=== PATIENT | male | born 1950 | race Caucasian/White ===

== ENCOUNTER → 2016-10-17 | Outpatient (CLI) | payer MEDICARE | END | disposition home or self-care (01) | LOC: LABWHC1 09:13 | PROVIDERS: ATTEND Internal Medicine Endocrinology, Diabetes & Metabolism | DX: E05.90 Thyrotoxicosis, unspecified without thyrotoxic crisis or storm (principal) | CPT/HCPCS: 36415; 84439; 84443 ==

== ENCOUNTER 2016-11-27 13:35 | Emergency (ER) | payer MEDICARE ==
[2016-11-27 13:55] VITALS: RESP 18
[2016-11-27] MEDS ORDERED: NITROGLYCERIN OINT 1 INCH/GM PACKET TOPICAL STA (13:59)
[2016-11-27] MEDS ORDERED: ASPIRIN 81 MG CHEW PO STA (13:59)
--- NOTE | 2016-11-27 14:03 | ED ---
General Adult HPI - General Chief complaint: Chest Pain Stated complaint: Chest Pain Time Seen by Provider: 11/27/16 13:50 Source: patient, RN notes reviewed Mode of arrival: wheelchair - History of Present Illness Initial comments: This is a 66-year-old male who presents to the emergency department with a past medical history significant for angina. Patient states he's been here many times for chest pain. Patient states today the chest pain radiates across his chest and down his left arm. Patient denies any diaphoresis. Patient denies nausea patient denies any shortness of breath. Patient states she call cardiology's office and they sent him in the emergency department. Patient denies any abdominal pain patient denies nausea vomiting diarrhea. Patient denies any recent fever chills or cough. Patient denies headache patient denies numbness weakness. Patient denies any lightheadedness dizziness or near syncopal episode. - Related Data Home Medications Medication Instructions Recorded Confirmed Temazepam [Restoril] 30 mg PO HS 03/05/15 11/27/16 Citalopram Hydrobromide [CeleXA] 40 mg PO DAILY 02/05/16 11/27/16 Morphine Sulfate Ir [MSIR] 15 mg PO BID PRN 02/05/16 11/27/16 Fluticasone Nasal [place] [Flonase 2 spray EA NOSTRIL BID 05/30/16 11/27/16 Nasal [place]] Levocetirizine Dihydrochloride 5 mg PO HS 07/13/16 11/27/16 [Xyzal] Tamsulosin [Flomax] 0.4 mg PO HS 07/13/16 11/27/16 ALPRAZolam [Xanax] 0.25 mg PO DAILY PRN 07/15/16 11/27/16 Hyoscyamine Sulfate [Levsin-Sl] 0.125 mg SL AC-TID PRN 08/04/16 11/27/16 Capsaicin Cream [Trixaicin Cream] 1 applic TOPICAL Q12H PRN 11/27/16 11/27/16 Lidocaine 5% Oint [Xylocaine 5% 1 applic TOPICAL TID PRN 11/27/16 11/27/16 Oint] Lisinopril [Zestril] 10 mg PO DAILY 11/27/16 11/27/16 metFORMIN HCL [Glucophage Xr] 500 mg PO AC-BRKFST 11/27/16 11/27/16 Allergies Allergy/AdvReac Type Severity Reaction Status Date / Time cephalexin monohydrate Allergy Rash/Hives Verified 11/27/16 15:01 [From Keflex] clarithromycin [From Biaxin] Allergy Unknown Verified 11/27/16 15:01 gentamicin [Gentamicin] Allergy Unknown Verified 11/27/16 15:01 naproxen Allergy Unknown Verified 11/27/16 15:01 Penicillins Allergy Anaphylaxis Verified 11/27/16 15:01 Sulfa (Sulfonamide Allergy Rash/Hives Verified 11/27/16 15:01 Antibiotics) promethazine AdvReac Nausea & Verified 11/27/16 15:01 Vomiting Review of Systems ROS Statement: Those systems with pertinent positive or pertinent negative responses have been documented in the HPI. ROS Other: All systems not noted in ROS Statement are negative. Past Medical History Past Medical History: Chest Pain / Angina, Diabetes Mellitus, GERD/Reflux, Hypertension, Prostate Disorder Additional Past Medical History / Comment(s): migraines, diverticulosis, kidney stones, neurpathy hands & feet, low BACK PAIN-sees Dr. Jackson, History of Any Multi-Drug Resistant Organisms: None Reported Past Surgical History: Cholecystectomy, Heart Catheterization, Hernia Repair, Orthopedic Surgery Additional Past Surgical History / Comment(s): EGD , Laparoscopic Mireya Fundoplasty, lap uma, CYSTOSCOPY AND LITHITRIPSY LT URETERAL STENT-SINCE REMOVED. RIGHT BREAST BIOPSY, TOTAL LT KNEE ; LT FOOT , LARA INGUINAL HERNIA, PERCUTANEOUS NEPHROLITHOTOMY. BILATERAL hand surgery. , back procedure for nerve endings and [facility], colonoscopy.ESOPHGEAL DILATION Past Anesthesia/Blood Transfusion Reactions: No Reported Reaction, Motion Sickness Past Psychological History: Anxiety, Panic Disorder Additional Psychological History / Comment(s): . Smoking Status: Former smoker Past Alcohol Use History: None Reported Additional Past Alcohol Use History / Comment(s): STARTED SMOKING AT AGE 12, SMOKED 1 PPD, QUIT 2012 Past Drug Use History: None Reported - Past Family History Father Family Medical History: Cancer Mother Family Medical History: Liver Disease Additional Family Medical History / Comment(s): Mother had hepatitis. General Exam - General Exam Comments Initial Comments: GENERAL: Patient is well-developed and well-nourished. Patient is nontoxic and well- hydrated and is in mild distress. ENT: Neck is soft and supple. No significant lymphadenopathy is noted. Oropharynx is clear. Moist mucous membranes. Neck has full range of motion without eliciting any pain. EYES: The sclera were anicteric and conjunctiva were pink and moist. Extraocular movements were intact and pupils were equal round and reactive to light. Eyelids were unremarkable. PULMONARY: Unlabored respirations. Good breath sounds bilaterally. No audible rales rhonchi or wheezing was noted. CARDIOVASCULAR: Patient states that the chest pain is reproducible when I palpate his chest however it does radiate down his left arm ABDOMEN: Soft and nontender with normal bowel sounds. No palpable organomegaly was noted. There is no palpable pulsatile mass. SKIN: Skin is clear with no lesions or rashes and otherwise unremarkable. NEUROLOGIC: Patient is alert and oriented x3. Cranial nerves II through XII are grossly intact. Motor and sensory are also intact. Normal speech, volume and content. Symmetrical smile. MUSCULOSKELETAL: Normal extremities with adequate strength and full range of motion. No lower extremity swelling or edema. No calf tenderness. LYMPHATICS: No significant lymphadenopathy is noted PSYCHIATRIC: Normal psychiatric evaluation. Normal interpersonal interactions appears functionally intact in deals appropriately with others. No signs of depression. No signs of anxiety. Course Vital Signs 11/27/16 11/27/16 11/27/16 13:50 14:11 14:47 Temperature 98.7 F Pulse Rate 73 71 72 Respiratory 18 18 18 Rate Blood Pressure 138/70 127/67 109/60 O2 Sat by Pulse 95 95 Oximetry Medical Decision Making - Medical Decision Making EKG shows sinus rhythm with occasional PVC at 70 bpm. It was 172 QRS is 96 Q-T intervals 442 QTC is 477 per patient's EKG shows no ST segment elevation or T wave abnormalities. Chest x-ray shows no acute abnormality. I spoke with Dr. Pascal about the patient's results Dr. Pascal wanted the patient to follow-up with him later this week. Patient stated he already had a follow- up appointment. - Lab Data Result diagrams: 11/27/16 14:00 11/27/16 14:00 Lab Results 11/27/16 11/27/16 11/27/16 Range/Units 14:00 14:00 14:00 WBC 10.8 H (3.8-10.6) k/uL RBC 4.30 (4.30-5.90) m/uL Hgb 13.2 (13.0-17.5) gm/dL Hct 41.2 (39.0-53.0) % MCV 95.8 (80.0-100.0) fL MCH 30.7 (25.0-35.0) pg MCHC 32.1 (31.0-37.0) g/dL RDW 21.0 H (11.5-15.5) % Plt Count 296 (150-450) k/uL Neutrophils % 60 % Lymphocytes % 26 % Monocytes % 8 % Eosinophils % 2 % Basophils % 2 % Neutrophils # 6.4 (1.3-7.7) k/uL Lymphocytes # 2.8 (1.0-4.8) k/uL Monocytes # 0.9 (0-1.0) k/uL Eosinophils # 0.2 (0-0.7) k/uL Basophils # 0.2 (0-0.2) k/uL Hypochromasia Slight Anisocytosis Moderate Macrocytosis Slight PT (9.0-12.0) sec INR (<1.1) APTT (22.0-30.0) sec Sodium 143 (137-145) mmol/L Potassium 4.1 (3.5-5.1) mmol/L Chloride 107 (98-107) mmol/L Carbon Dioxide 26 (22-30) mmol/L Anion Gap 10 mmol/L BUN 13 (9-20) mg/dL Creatinine 0.82 (0.66-1.25) mg/dL Est GFR (MDRD) Af Amer >60 (>60 ml/min/1.73 sqM) Est GFR (MDRD) Non-Af >60 (>60 ml/min/1.73 sqM) Glucose 140 H (74-99) mg/dL Calcium 9.3 (8.4-10.2) mg/dL Magnesium 1.7 (1.6-2.3) mg/dL Total Bilirubin 1.0 (0.2-1.3) mg/dL AST 23 (17-59) U/L ALT 26 (21-72) U/L Alkaline Phosphatase 357 H (38-126) U/L Total Creatine Kinase 124 (55-170) U/L CK-MB (CK-2) 2.4 (0.0-2.4) ng/mL CK-MB (CK-2) Rel Index 1.9 Troponin I <0.012 (0.000-0.034) ng/mL Total Protein 6.9 (6.3-8.2) g/dL Albumin 4.2 (3.5-5.0) g/dL 11/27/16 Range/Units 14:00 WBC (3.8-10.6) k/uL RBC (4.30-5.90) m/uL Hgb (13.0-17.5) gm/dL Hct (39.0-53.0) % MCV (80.0-100.0) fL MCH (25.0-35.0) pg MCHC (31.0-37.0) g/dL RDW (11.5-15.5) % Plt Count (150-450) k/uL Neutrophils % % Lymphocytes % % Monocytes % % Eosinophils % % Basophils % % Neutrophils # (1.3-7.7) k/uL Lymphocytes # (1.0-4.8) k/uL Monocytes # (0-1.0) k/uL Eosinophils # (0-0.7) k/uL Basophils # (0-0.2) k/uL Hypochromasia Anisocytosis Macrocytosis PT 11.5 (9.0-12.0) sec INR 1.1 (<1.1) APTT 23.8 (22.0-30.0) sec Sodium (137-145) mmol/L Potassium (3.5-5.1) mmol/L Chloride (98-107) mmol/L Carbon Dioxide (22-30) mmol/L Anion Gap mmol/L BUN (9-20) mg/dL Creatinine (0.66-1.25) mg/dL Est GFR (MDRD) Af Amer (>60 ml/min/1.73 sqM) Est GFR (MDRD) Non-Af (>60 ml/min/1.73 sqM) Glucose (74-99) mg/dL Calcium (8.4-10.2) mg/dL Magnesium (1.6-2.3) mg/dL Total Bilirubin (0.2-1.3) mg/dL AST (17-59) U/L ALT (21-72) U/L Alkaline Phosphatase (38-126) U/L Total Creatine Kinase (55-170) U/L CK-MB (CK-2) (0.0-2.4) ng/mL CK-MB (CK-2) Rel Index Troponin I (0.000-0.034) ng/mL Total Protein (6.3-8.2) g/dL Albumin (3.5-5.0) g/dL Disposition Clinical Impression: Atypical chest pain Disposition: HOME SELF-CARE Condition: Good Instructions: Chest Pain (ED) Referrals: Vinny Pascal DO [Primary Care Provider] - 1-2 days Time of Disposition: 15:10
[2016-11-27 14:16] LABS: Anisocytosis Moderate; Basophils # (A) 0.2 k/uL (0-0.2); Basophils % (A) 2 %; CH 31.6; Eosinophils # (A) 0.2 k/uL (0-0.7); Eosinophils % (A) 2 %; HCT 41.2 % (39.0-53.0); HDW 3.39; HGB 13.2 gm/dL (13.0-17.5); Hypochromasia Slight; Luc # (Auto) 0.34; Luc % (Auto) 3; Lymphocytes # (A) 2.8 k/uL (1.0-4.8); Lymphocytes % (A) 26 %; MCH 30.7 pg (25.0-35.0); MCHC 32.1 g/dL (31.0-37.0); MCV 95.8 fL (80.0-100.0); Macrocytosis Slight; Mean Platelet Volume 9.3; Monocytes # (A) 0.9 k/uL (0-1.0); Monocytes % (A) 8 %; Neutrophils # (A) 6.4 k/uL (1.3-7.7); Neutrophils % (A) 60 %; WBC 10.8 k/uL (3.8-10.6); WBC (Perox) 10.64
[2016-11-27 14:23] LABS: ALT 26 U/L (21-72); AST 23 U/L (17-59); Alkaline Phosphatase 357 U/L (38-126); Anion Gap 10 mmol/L; Blood Urea Nitrogen 13 mg/dL (9-20); Calcium 9.3 mg/dL (8.4-10.2); Carbon Dioxide 26 mmol/L (22-30); Chloride 107 mmol/L (98-107); Glucose 140 mg/dL (74-99); Magnesium 1.7 mg/dL (1.6-2.3); Non-African American GFR(MDRD) >60 (>60 ml/min/1.73 sqM); Potassium 4.1 mmol/L (3.5-5.1); Sodium 143 mmol/L (137-145); Total Protein 6.9 g/dL (6.3-8.2)
[2016-11-27 14:40] LABS: INR 1.1 (<1.1); Partial Thromboplastin Time 23.8 sec (22.0-30.0); Prothrombin Time 11.5 sec (9.0-12.0)
[2016-11-27 14:44] LABS: Creatine Kinase 124 U/L (55-170)
[2016-11-27 14:57] LABS: Creatine Kinase MB 2.4 ng/mL (0.0-2.4); Troponin I <0.012 ng/mL (0.000-0.034)
--- NOTE | 2016-11-27 15:00 | XR ---
EXAMINATION TYPE: XR chest 2V DATE OF EXAM: 11/27/2016 2:55 PM COMPARISON: Chest x-ray August 11, 2016. Older chest x-rays July 13, 2016 HISTORY: Chest pain going into left shoulder. TECHNIQUE: Frontal and lateral views of the chest are obtained. FINDINGS: There is redemonstration of left basilar opacity similar to prior exam. New from June tudy. Right lung remains clear. No pleural effusion or pneumothorax is seen bilaterally. The cardiac silhouette size is within normal limits. The osseous structures are intact. IMPRESSION: Left basilar infiltrate and/or atelectasis redemonstrated
[2016-11-27 15:34] VITALS: BP 112/76; PULSE 79; TEMP 98.8
== END 2016-11-27 15:32 | disposition home or self-care (01) ==
LOC: EC 13:35
DX: R07.89 Other chest pain (principal); M79.602 Pain in left arm; I10 Essential (primary) hypertension; E11.9 Type 2 diabetes mellitus without complications; F41.0 Panic disorder [episodic paroxysmal anxiety]; N42.9 Disorder of prostate, unspecified; Z79.84 Long term (current) use of oral hypoglycemic drugs; Z79.899 Other long term (current) drug therapy; Z87.891 Personal history of nicotine dependence; Z88.0 Allergy status to penicillin; Z88.1 Allergy status to other antibiotic agents; Z88.2 Allergy status to sulfonamides; Z88.6 Allergy status to analgesic agent; Z88.8 Allergy status to other drugs, medicaments and biological substances; Z95.818 Presence of other cardiac implants and grafts
CPT/HCPCS: 36415; 71020; 80053; 82550; 82553; 83735; 84484; 85025; 85610; 85730; 93005; 99285

== ENCOUNTER → 2016-12-04 | Outpatient (CLI) | payer MEDICARE | END | disposition home or self-care (01) | LOC: LABWHC1 11:57 | PROVIDERS: ATTEND Internal Medicine Endocrinology, Diabetes & Metabolism | DX: E05.90 Thyrotoxicosis, unspecified without thyrotoxic crisis or storm (principal) | CPT/HCPCS: 36415; 84439; 84443 ==

== ENCOUNTER → 2016-12-08 | Outpatient (CLI) | payer MEDICARE ==
--- NOTE | 2016-12-08 09:14 | CT ---
EXAMINATION TYPE: CT abdomen wo con DATE OF EXAM: 12/08/2016 8:07 AM COMPARISON: Prior CT 17 July 2016 HISTORY: abdominal pain CT DLP: 326.9 mGycm Automated exposure control for dose reduction was used. TECHNIQUE: Helical acquisition of images was performed from the lung bases through the top of iliac crest to include entire abdomen. CONTRAST: Performed with Oral Contrast and without IV contrast. FINDINGS: LUNG BASES: Some probable basilar scarring again noted, no pleural or pericardial effusion. There is a hiatal hernia or possible dilated distal esophagus as on prior exam. Aortic root is borderline dila jeffrey at 4 cm. LIVER/GB: Cystic foci within the left and right lobe are stable. Gallbladder is absent. PANCREAS: No significant abnormality is seen. SPLEEN: No significant abnormality is seen. ADRENALS: No significant abnormality is seen. KIDNEYS: Cystic focus in the right kidney is not as well seen but is thought to be unchanged. Calcifi cations associated with the left kidney with areas of parenchymal scarring, cortical thinning, cortic al cysts in lower pole, nonobstructing calcification are stable. BOWEL: No significant abnormality is seen. LYMPH NODES: No adenopathy evident OSSEOUS STRUCTURES: Degenerative disc disease with disc loss at L5-S1 is noted, there is a slight sp inal curvature. Diverticular changes associated with the colon. FREE AIR: No Free Air visible ASCITES: None visible. RETROPERITONEAL ADENOPATHY: No Retroperitoneal Adenopathy visible. The appendix is normal IMPRESSION: ESSENTIALLY STABLE EXAM. NO ACUTE ABNORMALITIES EVIDENT NONOBSTRUCTIVE LEFT NEPHROLITHIASIS WITH AREA S OF SCARRING AND CALCIFICATION. POSSIBLE RECURRENT HIATAL HERNIA OR DILATED DISTAL ESOPHAGEAL POUCH
== END ==
LOC: RADCTMAIN 07:15
PROVIDERS: ATTEND Family Medicine
DX: R10.9 Unspecified abdominal pain (principal)
CPT/HCPCS: 74150

== ENCOUNTER → 2016-12-12 | Outpatient (CLI) | payer MEDICARE | END | disposition home or self-care (01) | LOC: LABWHC1 10:21 | PROVIDERS: ATTEND Internal Medicine Endocrinology, Diabetes & Metabolism | DX: E05.90 Thyrotoxicosis, unspecified without thyrotoxic crisis or storm (principal) | CPT/HCPCS: 36415; 84439; 84443; 84480 ==

== ENCOUNTER → 2016-12-18 | Outpatient (CLI) | payer MEDICARE ==
--- NOTE | 2016-12-18 09:28 | FL ---
EXAMINATION TYPE: FL UGI air w esophagus DATE OF EXAM: 12/18/2016 9:10 AM COMPARISON: NONE HISTORY: Repeated esophageal dilatations TECHNIQUE: A double contrast UGI study is performed. FINDINGS: Pick Up Attendant image of the abdomen shows no gross abnormality. There is a small indentation upon the posterior esophagus at C4-5 and C5-6 due to osteophytes. There is no evidence of esophageal stricture. There is a small, self reducing sliding hiatal hernia. Limited views of the stomach are unremarkable. IMPRESSION: 1. NO EVIDENCE OF ESOPHAGEAL STRICTURE AT THIS TIME. 2. SMALL, SELF REDUCING SLIDING HIATAL HERNIA.
== END | disposition home or self-care (01) ==
LOC: RADFLWHC 08:04
PROVIDERS: ATTEND Surgery
DX: K44.9 Diaphragmatic hernia without obstruction or gangrene (principal); K22.4 Dyskinesia of esophagus; Z79.890 Hormone replacement therapy
CPT/HCPCS: 74246

== ENCOUNTER → 2016-12-21 | Outpatient (CLI) | payer MEDICARE ==
--- NOTE | 2016-12-21 13:56 | CT ---
EXAMINATION TYPE: CT abdomen pelvis wo con DATE OF EXAM: 12/21/2016 1:36 PM COMPARISON: 12/08/2016 HISTORY: flank pain, hx of renal stones CT DLP: 419 mGycm FINDINGS: LUNG BASES: No evidence for nodule. No evidence for infiltrate. LIVER/GB: The gallbladder is been surgically excised. No space-occupying hepatic lesion. PANCREAS: No pancreatic mass identified. No inflammatory process seen. SPLEEN: No evidence for splenomegaly. No intrasplenic lesions seen. ADRENALS: No adrenal nodules identified. No evidence for thickening. KIDNEYS: Nonobstructing calculus lower pole left kidney measures 6 mm. Additional areas of the left r enal parenchymal scarring with several calcifications noted unchanged from prior study. There is no e vidence for obstructing calculus. No right-sided renal calculi are evident. Urinary bladder is grossl y unremarkable. Cystic lesion right kidney. BOWEL: Appendix has a normal appearance. No evidence of bowel obstruction. No inflammatory process. T here is small fixed hiatal hernia. Apparent previous of Leo fundoplication. Lymph nodes: No evidence for adenopathy greater than 1 cm. Abdominal aorta: Atheromatous changes seen. No evidence for aneurysm. Genital organs: No significant abnormality. Other: No significant abnormality. IMPRESSION: 1 STABLE EXAMINATION WITHOUT OBSTRUCTION UROPATHY. 2. FIXED HIATAL HERNIA.
== END | disposition home or self-care (01) ==
LOC: RADCTMAIN 13:09
PROVIDERS: ATTEND Urology
DX: K44.9 Diaphragmatic hernia without obstruction or gangrene (principal)
CPT/HCPCS: 74176

== ENCOUNTER 2016-12-22 16:47 | Emergency (ER) | payer MEDICARE ==
[2016-12-22 17:21] VITALS: RESP 18; TEMP 97.5
[2016-12-22] MEDS ORDERED: diphenhydrAMINE 50 MG/ML 1 ML VIAL IVP STA (19:58)
[2016-12-22] MEDS ORDERED: ONDANSETRON 4 MG/2 ML VIAL IVP STA (19:58)
[2016-12-22] MEDS ORDERED: SODIUM CHLORIDE 0.9% 500 ML IV STA (19:58)
[2016-12-22] MEDS ORDERED: PANTOPRAZOLE 40 MG/10 ML VIAL IVP STA (19:58)
[2016-12-22] MEDS ORDERED: SODIUM CHLORIDE 0.9% 1,000 ML IV STA (19:58)
[2016-12-22] MEDS ORDERED: HYDROmorphone 2 MG/ML 1 ML SYRINGE IVP STA ×2 (19:59→21:35)
--- NOTE | 2016-12-22 20:38 | ED ---
General Adult HPI - General Chief complaint: Abdominal Pain Stated complaint: POSS KIDNEY STONES Time Seen by Provider: 12/22/16 19:52 Source: patient, RN notes reviewed, old records reviewed Mode of arrival: ambulatory - History of Present Illness Initial comments: This is a 66-year-old male the ER for evaluation today. Patient is here for evaluation. Pain. About pain that is severe in nature similar to prior history of kidney stone. Patient has multiple issues medically, but also has history of kidney stones, saws urologist yesterday and it follow-up outpatient CT which did show kidney stone this [place], the ER for further evaluation. Patient does complain of left-sided flank pain this time nausea vomiting or diarrhea mild blood in his stool and urine - Related Data Home Medications Medication Instructions Recorded Confirmed Temazepam [Restoril] 30 mg PO HS 03/05/15 12/22/16 Citalopram Hydrobromide [CeleXA] 40 mg PO DAILY 02/05/16 12/22/16 Morphine Sulfate Ir [MSIR] 15 mg PO BID PRN 02/05/16 12/22/16 Fluticasone Nasal [place] [Flonase 2 spray EA NOSTRIL BID 05/30/16 12/22/16 Nasal [place]] Levocetirizine Dihydrochloride 5 mg PO HS 07/13/16 12/22/16 [Xyzal] Tamsulosin [Flomax] 0.4 mg PO HS 07/13/16 12/22/16 ALPRAZolam [Xanax] 0.25 mg PO DAILY PRN 07/15/16 12/22/16 Hyoscyamine Sulfate [Levsin-Sl] 0.125 mg SL AC-TID PRN 08/04/16 12/22/16 Capsaicin Cream [Trixaicin Cream] 1 applic TOPICAL Q12H PRN 11/27/16 12/22/16 Lidocaine 5% Oint [Xylocaine 5% 1 applic TOPICAL TID PRN 11/27/16 12/22/16 Oint] metFORMIN HCL [Glucophage Xr] 500 mg PO AC-BRKFST 11/27/16 12/22/16 Aspirin EC [Ecotrin Low Dose] 81 mg PO DAILY 12/22/16 12/22/16 Isosorbide Mononitrate ER [Imdur] 15 mg PO DAILY 12/22/16 12/22/16 Lisinopril [Prinivil] 5 mg PO DAILY 12/22/16 12/22/16 Omeprazole 40 mg PO BID 12/22/16 12/22/16 Allergies Allergy/AdvReac Type Severity Reaction Status Date / Time cephalexin monohydrate Allergy Rash/Hives Verified 12/22/16 20:24 [From Keflex] clarithromycin [From Biaxin] Allergy Unknown Verified 12/22/16 20:24 gentamicin [Gentamicin] Allergy Unknown Verified 12/22/16 20:24 naproxen Allergy Unknown Verified 12/22/16 20:24 Penicillins Allergy Anaphylaxis Verified 12/22/16 20:24 Sulfa (Sulfonamide Allergy Rash/Hives Verified 12/22/16 20:24 Antibiotics) promethazine AdvReac Nausea & Verified 12/22/16 20:24 Vomiting Review of Systems ROS Statement: Those systems with pertinent positive or pertinent negative responses have been documented in the HPI. ROS Other: All systems not noted in ROS Statement are negative. Past Medical History Past Medical History: Chest Pain / Angina, Diabetes Mellitus, GERD/Reflux, Hypertension, Prostate Disorder Additional Past Medical History / Comment(s): migraines, diverticulosis, kidney stones, neurpathy hands & feet, low BACK PAIN-sees Dr. Jackson, History of Any Multi-Drug Resistant Organisms: None Reported Past Surgical History: Cholecystectomy, Heart Catheterization, Hernia Repair, Orthopedic Surgery Additional Past Surgical History / Comment(s): EGD , Laparoscopic Mireya Fundoplasty, lap uma, CYSTOSCOPY AND LITHITRIPSY LT URETERAL STENT-SINCE REMOVED. RIGHT BREAST BIOPSY, TOTAL LT KNEE ; LT FOOT , LARA INGUINAL HERNIA, PERCUTANEOUS NEPHROLITHOTOMY. BILATERAL hand surgery. , back procedure for nerve endings and [facility], colonoscopy.ESOPHGEAL DILATION Past Anesthesia/Blood Transfusion Reactions: No Reported Reaction, Motion Sickness Past Psychological History: Anxiety, Panic Disorder Additional Psychological History / Comment(s): . Smoking Status: Former smoker Past Alcohol Use History: None Reported Additional Past Alcohol Use History / Comment(s): STARTED SMOKING AT AGE 12, SMOKED 1 PPD, QUIT 2012 Past Drug Use History: None Reported - Past Family History Father Family Medical History: Cancer Mother Family Medical History: Liver Disease Additional Family Medical History / Comment(s): Mother had hepatitis. General Exam General appearance: alert, in no apparent distress Head exam: Present: atraumatic, normocephalic, normal inspection Eye exam: Present: normal appearance, PERRL, EOMI. Absent: scleral icterus, conjunctival injection, periorbital swelling ENT exam: Present: normal exam, mucous membranes moist Neck exam: Present: normal inspection. Absent: tenderness, meningismus, lymphadenopathy Respiratory exam: Present: normal lung sounds bilaterally. Absent: respiratory distress, wheezes, rales, rhonchi, stridor Cardiovascular Exam: Present: regular rate, normal rhythm, normal heart sounds. Absent: systolic murmur, diastolic murmur, rubs, gallop, clicks GI/Abdominal exam: Present: soft, normal bowel sounds. Absent: distended, tenderness, guarding, rebound, rigid Extremities exam: Present: normal inspection, full ROM, normal capillary refill. Absent: tenderness, pedal edema, joint swelling, calf tenderness Back exam: Present: normal inspection Neurological exam: Present: alert, oriented X3, CN II-XII intact Psychiatric exam: Present: normal affect, normal mood Skin exam: Present: warm, dry, intact, normal color. Absent: rash Course Vital Signs 12/22/16 17:18 Temperature 97.5 F L Pulse Rate 64 Respiratory 18 Rate Blood Pressure 122/58 O2 Sat by Pulse 97 Oximetry - Reevaluation(s) Reevaluation #1: 12/22/16 20:45 Patient's pain is resolved Medical Decision Making - Medical Decision Making 66 LEF reevaluation pain. Patient has right-sided flank pain daily with certify pain history of kidney stones. The symptoms resolved with pain control, reviewed CT from yesterday is reviewed and is negative. Lab work is normal at this time patient can be discharged home - Radiology Data Radiology results: report reviewed (CT pelvis is negative for acute disease from yesterday), image reviewed Disposition Clinical Impression: Left flank pain, Nephrolithiasis Disposition: HOME SELF-CARE Condition: Good Instructions: Kidney Stones (ED) Referrals: Vinny Pascal DO [Primary Care Provider] - 1-2 days
[2016-12-22 20:45] LABS: Appearance,Urine Clear (Clear); Bilirubin,Urine Negative (Negative); Glucose,Urine (UA) Negative (Negative); Ketones,Urine Negative (Negative); Leukocyte Esterase,Urine Negative (Negative); Mucus,Urine Moderate /hpf; Nitrite,Urine Negative (Negative); PH, Urine 5.5 (5.0-8.0); Particle Count 3745; Protein,Urine 1+ (Negative); RBC,Urine 1 /hpf (0-5); Specific Gravity,Urine 1.032 (1.001-1.035); UA Billing (MACRO vs. MICRO) MICRO; Urobilinogen,Urine <2.0 mg/dL (<2.0); WBC,Urine 3 /hpf (0-5)
[2016-12-22 20:46] LABS: Anisocytosis Moderate; Aty Lym Flag Slight; CH 30.8; CHCM 32.4; HCT 38.2 % (39.0-53.0); HGB 12.7 gm/dL (13.0-17.5); Hypochromasia Slight; MCH 31.4 pg (25.0-35.0); MCHC 33.2 g/dL (31.0-37.0); MCV 94.8 fL (80.0-100.0); Macrocytosis Slight; Mean Platelet Volume 8.5; Poikilocytosis Slight; RBC 4.03 m/uL (4.30-5.90); RDW 20.8 % (11.5-15.5); WBC (Perox) 8.69
[2016-12-22 20:50] LABS: ALT 29 U/L (21-72); AST 24 U/L (17-59); Alkaline Phosphatase 329 U/L (38-126); Amylase 48 U/L (30-110); Anion Gap 10 mmol/L; Blood Urea Nitrogen 17 mg/dL (9-20); Calcium 9.2 mg/dL (8.4-10.2); Carbon Dioxide 28 mmol/L (22-30); Chloride 106 mmol/L (98-107); Glucose 91 mg/dL (74-99); Non-African American GFR(MDRD) >60 (>60 ml/min/1.73 sqM); Potassium 3.8 mmol/L (3.5-5.1); Sodium 144 mmol/L (137-145); Total Bilirubin 0.7 mg/dL (0.2-1.3); Total Protein 6.6 g/dL (6.3-8.2)
[2016-12-22 20:55] LABS: Add Differential Manual Differential
[2016-12-22 21:02] LABS: Band Neutrophils % 1.5 %; Nucleated Red Blood Cells 2 /100 WBC (0-0); Total Cells Counted 200
[2016-12-22 21:03] LABS: Ovalocytes Present; Target Cells Present; WBC 8.7 k/uL (3.8-10.6)
[2016-12-22 21:04] LABS: Tear Drop Cells Present
[2016-12-22 21:50] VITALS: BP 153/68; PULSE 62
== END 2016-12-22 22:23 | disposition home or self-care (01) ==
LOC: EC 16:47
DX: N20.0 Calculus of kidney (principal); R11.2 Nausea with vomiting, unspecified; E11.9 Type 2 diabetes mellitus without complications; K21.9 Gastro-esophageal reflux disease without esophagitis; I10 Essential (primary) hypertension; E11.40 Type 2 diabetes mellitus with diabetic neuropathy, unspecified; F41.9 Anxiety disorder, unspecified; F41.0 Panic disorder [episodic paroxysmal anxiety]; Z87.891 Personal history of nicotine dependence; Z79.82 Long term (current) use of aspirin; Z79.899 Other long term (current) drug therapy; Z79.51 Long term (current) use of inhaled steroids; Z79.891 Long term (current) use of opiate analgesic; Z88.1 Allergy status to other antibiotic agents; Z88.0 Allergy status to penicillin; Z88.2 Allergy status to sulfonamides; Z88.6 Allergy status to analgesic agent; Z88.8 Allergy status to other drugs, medicaments and biological substances
CPT/HCPCS: 36415; 80053; 82150; 83690; 85025; 81001; 87086; 99284; 96374; 96375 ×3; 96376; 96361; J1170; J1200; J2405; C9113

== ENCOUNTER 2016-12-25 12:48 | Emergency (ER) | payer MEDICARE ==
[2016-12-25] MEDS ORDERED: SODIUM CHLORIDE 0.9% 1,000 ML IV STA (13:46)
--- NOTE | 2016-12-25 14:21 | ED ---
Abdominal Pain HPI - General Chief Complaint: Abdominal Pain Stated Complaint: kidney stones Time Seen by Provider: 12/25/16 13:46 Source: patient, RN notes reviewed Mode of arrival: ambulatory Limitations: no limitations - History of Present Illness Initial Comments: This a 66-year-old male presents emergency Department complaining of left flank pain. Patient has ongoing left flank pain states from kidney stones. Patient had several visits ER for similar problems. Patient states she currently sees urologist Dr. Gonzalez. Patient states that he is scheduled for lithotripsy on Sunday. Patient states that his morphine that he takes at home is not helping currently. Patient states takes morphine for chronic back pain. Patient has a nausea, vomiting diarrhea constipation. Denies any melena or hematochezia. Denies any dysuria or hematuria. - Related Data Home Medications Medication Instructions Recorded Confirmed Temazepam [Restoril] 30 mg PO HS 03/05/15 12/25/16 Citalopram Hydrobromide [CeleXA] 40 mg PO DAILY 02/05/16 12/25/16 Morphine Sulfate Ir [MSIR] 15 mg PO BID PRN 02/05/16 12/25/16 Fluticasone Nasal [place] [Flonase 2 spray EA NOSTRIL BID 05/30/16 12/25/16 Nasal [place]] Levocetirizine Dihydrochloride 5 mg PO HS 07/13/16 12/25/16 [Xyzal] Tamsulosin [Flomax] 0.4 mg PO HS 07/13/16 12/25/16 ALPRAZolam [Xanax] 0.25 mg PO DAILY PRN 07/15/16 12/25/16 Hyoscyamine Sulfate [Levsin-Sl] 0.125 mg SL AC-TID PRN 08/04/16 12/25/16 Capsaicin Cream [Trixaicin Cream] 1 applic TOPICAL Q12H PRN 11/27/16 12/25/16 Lidocaine 5% Oint [Xylocaine 5% 1 applic TOPICAL TID PRN 11/27/16 12/25/16 Oint] metFORMIN HCL [Glucophage Xr] 500 mg PO AC-BRKFST 11/27/16 12/25/16 Aspirin EC [Ecotrin Low Dose] 81 mg PO DAILY 12/22/16 12/25/16 Isosorbide Mononitrate ER [Imdur] 15 mg PO DAILY 12/22/16 12/25/16 Lisinopril [Prinivil] 5 mg PO DAILY 12/22/16 12/25/16 Omeprazole 40 mg PO BID 12/22/16 12/25/16 Allergies Allergy/AdvReac Type Severity Reaction Status Date / Time cephalexin monohydrate Allergy Rash/Hives Verified 12/25/16 13:32 [From Keflex] clarithromycin [From Biaxin] Allergy Unknown Verified 12/25/16 13:32 gentamicin [Gentamicin] Allergy Unknown Verified 12/25/16 13:32 naproxen Allergy Unknown Verified 12/25/16 13:32 Penicillins Allergy Anaphylaxis Verified 12/25/16 13:32 Sulfa (Sulfonamide Allergy Rash/Hives Verified 12/25/16 13:32 Antibiotics) promethazine AdvReac Nausea & Verified 12/25/16 13:32 Vomiting Review of Systems ROS Statement: Those systems with pertinent positive or pertinent negative responses have been documented in the HPI. ROS Other: All systems not noted in ROS Statement are negative. Past Medical History Past Medical History: Chest Pain / Angina, Diabetes Mellitus, GERD/Reflux, Hypertension, Prostate Disorder Additional Past Medical History / Comment(s): migraines, diverticulosis, kidney stones, neurpathy hands & feet, low BACK PAIN-sees Dr. Jackson, History of Any Multi-Drug Resistant Organisms: None Reported Past Surgical History: Cholecystectomy, Heart Catheterization, Hernia Repair, Orthopedic Surgery Additional Past Surgical History / Comment(s): EGD , Laparoscopic Mireya Fundoplasty, lap uma, CYSTOSCOPY AND LITHITRIPSY LT URETERAL STENT-SINCE REMOVED. RIGHT BREAST BIOPSY, TOTAL LT KNEE ; LT FOOT , LARA INGUINAL HERNIA, PERCUTANEOUS NEPHROLITHOTOMY. BILATERAL hand surgery. , back procedure for nerve endings and [facility], colonoscopy.ESOPHGEAL DILATION Past Anesthesia/Blood Transfusion Reactions: No Reported Reaction, Motion Sickness Past Psychological History: Anxiety, Panic Disorder Additional Psychological History / Comment(s): . Smoking Status: Former smoker Past Alcohol Use History: None Reported Additional Past Alcohol Use History / Comment(s): STARTED SMOKING AT AGE 12, SMOKED 1 PPD, QUIT 2012 Past Drug Use History: None Reported - Past Family History Father Family Medical History: Cancer Mother Family Medical History: Liver Disease Additional Family Medical History / Comment(s): Mother had hepatitis. General Exam Limitations: no limitations General appearance: alert, in no apparent distress Head exam: Present: atraumatic, normocephalic, normal inspection Eye exam: Present: normal appearance, PERRL, EOMI. Absent: scleral icterus, conjunctival injection, periorbital swelling Neck exam: Present: normal inspection. Absent: tenderness, meningismus, lymphadenopathy Respiratory exam: Present: normal lung sounds bilaterally. Absent: respiratory distress, wheezes, rales, rhonchi, stridor Cardiovascular Exam: Present: regular rate, normal rhythm, normal heart sounds. Absent: systolic murmur, diastolic murmur, rubs, gallop, clicks GI/Abdominal exam: Present: soft, tenderness (Mild left flank tenderness), normal bowel sounds. Absent: distended, guarding, rebound, rigid Back exam: Absent: CVA tenderness (R), CVA tenderness (L) Skin exam: Present: warm, dry, intact, normal color. Absent: rash Course Vital Signs 12/25/16 12:51 Temperature 97.9 F Pulse Rate 62 Respiratory 20 Rate Blood Pressure 135/65 O2 Sat by Pulse 97 Oximetry Medical Decision Making - Medical Decision Making 66-year-old male present emergency department with chief complaint flank pain. Patient is scheduled for lithotripsy on Sunday. There is no evidence of hematuria or stones in the ureter on x-ray. Patient will be discharged at this time follow-up with urologist. Return parameters were discussed. - Lab Data Result diagrams: 12/25/16 14:20 12/25/16 14:20 Lab Results 12/25/16 12/25/16 12/25/16 Range/Units 14:20 14:20 14:20 WBC 7.7 (3.8-10.6) k/uL RBC 3.63 L (4.30-5.90) m/uL Hgb 11.2 L (13.0-17.5) gm/dL Hct 34.6 L (39.0-53.0) % MCV 95.4 (80.0-100.0) fL MCH 31.0 (25.0-35.0) pg MCHC 32.5 (31.0-37.0) g/dL RDW 21.0 H (11.5-15.5) % Plt Count 265 (150-450) k/uL Sodium 143 (137-145) mmol/L Potassium 4.0 (3.5-5.1) mmol/L Chloride 110 H (98-107) mmol/L Carbon Dioxide 25 (22-30) mmol/L Anion Gap 8 mmol/L BUN 18 (9-20) mg/dL Creatinine 0.80 (0.66-1.25) mg/dL Est GFR (MDRD) Af Amer >60 (>60 ml/min/1.73 sqM) Est GFR (MDRD) Non-Af >60 (>60 ml/min/1.73 sqM) Glucose 102 H (74-99) mg/dL Calcium 9.4 (8.4-10.2) mg/dL Total Bilirubin 0.8 (0.2-1.3) mg/dL AST 21 (17-59) U/L ALT 30 (21-72) U/L Alkaline Phosphatase 332 H (38-126) U/L Total Protein 6.0 L (6.3-8.2) g/dL Albumin 3.7 (3.5-5.0) g/dL Amylase 48 (30-110) U/L Lipase 40 (23-300) U/L Urine Color Light Brown Urine Appearance Clear (Clear) Urine pH 5.5 (5.0-8.0) Ur Specific [place] 1.025 (1.001-1.035) Urine Protein Trace H (Negative) Urine Glucose (UA) Negative (Negative) Urine Ketones 1+ H (Negative) Urine Blood Negative (Negative) Urine Nitrite Negative (Negative) Urine Bilirubin Negative (Negative) Urine Urobilinogen <2.0 (<2.0) mg/dL Ur Leukocyte Esterase Negative (Negative) Disposition Clinical Impression: Chronic pain, Left flank pain Disposition: HOME SELF-CARE Condition: Stable Instructions: Flank Pain (ED) Additional Instructions: Please return to the Emergency Department if symptoms worsen or any other concerns. Time of Disposition: 15:24
[2016-12-25] MEDS ORDERED: HYDROmorphone 1 MG/ML 1 ML SYRINGE IVP STA (14:24)
[2016-12-25 14:44] LABS: ALT 30 U/L (21-72); AST 21 U/L (17-59); Alkaline Phosphatase 332 U/L (38-126); Amylase 48 U/L (30-110); Anion Gap 8 mmol/L; Appearance,Urine Clear (Clear); Bilirubin,Urine Negative (Negative); Blood Urea Nitrogen 18 mg/dL (9-20); Calcium 9.4 mg/dL (8.4-10.2); Carbon Dioxide 25 mmol/L (22-30); Chloride 110 mmol/L (98-107); Glucose 102 mg/dL (74-99); Glucose,Urine (UA) Negative (Negative); Ketones,Urine 1+ (Negative); Leukocyte Esterase,Urine Negative (Negative); Nitrite,Urine Negative (Negative); Non-African American GFR(MDRD) >60 (>60 ml/min/1.73 sqM); PH, Urine 5.5 (5.0-8.0); Protein,Urine Trace (Negative); Sodium 143 mmol/L (137-145); Specific Gravity,Urine 1.025 (1.001-1.035); Total Bilirubin 0.8 mg/dL (0.2-1.3); UA Billing (MACRO vs. MICRO) CHEM; Urobilinogen,Urine <2.0 mg/dL (<2.0)
[2016-12-25 15:04] LABS: Anisocytosis Moderate; Aty Lym Flag Slight; CH 31.3; CHCM 32.8; HCT 34.6 % (39.0-53.0); HDW 3.71; HGB 11.2 gm/dL (13.0-17.5); Hypochromasia Slight; MCHC 32.5 g/dL (31.0-37.0); MCV 95.4 fL (80.0-100.0); Macrocytosis Slight; Mean Platelet Volume 8.5; Poikilocytosis Slight; RBC 3.63 m/uL (4.30-5.90); WBC 7.7 k/uL (3.8-10.6); WBC (Perox) 8.11
--- NOTE | 2016-12-25 15:15 | XR ---
EXAMINATION TYPE: XR KUB DATE OF EXAM ORDERED: 12/25/2016 3:08 PM HISTORY: abdominal pain. COMPARISON: Previous study dated 07/17/2016. FINDINGS: The abdominal gas pattern is normal. There is no evidence of obstruction or free air. Ther e are multiple barium-filled diverticula throughout the colon. No unusual calcifications are seen. IMPRESSION: 1. NO ACUTE INTRA-ABDOMINAL ABNORMALITY. 2. DIVERTICULOSIS.
[2016-12-25 15:39] VITALS: BP 144/66; PULSE 54; RESP 18; TEMP 97.8
[2016-12-25 15:51] LABS: Add Differential Manual Differential
[2016-12-25 15:59] LABS: Nucleated Red Blood Cells 0 /100 WBC (0-0); Ovalocytes Present; Total Cells Counted 200
== END 2016-12-25 15:39 | disposition home or self-care (01) ==
LOC: EC 12:48
DX: R10.9 Unspecified abdominal pain (principal); G89.29 Other chronic pain; R11.2 Nausea with vomiting, unspecified; R19.7 Diarrhea, unspecified; E11.9 Type 2 diabetes mellitus without complications; K21.9 Gastro-esophageal reflux disease without esophagitis; Z87.891 Personal history of nicotine dependence; Z79.82 Long term (current) use of aspirin; Z79.84 Long term (current) use of oral hypoglycemic drugs; Z79.899 Other long term (current) drug therapy; Z88.1 Allergy status to other antibiotic agents; Z88.6 Allergy status to analgesic agent; Z88.0 Allergy status to penicillin; Z88.2 Allergy status to sulfonamides; Z87.442 Personal history of urinary calculi; Z87.438 Personal history of other diseases of male genital organs; Z87.19 Personal history of other diseases of the digestive system; Z90.49 Acquired absence of other specified parts of digestive tract; Z98.890 Other specified postprocedural states; Z95.818 Presence of other cardiac implants and grafts
CPT/HCPCS: 99284; 96374; 96361; 36415; 80053; 82150; 83690; 85025; 81003; 74000; J1170

== ENCOUNTER 2016-12-28 13:58 | Observation (INO) | payer MEDICARE ==
[2016-12-27 10:06] VITALS: BMI 25.8
[2016-12-28 17:07] LABS: Glucose,Whole Blood 105 mg/dL (75-99)
[2016-12-28] MEDS ORDERED: MIDAZOLAM 2 MG/2 ML VIAL IV PRN (17:19)
[2016-12-28] MEDS ORDERED: SCOPOLAMINE 1.5MG/72HR PATCH TRANSDERM ONE (17:19)
[2016-12-28] MEDS ORDERED: LACTATED RINGERS 1,000 ML IV SCH (17:19)
[2016-12-28] MEDS ORDERED: HYDROmorphone 1 MG/ML 1 ML SYRINGE IVP PRN (17:19)
[2016-12-28] MEDS: HYDROmorphone 1 MG/ML 1 ML SYRINGE IVP PRN ×3 (19:57→23:51)
[2016-12-28] MEDS: DEXAMETHASONE SOD PHOSPHATE 10 MG/ML 1 ML VIAL IV ONE (20:30)
[2016-12-28] MEDS: ONDANSETRON 4 MG/2 ML VIAL IVP ONE (20:31)
[2016-12-28] MEDS: LACTATED RINGERS 1,000 ML IV SCH (20:32)
[2016-12-28 21:04] LABS: Glucose,Whole Blood 126 mg/dL (75-99)
[2016-12-29] MEDS: HYDROmorphone 1 MG/ML 1 ML SYRINGE IVP PRN ×6 (01:50→18:21)
[2016-12-29] MEDS ORDERED: DEXTROSE 5% IVPB ONE ×2 (05:00)
[2016-12-29] MEDS ORDERED: CIPROFLOXACIN IVPB ONE ×2 (05:00)
[2016-12-29] MEDS ORDERED: WATER IVPB ONE ×2 (05:00)
[2016-12-29 07:16] LABS: Glucose,Whole Blood 129 mg/dL (75-99)
--- NOTE | 2016-12-29 09:51 | XR ---
EXAMINATION TYPE: XR KUB DATE OF EXAM: 12/29/2016 9:27 AM CLINICAL DATA: 66-year-old male calculus of kidney, preop for left sided surgery, [facility] COMPARISON: 12/25/2016 FINDINGS: Lung bases are clear. A few 4 mm and smaller calcifications are present in the left mid abdomen. Some retained oral contrast seen within colonic diverticula along the transverse colon and especially in the sigmoid colon. Nonobstructive bowel gas pattern. There is moderate stool in the cecum and as cending colon. At least mild degenerative changes at both hips. Additional degenerative changes lower lumbar spine. IMPRESSION: 1. A few 4 mm small calcification seen on the left suggestive of nephrolithiasis. 2. Nonobstructive bowel gas pattern. 3. Colonic diverticulosis.
[2016-12-29] MEDS: LACTATED RINGERS 1,000 ML IV SCH (10:24)
[2016-12-29 12:16] LABS: Glucose,Whole Blood 92 mg/dL (75-99)
[2016-12-29] MEDS ORDERED: IV FLUID CONTINUATION 1,000 ML IV ONE (13:50)
[2016-12-29] MEDS: DEXAMETHASONE SOD PHOSPHATE 10 MG/ML 1 ML VIAL IV ONE (13:54)
[2016-12-29] MEDS: ONDANSETRON 4 MG/2 ML VIAL IVP ONE (13:55)
[2016-12-29 13:59] LABS: Glucose,Whole Blood 82 mg/dL (75-99)
[2016-12-29] MEDS ORDERED: LIDOCAINE 1% INJ 10MG/ML (20 ML MDV) ONE (14:37)
[2016-12-29] MEDS ORDERED: SUCCINYLCHOLINE CHLORIDE 100 MG/5 ML SYR IV ONE (14:37)
[2016-12-29] MEDS ORDERED: NEOSTIGMINE 1 MG/ML 10 ML VIAL ONE (14:37)
[2016-12-29] MEDS ORDERED: ROCURONIUM BROMIDE 10 MG/ML 10 ML VIAL IV ONE (14:37)
[2016-12-29] MEDS ORDERED: PROPOFOL 10 MG/ML 20 ML VIAL IV ONE (14:37)
[2016-12-29] MEDS ORDERED: MIDAZOLAM 2 MG/2 ML VIAL ONE (14:37)
[2016-12-29] MEDS ORDERED: fentaNYL (PF) 50 MCG/ML 2 ML AMP ONE (14:37)
[2016-12-29] MEDS ORDERED: HYDROmorphone (PF) 1 MG/ML ONE (14:37)
[2016-12-29] MEDS ORDERED: GLYCOPYRROLATE 0.2 MG/ML 2 ML VIAL ONE (14:37)
[2016-12-29] MEDS ORDERED: LACTATED RINGERS 1,000 ML IV ONE (15:00)
[2016-12-29] MEDS ORDERED: CIPROFLOXACIN/DEXTROSE PMX 400 MG in DEXTROSE/WATER 1 200ML.BAG IVPB STA (15:06)
--- NOTE | 2016-12-29 16:18 | P.OP ---
Date of Procedure: 12/29/16 Preoperative Diagnosis: Left renal calculi Postoperative Diagnosis: Same Procedure(s) Performed: Cystoscopy, left ureteroscopy with holmium laser lithotripsy and stone basketing , left ureteral stent insertion Anesthesia: CELINE Surgeon: Julio Gonzalez Estimated Blood Loss (ml): 5 IV fluids (ml): 800 Pathology: none sent Condition: stable Disposition: PACU Indications for Procedure: He is 68 years old. He has a history of kidney stones, for which he has previously undergone a PCNL and ESWL. He continues to experience significant left lower back and flank pain. A computed tomography scan shows several calcifications which are likely intraparenchymal, related to previous PCNL. However, a 6 mm lower pole calculus is also seen. He now comes for ureteroscopic removal of left renal calculi. Operative Findings: 6 mm left lower pole renal calculus within a calyceal diverticulum. The infundibulum was incised, and the calculus was fragmented. Description of Procedure: The patient was taken to the operating room and placed in the dorsolithotomy position, with legs supported in Rudi stirrups. The external genitalia was prepped and draped sterilely. The 30 lens was used to introduce the 19-[place] Islander Stortz cystoscopic sheath through the urethra and into the bladder under direct vision. The prostatic urethra showed evidence of mild lateral lobe enlargement. The bladder was examined in its entirety. Both ureteral orifices were normal anatomic location and configuration, and clear urine effluxed from both. No tumors or foreign bodies were seen. A 0.038 inch Glidewire was passed through the cystoscope. The left ureteral orifice was cannulated, and the Glidewire was advanced up to the left renal pelvis. An 11/13-[place] Islander ureteral access catheter was placed over the wire, up to the proximal ureter. The Olympus flexible mini ureteroscope was then passed through the ureteral access catheter sheath. The ureteroscope was advanced under direct vision into the left renal pelvis. Each calyx was examined. No calculi were seen within the mid pole and upper pole calyces. Likewise, the lower pole calyces did not contain any calculi. However, a narrowed infundibulum was identified, and in the distance a calculus was identified within a calyceal diverticulum. The 200 micron Holmium laser probe was passed through the ureteroscope, and the infundibulum was incised. This allowed the ureteroscope could be advanced into the calyx, and lithotripsy was performed. The calculus was fragmented, leaving most calculus fragments only 1-2 mm in size. A portion of the calculus, likely measuring 2-3 mm in size, could not be readily fragmented as it remained outside the field of vision despite multiple maneuvers. A 1.9-[place] Islander nitinol basket was used to remove many of these fragments, but these measured only approximately 1 mm in size and therefore this was discontinued. By now, a small clot had formed within the calyceal diverticulum and it was not possible to identify any remaining calculus fragments. Therefore, the ureteroscope was removed. The Glidewire was passed through the ureteral access catheter sheath, which was then removed. The Glidewire was backloaded into the cystoscope, which was passed into the bladder. A 26 cm, 4.8-[place] Islander double-J ureteral stent was placed over the wire. Proper stent positioning was verified fluoroscopically and endoscopically. The bladder was emptied and the cystoscope removed. The string of the stent was taped to the penis. The patient tolerated the procedure well and was taken to the recovery room in stable condition.
[2016-12-29 16:20] VITALS: TEMP 99.3
--- NOTE | 2016-12-29 16:25 | FL ---
FLUOROSCOPY 25 seconds of fluoroscopy time were utilized during left-sided lithotripsy. 1 images document the pro cedure.
[2016-12-29 16:27] LABS: Glucose,Whole Blood 133 mg/dL (75-99)
[2016-12-29 16:50] VITALS: RESP 16
[2016-12-29 17:12] LABS: Glucose,Whole Blood 109 mg/dL (75-99)
[2016-12-29 19:14] VITALS: BP 143/83; PULSE 61
--- NOTE | 2017-01-11 18:19 | P.DS ---
Providers Date of admission: 12/28/16 13:58 Expected date of discharge: 12/29/16 Attending physician: Julio Gonzalez Primary care physician: [facility] Course: He is 68 years old. He has a history of kidney stones, for which he has previously undergone a PCNL and ESWL. He continues to experience significant left lower back and flank pain. A computed tomography scan shows several calcifications which are likely intraparenchymal, related to previous PCNL. However, a 6 mm lower pole calculus is also seen. He is admitted for parenteral analgesics, and to undergo ureteroscopic removal of left renal calculi. Procedures: Cystoscopy, left ureteroscopy with holmium laser lithotripsy and stone basketing , left ureteral stent insertion on 12/29/2016 Patient Condition at Discharge: Good Plan - Discharge Summary New Discharge Prescriptions: Hydrocodone/Acetaminophen [[place] 5-325] 1 - 2 each PO Q4HR PRN #20 tab PRN Reason: Pain Discharge Medication List Temazepam [Restoril] 30 mg PO HS 03/05/15 [History] Citalopram Hydrobromide [CeleXA] 40 mg PO DAILY 02/05/16 [History] Morphine Sulfate Ir [MSIR] 15 mg PO BID PRN 02/05/16 [History] Fluticasone Nasal [place] [Flonase Nasal [place]] 2 spray EA NOSTRIL BID 05/30/16 [ History] Levocetirizine Dihydrochloride [Xyzal] 5 mg PO HS 07/13/16 [History] Tamsulosin [Flomax] 0.4 mg PO HS 07/13/16 [History] ALPRAZolam [Xanax] 0.25 mg PO DAILY PRN 07/15/16 [History] Hyoscyamine Sulfate [Levsin-Sl] 0.125 mg SL AC-TID PRN 08/04/16 [History] Capsaicin Cream [Trixaicin Cream] 1 applic TOPICAL Q12H PRN 11/27/16 [History] metFORMIN HCL [Glucophage Xr] 500 mg PO AC-BRKFST 11/27/16 [History] Aspirin EC [Ecotrin Low Dose] 81 mg PO DAILY 12/22/16 [History] Isosorbide Mononitrate ER [Imdur] 30 mg PO DAILY 12/22/16 [History] Lisinopril [Prinivil] 5 mg PO DAILY 12/22/16 [History] Omeprazole 40 mg PO BID 12/22/16 [History] Nitrofurantoin Monohyd/M-Cryst [Macrobid] 100 mg PO Q12HR 12/27/16 [History] Hydrocodone/Acetaminophen [[place] 5-325] 1 - 2 each PO Q4HR PRN #20 tab 12/29/16 [Rx] Follow up Appointment(s)/Referral(s): Ngozi Sen PAC [PHYSICIAN ORDNANCE OFFICER] - 01/03/17 Patient Instructions/Handouts: Kidney Stones (GEN) Activity/Diet/Wound Care/Special Instructions: Drink plenty of fluids. Diet as tolerated. Activities as tolerated. Patient to lie in the right lateral decubitus position to enhance stone passage from the left kidney. Discharge Disposition: HOME SELF-CARE
== END 2016-12-29 19:55 | disposition home or self-care (01) ==
LOC: 3OBS 13:58 → EDSTATUS 12-29 14:15
PROVIDERS: ADMIT Urology; ATTEND Urology
DX: N20.0 Calculus of kidney (principal); Z87.442 Personal history of urinary calculi; E11.9 Type 2 diabetes mellitus without complications; F32.9 Major depressive disorder, single episode, unspecified; Z79.899 Other long term (current) drug therapy; K21.9 Gastro-esophageal reflux disease without esophagitis; Z79.84 Long term (current) use of oral hypoglycemic drugs; Z88.0 Allergy status to penicillin; Z88.1 Allergy status to other antibiotic agents; Z88.2 Allergy status to sulfonamides; Z88.8 Allergy status to other drugs, medicaments and biological substances; M51.36 Other intervertebral disc degeneration, lumbar region; I10 Essential (primary) hypertension; F17.200 Nicotine dependence, unspecified, uncomplicated; N40.1 Benign prostatic hyperplasia with lower urinary tract symptoms; M19.90 Unspecified osteoarthritis, unspecified site; Z80.42 Family history of malignant neoplasm of prostate; Z80.9 Family history of malignant neoplasm, unspecified; Z83.3 Family history of diabetes mellitus; Z82.49 Family history of ischemic heart disease and other diseases of the circulatory system
CPT/HCPCS: 52356; 96374; 96376 ×2; 80048; 85025; 74000; G0378 ×2; G0379; C2625; C1769; J2250; J1100 ×2; J2710; J2405 ×2; J2001; J3010; J0744; J1170 ×2; J0330; J2704

== ENCOUNTER → 2016-12-28 | Outpatient (CLI) | payer MEDICARE ==
[2016-12-28 14:22] LABS: Anisocytosis Moderate; Basophils # (A) 0.1 k/uL (0-0.2); Basophils % (A) 1 %; CH 31.3; CHCM 31.9; Eosinophils # (A) 0.2 k/uL (0-0.7); Eosinophils % (A) 2 %; HCT 37.6 % (39.0-53.0); HDW 3.55; HGB 11.8 gm/dL (13.0-17.5); Hypochromasia Moderate; Luc # (Auto) 0.32; Luc % (Auto) 3; Lymphocytes # (A) 2.7 k/uL (1.0-4.8); Lymphocytes % (A) 29 %; MCH 30.8 pg (25.0-35.0); MCHC 31.4 g/dL (31.0-37.0); MCV 98.2 fL (80.0-100.0); Macrocytosis Slight; Mean Platelet Volume 8.3; Monocytes # (A) 0.8 k/uL (0-1.0); Monocytes % (A) 8 %; Neutrophils # (A) 5.3 k/uL (1.3-7.7); Neutrophils % (A) 57 %; Poikilocytosis Slight; RBC 3.83 m/uL (4.30-5.90); RDW 21.4 % (11.5-15.5); WBC 9.3 k/uL (3.8-10.6); WBC (Perox) 9.62
[2016-12-28 14:31] LABS: Anion Gap 11 mmol/L; Blood Urea Nitrogen 16 mg/dL (9-20); Calcium 9.5 mg/dL (8.4-10.2); Carbon Dioxide 26 mmol/L (22-30); Chloride 108 mmol/L (98-107); Glucose 90 mg/dL (74-99); Non-African American GFR(MDRD) >60 (>60 ml/min/1.73 sqM); Potassium 3.6 mmol/L (3.5-5.1); Sodium 145 mmol/L (137-145)
== END | disposition home or self-care (01) ==
LOC: LABPAT 13:24
PROVIDERS: ATTEND Urology
DX: Z01.810 Encounter for preprocedural cardiovascular examination (principal); I10 Essential (primary) hypertension; N20.0 Calculus of kidney; E11.9 Type 2 diabetes mellitus without complications; K57.90 Diverticulosis of intestine, part unspecified, without perforation or abscess without bleeding
CPT/HCPCS: 80048; 85025

== ENCOUNTER → 2017-01-17 | Outpatient (CLI) | payer MEDICARE ==
--- NOTE | 2017-01-17 14:34 | XR ---
EXAMINATION TYPE: XR KUB DATE OF EXAM: 01/17/2017 2:26 PM COMPARISON: 12/29/2016 HISTORY: 2 weeks post placental chip seen on the left TECHNIQUE: One view abdominal series FINDINGS: The osseous structures are intact. The bowel gas pattern is nonspecific. Retained contrast within th e colon noted. Arthropathy of the hips seen. Left kidney: At least 4 calcifications are seen in the left kidney the largest measuring 3.8 mm and s table. No definite new calcifications along the paraspinal line or in pelvis to suggest ureteral calc ifications. Right kidney: No definite calcifications overlying the right kidney. IMPRESSION: 1. Stable left-sided nephrolithiasis.
== END | disposition home or self-care (01) ==
LOC: RADXRMAIN 14:13
PROVIDERS: ATTEND Physician Assistant
DX: N20.0 Calculus of kidney (principal)
CPT/HCPCS: 74000

== ENCOUNTER 2017-01-25 12:05 | Emergency (ER) | payer MEDICARE ==
[2017-01-25 12:26] VITALS: BP 135/62; PULSE 74; RESP 16; TEMP 98
--- NOTE | 2017-01-25 13:26 | ED ---
ENT HPI - General Chief complaint: ENT Stated complaint: Jaw Pain Time Seen by Provider: 01/25/17 13:09 Source: patient, RN notes reviewed Mode of arrival: ambulatory Limitations: no limitations - History of Present Illness Initial comments: Patient is a 67-year-old male presents emergency room for evaluation of jaw pain. Patient states he has a history of TMJ. Patient states his TMJ pain has worsened over the past 2 days. Patient states his dentist told him to come here to make sure he does not have locked jaw. Patient states he is able to open and close his mouth fully. Patient denies any facial trauma. Patient states he takes morphine at home for chronic back pain with no relief of symptoms. Patient denies any fevers or chills. Patient denies dental pain or dental trauma. Patient denies headache or dizziness. Patient denies neck pain. - Related Data Home Medications Medication Instructions Recorded Confirmed Temazepam [Restoril] 30 mg PO HS 03/05/15 12/28/16 Citalopram Hydrobromide [CeleXA] 40 mg PO DAILY 02/05/16 12/28/16 Morphine Sulfate Ir [MSIR] 15 mg PO BID PRN 02/05/16 12/28/16 Fluticasone Nasal [place] [Flonase 2 spray EA NOSTRIL BID 05/30/16 12/28/16 Nasal [place]] Levocetirizine Dihydrochloride 5 mg PO HS 07/13/16 12/28/16 [Xyzal] Tamsulosin [Flomax] 0.4 mg PO HS 07/13/16 12/28/16 ALPRAZolam [Xanax] 0.25 mg PO DAILY PRN 07/15/16 12/28/16 Hyoscyamine Sulfate [Levsin-Sl] 0.125 mg SL AC-TID PRN 08/04/16 12/28/16 Capsaicin Cream [Trixaicin Cream] 1 applic TOPICAL Q12H PRN 11/27/16 12/28/16 metFORMIN HCL [Glucophage Xr] 500 mg PO AC-BRKFST 11/27/16 12/28/16 Aspirin EC [Ecotrin Low Dose] 81 mg PO DAILY 12/22/16 12/28/16 Isosorbide Mononitrate ER [Imdur] 30 mg PO DAILY 12/22/16 12/28/16 Lisinopril [Prinivil] 5 mg PO DAILY 12/22/16 12/28/16 Omeprazole 40 mg PO BID 12/22/16 12/28/16 Nitrofurantoin Monohyd/M-Cryst 100 mg PO Q12HR 12/27/16 12/28/16 [Macrobid] Previous Rx's Medication Instructions Recorded Hydrocodone/Acetaminophen [[place] 1 - 2 each PO Q4HR PRN #20 tab 12/29/16 5-325] Allergies Allergy/AdvReac Type Severity Reaction Status Date / Time cephalexin monohydrate Allergy Rash/Hives Verified 01/25/17 12:23 [From Keflex] clarithromycin [From Biaxin] Allergy Unknown Verified 01/25/17 12:23 gentamicin [Gentamicin] Allergy Unknown Verified 01/25/17 12:23 naproxen Allergy Unknown Verified 01/25/17 12:23 Penicillins Allergy Anaphylaxis Verified 01/25/17 12:23 Sulfa (Sulfonamide Allergy Rash/Hives Verified 01/25/17 12:23 Antibiotics) promethazine AdvReac Nausea & Verified 01/25/17 12:23 Vomiting Review of Systems ROS Statement: Those systems with pertinent positive or pertinent negative responses have been documented in the HPI. ROS Other: All systems not noted in ROS Statement are negative. Past Medical History Past Medical History: Chest Pain / Angina, Diabetes Mellitus, GERD/Reflux, Hypertension, Prostate Disorder Additional Past Medical History / Comment(s): migraines, diverticulosis, kidney stones, neurpathy hands & feet, low BACK PAIN-sees Dr. Jackson, History of Any Multi-Drug Resistant Organisms: None Reported Past Surgical History: Cholecystectomy, Heart Catheterization, Hernia Repair, Orthopedic Surgery Additional Past Surgical History / Comment(s): EGD , Laparoscopic Mireya Fundoplasty, lap uma, CYSTOSCOPY AND LITHITRIPSY LT URETERAL STENT-SINCE REMOVED. RIGHT BREAST BIOPSY, TOTAL LT KNEE ; LT FOOT , LARA INGUINAL HERNIA, PERCUTANEOUS NEPHROLITHOTOMY. BILATERAL hand surgery. , back procedure for nerve endings and [facility], colonoscopy.ESOPHGEAL DILATION Past Anesthesia/Blood Transfusion Reactions: Motion Sickness Additional Past Anesthesia/Blood Transfusion Reaction / Comment(s): NEVER HAD ANY BLOOD TRANSFUSIONS Past Psychological History: Anxiety, Panic Disorder Additional Psychological History / Comment(s): . Smoking Status: Former smoker Past Alcohol Use History: None Reported Additional Past Alcohol Use History / Comment(s): STARTED SMOKING AT AGE 12, SMOKED 1 PPD, QUIT 2012 Past Drug Use History: None Reported - Past Family History Father Family Medical History: Cancer Mother Family Medical History: Liver Disease Additional Family Medical History / Comment(s): Mother had hepatitis. General Exam - General Exam Comments Initial Comments: Sitting in exam room, no acute distress. Limitations: no limitations General appearance: alert, in no apparent distress Head exam: Present: atraumatic, normocephalic, normal inspection Eye exam: Present: normal appearance ENT exam: Present: normal exam, other (pain on palpating over b/l temporal mandibular joints. No swelling or deformity noted. Patient is able to fully open and close mouth.) Expanded Mouth exam: Present: normal external inspection Teeth exam: Present: normal inspection. Absent: fractured tooth #, dental tenderness # Neck exam: Present: normal inspection, full ROM. Absent: tenderness, lymphadenopathy Respiratory exam: Absent: respiratory distress Extremities exam: Present: normal inspection Back exam: Present: normal inspection Neurological exam: Present: alert, oriented X3, CN II-XII intact, normal gait Psychiatric exam: Present: normal affect, normal mood Skin exam: Present: warm, dry, intact, normal color. Absent: rash Course Vital Signs 01/25/17 12:23 Temperature 98 F Pulse Rate 74 Respiratory 16 Rate Blood Pressure 135/62 O2 Sat by Pulse 96 Oximetry Medical Decision Making - Medical Decision Making Patient is a 67-year-old male presents to the emergency room for evaluation of jaw pain. Patient states his TMJ pain is worsening today. I did research patient on [employer] prescription system. Patient was recently prescribed morphine on 01/12/17 to last for 30 days. Advised patient to continue with that medication as needed. Patient will not be prescribed any pain medication here. Advised patient to follow-up with his dentist. Return parameters discussed. Case discussed with Dr. Méndez. Disposition Clinical Impression: TMJ (temporomandibular joint disorder) Disposition: HOME SELF-CARE Condition: Good Instructions: Temporomandibular Disorder (ED) Additional Instructions: Continue taking at home pain medications as needed. Please follow up with primary care provider or dentist in 1-2 days. If any new symptom arises or symptoms worsen, return to ER as soon as possible. Referrals: Vinny Pascal DO [Primary Care Provider] - 1-2 days Time of Disposition: 13:24
== END 2017-01-25 13:46 | disposition home or self-care (01) ==
LOC: EC 12:05
DX: M26.603 Bilateral temporomandibular joint disorder, unspecified (principal); E11.9 Type 2 diabetes mellitus without complications; I10 Essential (primary) hypertension; K21.9 Gastro-esophageal reflux disease without esophagitis; N42.9 Disorder of prostate, unspecified; G89.29 Other chronic pain; Z87.891 Personal history of nicotine dependence; Z79.82 Long term (current) use of aspirin; Z79.51 Long term (current) use of inhaled steroids; Z79.84 Long term (current) use of oral hypoglycemic drugs; Z79.899 Other long term (current) drug therapy; Z88.0 Allergy status to penicillin; Z88.1 Allergy status to other antibiotic agents; Z88.2 Allergy status to sulfonamides; Z88.6 Allergy status to analgesic agent; Z88.8 Allergy status to other drugs, medicaments and biological substances; Z86.79 Personal history of other diseases of the circulatory system
CPT/HCPCS: 99283

== ENCOUNTER 2017-02-24 21:00 | Emergency (ER) | payer MEDICARE ==
[2017-02-24] MEDS ORDERED: PROPARACAINE 0.5% OPHTH DROPS 15 ML BTL BOTH EYES STA (21:49)
--- NOTE | 2017-02-24 21:59 | ED ---
General Adult HPI - General Chief complaint: Skin/Abscess/Foreign Body Stated complaint: rash Time Seen by Provider: 02/24/17 21:24 Source: patient, RN notes reviewed, old records reviewed Mode of arrival: ambulatory Limitations: no limitations - History of Present Illness Initial comments: Is a 59-year-old male presenting to emergency Department chief complaint of a rash over his leg. Patient was concerned that he noticed ago the arms. He is mainly concerned that he's got some pain and irritation and his eye. Patient states that he has no changes in vision. . Also reports that his tongue feels like it somewhat swelling. Patient denies any fever or chills. 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 - Related Data Home Medications Medication Instructions Recorded Confirmed Temazepam [Restoril] 30 mg PO HS 03/05/15 02/27/17 Citalopram Hydrobromide [CeleXA] 40 mg PO DAILY 02/05/16 02/27/17 Morphine Sulfate Ir [MSIR] 15 mg PO BID PRN 02/05/16 02/27/17 Fluticasone Nasal [place] [Flonase 2 spray EA NOSTRIL BID 05/30/16 02/27/17 Nasal [place]] Levocetirizine Dihydrochloride 5 mg PO HS 07/13/16 02/27/17 [Xyzal] Tamsulosin [Flomax] 0.4 mg PO HS 07/13/16 02/27/17 ALPRAZolam [Xanax] 0.25 mg PO DAILY PRN 07/15/16 02/27/17 Hyoscyamine Sulfate [Levsin-Sl] 0.125 mg SL AC-TID PRN 08/04/16 02/27/17 Capsaicin Cream [Trixaicin Cream] 1 applic TOPICAL Q12H PRN 11/27/16 02/27/17 metFORMIN HCL [Glucophage Xr] 500 mg PO AC-BRKFST 11/27/16 02/27/17 Aspirin EC [Ecotrin Low Dose] 81 mg PO DAILY 12/22/16 02/27/17 Lisinopril [Prinivil] 5 mg PO DAILY 12/22/16 02/27/17 Omeprazole 40 mg PO BID 12/22/16 02/27/17 Artificial Tears-Hypromellose 1 drops BOTH EYES TID PRN 02/27/17 02/27/17 [Artificial Tear Drops] Lidocaine 5% Oint [Xylocaine 5% 1 applic TOPICAL TID PRN 02/27/17 02/27/17 Oint] Potassium Citrate [Urocit-K] 10 meq PO PC-TID 02/27/17 02/27/17 predniSONE See Taper PO DAILY 02/27/17 02/27/17 Previous Rx's Medication Instructions Recorded hydrOXYzine HCL [Atarax] 10 mg PO TID #15 tab 02/24/17 Allergies Allergy/AdvReac Type Severity Reaction Status Date / Time cephalexin monohydrate Allergy Rash/Hives Verified 02/27/17 17:54 [From Keflex] clarithromycin [From Biaxin] Allergy Unknown Verified 02/27/17 17:54 gentamicin [Gentamicin] Allergy Unknown Verified 02/27/17 17:54 naproxen Allergy Unknown Verified 02/27/17 17:54 Penicillins Allergy Anaphylaxis Verified 02/27/17 17:54 Sulfa (Sulfonamide Allergy Rash/Hives Verified 02/27/17 17:54 Antibiotics) promethazine AdvReac Nausea & Verified 02/27/17 17:54 Vomiting Review of Systems ROS Statement: Those systems with pertinent positive or pertinent negative responses have been documented in the HPI. ROS Other: All systems not noted in ROS Statement are negative. Past Medical History Past Medical History: Chest Pain / Angina, Diabetes Mellitus, GERD/Reflux, Hypertension, Prostate Disorder Additional Past Medical History / Comment(s): migraines, diverticulosis, kidney stones, neurpathy hands & feet, low BACK PAIN-sees Dr. Jackson, History of Any Multi-Drug Resistant Organisms: None Reported Past Surgical History: Cholecystectomy, Heart Catheterization, Hernia Repair, Orthopedic Surgery Additional Past Surgical History / Comment(s): EGD , Laparoscopic Mireya Fundoplasty, lap uma, CYSTOSCOPY AND LITHITRIPSY LT URETERAL STENT-SINCE REMOVED. RIGHT BREAST BIOPSY, TOTAL LT KNEE ; LT FOOT , LARA INGUINAL HERNIA, PERCUTANEOUS NEPHROLITHOTOMY. BILATERAL hand surgery. , back procedure for nerve endings and [facility], colonoscopy.ESOPHGEAL DILATION Past Anesthesia/Blood Transfusion Reactions: Motion Sickness Additional Past Anesthesia/Blood Transfusion Reaction / Comment(s): NEVER HAD ANY BLOOD TRANSFUSIONS Past Psychological History: Anxiety, Panic Disorder Additional Psychological History / Comment(s): . Smoking Status: Former smoker Past Alcohol Use History: None Reported Additional Past Alcohol Use History / Comment(s): STARTED SMOKING AT AGE 12, SMOKED 1 PPD, QUIT 2012 Past Drug Use History: None Reported - Past Family History Father Family Medical History: Cancer Mother Family Medical History: Liver Disease Additional Family Medical History / Comment(s): Mother had hepatitis. General Exam Limitations: no limitations General appearance: alert, in no apparent distress Head exam: Present: atraumatic, normocephalic, normal inspection Eye exam: Present: normal appearance, PERRL, EOMI. Absent: scleral icterus, conjunctival injection, periorbital swelling ENT exam: Present: normal exam, mucous membranes moist Neck exam: Present: normal inspection. Absent: tenderness, meningismus, lymphadenopathy Respiratory exam: Present: normal lung sounds bilaterally. Absent: respiratory distress, wheezes, rales, rhonchi, stridor Cardiovascular Exam: Present: regular rate, normal rhythm, normal heart sounds. Absent: systolic murmur, diastolic murmur, rubs, gallop, clicks GI/Abdominal exam: Present: soft, normal bowel sounds. Absent: distended, tenderness, guarding, rebound, rigid Extremities exam: Present: normal inspection, full ROM, normal capillary refill. Absent: tenderness, pedal edema, joint swelling, calf tenderness Back exam: Present: normal inspection Neurological exam: Present: alert Psychiatric exam: Present: normal affect, normal mood Skin exam: Present: warm, dry, intact, normal color, rash (erythematous pinprick rash over leg, and forearm. ) Course Vital Signs 02/24/17 02/24/17 21:15 22:35 Temperature 99.4 F 99.1 F Pulse Rate 79 69 Respiratory 18 20 Rate Blood Pressure 152/68 148/56 O2 Sat by Pulse 95 99 Oximetry Medical Decision Making - Medical Decision Making Is a 59-year-old male presenting to emergency Department chief complaint of a rash over his leg. Patient was concerned that he noticed ago the arms. He is mainly concerned that he's got some pain and irritation and his eye. Patient states that he has no changes in vision. . Also reports that his tongue feels like it somewhat swelling. Patient denies any fever or chills. 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 PAtient has pin prick erythematous rash over bilateral calf and forearm , likely a localized reaction to something in his garden. Flourescein eye exam preformed, no evidence of increased uptake. Discussed case with Dr. Naylor. He sugesst using atarax and steriod course for the rash, Discussed follow up with PCP and dermatology. Patient continues to request pain medication for his rash, discussed using motrin and tylenol is suggested. Disposition Clinical Impression: Rash Disposition: HOME SELF-CARE Condition: Good Instructions: Acute Rash (ED) Additional Instructions: Follow-up with primary care provider stripe matcher next 2-3 days. Return to emergency department if any alarming signs or symptoms occur. Prescriptions: hydrOXYzine HCL [Atarax] 10 mg PO TID #15 tab Referrals: Vinny Pascal DO [Primary Care Provider] - 1-2 days Helena London MD [STAFF PHYSICIAN] - 1-2 days Time of Disposition: 22:09
[2017-02-24] MEDS ORDERED: hydrOXYzine HCL 25 MG TAB PO STA (22:16)
[2017-02-24 22:36] VITALS: BP 148/56; PULSE 69; RESP 20; TEMP 99.1
== END 2017-02-24 22:35 | disposition home or self-care (01) ==
LOC: EC 21:00
DX: R21 Rash and other nonspecific skin eruption (principal); H57.10 Ocular pain, unspecified eye; K14.9 Disease of tongue, unspecified; K21.9 Gastro-esophageal reflux disease without esophagitis; I10 Essential (primary) hypertension; F41.9 Anxiety disorder, unspecified; F41.0 Panic disorder [episodic paroxysmal anxiety]; N42.9 Disorder of prostate, unspecified; E11.40 Type 2 diabetes mellitus with diabetic neuropathy, unspecified; Z87.891 Personal history of nicotine dependence; Z79.82 Long term (current) use of aspirin; Z79.84 Long term (current) use of oral hypoglycemic drugs; Z79.899 Other long term (current) drug therapy; Z79.51 Long term (current) use of inhaled steroids; Z88.1 Allergy status to other antibiotic agents; Z88.0 Allergy status to penicillin; Z88.2 Allergy status to sulfonamides; Z88.6 Allergy status to analgesic agent; Z88.8 Allergy status to other drugs, medicaments and biological substances
CPT/HCPCS: 99283

== ENCOUNTER → 2017-02-26 | Outpatient (CLI) | payer MEDICARE ==
[2017-02-26 14:21] LABS: ALT 31 U/L (21-72); AST 22 U/L (17-59); Alkaline Phosphatase 338 U/L (38-126); Anion Gap 10 mmol/L; Blood Urea Nitrogen 21 mg/dL (9-20); C Reactive Protein 5.4 mg/L (<10.0); Calcium 9.9 mg/dL (8.4-10.2); Carbon Dioxide 26 mmol/L (22-30); Chloride 104 mmol/L (98-107); Glucose 144 mg/dL (74-99); Non-African American GFR(MDRD) >60 (>60 ml/min/1.73 sqM); Potassium 4.6 mmol/L (3.5-5.1); Sodium 140 mmol/L (137-145); Total Bilirubin 0.8 mg/dL (0.2-1.3); Total Protein 6.8 g/dL (6.3-8.2)
[2017-02-26 15:01] LABS: Anisocytosis Moderate; Basophils # (A) 0.1 k/uL (0-0.2); Basophils % (A) 1 %; CH 31.4; CHCM 32.2; Eosinophils % (A) 0 %; HCT 38.1 % (39.0-53.0); HDW 3.64; HGB 12.4 gm/dL (13.0-17.5); Hypochromasia Slight; Luc # (Auto) 0.13; Luc % (Auto) 1; Lymphocytes # (A) 1.2 k/uL (1.0-4.8); Lymphocytes % (A) 13 %; MCH 31.6 pg (25.0-35.0); MCHC 32.6 g/dL (31.0-37.0); MCV 97.1 fL (80.0-100.0); Macrocytosis Slight; Mean Platelet Volume 8.5; Monocytes # (A) 0.3 k/uL (0-1.0); Monocytes % (A) 4 %; Neutrophils # (A) 7.7 k/uL (1.3-7.7); Neutrophils % (A) 81 %; Poikilocytosis Slight; RBC 3.92 m/uL (4.30-5.90); RDW 21.3 % (11.5-15.5); WBC 9.4 k/uL (3.8-10.6); WBC (Perox) 9.66
== END ==
LOC: LABWHC1 13:37
PROVIDERS: ATTEND Dermatology MOHS-Micrographic Surgery
DX: L95.8 Other vasculitis limited to the skin (principal); D69.0 Allergic purpura
CPT/HCPCS: 36415; 80053; 85025; 86140

== ENCOUNTER 2017-02-27 17:21 | Emergency (ER) | payer MEDICARE ==
[2017-02-27 17:39] VITALS: BP 147/83; PULSE 78; RESP 18; TEMP 98.3
--- NOTE | 2017-02-27 18:14 | ED ---
Skin/Abscess/FB HPI - General Chief complaint: Skin/Abscess/Foreign Body Stated complaint: rash Time Seen by Provider: 02/27/17 18:02 Source: patient, RN notes reviewed Mode of arrival: ambulatory Limitations: no limitations - History of Present Illness Initial comments: 67-year-old male presents emergency Department with chief complaint rash pain. Patient's had this ongoing rash and has been seen multiple times by multiple providers. Patient has seen dermatologists for this rash and had a biopsy performed and they believe he may HSP. Patient states that she saw him today and told him that his morphine was not helping him and that he needed stronger pain meds. They advise him go to the emergency room for stronger pain meds. Patient takes morphine daily. Patient denies any trauma. Patient states that Dr. Pascal office would not write him anything stronger negative come here for stronger pain meds. - Related Data Home Medications Medication Instructions Recorded Confirmed Temazepam [Restoril] 30 mg PO HS 03/05/15 02/27/17 Citalopram Hydrobromide [CeleXA] 40 mg PO DAILY 02/05/16 02/27/17 Morphine Sulfate Ir [MSIR] 15 mg PO BID PRN 02/05/16 02/27/17 Fluticasone Nasal [place] [Flonase 2 spray EA NOSTRIL BID 05/30/16 02/27/17 Nasal [place]] Levocetirizine Dihydrochloride 5 mg PO HS 07/13/16 02/27/17 [Xyzal] Tamsulosin [Flomax] 0.4 mg PO HS 07/13/16 02/27/17 ALPRAZolam [Xanax] 0.25 mg PO DAILY PRN 07/15/16 02/27/17 Hyoscyamine Sulfate [Levsin-Sl] 0.125 mg SL AC-TID PRN 08/04/16 02/27/17 Capsaicin Cream [Trixaicin Cream] 1 applic TOPICAL Q12H PRN 11/27/16 02/27/17 metFORMIN HCL [Glucophage Xr] 500 mg PO AC-BRKFST 11/27/16 02/27/17 Aspirin EC [Ecotrin Low Dose] 81 mg PO DAILY 12/22/16 02/27/17 Lisinopril [Prinivil] 5 mg PO DAILY 12/22/16 02/27/17 Omeprazole 40 mg PO BID 12/22/16 02/27/17 Artificial Tears-Hypromellose 1 drops BOTH EYES TID PRN 02/27/17 02/27/17 [Artificial Tear Drops] Lidocaine 5% Oint [Xylocaine 5% 1 applic TOPICAL TID PRN 02/27/17 02/27/17 Oint] Potassium Citrate [Urocit-K] 10 meq PO PC-TID 02/27/17 02/27/17 predniSONE See Taper PO DAILY 02/27/17 02/27/17 Previous Rx's Medication Instructions Recorded hydrOXYzine HCL [Atarax] 10 mg PO TID #15 tab 02/24/17 Allergies Allergy/AdvReac Type Severity Reaction Status Date / Time cephalexin monohydrate Allergy Rash/Hives Verified 02/27/17 17:54 [From Keflex] clarithromycin [From Biaxin] Allergy Unknown Verified 02/27/17 17:54 gentamicin [Gentamicin] Allergy Unknown Verified 02/27/17 17:54 naproxen Allergy Unknown Verified 02/27/17 17:54 Penicillins Allergy Anaphylaxis Verified 02/27/17 17:54 Sulfa (Sulfonamide Allergy Rash/Hives Verified 02/27/17 17:54 Antibiotics) promethazine AdvReac Nausea & Verified 02/27/17 17:54 Vomiting Review of Systems ROS Statement: Those systems with pertinent positive or pertinent negative responses have been documented in the HPI. ROS Other: All systems not noted in ROS Statement are negative. Past Medical History Past Medical History: Chest Pain / Angina, Diabetes Mellitus, GERD/Reflux, Hypertension, Prostate Disorder Additional Past Medical History / Comment(s): migraines, diverticulosis, kidney stones, neurpathy hands & feet, low BACK PAIN-sees Dr. Jackson, History of Any Multi-Drug Resistant Organisms: None Reported Past Surgical History: Cholecystectomy, Heart Catheterization, Hernia Repair, Orthopedic Surgery Additional Past Surgical History / Comment(s): EGD , Laparoscopic Mireya Fundoplasty, lap uma, CYSTOSCOPY AND LITHITRIPSY LT URETERAL STENT-SINCE REMOVED. RIGHT BREAST BIOPSY, TOTAL LT KNEE ; LT FOOT , LARA INGUINAL HERNIA, PERCUTANEOUS NEPHROLITHOTOMY. BILATERAL hand surgery. , back procedure for nerve endings and [facility], colonoscopy.ESOPHGEAL DILATION Past Anesthesia/Blood Transfusion Reactions: Motion Sickness Additional Past Anesthesia/Blood Transfusion Reaction / Comment(s): NEVER HAD ANY BLOOD TRANSFUSIONS Past Psychological History: Anxiety, Panic Disorder Additional Psychological History / Comment(s): . Smoking Status: Former smoker Past Alcohol Use History: None Reported Additional Past Alcohol Use History / Comment(s): STARTED SMOKING AT AGE 12, SMOKED 1 PPD, QUIT 2012 Past Drug Use History: None Reported - Past Family History Father Family Medical History: Cancer Mother Family Medical History: Liver Disease Additional Family Medical History / Comment(s): Mother had hepatitis. General Exam Limitations: no limitations General appearance: alert, in no apparent distress Head exam: Present: atraumatic, normocephalic, normal inspection Respiratory exam: Present: normal lung sounds bilaterally. Absent: respiratory distress, wheezes, rales, rhonchi, stridor Cardiovascular Exam: Present: regular rate, normal rhythm, normal heart sounds. Absent: systolic murmur, diastolic murmur, rubs, gallop, clicks Skin exam: Present: warm, dry, intact, normal color, rash (Macular rash varying in size noted on primarily lower extremities no open lesions or sores there are sutures noted in place on lower extremity) Course Vital Signs 02/27/17 17:33 Temperature 98.3 F Pulse Rate 78 Respiratory 18 Rate Blood Pressure 147/83 O2 Sat by Pulse 98 Oximetry Medical Decision Making - Medical Decision Making 67-year-old male presented for rash, pain related to the rash. Patient has seen dermatologists and they believe this is more vasculitis in nature. Patient is taking chronic narcotic pain medication. I did offer the patient anti-inflammatories but he states that he needs stronger pain meds. I did advise him that is not necessary for his rash at this time. Patient became angry and states that he will go buy drugs off the street. Disposition Clinical Impression: Rash, Chronic pain Disposition: HOME SELF-CARE Condition: Stable Instructions: Acute Rash (ED) Additional Instructions: Please return to the Emergency Department if symptoms worsen or any other concerns. Referrals: Vinny Pascal DO [Primary Care Provider] - 1-2 days Time of Disposition: 18:13
== END 2017-02-27 18:14 | disposition home or self-care (01) ==
LOC: EC 17:21
DX: R21 Rash and other nonspecific skin eruption (principal); G89.29 Other chronic pain; E11.9 Type 2 diabetes mellitus without complications; F41.9 Anxiety disorder, unspecified; Z85.46 Personal history of malignant neoplasm of prostate; Z87.891 Personal history of nicotine dependence; Z79.51 Long term (current) use of inhaled steroids; Z79.82 Long term (current) use of aspirin; Z79.84 Long term (current) use of oral hypoglycemic drugs; Z79.899 Other long term (current) drug therapy; Z88.0 Allergy status to penicillin; Z88.1 Allergy status to other antibiotic agents; Z88.2 Allergy status to sulfonamides; Z88.6 Allergy status to analgesic agent; Z88.8 Allergy status to other drugs, medicaments and biological substances
CPT/HCPCS: 99282 ×2; 82565; 70553; A9577

== ENCOUNTER → 2017-02-27 | Outpatient (CLI) | payer MEDICARE ==
[2017-02-27 15:39] LABS: Non-African American GFR(MDRD) >60 (>60 ml/min/1.73 sqM)
--- NOTE | 2017-02-27 23:11 | MR ---
EXAMINATION TYPE: MR brain wo/w con DATE OF EXAM: 02/27/2017 COMPARISON: NONE HISTORY: NEW DAILY PERSISTENT [place] CONTRAST: Standard multiplanar, multisequence MRI departmental protocol utilizing 15 mL intravenous MultiHance gadolinium contrast. FINDINGS: There is cerebral cortical atrophy. There is no mass effect nor midline shift. There is no sign of intracranial hemorrhage. There is a linear 15 x 5 mm area of increased signal on the FLAIR im ages in the anterior left internal capsule. There are scattered foci at the osuna-white matter junctio n of both cerebral hemispheres that measure up to 7 mm on the FLAIR images. This is more noticeable i n the parietal lobes. There is thinning of the corpus callosum. The brainstem is intact. The sella tu rcica is normal. There is no evidence of pathologic enhancement. IMPRESSION: Diffuse white matter signal changes are nonspecific. Consider small vessel ischemia and demyelinating disease. No evidence of acute cortical infarct.
== END | disposition home or self-care (01) ==
LOC: RADMRIMAIN 14:56
PROVIDERS: ATTEND Dentist Oral and Maxillofacial Surgery
DX: G44.52 New daily persistent headache (NDPH) (principal)
CPT/HCPCS: 82565; 70553; A9577

== ENCOUNTER → 2017-03-16 | Outpatient (CLI) | payer MEDICARE | END | disposition home or self-care (01) | LOC: LABWHC1 12:16 | PROVIDERS: ATTEND Internal Medicine Endocrinology, Diabetes & Metabolism | DX: E05.90 Thyrotoxicosis, unspecified without thyrotoxic crisis or storm (principal) | CPT/HCPCS: 36415; 84439; 84443; 84480 ==

== ENCOUNTER → 2017-03-19 | Outpatient (CLI) | payer MEDICARE ==
[2017-03-19 11:37] LABS: Anion Gap 9 mmol/L; Blood Urea Nitrogen 27 mg/dL (9-20); Calcium 9.6 mg/dL (8.4-10.2); Carbon Dioxide 29 mmol/L (22-30); Chloride 100 mmol/L (98-107); Glucose 142 mg/dL (74-99); Non-African American GFR(MDRD) >60 (>60 ml/min/1.73 sqM); Sodium 138 mmol/L (137-145)
[2017-03-19 12:14] LABS: Anisocytosis Moderate; CH 31.6; CHCM 31.7; HCT 39.5 % (39.0-53.0); HDW 3.18; HGB 12.9 gm/dL (13.0-17.5); Hypochromasia Slight; MCH 32.6 pg (25.0-35.0); MCHC 32.7 g/dL (31.0-37.0); MCV 99.8 fL (80.0-100.0); Macrocytosis Moderate; Mean Platelet Volume 8.6; RBC 3.96 m/uL (4.30-5.90); RDW 22.1 % (11.5-15.5); WBC 19.5 k/uL (3.8-10.6); WBC (Perox) 19.91
[2017-03-19 14:58] LABS: Add Differential Manual Differential
[2017-03-19 15:01] LABS: Myelocytes % 0.5 %; Nucleated Red Blood Cells 0 /100 WBC (0-0); Total Cells Counted 200
[2017-03-19 15:02] LABS: Ovalocytes Present; Polychromasia Present
== END | disposition home or self-care (01) ==
LOC: LABWHC1 10:17
PROVIDERS: ATTEND Urology
DX: N20.0 Calculus of kidney (principal)
CPT/HCPCS: 36415; 80048; 85025; 87086

== ENCOUNTER 2017-03-20 16:46 | Emergency (ER) | payer MEDICARE ==
[2017-03-20 16:54] VITALS: TEMP 97.8
[2017-03-20] MEDS ORDERED: DIAZEPAM 5 MG/ML 2 ML SYRINGE IVP STA (17:30)
[2017-03-20] MEDS ORDERED: SODIUM CHLORIDE 0.9% 1,000 ML IV ONE (17:30)
--- NOTE | 2017-03-20 17:59 | ED ---
Extremity Problem HPI - General Chief complaint: Extremity Problem,Nontraumatic Stated complaint: tingling in fingers, hand cramping Time Seen by Provider: 03/20/17 17:11 Source: patient, RN notes reviewed Mode of arrival: ambulatory Limitations: no limitations - History of Present Illness Initial comments: 67-year-old male presents emergency Department chief complaint hand cramping bilateral times one hour. Patient states that he was driving home from the drain states it started vehicle. Patient states she has some shooting pain down both of his arms and states that his hand started to contract. Patient states his partner opened up his hands and he states his symptoms seemed to dissipate the lab come and gone a few times. Patient denies any new medications. Patient states never had any like this in the past. Patient states it feels like electricity shooting to his hands. Patient denies any chest pain, shortness breath, fever, chills, headache, dizziness or focal weakness. Patient denies any new medications. The patient states that he has been drinking fluids - Related Data Home Medications Medication Instructions Recorded Confirmed Temazepam [Restoril] 30 mg PO HS 03/05/15 03/20/17 Citalopram Hydrobromide [CeleXA] 40 mg PO DAILY 02/05/16 03/20/17 Morphine Sulfate Ir [MSIR] 15 mg PO BID PRN 02/05/16 03/20/17 Fluticasone Nasal [place] [Flonase 2 spray EA NOSTRIL BID 05/30/16 03/20/17 Nasal [place]] Levocetirizine Dihydrochloride 5 mg PO HS 07/13/16 03/20/17 [Xyzal] Tamsulosin [Flomax] 0.4 mg PO HS 07/13/16 03/20/17 ALPRAZolam [Xanax] 0.25 mg PO DAILY PRN 07/15/16 03/20/17 Hyoscyamine Sulfate [Levsin-Sl] 0.125 mg SL AC-TID PRN 08/04/16 03/20/17 Capsaicin Cream [Trixaicin Cream] 1 applic TOPICAL Q12H PRN 11/27/16 03/20/17 metFORMIN HCL [Glucophage Xr] 500 mg PO AC-BRKFST 11/27/16 03/20/17 Aspirin EC [Ecotrin Low Dose] 81 mg PO DAILY 12/22/16 03/20/17 Lisinopril [Prinivil] 5 mg PO DAILY 12/22/16 03/20/17 Omeprazole 40 mg PO BID 12/22/16 03/20/17 Artificial Tears-Hypromellose 1 drops BOTH EYES TID PRN 02/27/17 03/20/17 [Artificial Tear Drops] Lidocaine 5% Oint [Xylocaine 5% 1 applic TOPICAL TID PRN 02/27/17 03/20/17 Oint] Potassium Citrate [Urocit-K] 10 meq PO PC-TID 02/27/17 03/20/17 predniSONE See Taper PO DAILY 02/27/17 03/20/17 Previous Rx's Medication Instructions Recorded hydrOXYzine HCL [Atarax] 10 mg PO TID #15 tab 02/24/17 Allergies Allergy/AdvReac Type Severity Reaction Status Date / Time cephalexin monohydrate Allergy Rash/Hives Verified 03/20/17 17:47 [From Keflex] clarithromycin [From Biaxin] Allergy Unknown Verified 03/20/17 17:47 gentamicin [Gentamicin] Allergy Unknown Verified 03/20/17 17:47 naproxen Allergy Unknown Verified 03/20/17 17:47 Penicillins Allergy Anaphylaxis Verified 03/20/17 17:47 Sulfa (Sulfonamide Allergy Rash/Hives Verified 03/20/17 17:47 Antibiotics) promethazine AdvReac Nausea & Verified 03/20/17 17:47 Vomiting Review of Systems ROS Statement: Those systems with pertinent positive or pertinent negative responses have been documented in the HPI. ROS Other: All systems not noted in ROS Statement are negative. Past Medical History Past Medical History: Chest Pain / Angina, Diabetes Mellitus, GERD/Reflux, Hypertension, Prostate Disorder Additional Past Medical History / Comment(s): migraines, diverticulosis, kidney stones, neurpathy hands & feet, low BACK PAIN-sees Dr. Jackson, History of Any Multi-Drug Resistant Organisms: None Reported Past Surgical History: Cholecystectomy, Heart Catheterization, Hernia Repair, Orthopedic Surgery Additional Past Surgical History / Comment(s): EGD , Laparoscopic Mireya Fundoplasty, lap uma, CYSTOSCOPY AND LITHITRIPSY LT URETERAL STENT-SINCE REMOVED. RIGHT BREAST BIOPSY, TOTAL LT KNEE ; LT FOOT , LARA INGUINAL HERNIA, PERCUTANEOUS NEPHROLITHOTOMY. BILATERAL hand surgery. , back procedure for nerve endings and [facility], colonoscopy.ESOPHGEAL DILATION Past Anesthesia/Blood Transfusion Reactions: Motion Sickness Additional Past Anesthesia/Blood Transfusion Reaction / Comment(s): NEVER HAD ANY BLOOD TRANSFUSIONS Past Psychological History: Anxiety, Panic Disorder Smoking Status: Former smoker Past Alcohol Use History: None Reported Past Drug Use History: None Reported - Past Family History Father Family Medical History: Cancer Mother Family Medical History: Liver Disease Additional Family Medical History / Comment(s): Mother had hepatitis. General Exam Limitations: no limitations General appearance: alert, in no apparent distress ENT exam: Present: normal exam, normal oropharynx, mucous membranes moist Neck exam: Present: normal inspection, full ROM. Absent: tenderness, meningismus, lymphadenopathy Respiratory exam: Present: normal lung sounds bilaterally. Absent: respiratory distress, wheezes, rales, rhonchi, stridor Cardiovascular Exam: Present: regular rate, normal rhythm, normal heart sounds. Absent: systolic murmur, diastolic murmur, rubs, gallop, clicks Extremities exam: Present: other (bilateral upper extremities full range of motion full-strength equal bilaterally with renal pulses equal +2, there is no rashes no apparent deformities) Neurological exam: Present: alert, oriented X3, CN II-XII intact, reflexes normal. Absent: motor sensory deficit Skin exam: Present: warm, dry, intact, normal color. Absent: rash Course Vital Signs 03/20/17 16:52 Temperature 97.8 F Pulse Rate 84 Respiratory 20 Rate Blood Pressure 127/59 O2 Sat by Pulse 98 Oximetry Medical Decision Making - Medical Decision Making 67-year-old male present emergency for an spasms. Patient's lab work does show hyperglycemia. Patient was given lunch here. Patient continues to request pain medication that he takes chronic pain meds at home. I did inform that he will not receive IV narcotic pain medication for his chronic issues. Patient is upset at this time. Patient will be discharged. Patient's symptoms are related to a carpalpedal spasms. Patient does have a history anxiety. Patient symptoms have not return here in emergency department. Patient will be discharged with follow-up. - Lab Data Result diagrams: 03/20/17 17:45 03/20/17 17:45 Lab Results 03/20/17 03/20/17 Range/Units 17:45 17:45 WBC 14.9 H (3.8-10.6) k/uL RBC 4.01 L (4.30-5.90) m/uL Hgb 13.3 (13.0-17.5) gm/dL Hct 39.5 (39.0-53.0) % MCV 98.6 (80.0-100.0) fL MCH 33.2 (25.0-35.0) pg MCHC 33.6 (31.0-37.0) g/dL RDW 21.7 H (11.5-15.5) % Plt Count 262 (150-450) k/uL Sodium 142 (137-145) mmol/L Potassium 4.9 (3.5-5.1) mmol/L Chloride 108 H (98-107) mmol/L Carbon Dioxide 21 L (22-30) mmol/L Anion Gap 13 mmol/L BUN 27 H (9-20) mg/dL Creatinine 0.96 (0.66-1.25) mg/dL Est GFR (MDRD) Af Amer >60 (>60 ml/min/1.73 sqM) Est GFR (MDRD) Non-Af >60 (>60 ml/min/1.73 sqM) Glucose 355 H (74-99) mg/dL Calcium 9.2 (8.4-10.2) mg/dL Magnesium 2.2 (1.6-2.3) mg/dL Total Bilirubin 0.6 (0.2-1.3) mg/dL AST 20 (17-59) U/L ALT 31 (21-72) U/L Alkaline Phosphatase 631 H (38-126) U/L Total Protein 6.5 (6.3-8.2) g/dL Albumin 4.2 (3.5-5.0) g/dL Disposition Clinical Impression: [place] spasm Disposition: HOME SELF-CARE Condition: Stable Instructions: Muscle Spasm (ED) Additional Instructions: Please return to the Emergency Department if symptoms worsen or any other concerns. Referrals: Vinny Pascal DO [Primary Care Provider] - 1-2 days Time of Disposition: 19:00
[2017-03-20 18:24] LABS: ALT 31 U/L (21-72); AST 20 U/L (17-59); Alkaline Phosphatase 631 U/L (38-126); Anion Gap 13 mmol/L; Blood Urea Nitrogen 27 mg/dL (9-20); Calcium 9.2 mg/dL (8.4-10.2); Carbon Dioxide 21 mmol/L (22-30); Chloride 108 mmol/L (98-107); Glucose 355 mg/dL (74-99); Magnesium 2.2 mg/dL (1.6-2.3); Non-African American GFR(MDRD) >60 (>60 ml/min/1.73 sqM); Potassium 4.9 mmol/L (3.5-5.1); Sodium 142 mmol/L (137-145); Total Bilirubin 0.6 mg/dL (0.2-1.3); Total Protein 6.5 g/dL (6.3-8.2)
[2017-03-20] MEDS ORDERED: INSULIN LISPRO (humaLOG) 300 UNIT/3 ML VIAL SQ ONE (18:41)
[2017-03-20 18:46] LABS: Anisocytosis Moderate; Basophils # (A) 0.1 k/uL (0-0.2); Basophils % (A) 1 %; CH 30.9; CHCM 31.4; Eosinophils % (A) 0 %; HCT 39.5 % (39.0-53.0); HDW 3.24; HGB 13.3 gm/dL (13.0-17.5); Hypochromasia Moderate; Luc # (Auto) 0.15; Luc % (Auto) 1; Lymphocytes # (A) 1.1 k/uL (1.0-4.8); Lymphocytes % (A) 7 %; MCH 33.2 pg (25.0-35.0); MCHC 33.6 g/dL (31.0-37.0); MCV 98.6 fL (80.0-100.0); Macrocytosis Moderate; Mean Platelet Volume 8.7; Monocytes # (A) 0.7 k/uL (0-1.0); Monocytes % (A) 5 %; Neutrophils # (A) 12.9 k/uL (1.3-7.7); Neutrophils % (A) 86 %; RBC 4.01 m/uL (4.30-5.90); RDW 21.7 % (11.5-15.5); WBC 14.9 k/uL (3.8-10.6); WBC (Perox) 15.01
[2017-03-20] MEDS ORDERED: HYDROcodone/APAP 5-325MG 1 EACH TAB PO STA (18:55)
[2017-03-20 19:06] LABS: Ovalocytes Present; Polychromasia Present
[2017-03-20 19:19] VITALS: BP 136/71; PULSE 72; RESP 18
== END 2017-03-20 19:19 | disposition home or self-care (01) ==
LOC: EC 16:46
DX: E11.65 Type 2 diabetes mellitus with hyperglycemia (principal); R29.0 Tetany; M79.601 Pain in right arm; M79.602 Pain in left arm; I10 Essential (primary) hypertension; K21.9 Gastro-esophageal reflux disease without esophagitis; N42.9 Disorder of prostate, unspecified; Z87.891 Personal history of nicotine dependence; Z79.51 Long term (current) use of inhaled steroids; Z79.52 Long term (current) use of systemic steroids; Z79.82 Long term (current) use of aspirin; Z79.84 Long term (current) use of oral hypoglycemic drugs; Z79.899 Other long term (current) drug therapy; Z88.0 Allergy status to penicillin; Z88.1 Allergy status to other antibiotic agents; Z88.2 Allergy status to sulfonamides; Z88.6 Allergy status to analgesic agent; Z88.8 Allergy status to other drugs, medicaments and biological substances; Z87.39 Personal history of other diseases of the musculoskeletal system and connective tissue; Z98.890 Other specified postprocedural states
CPT/HCPCS: 99284; 96374; 96361; 36415; 80053; 83735; 85025; J3360

== ENCOUNTER → 2017-04-02 | Outpatient (CLI) | payer MEDICARE ==
--- NOTE | 2017-04-02 11:14 | CT ---
EXAMINATION TYPE: CT abdomen pelvis wo con DATE OF EXAM: 04/02/2017 HISTORY: Lt flank pain CT DLP: 988 mGycm. Automated Exposure Control for Dose Reduction was Utilized. TECHNIQUE: CT scan of the abdomen and pelvis is performed without oral or IV contrast. COMPARISON: CT abdomen pelvis December 21, 2016 FINDINGS: Within the limitations of a non-contrast study, the following observations are made. LUNG BASES: Persistent linear scarring in both lung bases is present. LIVER/GB: Heterogeneous right hepatic lobe is redemonstrated. There is subcentimeter hypodense lesion hepatic dome anteriorly on axial image 8 too small to further characterize but stable and presumed b enign. Additional 1 cm hypodense lesion left hepatic lobe on axial image 17 is stable and presumed be nign. Gallbladder is not visualized and presumed surgically absent. Common bile duct measures up to 1 0 mm at don hepatis on coronal image 36 not significantly changed from prior study upper limits of normal after cholecystectomy. PANCREAS: No significant abnormality is seen. SPLEEN: No significant abnormality is seen. ADRENALS: No significant abnormality is seen. KIDNEYS: No right-sided renal calculi are identified. At level of prior dominant 6 millimeter calculu s lower pole level left kidney there is residual 3 mm calculus on axial image 70. Superior to this th ere are 2 additional calculi mid pole level measuring up to 3 mm in size on coronal image 51. There i s additional 2 mm calculus mid pole level posteriorly on coronal image 60. Number of calculi diminish ed from prior. There is however new areas of curvilinear hyperdensity towards the periphery mid to lo wer pole level likely reflecting areas of subcapsular hemorrhage related to treatment. Areas of corti daniela scarring are redemonstrated. There is persistent exophytic low dense 2.7 x 2.5 cm lesion from low er pole level left kidney with Hounsfield units averaging 30. This is unchanged in size from 2013 CT likely reflecting proteinaceous cyst. BOWEL: Small sliding-type hiatal hernia is redemonstrated. No suspicious small or large bowel dilata tion is seen. There are scattered colonic diverticula most pronounced in left and sigmoid colon. Ther e is no CT evidence for acute diverticulitis. GENITAL ORGANS: Heterogeneous enlarged prostate gland bulging on bladder base suggestive of BPH is re demonstrated. LYMPH NODES: No greater than 1cm abdominal or pelvic lymph nodes are appreciated. OSSEOUS STRUCTURES: Disc space narrowing and spurring and vacuum disc phenomenon lumbosacral junction is present. OTHER: Artifact from clips bilateral superior scrotal region likely reflect product of vasectomy proc edure. Moderate atherosclerotic calcification of aorta extending into pelvic branch vessels is presen t. IMPRESSION: Interval improvement in size of largest calculus lower pole level left kidney. Interval i mprovement in number of small left-sided renal calculi. No hydronephrosis or obstructing renal calcul i currently. Some perinephric hematoma is noted likely related to interval lithotripsy.
== END | disposition home or self-care (01) ==
LOC: RADCTMAIN 09:14
PROVIDERS: ATTEND Urology
DX: N20.0 Calculus of kidney (principal); N20.1 Calculus of ureter
CPT/HCPCS: 74176

== ENCOUNTER → 2017-04-11 | Outpatient (CLI) | payer MEDICARE ==
[2017-04-11 11:03] LABS: Anisocytosis Moderate; CH 31.4; CHCM 32.1; HCT 41.6 % (39.0-53.0); HDW 3.23; HGB 13.4 gm/dL (13.0-17.5); Hypochromasia Slight; MCH 31.4 pg (25.0-35.0); MCHC 32.2 g/dL (31.0-37.0); MCV 97.7 fL (80.0-100.0); Macrocytosis Slight; RBC 4.26 m/uL (4.30-5.90); RDW 21.3 % (11.5-15.5); WBC 9.9 k/uL (3.8-10.6)
[2017-04-11 11:29] LABS: Anion Gap 8 mmol/L; Blood Urea Nitrogen 19 mg/dL (9-20); Carbon Dioxide 27 mmol/L (22-30); Chloride 103 mmol/L (98-107); Non-African American GFR(MDRD) >60 (>60 ml/min/1.73 sqM); Potassium 5.1 mmol/L (3.5-5.1); Sodium 138 mmol/L (137-145)
== END | disposition home or self-care (01) ==
LOC: LABWHC1 10:28
PROVIDERS: ATTEND Internal Medicine Cardiovascular Disease
DX: R42 Dizziness and giddiness (principal)
CPT/HCPCS: 36415; 80051; 82565; 83880; 84520; 85027; 85379

== ENCOUNTER → 2017-05-01 | Outpatient (CLI) | payer MEDICARE ==
[2017-05-01 11:52] LABS: ALT 34 U/L (21-72); AST 21 U/L (17-59); Alkaline Phosphatase 343 U/L (38-126); Anion Gap 8 mmol/L; Blood Urea Nitrogen 19 mg/dL (9-20); Calcium 9.1 mg/dL (8.4-10.2); Carbon Dioxide 24 mmol/L (22-30); Chloride 109 mmol/L (98-107); Glucose 103 mg/dL (74-99); Non-African American GFR(MDRD) >60 (>60 ml/min/1.73 sqM); Potassium 4.4 mmol/L (3.5-5.1); Sodium 141 mmol/L (137-145); Total Bilirubin 0.9 mg/dL (0.2-1.3); Total Protein 6.4 g/dL (6.3-8.2)
== END ==
LOC: LABWHC1 10:45
PROVIDERS: ATTEND Internal Medicine Endocrinology, Diabetes & Metabolism
DX: E11.65 Type 2 diabetes mellitus with hyperglycemia (principal); E05.90 Thyrotoxicosis, unspecified without thyrotoxic crisis or storm; N20.0 Calculus of kidney
CPT/HCPCS: 36415; 80053; 83970; 84075; 84439; 84443

== ENCOUNTER 2017-05-02 10:34 | Emergency (ER) | payer MEDICARE ==
--- NOTE | 2017-05-02 11:35 | ED ---
General Adult HPI - General Source: patient, RN notes reviewed, old records reviewed Mode of arrival: ambulatory Limitations: no limitations <Diomedes Ruiz - Last Filed: 05/02/17 12:16> <Darshan Louise - Last Filed: 05/02/17 12:21> - General Chief complaint: Abdominal Pain Stated complaint: KIDNEY PROBLEM Time Seen by Provider: 05/02/17 10:50 - History of Present Illness Initial comments: Patient 67-year-old male who presents emergency room today with a chief complaint of left flank pain. Patient does admit that he has a history kidney stones. He states this pain feels the same. Patient does admit that he uses morphine at home but it is for his spinal stenosis and not his kidney stones. He states having increased pain today and called his urologist on a [facility] was advised coming here to the emergency room. Patient also states that he did see Dr. Hernandez in the office this morning who advised him come here. Patient states all symptoms are consistent with his kidney stones that is had in the past. He denies any other complaints associated symptoms. Patient denies any recent fever, chills, shortness of breath, chest pain, abdominal pain, nausea or vomiting, numbness or tingling, dysuria or hematuria, constipation or diarrhea, headaches or visual changes, or any other complaints. (Diomedes Ruiz) - Related Data Home Medications Medication Instructions Recorded Confirmed Temazepam [Restoril] 30 mg PO HS 03/05/15 05/02/17 Citalopram Hydrobromide [CeleXA] 40 mg PO DAILY 02/05/16 05/02/17 Morphine Sulfate Ir [MSIR] 15 mg PO BID PRN 02/05/16 05/02/17 Levocetirizine Dihydrochloride 5 mg PO HS 07/13/16 05/02/17 [Xyzal] Tamsulosin [Flomax] 0.4 mg PO HS 07/13/16 05/02/17 ALPRAZolam [Xanax] 0.25 mg PO DAILY PRN 07/15/16 05/02/17 Hyoscyamine Sulfate [Levsin-Sl] 0.125 mg SL AC-TID PRN 08/04/16 05/02/17 metFORMIN HCL [Glucophage Xr] 500 mg PO BID 11/27/16 05/02/17 Aspirin EC [Ecotrin Low Dose] 81 mg PO DAILY 12/22/16 05/02/17 Omeprazole 40 mg PO BID 12/22/16 05/02/17 Artificial Tears-Hypromellose 1 drops BOTH EYES TID PRN 02/27/17 05/02/17 [Artificial Tear Drops] Lisinopril [Zestril] 2.5 mg PO DAILY 05/02/17 05/02/17 Allergies Allergy/AdvReac Type Severity Reaction Status Date / Time cephalexin monohydrate Allergy Rash/Hives Verified 05/02/17 10:54 [From Keflex] clarithromycin [From Biaxin] Allergy Unknown Verified 05/02/17 10:54 gentamicin [Gentamicin] Allergy Unknown Verified 05/02/17 10:54 naproxen Allergy Unknown Verified 05/02/17 10:54 Penicillins Allergy Anaphylaxis Verified 05/02/17 10:54 Sulfa (Sulfonamide Allergy Rash/Hives Verified 05/02/17 10:54 Antibiotics) promethazine AdvReac Nausea & Verified 05/02/17 10:54 Vomiting Review of Systems ROS Other: All systems not noted in ROS Statement are negative. <Diomedes Ruiz - Last Filed: 05/02/17 12:16> ROS Other: All systems not noted in ROS Statement are negative. <Darshan Louise - Last Filed: 05/02/17 12:21> ROS Statement: Those systems with pertinent positive or pertinent negative responses have been documented in the HPI. Past Medical History Past Medical History: Chest Pain / Angina, Diabetes Mellitus, GERD/Reflux, Hypertension, Prostate Disorder Additional Past Medical History / Comment(s): migraines, diverticulosis, kidney stones, neurpathy hands & feet, low BACK PAIN-sees Dr. Jackson, History of Any Multi-Drug Resistant Organisms: None Reported Past Surgical History: Cholecystectomy, Heart Catheterization, Hernia Repair, Orthopedic Surgery Additional Past Surgical History / Comment(s): EGD , Laparoscopic Mireya Fundoplasty, lap uma, CYSTOSCOPY AND LITHITRIPSY LT URETERAL STENT-SINCE REMOVED. RIGHT BREAST BIOPSY, TOTAL LT KNEE ; LT FOOT , LARA INGUINAL HERNIA, PERCUTANEOUS NEPHROLITHOTOMY. BILATERAL hand surgery. , back procedure for nerve endings and [facility], colonoscopy.ESOPHGEAL DILATION Past Anesthesia/Blood Transfusion Reactions: Motion Sickness Additional Past Anesthesia/Blood Transfusion Reaction / Comment(s): NEVER HAD ANY BLOOD TRANSFUSIONS Past Psychological History: Anxiety, Panic Disorder Smoking Status: Former smoker Past Alcohol Use History: None Reported Past Drug Use History: None Reported - Past Family History Father Family Medical History: Cancer Mother Family Medical History: Liver Disease Additional Family Medical History / Comment(s): Mother had hepatitis. <Diomedes Ruiz - Last Filed: 05/02/17 12:16> General Exam Limitations: no limitations <Diomedes Ruiz - Last Filed: 05/02/17 12:16> <Darshan Louise - Last Filed: 05/02/17 12:21> - General Exam Comments Initial Comments: General: The patient is awake and alert, in no distress, and does not appear acutely ill. Eye: Pupils are equal, round and reactive to light, extra-ocular movements are intact. No nystagmus. There is normal conjunctiva bilaterally. No signs of icterus. Ears, nose, mouth and throat: There are moist mucous membranes and no oral lesions. Neck: The neck is supple, there is no tenderness or JVD. Cardiovascular: There is a regular rate and rhythm. No murmur, rub or gallop is appreciated. Respiratory: Lungs are clear to auscultation, respirations are non-labored, breath sounds are equal. No wheezes, stridor, rales, or rhonchi. Gastrointestinal: Soft, non-distended, non-tender abdomen without masses or organomegaly noted. There is no rebound or guarding present. No CVA tenderness. Bowel sounds are unremarkable. Musculoskeletal: Normal ROM, no tenderness. Strength 5/5. Sensation intact. Pulses equal bilaterally 2+. Neurological: A&O x 3. CN II-XII intact, There are no obvious motor or sensory deficits. Coordination appears grossly intact. Speech is normal. Skin: Skin is warm and dry and no rashes or lesions are noted. Psychiatric: Cooperative, appropriate mood & affect, normal judgment. (Diomedes Ruiz) Course <oJsephDiomedes - Last Filed: 05/02/17 12:16> <Darshan Louise - Last Filed: 05/02/17 12:21> Vital Signs 05/02/17 10:39 Temperature 98.0 F Pulse Rate 69 Respiratory 20 Rate Blood Pressure 175/82 O2 Sat by Pulse 100 Oximetry - Reevaluation(s) Reevaluation #1: 05/02/17 12:20 I did review the findings and the case. Patient noted ably without difficulty did request to be discharged we go to [facility] for evaluation. He did appear to be awake alert oriented 3. He had previously been referred to [facility] by Dr. Gonzalez (Darshan Louise) Medical Decision Making <Diomedes Ruiz - Last Filed: 05/02/17 12:16> <Darshan Louise - Last Filed: 05/02/17 12:21> - Medical Decision Making Case discussed in detail with attending physician Dr. Louise. Nursing staff did call urology office and patient did not have an appointment was not seen by urologist this morning. Dr. Hernandez recommended at the time that he was supposed follow-up with [facility] neurologist and that there was nothing further that he could do for his kidney stones that her up in the kidney. States there is nothing in the ureter. Patient does admit that he has been following [place] through [facility].. Was discussed with patient about pain medication here. He has declined. He states he will have someone take him down to [facility]. Advised to return for any other concerns. ( Diomedes Ruiz) - Lab Data Lab Results 05/02/17 Range/Units 11:06 Urine Color Light Yellow Urine Appearance Clear (Clear) Urine pH 5.5 (5.0-8.0) Ur Specific [place] 1.013 (1.001-1.035) Urine Protein Negative (Negative) Urine Glucose (UA) Negative (Negative) Urine Ketones Negative (Negative) Urine Blood Negative (Negative) Urine Nitrite Negative (Negative) Urine Bilirubin Negative (Negative) Urine Urobilinogen <2.0 (<2.0) mg/dL Ur Leukocyte Esterase Negative (Negative) Disposition Time of Disposition: 12:05 <Diomedes Ruiz - Last Filed: 05/02/17 12:16> <Darshan Louise - Last Filed: 05/02/17 12:21> Clinical Impression: Renal colic on left side Disposition: HOME SELF-CARE Condition: Good Instructions: Renal Colic (ED) Additional Instructions: Please follow-up with urologist through [facility] as discussed. Please return to emergency room if the symptoms increase or worsen or for any other concerns. Referrals: Vinny Pascal DO [Primary Care Provider] - 1-2 days
[2017-05-02 11:43] LABS: Appearance,Urine Clear (Clear); Bilirubin,Urine Negative (Negative); Glucose,Urine (UA) Negative (Negative); Ketones,Urine Negative (Negative); PH, Urine 5.5 (5.0-8.0); Protein,Urine Negative (Negative); Specific Gravity,Urine 1.013 (1.001-1.035)
[2017-05-02 11:44] LABS: Leukocyte Esterase,Urine Negative (Negative); Nitrite,Urine Negative (Negative); UA Billing (MACRO vs. MICRO) CHEM; Urobilinogen,Urine <2.0 mg/dL (<2.0)
[2017-05-02 12:27] VITALS: BP 151/77; PULSE 64; RESP 16; TEMP 98.2
== END 2017-05-02 12:25 | disposition home or self-care (01) ==
LOC: EC 10:34
DX: N23 Unspecified renal colic (principal); E11.9 Type 2 diabetes mellitus without complications; K21.9 Gastro-esophageal reflux disease without esophagitis; I10 Essential (primary) hypertension; N42.9 Disorder of prostate, unspecified; F41.9 Anxiety disorder, unspecified; F41.0 Panic disorder [episodic paroxysmal anxiety]; Z87.891 Personal history of nicotine dependence; Z79.891 Long term (current) use of opiate analgesic; Z79.84 Long term (current) use of oral hypoglycemic drugs; Z79.82 Long term (current) use of aspirin; Z79.899 Other long term (current) drug therapy; Z88.0 Allergy status to penicillin; Z88.1 Allergy status to other antibiotic agents; Z88.2 Allergy status to sulfonamides; Z88.6 Allergy status to analgesic agent; Z88.8 Allergy status to other drugs, medicaments and biological substances
CPT/HCPCS: 81003; 87086; 99284

== ENCOUNTER → 2017-05-15 | Outpatient (CLI) | payer MEDICARE ==
--- NOTE | 2017-05-16 12:41 | CONS ---
REASON FOR CONSULTATION: Sleep apnea. PRIMARY CARE PHYSICIAN: Dr. Vinny Pascal HISTORY OF PRESENT ILLNESS: 67-year male patient who was initially referred to a dentist for jaw pain that was emanating from chronic bruxism and grinding. After a full evaluation his dentist, the patient was suspected to have obstructive sleep apnea and he was referred to me for further evaluation. Note that during his dental evaluation the patient underwent jaw injection which help him with his chronic jaw pain. Currently the patient is snoring. He quits breathing at night and that has been confirmed by family and friends. He is excessively tired and sleepy during the day. He initially was taking half an hour nap and currently he is taking a couple of hours of nap on a daily basis. He goes to bed around 10:30 p.m. and wakes up at 7:00 a.m. and he sleeps around 7-8 hours per night. He grinds and he wakes up with jaw pain. He is wearing a bite guard. He feels restless at night. He wakes up with a dry mouth. He has occasional nighttime palpitations. His Divide score is 12. No recent weight gain or weight loss. No alcoholism. No smoking. No substance abuse. PAST MEDICAL HISTORY: 1. Bruxism. 2. Depression. 3. Hypertension. 4. Kidney stones. 5. Osteoarthritis. 6. Chronic back pain. 7. Chronic neck pain. 8. Heartburn. 9. BPH. 10. Diabetes mellitus. 11. Severe degenerative disc disease. 12. Spinal stenosis. 13. Diverticulosis. 14. Chronic esophagitis. 15. Peripheral neuropathy. SURGICAL HISTORY: Ureteroscopy and lithotripsy, vasectomy, surgery on the toes , hip injections for pain, arthroscopic Mireya plication, colonoscopy with biopsy, cholecystectomy. ALLERGIES: NAPROSYN, PROMETHAZINE, PENICILLIN, SULFA, BIAXIN, KEFLEX AND GENTAMICIN. PATIENT MEDICATION LIST: Includes. 1. Aspirin 81 mg p.o. q. day. 2. Afrin nasal spray. 3. Citalopram 40 mg p.o. q.day. 4. Flomax 0.4 mg p.o. q.day. 5. Glucophage XR 500 mg p.o. q.day. 6. Levsin 0.125 mg p.o. q.day. 7. Morphine sulfate 50 mg p.o. q.day. 8. Omeprazole 20 mg p.o. q.day. 9. Lisinopril 2.5 mg p.o. q.day. 10. Temazepam 30 mg p.o. q.day. SOCIAL HISTORY: Nonsmoker, no history of alcohol or IV drugs. He is retired. He is the 21st employee of [employer]. FAMILY HISTORY: Negative for sleep apnea. REVIEW OF SYSTEMS: 12 point review of systems was done. Positive findings as mentioned above in History of Present Illness. BP is 136/76, pulse 88, respirations 16, temperature 98.2. Saturation 93% on room air MTDD
== END ==
LOC: SLEEP 14:31
PROVIDERS: ATTEND Internal Medicine Critical Care Medicine
DX: G47.30 Sleep apnea, unspecified (principal); Z79.82 Long term (current) use of aspirin; Z79.899 Other long term (current) drug therapy; Z88.0 Allergy status to penicillin; Z88.1 Allergy status to other antibiotic agents; Z88.2 Allergy status to sulfonamides; Z88.8 Allergy status to other drugs, medicaments and biological substances
CPT/HCPCS: 99211

== ENCOUNTER 2017-06-03 20:26 | Emergency (ER) | payer MEDICARE ==
--- NOTE | 2017-06-03 20:44 | ED ---
Chest Pain HPI - General Chief Complaint: Chest Pain Stated Complaint: Chest Pain Time Seen by Provider: 06/03/17 20:43 Source: patient Mode of arrival: wheelchair Limitations: no limitations - History of Present Illness Initial Comments: This patient is 67-year-old man who presents to be evaluated for a number symptoms that include cough, some mild shortness of breath, and some substernal chest pain. The patient relates that he had surgery last week to have removal of kidney stones. This was at a [facility] facility. He states that on the following day he was having a little bit of cough. States that the cough worsened overnight and he was feeling a little bit short of breath. Today he has had some pain to the center of the chest area that gets worse when he coughs. He describes as feeling tight. There were no other associated symptoms. He has not found any relieving symptoms. The pain is mild. MD Complaint: chest pain, other (Cough and shortness of breath) -: hour(s) Onset: during rest Pain Location: substernal Quality: tightness Consistency: constant Improves With: nothing Worsens With: other (Cough) Context: recent surgery Anginal Symptoms: vomiting Other Symptoms: cough Treatments Prior to Arrival: none - Related Data Home Medications Medication Instructions Recorded Confirmed Temazepam [Restoril] 30 mg PO HS 03/05/15 06/03/17 Citalopram Hydrobromide [CeleXA] 40 mg PO DAILY 02/05/16 06/03/17 Morphine Sulfate Ir [MSIR] 15 mg PO BID PRN 02/05/16 06/03/17 Levocetirizine Dihydrochloride 5 mg PO HS 07/13/16 06/03/17 [Xyzal] Tamsulosin [Flomax] 0.4 mg PO HS 07/13/16 06/03/17 ALPRAZolam [Xanax] 0.25 mg PO DAILY PRN 07/15/16 06/03/17 Hyoscyamine Sulfate [Levsin-Sl] 0.125 mg SL AC-TID PRN 08/04/16 06/03/17 metFORMIN HCL [Glucophage Xr] 500 mg PO BID 11/27/16 06/03/17 Aspirin EC [Ecotrin Low Dose] 81 mg PO DAILY 12/22/16 06/03/17 Omeprazole 40 mg PO BID 12/22/16 06/03/17 Artificial Tears-Hypromellose 1 drops BOTH EYES TID PRN 02/27/17 06/03/17 [Artificial Tear Drops] Lisinopril [Zestril] 2.5 mg PO DAILY 05/02/17 06/03/17 Previous Rx's Medication Instructions Recorded Albuterol Inhaler [Ventolin Hfa 1 - 2 puff INHALATION Q6HR PRN #1 06/03/17 Inhaler] inhaler predniSONE 20 mg PO BID #8 tab 06/03/17 Allergies Allergy/AdvReac Type Severity Reaction Status Date / Time cephalexin monohydrate Allergy Rash/Hives Verified 06/03/17 21:00 [From Keflex] clarithromycin [From Biaxin] Allergy Unknown Verified 06/03/17 21:00 gentamicin [Gentamicin] Allergy Unknown Verified 06/03/17 21:00 naproxen Allergy Unknown Verified 06/03/17 21:00 Penicillins Allergy Anaphylaxis Verified 06/03/17 21:00 Sulfa (Sulfonamide Allergy Rash/Hives Verified 06/03/17 21:00 Antibiotics) promethazine AdvReac Nausea & Verified 06/03/17 21:00 Vomiting Review of Systems ROS Statement: Those systems with pertinent positive or pertinent negative responses have been documented in the HPI. ROS Other: All systems not noted in ROS Statement are negative. EKG Findings - EKG Results: EKG: interpreted by THEA WARE, sinus rhythm (Rate 69 bpm), normal axis, normal QRS, normal ST/T, no acute changes Past Medical History Past Medical History: Chest Pain / Angina, Diabetes Mellitus, GERD/Reflux, Hypertension, Prostate Disorder Additional Past Medical History / Comment(s): migraines, diverticulosis, kidney stones, neurpathy hands & feet, low BACK PAIN-sees Dr. Jackson, History of Any Multi-Drug Resistant Organisms: None Reported Past Surgical History: Cholecystectomy, Heart Catheterization, Hernia Repair, Orthopedic Surgery Additional Past Surgical History / Comment(s): EGD , Laparoscopic Mireya Fundoplasty, lap uma, CYSTOSCOPY AND LITHITRIPSY LT URETERAL STENT-SINCE REMOVED. RIGHT BREAST BIOPSY, TOTAL LT KNEE ; LT FOOT , LARA INGUINAL HERNIA, PERCUTANEOUS NEPHROLITHOTOMY. BILATERAL hand surgery. , back procedure for nerve endings and [facility], colonoscopy.ESOPHGEAL DILATION Past Anesthesia/Blood Transfusion Reactions: Motion Sickness Additional Past Anesthesia/Blood Transfusion Reaction / Comment(s): NEVER HAD ANY BLOOD TRANSFUSIONS Past Psychological History: No Psychological Hx Reported Smoking Status: Former smoker Past Alcohol Use History: None Reported Past Drug Use History: None Reported - Past Family History Father Family Medical History: Cancer Mother Family Medical History: Liver Disease Additional Family Medical History / Comment(s): Mother had hepatitis. General Exam Limitations: no limitations General appearance: alert, in no apparent distress Head exam: Present: atraumatic, normocephalic Respiratory exam: Present: wheezes. Absent: respiratory distress, rales, rhonchi, stridor, chest wall tenderness, accessory muscle use, decreased breath sounds, prolonged expiratory Cardiovascular Exam: Present: regular rate, normal rhythm, normal heart sounds. Absent: systolic murmur, diastolic murmur, rubs, gallop GI/Abdominal exam: Present: soft. Absent: distended, tenderness, guarding, rebound Extremities exam: Present: normal inspection, normal capillary refill. Absent: pedal edema, calf tenderness Back exam: Absent: CVA tenderness (R), CVA tenderness (L) Neurological exam: Present: alert Psychiatric exam: Present: normal affect Skin exam: Present: warm, dry, intact, normal color. Absent: rash Course Vital Signs 06/03/17 06/03/17 06/03/17 20:28 21:39 21:45 Temperature 99 F Pulse Rate 86 67 65 Respiratory 20 16 Rate Blood Pressure 175/79 146/67 O2 Sat by Pulse 98 97 Oximetry 06/03/17 21:56 Temperature Pulse Rate 76 Respiratory Rate Blood Pressure O2 Sat by Pulse Oximetry Disposition Clinical Impression: COPD (chronic obstructive pulmonary disease) Disposition: HOME SELF-CARE Condition: Fair Instructions: COPD (Chronic Obstructive Pulmonary Disease) (ED) Prescriptions: Albuterol Inhaler [Ventolin Hfa Inhaler] 1 - 2 puff INHALATION Q6HR PRN #1 inhaler PRN Reason: Wheezing predniSONE 20 mg PO BID #8 tab Referrals: Vinny Pascal DO [Primary Care Provider] - 1-2 days
[2017-06-03] MEDS ORDERED: IPRATROPIUM-ALBUTEROL 3 ML NEB INHALATION STA (20:50)
[2017-06-03 21:14] LABS: Anion Gap 8 mmol/L; Calcium 8.9 mg/dL (8.4-10.2); Carbon Dioxide 24 mmol/L (22-30); Chloride 109 mmol/L (98-107); Glucose 132 mg/dL (74-99); Non-African American GFR(MDRD) >60 (>60 ml/min/1.73 sqM); Sodium 141 mmol/L (137-145); Total Bilirubin 0.6 mg/dL (0.2-1.3); Total Protein 6.4 g/dL (6.3-8.2)
[2017-06-03 21:17] LABS: ALT 35 U/L (21-72); AST 31 U/L (17-59); Alkaline Phosphatase 369 U/L (38-126); Blood Urea Nitrogen 13 mg/dL (9-20); Potassium 4.5 mmol/L (3.5-5.1)
[2017-06-03 21:20] LABS: Anisocytosis Moderate; CH 31.4; CHCM 32.4; HCT 41.4 % (39.0-53.0); HDW 3.52; HGB 13.2 gm/dL (13.0-17.5); Hypochromasia Slight; MCV 96.8 fL (80.0-100.0); Macrocytosis Slight; Mean Platelet Volume 8.5; Poikilocytosis Slight; RBC 4.27 m/uL (4.30-5.90); RDW 21.3 % (11.5-15.5); WBC 9.2 k/uL (3.8-10.6); WBC (Perox) 9.11
--- NOTE | 2017-06-03 21:28 | XR ---
EXAMINATION TYPE: XR chest 1V portable DATE OF EXAM: 06/03/2017 Comparison: 11/27/2016 Clinical History: 67-year-old male with chest pain Findings: Heart is upper limits of normal in size. Mild elongation of the thoracic aorta. Strandy strandy atele ctasis of the lung bases and mild chronic interstitial prominence. No donte consolidation or pleural effusion. Impression: Chronic changes without acute process seen.
[2017-06-03 21:31] LABS: Add Differential Manual Differential; INR 1.1 (<1.2); Partial Thromboplastin Time 23.4 sec (22.0-30.0); Prothrombin Time 11.3 sec (9.0-12.0)
[2017-06-03 21:34] LABS: Band Neutrophils % 2 %; Manual Review Performed; Nucleated Red Blood Cells 0 /100 WBC (0-0); Ovalocytes Present; Total Cells Counted 100
[2017-06-03 21:41] VITALS: RESP 16
[2017-06-03] MEDS ORDERED: RX INFO: IV CONTRAST WAS GIVEN 1 EACH MISC MISCELLANE PRN (22:12)
--- NOTE | 2017-06-03 22:49 | CT ---
EXAM: CT Angiography Chest With Intravenous Contrast CLINICAL HISTORY: Reason: Pain TECHNIQUE: Axial computed tomographic angiography images of the chest with intravenous contrast using pulmonary embolism protocol. DLP is 380.90 mGy-cm. This CT exam was performed using one or more of the following dose reduction techniques: automated exposure control, adjustment of the mA and/or kV according to patient size, and/or use of iterative reconstruction technique. MIP reconstructed images were created and reviewed. CONTRAST: 90 mL of omni 350 administered intravenously. COMPARISON: 03/24/16 FINDINGS: Pulmonary arteries: Unremarkable. No pulmonary embolism. Aorta: No acute findings. No thoracic aortic aneurysm. Lungs: Mixed paraseptal and centrilobular emphysema. Subsegmental atelectasis noted in the lung bases bilaterally. No mass. Pleural space: Unremarkable. No significant effusion. No pneumothorax. Heart: Unremarkable. No cardiomegaly. No significant pericardial effusion. No evidence of RV dysfunction. Mediastinum: Small hiatus hernia noted. Bones/joints: No acute fracture. No dislocation. Soft tissues: Unremarkable. Lymph nodes: Unremarkable. No enlarged lymph nodes. IMPRESSION: No acute findings.
[2017-06-04 00:03] VITALS: BP 147/70; PULSE 67; TEMP 98.4
== END 2017-06-04 00:03 | disposition home or self-care (01) ==
LOC: EC 20:26
DX: J44.9 Chronic obstructive pulmonary disease, unspecified (principal); E11.9 Type 2 diabetes mellitus without complications; K21.9 Gastro-esophageal reflux disease without esophagitis; I10 Essential (primary) hypertension; N42.9 Disorder of prostate, unspecified; Z95.5 Presence of coronary angioplasty implant and graft; Z87.891 Personal history of nicotine dependence; Z79.4 Long term (current) use of insulin; Z79.82 Long term (current) use of aspirin; Z79.899 Other long term (current) drug therapy; Z88.0 Allergy status to penicillin; Z88.1 Allergy status to other antibiotic agents; Z88.2 Allergy status to sulfonamides; Z88.6 Allergy status to analgesic agent; Z88.8 Allergy status to other drugs, medicaments and biological substances
CPT/HCPCS: 36415; 94640; 93005; 85379; 83880; 80053; 84484; 85025; 85610; 85730; 71010; 71275; 99285; Q9967

== ENCOUNTER 2017-07-11 12:28 | Emergency (ER) | payer MEDICARE ==
[2017-07-11] MEDS ORDERED: ACETAMINOPHEN TAB 500 MG TAB PO STA (14:24)
--- NOTE | 2017-07-11 14:25 | CT ---
EXAMINATION TYPE: CT brain wo con DATE OF EXAM: 07/11/2017 COMPARISON: NONE INDICATION: Lt eye pain with blurred vision DLP: 1121 mGycm, Automated exposure control for dose reduction was used. CONTRAST: None CT of the brain is performed utilizing 3 mm thick sections through the posterior fossa and 3 mm thick sections through the remaining calvarium. Study is performed within 24 hours of arrival to the hosp [facility]. There is a small focal area of increased density in the subcutaneous tissues at indication swelling o hanna the left orbit is approximately 0.5 cm transverse dimension. No radiopaque foreign bodies are denisha ntified. The orbits appear unremarkable as visualized. No abnormal hyperdensity is present to suggest an acute intracranial hemorrhage. No mass lesion is evident. No acute infarcts are evident. Minimal periventricular white matter hypodensity is present, likely on the basis of chronic white matter ischemic changes. Ventricles and sulci are slightly prominent for the patient age. Paranasal sinuses and mastoid air cells within the [id number] are clear. IMPRESSIONS: 1. Mild atrophy with periventricular white matter ischemic type changes. 2. Tiny subcutaneous swelling in the left frontal region corresponding to the patient's physical fi ndings of swelling that location
[2017-07-11 14:40] VITALS: BP 118/68; PULSE 80; RESP 18; TEMP 97.3
--- NOTE | 2017-07-11 14:45 | ED ---
General Adult HPI - General Chief complaint: Headache Stated complaint: Sent by Urgent Care/head pain Time Seen by Provider: 07/11/17 13:28 Source: patient, RN notes reviewed Mode of arrival: ambulatory Limitations: no limitations - History of Present Illness Initial comments: This is a 59-year-old male who presents to emergency department with chief complaint of headache. Patient states 3 days ago he developed a localized swelling over left eyebrow. 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 Patient states that over the past 3 days he has been having intermittent episodes of sharp, shooting pain in the frontal region of the left head. Patient states these episodes happen hourly usually lasting 10 minutes at a time. Patient reports that during these episodes he experiences blurred vision in left eye. Patient states that he started taking Tylenol at home without relief. He does state that he takes 10 mg of morphine every morning for spinal stenosis. Morphine does not seem to be helping either. 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 He then presented to the urgent care who advised him to come to the emergency department. Denies fever, chills, chest pain, shortness of breath, abdominal pain, nausea or vomiting, constipation or diarrhea, dysuria or hematuria, numbness or tingling. - Related Data Home Medications Medication Instructions Recorded Confirmed Temazepam [Restoril] 30 mg PO HS 03/05/15 07/11/17 Citalopram Hydrobromide [CeleXA] 40 mg PO DAILY 02/05/16 07/11/17 Morphine Sulfate Ir [MSIR] 15 mg PO BID PRN 02/05/16 07/11/17 Levocetirizine Dihydrochloride 5 mg PO HS 07/13/16 07/11/17 [Xyzal] Tamsulosin [Flomax] 0.4 mg PO HS 07/13/16 07/11/17 ALPRAZolam [Xanax] 0.25 mg PO DAILY PRN 07/15/16 07/11/17 Hyoscyamine Sulfate [Levsin-Sl] 0.125 mg SL AC-TID PRN 08/04/16 07/11/17 metFORMIN HCL [Glucophage Xr] 500 mg PO BID 11/27/16 07/11/17 Aspirin EC [Ecotrin Low Dose] 81 mg PO DAILY 12/22/16 07/11/17 Omeprazole 40 mg PO BID 12/22/16 07/11/17 Artificial Tears-Hypromellose 1 drops BOTH EYES TID PRN 02/27/17 07/11/17 [Artificial Tear Drops] Lisinopril [Zestril] 2.5 mg PO DAILY 05/02/17 07/11/17 Albuterol Inhaler [Ventolin Hfa 1 - 2 puff INHALATION RT-Q6H PRN 07/11/17 Inhaler] Allergies Allergy/AdvReac Type Severity Reaction Status Date / Time cephalexin monohydrate Allergy Rash/Hives Verified 07/11/17 14:26 [From Keflex] clarithromycin [From Biaxin] Allergy Unknown Verified 07/11/17 14:26 gentamicin [Gentamicin] Allergy Unknown Verified 07/11/17 14:26 naproxen Allergy Unknown Verified 07/11/17 14:26 Penicillins Allergy Anaphylaxis Verified 07/11/17 14:26 Sulfa (Sulfonamide Allergy Rash/Hives Verified 07/11/17 14:26 Antibiotics) promethazine AdvReac Nausea & Verified 07/11/17 14:26 Vomiting Review of Systems ROS Statement: Those systems with pertinent positive or pertinent negative responses have been documented in the HPI. ROS Other: All systems not noted in ROS Statement are negative. Past Medical History Past Medical History: Chest Pain / Angina, Diabetes Mellitus, GERD/Reflux, Hypertension, Prostate Disorder Additional Past Medical History / Comment(s): migraines, diverticulosis, kidney stones, neurpathy hands & feet, low BACK PAIN-sees Dr. Jackson, History of Any Multi-Drug Resistant Organisms: None Reported Past Surgical History: Cholecystectomy, Heart Catheterization, Hernia Repair, Orthopedic Surgery Additional Past Surgical History / Comment(s): EGD , Laparoscopic Mireya Fundoplasty, lap uma, CYSTOSCOPY AND LITHITRIPSY LT URETERAL STENT-SINCE REMOVED. RIGHT BREAST BIOPSY, TOTAL LT KNEE ; LT FOOT , LARA INGUINAL HERNIA, PERCUTANEOUS NEPHROLITHOTOMY. BILATERAL hand surgery. , back procedure for nerve endings and [facility], colonoscopy.ESOPHGEAL DILATION Past Anesthesia/Blood Transfusion Reactions: Motion Sickness Additional Past Anesthesia/Blood Transfusion Reaction / Comment(s): NEVER HAD ANY BLOOD TRANSFUSIONS Past Psychological History: No Psychological Hx Reported Smoking Status: Former smoker Past Alcohol Use History: None Reported Past Drug Use History: None Reported - Past Family History Father Family Medical History: Cancer Mother Family Medical History: Liver Disease Additional Family Medical History / Comment(s): Mother had hepatitis. General Exam - General Exam Comments Initial Comments: General: Awake and alert, well-developed; in no apparent distress. HEENT: Head atraumatic, normocephalic. Pupils are equal, round and reactive to light. Extraocular movements intact. Oropharynx moist without erythema or exudate. Small localized swelling superior to left eyebrow. Tender on palpation. No tenderness on palpation over temporal artery. Neck: Supple. Normal ROM. Cardiovascular: Regular rate and rhythm. No murmurs, rubs or gallops. Chest symmetrical. Respiratory: Lungs clear to auscultation bilaterally. No wheezes, rales or rhonchi. Normal respiratory effort with no use of accessory muscles. Skin: [place], warm and dry without rashes or lesions. Neurological: Alert and oriented x3. CN II-XII grossly intact. Speech is fluent and answers are appropriate. No focal neuro deficits. Psychiatric: Normal mood and affect. No overt signs of depression or anxiety noted. Limitations: no limitations Course Vital Signs 07/11/17 12:46 Temperature 98.5 F Pulse Rate 77 Respiratory 16 Rate Blood Pressure 117/73 O2 Sat by Pulse 97 Oximetry Medical Decision Making - Medical Decision Making This is a 59-year-old male who presents to the emergency room with chief complaint of headache. Computed tomography scan of brain is unremarkable showing only the tiny localized swelling above the left eyebrow as evidence on physical exam. Patient will be discharged home with recommendation to place warm compresses over the lesion multiple times daily. He will follow up with ENT in 1-2 days. He already has morphine at home that he takes for spinal stenosis, so will not be prescribed any pain medication. He is advised that he may take Tylenol as needed. He is in agreement to the plan and voices understanding. All questions answered. - Radiology Data Radiology results: report reviewed Brain CT impression: 1. Mild atrophy with periventricular white matter ischemic type changes. 2. Tiny subcutaneous swelling in the left frontal region corresponding to the patient's physical findings of swelling in that location. Disposition Clinical Impression: Cluster headaches Disposition: HOME SELF-CARE Condition: Good Instructions: Cluster Headache (ED) Additional Instructions: Please follow up with Dr. Sierra, ENT within 1-2 days. Please follow up with primary care provider within 1-2 days. Return to emergency department if symptoms should worsen or any concerns arise. Referrals: Vinny Pascal DO [Primary Care Provider] - 1-2 days Mitch Sierra DO [Doctor of Osteopathic Medicine] - 1-2 days Time of Disposition: 14:46
== END 2017-07-11 14:52 | disposition home or self-care (01) ==
LOC: EC 12:28
DX: G44.009 Cluster headache syndrome, unspecified, not intractable (principal); H53.8 Other visual disturbances; R22.0 Localized swelling, mass and lump, head; G31.9 Degenerative disease of nervous system, unspecified; R90.82 White matter disease, unspecified; I10 Essential (primary) hypertension; K21.9 Gastro-esophageal reflux disease without esophagitis; E11.40 Type 2 diabetes mellitus with diabetic neuropathy, unspecified; N42.9 Disorder of prostate, unspecified; Z87.891 Personal history of nicotine dependence; Z79.82 Long term (current) use of aspirin; Z79.84 Long term (current) use of oral hypoglycemic drugs; Z79.899 Other long term (current) drug therapy; Z88.0 Allergy status to penicillin; Z88.1 Allergy status to other antibiotic agents; Z88.2 Allergy status to sulfonamides; Z88.6 Allergy status to analgesic agent; Z88.8 Allergy status to other drugs, medicaments and biological substances; Z87.39 Personal history of other diseases of the musculoskeletal system and connective tissue
CPT/HCPCS: 70450; 99283

== ENCOUNTER 2017-07-12 13:42 | Emergency (ER) | payer MEDICARE ==
--- NOTE | 2017-07-12 14:35 | ED ---
General Adult HPI - General Chief complaint: Headache Stated complaint: Headache Time Seen by Provider: 07/12/17 14:22 Source: patient, RN notes reviewed, old records reviewed Mode of arrival: wheelchair Limitations: physical limitation - History of Present Illness Initial comments: Patient is a pleasant 67-year-old male presenting to the emergency Department with headache. Gradual onset. Onset was 5 days ago. First day was not too bad. Symptoms have been waxing and waning since that time. Discomfort is severe at times and patient has blurry vision when discomfort is severe. Discomfort is mostly above the left eye. Patient states he has approximately a dozen episodes a day of severe pain. Patient was in the emergency department yesterday and had reported normal head CT. Patient did follow-up with Dr. Espinoza today for a nodule near his left eyebrow. Dr. Clifford recommended patient come back to the emergency department. No weakness. No confusion. Discomfort is mild at this time however patient does request pain medication. - Related Data Home Medications Medication Instructions Recorded Confirmed Temazepam [Restoril] 30 mg PO HS 03/05/15 07/12/17 Citalopram Hydrobromide [CeleXA] 40 mg PO DAILY 02/05/16 07/12/17 Morphine Sulfate Ir [MSIR] 15 mg PO BID PRN 02/05/16 07/12/17 Levocetirizine Dihydrochloride 5 mg PO HS 07/13/16 07/12/17 [Xyzal] Tamsulosin [Flomax] 0.4 mg PO HS 07/13/16 07/12/17 ALPRAZolam [Xanax] 0.25 mg PO DAILY PRN 07/15/16 07/12/17 Hyoscyamine Sulfate [Levsin-Sl] 0.125 mg SL AC-TID PRN 08/04/16 07/12/17 metFORMIN HCL [Glucophage Xr] 500 mg PO BID 11/27/16 07/12/17 Aspirin EC [Ecotrin Low Dose] 81 mg PO DAILY 12/22/16 07/12/17 Omeprazole 40 mg PO BID 12/22/16 07/12/17 Artificial Tears-Hypromellose 1 drops BOTH EYES TID PRN 02/27/17 07/12/17 [Artificial Tear Drops] Lisinopril [Zestril] 2.5 mg PO DAILY 05/02/17 07/12/17 Albuterol Inhaler [Ventolin Hfa 1 - 2 puff INHALATION RT-Q6H PRN 07/11/17 Inhaler] Allergies Allergy/AdvReac Type Severity Reaction Status Date / Time cephalexin monohydrate Allergy Rash/Hives Verified 07/12/17 14:00 [From Keflex] clarithromycin [From Biaxin] Allergy Unknown Verified 07/12/17 14:00 gentamicin [Gentamicin] Allergy Unknown Verified 07/12/17 14:00 naproxen Allergy Unknown Verified 07/12/17 14:00 Penicillins Allergy Anaphylaxis Verified 07/12/17 14:00 Sulfa (Sulfonamide Allergy Rash/Hives Verified 07/12/17 14:00 Antibiotics) promethazine AdvReac Nausea & Verified 07/12/17 14:00 Vomiting Review of Systems ROS Statement: Those systems with pertinent positive or pertinent negative responses have been documented in the HPI. ROS Other: All systems not noted in ROS Statement are negative. Constitutional: Denies: fever Eyes: Denies: eye pain ENT: Denies: ear pain Respiratory: Denies: cough Cardiovascular: Denies: chest pain Endocrine: Denies: fatigue Gastrointestinal: Denies: abdominal pain Genitourinary: Denies: dysuria Musculoskeletal: Denies: back pain Skin: Denies: rash Neurological: Reports: headache. Denies: weakness, confusion Past Medical History Past Medical History: Chest Pain / Angina, Diabetes Mellitus, GERD/Reflux, Hypertension, Prostate Disorder Additional Past Medical History / Comment(s): migraines, diverticulosis, kidney stones, neurpathy hands & feet, low BACK PAIN-sees Dr. Jackson, History of Any Multi-Drug Resistant Organisms: None Reported Past Surgical History: Cholecystectomy, Heart Catheterization, Hernia Repair, Orthopedic Surgery Additional Past Surgical History / Comment(s): EGD , Laparoscopic Mireya Fundoplasty, lap uma, CYSTOSCOPY AND LITHITRIPSY LT URETERAL STENT-SINCE REMOVED. RIGHT BREAST BIOPSY, TOTAL LT KNEE ; LT FOOT , LARA INGUINAL HERNIA, PERCUTANEOUS NEPHROLITHOTOMY. BILATERAL hand surgery. , back procedure for nerve endings and [facility], colonoscopy.ESOPHGEAL DILATION Past Anesthesia/Blood Transfusion Reactions: Motion Sickness Additional Past Anesthesia/Blood Transfusion Reaction / Comment(s): NEVER HAD ANY BLOOD TRANSFUSIONS Past Psychological History: No Psychological Hx Reported Smoking Status: Former smoker Past Alcohol Use History: None Reported Past Drug Use History: None Reported - Past Family History Father Family Medical History: Cancer Mother Family Medical History: Liver Disease Additional Family Medical History / Comment(s): Mother had hepatitis. General Exam Limitations: no limitations General appearance: alert, in no apparent distress Head exam: Present: atraumatic, normocephalic, other (Left forehead with small nodule above the medial left eyebrow less than 1 cm. There is tenderness to the left forehead medially. No tenderness over the temporal region or temporal artery.) Eye exam: Present: normal appearance, PERRL, EOMI. Absent: nystagmus ENT exam: Present: normal oropharynx Neck exam: Present: normal inspection Respiratory exam: Present: normal lung sounds bilaterally Cardiovascular Exam: Present: regular rate, normal rhythm GI/Abdominal exam: Present: soft. Absent: tenderness Extremities exam: Present: normal inspection Neurological exam: Present: alert, oriented X3, CN II-XII intact. Absent: motor sensory deficit Expanded Patient oriented to: Present: person, place, time Speech: Present: fluid speech Cranial nerves: EOM's Intact: Normal, Facial Sensation: Normal Sensory exam: Upper Extremity Light Touch: Normal, Lower Extremity Light Touch: Normal Motor strength exam: RUE: 5, LUE: 5, RLE: 5, LLE: 5 Eye Response: (4) open spontaneously Motor Response: (6) obeys commands Verbal Response: (5) oriented Psychiatric exam: Present: normal affect, normal mood Skin exam: Present: normal color Course Vital Signs 07/12/17 07/12/17 13:51 16:01 Temperature 98.3 F 97.2 F L Pulse Rate 80 63 Respiratory 18 16 Rate Blood Pressure 130/63 130/77 O2 Sat by Pulse 98 99 Oximetry - Reevaluation(s) Reevaluation #1: 07/12/17 14:51 Case discussed in detail with Dr. Pascal who is very familiar with this patient. He does not feel patient needs further evaluation and recommends discharge and will follow-up with the patient in the beginning of the week. He has concerns regarding patient's desire for narcotic medication and recommends avoiding this. 07/12/17 16:18 Patient reexamined and resting comfortably in bed. Patient states symptoms have somewhat improved however not completely resolved and again requests medication. CT reviewed from yesterday. Patient updated on need for follow-up. Disposition Clinical Impression: Cephalgia Disposition: HOME SELF-CARE Condition: Stable Instructions: Acute Headache (ED) Additional Instructions: Please follow-up with primary care physician tomorrow or beginning of the week. Return for weakness, fevers, confusion, loss of vision, worsening or changing symptoms or other concerns. Referrals: Vinny Pascal DO [Primary Care Provider] - 1-2 days Time of Disposition: 16:20
[2017-07-12 16:01] VITALS: TEMP 97.2
[2017-07-12] MEDS ORDERED: KETOROLAC 30 MG/ML 1 ML VIAL IVP STA (16:20)
[2017-07-12 16:52] VITALS: BP 130/80; PULSE 80; RESP 20
== END 2017-07-12 16:51 | disposition home or self-care (01) ==
LOC: EC 13:42
DX: R51 Headache (principal); H53.8 Other visual disturbances; R22.0 Localized swelling, mass and lump, head; I10 Essential (primary) hypertension; E11.9 Type 2 diabetes mellitus without complications; K21.9 Gastro-esophageal reflux disease without esophagitis; N42.9 Disorder of prostate, unspecified; Z87.891 Personal history of nicotine dependence; Z79.82 Long term (current) use of aspirin; Z79.84 Long term (current) use of oral hypoglycemic drugs; Z79.899 Other long term (current) drug therapy; Z88.0 Allergy status to penicillin; Z88.1 Allergy status to other antibiotic agents; Z88.2 Allergy status to sulfonamides; Z88.6 Allergy status to analgesic agent; Z88.8 Allergy status to other drugs, medicaments and biological substances; Z87.39 Personal history of other diseases of the musculoskeletal system and connective tissue
CPT/HCPCS: 99283 ×2; 96374 ×2; J1885

== ENCOUNTER → 2017-08-10 | Outpatient (CLI) | payer MEDICARE ==
[2017-08-10 10:10] LABS: ALT 43 U/L (21-72); AST 27 U/L (17-59); Alkaline Phosphatase 327 U/L (38-126); Anion Gap 9 mmol/L; Blood Urea Nitrogen 23 mg/dL (9-20); Calcium 9.2 mg/dL (8.4-10.2); Carbon Dioxide 25 mmol/L (22-30); Chloride 109 mmol/L (98-107); Cholesterol 128 mg/dL (<200); Glucose 104 mg/dL (74-99); HDL Cholesterol 59 mg/dL (40-60); Non-African American GFR(MDRD) >60 (>60 ml/min/1.73 sqM); Potassium 4.3 mmol/L (3.5-5.1); Sodium 143 mmol/L (137-145); Total Bilirubin 0.8 mg/dL (0.2-1.3); Total Protein 6.3 g/dL (6.3-8.2)
== END | disposition home or self-care (01) ==
LOC: LABWHC1 09:23
PROVIDERS: ATTEND Internal Medicine Endocrinology, Diabetes & Metabolism
DX: E11.65 Type 2 diabetes mellitus with hyperglycemia (principal)
CPT/HCPCS: 36415; 80053; 80061

== ENCOUNTER 2017-12-07 21:06 | Emergency (ER) | payer MEDICARE ==
--- NOTE | 2017-12-07 22:04 | XR ---
EXAMINATION: XR chest 2V DATE AND TIME: 12/07/2017 9:57 PM ORDERING PROVIDER: Chava Coronel MD CLINICAL INDICATION: cough TECHNIQUE: PA and lateral COMPARISON: 06/03/2017 DESCRIPTION: The lungs are clear. The pleural spaces are negative. The cardiac silhouette is not enlarged; the mediastinal and pleural silhouettes are unremarkable. The skeletal structures are intact without focal findings. The soft tissues are unremarkable. IMPRESSION: NO ACUTE PROCESS.
[2017-12-07] MEDS ORDERED: ALBUTEROL NEBULIZED 2.5 MG/3 ML INHALATION STA ×2 (22:08→22:53)
--- NOTE | 2017-12-07 22:14 | ED ---
URI HPI - General Chief Complaint: Upper Respiratory Infection Stated Complaint: Pneumonia Time Seen by Provider: 12/07/17 21:38 Source: patient Mode of arrival: ambulatory Limitations: no limitations - History of Present Illness Initial Comments: This patient is a 67-year-old man who presents to be evaluated for symptoms that include coughing, chest congestion, nasal congestion, and some pains when he coughs. The patient indicates the pains are burning and are present when he coughs, otherwise not there. He states that the symptoms came on between 2-3 days ago, and he was seen 2 days ago at the urgent care. He states that when he was there she was told that he has pneumonia and given a prescription for Levaquin and an inhaler. He states he has been using the medications for 2 days and has not detected any improvement so he presents here for reevaluation. MD Complaint: cough, nasal congestion, other (Chest congestion) Onset/Timin -: days(s) Severity: moderate Quality: burning Consistency: intermittent Worsens With: other (Coughing) Context: sick contacts Associated Symptoms: denies other symptoms, nasal congestion, cough, other ( Chest congestion) Treatments Prior to Arrival: antibiotics, other (Inhaler) - Related Data Home Medications Medication Instructions Recorded Confirmed Temazepam [Restoril] 30 mg PO HS 03/05/15 12/07/17 Citalopram Hydrobromide [CeleXA] 40 mg PO DAILY 02/05/16 12/07/17 Morphine Sulfate Ir [MSIR] 15 mg PO BID PRN 02/05/16 12/07/17 Levocetirizine Dihydrochloride 5 mg PO HS 07/13/16 12/07/17 [Xyzal] Tamsulosin [Flomax] 0.4 mg PO HS 07/13/16 12/07/17 Hyoscyamine Sulfate [Levsin-Sl] 0.125 mg SL AC-TID PRN 08/04/16 12/07/17 metFORMIN HCL [Glucophage Xr] 500 mg PO BID 11/27/16 12/07/17 Aspirin EC [Ecotrin Low Dose] 81 mg PO DAILY 12/22/16 12/07/17 Omeprazole 40 mg PO BID 12/22/16 12/07/17 Lisinopril [Zestril] 2.5 mg PO DAILY 05/02/17 12/07/17 Albuterol Inhaler [Ventolin Hfa 1 - 2 puff INHALATION RT-Q6H PRN 07/11/17 Inhaler] Azelastine HCl [Astepro] 2 spray NASAL BID 12/07/17 12/07/17 Levofloxacin [Levaquin] 750 mg PO DAILY 12/07/17 12/07/17 Previous Rx's Medication Instructions Recorded predniSONE 20 mg PO BID #8 tab 12/07/17 Allergies Allergy/AdvReac Type Severity Reaction Status Date / Time cephalexin monohydrate Allergy Rash/Hives Verified 12/07/17 22:08 [From Keflex] clarithromycin [From Biaxin] Allergy Unknown Verified 12/07/17 22:08 gentamicin [Gentamicin] Allergy Unknown Verified 12/07/17 22:08 naproxen Allergy Unknown Verified 12/07/17 22:08 Penicillins Allergy Anaphylaxis Verified 12/07/17 22:08 Sulfa (Sulfonamide Allergy Rash/Hives Verified 12/07/17 22:08 Antibiotics) promethazine AdvReac Nausea & Verified 12/07/17 22:08 Vomiting Review of Systems ROS Statement: Those systems with pertinent positive or pertinent negative responses have been documented in the HPI. ROS Other: All systems not noted in ROS Statement are negative. Constitutional: Denies: fever, chills, weakness ENT: Reports: congestion. Denies: ear pain Respiratory: Reports: as per HPI, cough, dyspnea, wheezes. Denies: hemoptysis Cardiovascular: Reports: as per HPI, chest pain. Denies: palpitations, dyspnea on exertion, orthopnea, edema, syncope Gastrointestinal: Denies: abdominal pain, vomiting, diarrhea Genitourinary: Denies: dysuria Musculoskeletal: Denies: back pain Skin: Denies: rash Neurological: Denies: headache, weakness, numbness Past Medical History Past Medical History: Chest Pain / Angina, Diabetes Mellitus, GERD/Reflux, Hypertension, Prostate Disorder Additional Past Medical History / Comment(s): migraines, diverticulosis, kidney stones, neurpathy hands & feet, low BACK PAIN-sees Dr. Jackson, History of Any Multi-Drug Resistant Organisms: None Reported Past Surgical History: Cholecystectomy, Heart Catheterization, Hernia Repair, Orthopedic Surgery Additional Past Surgical History / Comment(s): EGD , Laparoscopic Mireya Fundoplasty, lap uma, CYSTOSCOPY AND LITHOTRIPSY LT URETERAL STENT-SINCE REMOVED. RIGHT BREAST BIOPSY, TOTAL LT KNEE ; LT FOOT , LARA INGUINAL HERNIA, PERCUTANEOUS NEPHROLITHOTOMY. BILATERAL hand surgery. , back procedure for nerve endings and [facility], colonoscopy.ESOPHGEAL DILATION Past Anesthesia/Blood Transfusion Reactions: Motion Sickness Additional Past Anesthesia/Blood Transfusion Reaction / Comment(s): NEVER HAD ANY BLOOD TRANSFUSIONS Past Psychological History: No Psychological Hx Reported Smoking Status: Former smoker Past Alcohol Use History: None Reported Past Drug Use History: None Reported - Past Family History Father Family Medical History: Cancer Mother Family Medical History: Liver Disease Additional Family Medical History / Comment(s): Mother had hepatitis. General Exam Limitations: no limitations General appearance: alert, in no apparent distress Head exam: Present: atraumatic, normocephalic Eye exam: Present: normal appearance. Absent: scleral icterus, conjunctival injection ENT exam: Present: normal oropharynx Neck exam: Present: normal inspection, full ROM. Absent: meningismus, lymphadenopathy Respiratory exam: Present: wheezes, chest wall tenderness. Absent: respiratory distress, rales, rhonchi, stridor, accessory muscle use, decreased breath sounds Cardiovascular Exam: Present: regular rate, normal rhythm, normal heart sounds. Absent: systolic murmur, diastolic murmur, rubs, gallop GI/Abdominal exam: Present: soft. Absent: distended, tenderness, guarding, rebound Extremities exam: Present: normal inspection, normal capillary refill. Absent: pedal edema, calf tenderness Back exam: Present: normal inspection. Absent: CVA tenderness (R), CVA tenderness (L) Neurological exam: Present: alert Skin exam: Present: warm, dry, intact, normal color. Absent: rash Course Vital Signs 12/07/17 12/07/17 12/07/17 21:11 22:20 22:27 Temperature 98.0 F Pulse Rate 89 85 84 Respiratory 18 16 16 Rate Blood Pressure 153/69 O2 Sat by Pulse 96 Oximetry Medical Decision Making - Medical Decision Making Further history from the patient reveals that he did have a chest x-ray performed at the urgent care clinic and that it reportedly showed a right sided infiltrate. The patient is sent for repeat chest x-ray which does appear to show probable clearing of the infiltrate as the lungs are interpreted as being clear, both by myself and by the radiologist. The exam is consistent with reactive airway, as the patient has some diffuse wheezing. There was improvement following the first treatment. The patient was not feeling back to baseline however and a second treatment is given. The patient will have course of prednisone, will finish his course of Levaquin, and follow-up. Discussed appropriate further care and follow-up as well as return parameters. Disposition Clinical Impression: Reactive airway disease Disposition: HOME SELF-CARE Condition: Good Instructions: Reactive Airways Disease (ED) Prescriptions: predniSONE 20 mg PO BID #8 tab Referrals: Vinny Pascal DO [Primary Care Provider] - 1-2 days
[2017-12-07] MEDS ORDERED: predniSONE 20 MG TAB PO STA (22:53)
[2017-12-07 23:20] VITALS: BP 133/75; PULSE 78; RESP 18; TEMP 98
== END 2017-12-07 23:19 | disposition home or self-care (01) ==
LOC: EC 21:06
DX: J45.909 Unspecified asthma, uncomplicated (principal); E11.9 Type 2 diabetes mellitus without complications; K21.9 Gastro-esophageal reflux disease without esophagitis; I10 Essential (primary) hypertension; N42.9 Disorder of prostate, unspecified; Z95.5 Presence of coronary angioplasty implant and graft; Z87.891 Personal history of nicotine dependence; Z79.82 Long term (current) use of aspirin; Z79.84 Long term (current) use of oral hypoglycemic drugs; Z79.899 Other long term (current) drug therapy; Z88.1 Allergy status to other antibiotic agents; Z88.6 Allergy status to analgesic agent; Z88.0 Allergy status to penicillin; Z88.2 Allergy status to sulfonamides; Z88.8 Allergy status to other drugs, medicaments and biological substances
CPT/HCPCS: 94640 ×2; 71046; 99284; J7512

== ENCOUNTER 2018-02-26 16:43 | Observation (INO) | payer MEDICARE ==
--- NOTE | 2018-02-26 17:05 | ED ---
General Adult HPI - General Chief complaint: Neuro Symptoms/Deficit Stated complaint: Poss mini stroke Time Seen by Provider: 02/26/18 16:57 Source: patient, RN notes reviewed, old records reviewed Mode of arrival: ambulatory Limitations: no limitations - History of Present Illness Initial comments: This is a 59-year-old male the ER for evaluation. This patient presents for evaluation regarding vision loss right eye vision loss. He has seen gluing machine feeder with no improvement. Patient states he called her and draped) over his right eye. Patient states he is concern for stroke, other doctors that he is seen at concern for stroke and patient comes in for evaluation regarding that today. Patient does have pain painful vision loss of the right eye. No recent travel history no sick contacts no headaches. Patient does have pain surrounding his right eye. - Related Data Home Medications Medication Instructions Recorded Confirmed Temazepam [Restoril] 30 mg PO HS 03/05/15 02/26/18 Citalopram Hydrobromide [CeleXA] 40 mg PO DAILY 02/05/16 02/26/18 Morphine Sulfate Ir [MSIR] 15 mg PO BID PRN 02/05/16 02/26/18 Levocetirizine Dihydrochloride 5 mg PO HS 07/13/16 02/26/18 [Xyzal] Tamsulosin [Flomax] 0.4 mg PO HS 07/13/16 02/26/18 Hyoscyamine Sulfate [Levsin-Sl] 0.125 mg SL AC-TID PRN 08/04/16 02/26/18 metFORMIN HCL [Glucophage Xr] 500 mg PO BID 11/27/16 02/26/18 Aspirin EC [Ecotrin Low Dose] 81 mg PO QAM 12/22/16 02/26/18 Omeprazole 40 mg PO BID 12/22/16 02/26/18 Lisinopril [Zestril] 2.5 mg PO QAM 05/02/17 02/26/18 Azelastine HCl [Astepro] 2 spray NASAL BID 12/07/17 02/26/18 ALPRAZolam [Xanax] 0.25 mg PO DAILY PRN 02/26/18 02/26/18 Focus Maculapro 1 tab PO QAM 02/26/18 02/26/18 Ibuprofen [Motrin] 800 mg PO Q8H PRN 02/26/18 02/26/18 Allergies Allergy/AdvReac Type Severity Reaction Status Date / Time cephalexin monohydrate Allergy Rash/Hives Verified 02/26/18 17:19 [From Keflex] clarithromycin [From Biaxin] Allergy Unknown Verified 02/26/18 17:19 gentamicin [Gentamicin] Allergy Unknown Verified 02/26/18 17:19 naproxen Allergy Unknown Verified 02/26/18 17:19 Penicillins Allergy Anaphylaxis Verified 02/26/18 17:19 Sulfa (Sulfonamide Allergy Rash/Hives Verified 02/26/18 17:19 Antibiotics) promethazine AdvReac Nausea & Verified 02/26/18 17:19 Vomiting Review of Systems ROS Statement: Those systems with pertinent positive or pertinent negative responses have been documented in the HPI. ROS Other: All systems not noted in ROS Statement are negative. Past Medical History Past Medical History: Chest Pain / Angina, Diabetes Mellitus, GERD/Reflux, Hypertension, Prostate Disorder Additional Past Medical History / Comment(s): migraines, diverticulosis, kidney stones, neurpathy hands & feet, low BACK PAIN-sees Dr. Jackson, History of Any Multi-Drug Resistant Organisms: None Reported Past Surgical History: Cholecystectomy, Heart Catheterization, Hernia Repair, Orthopedic Surgery Additional Past Surgical History / Comment(s): EGD , Laparoscopic Mireya Fundoplasty, lap uma, CYSTOSCOPY AND LITHOTRIPSY LT URETERAL STENT-SINCE REMOVED. RIGHT BREAST BIOPSY, TOTAL LT KNEE ; LT FOOT , LARA INGUINAL HERNIA, PERCUTANEOUS NEPHROLITHOTOMY. BILATERAL hand surgery. , back procedure for nerve endings and [facility], colonoscopy.ESOPHGEAL DILATION, eye sx Past Anesthesia/Blood Transfusion Reactions: Motion Sickness Additional Past Anesthesia/Blood Transfusion Reaction / Comment(s): NEVER HAD ANY BLOOD TRANSFUSIONS Past Psychological History: No Psychological Hx Reported Smoking Status: Former smoker Past Alcohol Use History: None Reported Past Drug Use History: None Reported - Past Family History Father Family Medical History: Cancer Mother Family Medical History: Liver Disease Additional Family Medical History / Comment(s): Mother had hepatitis. General Exam Limitations: no limitations General appearance: alert, in no apparent distress Head exam: Present: atraumatic, normocephalic, normal inspection Eye exam: Present: normal appearance, PERRL, EOMI. Absent: scleral icterus, conjunctival injection, periorbital swelling ENT exam: Present: normal exam, mucous membranes moist Neck exam: Present: normal inspection. Absent: tenderness, meningismus, lymphadenopathy Respiratory exam: Present: normal lung sounds bilaterally. Absent: respiratory distress, wheezes, rales, rhonchi, stridor Cardiovascular Exam: Present: regular rate, normal rhythm, normal heart sounds. Absent: systolic murmur, diastolic murmur, rubs, gallop, clicks GI/Abdominal exam: Present: soft, normal bowel sounds. Absent: distended, tenderness, guarding, rebound, rigid Extremities exam: Present: normal inspection, full ROM, normal capillary refill. Absent: tenderness, pedal edema, joint swelling, calf tenderness Back exam: Present: normal inspection Neurological exam: Present: alert, oriented X3, CN II-XII intact Psychiatric exam: Present: normal affect, normal mood Skin exam: Present: warm, dry, intact, normal color. Absent: rash Course Vital Signs 02/26/18 16:50 Temperature 100 F H Pulse Rate 85 Respiratory 18 Rate Blood Pressure 113/63 O2 Sat by Pulse 95 Oximetry - Reevaluation(s) Reevaluation #1: 02/26/18 17:45 Medical record is reviewed Medical Decision Making - Medical Decision Making 68 male the ER for evaluation of TIA, will admit for neurological evaluation Disposition Referrals: Vinny Pascal DO [Primary Care Provider] - 1-2 days
[2018-02-26] MEDS ORDERED: SODIUM CHLORIDE 0.9% 1,000 ML IV STA (17:42)
[2018-02-26] MEDS ORDERED: ASPIRIN 325 MG TAB PO STA (17:42)
[2018-02-26] MEDS ORDERED: DEXAMETHASONE SOD PHOSPHATE 10 MG/ML 1 ML VIAL IV STA (17:44)
[2018-02-26] MEDS ORDERED: MORPHINE SULFATE 2 MG/ML SYRINGE IVP PRN (17:44)
[2018-02-26] MEDS ORDERED: MORPHINE SULFATE 2 MG/ML SYRINGE IVP STA (17:44)
[2018-02-26] MEDS ORDERED: DEXAMETHASONE SOD PHOSPHATE 4 MG/ML 1 ML VIAL IV PRN (17:44)
[2018-02-26 18:36] LABS: INR 1.1 (<1.2); Prothrombin Time 10.8 sec (9.0-12.0)
[2018-02-26 18:37] LABS: Creatine Kinase 363 U/L (55-170)
[2018-02-26 18:38] LABS: ALT 44 U/L (21-72); AST 33 U/L (17-59); Albumin 4.3 g/dL (3.5-5.0); Alkaline Phosphatase 354 U/L (38-126); Anion Gap 14 mmol/L; Blood Urea Nitrogen 21 mg/dL (9-20); C Reactive Protein 8.6 mg/L (<10.0); Carbon Dioxide 24 mmol/L (22-30); Chloride 106 mmol/L (98-107); Glucose 99 mg/dL (74-99); Potassium 4.2 mmol/L (3.5-5.1); Sodium 144 mmol/L (137-145); Total Bilirubin 0.5 mg/dL (0.2-1.3); Total Protein 6.4 g/dL (6.3-8.2)
[2018-02-26 18:39] LABS: Anisocytosis Moderate; Basophils # (A) 0.2 k/uL (0-0.2); Basophils % (A) 1 %; Eosinophils # (A) 0.3 k/uL (0-0.7); Eosinophils % (A) 3 %; HCT 37.9 % (39.0-53.0); HGB 12.3 gm/dL (13.0-17.5); Hypochromasia Slight; Lymphocytes # (A) 2.8 k/uL (1.0-4.8); Lymphocytes % (A) 21 %; MCH 30.9 pg (25.0-35.0); MCHC 32.4 g/dL (31.0-37.0); MCV 95.5 fL (80.0-100.0); Macrocytosis Slight; Mean Platelet Volume 8.4; Microcytosis Slight; Monocytes # (A) 1.1 k/uL (0-1.0); Monocytes % (A) 8 %; Neutrophils # (A) 8.7 k/uL (1.3-7.7); Neutrophils % (A) 64 %; Platelet Count 304 k/uL (150-450); RBC 3.97 m/uL (4.30-5.90); RDW 22.2 % (11.5-15.5); WBC 13.6 k/uL (3.8-10.6)
[2018-02-26 18:49] LABS: Troponin I <0.012 ng/mL (0.000-0.034)
[2018-02-26 18:52] LABS: Creatine Kinase MB 6.8 ng/mL (0.0-2.4)
[2018-02-26 18:57] LABS: Glucose,Whole Blood 100 mg/dL (75-99)
--- NOTE | 2018-02-26 19:15 | CT ---
EXAMINATION TYPE: CT brain wo con for TPA DATE OF EXAM: 02/26/2018 COMPARISON: NONE INDICATION: RIGHT EYE PAIN AND VISION CHANGES DLP: 1012.1 mGycm, Automated exposure control for dose reduction was used. CONTRAST: None CT of the brain is performed utilizing 3 mm thick sections through the posterior fossa and 3 mm thick sections through the remaining calvarium. Study is performed within 24 hours of arrival to the hosp ital. No abnormal hyperdensity is present to suggest an acute intracranial hemorrhage. No mass lesion is evident. No acute infarcts are evident. There is mild periventricular white matter hypodensity, likely on the basis of white matter ischemic changes. Ventricles and sulci are mildly prominent for the patient age. Paranasal sinuses and mastoid air cells within the [id number] are clear. IMPRESSIONS: 1. No acute intracranial process.
[2018-02-26 19:43] LABS: Erythrocyte Sedimentation Rate 8 mm/hr (0-15)
--- NOTE | 2018-02-26 19:48 | CT ---
EXAMINATION TYPE: CT angio head neck DATE OF EXAM: 02/26/2018 HISTORY: Right eye pain and vision changes COMPARISON: NONE CT DLP: 343.4 mGycm. Automated Exposure Control for Dose Reduction was Utilized. TECHNIQUE: CTA scan of the neck is performed with IV Contrast, patient injected with 65 mL of Isovue 370, axial images are obtained, coronal and sagittal reformatted images are reviewed. Three-D recons tructed images are created on an independent workstation and reviewed. FINDINGS: Carotid/Vascular Structures: There is a three-vessel arch. The internal carotid arteries bifurcate A1 and M1 segments. The right A1 segment is slightly hypoplastic. The A2 segments are normal. The anter ior communicating artery is widely patent. Right posterior communicating artery is patent. Posterior cerebral vasculature is normal. Vertebral basilar arteries appear within normal limits. Carotid bifurcations appear widely patent. No significant stenosis is evident. Other: Thyroid is heterogenous and slightly prominent. IMPRESSION: 1. Carotid bifurcations without significant flow-limiting stenosis. 2. [place] is within normal variation.
[2018-02-26] MEDS: SODIUM CHLORIDE 0.9% 1,000 ML IV STA ×2 (20:58→21:14)
[2018-02-26] MEDS ORDERED: KETOROLAC 30 MG/ML 1 ML VIAL IVP SCH (21:00)
[2018-02-26] MEDS: ATORVASTATIN 80 MG TAB PO SCH (21:08)
[2018-02-26] MEDS: SODIUM CHLORIDE 0.9% 1,000 ML IV SCH (21:14)
[2018-02-26 21:26] LABS: Glucose,Whole Blood 133 mg/dL (75-99)
[2018-02-26 21:46] VITALS: BMI 27.3
[2018-02-26] MEDS ORDERED: HYOSCYAMINE ORAL DROPS 1.875 MG/15 ML BOTTLE SUBLINGUAL PRN (23:52)
[2018-02-27] MEDS: TEMAZEPAM 30 MG CAP PO SCH ×2 (00:49→22:03)
[2018-02-27] MEDS: AZELASTINE 137MCG/SPRAY NASAL SCH ×3 (00:49→19:57)
[2018-02-27] MEDS: PANTOPRAZOLE 40 MG TABLET PO SCH ×3 (00:50→19:58)
[2018-02-27] MEDS: metFORMIN 500 MG TAB PO SCH ×3 (00:50→19:56)
[2018-02-27] MEDS: TAMSULOSIN 0.4 MG CAP.ER.24H PO SCH ×2 (00:50→19:57)
[2018-02-27] MEDS: LORATADINE 10 MG TAB PO SCH ×2 (00:50→19:56)
[2018-02-27] MEDS: KETOROLAC 30 MG/ML 1 ML VIAL IVP PRN ×2 (02:14→17:00)
[2018-02-27] MEDS: SODIUM CHLORIDE 0.9% 1,000 ML IV SCH ×2 (05:14→17:50)
[2018-02-27 05:47] LABS: Glucose,Whole Blood 197 mg/dL (75-99)
[2018-02-27] MEDS: CITALOPRAM HYDROBROMIDE 20 MG TAB PO SCH (08:25)
[2018-02-27] MEDS: LISINOPRIL 2.5 MG TAB PO SCH (08:25)
[2018-02-27] MEDS: VIT A,C & E-LUTEIN-MINERALS 1 EACH TAB PO SCH (08:26)
[2018-02-27] MEDS ORDERED: ASPIRIN 81 MG PO SCH (09:00)
[2018-02-27] MEDS ORDERED: ASPIRIN 325 MG TAB PO SCH (09:00)
[2018-02-27] MEDS ORDERED: IBUPROFEN 800 MG TAB PO PRN (09:28)
[2018-02-27] MEDS: MORPHINE SULFATE IR 15 MG TABLET PO PRN (10:15)
[2018-02-27 10:40] LABS: ALT 37 U/L (21-72); AST 26 U/L (17-59); Alkaline Phosphatase 342 U/L (38-126); Anion Gap 14 mmol/L; Blood Urea Nitrogen 30 mg/dL (9-20); Calcium 9.8 mg/dL (8.4-10.2); Carbon Dioxide 24 mmol/L (22-30); Chloride 105 mmol/L (98-107); Glucose 156 mg/dL (74-99); Potassium 4.9 mmol/L (3.5-5.1); Sodium 143 mmol/L (137-145); Total Bilirubin 0.5 mg/dL (0.2-1.3)
[2018-02-27 11:19] LABS: Anisocytosis Moderate; Basophils # (A) 0.1 k/uL (0-0.2); Basophils % (A) 0 %; Eosinophils % (A) 0 %; HGB 11.8 gm/dL (13.0-17.5); Hypochromasia Slight; Lymphocytes # (A) 1.5 k/uL (1.0-4.8); Lymphocytes % (A) 10 %; MCH 30.7 pg (25.0-35.0); MCV 96.1 fL (80.0-100.0); Macrocytosis Slight; Mean Platelet Volume 8.8; Microcytosis Slight; Monocytes # (A) 1.2 k/uL (0-1.0); Monocytes % (A) 8 %; Neutrophils % (A) 80 %; Platelet Count 299 k/uL (150-450); RBC 3.85 m/uL (4.30-5.90); RDW 22.3 % (11.5-15.5)
--- NOTE | 2018-02-27 11:42 | P.HPIM ---
History of Present Illness H&P Date: 02/27/18 Chief Complaint: Decreased vision and pain of right eye 68-year-old male who presented to the emergency room with a chief complaint of pain to his right eye along with decreased vision. The patient reports intermittent periods of pain to his right eye that he describes as a shooting pain. He states he is also having intermittent vision changes. He states there is nothing that brings on these events. He states he can just be sitting at home reading or watching TV when all of a sudden his right eye feels like a window shade is being puled down over his eye and his loses vision in that eye. 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 He reports he has undergone procedures for removal of CA. He has been seeing Dr. Vazquez, energy administrator, on an outpatient basis. The patient reports that Dr. Vazquez is aware of his symptoms of eye pain and decreased vision and apparently told the patient he does not have any further recommendations. The patient denies any new numbness or tingling of upper or lower extremities or increase in severity. He does report neuropathy to his bilateral hands and feet. He denies motor weakness of upper or lower extremities. He denies changes in speech. He denies difficulty swallowing. He denies chest pain or pressure. Denies shortness of breath. The patient also has a history of diabetes mellitus, GERD, hypertension, and kidney stones. The patient has chronic back pain and sees Dr. Jackson for pain management. He is prescribed morphine outpatient per Dr. Jackson CT brain: Negative for an acute intracranial process Angiography CT: Carotid bifurcations without significant flow limiting stenosis. [place] is within normal variation. Laboratory data: WBC 13.6. Hemoglobin 12.3. Platelet count 304. Sodium 144. Potassium 4.2. BUN 21. Creatinine 0.80 glucose 99. Troponin: Negative 1. C-reactive protein 8.6. ESR 8.0 The patient was admitted to the hospital under the care of Dr. Pascal. Review of Systems Those systems with pertinent positive or pertinent negative responses have been documented in the HPI Past Medical History Past Medical History: Chest Pain / Angina, Diabetes Mellitus, GERD/Reflux, Hypertension, Prostate Disorder Additional Past Medical History / Comment(s): migraines, diverticulosis, kidney stones, neurpathy hands & feet, low BACK PAIN-sees Dr. Jackson, History of Any Multi-Drug Resistant Organisms: None Reported Past Surgical History: Cholecystectomy, Heart Catheterization, Hernia Repair, Orthopedic Surgery Additional Past Surgical History / Comment(s): EGD , Laparoscopic Mireya Fundoplasty, lap uma, CYSTOSCOPY AND LITHOTRIPSY LT URETERAL STENT-SINCE REMOVED. RIGHT BREAST BIOPSY, TOTAL LT KNEE ; LT FOOT , LARA INGUINAL HERNIA, PERCUTANEOUS NEPHROLITHOTOMY. BILATERAL hand surgery. , back procedure for nerve endings and [facility], colonoscopy.ESOPHGEAL DILATION, eye sx Past Anesthesia/Blood Transfusion Reactions: No Reported Reaction Additional Past Anesthesia/Blood Transfusion Reaction / Comment(s): NEVER HAD ANY BLOOD TRANSFUSIONS Past Psychological History: No Psychological Hx Reported Additional Psychological History / Comment(s): . Smoking Status: Former smoker Past Alcohol Use History: None Reported Additional Past Alcohol Use History / Comment(s): STARTED SMOKING AT AGE 12, SMOKED 1 PPD, QUIT 2012 Past Drug Use History: None Reported - Past Family History Father Family Medical History: Cancer Mother Family Medical History: Liver Disease Additional Family Medical History / Comment(s): Mother had hepatitis. Medications and Allergies Home Medications Medication Instructions Recorded Confirmed Type Temazepam [Restoril] 30 mg PO HS 03/05/15 02/26/18 History Citalopram Hydrobromide [CeleXA] 40 mg PO DAILY 02/05/16 02/26/18 History Morphine Sulfate Ir [MSIR] 15 mg PO BID PRN 02/05/16 02/26/18 History Levocetirizine Dihydrochloride 5 mg PO HS 07/13/16 02/26/18 History [Xyzal] Tamsulosin [Flomax] 0.4 mg PO HS 07/13/16 02/26/18 History Hyoscyamine Sulfate [Levsin-Sl] 0.125 mg SL AC-TID PRN 08/04/16 02/26/18 History metFORMIN HCL [Glucophage Xr] 500 mg PO BID 11/27/16 02/26/18 History Aspirin EC [Ecotrin Low Dose] 81 mg PO QAM 12/22/16 02/26/18 History Omeprazole 40 mg PO BID 12/22/16 02/26/18 History Lisinopril [Zestril] 2.5 mg PO QAM 05/02/17 02/26/18 History Azelastine HCl [Astepro] 2 spray NASAL BID 12/07/17 02/26/18 History ALPRAZolam [Xanax] 0.25 mg PO DAILY PRN 02/26/18 02/26/18 History Focus Maculapro 1 tab PO QAM 02/26/18 02/26/18 History Ibuprofen [Motrin] 800 mg PO Q8H PRN 02/26/18 02/26/18 History Allergies Allergy/AdvReac Type Severity Reaction Status Date / Time cephalexin monohydrate Allergy Rash/Hives Verified 02/26/18 17:19 [From Keflex] clarithromycin [From Biaxin] Allergy Unknown Verified 02/26/18 17:19 gentamicin [Gentamicin] Allergy Unknown Verified 02/26/18 17:19 naproxen Allergy Unknown Verified 02/26/18 17:19 Penicillins Allergy Anaphylaxis Verified 02/26/18 17:19 Sulfa (Sulfonamide Allergy Rash/Hives Verified 02/26/18 17:19 Antibiotics) promethazine AdvReac Nausea & Verified 02/26/18 17:19 Vomiting Physical Exam Vitals: Vital Signs Temp Pulse Pulse Resp BP BP Pulse Ox 02/27/18 08:10 97.1 F L 90 12 127/76 97 02/27/18 04:00 97.5 F L 76 18 135/70 95 02/27/18 00:00 96.9 F L 78 18 126/66 93 L 02/26/18 22:27 97.3 F L 77 18 141/93 95 02/26/18 21:00 97.3 F L 77 18 141/93 95 02/26/18 20:06 74 20 120/67 94 L 02/26/18 18:49 69 18 123/62 94 L 02/26/18 18:06 74 18 95 02/26/18 16:50 100 F H 85 18 113/63 95 Intake and Output 02/26/18 02/27/18 02/27/18 22:59 06:59 14:59 Intake Total 400 350 Output Total 350 Balance -350 400 350 Intake: Intake, IV Titration 400 Amount Sodium Chloride 0.9% 1, 400 000 ml @ 100 mls/hr IV . Q10H NILS Rx#:[id number] Oral 350 Output: Urine 350 Other: Voiding Method Urinal Urinal Urinal # Voids 2 Weight 79.3 kg 79.3 kg GENERAL: This is a 68-year-old male in no apparent distress at the time of examination. Pleasant and cooperative. HEENT: Head is atraumatic, normocephalic. Pupils are equal, round, and reactive to light. Sclerae anicteric. Conjunctivae are clear. Mucus membranes of the mouth are moist. Neck is supple. RESPIRATORY: Clear to ausculation. No wheezes, rales, or rhonchi. No use of accessory muscles. Patient maintaining oxygen saturation greater than 92%. No chest wall tenderness is noted on palpation or with deep breathing. CARDIOVASCULAR: Regular rate and rhythm. S1 and S2 noted. No systolic or diastolic murmur auscultated. No JVD noted. No S3 or S4 noted. GASTROINTESTINAL: No distention noted. Abdomen soft and round. Normal active bowel sounds auscultated x 4 quadrants. No pain or tenderness noted upon palpation. INTEGUMENTARY: No cyanosis. No jaundice. No rashes noted. No cellulitis noted. EXTREMITIES: 2+ peripheral pulses. No evidence of peripheral edema. No calf tenderness noted. NEUROLOGIC: Cranial nerves II-XII intact. PSYCHIATRIC: Awake, alert, and oriented X 3. Appropriate affect. Intact judgement and insight. Results CBC & Chem 7: 02/27/18 09:28 02/27/18 09:28 Labs: Abnormal Lab Results - Last 24 Hours (Table) 02/26/18 02/26/18 02/26/18 Range/Units 18:05 18:05 18:05 WBC 13.6 H (3.8-10.6) k/uL RBC 3.97 L (4.30-5.90) m/uL Hgb 12.3 L (13.0-17.5) gm/dL Hct 37.9 L (39.0-53.0) % RDW 22.2 H (11.5-15.5) % Neutrophils # 8.7 H (1.3-7.7) k/uL Monocytes # 1.1 H (0-1.0) k/uL BUN 21 H (9-20) mg/dL Glucose (74-99) mg/dL POC Glucose (mg/dL) (75-99) mg/dL Alkaline Phosphatase 354 H (38-126) U/L Total Creatine Kinase 363 H (55-170) U/L CK-MB (CK-2) 6.8 H* (0.0-2.4) ng/mL Total Protein (6.3-8.2) g/dL 02/26/18 02/26/18 02/27/18 Range/Units 18:53 21:24 05:46 WBC (3.8-10.6) k/uL RBC (4.30-5.90) m/uL Hgb (13.0-17.5) gm/dL Hct (39.0-53.0) % RDW (11.5-15.5) % Neutrophils # (1.3-7.7) k/uL Monocytes # (0-1.0) k/uL BUN (9-20) mg/dL Glucose (74-99) mg/dL POC Glucose (mg/dL) 100 H 133 H 197 H (75-99) mg/dL Alkaline Phosphatase (38-126) U/L Total Creatine Kinase (55-170) U/L CK-MB (CK-2) (0.0-2.4) ng/mL Total Protein (6.3-8.2) g/dL 02/27/18 Range/Units 09:28 WBC (3.8-10.6) k/uL RBC (4.30-5.90) m/uL Hgb (13.0-17.5) gm/dL Hct (39.0-53.0) % RDW (11.5-15.5) % Neutrophils # (1.3-7.7) k/uL Monocytes # (0-1.0) k/uL BUN 30 H (9-20) mg/dL Glucose 156 H (74-99) mg/dL POC Glucose (mg/dL) (75-99) mg/dL Alkaline Phosphatase 342 H (38-126) U/L Total Creatine Kinase (55-170) U/L CK-MB (CK-2) (0.0-2.4) ng/mL Total Protein 6.0 L (6.3-8.2) g/dL Thrombosis Risk Factor Assmnt - Choose All That Apply Any of the Below Risk Factors Present?: Yes Each Factor Represents 1 point: Obesity (BMI >25) Other Risk Factors: Yes Each Risk Factor Represents 2 Points: Age 61-74 years Thrombosis Risk Factor Assessment Total Risk Factor Score: 3 Thrombosis Risk Factor Assessment Level: Moderate Risk Assessment and Plan Plan: ASSESSMENT: Right eye pain with intermittent loss of vision, etiology unclear at this time, cannot exclude TIA, however may be secondary to basal cell carcinoma of face and eyelid, s/p surgical removal of CA Diabetes mellitus, type II History of peripheral neuropathy secondary to diabetes mellitus Hypertension Chronic back pain Gastroesophageal reflux disease History of nicotine dependence, in remission, patient quit smoking in 2012 after smoking 1 pack per day since age of 12 PLAN: Neurology on consult. Await further recommendations and input. Continue neuro checks Home meds as appropriate Monitor labs GI prophylaxis: Protonix 40 mg PO BID DVT prophylaxis: VARSHA hose to bilateral lower extremities Monitor vital signs and address as appropriate Discharge planning: Patient to return home when stable Further recommendations pending patient's course Nurse practitioner note has been reviewed by physician. Signing provider agrees with the documented findings, assessment, and plan of care.
[2018-02-27] MEDS: INSULIN ASPART 100 UNIT/ML 1 ML 10 ML VIAL SQ SCH ×3 (11:50→22:03)
[2018-02-27 12:00] LABS: Hemoglobin A1C 6.6 % (4.0-6.0)
[2018-02-27 12:01] LABS: Glucose,Whole Blood 132 mg/dL (75-99)
[2018-02-27 12:12] LABS: Erythrocyte Sedimentation Rate 9 mm/hr (0-15)
[2018-02-27] MEDS ORDERED: MORPHINE SULFATE 2 MG/ML SYRINGE IVP STA ×2 (12:44→18:57)
[2018-02-27 16:31] LABS: Glucose,Whole Blood 139 mg/dL (75-99)
[2018-02-27] MEDS: ATORVASTATIN 80 MG TAB PO SCH (19:56)
[2018-02-27 21:08] LABS: Glucose,Whole Blood 196 mg/dL (75-99)
--- NOTE | 2018-02-27 22:04 | CONS ---
CONSULTATION DATE OF SERVICE: 02/27/2018. CHIEF COMPLAINT: Visual changes. HISTORY OF PRESENT ILLNESS: The patient is a pleasant 68-year-old male who is being evaluated by the neurology service per the request of Dr. Vinny Pacsal for right eye visual changes. The patient was brought into [facility] Emergency Room with complaints of decreased vision in his right eye and right eye pain. His symptoms started a few weeks ago, but have been significantly worse lately. The patient was recently diagnosed with skin cancer around his right eyelid. It appears that he is describing melanoma, but the exact diagnosis is unknown at this time. He was seen by Dr. London, who did perform a biopsy, which confirmed the malignant type. He was then seen by Dr. Vazquez, who did cancer resection. The patient states that he is scheduled for more resection. Since then, he has been having severe pain around his right eye. Over the past few days, he has also described episodes of transient visual loss involving the right eye. He denies any double vision. A CT scan of the brain was done which showed small-vessel ischemic disease. A CT angiogram of the brain and neck were also done which showed no evidence of any significant stenosis or aneurysms. His cardiac enzymes showed normal troponin, but his CK-MB was slightly elevated at 6.8 and CPK was elevated at 363. His CBC showed leukocytosis at 15.0 and anemia with hemoglobin of 11.8 and hematocrit of 37%. The patient rates his pain at this time at 9/10 in intensity. He had received a dose of morphine IV in the emergency room which did give him moderate relief, according to him. PAST MEDICAL HISTORY: Skin cancer, diabetes, gastroesophageal reflux disease, hypertension, migraine headaches, diverticulosis, nephrolithiasis, chronic low back pain, skin resection of cancer, knee replacement surgeries, hernia repair, history of cholecystectomy. SOCIAL HISTORY: The patient is a former smoker. He denies any alcohol or drug use. FAMILY HISTORY: Positive for cancer. HOME MEDICATIONS: Reviewed in the chart. ALLERGIES: KEFLEX, BACTRIM, SULFA DRUGS, PENICILLIN, NAPROXEN, GENTAMICIN, BIAXIN, PROMETHAZINE. REVIEW OF SYSTEMS: CONSTITUTIONAL: Negative. EYES: As mentioned above. ENT: Negative. CARDIOVASCULAR: Positive for occasional chest pain. RESPIRATORY: Negative. NEUROLOGICAL: As mentioned above. GASTROINTESTINAL: Positive for occasional heartburn. GENITOURINARY: Negative. DERMATOLOGICAL: As mentioned above. PSYCHIATRIC: Negative. ENDOCRINE: Positive for diabetes. PHYSICAL EXAM: Vital signs show a temperature 97.4, pulse 88, respiration 14, blood pressure 124/68. GENERAL APPEARANCE: The patient is a well-developed male who appears to be in mild distress due to pain. HEENT: Normocephalic, atraumatic except for bruising seen along the right eyelid from postsurgical changes. Tenderness to palpation is felt along the right eye and the area surrounding the right eye. No facial asymmetry is seen. NECK: Supple with no masses felt. CARDIOVASCULAR: Regular rate and rhythm. ABDOMEN: Nontender, nondistended. Extremities showed no edema or clubbing. NEUROLOGICAL: The patient is awake and oriented x3. Speech and language are normal. Strength is full in all 4 extremities. Sensory was normal to light touch in all 4 extremities. No facial asymmetry is seen on cranial nerve testing. No tremors or seizure-like activity is seen. IMPRESSION: 1. Right eye visual changes. 2. Head pain. 3. Right eye pain. 4. Small vessel ischemic disease. RECOMMENDATION: The patient's recurrent episodes of visual loss involving the right eye could be due to temporal arteritis, as he does also have head pain on that side. I will order a sed rate and a C-reactive protein level. If these levels are significantly elevated, the patient will need to be started on IV steroids. In the differential is also recurrent transient ischemic attack involving the right ophthalmic artery, although this is less likely. The patient states he does take aspirin 81 mg daily at home, but this has not been started on this admission. I will restart his aspirin at 81 mg daily. I reviewed with him the result of his CT scan of the brain and CT angiogram of the brain and neck and he was reassured from that standpoint. His transient visual loss could also be due to ophthalmological etiology. I will consult Dr. Vazquez to evaluate the patient, as he is known to him. Until then, I will give him a single dose of morphine IV to help with his pain. Further analgesics should be addressed by Ophthalmology. Continue neuro checks. I will continue to follow with you. Further recommendations to follow. Thank you, Dr. Pascal, for allowing me to participate in the care of your patient. If you have any questions, please feel free to contact me. MMODL / IJN: [id number] /
--- NOTE | 2018-02-27 22:04 | CONS ---
CONSULTATION CHIEF COMPLAINT: Pain, right temporal area for the loss 10 days. HISTORY OF PRESENT ILLNESS: The patient is complaining of pain in the right temporal area which started like at 10- 15 days ago with soreness of the right mandaeism. The patient denies any visual disturbance. The patient is diabetic. REVIEW OF SYSTEMS: Reviewed. EYE EXAMINATION: Vision is 20/25 both eyes, reading chart with reading glasses. Tension applanation 22 mmHg right eye and 18 mmHg left eye. Pupils are equal and reactive. Lids show ecchymosis in between bracket bruises from a previous cancer removal of the upper and lower lids. The anterior chamber is very shallow in both eyes. I did not dilate the pupil today to do gonioscopy in the office to be sure that patient has no narrow angles. There is no need to dilate today because the vision also is 20/25 both eyes. Confrontation was normal. Extraocular motility normal. ASSESSMENT: 1. Right temporal arteritis. 2. Narrow angles. 3. History of skin cancer excision of upper and lower lids in our office. PLAN: I believe this is most probably temporal arteritis. I advised Dr. Betancourt to perform a biopsy of the right temporal artery. I started the patient on prednisone 60 mg once a day for 1 week, then to decrease the dose to 40 mg once a day for 1 week. The patient is diabetic, so a close monitoring of the blood sugar should be performed. I will examine the patient on Sunday in the office if he is discharged. If not, to arrange an appointment on Sunday or Sunday. NKECHI / VINCENTN: [id number] /
[2018-02-28 05:57] LABS: Glucose,Whole Blood 125 mg/dL (75-99)
[2018-02-28] MEDS: INSULIN ASPART 100 UNIT/ML 1 ML 10 ML VIAL SQ SCH (06:22)
[2018-02-28 08:44] VITALS: BP 147/84; PULSE 71; RESP 20; TEMP 97
[2018-02-28] MEDS: AZELASTINE 137MCG/SPRAY NASAL SCH (08:47)
[2018-02-28] MEDS: CITALOPRAM HYDROBROMIDE 20 MG TAB PO SCH (08:48)
[2018-02-28] MEDS: LISINOPRIL 2.5 MG TAB PO SCH (08:49)
[2018-02-28] MEDS: VIT A,C & E-LUTEIN-MINERALS 1 EACH TAB PO SCH (08:49)
[2018-02-28] MEDS: metFORMIN 500 MG TAB PO SCH (08:50)
[2018-02-28] MEDS: PANTOPRAZOLE 40 MG TABLET PO SCH (08:51)
[2018-02-28] MEDS ORDERED: predniSONE 20 MG TAB PO SCH (09:00)
[2018-02-28] MEDS ORDERED: ASPIRIN 81 MG PO SCH (09:00)
[2018-02-28] MEDS: KETOROLAC 30 MG/ML 1 ML VIAL IVP PRN (09:06)
[2018-02-28] MEDS: SODIUM CHLORIDE 0.9% 1,000 ML IV SCH (09:06)
[2018-02-28] MEDS: MORPHINE SULFATE IR 15 MG TABLET PO PRN (09:07)
--- NOTE | 2018-02-28 10:32 | P.DS ---
Providers Date of admission: 02/26/18 17:43 Expected date of discharge: 02/28/18 Attending physician: Vinny Pascal Consults: 02/26/18 17:43 Consult Physician Routine Consulting Provider: Louise Perdomo Consult Reason/Comments: tia Do you want consulting provider notified?: Yes 02/27/18 19:59 Consult Physician Urgent Consulting Provider: Clemente Vazquez Consult Reason/Comments: Visual changes, patient know to you Do you want consulting provider notified?: Yes, Notify in am Primary care physician: Vinny Pascal [place] [facility] Course: 68-year-old male who presented to the emergency room with a chief complaint of pain to his right eye along with decreased vision. The patient reports intermittent periods of pain to his right eye that he describes as a shooting pain. He states he is also having intermittent vision changes. He states there is nothing that brings on these events. He states he can just be sitting at home reading or watching TV when all of a sudden his right eye feels like a window shade is being puled down over his eye and his loses vision in that eye. 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 He reports he has undergone procedures for removal of CA. He has been seeing Dr. Vazquez, rehab liaison, on an outpatient basis. The patient reports that Dr. Vazquez is aware of his symptoms of eye pain and decreased vision and apparently told the patient he does not have any further recommendations. The patient denies any new numbness or tingling of upper or lower extremities or increase in severity. He does report neuropathy to his bilateral hands and feet. He denies motor weakness of upper or lower extremities. He denies changes in speech. He denies difficulty swallowing. He denies chest pain or pressure. Denies shortness of breath. The patient also has a history of diabetes mellitus, GERD, hypertension, and kidney stones. The patient has chronic back pain and sees Dr. Jackson for pain management. He is prescribed morphine outpatient per Dr. Jackson CT brain: Negative for an acute intracranial process Angiography CT: Carotid bifurcations without significant flow limiting stenosis. [place] is within normal variation. Laboratory data: WBC 13.6. Hemoglobin 12.3. Platelet count 304. Sodium 144. Potassium 4.2. BUN 21. Creatinine 0.80 glucose 99. Troponin: Negative 1. C-reactive protein 8.6. ESR 8.0 The patient was admitted to the hospital under the care of Dr. Pascal. 02/28/2018 Patient seen and examined on rounds with Dr. Pascal. Patient continues to complain of pain of right eye. Patient is receiving morphine sulfate instant release 15 mg by mouth twice a day which is his home medication as prescribed from his pain management doctor, Dr. Jackson. The patient also has Toradol IV push ordered every 6 hours. The patient is requesting multiple doses of IV push morphine and asking for additional pain medications to be prescribed at the time of discharge. Dr. Pascal discussed pain management with patient and the patient was instructed that he will not receive further narcotics at the time of discharge. Dr. Perdomo, neurology, was consulted and evaluated patient yesterday. Dr. Vazquez was also consulted to evaluate patient who thinks patient may have temporal arteritis. The patient was started on oral prednisone. Dr. Betancourt has been consulted to evaluate patient for possible temporal artery biopsy. This consult was discontinued per Dr. Pascal as patients C-reactive protein and sed rate have been within normal limits and the diagnosis of temporal arteritis is unlikely given normal lab results. The patient was deemed stable for discharge per Dr. Pascal. He is to follow up with Dr. Pascal in 1 week. He is to see Dr. Vazquez tomorrow outpatient. He was stable at the time of discharge. DISCHARGE DIAGNOSIS: Right eye pain with intermittent loss of vision, etiology unclear at this time, cannot exclude TIA, however may be secondary to basal cell carcinoma of face and eyelid, s/p surgical removal of CA, temporal arteritis unlikely as CRP and sed rate are within normal limits Diabetes mellitus, type II History of peripheral neuropathy secondary to diabetes mellitus Hypertension Chronic back pain Gastroesophageal reflux disease History of nicotine dependence, in remission, patient quit smoking in 2012 after smoking 1 pack per day since age of 12 Nurse practitioner note has been reviewed by physician. Signing provider agrees with the documented findings, assessment, and plan of care. Plan - Discharge Summary Discharge Rx Participant: No New Discharge Prescriptions: New predniSONE 60 mg PO DAILY #35 tab Continue Temazepam [Restoril] 30 mg PO HS Morphine Sulfate Ir [MSIR] 15 mg PO BID PRN PRN Reason: Pain Citalopram Hydrobromide [CeleXA] 40 mg PO DAILY Levocetirizine Dihydrochloride [Xyzal] 5 mg PO HS Tamsulosin [Flomax] 0.4 mg PO HS Hyoscyamine Sulfate [Levsin-Sl] 0.125 mg SL AC-TID PRN PRN Reason: ABD PAIN metFORMIN HCL [Glucophage Xr] 500 mg PO BID Omeprazole 40 mg PO BID Aspirin EC [Ecotrin Low Dose] 81 mg PO QAM Lisinopril [Zestril] 2.5 mg PO QAM Azelastine HCl [Astepro] 2 spray NASAL BID ALPRAZolam [Xanax] 0.25 mg PO DAILY PRN PRN Reason: FLYING Ibuprofen [Motrin] 800 mg PO Q8H PRN PRN Reason: Pain Focus Maculapro 1 tab PO QAM Discharge Medication List Temazepam [Restoril] 30 mg PO HS 03/05/15 [History] Citalopram Hydrobromide [CeleXA] 40 mg PO DAILY 02/05/16 [History] Morphine Sulfate Ir [MSIR] 15 mg PO BID PRN 02/05/16 [History] Levocetirizine Dihydrochloride [Xyzal] 5 mg PO HS 07/13/16 [History] Tamsulosin [Flomax] 0.4 mg PO HS 07/13/16 [History] Hyoscyamine Sulfate [Levsin-Sl] 0.125 mg SL AC-TID PRN 08/04/16 [History] metFORMIN HCL [Glucophage Xr] 500 mg PO BID 11/27/16 [History] Aspirin EC [Ecotrin Low Dose] 81 mg PO QAM 12/22/16 [History] Omeprazole 40 mg PO BID 12/22/16 [History] Lisinopril [Zestril] 2.5 mg PO QAM 05/02/17 [History] Azelastine HCl [Astepro] 2 spray NASAL BID 12/07/17 [History] ALPRAZolam [Xanax] 0.25 mg PO DAILY PRN 02/26/18 [History] Focus Maculapro 1 tab PO QAM 02/26/18 [History] Ibuprofen [Motrin] 800 mg PO Q8H PRN 02/26/18 [History] predniSONE 60 mg PO DAILY #35 tab 02/28/18 [Rx] Follow up Appointment(s)/Referral(s): Vinny Pascal DO [Primary Care Provider] - 1 Week Clemente Vazquez MD [STAFF PHYSICIAN] - 03/01/18 Discharge Disposition: HOME SELF-CARE
[2018-02-28 12:20] LABS: Glucose,Whole Blood 128 mg/dL (75-99)
== END 2018-02-28 12:55 | disposition home or self-care (01) ==
LOC: EC 16:43 → 6SEL 17:43
PROVIDERS: ADMIT Family Medicine; ATTEND Family Medicine
DX: H53.121 Transient visual loss, right eye (principal); H57.11 Ocular pain, right eye; E11.42 Type 2 diabetes mellitus with diabetic polyneuropathy; I10 Essential (primary) hypertension; G89.29 Other chronic pain; M54.5 Low back pain; K21.9 Gastro-esophageal reflux disease without esophagitis; N42.9 Disorder of prostate, unspecified; K57.90 Diverticulosis of intestine, part unspecified, without perforation or abscess without bleeding; G43.909 Migraine, unspecified, not intractable, without status migrainosus; E66.9 Obesity, unspecified; Z68.27 Body mass index [BMI] 27.0-27.9, adult; D72.829 Elevated white blood cell count, unspecified; D64.9 Anemia, unspecified; R74.8 Abnormal levels of other serum enzymes; I67.82 Cerebral ischemia; Z79.899 Other long term (current) drug therapy; Z79.84 Long term (current) use of oral hypoglycemic drugs; Z79.82 Long term (current) use of aspirin; Z88.0 Allergy status to penicillin; Z88.1 Allergy status to other antibiotic agents; Z88.2 Allergy status to sulfonamides; Z88.6 Allergy status to analgesic agent; Z88.8 Allergy status to other drugs, medicaments and biological substances; Z87.891 Personal history of nicotine dependence; Z87.442 Personal history of urinary calculi; Z85.828 Personal history of other malignant neoplasm of skin; Z96.652 Presence of left artificial knee joint; Z90.49 Acquired absence of other specified parts of digestive tract; Z83.79 Family history of other diseases of the digestive system; Z80.9 Family history of malignant neoplasm, unspecified
CPT/HCPCS: 99285 ×2; 96374 ×2; 96375 ×3; 96361 ×3; 96376 ×2; 96365; 36415; 93005; 80053 ×2; 85652 ×2; 82550; 82553; 84484; 85025 ×2; 85610; 85730; 86140 ×2; 83036; 70496; 70450; 70498; G0378 ×3; J1100; J1885 ×3; J2270 ×2; J7512; Q9967

== ENCOUNTER → 2018-03-25 | Outpatient (CLI) | payer MEDICARE ==
--- NOTE | 2018-03-25 15:43 | XR ---
EXAMINATION TYPE: XR KUB DATE OF EXAM: 03/25/2018 COMPARISON: 01/17/2017 HISTORY: Bilateral flank pain TECHNIQUE: One view abdominal series FINDINGS: The osseous structures are intact. The bowel gas pattern is nonspecific. Lung bases are clear. Exte nsive retained fecal debris. Arthropathy of the hips. Hypertrophic and degenerative change spine. Yousuf cifications along the sacrum on the left likely are vascular. Arthropathy of the hips noted. IMPRESSION: 1. Nonspecific abdomen. Extensive retained fecal debris does obscure the renal outlines. No definite calculi are seen. Calcification is noted previous CT scan likely are obscured by the bowel content.
== END | disposition home or self-care (01) ==
LOC: RADXRMAIN 15:24
PROVIDERS: ATTEND Urology
DX: K59.00 Constipation, unspecified (principal)
CPT/HCPCS: 74018

== ENCOUNTER 2018-03-26 11:01 | Emergency (ER) | payer MEDICARE ==
[2018-03-26 11:10] VITALS: BP 175/67; PULSE 61; RESP 18; TEMP 98
[2018-03-26] MEDS ORDERED: KETOROLAC 30 MG/ML 1 ML VIAL IVP STA (12:08)
[2018-03-26] MEDS ORDERED: SODIUM CHLORIDE 0.9% 500 ML IV STA (12:08)
--- NOTE | 2018-03-26 12:14 | ED ---
General Adult HPI - General Chief complaint: Abdominal Pain Stated complaint: Kidney stone Time Seen by Provider: 03/26/18 11:05 Source: patient, RN notes reviewed Mode of arrival: ambulatory Limitations: no limitations - History of Present Illness Initial comments: This is a 68-year-old male who presents emergency department with past medical history significant for fundoplication surgery as well as a history of kidney stones. Patient comes in because he thinks his kidney stone again. Patient complains of pain in the left CVA area and some left flank pain. Patient states he believes he turned his been discolored as well. Patient states she went and saw urology today and they told him come to the emergency department because of his pain. Patient denies any fever chills. Patient denies dysuria hematuria urinary frequency. Patient denies any anterior abdominal pain. Patient denies nausea vomiting diarrhea. - Related Data Home Medications Medication Instructions Recorded Confirmed Temazepam [Restoril] 30 mg PO HS 03/05/15 03/26/18 Citalopram Hydrobromide [CeleXA] 40 mg PO DAILY 02/05/16 03/26/18 Morphine Sulfate Ir [MSIR] 15 mg PO BID PRN 02/05/16 03/26/18 Levocetirizine Dihydrochloride 5 mg PO HS 07/13/16 03/26/18 [Xyzal] Tamsulosin [Flomax] 0.4 mg PO HS 07/13/16 03/26/18 Hyoscyamine Sulfate [Levsin-Sl] 0.125 mg SL AC-TID PRN 08/04/16 03/26/18 metFORMIN HCL [Glucophage Xr] 500 mg PO BID 11/27/16 03/26/18 Aspirin EC [Ecotrin Low Dose] 81 mg PO QAM 12/22/16 03/26/18 Omeprazole 40 mg PO BID 12/22/16 03/26/18 Lisinopril [Zestril] 2.5 mg PO QAM 05/02/17 03/26/18 ALPRAZolam [Xanax] 0.25 mg PO DAILY PRN 02/26/18 03/26/18 Focus Maculapro 1 tab PO QAM 02/26/18 03/26/18 Ibuprofen [Motrin] 800 mg PO Q8H PRN 02/26/18 03/26/18 Fluticasone Nasal [place] [Flonase 2 spr EA NOSTRIL BID 03/26/18 03/26/18 Nasal [place]] Insulin Glargine,Hum.rec.anlog See Protocol SQ DAILY PRN 03/26/18 03/26/18 [Tomarilynnreid Umanzormaria alejandraar] Allergies Allergy/AdvReac Type Severity Reaction Status Date / Time cephalexin monohydrate Allergy Rash/Hives Verified 03/26/18 11:34 [From Keflex] clarithromycin [From Biaxin] Allergy Unknown Verified 03/26/18 11:34 gentamicin [Gentamicin] Allergy Unknown Verified 03/26/18 11:34 naproxen Allergy Unknown Verified 03/26/18 11:34 Penicillins Allergy Anaphylaxis Verified 03/26/18 11:34 Sulfa (Sulfonamide Allergy Rash/Hives Verified 03/26/18 11:34 Antibiotics) promethazine AdvReac Nausea & Verified 03/26/18 11:34 Vomiting Review of Systems ROS Statement: Those systems with pertinent positive or pertinent negative responses have been documented in the HPI. ROS Other: All systems not noted in ROS Statement are negative. Past Medical History Past Medical History: Cancer, Chest Pain / Angina, Diabetes Mellitus, GERD/ Reflux, Hypertension, Prostate Disorder Additional Past Medical History / Comment(s): migraines, diverticulosis, kidney stones, neurpathy hands & feet, low BACK PAIN-sees Dr. 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 RIGHT BREAST BIOPSY, TOTAL LT KNEE ; LT FOOT , LARA INGUINAL HERNIA, PERCUTANEOUS NEPHROLITHOTOMY. BILATERAL hand surgery. , back procedure for nerve endings and [facility], colonoscopy.ESOPHGEAL DILATION, eye sx Past Anesthesia/Blood Transfusion Reactions: Motion Sickness Additional Past Anesthesia/Blood Transfusion Reaction / Comment(s): NEVER HAD ANY BLOOD TRANSFUSIONS Past Psychological History: No Psychological Hx Reported Smoking Status: Former smoker Past Alcohol Use History: None Reported Past Drug Use History: None Reported - Past Family History Father Family Medical History: Cancer Mother Family Medical History: Liver Disease Additional Family Medical History / Comment(s): Mother had hepatitis. General Exam - General Exam Comments Initial Comments: GENERAL: Patient is well-developed and well-nourished. Patient is nontoxic and well- hydrated and is in mild distress. ENT: Neck is soft and supple. No significant lymphadenopathy is noted. Oropharynx is clear. Moist mucous membranes. Neck has full range of motion without eliciting any pain. EYES: The sclera were anicteric and conjunctiva were pink and moist. Extraocular movements were intact and pupils were equal round and reactive to light. Eyelids were unremarkable. PULMONARY: Unlabored respirations. Good breath sounds bilaterally. No audible rales rhonchi or wheezing was noted. CARDIOVASCULAR: There is a regular rate and rhythm without any murmurs gallops or rubs. ABDOMEN: Soft and nontender with normal bowel sounds. No palpable organomegaly was noted. There is no palpable pulsatile mass. Patient has some slight left flank pain to palpation and slight CVA pain. However with distraction it does not appear the patient has any pain. SKIN: Skin is clear with no lesions or rashes and otherwise unremarkable. NEUROLOGIC: Patient is alert and oriented x3. Cranial nerves II through XII are grossly intact. Motor and sensory are also intact. Normal speech, volume and content. Symmetrical smile. MUSCULOSKELETAL: Normal extremities with adequate strength and full range of motion. No lower extremity swelling or edema. No calf tenderness. LYMPHATICS: No significant lymphadenopathy is noted PSYCHIATRIC: Normal psychiatric evaluation. Normal interpersonal interactions appears functionally intact in deals appropriately with others. No signs of depression. No signs of anxiety. Limitations: no limitations Course Vital Signs 03/26/18 11:06 Temperature 98 F Pulse Rate 61 Respiratory 18 Rate Blood Pressure 175/67 O2 Sat by Pulse 98 Oximetry Medical Decision Making - Medical Decision Making I will back into reexamine the patient he was feeling considerably better. CAT scan showed no acute abnormality to explain the patient's pain. - Lab Data Result diagrams: 03/26/18 12:59 03/26/18 12:59 Lab Results 03/26/18 03/26/18 03/26/18 Range/Units 12:59 12:59 12:59 WBC 7.2 (3.8-10.6) k/uL RBC 3.76 L (4.30-5.90) m/uL Hgb 11.6 L (13.0-17.5) gm/dL Hct 36.0 L (39.0-53.0) % MCV 95.7 (80.0-100.0) fL MCH 30.7 (25.0-35.0) pg MCHC 32.1 (31.0-37.0) g/dL RDW 21.4 H (11.5-15.5) % Plt Count 287 (150-450) k/uL Neutrophils % (Manual) 52 % Lymphocytes % (Manual) 35 % Monocytes % (Manual) 8 % Eosinophils % (Manual) 4 % Metamyelocytes % 1 % Myelocytes % 1 % Neutrophils # (Manual) 3.74 (1.3-7.7) k/uL Lymphocytes # (Manual) 2.52 (1.0-4.8) k/uL Monocytes # (Manual) 0.58 (0-1.0) k/uL Eosinophils # (Manual) 0.29 (0-0.7) k/uL Metamyelocytes # (Man) 0.07 H (0) k/uL Myelocytes # (Manual) 0.07 H (0) k/uL Nucleated RBCs 2 H (0-0) /100 WBC Hypochromasia Slight Anisocytosis Moderate Macrocytosis Slight Spherocytes Present Sodium 140 (137-145) mmol/L Potassium 4.6 (3.5-5.1) mmol/L Chloride 105 (98-107) mmol/L Carbon Dioxide 26 (22-30) mmol/L Anion Gap 9 mmol/L BUN 18 (9-20) mg/dL Creatinine 0.70 (0.66-1.25) mg/dL Est GFR (CKD-EPI)AfAm >90 (>60 ml/min/1.73 sqM) Est GFR (CKD-EPI)NonAf >90 (>60 ml/min/1.73 sqM) Glucose 93 (74-99) mg/dL POC Glucose (mg/dL) (75-99) mg/dL POC Glu Insurance Sales Specialist ID Calcium 9.6 (8.4-10.2) mg/dL Total Bilirubin 0.8 (0.2-1.3) mg/dL AST 26 (17-59) U/L ALT 35 (21-72) U/L Alkaline Phosphatase 395 H (38-126) U/L Total Protein 6.0 L (6.3-8.2) g/dL Albumin 3.9 (3.5-5.0) g/dL Amylase 51 (30-110) U/L Lipase 42 (23-300) U/L Urine Color Light Yellow Urine Appearance Clear (Clear) Urine pH 5.5 (5.0-8.0) Ur Specific [place] 1.008 (1.001-1.035) Urine Protein Negative (Negative) Urine Glucose (UA) Negative (Negative) Urine Ketones Negative (Negative) Urine Blood Negative (Negative) Urine Nitrite Negative (Negative) Urine Bilirubin Negative (Negative) Urine Urobilinogen <2.0 (<2.0) mg/dL Ur Leukocyte Esterase Trace H (Negative) Urine WBC 2 (0-5) /hpf Urine Mucus Rare H (None) /hpf 03/26/18 Range/Units 13:54 WBC (3.8-10.6) k/uL RBC (4.30-5.90) m/uL Hgb (13.0-17.5) gm/dL Hct (39.0-53.0) % MCV (80.0-100.0) fL MCH (25.0-35.0) pg MCHC (31.0-37.0) g/dL RDW (11.5-15.5) % Plt Count (150-450) k/uL Neutrophils % (Manual) % Lymphocytes % (Manual) % Monocytes % (Manual) % Eosinophils % (Manual) % Metamyelocytes % % Myelocytes % % Neutrophils # (Manual) (1.3-7.7) k/uL Lymphocytes # (Manual) (1.0-4.8) k/uL Monocytes # (Manual) (0-1.0) k/uL Eosinophils # (Manual) (0-0.7) k/uL Metamyelocytes # (Man) (0) k/uL Myelocytes # (Manual) (0) k/uL Nucleated RBCs (0-0) /100 WBC Hypochromasia Anisocytosis Macrocytosis Spherocytes Sodium (137-145) mmol/L Potassium (3.5-5.1) mmol/L Chloride (98-107) mmol/L Carbon Dioxide (22-30) mmol/L Anion Gap mmol/L BUN (9-20) mg/dL Creatinine (0.66-1.25) mg/dL Est GFR (CKD-EPI)AfAm (>60 ml/min/1.73 sqM) Est GFR (CKD-EPI)NonAf (>60 ml/min/1.73 sqM) Glucose (74-99) mg/dL POC Glucose (mg/dL) 94 (75-99) mg/dL POC Glu Insurance Sales Specialist ID Cecilia Gregg Calcium (8.4-10.2) mg/dL Total Bilirubin (0.2-1.3) mg/dL AST (17-59) U/L ALT (21-72) U/L Alkaline Phosphatase (38-126) U/L Total Protein (6.3-8.2) g/dL Albumin (3.5-5.0) g/dL Amylase (30-110) U/L Lipase (23-300) U/L Urine Color Urine Appearance (Clear) Urine pH (5.0-8.0) Ur Specific [place] (1.001-1.035) Urine Protein (Negative) Urine Glucose (UA) (Negative) Urine Ketones (Negative) Urine Blood (Negative) Urine Nitrite (Negative) Urine Bilirubin (Negative) Urine Urobilinogen (<2.0) mg/dL Ur Leukocyte Esterase (Negative) Urine WBC (0-5) /hpf Urine Mucus (None) /hpf Disposition Clinical Impression: Abdominal pain, Muscle strain Disposition: HOME SELF-CARE Condition: Good Instructions: Abdominal Pain (ED), Muscle Strain (ED) Is patient prescribed a controlled substance at d/c from ED?: No Referrals: Vinny Pascal DO [Primary Care Provider] - 1-2 days Time of Disposition: 14:35
[2018-03-26 13:27] LABS: Anisocytosis Moderate; HGB 11.6 gm/dL (13.0-17.5); Hypochromasia Slight; MCH 30.7 pg (25.0-35.0); MCHC 32.1 g/dL (31.0-37.0); MCV 95.7 fL (80.0-100.0); Macrocytosis Slight; Mean Platelet Volume 8.3; Platelet Count 287 k/uL (150-450); RBC 3.76 m/uL (4.30-5.90); RDW 21.4 % (11.5-15.5)
[2018-03-26 13:50] LABS: Appearance,Urine Clear (Clear); Bilirubin,Urine Negative (Negative); Blood,Urine Negative (Negative); Color,Urine Light Yellow; Glucose,Urine (UA) Negative (Negative); Ketones,Urine Negative (Negative); Leukocyte Esterase,Urine Trace (Negative); Mucus,Urine Rare /hpf; Nitrite,Urine Negative (Negative); PH, Urine 5.5 (5.0-8.0); Protein,Urine Negative (Negative); Specific Gravity,Urine 1.008 (1.001-1.035); Urobilinogen,Urine <2.0 mg/dL (<2.0); WBC,Urine 2 /hpf (0-5)
[2018-03-26 13:53] LABS: ALT 35 U/L (21-72); AST 26 U/L (17-59); Albumin 3.9 g/dL (3.5-5.0); Alkaline Phosphatase 395 U/L (38-126); Amylase 51 U/L (30-110); Anion Gap 9 mmol/L; Blood Urea Nitrogen 18 mg/dL (9-20); Calcium 9.6 mg/dL (8.4-10.2); Carbon Dioxide 26 mmol/L (22-30); Chloride 105 mmol/L (98-107); Glucose 93 mg/dL (74-99); Lipase 42 U/L (23-300); Potassium 4.6 mmol/L (3.5-5.1); Sodium 140 mmol/L (137-145); Total Bilirubin 0.8 mg/dL (0.2-1.3)
[2018-03-26 13:56] LABS: Glucose,Whole Blood 94 mg/dL (75-99)
[2018-03-26 14:07] LABS: Eosinophils # (M) 0.29 k/uL (0-0.7); Metamyelocytes # (M) 0.07 k/uL (0); Metamyelocytes % 1 %; Monocytes # (M) 0.58 k/uL (0-1.0); Myelocytes # (M) 0.07 k/uL (0); Myelocytes % 1 %; Neutrophils % (M) 52 %; Nucleated Red Blood Cells 2 /100 WBC (0-0); Total Cells Counted 200
[2018-03-26 14:08] LABS: Lymphocytes # (M) 2.52 k/uL (1.0-4.8); Neutrophils # (M) 3.74 k/uL (1.3-7.7); Spherocytes Present; WBC 7.2 k/uL (3.8-10.6)
--- NOTE | 2018-03-26 14:10 | CT ---
EXAMINATION TYPE: CT abdomen pelvis wo con DATE OF EXAM: 03/26/2018 COMPARISON: CT chest 03/24/2016, CT abdomen pelvis dated 04/02/2017 HISTORY: Left sided flank pain with frequent urination CT DLP: 1002 mGycm Automated exposure control for dose reduction was used. TECHNIQUE: Helical acquisition of images was performed from the lung bases through the pelvis. FINDINGS: LUNG BASES: Subsegmental atelectasis or infiltrate at both lung bases. Coronary artery calcification cardiomegaly noted. LIVER/GB: Tiny hypodensity involving the dome of the liver too small to characterize. PANCREAS: No significant abnormality is seen. SPLEEN: No significant abnormality is seen. ADRENALS: No significant abnormality is seen. KIDNEYS: There is a hypodense lesion involving the mid right kidney which does not meet the criteria of a simple cyst by noncontrast technique. There are 3 punctate calcifications involving the left kidney measuring 2 mm or less. There is a four th lower pole calcification measuring 4 mm. No hydronephrosis. There is cortical loss suggestive of p revious medical renal disease. Tiny exophytic subcentimeter lesion involving the anterior margin of t he left kidney is too small to characterize URINARY BLADDER: No significant abnormality is seen. ADENOPATHY: None visualized. OSSEOUS STRUCTURES: Hypertrophic and degenerative change of the spine noted. BOWEL: Bowel gas pattern is nonspecific with no obstruction. Appendix is normal. Diverticulosis of t he sigmoid colon but no CT evidence of diverticulitis OTHER: Atherosclerotic change of the aorta. Small hiatal hernia. Previous surgery suggested in the re gion of the perineum. IMPRESSION: LEFT-SIDED NONOBSTRUCTIVE RENAL CALCULI. SIGMOID DIVERTICULOSIS WITH NO CT EVIDENCE OF DIVERTICULITIS INDETERMINATE RENAL LESIONS BY NONCONTRAST TECHNIQUE. SHORT-TERM FOLLOW-UP ULTRASOUND COULD BE OBTAIN ED. THERE IS A 5 MM NODULE WITHIN THE RIGHT UPPER LOBE AXIAL IMAGE 6 RETROSPECTIVELY STABLE DATING BACK T O THE CT OF THE CHEST DATED 03/24/2016 AND THEREFORE BENIGN.
== END 2018-03-26 14:45 | disposition home or self-care (01) ==
LOC: EC 11:01
DX: S39.011A Strain of muscle, fascia and tendon of abdomen, initial encounter (principal); E11.40 Type 2 diabetes mellitus with diabetic neuropathy, unspecified; K21.9 Gastro-esophageal reflux disease without esophagitis; I10 Essential (primary) hypertension; N42.9 Disorder of prostate, unspecified; Z87.442 Personal history of urinary calculi; Z90.49 Acquired absence of other specified parts of digestive tract; Z95.5 Presence of coronary angioplasty implant and graft; Z88.0 Allergy status to penicillin; Z88.1 Allergy status to other antibiotic agents; Z88.2 Allergy status to sulfonamides; Z88.6 Allergy status to analgesic agent; Z88.8 Allergy status to other drugs, medicaments and biological substances; Z79.82 Long term (current) use of aspirin; Z79.84 Long term (current) use of oral hypoglycemic drugs; Z79.899 Other long term (current) drug therapy; Z87.891 Personal history of nicotine dependence; X58.XXXA Exposure to other specified factors, initial encounter
CPT/HCPCS: 99284; 96374; 36415; 80053; 82150; 83690; 85025; 81001; 74176; J1885

== ENCOUNTER → 2018-04-05 | Outpatient (CLI) | payer MEDICARE ==
[2018-04-05 10:23] LABS: ALT 32 U/L (21-72); AST 23 U/L (17-59); Albumin 3.9 g/dL (3.5-5.0); Alkaline Phosphatase 410 U/L (38-126); Anion Gap 8 mmol/L; Blood Urea Nitrogen 24 mg/dL (9-20); Calcium 8.8 mg/dL (8.4-10.2); Carbon Dioxide 25 mmol/L (22-30); Chloride 108 mmol/L (98-107); Cholesterol 143 mg/dL (<200); Glucose 117 mg/dL (74-99); HDL Cholesterol 57 mg/dL (40-60); LDL Cholesterol,Calculated 72 mg/dL (0-99); Potassium 4.5 mmol/L (3.5-5.1); Sodium 141 mmol/L (137-145); Total Bilirubin 0.6 mg/dL (0.2-1.3); Total Protein 5.9 g/dL (6.3-8.2); Triglycerides 70 mg/dL (<150)
[2018-04-05 18:53] LABS: Hemoglobin A1C 6.6 % (4.0-6.0)
== END | disposition home or self-care (01) ==
LOC: LABWHC1 08:59
PROVIDERS: ATTEND Internal Medicine Endocrinology, Diabetes & Metabolism
DX: E11.65 Type 2 diabetes mellitus with hyperglycemia (principal)
CPT/HCPCS: 36415; 80053; 80061; 82043; 82570; 83036

== ENCOUNTER 2018-04-20 11:32 | Inpatient (IN) | payer MEDICARE ==
[2018-04-20] MEDS ORDERED: SODIUM CHLORIDE 0.9% 1,000 ML IV STA ×2 (11:54)
[2018-04-20] MEDS ORDERED: KETOROLAC 30 MG/ML 1 ML VIAL IVP STA (11:54)
[2018-04-20] MEDS ORDERED: MORPHINE SULFATE 4 MG/ML SYRINGE IV STA (11:54)
[2018-04-20] MEDS ORDERED: ONDANSETRON 4 MG/2 ML VIAL IVP STA (11:54)
--- NOTE | 2018-04-20 12:25 | ED ---
Abdominal Pain HPI <Darshan Louise - Last Filed: 04/20/18 13:30> - General Source: patient, RN notes reviewed, old records reviewed Mode of arrival: ambulatory Limitations: no limitations <Bettye Pereira - Last Filed: 04/20/18 13:50> - General Chief Complaint: Abdominal Pain Stated Complaint: post op problem Time Seen by Provider: 04/20/18 11:44 - History of Present Illness Initial Comments: This Patient is a 68-year-old male with a recent history of ureteral stent placement on 04/16 of the left ureter. Patient reports that she's not feeling well. Patient states that over the past few days he's had severe chills. He has had no recorded fever. He has been taking Motrin Tylenol for pain. Patient states that he has noticed that his urine has changed from bright red at the time of initial surgery to now is been more clear. He denies any nausea or vomiting. (Bettye Pereira) - Related Data Home Medications Medication Instructions Recorded Confirmed Temazepam [Restoril] 30 mg PO HS 03/05/15 03/26/18 Citalopram Hydrobromide [CeleXA] 40 mg PO DAILY 02/05/16 03/26/18 Morphine Sulfate Ir [MSIR] 15 mg PO BID PRN 02/05/16 03/26/18 Levocetirizine Dihydrochloride 5 mg PO HS 07/13/16 03/26/18 [Xyzal] Tamsulosin [Flomax] 0.4 mg PO HS 07/13/16 03/26/18 Hyoscyamine Sulfate [Levsin-Sl] 0.125 mg SL AC-TID PRN 08/04/16 03/26/18 metFORMIN HCL [Glucophage Xr] 500 mg PO BID 11/27/16 03/26/18 Aspirin EC [Ecotrin Low Dose] 81 mg PO QAM 12/22/16 03/26/18 Omeprazole 40 mg PO BID 12/22/16 03/26/18 Lisinopril [Zestril] 2.5 mg PO QAM 05/02/17 03/26/18 ALPRAZolam [Xanax] 0.25 mg PO DAILY PRN 02/26/18 03/26/18 Focus Maculapro 1 tab PO QAM 02/26/18 03/26/18 Ibuprofen [Motrin] 800 mg PO Q8H PRN 02/26/18 03/26/18 Fluticasone Nasal [place] [Flonase 2 spr EA NOSTRIL BID 03/26/18 03/26/18 Nasal [place]] Insulin Glargine,Hum.rec.anlog See Protocol SQ DAILY PRN 03/26/18 03/26/18 [Toujeo Solostar] Allergies Allergy/AdvReac Type Severity Reaction Status Date / Time cephalexin monohydrate Allergy Rash/Hives Verified 04/20/18 11:38 [From Keflex] clarithromycin [From Biaxin] Allergy Unknown Verified 04/20/18 11:38 gentamicin [Gentamicin] Allergy Unknown Verified 04/20/18 11:38 naproxen Allergy Unknown Verified 04/20/18 11:38 Penicillins Allergy Anaphylaxis Verified 04/20/18 11:38 Sulfa (Sulfonamide Allergy Rash/Hives Verified 04/20/18 11:38 Antibiotics) promethazine AdvReac Nausea & Verified 04/20/18 11:38 Vomiting Review of Systems ROS Other: All systems not noted in ROS Statement are negative. <Darshan Louise - Last Filed: 04/20/18 13:30> ROS Other: All systems not noted in ROS Statement are negative. <Bettye Pereira - Last Filed: 04/20/18 13:50> ROS Statement: Those systems with pertinent positive or pertinent negative responses have been documented in the HPI. Past Medical History Past Medical History: Cancer, Chest Pain / Angina, Diabetes Mellitus, GERD/ Reflux, Hypertension, Prostate Disorder Additional Past Medical History / Comment(s): migraines, diverticulosis, kidney stones, neurpathy hands & feet, low BACK PAIN-sees Dr. 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 RIGHT BREAST BIOPSY, TOTAL LT KNEE ; LT FOOT , LARA INGUINAL HERNIA, PERCUTANEOUS NEPHROLITHOTOMY. BILATERAL hand surgery. , back procedure for nerve endings and [facility], colonoscopy.ESOPHGEAL DILATION, eye sx Past Anesthesia/Blood Transfusion Reactions: Motion Sickness Additional Past Anesthesia/Blood Transfusion Reaction / Comment(s): NEVER HAD ANY BLOOD TRANSFUSIONS Past Psychological History: No Psychological Hx Reported Smoking Status: Former smoker Past Alcohol Use History: None Reported Past Drug Use History: None Reported - Past Family History Father Family Medical History: Cancer Mother Family Medical History: Liver Disease Additional Family Medical History / Comment(s): Mother had hepatitis. <Bettye Pereira - Last Filed: 04/20/18 13:50> General Exam <Darshan Louise - Last Filed: 04/20/18 13:30> Limitations: no limitations General appearance: alert, in no apparent distress Head exam: Present: atraumatic, normocephalic, normal inspection Eye exam: Present: normal appearance, PERRL, EOMI. Absent: scleral icterus, conjunctival injection, periorbital swelling ENT exam: Present: normal exam, mucous membranes moist Neck exam: Present: normal inspection. Absent: tenderness, meningismus, lymphadenopathy Respiratory exam: Present: normal lung sounds bilaterally. Absent: respiratory distress, wheezes, rales, rhonchi, stridor Cardiovascular Exam: Present: regular rate, normal rhythm, normal heart sounds. Absent: systolic murmur, diastolic murmur, rubs, gallop, clicks GI/Abdominal exam: Present: soft, tenderness (Left lower quadrant suprapubic tenderness.), normal bowel sounds. Absent: distended, guarding, rebound, rigid Extremities exam: Present: normal inspection, full ROM, normal capillary refill. Absent: tenderness, pedal edema, joint swelling, calf tenderness Back exam: Present: normal inspection, CVA tenderness (L) (Patient is with a left CVA tenderness. Patient is intermittently palpation of the CVAs paraspinal muscle area.) Neurological exam: Present: alert, oriented X3, CN II-XII intact Psychiatric exam: Present: normal affect, normal mood Skin exam: Present: warm, dry, intact, normal color. Absent: rash <Bettye Pereira - Last Filed: 04/20/18 13:50> - General Exam Comments Initial Comments: 68-year-old male. Alert and oriented. No significant distress. (Bettye Pereira) Course <Darshan Louise - Last Filed: 04/20/18 13:30> <Bettye Pereira - Last Filed: 04/20/18 13:50> Vital Signs 04/20/18 04/20/18 11:34 13:18 Temperature 98.9 F 98.5 F Pulse Rate 96 77 Respiratory 20 18 Rate Blood Pressure 136/84 120/64 O2 Sat by Pulse 96 95 Oximetry - Reevaluation(s) Reevaluation #1: 04/20/18 13:31 Page supervision: I personally do a states evaluation the patient did discuss the findings with him and his . I do agree with the assessment and plan I did discuss case with Dr. Mcgrath. Patient will be admitted for IV and oxygen fluids and pain control tonight. (Darshan Louise) Medical Decision Making - Lab Data Result diagrams: 04/20/18 12:15 04/20/18 12:15 <Darshan Louise - Last Filed: 04/20/18 13:30> - Lab Data Result diagrams: 04/20/18 12:15 04/20/18 12:15 - Radiology Data Radiology results: report reviewed <Bettye Pereira - Last Filed: 04/20/18 13:50> - Medical Decision Making 68-year-old male presents emergency Department chief complaint of chills, 4 days post left ureter stent by Dr. Hernandez. While in the emergency department we discussed the case with Dr. Peraza. Patient's lab work does show evidence of leukocytosis. Blood culture and urine culture obtained. Urinalysis is positive for infection with white blood cells noted. Patient was started on Levaquin as he does have multiple ALLERGIES. We'll give the Patient to liters of fluids started on maintenance fluids keep pain management under control. He does continue to have severe left-sided flank pain. (Bettye Pereira) - Lab Data Lab Results 04/20/18 04/20/18 04/20/18 Range/Units 12:15 12:15 12:15 WBC 18.7 H (3.8-10.6) k/uL RBC 3.90 L (4.30-5.90) m/uL Hgb 12.2 L (13.0-17.5) gm/dL Hct 38.1 L (39.0-53.0) % MCV 97.6 (80.0-100.0) fL MCH 31.3 (25.0-35.0) pg MCHC 32.1 (31.0-37.0) g/dL RDW 21.5 H (11.5-15.5) % Plt Count 247 (150-450) k/uL Neutrophils % 74 % Lymphocytes % 13 % Monocytes % 10 % Eosinophils % 1 % Basophils % 1 % Neutrophils # 13.7 H (1.3-7.7) k/uL Lymphocytes # 2.3 (1.0-4.8) k/uL Monocytes # 1.8 H (0-1.0) k/uL Eosinophils # 0.2 (0-0.7) k/uL Basophils # 0.1 (0-0.2) k/uL Hypochromasia Slight Anisocytosis Moderate Macrocytosis Slight PT 11.4 (9.0-12.0) sec INR 1.2 H (<1.2) APTT 23.0 (22.0-30.0) sec Sodium 139 (137-145) mmol/L Potassium 4.4 (3.5-5.1) mmol/L Chloride 104 (98-107) mmol/L Carbon Dioxide 23 (22-30) mmol/L Anion Gap 12 mmol/L BUN 22 H (9-20) mg/dL Creatinine 0.80 (0.66-1.25) mg/dL Est GFR (CKD-EPI)AfAm >90 (>60 ml/min/1.73 sqM) Est GFR (CKD-EPI)NonAf >90 (>60 ml/min/1.73 sqM) Glucose 133 H (74-99) mg/dL Plasma Lactic Acid Elvin (0.7-2.0) mmol/L Calcium 9.4 (8.4-10.2) mg/dL Total Bilirubin 1.6 H (0.2-1.3) mg/dL AST 25 (17-59) U/L ALT 33 (21-72) U/L Alkaline Phosphatase 189 H (38-126) U/L Total Protein 6.5 (6.3-8.2) g/dL Albumin 4.2 (3.5-5.0) g/dL Amylase 42 (30-110) U/L Lipase 32 (23-300) U/L Urine Color Urine Appearance (Clear) Urine pH (5.0-8.0) Ur Specific [place] (1.001-1.035) Urine Protein (Negative) Urine Glucose (UA) (Negative) Urine Ketones (Negative) Urine Blood (Negative) Urine Nitrite (Negative) Urine Bilirubin (Negative) Urine Urobilinogen (<2.0) mg/dL Ur Leukocyte Esterase (Negative) Urine RBC (0-5) /hpf Urine WBC (0-5) /hpf Ur Squamous Epith Cells (0-4) /hpf Urine Bacteria (None) /hpf Urine Mucus (None) /hpf 04/20/18 04/20/18 Range/Units 12:15 12:15 WBC (3.8-10.6) k/uL RBC (4.30-5.90) m/uL Hgb (13.0-17.5) gm/dL Hct (39.0-53.0) % MCV (80.0-100.0) fL MCH (25.0-35.0) pg MCHC (31.0-37.0) g/dL RDW (11.5-15.5) % Plt Count (150-450) k/uL Neutrophils % % Lymphocytes % % Monocytes % % Eosinophils % % Basophils % % Neutrophils # (1.3-7.7) k/uL Lymphocytes # (1.0-4.8) k/uL Monocytes # (0-1.0) k/uL Eosinophils # (0-0.7) k/uL Basophils # (0-0.2) k/uL Hypochromasia Anisocytosis Macrocytosis PT (9.0-12.0) sec INR (<1.2) APTT (22.0-30.0) sec Sodium (137-145) mmol/L Potassium (3.5-5.1) mmol/L Chloride (98-107) mmol/L Carbon Dioxide (22-30) mmol/L Anion Gap mmol/L BUN (9-20) mg/dL Creatinine (0.66-1.25) mg/dL Est GFR (CKD-EPI)AfAm (>60 ml/min/1.73 sqM) Est GFR (CKD-EPI)NonAf (>60 ml/min/1.73 sqM) Glucose (74-99) mg/dL Plasma Lactic Acid Elvin 1.4 (0.7-2.0) mmol/L Calcium (8.4-10.2) mg/dL Total Bilirubin (0.2-1.3) mg/dL AST (17-59) U/L ALT (21-72) U/L Alkaline Phosphatase (38-126) U/L Total Protein (6.3-8.2) g/dL Albumin (3.5-5.0) g/dL Amylase (30-110) U/L Lipase (23-300) U/L Urine Color Yellow Urine Appearance Clear (Clear) Urine pH 5.5 (5.0-8.0) Ur Specific [place] 1.017 (1.001-1.035) Urine Protein 1+ H (Negative) Urine Glucose (UA) Negative (Negative) Urine Ketones 2+ H (Negative) Urine Blood Moderate H (Negative) Urine Nitrite Negative (Negative) Urine Bilirubin Negative (Negative) Urine Urobilinogen <2.0 (<2.0) mg/dL Ur Leukocyte Esterase Moderate H (Negative) Urine RBC 145 H (0-5) /hpf Urine WBC 60 H (0-5) /hpf Ur Squamous Epith Cells <1 (0-4) /hpf Urine Bacteria Occasional H (None) /hpf Urine Mucus Moderate H (None) /hpf - Radiology Data Findings consistent with mild ileus the abdomen. Within the abdomen there is a double J stent to the left. (Bettye Pereira) Disposition <Darshan Louise - Last Filed: 04/20/18 13:30> Is patient prescribed a controlled substance at d/c from ED?: No Time of Disposition: 13:49 <Bettye Pereira - Last Filed: 04/20/18 13:50> Clinical Impression: Retained ureteral stent, Leukocytosis, Diabetes, UTI (urinary tract infection) Disposition: ADMITTED IP TO THIS HOSP Condition: Stable Referrals: Vinny Pascal DO [Primary Care Provider] - 1-2 days
[2018-04-20 12:33] LABS: Appearance,Urine Clear (Clear); Bacteria,Urine Occasional /hpf; Bilirubin,Urine Negative (Negative); Blood,Urine Moderate (Negative); Color,Urine Yellow; Glucose,Urine (UA) Negative (Negative); Ketones,Urine 2+ (Negative); Leukocyte Esterase,Urine Moderate (Negative); Mucus,Urine Moderate /hpf; Nitrite,Urine Negative (Negative); PH, Urine 5.5 (5.0-8.0); Protein,Urine 1+ (Negative); RBC,Urine 145 /hpf (0-5); Specific Gravity,Urine 1.017 (1.001-1.035); Squamous Epithelial Cell,Urine <1 /hpf (0-4); Urobilinogen,Urine <2.0 mg/dL (<2.0); WBC,Urine 60 /hpf (0-5)
[2018-04-20 12:34] LABS: Anisocytosis Moderate; Basophils # (A) 0.1 k/uL (0-0.2); Basophils % (A) 1 %; Eosinophils # (A) 0.2 k/uL (0-0.7); Eosinophils % (A) 1 %; HCT 38.1 % (39.0-53.0); HGB 12.2 gm/dL (13.0-17.5); Hypochromasia Slight; Lymphocytes # (A) 2.3 k/uL (1.0-4.8); Lymphocytes % (A) 13 %; MCH 31.3 pg (25.0-35.0); MCHC 32.1 g/dL (31.0-37.0); MCV 97.6 fL (80.0-100.0); Macrocytosis Slight; Mean Platelet Volume 7.6; Monocytes # (A) 1.8 k/uL (0-1.0); Monocytes % (A) 10 %; Neutrophils # (A) 13.7 k/uL (1.3-7.7); Neutrophils % (A) 74 %; Platelet Count 247 k/uL (150-450); RDW 21.5 % (11.5-15.5); WBC 18.7 k/uL (3.8-10.6)
[2018-04-20 12:38] LABS: INR 1.2 (<1.2); Prothrombin Time 11.4 sec (9.0-12.0)
[2018-04-20 12:42] LABS: ALT 33 U/L (21-72); AST 25 U/L (17-59); Albumin 4.2 g/dL (3.5-5.0); Alkaline Phosphatase 189 U/L (38-126); Amylase 42 U/L (30-110); Anion Gap 12 mmol/L; Blood Urea Nitrogen 22 mg/dL (9-20); Calcium 9.4 mg/dL (8.4-10.2); Carbon Dioxide 23 mmol/L (22-30); Chloride 104 mmol/L (98-107); Glucose 133 mg/dL (74-99); Lipase 32 U/L (23-300); Potassium 4.4 mmol/L (3.5-5.1); Sodium 139 mmol/L (137-145); Total Bilirubin 1.6 mg/dL (0.2-1.3); Total Protein 6.5 g/dL (6.3-8.2)
--- NOTE | 2018-04-20 12:44 | XR ---
EXAMINATION TYPE: XR KUB , 2 VIEWS DATE OF EXAM ORDERED: 04/20/2018 HISTORY: abdominal pain. COMPARISON: Previous study dated 03/25/2018. FINDINGS: The lung bases are clear. Within the abdomen there is a double-J stent on the left. There are scattered air-fluid levels. There is no evidence of obstruction or free air. No unusual calcifications are seen. IMPRESSION: FINDINGS CONSISTENT WITH MILD ILEUS.
[2018-04-20] MEDS ORDERED: LEVOFLOXACIN 750MG-D5W PMX 750 MG in DEXTROSE/WATER 1 150ML.BAG IVPB STA (12:47)
[2018-04-20] MEDS ORDERED: SODIUM CHLORIDE 0.9% 1,000 ML IV ONE (13:33)
[2018-04-20] MEDS ORDERED: ONDANSETRON 4 MG/2 ML VIAL IVP PRN (13:43)
[2018-04-20] MEDS ORDERED: NALOXONE 0.4 MG/ML 1 ML VIAL IV PRN (13:43)
[2018-04-20] MEDS ORDERED: IBUPROFEN 400 MG TAB PO PRN (13:43)
[2018-04-20] MEDS ORDERED: SODIUM CHLORIDE 0.9% 1,000 ML IV SCH (13:45)
[2018-04-20 14:50] VITALS: BMI 27.3
[2018-04-20] MEDS ORDERED: ALPRAZolam 0.25 MG TAB PO PRN (15:16)
[2018-04-20] MEDS ORDERED: HYOSCYAMINE SULFATE 0.125 MG SL PRN (15:16)
[2018-04-20] MEDS ORDERED: MORPHINE SULFATE IR 15 MG TABLET PO PRN (15:16)
[2018-04-20] MEDS: MORPHINE SULFATE 4 MG/ML SYRINGE IV PRN ×2 (16:20→21:41)
[2018-04-20] MEDS: SODIUM CHLORIDE 0.45% 1,000 ML IV SCH (16:21)
[2018-04-20 16:59] LABS: Glucose,Whole Blood 93 mg/dL (75-99)
[2018-04-20] MEDS: KETOROLAC 30 MG/ML 1 ML VIAL IVP PRN (18:51)
[2018-04-20 20:06] LABS: Glucose,Whole Blood 125 mg/dL (75-99)
[2018-04-20] MEDS: FLUTICASONE 50MCG/SPRAY NASAL 16GM EA NOSTRIL SCH (20:08)
[2018-04-20] MEDS: TAMSULOSIN 0.4 MG CAP.ER.24H PO SCH (20:08)
[2018-04-20] MEDS: metFORMIN 500 MG TAB PO SCH (20:08)
[2018-04-20] MEDS: LORATADINE 10 MG TAB PO SCH (20:08)
[2018-04-20] MEDS ORDERED: NON-FORMULARY DRUG (Omeprazole [Omeprazole] 40 MG) PO SCH (21:00)
[2018-04-20] MEDS ORDERED: IBUPROFEN 800 MG TAB PO PRN (21:00)
[2018-04-20] MEDS: TEMAZEPAM 30 MG CAP PO SCH (22:19)
[2018-04-21] MEDS: SODIUM CHLORIDE 0.45% 1,000 ML IV SCH ×3 (00:09→15:56)
[2018-04-21] MEDS: KETOROLAC 30 MG/ML 1 ML VIAL IVP PRN ×2 (04:36→22:22)
[2018-04-21] MEDS: MORPHINE SULFATE 4 MG/ML SYRINGE IV PRN ×5 (05:28→23:40)
[2018-04-21 06:59] LABS: Glucose,Whole Blood 141 mg/dL (75-99)
[2018-04-21] MEDS: PANTOPRAZOLE 40 MG/10 ML VIAL IV SCH (08:13)
[2018-04-21] MEDS: FLUTICASONE 50MCG/SPRAY NASAL 16GM EA NOSTRIL SCH ×2 (08:13→20:20)
[2018-04-21] MEDS: LISINOPRIL 2.5 MG TAB PO SCH (08:13)
[2018-04-21] MEDS: ASPIRIN 81 MG PO SCH (08:14)
[2018-04-21] MEDS: metFORMIN 500 MG TAB PO SCH ×2 (08:14→20:20)
[2018-04-21] MEDS: CITALOPRAM HYDROBROMIDE 20 MG TAB PO SCH (08:14)
[2018-04-21] MEDS ORDERED: [UNRECOGNIZED DRUG - OTHER] PO SCH (09:00)
--- NOTE | 2018-04-21 10:17 | P.GSHP ---
History of Present Illness H&P Date: 04/21/18 The patient is a 68-year-old gentleman, patient of Dr. Gonzalez with a history of kidney stones. He presented to the emergency room with fever and chills and feeling poorly. He is found to have a low-grade fever up. He had a white count of 18,000 and infected looking urine. He was brought in the hospital for IV antibiotics IV hydration and urine cultures. He is feeling slightly better this morning. He is on Levaquin. - Constitutional Constitutional: Reports anorexia, Reports chills, Reports fatigue, Reports fever Past Medical History Past Medical History: Cancer, Chest Pain / Angina, Diabetes Mellitus, GERD/ Reflux, Hypertension, Prostate Disorder Additional Past Medical History / Comment(s): migraines, diverticulosis, kidney stones, neurpathy hands & feet, low BACK PAIN-sees Dr. 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 RIGHT BREAST BIOPSY, TOTAL LT KNEE ; LT FOOT , LARA INGUINAL HERNIA, PERCUTANEOUS NEPHROLITHOTOMY. BILATERAL hand surgery. , back procedure for nerve endings and [facility], colonoscopy.ESOPHGEAL DILATION, eye sx Past Anesthesia/Blood Transfusion Reactions: Motion Sickness Additional Past Anesthesia/Blood Transfusion Reaction / Comment(s): NEVER HAD ANY BLOOD TRANSFUSIONS Smoking Status: Former smoker - Past Family History Father Family Medical History: Cancer Mother Family Medical History: Liver Disease Additional Family Medical History / Comment(s): Mother had hepatitis. Medications and Allergies Home Medications Medication Instructions Recorded Confirmed Type Temazepam [Restoril] 30 mg PO HS 03/05/15 04/20/18 History Citalopram Hydrobromide [CeleXA] 40 mg PO DAILY 02/05/16 04/20/18 History Morphine Sulfate Ir [MSIR] 15 mg PO BID PRN 02/05/16 04/20/18 History Levocetirizine Dihydrochloride 5 mg PO HS 07/13/16 04/20/18 History [Xyzal] Tamsulosin [Flomax] 0.4 mg PO HS 07/13/16 04/20/18 History Hyoscyamine Sulfate [Levsin-Sl] 0.125 mg SL AC-TID PRN 08/04/16 04/20/18 History metFORMIN HCL [Glucophage Xr] 500 mg PO BID 11/27/16 04/20/18 History Aspirin EC [Ecotrin Low Dose] 81 mg PO QAM 12/22/16 04/20/18 History Omeprazole 40 mg PO BID 12/22/16 04/20/18 History Lisinopril [Zestril] 2.5 mg PO QAM 05/02/17 04/20/18 History ALPRAZolam [Xanax] 0.25 mg PO DAILY PRN 02/26/18 04/20/18 History Focus Maculapro 1 tab PO QAM 02/26/18 04/20/18 History Ibuprofen [Motrin] 800 mg PO HS PRN 02/26/18 04/20/18 History Fluticasone Nasal [place] [Flonase 2 spr EA NOSTRIL BID 03/26/18 04/20/18 History Nasal [place]] Insulin Glargine,Hum.rec.anlog See Protocol SQ DAILY PRN 03/26/18 04/20/18 History [Tonikky Morales] Allergies Allergy/AdvReac Type Severity Reaction Status Date / Time cephalexin monohydrate Allergy Rash/Hives Verified 04/20/18 14:13 [From Keflex] clarithromycin [From Biaxin] Allergy Unknown Verified 04/20/18 14:13 gentamicin [Gentamicin] Allergy Unknown Verified 04/20/18 14:13 naproxen Allergy Unknown Verified 04/20/18 14:13 Penicillins Allergy Anaphylaxis Verified 04/20/18 14:13 Sulfa (Sulfonamide Allergy Rash/Hives Verified 04/20/18 14:13 Antibiotics) promethazine AdvReac Nausea & Verified 04/20/18 14:13 Vomiting Surgical - Exam Vital Signs Temp Pulse Resp BP Pulse Ox 98.9 F 96 20 136/84 96 04/20/18 11:34 04/20/18 11:34 04/20/18 11:34 04/20/18 11:34 04/20/18 11:34 - General well developed, well nourished, no distress - Eyes PERRL - ENT no hearing loss - Neck trachea midline - Respiratory normal expansion, normal respiratory effort - Cardiovascular Rhythm: regular - Abdomen Abdomen: soft, non tender - Integumentary no rash, no growths - Neurologic normal coordination, normal sensation - Musculoskeletal normal posture - Psychiatric oriented to time, oriented to person, oriented to place, speech is normal, memory intact Results - Labs 04/20/18 12:15 04/20/18 12:15 Abnormal Lab Results - Last 24 Hours (Table) 04/20/18 04/20/18 04/20/18 Range/Units 12:15 12:15 12:15 WBC 18.7 H (3.8-10.6) k/uL RBC 3.90 L (4.30-5.90) m/uL Hgb 12.2 L (13.0-17.5) gm/dL Hct 38.1 L (39.0-53.0) % RDW 21.5 H (11.5-15.5) % Neutrophils # 13.7 H (1.3-7.7) k/uL Monocytes # 1.8 H (0-1.0) k/uL INR 1.2 H (<1.2) BUN 22 H (9-20) mg/dL Glucose 133 H (74-99) mg/dL POC Glucose (mg/dL) (75-99) mg/dL Total Bilirubin 1.6 H (0.2-1.3) mg/dL Alkaline Phosphatase 189 H (38-126) U/L Urine Protein (Negative) Urine Ketones (Negative) Urine Blood (Negative) Ur Leukocyte Esterase (Negative) Urine RBC (0-5) /hpf Urine WBC (0-5) /hpf Urine Bacteria (None) /hpf Urine Mucus (None) /hpf 04/20/18 04/20/18 04/21/18 Range/Units 12:15 20:04 06:57 WBC (3.8-10.6) k/uL RBC (4.30-5.90) m/uL Hgb (13.0-17.5) gm/dL Hct (39.0-53.0) % RDW (11.5-15.5) % Neutrophils # (1.3-7.7) k/uL Monocytes # (0-1.0) k/uL INR (<1.2) BUN (9-20) mg/dL Glucose (74-99) mg/dL POC Glucose (mg/dL) 125 H 141 H (75-99) mg/dL Total Bilirubin (0.2-1.3) mg/dL Alkaline Phosphatase (38-126) U/L Urine Protein 1+ H (Negative) Urine Ketones 2+ H (Negative) Urine Blood Moderate H (Negative) Ur Leukocyte Esterase Moderate H (Negative) Urine RBC 145 H (0-5) /hpf Urine WBC 60 H (0-5) /hpf Urine Bacteria Occasional H (None) /hpf Urine Mucus Moderate H (None) /hpf Microbiology - Last 24 Hours (Table) 04/20/18 12:15 Urine Culture - Preliminary Urine,Voided Diabetes panel 04/20/18 Range/Units 12:15 Sodium 139 (137-145) mmol/L Potassium 4.4 (3.5-5.1) mmol/L Chloride 104 (98-107) mmol/L Carbon Dioxide 23 (22-30) mmol/L BUN 22 H (9-20) mg/dL Creatinine 0.80 (0.66-1.25) mg/dL Glucose 133 H (74-99) mg/dL Calcium 9.4 (8.4-10.2) mg/dL AST 25 (17-59) U/L ALT 33 (21-72) U/L Alkaline Phosphatase 189 H (38-126) U/L Total Protein 6.5 (6.3-8.2) g/dL Albumin 4.2 (3.5-5.0) g/dL Calcium panel 04/20/18 Range/Units 12:15 Calcium 9.4 (8.4-10.2) mg/dL Albumin 4.2 (3.5-5.0) g/dL Pituitary panel 04/20/18 Range/Units 12:15 Sodium 139 (137-145) mmol/L Potassium 4.4 (3.5-5.1) mmol/L Chloride 104 (98-107) mmol/L Carbon Dioxide 23 (22-30) mmol/L BUN 22 H (9-20) mg/dL Creatinine 0.80 (0.66-1.25) mg/dL Glucose 133 H (74-99) mg/dL Calcium 9.4 (8.4-10.2) mg/dL Adrenal panel 07/28/18 Range/Units 12:15 Sodium 139 (137-145) mmol/L Potassium 4.4 (3.5-5.1) mmol/L Chloride 104 (98-107) mmol/L Carbon Dioxide 23 (22-30) mmol/L BUN 22 H (9-20) mg/dL Creatinine 0.80 (0.66-1.25) mg/dL Glucose 133 H (74-99) mg/dL Calcium 9.4 (8.4-10.2) mg/dL Total Bilirubin 1.6 H (0.2-1.3) mg/dL AST 25 (17-59) U/L ALT 33 (21-72) U/L Alkaline Phosphatase 189 H (38-126) U/L Total Protein 6.5 (6.3-8.2) g/dL Albumin 4.2 (3.5-5.0) g/dL Assessment and Plan Assessment: Impression: Urinary tract infection with sepsis post-stent placement., Medical problems as outlined in past medical history Recommendations: The patient will continue with IV antibiotics and IV hydration pending urine cultures.
[2018-04-21 11:04] LABS: Glucose,Whole Blood 113 mg/dL (75-99)
[2018-04-21] MEDS: ACETAMINOPHEN TAB 325 MG TAB PO PRN (12:20)
[2018-04-21] MEDS ORDERED: LEVOFLOXACIN 500MG-D5W PMX 500 MG in DEXTROSE/WATER 1 100ML.BAG IVPB SCH (16:00)
[2018-04-21 16:44] LABS: Glucose,Whole Blood 132 mg/dL (75-99)
[2018-04-21 20:08] LABS: Glucose,Whole Blood 106 mg/dL (75-99)
[2018-04-21] MEDS: TAMSULOSIN 0.4 MG CAP.ER.24H PO SCH (20:19)
[2018-04-21] MEDS: LORATADINE 10 MG TAB PO SCH (20:20)
[2018-04-21] MEDS: TEMAZEPAM 30 MG CAP PO SCH (22:16)
[2018-04-22] MEDS: MORPHINE SULFATE 4 MG/ML SYRINGE IV PRN ×5 (03:17→21:15)
[2018-04-22] MEDS: KETOROLAC 30 MG/ML 1 ML VIAL IVP PRN ×2 (05:22→20:28)
[2018-04-22] MEDS: SODIUM CHLORIDE 0.45% 1,000 ML IV SCH ×3 (05:28→21:15)
[2018-04-22 07:11] LABS: Glucose,Whole Blood 93 mg/dL (75-99)
[2018-04-22] MEDS: metFORMIN 500 MG TAB PO SCH ×2 (09:00→20:19)
[2018-04-22] MEDS: FLUTICASONE 50MCG/SPRAY NASAL 16GM EA NOSTRIL SCH ×2 (09:17→20:20)
[2018-04-22] MEDS: CITALOPRAM HYDROBROMIDE 20 MG TAB PO SCH (09:17)
[2018-04-22] MEDS: ASPIRIN 81 MG PO SCH (09:17)
[2018-04-22] MEDS: LISINOPRIL 2.5 MG TAB PO SCH (09:18)
[2018-04-22] MEDS: PANTOPRAZOLE 40 MG/10 ML VIAL IV SCH (09:18)
[2018-04-22 11:21] LABS: Glucose,Whole Blood 123 mg/dL (75-99)
[2018-04-22] MEDS: ACETAMINOPHEN TAB 325 MG TAB PO PRN (15:31)
[2018-04-22 17:01] LABS: Glucose,Whole Blood 142 mg/dL (75-99)
--- NOTE | 2018-04-22 18:14 | P.PN ---
Progress Note - Text Progress Note Date: 04/22/18 Mr. Lorenz reports suprapubic and left flank pain. He also reports sweating. He was afebrile earlier today, but recently spiked a fever of 102F. The urine culture is showing gram-negative bacilli, but identification of the organism is pending. In the meantime, he will continue to receive Levaquin.
[2018-04-22] MEDS: LEVOFLOXACIN 500 MG TAB PO SCH (18:16)
[2018-04-22 19:22] LABS: Hemoglobin A1C 6.5 % (4.0-6.0)
[2018-04-22 20:11] LABS: Glucose,Whole Blood 165 mg/dL (75-99)
[2018-04-22] MEDS: TAMSULOSIN 0.4 MG CAP.ER.24H PO SCH (20:19)
[2018-04-22] MEDS: LORATADINE 10 MG TAB PO SCH (20:19)
[2018-04-22] MEDS: TEMAZEPAM 30 MG CAP PO SCH (22:52)
[2018-04-23] MEDS: MORPHINE SULFATE 4 MG/ML SYRINGE IV PRN ×6 (01:39→21:52)
[2018-04-23] MEDS: SODIUM CHLORIDE 0.45% 1,000 ML IV SCH ×3 (04:57→15:49)
[2018-04-23 07:07] LABS: Glucose,Whole Blood 130 mg/dL (75-99)
[2018-04-23] MEDS: FLUTICASONE 50MCG/SPRAY NASAL 16GM EA NOSTRIL SCH ×2 (07:33→20:08)
[2018-04-23] MEDS: CITALOPRAM HYDROBROMIDE 20 MG TAB PO SCH (07:33)
[2018-04-23] MEDS: ASPIRIN 81 MG PO SCH (07:34)
[2018-04-23] MEDS: metFORMIN 500 MG TAB PO SCH ×2 (07:34→20:08)
[2018-04-23] MEDS: LISINOPRIL 2.5 MG TAB PO SCH (07:34)
[2018-04-23] MEDS: PANTOPRAZOLE 40 MG/10 ML VIAL IV SCH (07:34)
[2018-04-23] MEDS: KETOROLAC 30 MG/ML 1 ML VIAL IVP PRN ×3 (07:42→22:26)
--- NOTE | 2018-04-23 09:30 | P.PN ---
Progress Note - Text Progress Note Date: 04/23/18 The patient has been afebrile since yesterday afternoon. He continues to report suprapubic pain. This is almost certainly due to the ureteral stent. The urine culture has shown Klebsiella pneumoniae, sensitive to Levaquin. I suggested that he be discharged home on oral Levaquin, and undergo removal of his left ureteral stent in the office tomorrow. However, he refuses this and wishes to remain hospitalized an additional day.
[2018-04-23 11:09] LABS: Glucose,Whole Blood 148 mg/dL (75-99)
[2018-04-23] MEDS: LEVOFLOXACIN 500 MG TAB PO SCH (15:51)
[2018-04-23 16:34] LABS: Glucose,Whole Blood 126 mg/dL (75-99)
[2018-04-23 20:08] LABS: Glucose,Whole Blood 130 mg/dL (75-99)
[2018-04-23] MEDS: TAMSULOSIN 0.4 MG CAP.ER.24H PO SCH (20:08)
[2018-04-23] MEDS: LORATADINE 10 MG TAB PO SCH (20:08)
[2018-04-23] MEDS: TEMAZEPAM 30 MG CAP PO SCH (22:23)
[2018-04-24] MEDS: MORPHINE SULFATE 4 MG/ML SYRINGE IV PRN ×5 (04:20→22:28)
[2018-04-24] MEDS: KETOROLAC 30 MG/ML 1 ML VIAL IVP PRN ×3 (07:04→21:28)
[2018-04-24 07:23] LABS: Glucose,Whole Blood 102 mg/dL (75-99)
[2018-04-24] MEDS: SODIUM CHLORIDE 0.45% 1,000 ML IV SCH ×4 (07:37→15:22)
[2018-04-24] MEDS: metFORMIN 500 MG TAB PO SCH ×2 (09:31→21:29)
[2018-04-24] MEDS: CITALOPRAM HYDROBROMIDE 20 MG TAB PO SCH (09:31)
[2018-04-24] MEDS: LISINOPRIL 2.5 MG TAB PO SCH (09:31)
[2018-04-24] MEDS: ASPIRIN 81 MG PO SCH (09:31)
[2018-04-24] MEDS: PANTOPRAZOLE 40 MG TABLET PO SCH (09:31)
[2018-04-24] MEDS: FLUTICASONE 50MCG/SPRAY NASAL 16GM EA NOSTRIL SCH ×2 (09:32→21:29)
[2018-04-24 11:37] LABS: Glucose,Whole Blood 136 mg/dL (75-99)
[2018-04-24] MEDS: LEVOFLOXACIN 500 MG TAB PO SCH (15:23)
--- NOTE | 2018-04-24 16:19 | P.PN ---
Progress Note - Text Progress Note Date: 04/24/18 The patient continues to report suprapubic and left flank discomfort, particularly with micturition. He is afebrile. Blood cultures are negative. I explained to him that his pain is due to the ureteral stent, and I suggested that he be discharged home and undergo stent removal in the office later this week. He refuses this, and I thus intend to remove his stent in the operating room tomorrow.
[2018-04-24 16:54] LABS: Glucose,Whole Blood 95 mg/dL (75-99)
[2018-04-24 20:22] LABS: Glucose,Whole Blood 151 mg/dL (75-99)
[2018-04-24] MEDS: TEMAZEPAM 30 MG CAP PO SCH (21:29)
[2018-04-24] MEDS: TAMSULOSIN 0.4 MG CAP.ER.24H PO SCH (21:29)
[2018-04-24] MEDS: LORATADINE 10 MG TAB PO SCH (21:29)
[2018-04-25] MEDS: MORPHINE SULFATE 4 MG/ML SYRINGE IV PRN ×5 (03:07→21:15)
[2018-04-25] MEDS: KETOROLAC 30 MG/ML 1 ML VIAL IVP PRN (05:07)
[2018-04-25 07:10] LABS: Glucose,Whole Blood 105 mg/dL (75-99)
[2018-04-25] MEDS: CITALOPRAM HYDROBROMIDE 20 MG TAB PO SCH (08:05)
[2018-04-25] MEDS: PANTOPRAZOLE 40 MG TABLET PO SCH (08:05)
[2018-04-25] MEDS: LISINOPRIL 2.5 MG TAB PO SCH (08:05)
[2018-04-25] MEDS: SODIUM CHLORIDE 0.45% 1,000 ML IV SCH ×2 (08:07→19:40)
[2018-04-25] MEDS: FLUTICASONE 50MCG/SPRAY NASAL 16GM EA NOSTRIL SCH ×2 (08:09→21:12)
[2018-04-25] MEDS: metFORMIN 500 MG TAB PO SCH ×2 (08:09→21:12)
[2018-04-25 12:00] LABS: Glucose,Whole Blood 85 mg/dL (75-99)
[2018-04-25] MEDS ORDERED: LACTATED RINGERS 1,000 ML IV SCH (15:11)
[2018-04-25] MEDS ORDERED: MIDAZOLAM 2 MG/2 ML VIAL IVP ONE (15:20)
[2018-04-25] MEDS ORDERED: IV FLUID CONTINUATION 1,000 ML IV ONE (15:23)
[2018-04-25] MEDS ORDERED: fentaNYL (PF) 50 MCG/ML 2 ML AMP ONE (17:25)
[2018-04-25] MEDS ORDERED: MIDAZOLAM 2 MG/2 ML VIAL ONE (17:25)
[2018-04-25] MEDS ORDERED: PROPOFOL 10 MG/ML 20 ML VIAL IV ONE (17:25)
[2018-04-25] MEDS ORDERED: LACTATED RINGERS 1,000 ML IV ONE (17:42)
[2018-04-25] MEDS ORDERED: LIDOCAINE URO-JET JELLY 2% 5 ML KIT URETHRAL ONE (17:42)
--- NOTE | 2018-04-25 17:55 | P.OP ---
Date of Procedure: 04/25/18 Preoperative Diagnosis: Left renal calculi Postoperative Diagnosis: Same Procedure(s) Performed: Cystoscopy, left ureteral stent removal Anesthesia: MAC Surgeon: Julio Gonzalez Estimated Blood Loss (ml): 0 IV fluids (ml): 50 Pathology: none sent Condition: stable Disposition: PACU Indications for Procedure: The patient is a 68-year-old white male who underwent left ureteroscopy for treatment of left renal calculi on 04/16/2018. He was subsequently admitted for acute pyelonephritis and now comes for stent removal. Operative Findings: Left ureteral stent, removed intact. Description of Procedure: The patient was taken to the operating room and placed in the supine position, with his legs frog legged. 2% lidocaine gel was administered intraurethrally. The 30 lens was used to introduce the 22-Italian Stortz cystoscopic sheath through the urethra and into the bladder under direct vision. The anterior urethra appeared normal. The prostatic urethra showed evidence of a high median bar. The bladder was entered, and the distal end of the left ureteral stent was readily visualized. This was grasped with grasping forceps and removed along with the cystoscope. The patient tolerated the procedure well was taken to the recovery room stable condition.
[2018-04-25 18:07] LABS: Glucose,Whole Blood 79 mg/dL (75-99)
[2018-04-25] MEDS: HYDROmorphone 1 MG/ML 1 ML SYRINGE IVP PRN ×2 (18:20→18:37)
[2018-04-25] MEDS: ASPIRIN 81 MG PO SCH (18:32)
[2018-04-25] MEDS: LEVOFLOXACIN 500 MG TAB PO SCH (19:39)
[2018-04-25 19:55] LABS: Glucose,Whole Blood 80 mg/dL (75-99)
[2018-04-25] MEDS: LORATADINE 10 MG TAB PO SCH (21:12)
[2018-04-25] MEDS: TAMSULOSIN 0.4 MG CAP.ER.24H PO SCH (21:12)
[2018-04-25 22:31] VITALS: RESP 16
[2018-04-25] MEDS: TEMAZEPAM 30 MG CAP PO SCH (22:56)
[2018-04-26] MEDS: MORPHINE SULFATE 4 MG/ML SYRINGE IV PRN ×3 (00:33→07:38)
[2018-04-26] MEDS: SODIUM CHLORIDE 0.45% 1,000 ML IV SCH ×3 (00:36→08:23)
[2018-04-26 07:07] LABS: Glucose,Whole Blood 109 mg/dL (75-99)
[2018-04-26] MEDS: ASPIRIN 81 MG PO SCH (07:38)
[2018-04-26] MEDS: LISINOPRIL 2.5 MG TAB PO SCH (07:38)
[2018-04-26] MEDS: PANTOPRAZOLE 40 MG TABLET PO SCH (07:38)
[2018-04-26] MEDS: CITALOPRAM HYDROBROMIDE 20 MG TAB PO SCH (07:38)
[2018-04-26] MEDS: metFORMIN 500 MG TAB PO SCH (07:38)
[2018-04-26 07:45] VITALS: BP 173/87; PULSE 59; TEMP 97.7
--- NOTE | 2018-04-26 07:59 | P.DS ---
Providers Date of admission: 04/23/18 12:30 Expected date of discharge: 04/26/18 Attending physician: Julio Gonzalez Primary care physician: Vinny [facility] Course: Upon admission, the patient was treated with IV Levaquin. He continued to be febrile for 2-3 days. A urine culture showed a Klebsiella UTI. Blood cultures were negative. He continued to experience suprapubic and left flank pain, and it was felt that the stent was at least partially responsible for this. He thus underwent cystoscopy with left ureteral stent removal on 04/25/2018. The following day, he was considerably more comfortable. He was afebrile with stable vital signs. Procedures: Cystoscopy, left ureteral stent removal on 04/25/2018. Patient Condition at Discharge: Good Plan - Discharge Summary New Discharge Prescriptions: New Levofloxacin [Levaquin] 500 mg PO DAILY #5 tab No Action Temazepam [Restoril] 30 mg PO HS Morphine Sulfate Ir [MSIR] 15 mg PO BID PRN PRN Reason: Pain Citalopram Hydrobromide [CeleXA] 40 mg PO DAILY Levocetirizine Dihydrochloride [Xyzal] 5 mg PO HS Tamsulosin [Flomax] 0.4 mg PO HS Hyoscyamine Sulfate [Levsin-Sl] 0.125 mg SL AC-TID PRN PRN Reason: Chest Pain metFORMIN HCL [Glucophage Xr] 500 mg PO BID Omeprazole 40 mg PO BID Aspirin EC [Ecotrin Low Dose] 81 mg PO QAM Lisinopril [Zestril] 2.5 mg PO QAM ALPRAZolam [Xanax] 0.25 mg PO DAILY PRN PRN Reason: FLYING Ibuprofen [Motrin] 800 mg PO HS PRN PRN Reason: Pain Focus Maculapro 1 tab PO QAM Fluticasone Nasal [place] [Flonase Nasal [place]] 2 spr EA NOSTRIL BID Insulin Glargine,Hum.rec.anlog [Ysabel Morales] See Protocol SQ DAILY PRN PRN Reason: Blood Sugar - High Potassium Citrate [Urocit-K] 10 meq PO DAILY Discharge Medication List Temazepam [Restoril] 30 mg PO HS 03/05/15 [History] Citalopram Hydrobromide [CeleXA] 40 mg PO DAILY 02/05/16 [History] Morphine Sulfate Ir [MSIR] 15 mg PO BID PRN 02/05/16 [History] Levocetirizine Dihydrochloride [Xyzal] 5 mg PO HS 07/13/16 [History] Tamsulosin [Flomax] 0.4 mg PO HS 07/13/16 [History] Hyoscyamine Sulfate [Levsin-Sl] 0.125 mg SL AC-TID PRN 08/04/16 [History] metFORMIN HCL [Glucophage Xr] 500 mg PO BID 11/27/16 [History] Aspirin EC [Ecotrin Low Dose] 81 mg PO QAM 12/22/16 [History] Omeprazole 40 mg PO BID 12/22/16 [History] Lisinopril [Zestril] 2.5 mg PO QAM 05/02/17 [History] ALPRAZolam [Xanax] 0.25 mg PO DAILY PRN 02/26/18 [History] Focus Maculapro 1 tab PO QAM 02/26/18 [History] Ibuprofen [Motrin] 800 mg PO HS PRN 02/26/18 [History] Fluticasone Nasal [place] [Flonase Nasal [place]] 2 spr EA NOSTRIL BID 03/26/18 [ History] Insulin Glargine,Hum.rec.anlog [Ysabel Morales] See Protocol SQ DAILY PRN 03/26 [History] Potassium Citrate [Urocit-K] 10 meq PO DAILY 04/23/18 [History] Levofloxacin [Levaquin] 500 mg PO DAILY #5 tab 04/26/18 [Rx] Follow up Appointment(s)/Referral(s): Vinny Pascal DO [Primary Care Provider] - 1-2 days Julio Gonzalez MD [STAFF PHYSICIAN] - 2 Weeks Activity/Diet/Wound Care/Special Instructions: Diet as tolerated. Activity as tolerated. Drink plenty of fluids. Discharge Disposition: HOME SELF-CARE
[2018-04-26] MEDS: FLUTICASONE 50MCG/SPRAY NASAL 16GM EA NOSTRIL SCH (08:20)
[2018-04-26] MEDS: LEVOFLOXACIN 500 MG TAB PO SCH (10:29)
--- NOTE | 2018-04-29 11:12 | CDI ---
Last Revision, August 2017 Documentation Clarification Form Date: 04/29/18 From: Ximena Holguin Phone: If you have a question regarding this query, please contact Radha Solares at [phone] between 8am and 5pm. Admit Date: 04/23/2018 12:30:00 PM Patient Name: Gaetano Lorenz Visit Number: [id number] Discharge Date: 04/26/18 ATTENTION: The Clinical Documentation Specialists (CDI) and [facility] Coding Staff appreciate your assistance in clarifying documentation. Please respond to the clarification below the line at the bottom and electronically sign. The CDI & [facility] Coding staff will review the response and follow-up if needed. Please note: Queries are made part of the Legal Health Record. If you have any questions, please contact the author of this message via ITS. Julio Lainez MD Sepsis is documented in the H&P by Dr. Mcgrath. History/Risk Factors: Patient was admitted for UTI and suprapubic pain due to ureteral stent. Patient has a history of renal calculi, hypertension and DM. Clinical Indicators: Leukocytosis & fever WBC/Left Shift 18.7/13.7 Lactic acid: 1.4 Blood cultures: No growth after 144 hours, P. 96, R. 20, BP 136/84 Vitals signs on admission: T. 98.9 on admission then up to 101.8 24 hours later , P. Antibiotics: IV Levofloxacin IV Bolus: Sodium Chloride 1,000 mls @ 999 mls/hr In your professional opinion, please clarify if these findings signify one of the following conditions, whether the condition is POA, and cause, if known: Sepsis, Present on Admission - Yes MTDD
== END 2018-04-26 10:35 | disposition home or self-care (01) | DRG 698 ==
LOC: EC 11:32 → 5MS5E 13:32 → OBSVTOIN 04-23 12:30
PROVIDERS: ADMIT Urology; ATTEND Urology
PROC: 0TP98DZ Removal of Intraluminal Device from Ureter, Via Natural or Artificial Opening Endoscopic (ICD-10-PCS; principal; 2018-04-26)
DX: T83.593A Infection and inflammatory reaction due to other urinary stents, initial encounter (principal); A41.50 Gram-negative sepsis, unspecified; N39.0 Urinary tract infection, site not specified; I10 Essential (primary) hypertension; K21.9 Gastro-esophageal reflux disease without esophagitis; G43.909 Migraine, unspecified, not intractable, without status migrainosus; K57.90 Diverticulosis of intestine, part unspecified, without perforation or abscess without bleeding; N42.9 Disorder of prostate, unspecified; E11.42 Type 2 diabetes mellitus with diabetic polyneuropathy; Z79.899 Other long term (current) drug therapy; Z79.82 Long term (current) use of aspirin; Z79.4 Long term (current) use of insulin; Z85.3 Personal history of malignant neoplasm of breast; Z85.828 Personal history of other malignant neoplasm of skin; Z88.6 Allergy status to analgesic agent; Z88.1 Allergy status to other antibiotic agents; Z88.0 Allergy status to penicillin; Z88.2 Allergy status to sulfonamides; Z88.8 Allergy status to other drugs, medicaments and biological substances; Z87.442 Personal history of urinary calculi; Z87.891 Personal history of nicotine dependence; Z90.49 Acquired absence of other specified parts of digestive tract; Z96.652 Presence of left artificial knee joint
CPT/HCPCS: 36415; 74018; 80053; 81001; 82150; 83036; 83605; 83690; 85025; 85610; 85730; 87040; 87077; 87086; 87186; 96361; 96365; 96375; 99285

== ENCOUNTER 2018-05-20 10:55 | Emergency (ER) | payer MEDICARE ==
[2018-05-20] MEDS ORDERED: SODIUM CHLORIDE 0.9% 1,000 ML IV ONE (11:13)
[2018-05-20] MEDS ORDERED: ONDANSETRON 4 MG/2 ML VIAL IVP STA (11:13)
[2018-05-20] MEDS ORDERED: KETOROLAC 30 MG/ML 1 ML VIAL IVP STA ×2 (11:13→12:33)
--- NOTE | 2018-05-20 11:18 | ED ---
General Adult HPI - General Chief complaint: Recheck/Abnormal Lab/Rx Stated complaint: Abd Pain Time Seen by Provider: 05/20/18 11:02 Source: patient Mode of arrival: ambulatory Limitations: no limitations - History of Present Illness Initial comments: 68-year-old male presenting with left flank pain has been present for the past 3 days. He states it is constant, nonradiating, not alleviated by anything exacerbated by touch. Patient states he had a left ureteral stent removed on 04/[address] Gonzalez. He states he had been asymptomatic up until 4 days prior. He states he was seen today at physician's office for his ALLERGY shots and asked that they do a UA. He states he was told that he was dehydrated and should report to the emergency department for IV hydration. He admits to chills and nausea but denies any fevers, abdominal pain, vomiting, diarrhea. He denies any hematuria or dysuria as well. When asked about the patient's approximate ALLERGY he does not recall his reaction but states he takes Motrin at home without any issue. He denies any chest pain shortness of breath or other anginal equivalents. - Related Data Home Medications Medication Instructions Recorded Confirmed Temazepam [Restoril] 30 mg PO HS 03/05/15 05/20/18 Citalopram Hydrobromide [CeleXA] 40 mg PO DAILY 02/05/16 05/20/18 Morphine Sulfate Ir [MSIR] 15 mg PO BID PRN 02/05/16 05/20/18 Levocetirizine Dihydrochloride 5 mg PO HS 07/13/16 05/20/18 [Xyzal] Tamsulosin [Flomax] 0.4 mg PO HS 07/13/16 05/20/18 Hyoscyamine Sulfate [Levsin-Sl] 0.125 mg SL AC-TID PRN 08/04/16 05/20/18 metFORMIN HCL [Glucophage Xr] 500 mg PO BID 11/27/16 05/20/18 Aspirin EC [Ecotrin Low Dose] 81 mg PO QAM 12/22/16 05/20/18 Omeprazole 40 mg PO BID 12/22/16 05/20/18 Lisinopril [Zestril] 2.5 mg PO QAM 05/02/17 05/20/18 ALPRAZolam [Xanax] 0.25 mg PO DAILY PRN 02/26/18 05/20/18 Focus Maculapro 1 tab PO QAM 02/26/18 05/20/18 Ibuprofen [Motrin] 800 mg PO HS PRN 02/26/18 05/20/18 Fluticasone Nasal [place] [Flonase 2 spr EA NOSTRIL BID 03/26/18 05/20/18 Nasal [place]] Insulin Glargine,Hum.rec.anlog See Protocol SQ DAILY PRN 03/26/18 05/20/18 [Toujeo Solostar] Potassium Citrate [Urocit-K] 10 meq PO DAILY 04/23/18 05/20/18 Allergies Allergy/AdvReac Type Severity Reaction Status Date / Time cephalexin monohydrate Allergy Rash/Hives Verified 05/20/18 11:15 [From Keflex] clarithromycin [From Biaxin] Allergy Unknown Verified 05/20/18 11:15 gentamicin [Gentamicin] Allergy Unknown Verified 05/20/18 11:15 naproxen Allergy Unknown Verified 05/20/18 11:15 Penicillins Allergy Anaphylaxis Verified 05/20/18 11:15 Sulfa (Sulfonamide Allergy Rash/Hives Verified 05/20/18 11:15 Antibiotics) promethazine AdvReac Nausea & Verified 05/20/18 11:15 Vomiting Review of Systems ROS Statement: Those systems with pertinent positive or pertinent negative responses have been documented in the HPI. Review of Systems Constitutional: Denies fever. Positive chills Eyes: Denies change in vision, Denies pain Ears, nose, mouth, throat: Denies headaches, Denies sore throat Cardiovascular: Denies chest pain. Denies palpitations Respiratory: Denies shortness of breath, Denies cough Gastrointestinal: Denies abdominal pain. Positive nausea. Negative vomiting, diarrhea. Genitourinary: Denies hematuria, Denies infections Musculoskeletal: Positive flank pain, Denies swelling Integumentary: Denies rash Neurological: Denies headache, focal weakness, focal numbness Psychiatric: Denies anxiety, Denies depression Hematologic/Lymphatic: Denies easy bleeding or bruising ROS Other: All systems not noted in ROS Statement are negative. Past Medical History Past Medical History: Cancer, Chest Pain / Angina, Diabetes Mellitus, GERD/ Reflux, Hypertension, Prostate Disorder Additional Past Medical History / Comment(s): migraines, diverticulosis, kidney stones, neurpathy hands & feet, low BACK PAIN-sees Dr. 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 RIGHT BREAST BIOPSY, TOTAL LT KNEE ; LT FOOT , LARA INGUINAL HERNIA, PERCUTANEOUS NEPHROLITHOTOMY. BILATERAL hand surgery. , back procedure for nerve endings and cortisone injections at [facility], colonoscopy.ESOPHGEAL DILATION, eye sx Past Anesthesia/Blood Transfusion Reactions: Motion Sickness Additional Past Anesthesia/Blood Transfusion Reaction / Comment(s): NEVER HAD ANY BLOOD TRANSFUSIONS Past Psychological History: No Psychological Hx Reported Smoking Status: Former smoker Past Alcohol Use History: None Reported Past Drug Use History: None Reported - Past Family History Father Family Medical History: Cancer Mother Family Medical History: Liver Disease Additional Family Medical History / Comment(s): Mother had hepatitis. General Exam - General Exam Comments Initial Comments: General: Awake, alert, No acute Distress HENT: Normocephalic. Atraumatic Eyes: PERRL. EOMI. No scleral icterus. No injected conjunctiva Neck: Full ROM Chest/Lungs: Clear to auscultation bilaterally. No wheezing, rhonchi, or rales Cardiac: Regular rate, rhythm. No murmurs or rubs. No abdominal bruit Abdomen/GI: Soft, nontender, nondistended. No rebound, guarding, or rigidity. Left CVA tenderness and positive left Fred's sign. Musculoskeletal: Full ROM Skin: Warm, dry, intact Neurologic: A/Ox3, no weakness, no sensory deficit, no abnormal gait, no coordination deficit Limitations: no limitations Course Vital Signs 05/20/18 05/20/18 11:00 13:14 Temperature 98.7 F 98.5 F Pulse Rate 66 80 Respiratory 20 18 Rate Blood Pressure 146/78 126/80 O2 Sat by Pulse 98 98 Oximetry Medical Decision Making - Medical Decision Making 68-year-old male presenting with left flank pain. Initial exam the patient is awake, alert, no acute distress. VSS. Patient had a recent urine culture that grew Klebsiella. His UA here was negative. Patient CT showed 44 mm stones within the kidney but no ureterolithiasis. The patient continued to have pain requested that I call his urologist Dr. Gonzalez. I spoke with Dr. Gonzalez who is agreeable to the plan of discharge and outpatient follow-up with urology. I had an extensive conversation with the patient about his pain and that it could be secondary to these kidney stones as Dr. Gonzalez stated that patients who have nephrolithiasis can experience intractable pain secondary to stones. The patient is oral morphine at home and I informed I would be unable to give him any more narcotics. I instructed the patient to call his pain medicine doctor and tell them that he would be taking his oral morphine more frequently for this knee pain. Patient verbalized understanding and he was agreeable to plan with outpatient follow-up.No further emergent workup indicated. The patient was given return to ED instructions. They were instructed to follow up with their primary care provider. Stable for discharge at this time. - Lab Data Result diagrams: 05/20/18 11:45 05/20/18 11:45 Lab Results 05/20/18 05/20/18 05/20/18 Range/Units 11:45 11:45 11:45 WBC 7.5 (3.8-10.6) k/uL RBC 3.84 L (4.30-5.90) m/uL Hgb 11.6 L (13.0-17.5) gm/dL Hct 37.5 L (39.0-53.0) % MCV 97.5 (80.0-100.0) fL MCH 30.2 (25.0-35.0) pg MCHC 30.9 L (31.0-37.0) g/dL RDW 21.6 H (11.5-15.5) % Plt Count 200 (150-450) k/uL Neutrophils % 49 % Lymphocytes % 32 % Monocytes % 10 % Eosinophils % 5 % Basophils % 1 % Neutrophils # 3.7 (1.3-7.7) k/uL Lymphocytes # 2.4 (1.0-4.8) k/uL Monocytes # 0.7 (0-1.0) k/uL Eosinophils # 0.4 (0-0.7) k/uL Basophils # 0.1 (0-0.2) k/uL Hypochromasia Slight Anisocytosis Moderate Macrocytosis Slight Sodium 139 (137-145) mmol/L Potassium 4.6 (3.5-5.1) mmol/L Chloride 106 (98-107) mmol/L Carbon Dioxide 27 (22-30) mmol/L Anion Gap 6 mmol/L BUN 15 (9-20) mg/dL Creatinine 0.70 (0.66-1.25) mg/dL Est GFR (CKD-EPI)AfAm >90 (>60 ml/min/1.73 sqM) Est GFR (CKD-EPI)NonAf >90 (>60 ml/min/1.73 sqM) Glucose 97 (74-99) mg/dL Calcium 9.1 (8.4-10.2) mg/dL Urine Color Light Yellow Urine Appearance Clear (Clear) Urine pH 6.0 (5.0-8.0) Ur Specific [place] 1.006 (1.001-1.035) Urine Protein Negative (Negative) Urine Glucose (UA) Negative (Negative) Urine Ketones Negative (Negative) Urine Blood Negative (Negative) Urine Nitrite Negative (Negative) Urine Bilirubin Negative (Negative) Urine Urobilinogen <2.0 (<2.0) mg/dL Ur Leukocyte Esterase Trace H (Negative) Urine WBC 3 (0-5) /hpf Urine Mucus Rare H (None) /hpf Disposition Clinical Impression: Left flank pain, Nephrolithiasis Disposition: HOME SELF-CARE Condition: Good Instructions: Dehydration (ED), Flank Pain (ED) Additional Instructions: Call Dr. Gonzalez today to make a follow up appointment. Call you pain doctor about increasing the frequency of your oral Morphine use. Increase water intake to 4-5 glasses of water per day. Is patient prescribed a controlled substance at d/c from ED?: No Referrals: Julio Gonzalez MD [STAFF PHYSICIAN] - 1-2 days Time of Disposition: 13:00
[2018-05-20 12:04] LABS: Appearance,Urine Clear (Clear); Bilirubin,Urine Negative (Negative); Blood,Urine Negative (Negative); Color,Urine Light Yellow; Glucose,Urine (UA) Negative (Negative); Ketones,Urine Negative (Negative); Leukocyte Esterase,Urine Trace (Negative); Mucus,Urine Rare /hpf; Nitrite,Urine Negative (Negative); Protein,Urine Negative (Negative); Specific Gravity,Urine 1.006 (1.001-1.035); Urobilinogen,Urine <2.0 mg/dL (<2.0); WBC,Urine 3 /hpf (0-5)
[2018-05-20 12:07] LABS: Anion Gap 6 mmol/L; Blood Urea Nitrogen 15 mg/dL (9-20); Calcium 9.1 mg/dL (8.4-10.2); Carbon Dioxide 27 mmol/L (22-30); Chloride 106 mmol/L (98-107); Glucose 97 mg/dL (74-99); Potassium 4.6 mmol/L (3.5-5.1); Sodium 139 mmol/L (137-145)
[2018-05-20 12:20] LABS: Anisocytosis Moderate; Basophils # (A) 0.1 k/uL (0-0.2); Basophils % (A) 1 %; Eosinophils # (A) 0.4 k/uL (0-0.7); Eosinophils % (A) 5 %; HCT 37.5 % (39.0-53.0); HGB 11.6 gm/dL (13.0-17.5); Hypochromasia Slight; Lymphocytes # (A) 2.4 k/uL (1.0-4.8); Lymphocytes % (A) 32 %; MCH 30.2 pg (25.0-35.0); MCHC 30.9 g/dL (31.0-37.0); MCV 97.5 fL (80.0-100.0); Macrocytosis Slight; Mean Platelet Volume 8.4; Monocytes # (A) 0.7 k/uL (0-1.0); Monocytes % (A) 10 %; Neutrophils # (A) 3.7 k/uL (1.3-7.7); Neutrophils % (A) 49 %; Platelet Count 200 k/uL (150-450); RBC 3.84 m/uL (4.30-5.90); RDW 21.6 % (11.5-15.5); WBC 7.5 k/uL (3.8-10.6)
--- NOTE | 2018-05-20 12:31 | CT ---
EXAMINATION TYPE: CT renal stones wo con DATE OF EXAM: 05/20/2018 COMPARISON: 03/26/2018 HISTORY: 68-year-old male with left-sided flank pain, status post left ureteral stent removal on 2017 TECHNIQUE: Contiguous axial scanning of the abdomen and pelvis without IV contrast. Coronal and sagit devyn reconstructions performed. CT DLP: 733 mGycm Automated exposure control for dose reduction was used. FINDINGS: Heart is borderline enlarged without pericardial effusion. Chronic pleural-parenchymal scarring at th e right base. Subcentimeter hypodensity right hepatic dome is unchanged, probable tiny cyst, too small for accurate CT characterization. Surgical material noted at the GE junction. There may be a slipped fundoplication wrap with recurrent hiatal hernia. Mild circumference wall thickening of the distal esophagus is noted. Gallbladder surgically absent. Stable 2.0 cm lesion anterior mid right kidney likely a cyst. Subcentimeter cortical hypodensity anterior lower pole left kidney too small for accurate CT characte rization, likely cyst. Intermediate density 2.5 cm lesion exophytic from the lower pole of the left k idney stable back to 05/30/2016 compatible with a complicated cyst. Nonobstructing calculi are present in the left kidney, approximately 4 calculi, largest measuring 4 mm. The previous dominant lower pole calculus is no longer present. No hydronephrosis and no suspicious calcifications seen along the cou rse of the ureters. Adrenal glands, spleen, and pancreas show no gross abnormality by noncontrast CT. Mild to moderate prostatic calcifications within the abdominal aorta and iliac arteries. No dilated small bowel, free fluid, or free air. No mesenteric or retroperitoneal lymphadenopathy. Scattered moderate stool burden and sigmoid diverticulosis. No pericolonic inflammatory change. Bladder urine distended. Prostate gland enlarged at 5.1 cm wide. No abnormal fluid collection in the pelvis or pelvic lymphadenopathy. Vagotomy clips are noted. Bones: Mild degenerative changes at the hips. Additional degenerative changes L5-S1. IMPRESSION: 1. THE PREVIOUS DOMINANT LEFT LOWER POLE RENAL CALCULUS HAS PASSED. APPROXIMATELY 4 NONOBSTRUCTIVE CA LCULI REMAIN IN THE LEFT KIDNEY MEASURING UP TO 4 MM. NO HYDRONEPHROSIS. 2. STABLE HYPODENSE RENAL LESIONS LIKELY CYSTS. 3. SURGICAL MATERIAL AT THE GE JUNCTION. THERE IS A SMALL HIATAL HERNIA PRESENT. CORRELATE FOR POSSIB LE SLIPPED FUNDOPLICATION. 4. MILD CIRCUMFERENTIAL WALL THICKENING OF THE LOWER ESOPHAGUS COULD REPRESENT ESOPHAGITIS. CORRELATE WITH PATIENT'S SYMPTOMS. 5. SIGMOID DIVERTICULOSIS.
[2018-05-20 13:15] VITALS: BP 126/80; PULSE 80; RESP 18; TEMP 98.5
== END 2018-05-20 13:15 | disposition home or self-care (01) ==
LOC: EC 10:55
DX: N20.0 Calculus of kidney (principal); I20.9 Angina pectoris, unspecified; E11.9 Type 2 diabetes mellitus without complications; K21.9 Gastro-esophageal reflux disease without esophagitis; I10 Essential (primary) hypertension; N42.9 Disorder of prostate, unspecified; G62.9 Polyneuropathy, unspecified; Z87.891 Personal history of nicotine dependence; Z87.19 Personal history of other diseases of the digestive system; Z85.828 Personal history of other malignant neoplasm of skin; Z85.3 Personal history of malignant neoplasm of breast; Z90.49 Acquired absence of other specified parts of digestive tract; Z98.890 Other specified postprocedural states; Z79.51 Long term (current) use of inhaled steroids; Z79.82 Long term (current) use of aspirin; Z79.84 Long term (current) use of oral hypoglycemic drugs; Z79.899 Other long term (current) drug therapy; Z88.0 Allergy status to penicillin; Z88.1 Allergy status to other antibiotic agents; Z88.2 Allergy status to sulfonamides; Z88.6 Allergy status to analgesic agent; Z88.8 Allergy status to other drugs, medicaments and biological substances
CPT/HCPCS: 36415; 80048; 85025; 81001; 74150; 99284; 96374; 96375; 96376; 96361; J2405; J1885

== ENCOUNTER 2018-07-21 14:40 | Inpatient (IN) | payer MEDICARE ==
--- NOTE | 2018-07-21 15:37 | ED ---
General Adult HPI - General Chief complaint: Dizziness Stated complaint: Dizzy Time Seen by Provider: 07/21/18 15:18 Source: patient, EMS, RN notes reviewed, old records reviewed Mode of arrival: EMS Limitations: no limitations - History of Present Illness Initial comments: 68-year-old male presents for evaluation of lightheadedness and dizziness. Patient has had several episodes over the past several weeks where he feels very lightheaded, checks his blood pressure and has noticed blood pressure be in the 50s systolic. He was evaluated by his figure refinisher and repairer told him to increase salt intake. Patient had an episode today where his blood pressure did drop into the 50s, he felt very lightheaded. He also felt some associated palpitations. Denies chest pain. Denied dyspnea. Denied abdominal pain. Denies headache. Denied fever or chills. Denies any preceding symptoms. Patient's called cardiology office and was instructed to present to the emergency department for evaluation. - Related Data Home Medications Medication Instructions Recorded Confirmed Temazepam [Restoril] 30 mg PO HS 03/05/15 07/21/18 Citalopram Hydrobromide [CeleXA] 40 mg PO DAILY 02/05/16 07/21/18 Morphine Sulfate Ir [MSIR] 15 mg PO BID PRN 02/05/16 07/21/18 Levocetirizine Dihydrochloride 5 mg PO HS 07/13/16 07/21/18 [Xyzal] Tamsulosin [Flomax] 0.4 mg PO HS 07/13/16 07/21/18 Hyoscyamine Sulfate [Levsin-Sl] 0.125 mg SL AC-TID PRN 08/04/16 07/21/18 metFORMIN HCL [Glucophage Xr] 500 mg PO BID 11/27/16 07/21/18 Aspirin EC [Ecotrin Low Dose] 81 mg PO QAM 12/22/16 07/21/18 Omeprazole 40 mg PO BID 12/22/16 07/21/18 Lisinopril [Zestril] 2.5 mg PO QAM 05/02/17 07/21/18 ALPRAZolam [Xanax] 0.25 mg PO DAILY PRN 02/26/18 07/21/18 Ibuprofen [Motrin] 800 mg PO HS PRN 02/26/18 07/21/18 Fluticasone Nasal [place] [Flonase 2 spr EA NOSTRIL BID 03/26/18 07/21/18 Nasal [place]] Insulin Glargine,Hum.rec.anlog See Protocol SQ DAILY PRN 03/26/18 07/21/18 [Tonikky Morales] Potassium Citrate [Urocit-K] 10 meq PO BID 04/23/18 07/21/18 Diclofenac Sodium [Voltaren Gel] 1 applic TOPICAL TID 07/21/18 07/21/18 predniSONE See Taper PO DIRECTED 07/21/18 07/21/18 Allergies Allergy/AdvReac Type Severity Reaction Status Date / Time cephalexin monohydrate Allergy Rash/Hives Verified 05/20/18 11:15 [From Keflex] clarithromycin [From Biaxin] Allergy Unknown Verified 05/20/18 11:15 gentamicin [Gentamicin] Allergy Unknown Verified 05/20/18 11:15 naproxen Allergy Unknown Verified 05/20/18 11:15 Penicillins Allergy Anaphylaxis Verified 05/20/18 11:15 Sulfa (Sulfonamide Allergy Rash/Hives Verified 05/20/18 11:15 Antibiotics) promethazine AdvReac Nausea & Verified 05/20/18 11:15 Vomiting Review of Systems ROS Statement: Those systems with pertinent positive or pertinent negative responses have been documented in the HPI. ROS Other: All systems not noted in ROS Statement are negative. Past Medical History Past Medical History: Cancer, Chest Pain / Angina, Diabetes Mellitus, GERD/ Reflux, Hypertension, Prostate Disorder Additional Past Medical History / Comment(s): migraines, diverticulosis, kidney stones, neurpathy hands & feet, low BACK PAIN-sees Dr. 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 RIGHT BREAST BIOPSY, TOTAL LT KNEE ; LT FOOT , LARA INGUINAL HERNIA, PERCUTANEOUS NEPHROLITHOTOMY. BILATERAL hand surgery. , back procedure for nerve endings and [facility]one [facility], colonoscopy.ESOPHGEAL DILATION, eye sx Past Anesthesia/Blood Transfusion Reactions: Motion Sickness Additional Past Anesthesia/Blood Transfusion Reaction / Comment(s): NEVER HAD ANY BLOOD TRANSFUSIONS Past Psychological History: Anxiety Smoking Status: Former smoker Past Alcohol Use History: None Reported Past Drug Use History: None Reported - Past Family History Father Family Medical History: Cancer Mother Family Medical History: Liver Disease Additional Family Medical History / Comment(s): Mother had hepatitis. General Exam Limitations: no limitations General appearance: alert, in no apparent distress Head exam: Present: atraumatic, normocephalic Eye exam: Present: normal appearance, PERRL ENT exam: Present: normal exam Neck exam: Present: normal inspection. Absent: tenderness, meningismus Respiratory exam: Present: normal lung sounds bilaterally. Absent: respiratory distress, wheezes Cardiovascular Exam: Present: regular rate, normal rhythm GI/Abdominal exam: Present: soft. Absent: distended, tenderness, guarding Extremities exam: Present: normal inspection, normal capillary refill. Absent: pedal edema Back exam: Present: normal inspection Neurological exam: Present: alert, oriented X3, CN II-XII intact. Absent: motor sensory deficit Psychiatric exam: Present: normal affect, normal mood Skin exam: Present: warm, dry, intact. Absent: cyanosis, diaphoretic Course Vital Signs 07/21/18 07/21/18 07/21/18 14:45 15:00 15:30 Temperature 98.2 F Pulse Rate 76 Respiratory 17 Rate Blood Pressure 136/81 136/81 136/67 O2 Sat by Pulse 96 94 L 95 Oximetry 07/21/18 07/21/18 07/21/18 16:00 16:30 17:00 Temperature Pulse Rate Respiratory Rate Blood Pressure 123/80 136/71 116/63 O2 Sat by Pulse 95 92 L 94 L Oximetry 07/21/18 17:30 Temperature Pulse Rate Respiratory Rate Blood Pressure 129/63 O2 Sat by Pulse Oximetry EKG Findings - EKG Comments: EKG Findings:: EKG: Normal sinus rhythm, rate of 62, OH interval 168, QRS duration 88, QTC 432, no ST segment elevation Medical Decision Making - Medical Decision Making 68-year-old male presenting for evaluation of lightheadedness and low blood pressure. Patient's blood pressure in the emergency Department is normal. He is well-appearing. No complaints time my evaluation. EKG is normal sinus with no ischemic changes, chest x-ray negative for acute cardiopulmonary disease. No focal pneumonia. Laboratory studies reveal leukocytosis at 19.8. Patient has had leukocytosis on evaluation of previous CBC in the past. He also has a lactic acid of 3.5 suggestive of hypoperfusion. Alk phos is elevated at 698 which is elevated in this patient although he has had chronic elevation in alkaline phosphatase. Urinalysis shows 4+ glucose, no hematuria, no signs of infection. Given the elevated lactate and white blood cell, did reevaluate the patient as I have no source of infection in this patient. Denies fever or chills. Denies cough. States he has had some abdominal pain which is chronic and unchanged. No nausea or vomiting. No dysuria. No hematuria. He has chronic back pain which again is unchanged from baseline. Cultures are obtained. I will hold antibiotics awaiting cultures and the development of fever or other signs of infection. Patient will be admitted for telemetry, and cardiology consultation. - Lab Data Result diagrams: 07/21/18 15:08 07/21/18 15:08 Lab Results 07/21/18 07/21/18 07/21/18 Range/Units 14:42 15:08 15:08 WBC 18.8 H (3.8-10.6) k/uL RBC 4.43 (4.30-5.90) m/uL Hgb 13.6 (13.0-17.5) gm/dL Hct 43.3 (39.0-53.0) % MCV 97.7 (80.0-100.0) fL MCH 30.6 (25.0-35.0) pg MCHC 31.3 (31.0-37.0) g/dL RDW 21.5 H (11.5-15.5) % Plt Count 289 (150-450) k/uL Neutrophils % (Manual) 79 % Band Neutrophils % 5 % Lymphocytes % (Manual) 13 % Monocytes % (Manual) 2 % Metamyelocytes % 2 % Myelocytes % 1 % Neutrophils # (Manual) 15.70 H (1.3-7.7) k/uL Lymphocytes # (Manual) 2.44 (1.0-4.8) k/uL Monocytes # (Manual) 0.38 (0-1.0) k/uL Metamyelocytes # (Man) 0.38 H (0) k/uL Myelocytes # (Manual) 0.19 H (0) k/uL Nucleated RBCs 1 H (0-0) /100 WBC Manual Slide Review Performed Polychromasia Present Hypochromasia Slight Hypochromasia (manual) Present Poikilocytosis (manual Present Anisocytosis Moderate Anisocytosis (manual) Present Macrocytosis Slight Ovalocytes Present Fragmented RBCs Present PT (9.0-12.0) sec INR (<1.2) APTT (22.0-30.0) sec Sodium (137-145) mmol/L Potassium (3.5-5.1) mmol/L Chloride (98-107) mmol/L Carbon Dioxide (22-30) mmol/L Anion Gap mmol/L BUN (9-20) mg/dL Creatinine (0.66-1.25) mg/dL Est GFR (CKD-EPI)AfAm (>60 ml/min/1.73 sqM) Est GFR (CKD-EPI)NonAf (>60 ml/min/1.73 sqM) Glucose (74-99) mg/dL Plasma Lactic Acid Elvin (0.7-2.0) mmol/L Calcium (8.4-10.2) mg/dL Magnesium (1.6-2.3) mg/dL Total Bilirubin (0.2-1.3) mg/dL AST (17-59) U/L ALT (21-72) U/L Alkaline Phosphatase (38-126) U/L Total Creatine Kinase 58 (55-170) U/L CK-MB (CK-2) 3.3 H (0.0-2.4) ng/mL CK-MB (CK-2) Rel Index 5.7 Troponin I <0.012 (0.000-0.034) ng/mL Total Protein (6.3-8.2) g/dL Albumin (3.5-5.0) g/dL Urine Color Yellow Urine Appearance Clear (Clear) Urine pH 5.0 (5.0-8.0) Ur Specific [place] 1.018 (1.001-1.035) Urine Protein Trace H (Negative) Urine Glucose (UA) 4+ H (Negative) Urine Ketones Trace H (Negative) Urine Blood Negative (Negative) Urine Nitrite Negative (Negative) Urine Bilirubin Negative (Negative) Urine Urobilinogen <2.0 (<2.0) mg/dL Ur Leukocyte Esterase Negative (Negative) 07/21/18 07/21/18 07/21/18 Range/Units 15:08 15:08 15:27 WBC (3.8-10.6) k/uL RBC (4.30-5.90) m/uL Hgb (13.0-17.5) gm/dL Hct (39.0-53.0) % MCV (80.0-100.0) fL MCH (25.0-35.0) pg MCHC (31.0-37.0) g/dL RDW (11.5-15.5) % Plt Count (150-450) k/uL Neutrophils % (Manual) % Band Neutrophils % % Lymphocytes % (Manual) % Monocytes % (Manual) % Metamyelocytes % % Myelocytes % % Neutrophils # (Manual) (1.3-7.7) k/uL Lymphocytes # (Manual) (1.0-4.8) k/uL Monocytes # (Manual) (0-1.0) k/uL Metamyelocytes # (Man) (0) k/uL Myelocytes # (Manual) (0) k/uL Nucleated RBCs (0-0) /100 WBC Manual Slide Review Polychromasia Hypochromasia Hypochromasia (manual) Poikilocytosis (manual Anisocytosis Anisocytosis (manual) Macrocytosis Ovalocytes Fragmented RBCs PT 10.8 (9.0-12.0) sec INR 1.1 (<1.2) APTT 22.3 (22.0-30.0) sec Sodium 137 (137-145) mmol/L Potassium 5.1 (3.5-5.1) mmol/L Chloride 101 (98-107) mmol/L Carbon Dioxide 22 (22-30) mmol/L Anion Gap 14 mmol/L BUN 28 H (9-20) mg/dL Creatinine 0.77 (0.66-1.25) mg/dL Est GFR (CKD-EPI)AfAm >90 (>60 ml/min/1.73 sqM) Est GFR (CKD-EPI)NonAf >90 (>60 ml/min/1.73 sqM) Glucose 220 H (74-99) mg/dL Plasma Lactic Acid Elvin 3.5 H* (0.7-2.0) mmol/L Calcium 10.3 H (8.4-10.2) mg/dL Magnesium 1.8 (1.6-2.3) mg/dL Total Bilirubin 0.6 (0.2-1.3) mg/dL AST 26 (17-59) U/L ALT 33 (21-72) U/L Alkaline Phosphatase 698 H (38-126) U/L Total Creatine Kinase (55-170) U/L CK-MB (CK-2) (0.0-2.4) ng/mL CK-MB (CK-2) Rel Index Troponin I (0.000-0.034) ng/mL Total Protein 7.0 (6.3-8.2) g/dL Albumin 4.5 (3.5-5.0) g/dL Urine Color Urine Appearance (Clear) Urine pH (5.0-8.0) Ur Specific [place] (1.001-1.035) Urine Protein (Negative) Urine Glucose (UA) (Negative) Urine Ketones (Negative) Urine Blood (Negative) Urine Nitrite (Negative) Urine Bilirubin (Negative) Urine Urobilinogen (<2.0) mg/dL Ur Leukocyte Esterase (Negative) Disposition Clinical Impression: Pre-syncope, Lactic acidosis, Leukocytosis Disposition: ADMITTED IP TO THIS [facility] Condition: Stable Is patient prescribed a controlled substance at d/c from ED?: No Referrals: Vinny Pascal DO [Primary Care Provider] - 1-2 days Decision to Admit Reason: Admit from EC Decision Date: 07/21/18 Decision Time: 18:02
[2018-07-21 15:44] LABS: Appearance,Urine Clear (Clear); Bilirubin,Urine Negative (Negative); Blood,Urine Negative (Negative); Color,Urine Yellow; Glucose,Urine (UA) 4+ (Negative); Ketones,Urine Trace (Negative); Leukocyte Esterase,Urine Negative (Negative); Nitrite,Urine Negative (Negative); Protein,Urine Trace (Negative); Specific Gravity,Urine 1.018 (1.001-1.035); Urobilinogen,Urine <2.0 mg/dL (<2.0)
--- NOTE | 2018-07-21 15:49 | XR ---
EXAMINATION TYPE: XR chest 2V DATE OF EXAM: 07/21/2018 COMPARISON: 12/07/2017 HISTORY: Vertigo. Syncope TECHNIQUE: Frontal and lateral views of the chest are obtained. FINDINGS: Heart and mediastinum are normal. Lungs are clear. Diaphragm is normal. Bony thorax is int act. IMPRESSION: Normal chest. No change.
[2018-07-21 15:54] LABS: ALT 33 U/L (21-72); AST 26 U/L (17-59); Albumin 4.5 g/dL (3.5-5.0); Alkaline Phosphatase 698 U/L (38-126); Anion Gap 14 mmol/L; Blood Urea Nitrogen 28 mg/dL (9-20); Calcium 10.3 mg/dL (8.4-10.2); Carbon Dioxide 22 mmol/L (22-30); Chloride 101 mmol/L (98-107); Glucose 220 mg/dL (74-99); Magnesium 1.8 mg/dL (1.6-2.3); Potassium 5.1 mmol/L (3.5-5.1); Sodium 137 mmol/L (137-145); Total Bilirubin 0.6 mg/dL (0.2-1.3)
[2018-07-21 15:55] LABS: INR 1.1 (<1.2); Partial Thromboplastin Time 22.3 sec (22.0-30.0); Prothrombin Time 10.8 sec (9.0-12.0)
[2018-07-21 16:00] LABS: Creatine Kinase 58 U/L (55-170)
[2018-07-21 16:04] LABS: Anisocytosis Moderate; HCT 43.3 % (39.0-53.0); HGB 13.6 gm/dL (13.0-17.5); Hypochromasia Slight; MCH 30.6 pg (25.0-35.0); MCHC 31.3 g/dL (31.0-37.0); MCV 97.7 fL (80.0-100.0); Macrocytosis Slight; Mean Platelet Volume 8.4; Platelet Count 289 k/uL (150-450); RBC 4.43 m/uL (4.30-5.90); RDW 21.5 % (11.5-15.5)
[2018-07-21 16:13] LABS: Creatine Kinase MB 3.3 ng/mL (0.0-2.4); Troponin I <0.012 ng/mL (0.000-0.034)
[2018-07-21] MEDS ORDERED: SODIUM CHLORIDE 0.9% 500 ML 500 ML IV ONE (16:51)
[2018-07-21] MEDS ORDERED: MORPHINE SULFATE 4 MG/ML SYRINGE IVP STA (16:59)
[2018-07-21 17:34] LABS: Metamyelocytes % 2 %
[2018-07-21 17:36] LABS: Band Neutrophils % 5 %; Metamyelocytes # (M) 0.38 k/uL (0); Monocytes # (M) 0.38 k/uL (0-1.0); Myelocytes # (M) 0.19 k/uL (0); Myelocytes % 1 %; Neutrophils % (M) 79 %; Nucleated Red Blood Cells 1 /100 WBC (0-0); Total Cells Counted 200
[2018-07-21 17:37] LABS: Lymphocytes # (M) 2.44 k/uL (1.0-4.8); WBC 18.8 k/uL (3.8-10.6)
[2018-07-21 17:38] LABS: Anisocytosis (M) Present; Hypochromasia (M) Present; Ovalocytes Present; Poikilocytosis (M) Present; Polychromasia Present; RBC Fragments Present
[2018-07-21] MEDS ORDERED: ONDANSETRON 4 MG/2 ML VIAL IVP PRN (18:02)
[2018-07-21] MEDS ORDERED: NALOXONE 0.4 MG/ML 1 ML VIAL IV PRN (18:02)
[2018-07-21] MEDS ORDERED: ACETAMINOPHEN TAB 325 MG TAB PO PRN (18:02)
[2018-07-21] MEDS: MORPHINE SULFATE 4 MG/ML SYRINGE IV PRN (20:20)
[2018-07-21 21:00] LABS: Glucose,Whole Blood 146 mg/dL (75-99)
[2018-07-21 21:49] VITALS: BMI 26.6
[2018-07-21] MEDS: SODIUM CHLORIDE 0.9% 1,000 ML IV SCH (22:09)
[2018-07-21] MEDS ORDERED: ALPRAZolam 0.25 MG TAB PO PRN (22:24)
[2018-07-21] MEDS ORDERED: PANTOPRAZOLE 40 MG TABLET PO STA (22:53)
[2018-07-21] MEDS: TAMSULOSIN 0.4 MG CAP.ER.24H PO SCH (23:31)
[2018-07-21] MEDS: TEMAZEPAM 30 MG CAP PO SCH (23:31)
[2018-07-21] MEDS: HEPARIN SODIUM,PORCINE 5,000 UNIT/ML 1 ML VIAL SQ SCH (23:33)
[2018-07-22] MEDS: MORPHINE SULFATE 4 MG/ML SYRINGE IV PRN ×2 (01:03→06:39)
[2018-07-22 05:59] LABS: Glucose,Whole Blood 170 mg/dL (75-99)
[2018-07-22 06:22] LABS: Anisocytosis Moderate; Basophils # (A) 0.1 k/uL (0-0.2); Basophils % (A) 1 %; Eosinophils # (A) 0.2 k/uL (0-0.7); Eosinophils % (A) 1 %; HCT 37.2 % (39.0-53.0); HGB 12.1 gm/dL (13.0-17.5); Hypochromasia Slight; Lymphocytes # (A) 2.8 k/uL (1.0-4.8); Lymphocytes % (A) 18 %; MCHC 32.6 g/dL (31.0-37.0); MCV 98.2 fL (80.0-100.0); Macrocytosis Slight; Mean Platelet Volume 7.7; Monocytes # (A) 1.3 k/uL (0-1.0); Monocytes % (A) 8 %; Neutrophils # (A) 11.1 k/uL (1.3-7.7); Neutrophils % (A) 70 %; Platelet Count 276 k/uL (150-450); RBC 3.79 m/uL (4.30-5.90); RDW 21.2 % (11.5-15.5); WBC 15.8 k/uL (3.8-10.6)
[2018-07-22 06:30] LABS: ALT 28 U/L (21-72); AST 15 U/L (17-59); Albumin 3.2 g/dL (3.5-5.0); Alkaline Phosphatase 517 U/L (38-126); Anion Gap 7 mmol/L; Blood Urea Nitrogen 25 mg/dL (9-20); Calcium 8.9 mg/dL (8.4-10.2); Carbon Dioxide 26 mmol/L (22-30); Chloride 102 mmol/L (98-107); Glucose 183 mg/dL (74-99); Potassium 4.2 mmol/L (3.5-5.1); Sodium 135 mmol/L (137-145); Total Bilirubin 0.4 mg/dL (0.2-1.3); Total Protein 5.5 g/dL (6.3-8.2)
[2018-07-22] MEDS: PANTOPRAZOLE 40 MG TABLET PO SCH ×2 (06:40→17:10)
[2018-07-22] MEDS: INSULIN ASPART 100 UNIT/ML 1 ML 10 ML VIAL SQ SCH ×4 (06:40→21:35)
[2018-07-22] MEDS: HEPARIN SODIUM,PORCINE 5,000 UNIT/ML 1 ML VIAL SQ SCH ×2 (08:22→21:34)
[2018-07-22] MEDS: FLUTICASONE 50MCG/SPRAY NASAL 16GM EA NOSTRIL SCH ×2 (08:22→21:34)
[2018-07-22] MEDS: LISINOPRIL 2.5 MG TAB PO SCH (08:22)
[2018-07-22] MEDS: ASPIRIN 81 MG PO SCH (08:22)
[2018-07-22] MEDS: CITALOPRAM HYDROBROMIDE 20 MG TAB PO SCH (08:22)
[2018-07-22] MEDS: SODIUM CHLORIDE 0.9% 1,000 ML IV SCH ×3 (08:23→21:42)
[2018-07-22] MEDS: POTASSIUM CITRATE 10 MEQ TABLET.ER PO SCH (08:23)
[2018-07-22] MEDS ORDERED: MORPHINE SULFATE IR 15 MG TABLET PO PRN (10:12)
[2018-07-22] MEDS: ATORVASTATIN 40 MG TAB PO SCH (10:30)
[2018-07-22 10:57] LABS: Cholesterol 138 mg/dL (<200); HDL Cholesterol 67 mg/dL (40-60); LDL Cholesterol,Calculated 44 mg/dL (0-99); Triglycerides 135 mg/dL (<150)
--- NOTE | 2018-07-22 10:58 | ECHOF ---
Referral Reason:htn MEASUREMENTS -------- HEIGHT: 170.2 cm WEIGHT: 78.9 kg BP: 120/60 RVIDd: 3.2 cm (< 3.3) IVSd: 1.2 cm (0.6 - 1.1) LVIDd: 5.3 cm (3.9 - 5.3) LVPWd: 1.1 cm (0.6 - 1.1) IVSs: 1.9 cm LVIDs: 3.6 cm LVPWs: 1.8 cm LA Diam: 3.8 cm (2.7 - 3.8) LAESV Index (A-L): 39.34 ml/m Ao Diam: 4.1 cm (2.0 - 3.7) AV Cusp: 2.1 cm (1.5 - 2.6) MV EXCURSION: 18.742 mm (> 18.000) MV EF SLOPE: 66 mm/s (70 - 150) EPSS: 0.5 cm MV E Brent: 0.89 m/s MV DecT: 185 ms MV A Brent: 1.03 m/s MV E/A Ratio: 0.86 FINDINGS -------- Sinus rhythm. This was a technically adequate study. The left ventricular size is normal. There is borderline concentric left ventricular hypertrophy. Overall left ventricular systolic function is normal with, an EF between 55 - 60 %. The right ventricle is normal in size. LA is midly dilated 29-33ml/m2. The right atrium is normal in size. There is mild aortic valve sclerosis. The mitral valve leaflets are mildly thickened. Mild mitral annular calcification present. Mild m itral regurgitation is present. The tricuspid valve appears structurally normal. Trace/mild (physiologic) pulmonic regurgitation. The aortic root is dilated measuring 4.1cm. Normal inferior vena cava with normal inspiratory collapse consistent with estimated right atrial pre ssure of 5 mmHg. There is no pericardial effusion. CONCLUSIONS -------- 1. Sinus rhythm. 2. This was a technically adequate study. 3. The left ventricular size is normal. 4. There is borderline concentric left ventricular hypertrophy. 5. Overall left ventricular systolic function is normal with, an EF between 55 - 60 %. 6. The right ventricle is normal in size. 7. LA is midly dilated 29-33ml/m2. 8. The right atrium is normal in size. 9. There is mild aortic valve sclerosis. 10. The mitral valve leaflets are mildly thickened. 11. Mild mitral annular calcification present. 12. Mild mitral regurgitation is present. 13. The tricuspid valve appears structurally normal. 14. Trace/mild (physiologic) pulmonic regurgitation. 15. The aortic root is dilated measuring 4.1cm. 16. Normal inferior vena cava with normal inspiratory collapse consistent with estimated right atrial pressure of 5 mmHg. 17. There is no pericardial effusion. CUSTOMER QUALITY ENGINEER: Nola Rodriguez RDCS
[2018-07-22] MEDS: IOPAMIDOL-300 CONTRAST 30 ML VIAL (ORAL USE) PO PRN ×2 (11:05→12:08)
[2018-07-22 11:29] LABS: Glucose,Whole Blood 124 mg/dL (75-99)
[2018-07-22] MEDS: AZTREONAM 2 GM in SODIUM CHLORIDE 0.9% 100 ML IVPB SCH ×2 (12:05→21:33)
--- NOTE | 2018-07-22 13:43 | CT ---
EXAMINATION TYPE: CT abdomen pelvis w con DATE OF EXAM: 07/22/2018 COMPARISON: 05/20/2018 and 04/02/2017 HISTORY: 68-year-old male with left lower quadrant abdominal pain and tenderness. Recent renal stone removal, left flank pain. Possible infection. TECHNIQUE: Contiguous axial scanning of the abdomen and pelvis following administration of 100 ml Iso devendra 300 IV contrast. Delayed images through the kidneys and coronal/sagittal reconstructions perform ed. CT DLP: 908.2 mGycm Automated exposure control for dose reduction was used. FINDINGS: Heart is upper limits of normal in size without pericardial effusion. Scattered areas of atelectasis or scarring in the lower lungs without pleural effusion. Postsurgical changes at the GE junction with suggestion of a small hiatal hernia and mild circumferen tial wall thickening redemonstrated along the distal esophagus. Scattered subcentimeter hypodensities within the liver too small for accurate CT characterization, li kristin cysts. Mild intrahepatic biliary ductal dilatation. The bile duct is dilated to 1.6 cm, possibly secondary t o postcholecystectomy status. Previously, the bile duct measured 1.4 cm. Portal venous system is dietrich nt. Small focal area of hypodensity measuring 8 mm in the pancreatic head region, axial image 33 and sagi ttal image 61 could represent ectasia versus side branch radicle. Additionally, a 1.1 cm cystic area in the uncinate process of the pancreas. Both of these appear to have been present back to 04/02/2017, refer to axial 46 and 54, respectively of the patient's 04/02/2017 exam. Bilateral renal cysts are redemonstrated, measuring up to 2.1 cm on the right and 2.5 cm on the left. This largest renal cyst on the left is exophytic from the lower pole and shows intermediate attenuat ion but no enhancement suggesting a complicated cyst. There is mild pelviectasis on the left and minimal indistinctness of the upper left ureter that could represent some mild inflammation, refractory to images 44 and 45 in contradistinction to the contral ateral side. Otherwise, symmetric uptake and excretion of contrast from both kidneys. A couple puncta te 2 to 3 mm calculi are present on the left, refer to axial image 41 and 42. No dilated small bowel, free fluid, or free air. No mesenteric or retroperitoneal lymphadenopathy. Scattered moderate stool particularly in the right hemicolon. Left-sided colonic diverticulosis with redundant sigmoid colon. No pericolonic inflammatory change seen. Some focal short segment areas of p eristaltic contractions are noted along the sigmoid. Normal appendix. Moderate atherosclerotic calcifications within the abdominal aorta and iliac arteries. Bladder underdistended. Prostate gland measures 4.9 cm wide. No abnormal fluid collection in the pelv is or pelvic lymphadenopathy. Bones: Mild degenerative changes at the hips. Degenerative changes lower lumbar spine. No osseous krista tructive process. IMPRESSION: 1. MILD LEFT-SIDED PELVIECTASIS AND SOME ASYMMETRIC MILD HAZINESS AROUND THE UPPER LEFT URETER COULD REPRESENT MILD INFLAMMATION SUCH SECONDARY TO AN ASCENDING UTI. OVERALL RENAL ENHANCEMENT APPEARS NORMAL BY CT ARGUING AGAINST PYELONEPHRITIS. 2. A COUPLE PUNCTATE 2 TO 3 MM NONOBSTRUCTIVE CALCULI REMAIN ON THE LEFT. 3. BILATERAL RENAL CYSTS. 4. LEFT-SIDED COLONIC DIVERTICULOSIS WITHOUT EVIDENCE FOR ACUTE DIVERTICULITIS. 5. MILD INTRAHEPATIC AND EXTRAHEPATIC BILIARY DUCTAL DILATATION LIKELY DUE TO POSTCHOLECYSTECTOMY STA TUS. CORRELATE FOR NORMAL ALKALINE PHOSPHATASE AND BILIRUBIN LEVELS. 6. SIMILAR CHANGES OF POSSIBLE SLIPPED ROXANA WRAP. PERSISTENT MILD CIRCUMFERENTIAL WALL THICKENING D ISTAL ESOPHAGUS COULD REPRESENT ESOPHAGITIS.
--- NOTE | 2018-07-22 14:57 | CONS ---
CONSULTATION Mr. Lorenz is a 68-year-old male who was admitted through the emergency room for an episode of sudden drop in his blood pressure, associated with dizziness. The patient is followed by Dr. Young on a regular basis, has a history of mild hypertension and arrhythmia. For the last couple weeks, he has been having episode of feeling dizzy. His blood pressure drops. He has abdominal discomfort and he felt short of breath. He had a history of visual disturbances that he was told he had mini strokes, but no history of seizure. His blood pressure apparently dropping to the 50 mmHg systolic. Because of that, he came into the emergency room, subsequently admitted. On a regular basis, he is quite active physically without associated symptoms. He denies any exertional chest discomfort. He has no documented history of obstructive coronary artery disease or heart failure according to him, although no workup is available to me at this time. He was recently asked to take extra salt to stabilize his blood pressure, but in spite of that, his symptoms have persisted. Patient has recent episode of nephrolithiasis requiring stent placement by Dr. Gonzalez and apparently he still has some stones. He continued to have the abdominal discomfort and he feels nauseated. He denies any PND, orthopnea. No peripheral edema. No syncope. He has a history of obstructive sleep apnea and he continues to be on the CPAP. On presentation, he was noted to have leukocytosis as evidence of elevation of his lactic acid. MEDICATION: At home include metformin 500 mg twice a day, Restoril, Flomax 0.4 mg daily, omeprazole, lisinopril 2.5 mg daily, Xyzal, Motrin on a p.r.n. basis, Voltaren,. Celexa and aspirin. His coronary risk factors are remarkable for the history of borderline hypertension, diabetes. His lipid profile is not available. He is a nonsmoker. PHYSICAL EXAMINATION: He is a 68-year-old male, alert, oriented, in no apparent distress. Blood pressure 156/70 with a heart rate in the 60s. HEAD: Normocephalic. EYES: Sclerae nonicteric. NECK: Good upstroke, no bruit, no extension. LUNGS: Clear to auscultation. HEART: Regular rate and rhythm. S1, S2. No S3. No rub or gallop appreciated. ABDOMEN: Soft, mild generalized tenderness. No rebound. Positive bowel sounds. EXTREMITIES: No edema, intact pulses. LAB DATA: On presentation, white blood cell of 18.8, BUN and creatinine 28 and 0.77. His lactic acid was 3.5, it is down to 2.4. Today's BUN creatinine 25 and 0.73, and his white blood cell is down to 15.8. His EKG reveals sinus mechanism, normal axis, intervals. No acute changes. His chest x-ray shows no acute infiltrate. IMPRESSION: 1. Episode of sudden drop in the blood pressure of unclear etiology. No evidence to suggest an ischemic event and no evidence of associated arrhythmia. 2. Abnormal discomfort of unclear etiology with leukocytosis and elevated lactic acid. 3. History of diabetes. 4. Prior history of hypertension. 5. History of nephrolithiasis. RECOMMENDATION: From the cardiac standpoint, I will obtain echocardiogram with Doppler, will evaluate his orthostasis. Will continue IV hydration. Follow his lab data and depending on his progress, further recommendation will be made. MMODL / IJN: [id number] /
[2018-07-22 15:17] LABS: Hemoglobin A1C 6.6 % (4.0-6.0)
--- NOTE | 2018-07-22 15:20 | P.HPIM ---
History of Present Illness H&P Date: 07/22/18 Chief Complaint: low blood pressure 68-year-old male who presented to the emergency room on 07/21/2018 after speaking with his floor cleaner via the phone for low blood pressure. The patient was evaluated by Dr. Pascal, his primary care physician approximately week ago and at that time he brought a log of all his blood pressures. The majority of his blood pressures were within normal limits. He did however have a couple hypotensive pressures documented. He was instructed to increase his salt intake and fluid intake. The patient states over the past week, he has had four episodes of hypotensive 50/30s. He reports he felt lightheaded and dizzy. He denied chest pain or pressure. Denied shortness of breath. He states he checked his significant others blood pressure on his machine and hers was in the 120/70s. He checked his again and it was still low. He called his floor cleaner who instructed him to come to the emergency room. Chest x-ray was negative for acute process. Laboratory data upon admission reveals white count of 18.8. Hemoglobin 13.6. Platelet count 289. Sodium 137. Potassium 5.1. BUN 28. Creatinine 0.77. Glucose 220. Lactic acid 3.5. Repeat lactic acid 2.4 and 1.1. Magnesium 1.8. AST 26. ALT 33. Alkaline phosphatase 698, which has been chronically elevated for years. Troponin negative 1. Urinalysis revealed trace proteinuria, 4+ glucose, trace ketones. Echocardiogram was completed revealing ejection fraction between 55 and 60% and mild mitral regurgitation. The patient was seen and examined at the bedside with Dr. Pascal. The patient is awake and alert. He denies chest pain or pressure. Denies shortness of breath. Denies any further episodes of dizziness or lightheadedness. He reports left flank pain. The patient has a known history of nonobstructing kidney stones. Denies urinary urgency, frequency, or dysuria. He does report some malodorous urine at times. Review of Systems Those systems with pertinent positive or pertinent negative responses have been documented in the HPI Past Medical History Past Medical History: Cancer, Chest Pain / Angina, Diabetes Mellitus, GERD/ Reflux, Hypertension, Prostate Disorder Additional Past Medical History / Comment(s): migraines, diverticulosis, kidney stones, neurpathy hands & feet, low BACK PAIN-sees Dr. 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 RIGHT BREAST BIOPSY, TOTAL LT KNEE ; LT FOOT , LARA INGUINAL HERNIA, PERCUTANEOUS NEPHROLITHOTOMY. BILATERAL hand surgery. , back procedure for nerve endings and [facility]one [facility], colonoscopy.ESOPHGEAL DILATION, eye sx Past Anesthesia/Blood Transfusion Reactions: Motion Sickness Additional Past Anesthesia/Blood Transfusion Reaction / Comment(s): NEVER HAD ANY BLOOD TRANSFUSIONS Past Psychological History: Anxiety Additional Psychological History / Comment(s): . Smoking Status: Former smoker Past Alcohol Use History: None Reported Additional Past Alcohol Use History / Comment(s): STARTED SMOKING AT AGE 12, SMOKED 1 PPD, QUIT 2012 Past Drug Use History: None Reported - Past Family History Father Family Medical History: Cancer Mother Family Medical History: Liver Disease Additional Family Medical History / Comment(s): Mother had hepatitis. Medications and Allergies Home Medications Medication Instructions Recorded Confirmed Type Temazepam [Restoril] 30 mg PO HS 03/05/15 07/21/18 History Citalopram Hydrobromide [CeleXA] 40 mg PO DAILY 02/05/16 07/21/18 History Morphine Sulfate Ir [MSIR] 15 mg PO BID PRN 02/05/16 07/21/18 History Levocetirizine Dihydrochloride 5 mg PO HS 07/13/16 07/21/18 History [Xyzal] Tamsulosin [Flomax] 0.4 mg PO HS 07/13/16 07/21/18 History Hyoscyamine Sulfate [Levsin-Sl] 0.125 mg SL AC-TID PRN 08/04/16 07/21/18 History metFORMIN HCL [Glucophage Xr] 500 mg PO BID 11/27/16 07/21/18 History Aspirin EC [Ecotrin Low Dose] 81 mg PO QAM 12/22/16 07/21/18 History Omeprazole 40 mg PO BID 12/22/16 07/21/18 History Lisinopril [Zestril] 2.5 mg PO QAM 05/02/17 07/21/18 History ALPRAZolam [Xanax] 0.25 mg PO DAILY PRN 02/26/18 07/21/18 History Ibuprofen [Motrin] 800 mg PO HS PRN 02/26/18 07/21/18 History Fluticasone Nasal [place] [Flonase 2 spr EA NOSTRIL BID 03/26/18 07/21/18 History Nasal [place]] Insulin Glargine,Hum.rec.anlog See Protocol SQ DAILY PRN 03/26/18 07/21/18 History [Toujeo Solostar] Potassium Citrate [Urocit-K] 10 meq PO BID 04/23/18 07/21/18 History Diclofenac Sodium [Voltaren Gel] 1 applic TOPICAL TID 07/21/18 07/21/18 History Allergies Allergy/AdvReac Type Severity Reaction Status Date / Time cephalexin monohydrate Allergy Rash/Hives Verified 05/20/18 11:15 [From Keflex] clarithromycin [From Biaxin] Allergy Unknown Verified 05/20/18 11:15 gentamicin [Gentamicin] Allergy Unknown Verified 05/20/18 11:15 naproxen Allergy Unknown Verified 05/20/18 11:15 Penicillins Allergy Anaphylaxis Verified 05/20/18 11:15 Sulfa (Sulfonamide Allergy Rash/Hives Verified 05/20/18 11:15 Antibiotics) promethazine AdvReac Nausea & Verified 05/20/18 11:15 Vomiting Physical Exam Vitals: Vital Signs Temp Pulse Pulse Resp BP BP Pulse Ox 07/22/18 12:32 98.5 F 58 L 18 112/66 92 L 07/22/18 08:23 96.8 F L 59 L 18 161/74 94 L 07/22/18 04:45 15 07/22/18 04:43 97.8 F 68 15 156/77 95 07/22/18 01:02 97.9 F 70 126/68 97 07/22/18 00:23 16 07/21/18 21:31 98.2 F 62 16 129/66 97 07/21/18 20:23 16 122/75 07/21/18 18:30 152/85 88 L 07/21/18 17:30 129/63 07/21/18 17:00 116/63 94 L 07/21/18 16:30 136/71 92 L 07/21/18 16:00 123/80 95 07/21/18 15:30 136/67 95 07/21/18 15:00 136/81 94 L 07/21/18 14:45 98.2 F 76 17 136/81 96 Intake and Output 07/21/18 07/22/18 07/22/18 22:59 06:59 14:59 Intake Total 255 Balance 255 Intake: Intake, IV Titration 75 Amount Sodium Chloride 0.9% 1, 75 000 ml @ 75 mls/hr IV . [id number] [facility] Rx#:[id number] Oral 180 Other: Voiding Method Toilet Toilet # Voids 1 Weight 77.337 kg 79 kg GENERAL: This is a 68-year-old male in no apparent distress at the time of examination. HEENT: Head is atraumatic, normocephalic. Pupils are equal, round, and reactive to light. Sclerae anicteric. Conjunctivae are clear. Mucus membranes of the mouth are moist. Neck is supple. RESPIRATORY: Clear to auscultation. No wheezes, rales, or rhonchi. No use of accessory muscles. Patient maintaining oxygen saturation greater than 92%. No chest wall tenderness is noted on palpation or with deep breathing. CARDIOVASCULAR: Regular rate and rhythm. S1 and S2 noted. No JVD noted. No S3 or S4 noted. GASTROINTESTINAL: No distention noted. Abdomen soft and round. Normal active bowel sounds auscultated x 4 quadrants. No pain or tenderness noted upon palpation. INTEGUMENTARY: No cyanosis. No jaundice. No rashes noted. No cellulitis noted. EXTREMITIES: 2+ peripheral pulses. No evidence of peripheral edema. No calf tenderness noted. NEUROLOGIC: Cranial nerves II-XII intact. PSYCHIATRIC: Awake, alert, and oriented X 3. Appropriate affect. Intact judgement and insight. Results CBC & Chem 7: 07/22/18 05:38 07/22/18 05:38 Labs: Abnormal Lab Results - Last 24 Hours (Table) 07/21/18 07/21/18 07/21/18 Range/Units 14:42 15:08 15:08 WBC 18.8 H (3.8-10.6) k/uL RBC (4.30-5.90) m/uL Hgb (13.0-17.5) gm/dL Hct (39.0-53.0) % RDW 21.5 H (11.5-15.5) % Neutrophils # (1.3-7.7) k/uL Neutrophils # (Manual) 15.70 H (1.3-7.7) k/uL Monocytes # (0-1.0) k/uL Metamyelocytes # (Man) 0.38 H (0) k/uL Myelocytes # (Manual) 0.19 H (0) k/uL Nucleated RBCs 1 H (0-0) /100 WBC Sodium (137-145) mmol/L BUN (9-20) mg/dL Glucose (74-99) mg/dL POC Glucose (mg/dL) (75-99) mg/dL Plasma Lactic Acid Elvin (0.7-2.0) mmol/L Calcium (8.4-10.2) mg/dL AST (17-59) U/L Alkaline Phosphatase (38-126) U/L CK-MB (CK-2) 3.3 H (0.0-2.4) ng/mL Total Protein (6.3-8.2) g/dL Albumin (3.5-5.0) g/dL HDL Cholesterol (40-60) mg/dL Urine Protein Trace H (Negative) Urine Glucose (UA) 4+ H (Negative) Urine Ketones Trace H (Negative) 07/21/18 07/21/18 07/21/18 Range/Units 15:08 15:27 19:59 WBC (3.8-10.6) k/uL RBC (4.30-5.90) m/uL Hgb (13.0-17.5) gm/dL Hct (39.0-53.0) % RDW (11.5-15.5) % Neutrophils # (1.3-7.7) k/uL Neutrophils # (Manual) (1.3-7.7) k/uL Monocytes # (0-1.0) k/uL Metamyelocytes # (Man) (0) k/uL Myelocytes # (Manual) (0) k/uL Nucleated RBCs (0-0) /100 WBC Sodium (137-145) mmol/L BUN 28 H (9-20) mg/dL Glucose 220 H (74-99) mg/dL POC Glucose (mg/dL) (75-99) mg/dL Plasma Lactic Acid Elvin 3.5 H* 2.4 H* (0.7-2.0) mmol/L Calcium 10.3 H (8.4-10.2) mg/dL AST (17-59) U/L Alkaline Phosphatase 698 H (38-126) U/L CK-MB (CK-2) (0.0-2.4) ng/mL Total Protein (6.3-8.2) g/dL Albumin (3.5-5.0) g/dL HDL Cholesterol (40-60) mg/dL Urine Protein (Negative) Urine Glucose (UA) (Negative) Urine Ketones (Negative) 07/21/18 07/22/18 07/22/18 Range/Units 20:58 05:38 05:38 WBC 15.8 H (3.8-10.6) k/uL RBC 3.79 L (4.30-5.90) m/uL Hgb 12.1 L (13.0-17.5) gm/dL Hct 37.2 L (39.0-53.0) % RDW 21.2 H (11.5-15.5) % Neutrophils # 11.1 H (1.3-7.7) k/uL Neutrophils # (Manual) (1.3-7.7) k/uL Monocytes # 1.3 H (0-1.0) k/uL Metamyelocytes # (Man) (0) k/uL Myelocytes # (Manual) (0) k/uL Nucleated RBCs (0-0) /100 WBC Sodium 135 L (137-145) mmol/L BUN 25 H (9-20) mg/dL Glucose 183 H (74-99) mg/dL POC Glucose (mg/dL) 146 H (75-99) mg/dL Plasma Lactic Acid Elvin (0.7-2.0) mmol/L Calcium (8.4-10.2) mg/dL AST 15 L (17-59) U/L Alkaline Phosphatase 517 H (38-126) U/L CK-MB (CK-2) (0.0-2.4) ng/mL Total Protein 5.5 L (6.3-8.2) g/dL Albumin 3.2 L (3.5-5.0) g/dL HDL Cholesterol (40-60) mg/dL Urine Protein (Negative) Urine Glucose (UA) (Negative) Urine Ketones (Negative) 07/22/18 07/22/18 07/22/18 Range/Units 05:57 10:20 11:25 WBC (3.8-10.6) k/uL RBC (4.30-5.90) m/uL Hgb (13.0-17.5) gm/dL Hct (39.0-53.0) % RDW (11.5-15.5) % Neutrophils # (1.3-7.7) k/uL Neutrophils # (Manual) (1.3-7.7) k/uL Monocytes # (0-1.0) k/uL Metamyelocytes # (Man) (0) k/uL Myelocytes # (Manual) (0) k/uL Nucleated RBCs (0-0) /100 WBC Sodium (137-145) mmol/L BUN (9-20) mg/dL Glucose (74-99) mg/dL POC Glucose (mg/dL) 170 H 124 H (75-99) mg/dL Plasma Lactic Acid Elvin (0.7-2.0) mmol/L Calcium (8.4-10.2) mg/dL AST (17-59) U/L Alkaline Phosphatase (38-126) U/L CK-MB (CK-2) (0.0-2.4) ng/mL Total Protein (6.3-8.2) g/dL Albumin (3.5-5.0) g/dL HDL Cholesterol 67 H (40-60) mg/dL Urine Protein (Negative) Urine Glucose (UA) (Negative) Urine Ketones (Negative) Microbiology - Last 24 Hours (Table) 07/21/18 14:42 Urine Culture - Preliminary Urine,Voided Thrombosis Risk Factor Assmnt - Choose All That Apply Any of the Below Risk Factors Present?: Yes Each Factor Represents 1 point: Sepsis (< 1month) Each Risk Factor Represents 2 Points: Age 61-74 years Thrombosis Risk Factor Assessment Total Risk Factor Score: 3 Thrombosis Risk Factor Assessment Level: Moderate Risk Assessment and Plan Plan: ASSESSMENT: Hypotension with pre-syncope Leukocytosis with elevated lactic acid, etiology unclear Chronic non-obstructing kidney stones Diabetes mellitus, type II History of peripheral neuropathy secondary to diabetes mellitus Hypertension Chronic back pain Chronic opioid use, patient sees Dr. Jackson outpatient for pain management Gastroesophageal reflux disease History of nicotine dependence, in remission Hospitalization for urinary tract infection, culture positive for Klebsiella, April 2018 PLAN: Cardiology on consult. Appreciate recommendations and input Monitor blood pressure Infectious disease on consult. Appreciate recommendations and input Antibiotics per ID Consult Dr. Jackson for pain management Home meds as appropriate Monitor labs GI prophylaxis: Protonix 40 mg PO BID DVT prophylaxis: Heparin 5000 units subcu every 12 hours Monitor vital signs and address as appropriate Discharge planning: Patient to return home when stable Further recommendations pending patient's course Nurse practitioner note has been reviewed by physician. Signing provider agrees with the documented findings, assessment, and plan of care.
[2018-07-22] MEDS: DICLOFENAC SODIUM GEL 100 GM TUBE TOPICAL SCH ×2 (15:35→21:35)
[2018-07-22 16:15] LABS: Glucose,Whole Blood 158 mg/dL (75-99)
[2018-07-22] MEDS: metroNIDAZOLE 500 MG TAB PO SCH ×2 (17:10→21:41)
[2018-07-22] MEDS: MORPHINE SULFATE 4 MG/ML SYRINGE IVP PRN ×2 (17:16→21:36)
[2018-07-22 21:00] LABS: Glucose,Whole Blood 128 mg/dL (75-99)
[2018-07-22] MEDS: LORATADINE 10 MG TAB PO SCH (21:35)
[2018-07-22] MEDS: TEMAZEPAM 30 MG CAP PO SCH (21:35)
[2018-07-22] MEDS: TAMSULOSIN 0.4 MG CAP.ER.24H PO SCH (21:35)
--- NOTE | 2018-07-22 23:45 | CONS ---
CONSULTATION DATE OF SERVICE: 07/22/2018 REASON FOR CONSULTATION: Leukocytosis, elevated lactic acid and antibiotic recommendations. HISTORY OF PRESENT ILLNESS: The patient is a 68-year-old male who was brought into the ER at [facility] with the chief complaints of lightheadedness and dizziness. Apparently his symptoms have been going on over the last few weeks. The main symptom is that he has been feeling weak and tired, with no energy, and also having low blood pressure issues. The patient apparently mentioned his blood pressure had been running like 50 systolic. The patient was evaluated in the outpatient setting and was told to increase his salt intake by his chef kitchen manager. However, on the day of presentation to hospital when the patient called his chef kitchen manager contact lens technician and told him about his low blood pressure and his symptoms, he was advised to go to the ER. On arrival in the ER, the patient was afebrile. His initial blood pressure was 108 systolic. Patient was not significantly tachycardic. However, the patient was noted to have a white count of 18,800. The patient's UA has been negative. He was also noted to have an elevated lactic acid of 3.5. Repeat was 2.4. The patient's chest x-ray was negative for any pneumonia. I was asked to see the patient for further recommendations regarding antibiotic therapy and possible source for this hypotension as well as the elevated lactic acid. The patient also has MULTIPLE ANTIBIOTIC ALLERGIES. The patient has been complaining of some vague left flank pain that has been off and on for the last few weeks. It is more of a dull aching pain. Intensity is about 4 to 5. Denies having significant nausea or vomiting or any radiation of the pain. REVIEW OF SYSTEMS: CONSTITUTIONAL: Positive for weakness but no fever. EYES: No complaint. ENT: No complaint. RESPIRATORY: No complaint. CARDIOVASCULAR: No complaint. GENITOURINARY: As per HPI. GASTROINTESTINAL: As per HPI. MUSCULOSKELETAL: No complaint. INTEGUMENTARY: No complaint. PSYCHOLOGICAL: No complaint. ENDOCRINE: No complaint. NEUROLOGICAL: No complaint. PAST MEDICAL HISTORY: 1. Hypertension. 2. Diabetes mellitus. 3. Angina. 4. History of diverticulosis. 5. Kidney stone. 6. Chronic low back pain. 7. Cancer to upper and lower eyelid. PAST SURGICAL HISTORY: 1. Cholecystectomy. 2. Heart catheterization. 3. Hernia repair. 4. Laparoscopic cholecystectomy. 5. Mireya fundoplication. 6. EGD. 7. Lithotripsy for ureteral stone. SOCIAL HISTORY: Remote history of smoking; quit in 2012. Denies drinking or drug use. FAMILY HISTORY: Father with history of cancer. Mother with history of hepatitis. ALLERGIES: 1. CEPHALEXIN. 2. GENTAMICIN. 3. NAPROXEN. 4. PENICILLIN. MEDICATIONS: The patient is currently on: 1. Tylenol. 2. Celexa. 3. Aspirin. 4. Lipitor. 5. Diclofenac. 6. Flonase. 7. Heparin. 8. NovoLog. 9. Zestril. 10.Claritin. 11.Morphine sulfate. 12.Narcan. 13.Zofran. 14.Protonix. 15.Flomax. 16.Restoril. PHYSICAL EXAMINATION: Blood pressure is 158/68 with a pulse of 75, temperature 98.1. He is 94% on room air. General description is an elderly male lying in bed in no distress. No tachypnea or accessory muscle for respiration use. HEENT examination shows pallor. No scleral icterus. Oral mucosa membrane is dry. No pharyngeal erythema or thrush. NECK: Trachea is central. No thyromegaly. LUNGS: Unlabored breathing with decreased breath sounds in the bases. No wheeze. HEART: S1, S2. Regular rate and rhythm. ABDOMEN: Soft. The patient did have significant tenderness in the left lower quadrant area. No guarding or rigidity. No organomegaly. EXTREMITIES: No edema of feet. SKIN EXAMINATION: No rashes. No mass palpable. Neurologically the patient is awake, alert, oriented x3. Mood and affect normal. LABS: Hemoglobin 13.6, white count of 18.8. BUN of 25, creatinine 0.73. Electrolytes have been normal. Lactic acid 3.5. Repeat is 2.4 and 1. UA has been negative. Chest x-ray report negative for any pneumonia. DIAGNOSTIC IMPRESSION AND PLAN: 1. Patient admitted to hospital with generalized weakness, no energy and hypotension in a patient noted to have a significantly elevated white count of 18,000 and also with elevated lactic acid. The patient was noted to have significant tenderness in the left lower quadrant area. Source could be more likely abdominal with a question of occult bleed versus related to his left kidney, as the patient does have a history of kidney stones. 2. Patient who does have multiple antibiotic allergies. That will limit the number of antibiotics that can be safely used. PLAN: 1. Will obtain a CT of abdomen and pelvis with oral and IV contrast to better define underlying intraabdominal pathology. 2. The patient was started on Azactam 2 grams q.12 and Flagyl 500 p.o. q.8 while waiting for the white count to be and condition to stabilize. 3. IV fluids. 4. We will follow his clinical condition and culture to further adjust medication if needed. Thank you for this consultation. Will follow this patient along with you. MMODL / IJN: [id number] /
[2018-07-23] MEDS: POTASSIUM CITRATE 10 MEQ TABLET.ER PO SCH ×3 (01:44→20:48)
[2018-07-23] MEDS: MORPHINE SULFATE 4 MG/ML SYRINGE IVP PRN ×5 (03:04→20:49)
[2018-07-23 05:55] LABS: Glucose,Whole Blood 125 mg/dL (75-99)
[2018-07-23] MEDS: INSULIN ASPART 100 UNIT/ML 1 ML 10 ML VIAL SQ SCH ×4 (06:06→20:57)
[2018-07-23] MEDS: PANTOPRAZOLE 40 MG TABLET PO SCH ×2 (06:57→17:08)
[2018-07-23 07:08] LABS: Anisocytosis Moderate; HCT 37.9 % (39.0-53.0); HGB 12.3 gm/dL (13.0-17.5); Hypochromasia Slight; MCH 31.7 pg (25.0-35.0); MCHC 32.6 g/dL (31.0-37.0); MCV 97.3 fL (80.0-100.0); Macrocytosis Slight; Mean Platelet Volume 8.5; Platelet Count 247 k/uL (150-450); RBC 3.89 m/uL (4.30-5.90); RDW 21.2 % (11.5-15.5); WBC 14.3 k/uL (3.8-10.6)
[2018-07-23 07:12] LABS: Anion Gap 6 mmol/L; Blood Urea Nitrogen 32 mg/dL (9-20); Carbon Dioxide 26 mmol/L (22-30); Chloride 106 mmol/L (98-107); Glucose 110 mg/dL (74-99); Potassium 4.6 mmol/L (3.5-5.1); Sodium 138 mmol/L (137-145)
[2018-07-23] MEDS: AZTREONAM 2 GM in SODIUM CHLORIDE 0.9% 100 ML IVPB SCH ×2 (08:13→20:47)
[2018-07-23] MEDS: metroNIDAZOLE 500 MG TAB PO SCH ×3 (08:13→20:48)
[2018-07-23] MEDS: LISINOPRIL 2.5 MG TAB PO SCH (08:13)
[2018-07-23] MEDS: ASPIRIN 81 MG PO SCH (08:13)
[2018-07-23] MEDS: ATORVASTATIN 40 MG TAB PO SCH (08:14)
[2018-07-23] MEDS: HEPARIN SODIUM,PORCINE 5,000 UNIT/ML 1 ML VIAL SQ SCH ×2 (08:14→20:47)
[2018-07-23] MEDS: CITALOPRAM HYDROBROMIDE 20 MG TAB PO SCH (08:14)
[2018-07-23] MEDS: FLUTICASONE 50MCG/SPRAY NASAL 16GM EA NOSTRIL SCH ×2 (08:14→20:47)
[2018-07-23 10:52] VITALS: RESP 16
--- NOTE | 2018-07-23 11:33 | P.PN ---
Subjective Progress Note Date: 07/23/18 07/22/2018 68-year-old male who presented to the emergency room on 07/21/2018 after speaking with his full charge bookkeeper via the phone for low blood pressure. The patient was evaluated by Dr. Pascal, his primary care physician approximately week ago and at that time he brought a log of all his blood pressures. The majority of his blood pressures were within normal limits. He did however have a couple hypotensive pressures documented. He was instructed to increase his salt intake and fluid intake. The patient states over the past week, he has had four episodes of hypotensive 50/30s. He reports he felt lightheaded and dizzy. He denied chest pain or pressure. Denied shortness of breath. He states he checked his significant others blood pressure on his machine and hers was in the 120/70s. He checked his again and it was still low. He called his full charge bookkeeper who instructed him to come to the emergency room. Chest x-ray was negative for acute process. Laboratory data upon admission reveals white count of 18.8. Hemoglobin 13.6. Platelet count 289. Sodium 137. Potassium 5.1. BUN 28. Creatinine 0.77. Glucose 220. Lactic acid 3.5. Repeat lactic acid 2.4 and 1.1. Magnesium 1.8. AST 26. ALT 33. Alkaline phosphatase 698, which has been chronically elevated for years. Troponin negative 1. Urinalysis revealed trace proteinuria, 4+ glucose, trace ketones. Echocardiogram was completed revealing ejection fraction between 55 and 60% and mild mitral regurgitation. The patient was seen and examined at the bedside with Dr. Pascal. The patient is awake and alert. He denies chest pain or pressure. Denies shortness of breath. Denies any further episodes of dizziness or lightheadedness. He reports left flank pain. The patient has a known history of nonobstructing kidney stones. Denies urinary urgency, frequency, or dysuria. He does report some malodorous urine at times. 07/23/2018 Patient seen and examined at the bedside. Patient underwent CT of abdomen and pelvis yesterday which showed mild left sided pelviectasis and some asymmetric mild haziness around the left upper ureter could represent mild inflammation such as secondary to an ascending UTI. Overall renal enhancement appears normal by CT arguing against pyelonephritis. A couple 2-3 mm nonobstructive calculi remain on the left. Bilateral renal cysts. Left-sided colonic diverticulosis without evidence for acute diverticulitis. Mild intrahepatic and extrahepatic biliary ductal dilation likely due to postcholecystectomy status. Similar changes of possible slipped Mireya wrap. Persistent mild circumferential wall thickening distal esophagus could represent esophagitis. The patient states he has seen Dr. Bean in the past. We will re-consult due to biliary dilation and chronically elevated alkaline phosphatase. Patient has had no further hypotensive episodes since being in the hospital. Cardiology is following. Urine culture is negative. Blood cultures are negative at 24 hour octavio. Patient denies chest pain or pressure. Denies shortness of breath. Denies lightheadedness or dizziness. Objective - Vital Signs Vital signs: Vital Signs Temp 98.0 F 07/23/18 08:00 Pulse 69 07/23/18 08:00 Resp 16 07/23/18 08:00 BP 139/75 07/23/18 08:00 Pulse Ox 93 L 07/23/18 08:00 Intake & Output 07/22/18 07/23/18 07/23/18 18:59 06:59 18:59 Intake Total 595 240 Balance 595 240 Weight 80.6 kg Intake: Intake, IV Titration 175 Amount Aztreonam 2 gm In Sodium 100 Chloride 0.9% 100 ml @ 100 mls/hr IVPB Q12HR [facility] Rx#:[id number] Sodium Chloride 0.9% 1, 75 000 ml @ 75 mls/hr IV . [id number] [facility] Rx#:[id number] Oral 420 240 Other: Voiding Method Toilet Toilet Toilet # Voids 1 - Exam GENERAL: This is a 68-year-old male in no apparent distress at the time of examination. HEENT: Head is atraumatic, normocephalic. Pupils are equal, round, and reactive to light. Sclerae anicteric. Conjunctivae are clear. Mucus membranes of the mouth are moist. Neck is supple. RESPIRATORY: Clear to auscultation. No wheezes, rales, or rhonchi. No use of accessory muscles. Patient maintaining oxygen saturation greater than 92%. No chest wall tenderness is noted on palpation or with deep breathing. CARDIOVASCULAR: Regular rate and rhythm. S1 and S2 noted. No JVD noted. No S3 or S4 noted. GASTROINTESTINAL: No distention noted. Abdomen soft and round. Normal active bowel sounds auscultated x 4 quadrants. No pain or tenderness noted upon palpation. INTEGUMENTARY: No cyanosis. No jaundice. No rashes noted. No cellulitis noted. EXTREMITIES: 2+ peripheral pulses. No evidence of peripheral edema. No calf tenderness noted. NEUROLOGIC: Cranial nerves II-XII intact. PSYCHIATRIC: Awake, alert, and oriented X 3. Appropriate affect. Intact judgement and insight. - Labs CBC & Chem 7: 07/23/18 06:21 07/23/18 06:21 Labs: Abnormal Lab Results - Last 24 Hours (Table) 07/21/18 07/22/18 07/22/18 Range/Units 15:08 11:25 16:12 WBC (3.8-10.6) k/uL RBC (4.30-5.90) m/uL Hgb (13.0-17.5) gm/dL Hct (39.0-53.0) % RDW (11.5-15.5) % BUN (9-20) mg/dL Glucose (74-99) mg/dL POC Glucose (mg/dL) 124 H 158 H (75-99) mg/dL Hemoglobin A1c 6.6 H (4.0-6.0) % 07/22/18 07/23/18 07/23/18 Range/Units 20:58 05:53 06:21 WBC (3.8-10.6) k/uL RBC (4.30-5.90) m/uL Hgb (13.0-17.5) gm/dL Hct (39.0-53.0) % RDW (11.5-15.5) % BUN 32 H (9-20) mg/dL Glucose 110 H (74-99) mg/dL POC Glucose (mg/dL) 128 H 125 H (75-99) mg/dL Hemoglobin A1c (4.0-6.0) % 07/23/18 Range/Units 06:21 WBC 14.3 H (3.8-10.6) k/uL RBC 3.89 L (4.30-5.90) m/uL Hgb 12.3 L (13.0-17.5) gm/dL Hct 37.9 L (39.0-53.0) % RDW 21.2 H (11.5-15.5) % BUN (9-20) mg/dL Glucose (74-99) mg/dL POC Glucose (mg/dL) (75-99) mg/dL Hemoglobin A1c (4.0-6.0) % Microbiology - Last 24 Hours (Table) 07/21/18 14:42 Urine Culture - Final Urine,Voided 07/21/18 15:27 Blood Culture - Preliminary Blood No Growth after 24 hours Assessment and Plan Plan: ASSESSMENT: Hypotension with pre-syncope Leukocytosis with elevated lactic acid, etiology unclear Chronic non-obstructing kidney stones Diabetes mellitus, type II History of peripheral neuropathy secondary to diabetes mellitus Hypertension Chronic back pain Chronic opioid use, patient sees Dr. Jackson outpatient for pain management Gastroesophageal reflux disease History of nicotine dependence, in remission Hospitalization for urinary tract infection, culture positive for Klebsiella, April 2018 Chronically elevated alkaline phosphatase with biliary duct dilation PLAN: Cardiology on consult. Appreciate recommendations and input Monitor blood pressure Infectious disease on consult. Appreciate recommendations and input Antibiotics per ID Dr. Jackson on consult for pain management Consult GI to reevaluate patient chronically elevated alkaline phosphatase and biliary duct dilation Home meds as appropriate Monitor labs GI prophylaxis: Protonix 40 mg PO BID DVT prophylaxis: Heparin 5000 units subcu every 12 hours Monitor vital signs and address as appropriate Discharge planning: Patient to return home when stable Further recommendations pending patient's course Nurse practitioner note has been reviewed by physician. Signing provider agrees with the documented findings, assessment, and plan of care.
[2018-07-23 11:51] LABS: Glucose,Whole Blood 121 mg/dL (75-99)
--- NOTE | 2018-07-23 12:23 | P.CONS ---
History of Present Illness - Reason for Consult Consult date: 07/23/18 biliary duct dilation Requesting physician: Vinny Pascal - Chief Complaint lightheadedness dizziness - History of Present Illness 68-year-old male history acalculous cholecystectomy 2014, chronic opioid usage, diabetes, Lance's esophagus, GERD, Mireya 2016, chronic elevation of alkaline phosphatase previously evaluated, renal calculi, admitted with lightheadedness dizziness lower abdominal pain with low blood pressures systolic 50s. Consult requested for dilated bile duct. CT abdomen and pelvis reported multiple hypodensities in the liver too small to characterize likely cysts. Mild intrahepatic bili duct dilatation 1.6 cm possibly secondary to postcholecystectomy status. Previously measuring 1.4 Center meters. Small focal area of hypodensity measuring 8 mm in the pancreatic head could represent ectasia versus sidebranch radicle. 1.1 m cystic area in the uncinate process of the pancreas; present and previous studies 2016. postsurgical changes at the GE junction with suggestion of a small hiatal hernia mild circumferential wall thickening along the distal esophagus possible slipped Mireya wrap. Possible esophagitis. TB 0.4. AST 15. ALT 28. AP 517. WBC count 18.8 presently 14.3. Hemoglobin 12.3. EGD July 2017 short segment of Lance's no evidence of stricture or esophagitis. Review of Systems Constitutional: Denies fever, chills, sweats, weight gain, or loss. HEENT: Negative for migraines, blurred vision or loss, earaches, drainage, tinnitus, oral mucosal lesions, dysphagia, or odynophagia. Cardiac: admitted with lightheadedness dizziness.Negative for chest pain, arrhythmias, or palpitation. Respiratory: Negative for shortness of breath, hemoptysis, cough, or sputum production. Gastrointestinal: See HPI for pertinent findings. Genitourinary: Negative for hematuria, urgency, frequency, polyuria, dysuria, or penile discharge. Musculoskeletal: Negative for muscle aches, swelling, arthritis, and arthralgias. Neurologic: Negative for stroke or TIA. Endocrine: Negative for thyroid problems. Skin: Negative for rash or itching. Psychiatric: Negative history for depression and anxietye Past Medical History Past Medical History: Cancer, Chest Pain / Angina, Diabetes Mellitus, GERD/ Reflux, Hypertension, Prostate Disorder Additional Past Medical History / Comment(s): migraines, diverticulosis, kidney stones, neurpathy hands & feet, low BACK PAIN-sees Dr. 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 RIGHT BREAST BIOPSY, TOTAL LT KNEE ; LT FOOT , LARA INGUINAL HERNIA, PERCUTANEOUS NEPHROLITHOTOMY. BILATERAL hand surgery. , back procedure for nerve endings and [facility]one [facility], colonoscopy.ESOPHGEAL DILATION, eye sx Past Anesthesia/Blood Transfusion Reactions: Motion Sickness Additional Past Anesthesia/Blood Transfusion Reaction / Comm: NEVER HAD ANY BLOOD TRANSFUSIONS Past Psychological History: Anxiety Additional Psychological History / Comment(s): . Smoking Status: Former smoker Past Alcohol Use History: None Reported Additional Past Alcohol Use History / Comment(s): STARTED SMOKING AT AGE 12, SMOKED 1 PPD, QUIT 2012 Past Drug Use History: None Reported - Past Family History Father Family Medical History: Cancer Mother Family Medical History: Liver Disease Additional Family Medical History / Comment(s): Mother had hepatitis. Medications and Allergies Home Medications Medication Instructions Recorded Confirmed Type Temazepam [Restoril] 30 mg PO HS 03/05/15 07/21/18 History Citalopram Hydrobromide [CeleXA] 40 mg PO DAILY 02/05/16 07/21/18 History Morphine Sulfate Ir [MSIR] 15 mg PO BID PRN 02/05/16 07/21/18 History Levocetirizine Dihydrochloride 5 mg PO HS 07/13/16 07/21/18 History [Xyzal] Tamsulosin [Flomax] 0.4 mg PO HS 07/13/16 07/21/18 History Hyoscyamine Sulfate [Levsin-Sl] 0.125 mg SL AC-TID PRN 08/04/16 07/21/18 History metFORMIN HCL [Glucophage Xr] 500 mg PO BID 11/27/16 07/21/18 History Aspirin EC [Ecotrin Low Dose] 81 mg PO QAM 12/22/16 07/21/18 History Omeprazole 40 mg PO BID 12/22/16 07/21/18 History Lisinopril [Zestril] 2.5 mg PO QAM 05/02/17 07/21/18 History ALPRAZolam [Xanax] 0.25 mg PO DAILY PRN 02/26/18 07/21/18 History Ibuprofen [Motrin] 800 mg PO HS PRN 02/26/18 07/21/18 History Fluticasone Nasal [place] [Flonase 2 spr EA NOSTRIL BID 03/26/18 07/21/18 History Nasal [place]] Insulin Glargine,Hum.rec.anlog See Protocol SQ DAILY PRN 03/26/18 07/21/18 History [Toujeo Solostar] Potassium Citrate [Urocit-K] 10 meq PO BID 04/23/18 07/21/18 History Diclofenac Sodium [Voltaren Gel] 1 applic TOPICAL TID 07/21/18 07/21/18 History Allergies Allergy/AdvReac Type Severity Reaction Status Date / Time cephalexin monohydrate Allergy Rash/Hives Verified 05/20/18 11:15 [From Keflex] clarithromycin [From Biaxin] Allergy Unknown Verified 05/20/18 11:15 gentamicin [Gentamicin] Allergy Unknown Verified 05/20/18 11:15 naproxen Allergy Unknown Verified 05/20/18 11:15 Penicillins Allergy Anaphylaxis Verified 05/20/18 11:15 Sulfa (Sulfonamide Allergy Rash/Hives Verified 05/20/18 11:15 Antibiotics) promethazine AdvReac Nausea & Verified 05/20/18 11:15 Vomiting Physical Exam Vitals: Vital Signs Temp Pulse Pulse Pulse Pulse Resp BP 07/23/18 05:13 98.3 F 69 15 07/23/18 00:59 97.9 F 65 15 07/22/18 21:48 65 65 58 L 07/22/18 21:44 98.1 F 56 L 15 07/22/18 16:13 98.2 F 64 65 57 L 18 07/22/18 12:32 98.5 F 58 L 18 112/66 BP BP BP Pulse Ox 07/23/18 05:13 133/83 96 07/23/18 00:59 127/70 96 07/22/18 21:48 115/64 115/68 126/60 07/22/18 21:44 149/72 94 L 07/22/18 16:13 108/66 113/72 107/66 96 07/22/18 12:32 92 L Intake and Output 07/22/18 07/23/18 07/23/18 22:59 06:59 14:59 Intake Total 340 240 Balance 340 240 Intake: Intake, IV Titration 100 Amount Aztreonam 2 gm In Sodium 100 Chloride 0.9% 100 ml @ 100 mls/hr IVPB Q12HR [facility] Rx#:[id number] Oral 240 240 Other: Voiding Method Toilet Toilet # Voids 1 Weight 80.6 kg General appearance: The patient is alert, oriented, in no acute distress. HET: Head is normocephalic and atraumatic. Pupils are equal and reactive. Oropharynx is clear without lesions. Neck: Supple without lymphadenopathy. Trachea midline. Heart: S1 S2. Regular rate and rhythm. Lungs: No crackles or wheezes are heard. Abdomen: Soft, nontender, nondistended with bowel sounds. No peritoneal signs. No palpable organomegaly or masses. Extremities: Normal skin color and turgor. No cyanosis, rash, ulceration, clubbing, or edema. Radial and pedal pulses are 2/4 bilaterally. Neurological: No focal deficits. Strength and sensation are grossly intact. Results CBC & Chem 7: 07/23/18 06:21 07/23/18 06:21 Labs: Abnormal Lab Results - Last 24 Hours (Table) 07/21/18 07/22/18 07/22/18 Range/Units 15:08 10:20 11:25 WBC (3.8-10.6) k/uL RBC (4.30-5.90) m/uL Hgb (13.0-17.5) gm/dL Hct (39.0-53.0) % RDW (11.5-15.5) % BUN (9-20) mg/dL Glucose (74-99) mg/dL POC Glucose (mg/dL) 124 H (75-99) mg/dL Hemoglobin A1c 6.6 H (4.0-6.0) % HDL Cholesterol 67 H (40-60) mg/dL 07/22/18 07/22/18 07/23/18 Range/Units 16:12 20:58 05:53 WBC (3.8-10.6) k/uL RBC (4.30-5.90) m/uL Hgb (13.0-17.5) gm/dL Hct (39.0-53.0) % RDW (11.5-15.5) % BUN (9-20) mg/dL Glucose (74-99) mg/dL POC Glucose (mg/dL) 158 H 128 H 125 H (75-99) mg/dL Hemoglobin A1c (4.0-6.0) % HDL Cholesterol (40-60) mg/dL 07/23/18 07/23/18 Range/Units 06:21 06:21 WBC 14.3 H (3.8-10.6) k/uL RBC 3.89 L (4.30-5.90) m/uL Hgb 12.3 L (13.0-17.5) gm/dL Hct 37.9 L (39.0-53.0) % RDW 21.2 H (11.5-15.5) % BUN 32 H (9-20) mg/dL Glucose 110 H (74-99) mg/dL POC Glucose (mg/dL) (75-99) mg/dL Hemoglobin A1c (4.0-6.0) % HDL Cholesterol (40-60) mg/dL Microbiology - Last 24 Hours (Table) 07/21/18 14:42 Urine Culture - Final Urine,Voided 07/21/18 15:27 Blood Culture - Preliminary Blood No Growth after [address] scan - abdomen: report reviewed (Dr. Mejía) Assessment and Plan (1) Pre-syncope Narrative/Plan: 68-year-old male admitted with hypotension and presyncope PMH chronic elevation of alkaline phosphatase, GERD, Lance's esophagus, acalculous cholecystectomy, CT imaging reported mildly intrahepatic ductal dilation relatively unchanged from previous exam was unremarkable LFTs, small focal area of hypodensity measuring 8 mm in the pancreatic head possible ectasia possible side branch radicle. Current Visit: Yes Status: Acute Code(s): R55 - SYNCOPE AND COLLAPSE SNOMED Code(s): 258335648 (2) Alkaline phosphatase elevation Current Visit: Yes Status: Chronic Code(s): R74.8 - ABNORMAL LEVELS OF OTHER SERUM ENZYMES SNOMED Code(s): 890462732 (3) Hypotension Current Visit: Yes Status: Acute Code(s): I95.9 - HYPOTENSION, UNSPECIFIED SNOMED Code(s): 41800388 (4) Chronic pain Current Visit: Yes Status: Acute Code(s): G89.29 - OTHER CHRONIC PAIN SNOMED Code(s): 00287648 Plan: 1. Consideration for outpatient EUS; evaluation of CT findings. Chronic alkaline phosphatase has been evaluated in the past no further workup at this time. Continue supportive measures. Thank you for this kind referral and the opportunity to participate in the care of your patient. This consultation was discussed with Dr. Mejía. The impression and plan of care have been directed as dictated.
[2018-07-23] MEDS: DICLOFENAC SODIUM GEL 100 GM TUBE TOPICAL SCH ×3 (13:02→20:49)
--- NOTE | 2018-07-23 16:27 | P.PN ---
Subjective Progress Note Date: 07/23/18 This is a 68-year-old gentleman admitted to the emergency room for an episode drop in blood pressure associated with dizziness. He follows with Dr. Young in the office. Yesterday he was seen in consultation by Dr. Ramírez. He presented to the hospital with symptoms of dizziness and drops in blood pressure. Patient has had a recent episode of nephrolithiasis regarding stent placement by Dr. Hernandez and apparently still has some stones in place, he continues to have intermittent abdominal discomfort and back discomfort in the area of his kidney stones. He also has obstructive sleep apnea and continues to be on CPAP. Echocardiogram with Doppler study was performed which revealed an ejection fraction of 55-60%. Blood pressure 138/76 with a heart rate in the 70s, 93%. Blood pressure 126/60 lying 115/68 sitting and 115/64 standing. Overall patient states he feels well today. Stable from a cardiac perspective. Objective - Vital Signs Vital signs: Vital Signs Temp 98.0 F 07/23/18 08:00 Pulse 69 07/23/18 08:00 Resp 16 07/23/18 08:00 BP 139/75 07/23/18 08:00 Pulse Ox 93 L 07/23/18 08:00 Intake & Output 07/22/18 07/23/18 07/23/18 18:59 06:59 18:59 Intake Total 595 462 Balance 595 462 Weight 80.6 kg Intake: Intake, IV Titration 175 Amount Aztreonam 2 gm In Sodium 100 Chloride 0.9% 100 ml @ 100 mls/hr IVPB Q12HR [facility] Rx#:[id number] Sodium Chloride 0.9% 1, 75 000 ml @ 75 mls/hr IV . [id number] [facility] Rx#:[id number] Oral 420 462 Other: Voiding Method Toilet Toilet Toilet # Voids 1 2 # Bowel Movements 0 - Exam PHYSICAL EXAMINATION: GENERAL: This is a 68-year-old gentleman in no acute distress at the time of my examination HEENT: Head is atraumatic, normocephalic. Pupils equal, round. Sclera anicteric. Conjunctiva are clear. Mucous membranes of the mouth are moist. Neck is supple. There is no elevated jugular venous pressure.No carotid bruit is heard. HEART EXAMINATION: Heart S1, S2 normal. No murmur or gallop heard. CHEST EXAMINATION: Lungs are clear to auscultation and precussion. No chest wall tenderness is noted on palpation or with deep breathing. ABDOMEN: Soft, nontender. Bowel sounds are heard. No organomegaly noted. EXTREMITIES: 2+ peripheral pulses with no evidence of peripheral edema and no calf tenderness noted. NEUROLOGIC patient is awake, alert and oriented X3. . - Labs CBC & Chem 7: 07/23/18 06:21 07/23/18 06:21 Labs: Abnormal Lab Results - Last 24 Hours (Table) 07/21/18 07/22/18 07/22/18 Range/Units 15:08 16:12 20:58 WBC (3.8-10.6) k/uL RBC (4.30-5.90) m/uL Hgb (13.0-17.5) gm/dL Hct (39.0-53.0) % RDW (11.5-15.5) % BUN (9-20) mg/dL Glucose (74-99) mg/dL POC Glucose (mg/dL) 158 H 128 H (75-99) mg/dL Hemoglobin A1c 6.6 H (4.0-6.0) % 07/23/18 07/23/18 07/23/18 Range/Units 05:53 06:21 06:21 WBC 14.3 H (3.8-10.6) k/uL RBC 3.89 L (4.30-5.90) m/uL Hgb 12.3 L (13.0-17.5) gm/dL Hct 37.9 L (39.0-53.0) % RDW 21.2 H (11.5-15.5) % BUN 32 H (9-20) mg/dL Glucose 110 H (74-99) mg/dL POC Glucose (mg/dL) 125 H (75-99) mg/dL Hemoglobin A1c (4.0-6.0) % 07/23/18 Range/Units 11:49 WBC (3.8-10.6) k/uL RBC (4.30-5.90) m/uL Hgb (13.0-17.5) gm/dL Hct (39.0-53.0) % RDW (11.5-15.5) % BUN (9-20) mg/dL Glucose (74-99) mg/dL POC Glucose (mg/dL) 121 H (75-99) mg/dL Hemoglobin A1c (4.0-6.0) % Microbiology - Last 24 Hours (Table) 07/21/18 14:42 Urine Culture - Final Urine,Voided 07/21/18 15:27 Blood Culture - Preliminary Blood No Growth after 24 hours Assessment and Plan Plan: Assessment and plan #1 episode of sudden drop in blood pressure of unclear etiology. No evidence to suggest an ischemic event. No associated arrhythmia. Orthostatics here have been negative. #2 diabetes #3 hypertension #4 leukocytosis with elevated lactic acid Plan Echocardiogram with Doppler study revealed normal left ventricular cardiology's perspective, we'll continue current medications. Follow along with you now on an as-needed basis only, please don't hesitate to call with any questions. DNP note has been reviewed, I agree with a documented findings and plan of care. Patient was seen and examined.
[2018-07-23] MEDS: SODIUM CHLORIDE 0.9% 1,000 ML IV SCH (17:11)
[2018-07-23 17:17] LABS: Glucose,Whole Blood 112 mg/dL (75-99)
[2018-07-23 19:52] LABS: Appearance,Urine Clear (Clear); Bilirubin,Urine Negative (Negative); Blood,Urine Negative (Negative); Color,Urine Light Yellow; Glucose,Urine (UA) Negative (Negative); Ketones,Urine Negative (Negative); Leukocyte Esterase,Urine Negative (Negative); Nitrite,Urine Negative (Negative); Protein,Urine Negative (Negative); Urobilinogen,Urine <2.0 mg/dL (<2.0)
[2018-07-23] MEDS ORDERED: DOCUSATE 100 MG CAP PO PRN (20:35)
[2018-07-23 20:40] LABS: Glucose,Whole Blood 101 mg/dL (75-99)
[2018-07-23] MEDS: LORATADINE 10 MG TAB PO SCH (20:47)
[2018-07-23] MEDS: TAMSULOSIN 0.4 MG CAP.ER.24H PO SCH (20:48)
[2018-07-23] MEDS: TEMAZEPAM 30 MG CAP PO SCH (20:48)
--- NOTE | 2018-07-24 00:10 | PN ---
PROGRESS NOTE DATE OF SERVICE: 07/23/2018. REASON FOR FOLLOWUP VISIT: Leukocytosis and possible abdominal infection. INTERVAL HISTORY: The patient is afebrile. He is complaining of pain into the left lower abdominal area. Has been complaining of urine which is slightly burning and it had some bubbles in it. Denies any hematuria. Denies any chest pain, shortness of breath or cough. No diarrhea. EXAMINATION: Blood pressure 123/57 with a pulse of 267, temperature 98.5. He is 93% on room air. GENERAL DESCRIPTION: An elderly male up in the bed in no distress. RESPIRATORY SYSTEM: Unlabored breathing. Clear to auscultation anteriorly. HEART: S1, S2. Regular rate and rhythm. LABS: Hemoglobin is 10.8, white count 14.3, BUN 32, creatinine 0.89. Culture so far is negative. Repeat urine has been negative as well. DIAGNOSTIC IMPRESSION AND PLAN: Patient admitted to the hospital with hypertension and elevated white count with concern for possible abdominal source in view of significant tenderness that was noticed on examination. CT of the abdomen and pelvis, however, did not show any evidence of any inflammation. His white count seemed to have come down to 14,000 with Azactam and Flagyl, which will be continued while waiting for the culture to finalize. CT will be reviewed with the radiologist. Continue supportive care. MMODL / IJN: [id number] /
[2018-07-24] MEDS: MORPHINE SULFATE 4 MG/ML SYRINGE IVP PRN ×3 (02:32→10:39)
[2018-07-24] MEDS ORDERED: VANCOMYCIN IV PER PHARMACY 1 EACH MISC MISCELLANE PRN (04:50)
[2018-07-24 05:55] LABS: Glucose,Whole Blood 113 mg/dL (75-99)
[2018-07-24] MEDS: INSULIN ASPART 100 UNIT/ML 1 ML 10 ML VIAL SQ SCH ×2 (05:57→13:31)
[2018-07-24] MEDS ORDERED: VANCOMYCIN 1,500 MG in SODIUM CHLORIDE 0.9% 250 ML IVPB SCH (06:00)
[2018-07-24] MEDS: PANTOPRAZOLE 40 MG TABLET PO SCH (06:22)
[2018-07-24] MEDS: FLUTICASONE 50MCG/SPRAY NASAL 16GM EA NOSTRIL SCH (09:00)
[2018-07-24] MEDS: CITALOPRAM HYDROBROMIDE 20 MG TAB PO SCH (09:00)
[2018-07-24] MEDS: POTASSIUM CITRATE 10 MEQ TABLET.ER PO SCH (09:00)
[2018-07-24] MEDS: HEPARIN SODIUM,PORCINE 5,000 UNIT/ML 1 ML VIAL SQ SCH (09:00)
[2018-07-24] MEDS: metroNIDAZOLE 500 MG TAB PO SCH (09:00)
[2018-07-24] MEDS: LISINOPRIL 2.5 MG TAB PO SCH (09:00)
[2018-07-24] MEDS: ASPIRIN 81 MG PO SCH (09:00)
[2018-07-24] MEDS: ATORVASTATIN 40 MG TAB PO SCH (09:00)
--- NOTE | 2018-07-24 09:46 | P.PN ---
Subjective Progress Note Date: 07/24/18 07/22/2018 68-year-old male who presented to the emergency room on 07/21/2018 after speaking with his media intern via the phone for low blood pressure. The patient was evaluated by Dr. Pascal, his primary care physician approximately week ago and at that time he brought a log of all his blood pressures. The majority of his blood pressures were within normal limits. He did however have a couple hypotensive pressures documented. He was instructed to increase his salt intake and fluid intake. The patient states over the past week, he has had four episodes of hypotensive 50/30s. He reports he felt lightheaded and dizzy. He denied chest pain or pressure. Denied shortness of breath. He states he checked his significant others blood pressure on his machine and hers was in the 120/70s. He checked his again and it was still low. He called his media intern who instructed him to come to the emergency room. Chest x-ray was negative for acute process. Laboratory data upon admission reveals white count of 18.8. Hemoglobin 13.6. Platelet count 289. Sodium 137. Potassium 5.1. BUN 28. Creatinine 0.77. Glucose 220. Lactic acid 3.5. Repeat lactic acid 2.4 and 1.1. Magnesium 1.8. AST 26. ALT 33. Alkaline phosphatase 698, which has been chronically elevated for years. Troponin negative 1. Urinalysis revealed trace proteinuria, 4+ glucose, trace ketones. Echocardiogram was completed revealing ejection fraction between 55 and 60% and mild mitral regurgitation. The patient was seen and examined at the bedside with Dr. Pascal. The patient is awake and alert. He denies chest pain or pressure. Denies shortness of breath. Denies any further episodes of dizziness or lightheadedness. He reports left flank pain. The patient has a known history of nonobstructing kidney stones. Denies urinary urgency, frequency, or dysuria. He does report some malodorous urine at times. 07/23/2018 Patient seen and examined at the bedside. Patient underwent CT of abdomen and pelvis yesterday which showed mild left sided pelviectasis and some asymmetric mild haziness around the left upper ureter could represent mild inflammation such as secondary to an ascending UTI. Overall renal enhancement appears normal by CT arguing against pyelonephritis. A couple 2-3 mm nonobstructive calculi remain on the left. Bilateral renal cysts. Left-sided colonic diverticulosis without evidence for acute diverticulitis. Mild intrahepatic and extrahepatic biliary ductal dilation likely due to postcholecystectomy status. Similar changes of possible slipped Mireya wrap. Persistent mild circumferential wall thickening distal esophagus could represent esophagitis. The patient states he has seen Dr. Bean in the past. We will re-consult due to biliary dilation and chronically elevated alkaline phosphatase. Patient has had no further hypotensive episodes since being in the hospital. Cardiology is following. Urine culture is negative. Blood cultures are negative at 24 hour octavio. Patient denies chest pain or pressure. Denies shortness of breath. Denies lightheadedness or dizziness. 07/24/2018 Patient seen and examined at the bedside. Patient states he is feeling well this morning. Denies chest pain or pressure. Denies shortness of breath. No further episodes of hypotension since being in the hospital. Cardiology has signed off. GI evaluated patient and no intervention inpatient was recommended. Patients blood cultures are positive for MRSA. Patient was started on Vancomycin. Sensitivity report is still pending. Objective - Vital Signs Vital signs: Vital Signs Temp 97.5 F L 07/24/18 03:08 Pulse 81 07/24/18 03:08 Resp 16 07/24/18 03:08 BP 137/79 07/24/18 03:08 Pulse Ox 93 L 07/24/18 03:08 Intake & Output 07/23/18 07/24/18 07/24/18 18:59 06:59 18:59 Intake Total 462 1300 240 Output Total 200 Balance 462 1100 240 Weight 80.8 kg Intake: IV 1300 Aztreonam 2 gm In Sodium 100 Chloride 0.9% 100 ml @ 100 mls/hr IVPB Q12HR NILS Rx#:[id number] Sodium Chloride 0.9% 1, 1200 000 ml @ 75 mls/hr IV . [id number] NILS Rx#:[id number] Oral 462 240 Output: Urine 200 Other: Voiding Method Toilet Urinal # Voids 2 1 # Bowel Movements 0 - Exam GENERAL: This is a 68-year-old male in no apparent distress at the time of examination. HEENT: Head is atraumatic, normocephalic. Pupils are equal, round, and reactive to light. Sclerae anicteric. Conjunctivae are clear. Mucus membranes of the mouth are moist. Neck is supple. RESPIRATORY: Clear to auscultation. No wheezes, rales, or rhonchi. No use of accessory muscles. Patient maintaining oxygen saturation greater than 92%. No chest wall tenderness is noted on palpation or with deep breathing. CARDIOVASCULAR: Regular rate and rhythm. S1 and S2 noted. No JVD noted. No S3 or S4 noted. GASTROINTESTINAL: No distention noted. Abdomen soft and round. Normal active bowel sounds auscultated x 4 quadrants. No pain or tenderness noted upon palpation. INTEGUMENTARY: No cyanosis. No jaundice. No rashes noted. No cellulitis noted. EXTREMITIES: 2+ peripheral pulses. No evidence of peripheral edema. No calf tenderness noted. NEUROLOGIC: Cranial nerves II-XII intact. PSYCHIATRIC: Awake, alert, and oriented X 3. Appropriate affect. Intact judgement and insight. - Labs CBC & Chem 7: 07/23/18 06:21 07/23/18 06:21 Labs: Abnormal Lab Results - Last 24 Hours (Table) 07/23/18 07/23/18 07/23/18 Range/Units 11:49 16:59 20:37 POC Glucose (mg/dL) 121 H 112 H 101 H (75-99) mg/dL 07/24/18 Range/Units 05:54 POC Glucose (mg/dL) 113 H (75-99) mg/dL Microbiology - Last 24 Hours (Table) 07/21/18 15:27 Blood Culture Gram Stain - Preliminary Blood Blood Culture - Preliminary Methicillin resist S. aureus 07/21/18 15:27 Blood Culture - Final Blood Assessment and Plan Plan: ASSESSMENT: Hypotension with pre-syncope, etiology unclear, resolved Gram positive bacteremia, blood cultures positive for MRSA Leukocytosis with elevated lactic acid, secondary to bacteremia Chronic non-obstructing kidney stones Diabetes mellitus, type II History of peripheral neuropathy secondary to diabetes mellitus Hypertension Chronic back pain Chronic opioid use, patient sees Dr. Jackson outpatient for pain management Gastroesophageal reflux disease History of nicotine dependence, in remission Hospitalization for urinary tract infection, culture positive for Klebsiella, April 2018 Chronically elevated alkaline phosphatase with biliary duct dilation PLAN: Cardiology on consult. Appreciate recommendations and input Monitor blood pressure Infectious disease on consult. Appreciate recommendations and input Antibiotics per ID. Await sensitivity report from blood cultures Dr. Jackson on consult for pain management GI on consult. Patient may follow up outpatient for possible endoscopic ultrasound Home meds as appropriate Monitor labs GI prophylaxis: Protonix 40 mg PO BID DVT prophylaxis: Heparin 5000 units subcu every 12 hours Monitor vital signs and address as appropriate Discharge planning: Patient to return home when stable Further recommendations pending patient's course Once sensitivity report is available and antibiotic regimen has been established , patient may be discharged home Nurse practitioner note has been reviewed by physician. Signing provider agrees with the documented findings, assessment, and plan of care.
--- NOTE | 2018-07-24 10:06 | P.PN ---
Subjective Progress Note Date: 07/24/18 Principal diagnosis: hypotension Reports right lower abdominal discomfort without N/V. Afebrile. Objective - Vital Signs Vital signs: Vital Signs Temp 98.3 F 07/24/18 08:00 Pulse 68 07/24/18 08:00 Resp 16 07/24/18 08:00 BP 123/72 07/24/18 08:00 Pulse Ox 93 L 07/24/18 08:00 Intake & Output 07/23/18 07/24/18 07/24/18 18:59 06:59 18:59 Intake Total 462 1300 240 Output Total 200 Balance 462 1100 240 Weight 80.8 kg Intake: IV 1300 Aztreonam 2 gm In Sodium 100 Chloride 0.9% 100 ml @ 100 mls/hr IVPB Q12HR NILS Rx#:[id number] Sodium Chloride 0.9% 1, 1200 000 ml @ 75 mls/hr IV . [id number] NILS Rx#:[id number] Oral 462 240 Output: Urine 200 Other: Voiding Method Toilet Urinal Urinal # Voids 2 1 # Bowel Movements 0 - Constitutional General appearance: Present: average body habitus - EENT Eyes: Present: normal appearance Ears: bilateral: normal - Respiratory Respiratory: bilateral: CTA - Cardiovascular Heart sounds: normal: S1, S2 - Gastrointestinal Gastrointestinal Comment(s): mild RLQ tenderness no R/G BS positive. General gastrointestinal: Present: soft - Neurologic Neurologic: Present: CNII-XII intact - Psychiatric Psychiatric: Present: A&O x's 3 - Labs CBC & Chem 7: 07/23/18 06:21 07/23/18 06:21 Labs: Abnormal Lab Results - Last 24 Hours (Table) 07/23/18 07/23/18 07/23/18 Range/Units 11:49 16:59 20:37 POC Glucose (mg/dL) 121 H 112 H 101 H (75-99) mg/dL 07/24/18 Range/Units 05:54 POC Glucose (mg/dL) 113 H (75-99) mg/dL Microbiology - Last 24 Hours (Table) 07/21/18 15:27 Blood Culture Gram Stain - Preliminary Blood Blood Culture - Preliminary Methicillin resist S. aureus 07/21/18 15:27 Blood Culture - Final Blood Assessment and Plan (1) Pre-syncope Narrative/Plan: 68-year-old male admitted with hypotension and presyncope PMH chronic elevation of alkaline phosphatase, GERD, Lance's esophagus, acalculous cholecystectomy, CT imaging reported mildly intrahepatic ductal dilation relatively unchanged from previous exam was unremarkable LFTs, small focal area of hypodensity measuring 8 mm in the pancreatic head possible ectasia possible side branch radicle. Current Visit: Yes Status: Acute Code(s): R55 - SYNCOPE AND COLLAPSE SNOMED Code(s): 251004678 (2) Alkaline phosphatase elevation Current Visit: Yes Status: Chronic Code(s): R74.8 - ABNORMAL LEVELS OF OTHER SERUM ENZYMES SNOMED Code(s): 757615993 (3) Hypotension Current Visit: Yes Status: Acute Code(s): I95.9 - HYPOTENSION, UNSPECIFIED SNOMED Code(s): 77565634 (4) Chronic pain Current Visit: Yes Status: Acute Code(s): G89.29 - OTHER CHRONIC PAIN SNOMED Code(s): 51701599 Plan: 1. Consideration for outpatient EUS; evaluation of CT findings; RTO 3 weeks to discuss. Chronic alkaline phosphatase has been evaluated in the past no further workup at this time. Continue supportive measures. Assessment and plan of care discussed with Dr. Mejía.
--- NOTE | 2018-07-24 11:07 | CDI ---
Last Revision, August 2017 Documentation Clarification Form Date: 07/24/18 From: Nasra Alvarado RN Admit Date: 07/21/2018 6:02:00 PM Patient Name: Gaetano Lorenz Visit Number: [id number] ATTENTION: The Clinical Documentation Specialists (CDI) and [employer] Coding Staff appreciate your assistance in clarifying documentation. Please respond to the clarification below the line at the bottom and electronically sign. The CDI & [employer] Coding staff will review the response and follow-up if needed. Please note: Queries are made part of the Legal Health Record. If you have any questions, please contact the author of this message via ITS. Vinny Rivera , DO, Can you please render your opinion on the following documentation? Pt. 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 Flores Antibiotics: Aztreonam IVPB, Flagyl PO, Vancomycin IVPB IV Bolus: .9 1000ml x 1 In your professional opinion, please clarify if these findings signify one of the following conditions, whether the condition is POA, and cause, if known: Condition Sepsis ruled in Sepsis ruled out SIRS, without underlying infectious process Severe Sepsis Other, please specify Unable to determine Present on Admission: Yes No Identify the (suspected) organism SIRS Criteria..2 or more of the following may indicate SIRS: Temperature < 96.8F (36C) or > 101.0F (38.3C) Heart Rate > 90 bpm Respiratory Rate > 20 breaths/min or PaCO2 < 32 mmHg White Blood Cell Count > 12,000 or < 4,000 cells/mm3 or > 10% bands Lactate >2.0 mmol/L (>4.0 is equivalent to septic shock) MTDD
[2018-07-24 12:09] LABS: Glucose,Whole Blood 103 mg/dL (75-99)
--- NOTE | 2018-07-24 13:02 | P.DS ---
Providers Date of admission: 07/21/18 18:02 Expected date of discharge: 07/24/18 Attending physician: Vinny Pascal Consults: 07/21/18 18:34 Consult Physician Routine Consulting Provider: Misti Flores Consult Reason/Comments: increased lactic acid. leukocytosis Do you want consulting provider notified?: Yes 07/22/18 07:43 Consult Physician Routine Consulting Provider: Joshua Marley Consult Reason/Comments: hypotension; near syncope Do you want consulting provider notified?: Yes 07/22/18 13:44 Consult Physician Routine Consulting Provider: Emmett Jackson Consult Reason/Comments: pain management-patient known to you Do you want consulting provider notified?: Yes 07/23/18 08:12 Consult Physician Routine Consulting Provider: Parker Mejía Consult Reason/Comments: biliary duct dilation, s/p uma, elevated alk phos Do you want consulting provider notified?: Yes Primary care physician: Vinny Pascal [facility] Course: 68-year-old male who presented to the emergency room on 07/21/2018 after speaking with his account manager relief via the phone for low blood pressure. The patient was evaluated by Dr. Pascal, his primary care physician approximately week ago and at that time he brought a log of all his blood pressures. The majority of his blood pressures were within normal limits. He did however have a couple hypotensive pressures documented. He was instructed to increase his salt intake and fluid intake. The patient states over the past week, he has had four episodes of hypotensive 50/30s. He reports he felt lightheaded and dizzy. He denied chest pain or pressure. Denied shortness of breath. He states he checked his significant others blood pressure on his machine and hers was in the 120/70s. He checked his again and it was still low. He called his account manager relief who instructed him to come to the emergency room. Chest x-ray was negative for acute process. Laboratory data upon admission reveals white count of 18.8. Hemoglobin 13.6. Platelet count 289. Sodium 137. Potassium 5.1. BUN 28. Creatinine 0.77. Glucose 220. Lactic acid 3.5. Repeat lactic acid 2.4 and 1.1. Magnesium 1.8. AST 26. ALT 33. Alkaline phosphatase 698, which has been chronically elevated for years. Troponin negative 1. Urinalysis revealed trace proteinuria, 4+ glucose, trace ketones. Echocardiogram was completed revealing ejection fraction between 55 and 60% and mild mitral regurgitation. The patient was seen and examined at the bedside with Dr. Pascal. The patient is awake and alert. He denies chest pain or pressure. Denies shortness of breath. Denies any further episodes of dizziness or lightheadedness. He reports left flank pain. The patient has a known history of nonobstructing kidney stones. Denies urinary urgency, frequency, or dysuria. He does report some malodorous urine at times. 07/23/2018 Patient seen and examined at the bedside. Patient underwent CT of abdomen and pelvis yesterday which showed mild left sided pelviectasis and some asymmetric mild haziness around the left upper ureter could represent mild inflammation such as secondary to an ascending UTI. Overall renal enhancement appears normal by CT arguing against pyelonephritis. A couple 2-3 mm nonobstructive calculi remain on the left. Bilateral renal cysts. Left-sided colonic diverticulosis without evidence for acute diverticulitis. Mild intrahepatic and extrahepatic biliary ductal dilation likely due to postcholecystectomy status. Similar changes of possible slipped Mireya wrap. Persistent mild circumferential wall thickening distal esophagus could represent esophagitis. The patient states he has seen Dr. Bean in the past. We will re-consult due to biliary dilation and chronically elevated alkaline phosphatase. Patient has had no further hypotensive episodes since being in the hospital. Cardiology is following. Urine culture is negative. Blood cultures are negative at 24 hour octavio. Patient denies chest pain or pressure. Denies shortness of breath. Denies lightheadedness or dizziness. 07/24/2018 Patient seen and examined at the bedside. Patient states he is feeling well this morning. Denies chest pain or pressure. Denies shortness of breath. No further episodes of hypotension since being in the hospital. Cardiology has signed off. GI evaluated patient and no intervention inpatient was recommended. Patients blood cultures are came back MRSA. Provider was awaiting sensitivity report. Lab notified nursing that results were in air in the computer in the blood cultures were not positive for MRSA. Blood cultures were positive for coagulase-negative staph, likely contamination. The patient was deemed stable for discharge home. He is to follow up on an outpatient basis with Dr. Pascal and consulting providers. DISCHARGE DIAGNOSIS: Hypotension with pre-syncope, etiology unclear, resolved Gram positive bacteremia, ruled out, blood cultures positive for coagulase- negative staph represent an contamination Leukocytosis with elevated lactic acid, etiology unclear SIRS, present on admission, without definite underlying infectious process, sepsis ruled out Chronic non-obstructing kidney stones Diabetes mellitus, type II History of peripheral neuropathy secondary to diabetes mellitus Hypertension Chronic back pain Chronic opioid use, patient sees Dr. Jackson outpatient for pain management Gastroesophageal reflux disease History of nicotine dependence, in remission Hospitalization for urinary tract infection, culture positive for Klebsiella, April 2018 Chronically elevated alkaline phosphatase with biliary duct dilation Nurse practitioner note has been reviewed by physician. Signing provider agrees with the documented findings, assessment, and plan of care. Patient Condition at Discharge: Stable Plan - Discharge Summary Discharge Rx Participant: No New Discharge Prescriptions: New Atorvastatin [Lipitor] 40 mg PO DAILY #30 tab Continue Temazepam [Restoril] 30 mg PO HS Morphine Sulfate Ir [MSIR] 15 mg PO BID PRN PRN Reason: Pain Citalopram Hydrobromide [CeleXA] 40 mg PO DAILY Levocetirizine Dihydrochloride [Xyzal] 5 mg PO HS Tamsulosin [Flomax] 0.4 mg PO HS Hyoscyamine Sulfate [Levsin-Sl] 0.125 mg SL AC-TID PRN PRN Reason: Chest Pain metFORMIN HCL [Glucophage Xr] 500 mg PO BID Omeprazole 40 mg PO BID Aspirin EC [Ecotrin Low Dose] 81 mg PO QAM Lisinopril [Zestril] 2.5 mg PO QAM ALPRAZolam [Xanax] 0.25 mg PO DAILY PRN PRN Reason: FLYING Ibuprofen [Motrin] 800 mg PO HS PRN PRN Reason: Pain Fluticasone Nasal [place] [Flonase Nasal [place]] 2 spr EA NOSTRIL BID Insulin Glargine,Hum.rec.anlog [Ysabel Morales] See Protocol SQ DAILY PRN PRN Reason: Blood Sugar - High Potassium Citrate [Urocit-K] 10 meq PO BID Diclofenac Sodium [Voltaren Gel] 1 applic TOPICAL TID Discharge Medication List Temazepam [Restoril] 30 mg PO HS 03/05/15 [History] Citalopram Hydrobromide [CeleXA] 40 mg PO DAILY 02/05/16 [History] Morphine Sulfate Ir [MSIR] 15 mg PO BID PRN 02/05/16 [History] Levocetirizine Dihydrochloride [Xyzal] 5 mg PO HS 07/13/16 [History] Tamsulosin [Flomax] 0.4 mg PO HS 07/13/16 [History] Hyoscyamine Sulfate [Levsin-Sl] 0.125 mg SL AC-TID PRN 08/04/16 [History] metFORMIN HCL [Glucophage Xr] 500 mg PO BID 11/27/16 [History] Aspirin EC [Ecotrin Low Dose] 81 mg PO QAM 12/22/16 [History] Omeprazole 40 mg PO BID 12/22/16 [History] Lisinopril [Zestril] 2.5 mg PO QAM 05/02/17 [History] ALPRAZolam [Xanax] 0.25 mg PO DAILY PRN 02/26/18 [History] Ibuprofen [Motrin] 800 mg PO HS PRN 02/26/18 [History] Fluticasone Nasal [place] [Flonase Nasal [place]] 2 spr EA NOSTRIL BID 03/26/18 [ History] Insulin Glargine,Hum.rec.anlog [Ysabel Morales] See Protocol SQ DAILY PRN 03/26 [History] Potassium Citrate [Urocit-K] 10 meq PO BID 04/23/18 [History] Diclofenac Sodium [Voltaren Gel] 1 applic TOPICAL TID 07/21/18 [History] Atorvastatin [Lipitor] 40 mg PO DAILY #30 tab 07/24/18 [Rx] Follow up Appointment(s)/Referral(s): [facility] [Provider Group] - 2 Weeks Vinny Pascal DO [Primary Care Provider] - 07/29/18 2:30 pm Colleen Bean MD [STAFF PHYSICIAN] - 08/08/18 4:15 pm Discharge Disposition: HOME SELF-CARE
[2018-07-24 13:34] VITALS: BP 154/70; TEMP 98.2
[2018-07-24 13:35] VITALS: PULSE 68
--- NOTE | 2018-07-24 14:05 | PN ---
PROGRESS NOTE DATE OF SERVICE: 07/24/2018 REASON FOR FOLLOWUP: Leukocytosis. INTERVAL HISTORY: The patient clinical course complicated by development of a positive blood culture. I was called this morning around 4 am with a positive blood culture with MRSA. A repeat blood culture has been ordered and the vancomycin was added. Patient this morning has pain afebrile. He is still complaining of some pain, mostly in the right lower abdominal area, pain more of a dull aching pain 3 to 4/10, and no radiation. He is feeling slightly nauseated with it, but no vomiting and denies having any diarrhea. No further urinary symptoms. REVIEW OF SYSTEMS: Positive points as mentioned in HPI. Rest of system has been negative. PAST MEDICAL AND SURGICAL HISTORY: Reviewed in the chest. Medication reviewed. PHYSICAL EXAMINATION: Blood pressure 123/72 with a pulse of 73, temperature 98.3, he is 93% on room air. General description is an elderly male, up in the room in no distress. RESPIRATORY SYSTEM: Unlabored breathing, clear to auscultation anteriorly. HEART: S1, S2. Regular rate and rhythm. ABDOMEN: Soft, some distension in the right lower quadrant area. No rigidity. EXTREMITIES: No edema of the feet. Skin examination with no rash or mass palpable. NEUROLOGICAL: Patient is awake, alert, oriented. Mood and affect normal. LABS: Blood culture with MRSA that was done on 07/21/2018. Repeat culture has been ordered, which is currently pending. DIAGNOSTIC IMPRESSION AND PLAN: Patient admitted to the hospital with hypertension with concern for possible sepsis or abdominal source in view of his abdominal pain. However, CT of the abdominal, pelvis was negative for any acute changes. Patient admitted with Azactam and the Flagyl, now with positive blood culture currently with methicillin-resistant Staphylococcus aureus, repeat culture has been ordered. There is no clear clinical focus of this positive blood culture. While patient is complaining of more pain in her right lower abdominal area, CT will be reviewed with the radiologist. Vancomycin has been added. Follow up blood culture has been ordered. Will wait for the repeat blood culture to finalize to make admission evidence of any persistent bacteremia on vancomycin watching his kidney function closely. Continue supportive care. MMODL / IJN: [id number] /
== END 2018-07-24 15:58 | disposition home or self-care (01) | DRG 315 ==
LOC: EC 14:40 → 3SCARD 18:02
PROVIDERS: ADMIT Family Medicine; ATTEND Family Medicine
DX: I95.9 Hypotension, unspecified (principal); E87.2 Acidosis; D72.829 Elevated white blood cell count, unspecified; E11.42 Type 2 diabetes mellitus with diabetic polyneuropathy; F41.9 Anxiety disorder, unspecified; G47.33 Obstructive sleep apnea (adult) (pediatric); I10 Essential (primary) hypertension; I34.0 Nonrheumatic mitral (valve) insufficiency; K21.9 Gastro-esophageal reflux disease without esophagitis; K22.70 Barrett's esophagus without dysplasia; K57.30 Diverticulosis of large intestine without perforation or abscess without bleeding; N20.0 Calculus of kidney; F17.211 Nicotine dependence, cigarettes, in remission; N28.1 Cyst of kidney, acquired; I20.9 Angina pectoris, unspecified; N42.9 Disorder of prostate, unspecified; M54.5 Low back pain; R74.8 Abnormal levels of other serum enzymes; G43.909 Migraine, unspecified, not intractable, without status migrainosus; R42 Dizziness and giddiness; R00.2 Palpitations; K83.8 Other specified diseases of biliary tract; R55 Syncope and collapse; Z79.84 Long term (current) use of oral hypoglycemic drugs; Z79.891 Long term (current) use of opiate analgesic; Z79.899 Other long term (current) drug therapy; Z80.9 Family history of malignant neoplasm, unspecified; Z85.3 Personal history of malignant neoplasm of breast; Z86.73 Personal history of transient ischemic attack (TIA), and cerebral infarction without residual deficits; Z90.49 Acquired absence of other specified parts of digestive tract; Z87.442 Personal history of urinary calculi; Z87.440 Personal history of urinary (tract) infections; Z88.1 Allergy status to other antibiotic agents; Z88.0 Allergy status to penicillin; Z88.2 Allergy status to sulfonamides; Z88.8 Allergy status to other drugs, medicaments and biological substances; Z96.652 Presence of left artificial knee joint; Z85.828 Personal history of other malignant neoplasm of skin; Z83.79 Family history of other diseases of the digestive system; Z98.890 Other specified postprocedural states
CPT/HCPCS: 36415; 71046; 74177; 80048; 80053; 80061; 81003; 82550; 82553; 83036; 83605; 83735; 84484; 85025; 85027; 85610; 85730; 87040; 87077; 87086; 87186; 93005; 93306; 96361; 96374; 96376; 99285

== ENCOUNTER → 2018-07-29 | Outpatient (CLI) | payer MEDICARE ==
[2018-07-29 11:29] LABS: Anisocytosis Moderate; Basophils # (A) 0.1 k/uL (0-0.2); Basophils % (A) 1 %; Eosinophils # (A) 0.2 k/uL (0-0.7); Eosinophils % (A) 2 %; HCT 39.6 % (39.0-53.0); Hypochromasia Slight; Lymphocytes # (A) 2.8 k/uL (1.0-4.8); Lymphocytes % (A) 27 %; MCH 31.5 pg (25.0-35.0); MCHC 32.9 g/dL (31.0-37.0); MCV 95.7 fL (80.0-100.0); Macrocytosis Slight; Monocytes # (A) 1.2 k/uL (0-1.0); Monocytes % (A) 11 %; Neutrophils # (A) 5.6 k/uL (1.3-7.7); Neutrophils % (A) 55 %; Platelet Count 229 k/uL (150-450); RBC 4.13 m/uL (4.30-5.90); RDW 21.2 % (11.5-15.5); WBC 10.2 k/uL (3.8-10.6)
[2018-07-29 11:42] LABS: Ovalocytes Present
[2018-07-29 11:43] LABS: Poikilocytosis (M) Present; Toxic Granulation Present
== END ==
LOC: LABWHC1 09:50
PROVIDERS: ATTEND Family Medicine
DX: R79.89 Other specified abnormal findings of blood chemistry (principal)
CPT/HCPCS: 36415; 85025

== ENCOUNTER → 2018-08-14 | Outpatient (CLI) | payer MEDICARE ==
[2018-08-14 13:24] LABS: Appearance,Urine Clear (Clear); Bilirubin,Urine Negative (Negative); Blood,Urine Negative (Negative); Color,Urine Yellow; Glucose,Urine (UA) Negative (Negative); Ketones,Urine Negative (Negative); Leukocyte Esterase,Urine Negative (Negative); Nitrite,Urine Negative (Negative); PH, Urine 5.5 (5.0-8.0); Protein,Urine Negative (Negative); Specific Gravity,Urine 1.019 (1.001-1.035); Urobilinogen,Urine <2.0 mg/dL (<2.0)
[2018-08-14 13:54] LABS: Anisocytosis Moderate; HCT 39.9 % (39.0-53.0); HGB 12.3 gm/dL (13.0-17.5); Hypochromasia Slight; MCH 30.6 pg (25.0-35.0); MCHC 30.7 g/dL (31.0-37.0); MCV 99.7 fL (80.0-100.0); Macrocytosis Moderate; Mean Platelet Volume 8.4; Platelet Count 344 k/uL (150-450); Poikilocytosis Slight; RBC 4.01 m/uL (4.30-5.90); RDW 21.2 % (11.5-15.5)
[2018-08-14 14:44] LABS: Band Neutrophils % 2 %; Basophils # (M) 0.08 k/uL (0-0.2); Myelocytes # (M) 0.16 k/uL (0); Myelocytes % 2 %; Neutrophils % (M) 45 %; Nucleated Red Blood Cells 3 /100 WBC (0-0); Total Cells Counted 200
[2018-08-14 14:45] LABS: Eosinophils # (M) 0.39 k/uL (0-0.7); Lymphocytes # (M) 2.73 k/uL (1.0-4.8); Monocytes # (M) 1.01 k/uL (0-1.0); Ovalocytes Present; WBC 7.8 k/uL (3.8-10.6)
[2018-08-14 18:53] LABS: Iron Saturation 25.86 (15.00-50.00)
[2018-08-14 19:05] LABS: Vitamin D 25 Hydroxy 30.1 ng/mL (30.0-100.0)
[2018-08-14 19:11] LABS: ALT 31 U/L (10-49); AST 28 U/L (14-35); Alkaline Phosphatase 427 U/L (41-126); Calcium 9.7 mg/dL (8.7-10.3); Carbon Dioxide 28.6 mmol/L (21.6-31.8); Chloride 108 mmol/L (96-109); Cholesterol 95 mg/dL (0-200); Globulin 1.5 g/dL (2.1-3.7); Glucose 78 mg/dL (70-110); Magnesium 1.7 mg/dL (1.5-2.4); Phosphorus 3.3 mg/dL (2.4-5.1); Potassium 4.9 mmol/L (3.5-5.5); Sodium 143 mmol/L (135-145); Total Bilirubin 0.9 mg/dL (0.3-1.2); Triglycerides <50.0 mg/dL (0.0-149.0); Uric Acid 4.9 mg/dL (3.7-8.7); VLDL Calculation 9.98 mg/dL (5.00-40.00)
[2018-08-14 19:26] LABS: Parathyroid Hormone Intact 65.5 pg/mL (14.0-72.0)
[2018-08-14 20:18] LABS: Hemoglobin A1C 6.5 % (4.0-6.0)
== END | disposition home or self-care (01) ==
LOC: LABWHC1 11:46
PROVIDERS: ATTEND Internal Medicine
DX: N20.0 Calculus of kidney (principal); N39.0 Urinary tract infection, site not specified; D64.9 Anemia, unspecified; N25.81 Secondary hyperparathyroidism of renal origin; E55.9 Vitamin D deficiency, unspecified; M10.9 Gout, unspecified; E11.9 Type 2 diabetes mellitus without complications; E05.90 Thyrotoxicosis, unspecified without thyrotoxic crisis or storm
CPT/HCPCS: 36415; 80053; 80061; 81003; 82043; 82306; 82570; 82728; 83036; 83540; 83550; 83735; 83970; 84100; 84439; 84443; 84480; 84550; 85025

== ENCOUNTER 2018-09-13 17:22 | Observation (INO) | payer MEDICARE ==
[2018-09-13] MEDS ORDERED: ASPIRIN 81 MG PO STA (18:05)
--- NOTE | 2018-09-13 18:08 | ED ---
General Adult HPI - General Chief complaint: Chest Pain Stated complaint: chest pain Source: patient Mode of arrival: ambulatory Limitations: no limitations - History of Present Illness Initial comments: Dictation was produced using [id number] dictation software. please excuse any grammatical, word or spelling errors. Chief Complaint: 68-year-old male past medical history of cancer, angina, hypertension, prostate disease presents with chest pain with diaphoresis. History of Present Illness: Male. Approximately 2 hours ago he was at work when he experienced intense substernal anterior chest pain. He states it is sharp. During that event he did also experience of diaphoresis. Patient denies any radiation of pain to the shoulders of the neck. Patient has any overt history of coronary artery disease. Patient was at work when they helped settle him down. They're concerned about his sugar being low. Patient then went home and drove himself to the hospital today. 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 He did have recent changes in his medications. The ROS documented in this emergency department record has been reviewed and confirmed by me. Those systems with pertinent positive or negative responses have been documented in the HPI. All other systems are other negative and/or noncontributory. - Related Data Home Medications Medication Instructions Recorded Confirmed Temazepam [Restoril] 30 mg PO HS 03/05/15 09/13/18 Citalopram Hydrobromide [CeleXA] 40 mg PO DAILY 02/05/16 09/13/18 Morphine Sulfate Ir [MSIR] 15 mg PO BID PRN 02/05/16 09/13/18 Levocetirizine Dihydrochloride 5 mg PO HS 07/13/16 09/13/18 [Xyzal] Tamsulosin [Flomax] 0.4 mg PO HS 07/13/16 09/13/18 Hyoscyamine Sulfate [Levsin-Sl] 0.125 mg SL AC-TID PRN 08/04/16 09/13/18 metFORMIN HCL [Glucophage Xr] 500 mg PO BID 11/27/16 09/13/18 Aspirin EC [Ecotrin Low Dose] 81 mg PO QAM 12/22/16 09/13/18 Omeprazole 40 mg PO BID 12/22/16 09/13/18 ALPRAZolam [Xanax] 0.25 mg PO DAILY PRN 02/26/18 09/13/18 Ibuprofen [Motrin] 800 mg PO HS PRN 02/26/18 09/13/18 Fluticasone Nasal [place] [Flonase 2 spr EA NOSTRIL BID 03/26/18 09/13/18 Nasal [place]] Insulin Glargine,Hum.rec.anlog See Protocol SQ DAILY PRN 03/26/18 09/13/18 [Toujeo Solostar] Diclofenac Sodium [Voltaren Gel] 1 applic TOPICAL TID 07/21/18 09/13/18 Allergies Allergy/AdvReac Type Severity Reaction Status Date / Time cephalexin monohydrate Allergy Rash/Hives Verified 09/13/18 18:54 [From Keflex] clarithromycin [From Biaxin] Allergy Unknown Verified 09/13/18 18:54 gentamicin [Gentamicin] Allergy Unknown Verified 09/13/18 18:54 naproxen Allergy Unknown Verified 09/13/18 18:54 Penicillins Allergy Anaphylaxis Verified 09/13/18 18:54 Sulfa (Sulfonamide Allergy Rash/Hives Verified 09/13/18 18:54 Antibiotics) promethazine AdvReac Nausea & Verified 09/13/18 18:54 Vomiting Review of Systems ROS Statement: Those systems with pertinent positive or pertinent negative responses have been documented in the HPI. ROS Other: All systems not noted in ROS Statement are negative. Past Medical History Past Medical History: Cancer, Chest Pain / Angina, Diabetes Mellitus, GERD/ Reflux, Hypertension, Prostate Disorder Additional Past Medical History / Comment(s): migraines, diverticulosis, kidney stones, neurpathy hands & feet, low BACK PAIN-sees Dr. 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 RIGHT BREAST BIOPSY, TOTAL LT KNEE ; LT FOOT , LARA INGUINAL HERNIA, PERCUTANEOUS NEPHROLITHOTOMY. BILATERAL hand surgery. , back procedure for nerve endings and [facility], colonoscopy.ESOPHGEAL DILATION, eye sx Past Anesthesia/Blood Transfusion Reactions: Motion Sickness Additional Past Anesthesia/Blood Transfusion Reaction / Comment(s): NEVER HAD ANY BLOOD TRANSFUSIONS Past Psychological History: Anxiety Smoking Status: Former smoker Past Alcohol Use History: None Reported Past Drug Use History: None Reported - Past Family History Father Family Medical History: Cancer Mother Family Medical History: Liver Disease Additional Family Medical History / Comment(s): Mother had hepatitis. General Exam - General Exam Comments Initial Comments: PHYSICAL EXAM: General Impression: Alert and oriented x3, not in acute distress HEENT: Normocephalic atraumatic, extra-ocular movements intact, pupils equal and reactive to light bilaterally, mucous membranes moist. Cardiovascular: Heart regular rate and rhythm, S1&S2 audible, no murmurs, rubs or gallops Chest: Lungs clear to auscultation bilaterally, no rhonchi, no wheeze, no rales Abdomen: Bowel sounds present, abdomen soft, non-tender, non-distended, no organomegaly Musculoskeletal: Pulses present and equal in all extremities, no peripheral edema Motor: Power 5/5 bilaterally, no focal deficits noted Neurological: CN II-XII grossly intact, no focal motor or sensory deficits noted Skin: Intact with no visualized rashes Psych: Normal affect and mood Limitations: no limitations Course Vital Signs 09/13/18 09/13/18 09/13/18 17:26 17:37 17:40 Temperature 97.8 F Pulse Rate 67 62 Respiratory 20 20 Rate Blood Pressure 182/76 145/87 O2 Sat by Pulse 98 91 L 97 Oximetry 09/13/18 09/13/18 09/13/18 17:50 18:00 18:10 Temperature Pulse Rate 66 61 62 Respiratory 20 20 20 Rate Blood Pressure 145/87 145/87 171/95 O2 Sat by Pulse 97 96 97 Oximetry 09/13/18 09/13/18 09/13/18 18:20 18:30 18:40 Temperature Pulse Rate 68 58 L 60 Respiratory 20 14 15 Rate Blood Pressure 171/95 171/95 186/102 O2 Sat by Pulse 96 96 Oximetry 09/13/18 09/13/18 09/13/18 18:50 19:00 19:10 Temperature Pulse Rate 56 L 63 56 L Respiratory 15 20 20 Rate Blood Pressure 186/102 186/102 172/103 O2 Sat by Pulse 96 97 96 Oximetry 09/13/18 09/13/18 09/13/18 19:20 19:30 19:40 Temperature Pulse Rate 58 L 61 Respiratory 14 11 L Rate Blood Pressure 172/103 172/103 176/85 O2 Sat by Pulse 96 Oximetry 09/13/18 09/13/18 19:50 20:00 Temperature Pulse Rate 62 55 L Respiratory 20 18 Rate Blood Pressure 176/85 176/85 O2 Sat by Pulse 97 96 Oximetry Medical Decision Making - Medical Decision Making ED course: 68 yo male presents with atypical chest pain with typical features. As upon arrival shows blood pressure 182/76, rest of vital signs within acceptable limits.Laboratory evaluation obtained. D-dimer 0.63. Metabolic panel shows no acute processes. Cardiac enzymes negative. Given elevated d- dimer CT angios the chest was obtained showing no findings to suggest pulmonary embolus. Results of her evidence of pulmonary emphysema. 60 shows no acute processes. She really is reevaluated with stable medical condition. Patient does not appear to be in acute distress. Patient was given some Nitropaste. Patient to be admitted to observation unit for serial troponins. Patient given aspirin. EKG Interpretation: A 12 lead EKG was obtained. It was interpreted by myself and attending physician. There is a P wave before every QRS complex. Rate is 60. Rhythm is normal sinus rhythm, DC interval 174, QS 96, QTC 472. QT is not prolonged. No ST segment depression or elevation. . Overall, this EKG is unremarkable - Lab Data Result diagrams: 09/13/18 17:50 09/13/18 17:50 Lab Results 09/13/18 09/13/18 09/13/18 Range/Units 17:50 17:50 17:50 WBC 9.9 (3.8-10.6) k/uL RBC 3.89 L (4.30-5.90) m/uL Hgb 11.6 L (13.0-17.5) gm/dL Hct 37.6 L (39.0-53.0) % MCV 96.6 (80.0-100.0) fL MCH 29.9 (25.0-35.0) pg MCHC 30.9 L (31.0-37.0) g/dL RDW 21.2 H (11.5-15.5) % Plt Count 305 (150-450) k/uL Neutrophils % 68 % Lymphocytes % 17 % Monocytes % 8 % Eosinophils % 2 % Basophils % 1 % Neutrophils # 6.8 (1.3-7.7) k/uL Lymphocytes # 1.7 (1.0-4.8) k/uL Monocytes # 0.8 (0-1.0) k/uL Eosinophils # 0.2 (0-0.7) k/uL Basophils # 0.1 (0-0.2) k/uL Hypochromasia Slight Poikilocytosis Slight Anisocytosis Moderate Macrocytosis Slight PT (9.0-12.0) sec INR (<1.2) APTT (22.0-30.0) sec D-Dimer (<0.60) mg/L FEU Sodium 141 (137-145) mmol/L Potassium 4.0 (3.5-5.1) mmol/L Chloride 110 H (98-107) mmol/L Carbon Dioxide 20 L (22-30) mmol/L Anion Gap 11 mmol/L BUN 23 H (9-20) mg/dL Creatinine 0.82 (0.66-1.25) mg/dL Est GFR (CKD-EPI)AfAm >90 (>60 ml/min/1.73 sqM) Est GFR (CKD-EPI)NonAf >90 (>60 ml/min/1.73 sqM) Glucose 142 H (74-99) mg/dL POC Glucose (mg/dL) (75-99) mg/dL POC Glu Overnight Stocker ID Calcium 9.2 (8.4-10.2) mg/dL Magnesium 1.7 (1.6-2.3) mg/dL Total Bilirubin 0.8 (0.2-1.3) mg/dL AST 30 (17-59) U/L ALT 35 (21-72) U/L Alkaline Phosphatase 303 H (38-126) U/L Total Creatine Kinase 260 H (55-170) U/L CK-MB (CK-2) 5.1 H (0.0-2.4) ng/mL CK-MB (CK-2) Rel Index 2.0 Troponin I <0.012 (0.000-0.034) ng/mL Total Protein 6.3 (6.3-8.2) g/dL Albumin 3.9 (3.5-5.0) g/dL 12/21/18 12/21/18 Range/Units 17:50 18:09 WBC (3.8-10.6) k/uL RBC (4.30-5.90) m/uL Hgb (13.0-17.5) gm/dL Hct (39.0-53.0) % MCV (80.0-100.0) fL MCH (25.0-35.0) pg MCHC (31.0-37.0) g/dL RDW (11.5-15.5) % Plt Count (150-450) k/uL Neutrophils % % Lymphocytes % % Monocytes % % Eosinophils % % Basophils % % Neutrophils # (1.3-7.7) k/uL Lymphocytes # (1.0-4.8) k/uL Monocytes # (0-1.0) k/uL Eosinophils # (0-0.7) k/uL Basophils # (0-0.2) k/uL Hypochromasia Poikilocytosis Anisocytosis Macrocytosis PT 11.6 (9.0-12.0) sec INR 1.1 (<1.2) APTT 24.2 (22.0-30.0) sec D-Dimer 0.63 H (<0.60) mg/L FEU Sodium (137-145) mmol/L Potassium (3.5-5.1) mmol/L Chloride (98-107) mmol/L Carbon Dioxide (22-30) mmol/L Anion Gap mmol/L BUN (9-20) mg/dL Creatinine (0.66-1.25) mg/dL Est GFR (CKD-EPI)AfAm (>60 ml/min/1.73 sqM) Est GFR (CKD-EPI)NonAf (>60 ml/min/1.73 sqM) Glucose (74-99) mg/dL POC Glucose (mg/dL) 137 H (75-99) mg/dL POC Glu Overnight Stocker ID Amor Barber Calcium (8.4-10.2) mg/dL Magnesium (1.6-2.3) mg/dL Total Bilirubin (0.2-1.3) mg/dL AST (17-59) U/L ALT (21-72) U/L Alkaline Phosphatase (38-126) U/L Total Creatine Kinase (55-170) U/L CK-MB (CK-2) (0.0-2.4) ng/mL CK-MB (CK-2) Rel Index Troponin I (0.000-0.034) ng/mL Total Protein (6.3-8.2) g/dL Albumin (3.5-5.0) g/dL Disposition Clinical Impression: Chest pain Disposition: ADMITTED IP TO THIS HOSP Condition: Fair Referrals: Siria Hastings MD [Primary Care Provider] - 1-2 days Decision Time: 20:26
[2018-09-13 18:20] LABS: Anisocytosis Moderate; Basophils # (A) 0.1 k/uL (0-0.2); Basophils % (A) 1 %; Eosinophils # (A) 0.2 k/uL (0-0.7); Eosinophils % (A) 2 %; HCT 37.6 % (39.0-53.0); HGB 11.6 gm/dL (13.0-17.5); Hypochromasia Slight; Lymphocytes # (A) 1.7 k/uL (1.0-4.8); Lymphocytes % (A) 17 %; MCH 29.9 pg (25.0-35.0); MCHC 30.9 g/dL (31.0-37.0); MCV 96.6 fL (80.0-100.0); Macrocytosis Slight; Monocytes # (A) 0.8 k/uL (0-1.0); Monocytes % (A) 8 %; Neutrophils # (A) 6.8 k/uL (1.3-7.7); Neutrophils % (A) 68 %; Platelet Count 305 k/uL (150-450); Poikilocytosis Slight; RBC 3.89 m/uL (4.30-5.90); RDW 21.2 % (11.5-15.5); WBC 9.9 k/uL (3.8-10.6)
[2018-09-13 18:29] LABS: Creatine Kinase 260 U/L (55-170)
[2018-09-13 18:32] LABS: ALT 35 U/L (21-72); AST 30 U/L (17-59); Albumin 3.9 g/dL (3.5-5.0); Alkaline Phosphatase 303 U/L (38-126); Anion Gap 11 mmol/L; Blood Urea Nitrogen 23 mg/dL (9-20); Calcium 9.2 mg/dL (8.4-10.2); Carbon Dioxide 20 mmol/L (22-30); Chloride 110 mmol/L (98-107); Glucose 142 mg/dL (74-99); Magnesium 1.7 mg/dL (1.6-2.3); Sodium 141 mmol/L (137-145); Total Bilirubin 0.8 mg/dL (0.2-1.3); Total Protein 6.3 g/dL (6.3-8.2)
--- NOTE | 2018-09-13 18:37 | XR ---
EXAMINATION TYPE: XR chest 2V DATE OF EXAM: 09/13/2018 COMPARISON: 07/21/2018 HISTORY: Chest wall pain TECHNIQUE: Frontal and lateral views of the chest are obtained. FINDINGS: Heart is enlarged. There is coarsening of the lung markings. There are chest leads. Costop hrenic angles are clear. Bony thorax is intact. IMPRESSION: Mild pulmonary fibrosis. Inspiration is decreased compared to old exam. No heart failure .
[2018-09-13 18:40] LABS: INR 1.1 (<1.2); Partial Thromboplastin Time 24.2 sec (22.0-30.0); Prothrombin Time 11.6 sec (9.0-12.0)
[2018-09-13 18:41] LABS: Creatine Kinase MB 5.1 ng/mL (0.0-2.4); Troponin I <0.012 ng/mL (0.000-0.034)
[2018-09-13 18:47] LABS: D-Dimer 0.63 mg/L FEU (<0.60)
[2018-09-13 18:56] LABS: Glucose,Whole Blood 137 mg/dL (75-99)
--- NOTE | 2018-09-13 20:04 | CT ---
EXAMINATION TYPE: CT angio chest DATE OF EXAM: 09/13/2018 7:48 PM COMPARISON: 06/03/2017 HISTORY: Chest pain. CT DLP: 298 mGycm Automated exposure control for dose reduction was used. CONTRAST: CTA scan of the thorax is performed with IV Contrast, patient injected with 74ml mL of Isovue 370, pu lmonary embolism protocol. There are 3-D post processed images.. FINDINGS: There is some emphysematous changes in the upper lobes. There is no mediastinal adenopathy. Thoracic aorta is intact without evidence of aneurysm or dissection. The lungs are clear of consolidation. The re is no evidence of a pulmonary mass. There is patchy linear scarring and atelectasis at the lung bases and much more on the right side. Th ere is no pleural effusion. Heart is enlarged. There is no pericardial effusion. There are surgical c lips at the gastroesophageal junction. The bony thorax is intact. There is normal contrast opacification of the pulmonary arteries. I see no filling defects. IMPRESSION: NO EVIDENCE OF PULMONARY EMBOLISM. PULMONARY EMPHYSEMA. THERE IS SCARRING AND ATELECTASIS AT THE LUNG BASES UNCHANGED.
[2018-09-13] MEDS ORDERED: NITROGLYCERIN OINT 1 INCH/GM PACKET TOPICAL STA (20:21)
[2018-09-13] MEDS ORDERED: NITROGLYCERIN SL TABS 0.4 MG TAB SUBLINGUAL PRN (20:24)
[2018-09-13 21:25] LABS: Glucose,Whole Blood 98 mg/dL (75-99)
[2018-09-13 21:51] VITALS: BMI 27.3
[2018-09-13] MEDS ORDERED: ALPRAZolam 0.25 MG TAB PO PRN (22:20)
[2018-09-13] MEDS ORDERED: HYOSCYAMINE SULFATE 0.125 MG TAB PO PRN (22:20)
[2018-09-13] MEDS ORDERED: MORPHINE SULFATE IR 15 MG TABLET PO PRN (22:30)
[2018-09-13] MEDS: TEMAZEPAM 30 MG CAP PO PRN (22:59)
[2018-09-13] MEDS: LORATADINE 10 MG TAB PO SCH (22:59)
[2018-09-13] MEDS: metFORMIN 500 MG TAB PO SCH (22:59)
[2018-09-13] MEDS: PANTOPRAZOLE 40 MG TABLET PO SCH (22:59)
[2018-09-13] MEDS: IBUPROFEN 800 MG TAB PO SCH (23:00)
[2018-09-13] MEDS: TAMSULOSIN 0.4 MG CAP.ER.24H PO SCH (23:00)
[2018-09-13] MEDS: HYDROmorphone 0.5 MG/0.5 ML SYRINGE IVP PRN (23:00)
[2018-09-13] MEDS: FLUTICASONE 50MCG/SPRAY NASAL 16GM EA NOSTRIL SCH (23:49)
[2018-09-14] LABS: Creatine Kinase 213 U/L (55-170)
[2018-09-14 00:13] LABS: Creatine Kinase MB 4.5 ng/mL (0.0-2.4); Troponin I <0.012 ng/mL (0.000-0.034)
[2018-09-14] MEDS: HYDROmorphone 0.5 MG/0.5 ML SYRINGE IVP PRN ×8 (01:42→22:43)
[2018-09-14] MEDS ORDERED: INSULIN GLARGINE HUM REC ANLOG SQ PRN (06:22)
[2018-09-14 06:25] LABS: Glucose,Whole Blood 138 mg/dL (75-99)
[2018-09-14 07:06] LABS: Cholesterol 119 mg/dL (<200); HDL Cholesterol 51 mg/dL (40-60); LDL Cholesterol,Calculated 55 mg/dL (0-99); Triglycerides 65 mg/dL (<150)
[2018-09-14 07:09] LABS: Creatine Kinase 149 U/L (55-170)
[2018-09-14 07:18] LABS: Creatine Kinase MB 3.7 ng/mL (0.0-2.4)
[2018-09-14 07:23] LABS: Troponin I <0.012 ng/mL (0.000-0.034)
--- NOTE | 2018-09-14 08:51 | P.CRDCN ---
History of Present Illness Consult date: 09/14/18 Requesting physician: Haley Villa Consult reason: chest pain Chief complaint: Diaphoresis, chest pain History of present illness: This is a 68-year-old gentleman who follows regularly with Dr. Young in the office. 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 He states that he was at work, became suddenly severely diaphoretic, states also that he developed chest discomfort at this time. The staff thought his sugars may have been low and they gave him some candies. Symptoms continued to worsen and they said the patient down in the chair, he states that the pain was sharp stabbing pains, then just felt like a persistent ache in his chest. He also states that with minimal exertion recently he has noticed himself to be short of breath and has developed significant bilateral peripheral edema which this morning has also resolved. 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 Patient also states that he has had a cardiac catheterization within the past couple of years at [place] which was reported to be normal. The patient as stated does follow with Dr. Young in the office, he apparently has had a stress test within this past year which has been reported to be normal. Chest x -ray on arrival here revealed mild pulmonary fibrosis. CTA of the chest does not reveal evidence of pulmonary embolism. EKG shows normal sinus rhythm with no acute changes. Blood pressure on arrival 182/76, heart rate in the 60s, 90% on room air. Let pressure this morning 114/60 with a heart rate in the 70s, 96 % on 2 L of oxygen. White blood cell count is normal, hemoglobin 11 6, platelet count 305. D-dimer 0.63, sodium 141, potassium 4.0, BUN 23, creatinine 0.8. Troponins negative 3, alk phos 303, mag 1.7. Cholesterol 119 , triglycerides 65, LDL 55, HDL 51. At the time of my examination this morning , patient is currently chest pain-free. No evidence of any peripheral edema. Past Medical History Past Medical History: Cancer, Chest Pain / Angina, Diabetes Mellitus, GERD/ Reflux, Hypertension, Prostate Disorder Additional Past Medical History / Comment(s): migraines, diverticulosis, kidney stones, neurpathy hands & feet, low BACK PAIN-sees Dr. 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 RIGHT BREAST BIOPSY, TOTAL LT KNEE ; LT FOOT , LARA INGUINAL HERNIA, PERCUTANEOUS NEPHROLITHOTOMY. BILATERAL hand surgery. , back procedure for nerve endings and [facility], colonoscopy.ESOPHGEAL DILATION, eye sx Past Anesthesia/Blood Transfusion Reactions: Motion Sickness Additional Past Anesthesia/Blood Transfusion Reaction / Comment(s): NEVER HAD ANY BLOOD TRANSFUSIONS Smoking Status: Former smoker - Past Family History Father Family Medical History: Cancer Mother Family Medical History: Liver Disease Additional Family Medical History / Comment(s): Mother had hepatitis. Medications and Allergies Home Medications Medication Instructions Recorded Confirmed Type Temazepam [Restoril] 30 mg PO HS 03/05/15 09/13/18 History Citalopram Hydrobromide [CeleXA] 40 mg PO DAILY 02/05/16 09/13/18 History Morphine Sulfate Ir [MSIR] 15 mg PO BID 02/05/16 09/13/18 History Levocetirizine Dihydrochloride 5 mg PO HS 07/13/16 09/13/18 History [Xyzal] Tamsulosin [Flomax] 0.4 mg PO HS 07/13/16 09/13/18 History Hyoscyamine Sulfate [Levsin-Sl] 0.125 mg SL AC-TID PRN 08/04/16 09/13/18 History metFORMIN HCL [Glucophage Xr] 500 mg PO BID 11/27/16 09/13/18 History Aspirin EC [Ecotrin Low Dose] 81 mg PO QAM 12/22/16 09/13/18 History Omeprazole 40 mg PO BID 12/22/16 09/13/18 History ALPRAZolam [Xanax] 0.25 mg PO DAILY PRN 02/26/18 09/13/18 History Ibuprofen [Motrin] 800 mg PO HS 02/26/18 09/13/18 History Fluticasone Nasal [place] [Flonase 2 spr EA NOSTRIL BID 03/26/18 09/13/18 History Nasal [place]] Insulin Glargine,Hum.rec.anlog See Protocol SQ DAILY PRN 03/26/18 09/13/18 History [Toujeo Solostar] Diclofenac Sodium [Voltaren Gel] 1 applic TOPICAL TID 07/21/18 09/13/18 History Allergies Allergy/AdvReac Type Severity Reaction Status Date / Time cephalexin monohydrate Allergy Rash/Hives Verified 09/13/18 21:35 [From Keflex] clarithromycin [From Biaxin] Allergy Unknown Verified 09/13/18 21:35 gentamicin [Gentamicin] Allergy Unknown Verified 09/13/18 21:35 naproxen Allergy Unknown Verified 09/13/18 21:35 Penicillins Allergy Anaphylaxis Verified 09/13/18 21:35 Sulfa (Sulfonamide Allergy Rash/Hives Verified 09/13/18 21:35 Antibiotics) promethazine AdvReac Nausea & Verified 09/13/18 21:35 Vomiting Physical Exam Vitals: Vital Signs Temp Pulse Pulse Resp BP BP Pulse Ox 09/14/18 08:00 98 F 61 16 121/64 93 L 09/14/18 03:25 97.9 F 72 15 113/63 96 09/14/18 03:21 16 09/14/18 00:00 16 09/13/18 21:28 97.9 F 97 15 198/83 96 09/13/18 20:00 55 L 18 176/85 96 09/13/18 19:50 62 20 176/85 97 09/13/18 19:40 176/85 09/13/18 19:30 61 11 L 172/103 09/13/18 19:20 58 L 14 172/103 96 09/13/18 19:10 56 L 20 172/103 96 09/13/18 19:00 63 20 186/102 97 09/13/18 18:50 56 L 15 186/102 96 09/13/18 18:40 60 15 186/102 96 09/13/18 18:30 58 L 14 171/95 96 09/13/18 18:20 68 20 171/95 09/13/18 18:10 62 20 171/95 97 09/13/18 18:00 61 20 145/87 96 09/13/18 17:50 66 20 145/87 97 09/13/18 17:40 62 20 145/87 97 18 17:37 91 L 09/13/18 17:26 97.8 F 67 20 182/76 98 Intake and Output 09/13/18 09/14/18 09/14/18 22:59 06:59 14:59 Other: # Voids 1 1 Weight 79.3 kg PHYSICAL EXAMINATION: GENERAL: 68-year-old gentleman in no acute distress at the time of my examination HEENT: Head is atraumatic, normocephalic. Pupils equal, round. Sclera anicteric. Conjunctiva are clear. Mucous membranes of the mouth are moist. Neck is supple. There is no elevated jugular venous pressure. No carotid bruit is heard. HEART EXAMINATION: Heart S1, S2 normal. No murmur or gallop heard. CHEST EXAMINATION: Lungs are clear to auscultation and precussion. No chest wall tenderness is noted on palpation or with deep breathing. ABDOMEN: Soft, nontender. Bowel sounds are heard. No organomegaly noted. EXTREMITIES: 2+ peripheral pulses with no evidence of peripheral edema and no calf tenderness noted. NEUROLOGIC patient is awake, alert and oriented 3 . . Results 09/13/18 17:50 09/13/18 17:50 Cardiac Enzymes 09/13/18 09/13/18 09/13/18 Range/Units 17:50 17:50 23:26 AST 30 (17-59) U/L CK-MB (CK-2) 5.1 H 4.5 H (0.0-2.4) ng/mL Troponin I <0.012 <0.012 (0.000-0.034) ng/mL 09/14/18 Range/Units 05:43 AST (17-59) U/L CK-MB (CK-2) 3.7 H (0.0-2.4) ng/mL Troponin I <0.012 (0.000-0.034) ng/mL Coagulation 09/13/18 Range/Units 17:50 PT 11.6 (9.0-12.0) sec APTT 24.2 (22.0-30.0) sec Lipids 09/14/18 Range/Units 05:43 Triglycerides 65 (<150) mg/dL Cholesterol 119 (<200) mg/dL HDL Cholesterol 51 (40-60) mg/dL CBC 09/13/18 Range/Units 17:50 WBC 9.9 (3.8-10.6) k/uL RBC 3.89 L (4.30-5.90) m/uL Hgb 11.6 L (13.0-17.5) gm/dL Hct 37.6 L (39.0-53.0) % Plt Count 305 (150-450) k/uL Comprehensive Metabolic Panel 09/13/18 Range/Units 17:50 Sodium 141 (137-145) mmol/L Potassium 4.0 (3.5-5.1) mmol/L Chloride 110 H (98-107) mmol/L Carbon Dioxide 20 L (22-30) mmol/L BUN 23 H (9-20) mg/dL Creatinine 0.82 (0.66-1.25) mg/dL Glucose 142 H (74-99) mg/dL Calcium 9.2 (8.4-10.2) mg/dL AST 30 (17-59) U/L ALT 35 (21-72) U/L Alkaline Phosphatase 303 H (38-126) U/L Total Protein 6.3 (6.3-8.2) g/dL Albumin 3.9 (3.5-5.0) g/dL Current Medications Generic Name Dose Route Start Last Admin Trade Name Freq PRN Reason Stop Dose Admin Alprazolam 0.25 mg 09/13/18 22:20 Xanax PO DAILY PRN Anxiety Aspirin 325 mg 09/14/18 09:00 Aspirin PO DAILY NILS Citalopram Hydrobromide 40 mg 09/14/18 09:00 Celexa PO DAILY NILS Diclofenac Sodium 1 gm 09/13/18 22:30 Voltaren Gel TOPICAL TID NILS Fluticasone Propionate 2 spray 09/13/18 22:30 09/13/18 23:49 Flonase Nasal [place] EA NOSTRIL 2 spray BID NILS Administration Hydromorphone HCl 0.5 mg 09/13/18 22:27 09/14/18 08:10 Dilaudid IVP 0.5 mg Q3HR PRN Administration Pain Hyoscyamine 0.125 mg 09/13/18 22:20 Levsin PO AC-TID PRN GI UPSET/PAIN Ibuprofen 800 mg 09/13/18 22:30 09/13/18 23:00 Motrin PO 800 mg HS NILS Administration Insulin Aspart 0 unit 09/14/18 07:30 Novolog SQ ACHS NILS Protocol Loratadine 10 mg 09/13/18 22:30 09/13/18 22:59 Claritin PO 10 mg HS NILS Administration Metformin HCl 500 mg 09/13/18 22:30 09/13/18 22:59 Glucophage PO 500 mg BID NILS Administration Morphine Sulfate 15 mg 09/13/18 22:30 09/13/18 22:59 Msir PO 15 mg BID PRN Administration pain Nitroglycerin 0.4 mg 09/13/18 20:24 Nitrostat SUBLINGUAL Q5M PRN Chest Pain Pantoprazole Sodium 40 mg 09/13/18 22:30 09/13/18 22:59 Protonix PO 40 mg BID NILS Administration Tamsulosin HCl 0.4 mg 09/13/18 22:30 09/13/18 23:00 Flomax PO 0.4 mg HS NILS Administration Temazepam 30 mg 09/13/18 22:30 09/13/18 22:59 Restoril PO 30 mg HS PRN Administration Insomnia Intake and Output 09/13/18 09/14/18 09/14/18 22:59 06:59 14:59 Other: # Voids 1 1 Weight 79.3 kg 09/13/18 17:50 09/13/18 17:50 EKG Interpretations (text) EKG shows normal sinus rhythm with no acute changes. Assessment and Plan Plan: Assessment and plan #1 episode of diaphoresis with chest discomfort. Chest pain is atypical for acute coronary syndrome. CTA ruled out PE. EKG shows normal sinus rhythm with no acute changes. Patient does state that he had a stress test performed this year we will take a copy of that from the office. He also states that he had a heart catheterization within the past 2 years which was reported to be normal. #2 diabetes #3 hypertension uncontrolled #4 hyperlipidemia #5 history of nephrolithiasis Plan Patient had an echocardiogram with Doppler study performed in June of this year which revealed a normal left ventricular systolic function. We will start the patient on an EILEEN inhibitor for more optimal blood pressure control, we will also recommend the patient to be on a statin with his known diabetes. Replace magnesium. We will obtain Dr. Young's note from the office. DNP note has been reviewed, I agree with a documented findings and plan of care. Patient was seen and examined.
[2018-09-14] MEDS ORDERED: ATORVASTATIN 40 MG TAB PO SCH (09:00)
[2018-09-14] MEDS ORDERED: ASPIRIN 81 MG PO SCH (09:00)
[2018-09-14] MEDS ORDERED: ASPIRIN 325 MG TAB PO SCH (09:00)
[2018-09-14] MEDS: INSULIN ASPART 100 UNIT/ML 1 ML 10 ML VIAL SQ SCH ×4 (09:05→20:25)
[2018-09-14] MEDS: DICLOFENAC SODIUM GEL 100 GM TUBE TOPICAL SCH ×4 (09:05→21:09)
[2018-09-14] MEDS: PANTOPRAZOLE 40 MG TABLET PO SCH ×2 (09:44→20:25)
[2018-09-14] MEDS: FLUTICASONE 50MCG/SPRAY NASAL 16GM EA NOSTRIL SCH ×2 (09:44→20:20)
[2018-09-14] MEDS: CITALOPRAM HYDROBROMIDE 20 MG TAB PO SCH (09:45)
[2018-09-14] MEDS: ASPIRIN 81 MG PO SCH (09:45)
[2018-09-14] MEDS: LISINOPRIL 5 MG TAB PO SCH (09:45)
[2018-09-14] MEDS: metFORMIN 500 MG TAB PO SCH (09:45)
[2018-09-14 11:46] LABS: Glucose,Whole Blood 120 mg/dL (75-99)
--- NOTE | 2018-09-14 12:21 | P.HPIM ---
History of Present Illness H&P Date: 09/14/18 Chief Complaint: Chest pain and diaphoresis This is a [address] Hastings. Patient presents to the emergency room complaining of chest pain diaphoresis yesterday when he was at work. Patient denies any associated symptoms of radiation to neck or arms. Patient denies any nausea or vomiting with chest pain recurrence. Patient states he is an ex- smoker. Patient denies any alcohol symptoms. Patient denies any significant family history of coronary artery disease. Patient is known past medical history of essential hypertension, deep diabetes mellitus, hyperlipidemia, nephrolithiasis, prostate disorder, migraine, diverticulosis, kidney stones, neuropathy of the hands and feet, previous heart cath, anxiety, Ashley an EGD. Chest x-ray completed emergency room showing mild pulmonary fibrosis. Inspiration is decreased compared to old exam. Normal heart failure. Dimer slightly elevated 0.63. CTA complete showing no evidence of pulmonary embolism. Pulmonary emphysema. There is scarring and atelectasis at the lung bases unchanged. Troponins negative. At this time patient is resting comfortably in bed. Patient denies any chest pain or shortness of breath. Patient denies nausea vomiting diarrhea. Patient denies any urinary burning or frequency Review of Systems Please refer to HPI otherwise unremarkable Past Medical History Past Medical History: Cancer, Chest Pain / Angina, Diabetes Mellitus, GERD/ Reflux, Hypertension, Prostate Disorder Additional Past Medical History / Comment(s): migraines, diverticulosis, kidney stones, neurpathy hands & feet, low BACK PAIN-sees Dr. 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 RIGHT BREAST BIOPSY, TOTAL LT KNEE ; LT FOOT , LARA INGUINAL HERNIA, PERCUTANEOUS NEPHROLITHOTOMY. BILATERAL hand surgery. , back procedure for nerve endings and [facility]one injections [facility], colonoscopy.ESOPHGEAL DILATION, eye sx Past Anesthesia/Blood Transfusion Reactions: Motion Sickness Additional Past Anesthesia/Blood Transfusion Reaction / Comment(s): NEVER HAD ANY BLOOD TRANSFUSIONS Smoking Status: Former smoker - Past Family History Father Family Medical History: Cancer Mother Family Medical History: Liver Disease Additional Family Medical History / Comment(s): Mother had hepatitis. Medications and Allergies Home Medications Medication Instructions Recorded Confirmed Type Temazepam [Restoril] 30 mg PO HS 03/05/15 09/13/18 History Citalopram Hydrobromide [CeleXA] 40 mg PO DAILY 02/05/16 09/13/18 History Morphine Sulfate Ir [MSIR] 15 mg PO BID 02/05/16 09/13/18 History Levocetirizine Dihydrochloride 5 mg PO HS 07/13/16 09/13/18 History [Xyzal] Tamsulosin [Flomax] 0.4 mg PO HS 07/13/16 09/13/18 History Hyoscyamine Sulfate [Levsin-Sl] 0.125 mg SL AC-TID PRN 08/04/16 09/13/18 History metFORMIN HCL [Glucophage Xr] 500 mg PO BID 11/27/16 09/13/18 History Aspirin EC [Ecotrin Low Dose] 81 mg PO QAM 12/22/16 09/13/18 History Omeprazole 40 mg PO BID 12/22/16 09/13/18 History ALPRAZolam [Xanax] 0.25 mg PO DAILY PRN 02/26/18 09/13/18 History Ibuprofen [Motrin] 800 mg PO HS 02/26/18 09/13/18 History Fluticasone Nasal [place] [Flonase 2 spr EA NOSTRIL BID 03/26/18 09/13/18 History Nasal [place]] Insulin Glargine,Hum.rec.anlog See Protocol SQ DAILY PRN 03/26/18 09/13/18 History [Toujeo Solostar] Diclofenac Sodium [Voltaren Gel] 1 applic TOPICAL TID 07/21/18 09/13/18 History Allergies Allergy/AdvReac Type Severity Reaction Status Date / Time cephalexin monohydrate Allergy Rash/Hives Verified 09/13/18 21:35 [From Keflex] clarithromycin [From Biaxin] Allergy Unknown Verified 09/13/18 21:35 gentamicin [Gentamicin] Allergy Unknown Verified 09/13/18 21:35 naproxen Allergy Unknown Verified 09/13/18 21:35 Penicillins Allergy Anaphylaxis Verified 09/13/18 21:35 Sulfa (Sulfonamide Allergy Rash/Hives Verified 09/13/18 21:35 Antibiotics) promethazine AdvReac Nausea & Verified 09/13/18 21:35 Vomiting Physical Exam Vitals: Vital Signs Temp Pulse Pulse Resp BP BP Pulse Ox 09/14/18 11:20 65 16 111/67 92 L 09/14/18 08:00 98 F 61 16 121/64 93 L 09/14/18 03:25 97.9 F 72 15 113/63 96 09/14/18 03:21 16 09/14/18 00:00 16 09/13/18 21:28 97.9 F 97 15 198/83 96 09/13/18 20:00 55 L 18 176/85 96 09/13/18 19:50 62 20 176/85 97 09/13/18 19:40 176/85 09/13/18 19:30 61 11 L 172/103 09/13/18 19:20 58 L 14 172/103 96 09/13/18 19:10 56 L 20 172/103 96 09/13/18 19:00 63 20 186/102 97 09/13/18 18:50 56 L 15 186/102 96 09/13/18 18:40 60 15 186/102 96 09/13/18 18:30 58 L 14 171/95 96 09/13/18 18:20 68 20 171/95 09/13/18 18:10 62 20 171/95 97 09/13/18 18:00 61 20 145/87 96 09/13/18 17:50 66 20 145/87 97 09/13/18 17:40 62 20 145/87 97 09/13/18 17:37 91 L 09/13/18 17:26 97.8 F 67 20 182/76 98 Intake and Output 09/13/18 09/14/18 09/14/18 22:59 06:59 14:59 Other: # Voids 1 1 Weight 79.3 kg Head normocephalic Neck supple Lungs clear to auscultation bilaterally no wheezing or crackles Heart regular rate and rhythm S1-S2, no rub or gallop Abdomen is soft nontender nondistended positive bowel sounds no hepatosplenomegaly Extremities no edema Neuro alert and orientated to 3 Results CBC & Chem 7: 09/13/18 17:50 09/13/18 17:50 Labs: Abnormal Lab Results - Last 24 Hours (Table) 09/13/18 09/13/18 09/13/18 Range/Units 17:50 17:50 17:50 RBC 3.89 L (4.30-5.90) m/uL Hgb 11.6 L (13.0-17.5) gm/dL Hct 37.6 L (39.0-53.0) % MCHC 30.9 L (31.0-37.0) g/dL RDW 21.2 H (11.5-15.5) % D-Dimer (<0.60) mg/L FEU Chloride 110 H (98-107) mmol/L Carbon Dioxide 20 L (22-30) mmol/L BUN 23 H (9-20) mg/dL Glucose 142 H (74-99) mg/dL POC Glucose (mg/dL) (75-99) mg/dL Alkaline Phosphatase 303 H (38-126) U/L Total Creatine Kinase 260 H (55-170) U/L CK-MB (CK-2) 5.1 H (0.0-2.4) ng/mL 09/13/18 09/13/18 09/13/18 Range/Units 17:50 18:09 23:26 RBC (4.30-5.90) m/uL Hgb (13.0-17.5) gm/dL Hct (39.0-53.0) % MCHC (31.0-37.0) g/dL RDW (11.5-15.5) % D-Dimer 0.63 H (<0.60) mg/L FEU Chloride (98-107) mmol/L Carbon Dioxide (22-30) mmol/L BUN (9-20) mg/dL Glucose (74-99) mg/dL POC Glucose (mg/dL) 137 H (75-99) mg/dL Alkaline Phosphatase (38-126) U/L Total Creatine Kinase 213 H (55-170) U/L CK-MB (CK-2) 4.5 H (0.0-2.4) ng/mL 09/14/18 09/14/18 09/14/18 Range/Units 05:43 06:25 11:39 RBC (4.30-5.90) m/uL Hgb (13.0-17.5) gm/dL Hct (39.0-53.0) % MCHC (31.0-37.0) g/dL RDW (11.5-15.5) % D-Dimer (<0.60) mg/L FEU Chloride (98-107) mmol/L Carbon Dioxide (22-30) mmol/L BUN (9-20) mg/dL Glucose (74-99) mg/dL POC Glucose (mg/dL) 138 H 120 H (75-99) mg/dL Alkaline Phosphatase (38-126) U/L Total Creatine Kinase (55-170) U/L CK-MB (CK-2) 3.7 H (0.0-2.4) ng/mL Thrombosis Risk Factor Assmnt - Choose All That Apply Each Risk Factor Represents 2 Points: Age 61-74 years Thrombosis Risk Factor Assessment Total Risk Factor Score: 2 Thrombosis Risk Factor Assessment Level: Low Risk Assessment and Plan Assessment: 1. Chest pain diaphoresis. EKG completed showing normal sinus rhythm. Troponins negative. chest x-ray showed mild pulmonary fibrosis. Inspiration is decreased compared to old exam. No heart failure. CTA completed ring no evidence of pulmonary embolism. Pulmonary emphysema. There is scarring and atelectasis at the lung bases unchanged. Per cardiology services she had 2-D echo Doppler study performed in June of this year which revealed a normal left ventricular systolic function patient to be started on EILEEN inhibitor and records from Dr. Young office will be obtained. 2. Elevated alkaline phosphatase. We'll hold lipitor at this time. Will repeat CMP in a.m. per previous note patient has chronically elevated alkaline phosphatase with biliary duct dilation. 3. Diabetes mellitus type 2. Metformin currently on hold. sliding scale insulin has been added 4. Essential hypertension 5. History of peripheral neuropathy 6. History of chronic back pain. Patient sees Dr. Jackson outpatient per pain management 7. History of GERD 8. Ex-smoker 9. Recent hospitalization in June of this year for bacteremia and SIRS GI Prophylaxis Protonix. DVT prophylaxis Lovenox Time with Patient: Greater than 30 (Greater than 60% of the total time spent in counseling and coordination of care. I performed an examination of the patient and discussed their management with the Nurse Practitioner. I have reviewed the Nurse Practitioner's notes and agree with the documented findings and plan of care)
[2018-09-14 17:18] LABS: Glucose,Whole Blood 112 mg/dL (75-99)
[2018-09-14] MEDS: TAMSULOSIN 0.4 MG CAP.ER.24H PO SCH (20:25)
[2018-09-14] MEDS: LORATADINE 10 MG TAB PO SCH (20:25)
[2018-09-14 20:28] LABS: Glucose,Whole Blood 102 mg/dL (75-99)
[2018-09-14] MEDS: IBUPROFEN 800 MG TAB PO SCH (21:11)
[2018-09-15] MEDS: HYDROmorphone 0.5 MG/0.5 ML SYRINGE IVP PRN ×7 (01:51→23:18)
[2018-09-15 06:09] LABS: Anisocytosis Moderate; HCT 38.2 % (39.0-53.0); Hypochromasia Moderate; MCH 30.1 pg (25.0-35.0); MCHC 31.3 g/dL (31.0-37.0); MCV 96.2 fL (80.0-100.0); Macrocytosis Slight; Mean Platelet Volume 7.7; Platelet Count 316 k/uL (150-450); Poikilocytosis Slight; RBC 3.97 m/uL (4.30-5.90); RDW 21.1 % (11.5-15.5); WBC 8.7 k/uL (3.8-10.6)
[2018-09-15 06:16] LABS: ALT 31 U/L (21-72); AST 20 U/L (17-59); Albumin 3.4 g/dL (3.5-5.0); Alkaline Phosphatase 232 U/L (38-126); Anion Gap 6 mmol/L; Blood Urea Nitrogen 23 mg/dL (9-20); Calcium 8.9 mg/dL (8.4-10.2); Carbon Dioxide 26 mmol/L (22-30); Chloride 107 mmol/L (98-107); Glucose 110 mg/dL (74-99); Potassium 4.5 mmol/L (3.5-5.1); Sodium 139 mmol/L (137-145); Total Bilirubin 0.7 mg/dL (0.2-1.3); Total Protein 5.6 g/dL (6.3-8.2)
[2018-09-15 06:33] LABS: Basophils # (M) 0.09 k/uL (0-0.2); Eosinophils # (M) 0.52 k/uL (0-0.7); Lymphocytes # (M) 2.35 k/uL (1.0-4.8); Monocytes # (M) 1.39 k/uL (0-1.0); Neutrophils # (M) 4.35 k/uL (1.3-7.7); Neutrophils % (M) 50 %; Nucleated Red Blood Cells 0 /100 WBC (0-0); Ovalocytes Present; Total Cells Counted 100
[2018-09-15 06:41] LABS: Glucose,Whole Blood 123 mg/dL (75-99)
[2018-09-15] MEDS: INSULIN ASPART 100 UNIT/ML 1 ML 10 ML VIAL SQ SCH ×4 (07:19→19:51)
[2018-09-15] MEDS: DICLOFENAC SODIUM GEL 100 GM TUBE TOPICAL SCH ×3 (07:26→20:05)
[2018-09-15] MEDS: ASPIRIN 81 MG PO SCH (07:27)
[2018-09-15] MEDS: FLUTICASONE 50MCG/SPRAY NASAL 16GM EA NOSTRIL SCH ×2 (07:27→20:01)
[2018-09-15] MEDS: CITALOPRAM HYDROBROMIDE 20 MG TAB PO SCH (07:28)
[2018-09-15] MEDS: ENOXAPARIN 40 MG/0.4 ML SYRINGE SQ SCH (07:28)
[2018-09-15] MEDS: PANTOPRAZOLE 40 MG TABLET PO SCH ×2 (07:28→20:02)
[2018-09-15] MEDS: LISINOPRIL 5 MG TAB PO SCH (07:28)
--- NOTE | 2018-09-15 09:34 | P.PN ---
Subjective Progress Note Date: 09/15/18 This is a 68-year-old gentleman who follows regularly with Dr. Young in the office. 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 He states that he was at work, became suddenly severely diaphoretic, states also that he developed chest discomfort at this time. The staff thought his sugars may have been low and they gave him some candies. Symptoms continued to worsen and they said the patient down in the chair, he states that the pain was sharp stabbing pains, then just felt like a persistent ache in his chest. He also states that with minimal exertion recently he has noticed himself to be short of breath and has developed significant bilateral peripheral edema which this morning has also resolved. 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 Patient also states that he has had a cardiac catheterization within the past couple of years at [facility] which was reported to be normal. The patient as stated does follow with Dr. Young in the office, he apparently has had a stress test within this past year which has been reported to be normal. Chest x -ray on arrival here revealed mild pulmonary fibrosis. CTA of the chest does not reveal evidence of pulmonary embolism. EKG shows normal sinus rhythm with no acute changes. Blood pressure on arrival 182/76, heart rate in the 60s, 90% on room air. Let pressure this morning 114/60 with a heart rate in the 70s, 96 % on 2 L of oxygen. White blood cell count is normal, hemoglobin 11 6, platelet count 305. D-dimer 0.63, sodium 141, potassium 4.0, BUN 23, creatinine 0.8. Troponins negative 3, alk phos 303, mag 1.7. Cholesterol 119 , triglycerides 65, LDL 55, HDL 51. At the time of my examination this morning , patient is currently chest pain-free. No evidence of any peripheral edema. 09/15: Vital signs have been stable with a pulse running in the 60s and 70s, blood pressure this morning 160/82, pulse ox 91-93% on room air. Hemoglobin 12.0, BUN 23 and creatinine 0.9. Capillary blood glucose running between 102 and 123. Alkaline phosphatase is 232 which is down from 303. Patient states that he woke up this morning in a sweat but his blood sugar was 110 at the time. There was no noted arrhythmias, bradycardia or tachycardias. Pedal edema is resolved. Patient states that he wears a brace on both knees because he has had knee replacements done in the past. Patient has been instructed to wear knee-high VARSHA hose as well when he is working and standing on his feet for any period of time. Patient is cleared from cardiology for discharge home. Patient will follow-up in the office with Dr. Young. Objective - Vital Signs Vital signs: Vital Signs Temp 97.7 F 09/15/18 07:15 Pulse 73 09/15/18 08:00 Resp 16 09/15/18 08:00 BP 160/82 09/15/18 07:15 Pulse Ox 91 L 09/15/18 07:15 Intake & Output 09/14/18 09/15/18 09/15/18 18:59 06:59 18:59 Other: # Voids 2 - Exam GENERAL: 68-year-old gentleman in no acute distress at the time of my examination HEENT: Head is atraumatic, normocephalic. Pupils equal, round. Sclera anicteric. Conjunctiva are clear. Mucous membranes of the mouth are moist. Neck is supple. There is no elevated jugular venous pressure. HEART EXAMINATION: Heart S1, S2 normal. No murmur or gallop heard. CHEST EXAMINATION: Lungs are clear to auscultation and precussion. No chest wall tenderness is noted on palpation or with deep breathing. ABDOMEN: Soft, nontender. Bowel sounds are heard. No organomegaly noted. EXTREMITIES: 2+ peripheral pulses with no evidence of peripheral edema and no calf tenderness noted. NEUROLOGIC patient is awake, alert and oriented 3 . - Labs CBC & Chem 7: 09/15/18 05:51 09/15/18 05:51 Labs: Abnormal Lab Results - Last 24 Hours (Table) 09/14/18 09/14/18 09/14/18 Range/Units 11:39 17:14 20:22 RBC (4.30-5.90) m/uL Hgb (13.0-17.5) gm/dL Hct (39.0-53.0) % RDW (11.5-15.5) % Monocytes # (Manual) (0-1.0) k/uL BUN (9-20) mg/dL Glucose (74-99) mg/dL POC Glucose (mg/dL) 120 H 112 H 102 H (75-99) mg/dL Alkaline Phosphatase (38-126) U/L Total Protein (6.3-8.2) g/dL Albumin (3.5-5.0) g/dL 09/15/18 09/15/18 09/15/18 Range/Units 05:51 05:51 06:40 RBC 3.97 L (4.30-5.90) m/uL Hgb 12.0 L (13.0-17.5) gm/dL Hct 38.2 L (39.0-53.0) % RDW 21.1 H (11.5-15.5) % Monocytes # (Manual) 1.39 H (0-1.0) k/uL BUN 23 H (9-20) mg/dL Glucose 110 H (74-99) mg/dL POC Glucose (mg/dL) 123 H (75-99) mg/dL Alkaline Phosphatase 232 H (38-126) U/L Total Protein 5.6 L (6.3-8.2) g/dL Albumin 3.4 L (3.5-5.0) g/dL Assessment and Plan Plan: #1 episode of diaphoresis with chest discomfort. Chest pain is atypical for acute coronary syndrome. CTA ruled out PE. EKG shows normal sinus rhythm with no acute changes. Patient does state that he had a stress test performed this year we will take a copy of that from the office. He also states that he had a heart catheterization within the past 2 years which was reported to be normal. #2 diabetes #3 hypertension uncontrolled #4 hyperlipidemia #5 history of nephrolithiasis Plan Patient is cleared for discharge from cardiology. Patient may continue aspirin 81 mg daily, lisinopril 5 mg daily. Prescription will be sent to his pharmacy for lisinopril. Follow-up Dr. Young in one to 2 weeks. Nurse Practitioner note has been reviewed, I agree with a documented findings and plan of care. Patient was seen and examined.
--- NOTE | 2018-09-15 10:44 | US ---
EXAMINATION TYPE: US carotid duplex BILAT DATE OF EXAM: 09/15/2018 COMPARISON: Prior carotid ultrasound November 16, 2014 CLINICAL HISTORY: SYNCOPE. EXAM MEASUREMENTS: RIGHT: Peak Systolic Velocity (PSV) cm/sec ----- Right CCA: 98.4 ----- Right ICA: 117.1 ----- Right ECA: 80.6 ICA/CCA ratio: 1.2 RIGHT: End Diastole cm/sec ----- Right CCA: 14.4 ----- Right ICA: 37.0 ----- Right ECA: 11.1 LEFT: Peak Systolic Velocity (PSV) cm/sec ----- Left CCA: 113.6 ----- Left ICA: 66.5 ----- Left ECA: 66.1 ICA/CCA ratio: 0.6 LEFT: End Diastole cm/sec ----- Left CCA: 18.4 ----- Left ICA: 16.2 ----- Left ECA: 6.3 VERTEBRALS (direction of flow): Right Vertebral: Antegrade Left Vertebral: Antegrade Rhythm: Arrhythmia Grayscale images show mild peripheral plaque bilateral carotid bulbs. Velocity measurements and ratio s remain within normal limits. Arrhythmia noted during real-time scanning. IMPRESSION: Mild atherosclerotic change bilaterally without hemodynamically significant stenosis see n in either internal carotid artery . Note is made of cardiac arrhythmia during real-time scanning, if this is not known finding further investigation with 24 hour Holter monitoring would be advised. Criteria for Assigning % of Stenosis / Diameter reduction (Estimation based on the indirect measurements of the internal carotid artery velocities (ICA PSV). 1. Normal (no stenosis)=ICA PSV < 125 cm/s: ratio < 2.0: ICA EDV<40 cm/s. 2. Less than 50% stenosis=ICA PSV < 125 cm/s: ratio < 2.0: ICA EDV<40 cm/s. 3. 50 to 69% stenosis=ICA PSV of 125 to 230 cm/s: ration 2.0 ? 4.0: ICA EDV 40-100 cm/s. 4. Greater than 70% stenosis to near occlusion= ICA PSV > 230 cm/s: ratio > 4.0: ICA EDV > 100 cm/s. 5. Near occlusion= ICA PSV velocities may be low or undetectable: variable ratio and ICA EDV. 6. Total occlusion=unable to detect flow.
--- NOTE | 2018-09-15 11:08 | US ---
EXAMINATION TYPE: US venous doppler duplex LE DATE OF EXAM: 09/15/2018 10:15 AM COMPARISON: Left lower extremity venous ultrasound October 07, 2014 CLINICAL HISTORY: ELEVATED D DIMER. SIDE PERFORMED: Bilateral TECHNIQUE: The lower extremity deep venous system is examined utilizing real time linear array sonog rajesh with graded compression, doppler sonography and color-flow sonography. VESSELS IMAGED: External Iliac Vein (EIV) Common Femoral Vein Deep Femoral Vein Greater Saphenous Vein * Femoral Vein Popliteal Vein Small Saphenous Vein * Proximal Calf Veins (* superficial vessels) Right Leg: Negative for DVT Left Leg: Negative for DVT Grayscale, color doppler, spectral doppler imaging performed of the deep veins of the bilateral lower extremities. There is normal flow, compressibility, vascular waveforms. IMPRESSION: No ultrasound evidence for acute DVT in either lower extremity on today's study.
[2018-09-15 11:19] LABS: Glucose,Whole Blood 129 mg/dL (75-99)
--- NOTE | 2018-09-15 14:39 | P.PN ---
Subjective Progress Note Date: 09/15/18 This is a [address] Hsatings. Patient presents to the emergency room complaining of chest pain diaphoresis yesterday when he was at work. Patient denies any associated symptoms of radiation to neck or arms. Patient denies any nausea or vomiting with chest pain recurrence. Patient states he is an ex- smoker. Patient denies any alcohol symptoms. Patient denies any significant family history of coronary artery disease. Patient is known past medical history of essential hypertension, deep diabetes mellitus, hyperlipidemia, nephrolithiasis, prostate disorder, migraine, diverticulosis, kidney stones, neuropathy of the hands and feet, previous heart cath, anxiety, Ashley an EGD. Chest x-ray completed emergency room showing mild pulmonary fibrosis. Inspiration is decreased compared to old exam. Normal heart failure. Dimer slightly elevated 0.63. CTA complete showing no evidence of pulmonary embolism. Pulmonary emphysema. There is scarring and atelectasis at the lung bases unchanged. Troponins negative. At this time patient is resting comfortably in bed. Patient denies any chest pain or shortness of breath. Patient denies nausea vomiting diarrhea. Patient denies any urinary burning or frequency On 09/15/2018 patient was seen and examined at the observation unit he is alert and oriented 3 in no apparent distress he is still having episodes of chest pain, otherwise he denies any other complaints there is no fever or chills no headache or dizziness no cough no nausea or vomiting no abdominal pain no diarrhea and no urinary symptoms Objective - Vital Signs Vital signs: Vital Signs Temp 98.2 F 09/15/18 11:39 Pulse 59 L 09/15/18 11:43 Resp 18 09/15/18 11:43 BP 160/82 09/15/18 11:39 Pulse Ox 91 L 09/15/18 11:39 Intake & Output 09/14/18 09/15/18 09/15/18 18:59 06:59 18:59 Other: # Voids 2 1 - Exam Head normocephalic and atraumatic Neck supple no JVD no goiter Lungs clear to auscultation bilaterally no wheezing or crackles Heart regular rate and rhythm S1-S2, no rub or gallop Abdomen is soft nontender nondistended positive bowel sounds no hepatosplenomegaly Extremities no edema no cyanosis or clubbing Neuro alert and orientated to 3 - Labs CBC & Chem 7: 09/15/18 05:51 12/23/18 05:51 Labs: Abnormal Lab Results - Last 24 Hours (Table) 09/14/18 09/14/18 09/15/18 Range/Units 17:14 20:22 05:51 RBC 3.97 L (4.30-5.90) m/uL Hgb 12.0 L (13.0-17.5) gm/dL Hct 38.2 L (39.0-53.0) % RDW 21.1 H (11.5-15.5) % Monocytes # (Manual) 1.39 H (0-1.0) k/uL BUN (9-20) mg/dL Glucose (74-99) mg/dL POC Glucose (mg/dL) 112 H 102 H (75-99) mg/dL Alkaline Phosphatase (38-126) U/L Total Protein (6.3-8.2) g/dL Albumin (3.5-5.0) g/dL 09/15/18 09/15/18 09/15/18 Range/Units 05:51 06:40 11:18 RBC (4.30-5.90) m/uL Hgb (13.0-17.5) gm/dL Hct (39.0-53.0) % RDW (11.5-15.5) % Monocytes # (Manual) (0-1.0) k/uL BUN 23 H (9-20) mg/dL Glucose 110 H (74-99) mg/dL POC Glucose (mg/dL) 123 H 129 H (75-99) mg/dL Alkaline Phosphatase 232 H (38-126) U/L Total Protein 5.6 L (6.3-8.2) g/dL Albumin 3.4 L (3.5-5.0) g/dL Assessment and Plan Plan: 1. Chest pain diaphoresis. EKG completed showing normal sinus rhythm. Troponins negative. chest x-ray showed mild pulmonary fibrosis. Inspiration is decreased compared to old exam. No heart failure. CTA completed ring no evidence of pulmonary embolism. Pulmonary emphysema. There is scarring and atelectasis at the lung bases unchanged. Per cardiology services she had 2-D echo Doppler study performed in June of this year which revealed a normal left ventricular systolic function patient to be started on EILEEN inhibitor and records from Dr. Young office will be obtained. On 09/15/2018 patient was evaluated by cardiology and was cleared for discharge , however patient didn't have further episodes of chest pain he did not feel comfortable to go home especially that he lives in [place] and will have significant difficulty coming back to the hospital in case of having significant chest pain at home, he requested to delay discharge to the morning 2. Elevated alkaline phosphatase. We'll hold lipitor at this time. Will repeat CMP in a.m. per previous note patient has chronically elevated alkaline phosphatase with biliary duct dilation. 3. Diabetes mellitus type 2. Metformin currently on hold. sliding scale insulin has been added 4. Essential hypertension 5. History of peripheral neuropathy 6. History of chronic back pain. Patient sees Dr. Jackson outpatient per pain management 7. History of GERD 8. Ex-smoker 9. Recent hospitalization in June of this year for bacteremia and SIRS GI Prophylaxis Protonix. DVT prophylaxis Lovenox
[2018-09-15 17:04] LABS: Glucose,Whole Blood 111 mg/dL (75-99)
[2018-09-15] MEDS: LORATADINE 10 MG TAB PO SCH (20:02)
[2018-09-15] MEDS: TAMSULOSIN 0.4 MG CAP.ER.24H PO SCH (20:02)
[2018-09-15] MEDS: IBUPROFEN 800 MG TAB PO SCH (20:02)
[2018-09-15 20:41] LABS: Glucose,Whole Blood 128 mg/dL (75-99)
[2018-09-15] MEDS: TEMAZEPAM 30 MG CAP PO PRN (23:44)
[2018-09-16 07:22] LABS: Glucose,Whole Blood 116 mg/dL (75-99)
[2018-09-16 07:41] VITALS: BP 164/82; PULSE 69; RESP 18; TEMP 98.3
[2018-09-16] MEDS: INSULIN ASPART 100 UNIT/ML 1 ML 10 ML VIAL SQ SCH (08:02)
[2018-09-16] MEDS: ENOXAPARIN 40 MG/0.4 ML SYRINGE SQ SCH (08:09)
[2018-09-16] MEDS: DICLOFENAC SODIUM GEL 100 GM TUBE TOPICAL SCH (08:09)
[2018-09-16] MEDS: PANTOPRAZOLE 40 MG TABLET PO SCH (08:09)
[2018-09-16] MEDS: FLUTICASONE 50MCG/SPRAY NASAL 16GM EA NOSTRIL SCH (08:09)
[2018-09-16] MEDS: ASPIRIN 81 MG PO SCH (08:09)
[2018-09-16] MEDS: LISINOPRIL 5 MG TAB PO SCH (08:09)
[2018-09-16] MEDS: CITALOPRAM HYDROBROMIDE 20 MG TAB PO SCH (08:09)
[2018-09-16 08:26] LABS: ALT 31 U/L (21-72); AST 22 U/L (17-59); Albumin 4.2 g/dL (3.5-5.0); Alkaline Phosphatase 335 U/L (38-126); Anion Gap 8 mmol/L; Blood Urea Nitrogen 22 mg/dL (9-20); Calcium 9.9 mg/dL (8.4-10.2); Carbon Dioxide 25 mmol/L (22-30); Chloride 108 mmol/L (98-107); Glucose 118 mg/dL (74-99); Potassium 4.7 mmol/L (3.5-5.1); Sodium 141 mmol/L (137-145); Total Bilirubin 0.8 mg/dL (0.2-1.3); Total Protein 6.8 g/dL (6.3-8.2)
[2018-09-16 08:42] LABS: Anisocytosis Moderate; HGB 13.3 gm/dL (13.0-17.5); Hypochromasia Moderate; MCH 29.9 pg (25.0-35.0); MCHC 30.9 g/dL (31.0-37.0); MCV 96.7 fL (80.0-100.0); Macrocytosis Slight; Mean Platelet Volume 8.7; Platelet Count 299 k/uL (150-450); Poikilocytosis Slight; RBC 4.45 m/uL (4.30-5.90); RDW 21.3 % (11.5-15.5)
--- NOTE | 2018-09-16 09:20 | P.PN ---
Subjective Progress Note Date: 09/16/18 This is a 68-year-old gentleman admitted with atypical chest pains and episodes of sweating and dizziness. Patient also had bilateral pedal swelling. Patient' s carotid duplex study did not show any obstructive disease of significance. His venous Doppler study came back negative for thrombi. Patient is clinically stable since yesterday. Patient could be discharged home. Follow-up in the office in one week Objective - Vital Signs Vital signs: Vital Signs Temp 98.3 F 09/16/18 07:40 Pulse 69 09/16/18 07:40 Resp 18 09/16/18 07:40 BP 164/82 09/16/18 07:40 Pulse Ox 91 L 09/16/18 07:40 Intake & Output 09/15/18 09/16/18 09/16/18 18:59 06:59 18:59 Intake Total 200 Balance 200 Intake: Oral 200 Other: Voiding Method Toilet # Voids 1 2 - Exam GENERAL EXAM: Patient is alert and oriented and doesn't appear to be in any acute distress HEENT: Normocephalic. Normal reaction of pupils, equal size, normal range of extraocular motion. No erythema or exudates in the throat. NECK: No masses, no nuchal rigidity. CHEST: No chest wall deformity. LUNGS: [Equal air entry with no crackles or wheeze.] HEART: [S1 and S2 normal with no audible mumurs or gallops. Regular rhythm, femorals equal on both sides..] ABDOMEN: No hepatosplenomegaly, normal bowel sounds, no guarding or rigidity. SKIN: No rashes CENTRAL NERVOUS SYSTEM: No focal deficits. EXTREMITIES: [No cyanosis, clubbing or edema - Labs CBC & Chem 7: 09/16/18 07:15 09/16/18 07:15 Labs: Abnormal Lab Results - Last 24 Hours (Table) 09/15/18 09/15/18 09/15/18 Range/Units 11:18 17:01 20:40 MCHC (31.0-37.0) g/dL RDW (11.5-15.5) % Chloride (98-107) mmol/L BUN (9-20) mg/dL Glucose (74-99) mg/dL POC Glucose (mg/dL) 129 H 111 H 128 H (75-99) mg/dL Alkaline Phosphatase (38-126) U/L 09/16/18 09/16/18 09/16/18 Range/Units 07:02 07:15 07:15 MCHC 30.9 L (31.0-37.0) g/dL RDW 21.3 H (11.5-15.5) % Chloride 108 H (98-107) mmol/L BUN 22 H (9-20) mg/dL Glucose 118 H (74-99) mg/dL POC Glucose (mg/dL) 116 H (75-99) mg/dL Alkaline Phosphatase 335 H (38-126) U/L Assessment and Plan (1) Pedal edema Current Visit: Yes Status: Acute Code(s): R60.0 - LOCALIZED EDEMA SNOMED Code(s): 933237306 (2) Atypical chest pain Current Visit: No Status: Acute Code(s): R07.89 - OTHER CHEST PAIN SNOMED Code(s): 849250811 Plan: patient could be discharged home from cardiac standpoint. Follow-up in the office in one week
[2018-09-16 09:24] LABS: Band Neutrophils % 1 %; Eosinophils # (M) 0.69 k/uL (0-0.7); Lymphocytes # (M) 3.17 k/uL (1.0-4.8); Metamyelocytes % 1 %; Monocytes # (M) 0.89 k/uL (0-1.0); Myelocytes % 2 %; Neutrophils % (M) 50 %; Nucleated Red Blood Cells 1 /100 WBC (0-0); Total Cells Counted 200; WBC 9.9 k/uL (3.8-10.6)
[2018-09-16 09:25] LABS: Ovalocytes Present; Toxic Granulation Present
--- NOTE | 2018-09-16 10:01 | P.DS ---
Providers Date of admission: 09/13/18 20:24 Expected date of discharge: 09/16/18 Attending physician: Haley Villa Consults: 09/13/18 20:24 Consult Physician Urgent Consulting Provider: Joshua Marley Consult Reason/Comments: chest pain Do you want consulting provider notified?: Yes Primary care physician: Siria Hastings Hospital Course: Discharge diagnosis 1. Chest pain diaphoresis. EKG completed showing normal sinus rhythm. Troponins negative. chest x-ray showed mild pulmonary fibrosis. Inspiration is decreased compared to old exam. No heart failure. CTA completed ring no evidence of pulmonary embolism. Pulmonary emphysema. There is scarring and atelectasis at the lung bases unchanged. Per cardiology services she had 2-D echo Doppler study performed in June of this year which revealed a normal left ventricular systolic function patient to be started on EILEEN inhibitor and records from Dr. Young office will be obtained. On 09/15/2018 patient was evaluated by cardiology and was cleared for discharge , however patient didn't have further episodes of chest pain he did not feel comfortable to go home especially that he lives in [place] and will have significant difficulty coming back to the hospital in case of having significant chest pain at home, he requested to delay discharge to the morning On 09/16/2018 patient states he feels ready to go home today. Patient has been cleared by cardiology. Patient denies any chest pain or shortness breath. Patient denies nausea vomiting or diarrhea. Patient denies any urinary burning or frequency Lisinopril has been added per cardiology 2. Elevated alkaline phosphatase. We'll hold lipitor at this time. Will repeat CMP in a.m. per previous note patient has chronically elevated alkaline phosphatase with biliary duct dilation. 3. Diabetes mellitus type 2. Metformin currently on hold. sliding scale insulin has been added 4. Essential hypertension 5. History of peripheral neuropathy 6. History of chronic back pain. Patient sees Dr. Jackson outpatient per pain management 7. History of GERD 8. Ex-smoker 9. Recent hospitalization in June of this year for bacteremia and SIRS Hospital course This is a [address] Hastings. Patient presents to the emergency room complaining of chest pain diaphoresis yesterday when he was at work. Patient denies any associated symptoms of radiation to neck or arms. Patient denies any nausea or vomiting with chest pain recurrence. Patient states he is an ex- smoker. Patient denies any alcohol symptoms. Patient denies any significant family history of coronary artery disease. Patient is known past medical history of essential hypertension, deep diabetes mellitus, hyperlipidemia, nephrolithiasis, prostate disorder, migraine, diverticulosis, kidney stones, neuropathy of the hands and feet, previous heart cath, anxiety, Ashley an EGD. Chest x-ray completed emergency room showing mild pulmonary fibrosis. Inspiration is decreased compared to old exam. Normal heart failure. Dimer slightly elevated 0.63. CTA complete showing no evidence of pulmonary embolism. Pulmonary emphysema. There is scarring and atelectasis at the lung bases unchanged. Troponins negative. At this time patient is resting comfortably in bed. Patient denies any chest pain or shortness of breath. Patient denies nausea vomiting diarrhea. Patient denies any urinary burning or frequency On 09/15/2018 patient was seen and examined at the observation unit he is alert and oriented 3 in no apparent distress he is still having episodes of chest pain, otherwise he denies any other complaints there is no fever or chills no headache or dizziness no cough no nausea or vomiting no abdominal pain no diarrhea and no urinary symptoms On 09/16/2018 patient has been cleared for discharge from cardiology standpoint patient follow up with cardiology in one week. This time patient states he feels ready to go home. Patient denies chest pain or shortness breath. Patient denies nausea vomiting or diarrhea. Patient denies any urinary burning or frequency. Lisionpril has been added per cardiology services. I performed an examination of the patient and discussed their management with the Nurse Practitioner. I have reviewed the Nurse Practitioner's notes and agree with the documented findings and plan of care Patient Condition at Discharge: Stable Plan - Discharge Summary New Discharge Prescriptions: New Lisinopril [Zestril] 5 mg PO DAILY #30 tab Continue Temazepam [Restoril] 30 mg PO HS Morphine Sulfate Ir [MSIR] 15 mg PO BID Citalopram Hydrobromide [CeleXA] 40 mg PO DAILY Levocetirizine Dihydrochloride [Xyzal] 5 mg PO HS Tamsulosin [Flomax] 0.4 mg PO HS Hyoscyamine Sulfate [Levsin-Sl] 0.125 mg SL AC-TID PRN PRN Reason: Chest Pain metFORMIN HCL [Glucophage Xr] 500 mg PO BID Omeprazole 40 mg PO BID Aspirin EC [Ecotrin Low Dose] 81 mg PO QAM ALPRAZolam [Xanax] 0.25 mg PO DAILY PRN PRN Reason: FLYING Ibuprofen [Motrin] 800 mg PO HS Fluticasone Nasal [place] [Flonase Nasal [place]] 2 spr EA NOSTRIL BID Insulin Glargine,Hum.rec.anlog [[place]o Solostar] See Protocol SQ DAILY PRN PRN Reason: Blood Sugar - High Diclofenac Sodium [Voltaren Gel] 1 applic TOPICAL TID Discharge Medication List Temazepam [Restoril] 30 mg PO HS 03/05/15 [History] Citalopram Hydrobromide [CeleXA] 40 mg PO DAILY 02/05/16 [History] Morphine Sulfate Ir [MSIR] 15 mg PO BID 02/05/16 [History] Levocetirizine Dihydrochloride [Xyzal] 5 mg PO HS 07/13/16 [History] Tamsulosin [Flomax] 0.4 mg PO HS 07/13/16 [History] Hyoscyamine Sulfate [Levsin-Sl] 0.125 mg SL AC-TID PRN 08/04/16 [History] metFORMIN HCL [Glucophage Xr] 500 mg PO BID 11/27/16 [History] Aspirin EC [Ecotrin Low Dose] 81 mg PO QAM 12/22/16 [History] Omeprazole 40 mg PO BID 12/22/16 [History] ALPRAZolam [Xanax] 0.25 mg PO DAILY PRN 02/26/18 [History] Ibuprofen [Motrin] 800 mg PO HS 02/26/18 [History] Fluticasone Nasal [place] [Flonase Nasal [place]] 2 spr EA NOSTRIL BID 03/26/18 [ History] Insulin Glargine,Hum.rec.anlog [[place] Solostar] See Protocol SQ DAILY PRN 03/26 [History] Diclofenac Sodium [Voltaren Gel] 1 applic TOPICAL TID 07/21/18 [History] Lisinopril [Zestril] 5 mg PO DAILY #30 tab 09/15/18 [Rx] Follow up Appointment(s)/Referral(s): Siria Hastings MD [Primary Care Provider] - 1-2 days Adrienne Young MD [STAFF PHYSICIAN] - 1 Week (Call office to schedule a follow up appointment with Dr. Young in one week) Discharge Disposition: HOME SELF-CARE
== END 2018-09-16 10:30 | disposition home or self-care (01) ==
LOC: EC 17:22 → 3SCARD 20:24 → 1SOBS 09-14 21:09
PROVIDERS: ADMIT Internal Medicine; ATTEND Internal Medicine
DX: R07.89 Other chest pain (principal); R61 Generalized hyperhidrosis; E11.40 Type 2 diabetes mellitus with diabetic neuropathy, unspecified; R42 Dizziness and giddiness; I50.9 Heart failure, unspecified; M54.9 Dorsalgia, unspecified; G89.29 Other chronic pain; I25.10 Atherosclerotic heart disease of native coronary artery without angina pectoris; I11.0 Hypertensive heart disease with heart failure; E78.5 Hyperlipidemia, unspecified; R74.8 Abnormal levels of other serum enzymes; G43.909 Migraine, unspecified, not intractable, without status migrainosus; J43.9 Emphysema, unspecified; J84.10 Pulmonary fibrosis, unspecified; C50.929 Malignant neoplasm of unspecified site of unspecified male breast; K21.9 Gastro-esophageal reflux disease without esophagitis; Z85.3 Personal history of malignant neoplasm of breast; Z87.442 Personal history of urinary calculi; Z87.891 Personal history of nicotine dependence; Z90.49 Acquired absence of other specified parts of digestive tract; Z96.652 Presence of left artificial knee joint; Z85.828 Personal history of other malignant neoplasm of skin; Z79.84 Long term (current) use of oral hypoglycemic drugs; Z79.899 Other long term (current) drug therapy; Z79.891 Long term (current) use of opiate analgesic
CPT/HCPCS: 96372 ×2; 96374; 96376 ×2; 99285; 36415; 94760; 93005; 85379; 83880; 80061; 80053 ×3; 82550 ×2; 82553 ×2; 83735; 84484 ×2; 85025 ×3; 85610; 85730; 71046; 93880; 93970; 71275; G0378 ×4; J1650 ×2; J1170 ×3; Q9967

== ENCOUNTER 2018-10-26 09:50 | Emergency (ER) | payer MEDICARE ==
--- NOTE | 2018-10-26 10:34 | ED ---
Lower Extremity Injury HPI - General Chief Complaint: Extremity Injury, Lower Stated Complaint: PAIN IN LEGS Time Seen by Provider: 10/26/18 10:08 Source: patient, RN notes reviewed Mode of arrival: ambulatory Limitations: no limitations - History of Present Illness Initial Comments: This is a 68-year-old male with a history of peripheral neuropathy history of breast cancer multiple other issues that can be gleaned from the past medical history who states she had several days of a lateral calf pain 10 out of 10 achy -type pain he denies any injury he's had pain like this before he states is somewhat swollen. Doctor and was instructed to come the hospital 2 evaluated for possible DVT. He has no prior history of such. He denies any chest pain or shortness breath fevers chills nausea vomiting or other symptoms this severe pain. MD Complaint: other - Related Data Home Medications Medication Instructions Recorded Confirmed Temazepam [Restoril] 30 mg PO HS 03/05/15 10/26/18 Citalopram Hydrobromide [CeleXA] 40 mg PO DAILY 02/05/16 10/26/18 Morphine Sulfate Ir [MSIR] 15 mg PO BID PRN 02/05/16 10/26/18 Levocetirizine Dihydrochloride 5 mg PO HS 07/13/16 10/26/18 [Xyzal] Tamsulosin [Flomax] 0.4 mg PO HS 07/13/16 10/26/18 Hyoscyamine Sulfate [Levsin-Sl] 0.125 mg SL AC-TID PRN 08/04/16 10/26/18 metFORMIN HCL [Glucophage Xr] 500 mg PO BID 11/27/16 10/26/18 Aspirin EC [Ecotrin Low Dose] 81 mg PO QAM 12/22/16 10/26/18 Omeprazole 40 mg PO BID 12/22/16 10/26/18 ALPRAZolam [Xanax] 0.25 mg PO DAILY PRN 02/26/18 10/26/18 Ibuprofen [Motrin] 800 mg PO HS 02/26/18 10/26/18 Fluticasone Nasal [place] [Flonase 2 spr EA NOSTRIL BID 03/26/18 10/26/18 Nasal [place]] Insulin Glargine,Hum.rec.anlog See Protocol SQ DAILY PRN 03/26/18 10/26/18 [Ysabel Morales] Diclofenac Sodium [Voltaren Gel] 1 applic TOPICAL TID PRN 07/21/18 10/26/18 Furosemide [Lasix] 20 mg PO DIRECTED PRN 10/26/18 10/26/18 Gabapentin [Neurontin] 300 mg PO DAILY PRN 10/26/18 10/26/18 Previous Rx's Medication Instructions Recorded Lisinopril [Zestril] 5 mg PO DAILY #30 tab 09/15/18 Magnesium 200 mg PO DAILY #15 tablet 10/26/18 Allergies Allergy/AdvReac Type Severity Reaction Status Date / Time cephalexin monohydrate Allergy Rash/Hives Verified 10/26/18 09:52 [From Keflex] clarithromycin [From Biaxin] Allergy Unknown Verified 10/26/18 09:52 gentamicin [Gentamicin] Allergy Unknown Verified 10/26/18 09:52 naproxen Allergy Unknown Verified 10/26/18 09:52 Penicillins Allergy Anaphylaxis Verified 10/26/18 09:52 Sulfa (Sulfonamide Allergy Rash/Hives Verified 10/26/18 09:52 Antibiotics) promethazine AdvReac Nausea & Verified 10/26/18 09:52 Vomiting Review of Systems ROS Statement: Those systems with pertinent positive or pertinent negative responses have been documented in the HPI. ROS Other: All systems not noted in ROS Statement are negative. Past Medical History Past Medical History: Cancer, Chest Pain / Angina, Diabetes Mellitus, GERD/ Reflux, Hypertension, Prostate Disorder Additional Past Medical History / Comment(s): migraines, diverticulosis, kidney stones, neurpathy hands & feet, low BACK PAIN-sees Dr. 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 RIGHT BREAST BIOPSY, TOTAL LT KNEE ; LT FOOT , LARA INGUINAL HERNIA, PERCUTANEOUS NEPHROLITHOTOMY. BILATERAL hand surgery. , back procedure for nerve endings and [facility]one injections [facility], colonoscopy.ESOPHGEAL DILATION, eye sx Past Anesthesia/Blood Transfusion Reactions: Motion Sickness Additional Past Anesthesia/Blood Transfusion Reaction / Comment(s): NEVER HAD ANY BLOOD TRANSFUSIONS Past Psychological History: Anxiety Smoking Status: Former smoker Past Alcohol Use History: None Reported Past Drug Use History: None Reported - Past Family History Father Family Medical History: Cancer Mother Family Medical History: Liver Disease Additional Family Medical History / Comment(s): Mother had hepatitis. General Exam - General Exam Comments Initial Comments: This is a well-developed well-nourished awake alert oriented 3 male he is somewhat tearful during the exam Limitations: no limitations General appearance: alert, anxious, in distress Head exam: Present: atraumatic, normocephalic, normal inspection Eye exam: Present: normal appearance, PERRL, EOMI. Absent: scleral icterus, conjunctival injection, periorbital swelling ENT exam: Present: normal exam, mucous membranes moist Neck exam: Present: normal inspection, full ROM. Absent: tenderness, meningismus, lymphadenopathy Respiratory exam: Present: normal lung sounds bilaterally. Absent: respiratory distress, wheezes, rales, rhonchi, stridor Cardiovascular Exam: Present: regular rate, normal rhythm, normal heart sounds. Absent: systolic murmur, diastolic murmur, rubs, gallop, clicks GI/Abdominal exam: Present: soft, normal bowel sounds. Absent: distended, tenderness, guarding, rebound, rigid, bruit, pulsatile mass Extremities exam: Present: full ROM, tenderness (Tenderness to palpation of SOME evidence of increased circumference bilaterally no palpable cords no increased localized temperature.), normal capillary refill. Absent: pedal edema , joint swelling, calf tenderness Back exam: Present: normal inspection, full ROM. Absent: muscle spasm, paraspinal tenderness Neurological exam: Present: alert, oriented X3, CN II-XII intact Psychiatric exam: Present: normal affect, normal mood Skin exam: Present: warm, dry, intact, normal color. Absent: rash Course Vital Signs 10/26/18 10/26/18 09:53 12:49 Temperature 97.9 F Pulse Rate 64 79 Respiratory 18 18 Rate Blood Pressure 210/87 169/99 O2 Sat by Pulse 97 97 Oximetry - Reevaluation(s) Reevaluation #1: 10/26/18 13:52 And did require more medication for the Pain Reevaluation #2: 10/26/18 13:57 We did discuss elevated alk phos on the patient. He has this chronically. Nothing new with respect to the numbers for the patient and . Medical Decision Making - Medical Decision Making I did discuss findings with the patient has . Patient is feeling improved he'll be discharged after IV magnesium is completed. Ultrasound was negative for acute findings. He does have peripheral neuropathy the presentation consistent with myofascial pain relative hypomagnesemia likely some dehydration. He is to follow back up with his doctor return when necessary - Lab Data Result diagrams: 10/26/18 10:38 10/26/18 10:38 Lab Results 10/26/18 10/26/18 10/26/18 Range/Units 10:38 10:38 10:38 WBC 9.2 (3.8-10.6) k/uL RBC 4.18 L (4.30-5.90) m/uL Hgb 12.6 L (13.0-17.5) gm/dL Hct 39.8 (39.0-53.0) % MCV 95.1 (80.0-100.0) fL MCH 30.1 (25.0-35.0) pg MCHC 31.6 (31.0-37.0) g/dL RDW 20.7 H (11.5-15.5) % Plt Count 298 (150-450) k/uL Neutrophils % 62 % Lymphocytes % 22 % Monocytes % 10 % Eosinophils % 2 % Basophils % 1 % Neutrophils # 5.7 (1.3-7.7) k/uL Lymphocytes # 2.0 (1.0-4.8) k/uL Monocytes # 0.9 (0-1.0) k/uL Eosinophils # 0.2 (0-0.7) k/uL Basophils # 0.1 (0-0.2) k/uL Hypochromasia Slight Poikilocytosis Slight Anisocytosis Moderate Macrocytosis Slight D-Dimer (<0.60) mg/L FEU Sodium 142 (137-145) mmol/L Potassium 4.6 (3.5-5.1) mmol/L Chloride 110 H (98-107) mmol/L Carbon Dioxide 25 (22-30) mmol/L Anion Gap 7 mmol/L BUN 20 (9-20) mg/dL Creatinine 0.73 (0.66-1.25) mg/dL Est GFR (CKD-EPI)AfAm >90 (>60 ml/min/1.73 sqM) Est GFR (CKD-EPI)NonAf >90 (>60 ml/min/1.73 sqM) Glucose 118 H (74-99) mg/dL Calcium 9.5 (8.4-10.2) mg/dL Magnesium 1.7 (1.6-2.3) mg/dL Total Bilirubin 0.9 (0.2-1.3) mg/dL AST 21 (17-59) U/L ALT 30 (21-72) U/L Alkaline Phosphatase 531 H (38-126) U/L Total Creatine Kinase 105 (55-170) U/L CK-MB (CK-2) 2.6 H (0.0-2.4) ng/mL CK-MB (CK-2) Rel Index 2.5 Total Protein 6.5 (6.3-8.2) g/dL Albumin 4.1 (3.5-5.0) g/dL 10/26/18 Range/Units 10:38 WBC (3.8-10.6) k/uL RBC (4.30-5.90) m/uL Hgb (13.0-17.5) gm/dL Hct (39.0-53.0) % MCV (80.0-100.0) fL MCH (25.0-35.0) pg MCHC (31.0-37.0) g/dL RDW (11.5-15.5) % Plt Count (150-450) k/uL Neutrophils % % Lymphocytes % % Monocytes % % Eosinophils % % Basophils % % Neutrophils # (1.3-7.7) k/uL Lymphocytes # (1.0-4.8) k/uL Monocytes # (0-1.0) k/uL Eosinophils # (0-0.7) k/uL Basophils # (0-0.2) k/uL Hypochromasia Poikilocytosis Anisocytosis Macrocytosis D-Dimer 0.68 H (<0.60) mg/L FEU Sodium (137-145) mmol/L Potassium (3.5-5.1) mmol/L Chloride (98-107) mmol/L Carbon Dioxide (22-30) mmol/L Anion Gap mmol/L BUN (9-20) mg/dL Creatinine (0.66-1.25) mg/dL Est GFR (CKD-EPI)AfAm (>60 ml/min/1.73 sqM) Est GFR (CKD-EPI)NonAf (>60 ml/min/1.73 sqM) Glucose (74-99) mg/dL Calcium (8.4-10.2) mg/dL Magnesium (1.6-2.3) mg/dL Total Bilirubin (0.2-1.3) mg/dL AST (17-59) U/L ALT (21-72) U/L Alkaline Phosphatase (38-126) U/L Total Creatine Kinase (55-170) U/L CK-MB (CK-2) (0.0-2.4) ng/mL CK-MB (CK-2) Rel Index Total Protein (6.3-8.2) g/dL Albumin (3.5-5.0) g/dL - Radiology Data Radiology results: report reviewed (I did review the imaging and report no acute findings), image reviewed Disposition Clinical Impression: Bilateral calf pain, Dehydration, Peripheral neuropathy, Hypomagnesemia Disposition: HOME SELF-CARE Condition: Good Instructions (If sedation given, give patient instructions): Musculoskeletal Pain (ED), Hypomagnesemia (ED), Dehydration (ED) Prescriptions: Magnesium 200 mg PO DAILY #15 tablet Is patient prescribed a controlled substance at d/c from ED?: No Referrals: Siria Hastings MD [Primary Care Provider] - 1-2 days
[2018-10-26] MEDS: fentaNYL (PF) 50 MCG/ML 2 ML AMP IV STA (10:44)
[2018-10-26] MEDS: SODIUM CHLORIDE 0.9% 1,000 ML IV STA (10:46)
[2018-10-26] MEDS: CYCLOBENZAPRINE 10 MG TAB PO STA (10:48)
[2018-10-26 10:50] LABS: Anisocytosis Moderate; Basophils # (A) 0.1 k/uL (0-0.2); Basophils % (A) 1 %; Eosinophils # (A) 0.2 k/uL (0-0.7); Eosinophils % (A) 2 %; HCT 39.8 % (39.0-53.0); HGB 12.6 gm/dL (13.0-17.5); Hypochromasia Slight; Lymphocytes % (A) 22 %; MCH 30.1 pg (25.0-35.0); MCHC 31.6 g/dL (31.0-37.0); MCV 95.1 fL (80.0-100.0); Macrocytosis Slight; Mean Platelet Volume 8.5; Monocytes # (A) 0.9 k/uL (0-1.0); Monocytes % (A) 10 %; Neutrophils # (A) 5.7 k/uL (1.3-7.7); Neutrophils % (A) 62 %; Platelet Count 298 k/uL (150-450); Poikilocytosis Slight; RBC 4.18 m/uL (4.30-5.90); RDW 20.7 % (11.5-15.5); WBC 9.2 k/uL (3.8-10.6)
[2018-10-26 11:01] LABS: ALT 30 U/L (21-72); AST 21 U/L (17-59); Albumin 4.1 g/dL (3.5-5.0); Alkaline Phosphatase 531 U/L (38-126); Anion Gap 7 mmol/L; Blood Urea Nitrogen 20 mg/dL (9-20); Calcium 9.5 mg/dL (8.4-10.2); Carbon Dioxide 25 mmol/L (22-30); Chloride 110 mmol/L (98-107); Glucose 118 mg/dL (74-99); Magnesium 1.7 mg/dL (1.6-2.3); Potassium 4.6 mmol/L (3.5-5.1); Sodium 142 mmol/L (137-145); Total Bilirubin 0.9 mg/dL (0.2-1.3); Total Protein 6.5 g/dL (6.3-8.2)
[2018-10-26 11:24] LABS: Creatine Kinase MB 2.6 ng/mL (0.0-2.4)
--- NOTE | 2018-10-26 12:16 | US ---
EXAMINATION TYPE: US venous doppler duplex LE DATE OF EXAM: 10/26/2018 11:06 AM COMPARISON: US September 15, 2018 bilateral CLINICAL HISTORY: Pain. Pt states bilateral calf pain/ No known prior DVT SIDE PERFORMED: Bilateral TECHNIQUE: The lower extremity deep venous system is examined utilizing real time linear array sonog rajesh with graded compression, doppler sonography and color-flow sonography. VESSELS IMAGED: External Iliac Vein (EIV) Common Femoral Vein Deep Femoral Vein Greater Saphenous Vein * Femoral Vein Popliteal Vein Small Saphenous Vein * Proximal Calf Veins (* superficial vessels) Right Leg: Negative for DVT Left Leg: Negative for DVT Grayscale, color doppler, spectral doppler imaging performed of the deep veins of the bilateral lower extremities. There is normal flow, compressibility, vascular waveforms. IMPRESSION: No ultrasound evidence for acute DVT in either lower extremity.
[2018-10-26] MEDS: MAGNESIUM SULFATE-D5W PMX 1 GM in DEXTROSE/WATER 1 100ML.BAG IVPB ONE (12:44)
[2018-10-26] MEDS: HYDROmorphone 1 MG/ML 1 ML SYRINGE IVP STA (12:55)
[2018-10-26] MEDS: SODIUM CHLORIDE 0.9% 500 ML 500 ML IV STA (12:57)
[2018-10-26 14:06] VITALS: BP 145/72; PULSE 61; RESP 16; TEMP 97.8
== END 2018-10-26 14:05 | disposition home or self-care (01) ==
LOC: EC 09:50
DX: E11.42 Type 2 diabetes mellitus with diabetic polyneuropathy (principal); E86.0 Dehydration; E83.42 Hypomagnesemia; M79.605 Pain in left leg; M79.604 Pain in right leg; K21.9 Gastro-esophageal reflux disease without esophagitis; I10 Essential (primary) hypertension; Z85.3 Personal history of malignant neoplasm of breast; Z85.828 Personal history of other malignant neoplasm of skin; F41.9 Anxiety disorder, unspecified; Z87.891 Personal history of nicotine dependence; Z79.82 Long term (current) use of aspirin; Z79.4 Long term (current) use of insulin; Z79.899 Other long term (current) drug therapy; Z88.0 Allergy status to penicillin; Z88.2 Allergy status to sulfonamides; Z88.1 Allergy status to other antibiotic agents; Z88.6 Allergy status to analgesic agent; Z88.8 Allergy status to other drugs, medicaments and biological substances; Z95.818 Presence of other cardiac implants and grafts; Z90.49 Acquired absence of other specified parts of digestive tract
CPT/HCPCS: 36415; 85379; 80053; 82550; 82553; 83735; 85025; 93970; 99284; 96365; 96375 ×2; 96361 ×2; J3010; J1170; J3475

== ENCOUNTER → 2018-11-20 | Outpatient (CLI) | payer MEDICARE ==
[2018-11-20 17:01] LABS: Albumin 4.7 g/dL (3.80-4.90); Albumin/Globulin Ratio 2.47 (1.60-3.17); Anion Gap 8.6 mmol/L (4.00-12.00); Calcium 9.4 mg/dL (8.7-10.3); Carbon Dioxide 28.4 mmol/L (21.6-31.8); Globulin 1.9 g/dL (1.6-3.3); LDL Cholesterol,Calculated 66.8 mg/dL (0.0-131.0); Potassium 4.1 mmol/L (3.5-5.5); Total Bilirubin 0.7 mg/dL (0.2-1.2); Total Protein 6.6 g/dL (6.2-8.2); VLDL Calculation 12.2 mg/dL (5.00-40.00)
[2018-11-20 17:03] LABS: T4, Free (Free Thyroxine) 1.2 ng/dL (0.80-1.80)
[2018-11-20 17:33] LABS: Hemoglobin A1C 6.6 % (4.0-6.0)
== END | disposition home or self-care (01) ==
LOC: LABWHC1 10:50
PROVIDERS: ATTEND Internal Medicine Endocrinology, Diabetes & Metabolism
DX: E11.9 Type 2 diabetes mellitus without complications (principal); E05.90 Thyrotoxicosis, unspecified without thyrotoxic crisis or storm
CPT/HCPCS: 36415; 80053; 80061; 82043; 82570; 83036; 84439; 84443; 84480

== ENCOUNTER 2019-01-15 10:29 | Emergency (ER) | payer MEDICARE ==
[2019-01-15 10:40] VITALS: TEMP 97.9
[2019-01-15] MEDS ORDERED: MORPHINE SULFATE 4 MG/ML SYRINGE IM STA (11:55)
[2019-01-15] MEDS ORDERED: CYCLOBENZAPRINE 10MG STARTER 3 TAB BTL PO STA (11:55)
[2019-01-15] MEDS ORDERED: KETOROLAC 30 MG/ML 1 ML VIAL IM STA (11:55)
[2019-01-15 12:20] VITALS: BP 178/85; PULSE 54; RESP 16
--- NOTE | 2019-01-15 12:43 | XR ---
Lumbar spine HISTORY: Low back pain 3 views of the lumbar spine Bone mineralization is reduced which could limit sensitivity. Lumbar vertebral bodies show preserved height and alignment. There is loss of disc height especially at L5-S1, L4-5, there is multilevel spo ndylosis. Sclerosis in the posterior elements is compatible with facet arthropathy. Vascular calcific ations noted in the aorta. IMPRESSION: Degenerative disc disease and facet arthropathy, osteopenia. Additional findings above.
--- NOTE | 2019-01-15 12:54 | ED ---
Back Pain HPI - General Chief Complaint: Back Pain/Injury Stated Complaint: Lower back pain Time Seen by Provider: 01/15/19 11:15 Source: patient, RN notes reviewed, old records reviewed Limitations: no limitations - History of Present Illness Initial Comments: 68-year-old male presents emergency department today complaints of r or back pain. He's had a history of chronic lumbar back pain. Patient states he's had no falls or trauma. Patient reports occasional his legs give out on him. He does follow Dr. Jackson. - Related Data Home Medications Medication Instructions Recorded Confirmed Temazepam [Restoril] 30 mg PO HS 03/05/15 01/15/19 Citalopram Hydrobromide [CeleXA] 40 mg PO DAILY 02/05/16 01/15/19 Morphine Sulfate Ir [MSIR] 15 mg PO BID PRN 02/05/16 01/15/19 Levocetirizine Dihydrochloride 5 mg PO HS 07/13/16 01/15/19 [Xyzal] Tamsulosin [Flomax] 0.4 mg PO HS 07/13/16 01/15/19 Hyoscyamine Sulfate [Levsin-Sl] 0.125 mg SL AC-TID PRN 08/04/16 01/15/19 metFORMIN HCL [Glucophage Xr] 500 mg PO BID 11/27/16 01/15/19 Aspirin EC [Ecotrin Low Dose] 81 mg PO QAM 12/22/16 01/15/19 Omeprazole 40 mg PO BID 12/22/16 01/15/19 ALPRAZolam [Xanax] 0.25 mg PO DAILY PRN 02/26/18 01/15/19 Ibuprofen [Motrin] 800 mg PO HS 02/26/18 01/15/19 Fluticasone Nasal [place] [Flonase 2 spr EA NOSTRIL BID 03/26/18 01/15/19 Nasal [place]] Insulin Glargine,Hum.rec.anlog See Protocol SQ DAILY PRN 03/26/18 01/15/19 [Ysabel Solostjenny] Diclofenac Sodium [Voltaren Gel] 1 applic TOPICAL TID PRN 07/21/18 01/15/19 Furosemide [Lasix] 20 mg PO DAILY PRN 10/26/18 01/15/19 Gabapentin [Neurontin] 300 mg PO DAILY PRN 10/26/18 01/15/19 Loratadine [Claritin] 10 mg PO DAILY PRN 01/15/19 01/15/19 Previous Rx's Medication Instructions Recorded Lisinopril [Zestril] 5 mg PO DAILY #30 tab 09/15/18 Magnesium 200 mg PO DAILY #15 tablet 10/26/18 Cyclobenzaprine [Flexeril] 10 mg PO TID #15 tab 01/15/19 Dexamethasone 0.75 mg PO DAILY #12 tab 01/15/19 Allergies Allergy/AdvReac Type Severity Reaction Status Date / Time cephalexin monohydrate Allergy Rash/Hives Verified 01/17/19 12:10 [From Keflex] clarithromycin [From Biaxin] Allergy Unknown Verified 01/17/19 12:10 gentamicin [Gentamicin] Allergy Unknown Verified 01/17/19 12:10 naproxen Allergy Unknown Verified 01/17/19 12:10 Penicillins Allergy Anaphylaxis Verified 01/17/19 12:10 Sulfa (Sulfonamide Allergy Rash/Hives Verified 01/17/19 12:10 Antibiotics) promethazine AdvReac Nausea & Verified 01/17/19 12:10 Vomiting Review of Systems ROS Statement: Those systems with pertinent positive or pertinent negative responses have been documented in the HPI. ROS Other: All systems not noted in ROS Statement are negative. Past Medical History Past Medical History: Cancer, Chest Pain / Angina, Diabetes Mellitus, GERD/Reflux, Hypertension, Prostate Disorder Additional Past Medical History / Comment(s): migraines, diverticulosis, kidney stones, neurpathy hands & feet, low BACK PAIN-sees Dr. 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 RIGHT BREAST BIOPSY, TOTAL LT KNEE ; LT FOOT , LARA INGUINAL HERNIA, PERCUTANEOUS NEPHROLITHOTOMY. BILATERAL hand surgery. , back procedure for nerve endings and cortisone injections at [facility], colonoscopy.ESOPHGEAL DILATION, eye sx Past Anesthesia/Blood Transfusion Reactions: Motion Sickness Additional Past Anesthesia/Blood Transfusion Reaction / Comment(s): NEVER HAD ANY BLOOD TRANSFUSIONS Past Psychological History: Anxiety Smoking Status: Former smoker Past Alcohol Use History: None Reported Past Drug Use History: None Reported - Past Family History Father Family Medical History: Cancer Mother Family Medical History: Liver Disease Additional Family Medical History / Comment(s): Mother had hepatitis. General Exam - General Exam Comments Initial Comments: 69 year old male, no distress. Limitations: no limitations General appearance: alert, in no apparent distress Head exam: Present: atraumatic, normocephalic, normal inspection Eye exam: Present: normal appearance, PERRL, EOMI. Absent: scleral icterus, conjunctival injection, periorbital swelling ENT exam: Present: normal exam, mucous membranes moist Neck exam: Present: normal inspection. Absent: tenderness, meningismus, lymphadenopathy Respiratory exam: Present: normal lung sounds bilaterally. Absent: respiratory distress, wheezes, rales, rhonchi, stridor Cardiovascular Exam: Present: regular rate, normal rhythm, normal heart sounds. Absent: systolic murmur, diastolic murmur, rubs, gallop, clicks GI/Abdominal exam: Present: soft, normal bowel sounds. Absent: distended, tenderness, guarding, rebound, rigid Extremities exam: Present: normal inspection, full ROM, normal capillary refill. Absent: tenderness, pedal edema, joint swelling, calf tenderness Back exam: Present: normal inspection (d) Neurological exam: Present: alert, oriented X3, CN II-XII intact Psychiatric exam: Present: normal affect, normal mood Skin exam: Present: warm, dry, intact, normal color. Absent: rash Course Vital Signs 01/15/19 01/15/19 10:38 12:19 Temperature 97.9 F Pulse Rate 68 54 L Respiratory 18 16 Rate Blood Pressure 173/82 178/85 O2 Sat by Pulse 95 96 Oximetry Medical Decision Making - Medical Decision Making Patient is a 69 year old male with acute exacerbation of chronic back pain, denies red flag symptoms. Patient reports radiculoapthy and states he follow with Dr. Jackson. Given IM steroid and toradol, patient already on pain medication by Dr. Jackson. Pt advised to start steriods for radiculopathy symptoms and PCP and ortho follow up. - Radiology Data Radiology results: report reviewed Diagnoses and has arthropathy. Evidence of osteopenia. Bone mineralization appears reduced his Coumadin some sensitivity. Lumbar vertebral operation preserved height and alignment. Loss of disc height L5-S1 L4-L5. Sclerosis in the posterior elements is compatible with facet arthropathy. Vascular calcifications noted in the aorta. Disposition Clinical Impression: Chronic back pain, Lumbar disc disease Disposition: HOME SELF-CARE Condition: Good Instructions (If sedation given, give patient instructions): Chronic Back Pain (ED) Additional Instructions: Patient has a follow-up with your primary care physician import specialist. Take the medications as prescribed. Return to emergency department if any alarming signs or symptoms occur. Prescriptions: Dexamethasone 0.75 mg PO DAILY #12 tab Cyclobenzaprine [Flexeril] 10 mg PO TID #15 tab Is patient prescribed a controlled substance at d/c from ED?: No Referrals: Siria Hastings MD [Primary Care Provider] - 1-2 days Time of Disposition: 12:52
== END 2019-01-15 13:06 | disposition home or self-care (01) ==
LOC: EC 10:29
DX: M51.86 Other intervertebral disc disorders, lumbar region (principal); M54.5 Low back pain; G89.29 Other chronic pain; E11.9 Type 2 diabetes mellitus without complications; K21.9 Gastro-esophageal reflux disease without esophagitis; I10 Essential (primary) hypertension; N42.9 Disorder of prostate, unspecified; Z85.3 Personal history of malignant neoplasm of breast; F41.9 Anxiety disorder, unspecified; Z87.891 Personal history of nicotine dependence; Z79.84 Long term (current) use of oral hypoglycemic drugs; Z79.82 Long term (current) use of aspirin; Z79.1 Long term (current) use of non-steroidal anti-inflammatories (NSAID); Z79.899 Other long term (current) drug therapy; Z88.0 Allergy status to penicillin; Z88.1 Allergy status to other antibiotic agents; Z88.2 Allergy status to sulfonamides; Z88.8 Allergy status to other drugs, medicaments and biological substances; Z88.6 Allergy status to analgesic agent; Z95.818 Presence of other cardiac implants and grafts
CPT/HCPCS: 72100; 99284; 96372 ×2; J2270; J1885

== ENCOUNTER 2019-01-17 12:07 | Emergency (ER) | payer MEDICARE ==
[2019-01-17 12:11] VITALS: BP 167/73; PULSE 57; RESP 20; TEMP 97.7
[2019-01-17] MEDS ORDERED: KETOROLAC 60 MG/2 ML VIAL IM STA (13:39)
--- NOTE | 2019-01-17 13:45 | ED ---
General Adult HPI - General Chief complaint: Back Pain/Injury Stated complaint: Back Pain Time Seen by Provider: 01/17/19 12:19 Source: patient, RN notes reviewed Mode of arrival: ambulatory Limitations: no limitations - History of Present Illness Initial comments: Patient is a pleasant [age]-year-old male presenting to the emergency Department with complaints of back discomfort. Patient was in the emergency department 2 days ago with similar complaints. Patient does admit to having chronic back pain. Patient states he does wear his brace and his legs do frequently go out on him. Patient states this continues to be a problem for him. Patient denies any weakness. No incontinence or retention of bowel or bladder products. Patient does see a pain specialist as well as a back doctor. Patient has appointment set up for next week for both of them. Patient did call his primary care physician who stated he could come to the emergency department. No fevers. - Related Data Home Medications Medication Instructions Recorded Confirmed Temazepam [Restoril] 30 mg PO HS 03/05/15 01/15/19 Citalopram Hydrobromide [CeleXA] 40 mg PO DAILY 02/05/16 01/15/19 Morphine Sulfate Ir [MSIR] 15 mg PO BID PRN 02/05/16 01/15/19 Levocetirizine Dihydrochloride 5 mg PO HS 07/13/16 01/15/19 [Xyzal] Tamsulosin [Flomax] 0.4 mg PO HS 07/13/16 01/15/19 Hyoscyamine Sulfate [Levsin-Sl] 0.125 mg SL AC-TID PRN 08/04/16 01/15/19 metFORMIN HCL [Glucophage Xr] 500 mg PO BID 11/27/16 01/15/19 Aspirin EC [Ecotrin Low Dose] 81 mg PO QAM 12/22/16 01/15/19 Omeprazole 40 mg PO BID 12/22/16 01/15/19 ALPRAZolam [Xanax] 0.25 mg PO DAILY PRN 02/26/18 01/15/19 Ibuprofen [Motrin] 800 mg PO HS 02/26/18 01/15/19 Fluticasone Nasal [place] [Flonase 2 spr EA NOSTRIL BID 03/26/18 01/15/19 Nasal [place]] Insulin Glargine,Hum.rec.anlog See Protocol SQ DAILY PRN 03/26/18 01/15/19 [Ysabel Morales] Diclofenac Sodium [Voltaren Gel] 1 applic TOPICAL TID PRN 07/21/18 01/15/19 Furosemide [Lasix] 20 mg PO DAILY PRN 10/26/18 01/15/19 Gabapentin [Neurontin] 300 mg PO DAILY PRN 10/26/18 01/15/19 Loratadine [Claritin] 10 mg PO DAILY PRN 01/15/19 01/15/19 Previous Rx's Medication Instructions Recorded Lisinopril [Zestril] 5 mg PO DAILY #30 tab 09/15/18 Magnesium 200 mg PO DAILY #15 tablet 10/26/18 Cyclobenzaprine [Flexeril] 10 mg PO TID #15 tab 01/15/19 Dexamethasone 0.75 mg PO DAILY #12 tab 01/15/19 Allergies Allergy/AdvReac Type Severity Reaction Status Date / Time cephalexin monohydrate Allergy Rash/Hives Verified 01/17/19 12:10 [From Keflex] clarithromycin [From Biaxin] Allergy Unknown Verified 01/17/19 12:10 gentamicin [Gentamicin] Allergy Unknown Verified 01/17/19 12:10 naproxen Allergy Unknown Verified 01/17/19 12:10 Penicillins Allergy Anaphylaxis Verified 01/17/19 12:10 Sulfa (Sulfonamide Allergy Rash/Hives Verified 01/17/19 12:10 Antibiotics) promethazine AdvReac Nausea & Verified 01/17/19 12:10 Vomiting Review of Systems ROS Statement: Those systems with pertinent positive or pertinent negative responses have been documented in the HPI. ROS Other: All systems not noted in ROS Statement are negative. Constitutional: Denies: fever Eyes: Denies: eye pain ENT: Denies: ear pain Respiratory: Denies: cough Cardiovascular: Denies: chest pain Endocrine: Denies: fatigue Gastrointestinal: Denies: abdominal pain Genitourinary: Denies: dysuria Musculoskeletal: Reports: as per HPI, back pain Skin: Denies: rash Neurological: Denies: weakness Past Medical History Past Medical History: Cancer, Chest Pain / Angina, Diabetes Mellitus, GERD/Reflux, Hypertension, Prostate Disorder Additional Past Medical History / Comment(s): migraines, diverticulosis, kidney stones, neurpathy hands & feet, low BACK PAIN-sees Dr. 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 RIGHT BREAST BIOPSY, TOTAL LT KNEE ; LT FOOT , LARA INGUINAL HERNIA, PERCUTANEOUS NEPHROLITHOTOMY. BILATERAL hand surgery. , back procedure for nerve endings and cortisone injections at [facility], colonoscopy.ESOPHGEAL DILATION, eye sx Past Anesthesia/Blood Transfusion Reactions: Motion Sickness Additional Past Anesthesia/Blood Transfusion Reaction / Comment(s): NEVER HAD ANY BLOOD TRANSFUSIONS Past Psychological History: Anxiety Smoking Status: Former smoker Past Alcohol Use History: None Reported Past Drug Use History: None Reported - Past Family History Father Family Medical History: Cancer Mother Family Medical History: Liver Disease Additional Family Medical History / Comment(s): Mother had hepatitis. General Exam Limitations: no limitations General appearance: alert, in no apparent distress Head exam: Present: atraumatic Eye exam: Present: normal appearance Neck exam: Present: normal inspection Respiratory exam: Present: normal lung sounds bilaterally Cardiovascular Exam: Present: regular rate, normal rhythm Expanded Peripheral pulses: 2+: Dorsalis Pedis (R), Dorsalis Pedis (L) GI/Abdominal exam: Present: soft. Absent: distended, tenderness Extremities exam: Present: normal inspection, other (Straight leg raise positive on the right at 35.). Absent: tenderness, pedal edema, calf tenderness Back exam: Present: normal inspection. Absent: tenderness Neurological exam: Present: alert. Absent: motor sensory deficit Expanded Sensory exam: Lower Extremity Light Touch: Normal Motor strength exam: RLE: 5, LLE: 5 Psychiatric exam: Present: normal affect, normal mood Skin exam: Present: normal color Course Vital Signs 01/17/19 12:09 Temperature 97.7 F Pulse Rate 57 L Respiratory 20 Rate Blood Pressure 167/73 O2 Sat by Pulse 99 Oximetry Medical Decision Making - Medical Decision Making Case was discussed with Dr. conley who is familiar with this patient. She is okay with a dose of Toradol and discharged for follow-up. Disposition Clinical Impression: Chronic lower back pain Disposition: HOME SELF-CARE Condition: Stable Instructions (If sedation given, give patient instructions): Chronic Back Pain (ED) Additional Instructions: Please follow-up with your primary care physician as well as her back doctor and pain doctor in the next couple days for recheck. Return for weakness, loss of control of bowel or bladder, worsening symptoms or other concerns. Is patient prescribed a controlled substance at d/c from ED?: No Referrals: Siria Hastings MD [Primary Care Provider] - 1-2 days Time of Disposition: 13:45
== END 2019-01-17 14:22 | disposition home or self-care (01) ==
LOC: EC 12:07
DX: G89.29 Other chronic pain (principal); M54.5 Low back pain; E11.9 Type 2 diabetes mellitus without complications; K21.9 Gastro-esophageal reflux disease without esophagitis; I10 Essential (primary) hypertension; N42.9 Disorder of prostate, unspecified; Z87.891 Personal history of nicotine dependence; Z88.0 Allergy status to penicillin; Z88.1 Allergy status to other antibiotic agents; Z88.2 Allergy status to sulfonamides; Z88.6 Allergy status to analgesic agent; Z88.8 Allergy status to other drugs, medicaments and biological substances; Z79.1 Long term (current) use of non-steroidal anti-inflammatories (NSAID); Z79.51 Long term (current) use of inhaled steroids; Z79.82 Long term (current) use of aspirin; Z79.84 Long term (current) use of oral hypoglycemic drugs; Z79.899 Other long term (current) drug therapy; Z85.840 Personal history of malignant neoplasm of eye; Z85.3 Personal history of malignant neoplasm of breast; Z98.890 Other specified postprocedural states; Z95.818 Presence of other cardiac implants and grafts
CPT/HCPCS: 99283

== ENCOUNTER 2019-01-31 10:11 | Emergency (ER) | payer MEDICARE ==
[2019-01-31 10:26] VITALS: PULSE 70
--- NOTE | 2019-01-31 11:36 | ED ---
Extremity Problem HPI - General Chief complaint: Extremity Problem,Nontraumatic Stated complaint: bilat leg swelling Time Seen by Provider: 01/31/19 10:48 Source: patient, RN notes reviewed Mode of arrival: ambulatory Limitations: no limitations - History of Present Illness Initial comments: This is a 69-year-old male who presents with complaints of lower extremity edema is Somewhat Better since It Started Last Night. He was Seen by His Healthcare Provider Who Was Concerned about DVTs she denies any chest pain fevers chills nausea vomiting sweats he does have chronic back pain from a lower lumbar disc issue. No palpitations no other complaints this time. MD Complaint: extremity swelling - Related Data Home Medications Medication Instructions Recorded Confirmed Temazepam [Restoril] 30 mg PO HS 03/05/15 01/31/19 Citalopram Hydrobromide [CeleXA] 40 mg PO DAILY 02/05/16 01/31/19 Morphine Sulfate Ir [MSIR] 15 mg PO BID PRN 02/05/16 01/31/19 Levocetirizine Dihydrochloride 5 mg PO HS 07/13/16 01/31/19 [Xyzal] Tamsulosin [Flomax] 0.4 mg PO HS 07/13/16 01/31/19 Hyoscyamine Sulfate [Levsin-Sl] 0.125 mg SL AC-TID PRN 08/04/16 01/31/19 metFORMIN HCL [Glucophage Xr] 500 mg PO BID 11/27/16 01/31/19 Aspirin EC [Ecotrin Low Dose] 81 mg PO QAM 12/22/16 01/31/19 Omeprazole 40 mg PO BID 12/22/16 01/31/19 ALPRAZolam [Xanax] 0.25 mg PO DAILY PRN 02/26/18 01/31/19 Ibuprofen [Motrin] 800 mg PO HS 02/26/18 01/31/19 Fluticasone Nasal [place] [Flonase 2 spr EA NOSTRIL BID 03/26/18 01/31/19 Nasal [place]] Insulin Glargine,Hum.rec.anlog See Protocol SQ DAILY PRN 03/26/18 01/31/19 [Toureid Solostar] Diclofenac Sodium [Voltaren Gel] 1 applic TOPICAL TID PRN 07/21/18 01/31/19 Furosemide [Lasix] 20 mg PO DAILY PRN 10/26/18 01/31/19 Gabapentin [Neurontin] 300 mg PO DAILY PRN 10/26/18 01/31/19 Loratadine [Claritin] 10 mg PO DAILY PRN 01/15/19 01/31/19 Previous Rx's Medication Instructions Recorded Lisinopril [Zestril] 5 mg PO DAILY #30 tab 09/15/18 Allergies Allergy/AdvReac Type Severity Reaction Status Date / Time cephalexin monohydrate Allergy Rash/Hives Verified 01/31/19 10:34 [From Keflex] clarithromycin [From Biaxin] Allergy Unknown Verified 01/31/19 10:34 gentamicin [Gentamicin] Allergy Unknown Verified 01/31/19 10:34 naproxen Allergy Unknown Verified 01/31/19 10:34 Penicillins Allergy Anaphylaxis Verified 01/31/19 10:34 Sulfa (Sulfonamide Allergy Rash/Hives Verified 01/31/19 10:34 Antibiotics) promethazine AdvReac Nausea & Verified 01/31/19 10:34 Vomiting Review of Systems ROS Statement: Those systems with pertinent positive or pertinent negative responses have been documented in the HPI. ROS Other: All systems not noted in ROS Statement are negative. Past Medical History Past Medical History: Cancer, Chest Pain / Angina, Diabetes Mellitus, GERD/Reflux, Hypertension, Prostate Disorder Additional Past Medical History / Comment(s): migraines, diverticulosis, kidney stones, neurpathy hands & feet, low BACK PAIN-sees Dr. 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 RIGHT BREAST BIOPSY, TOTAL LT KNEE ; LT FOOT , LARA INGUINAL HERNIA, PERCUTANEOUS NEPHROLITHOTOMY. BILATERAL hand surgery. , back procedure for nerve endings and [facility]one injections at [facility], colonoscopy.ESOPHGEAL DILATION, eye sx Past Anesthesia/Blood Transfusion Reactions: Motion Sickness Additional Past Anesthesia/Blood Transfusion Reaction / Comment(s): NEVER HAD ANY BLOOD TRANSFUSIONS Past Psychological History: Anxiety Smoking Status: Former smoker Past Alcohol Use History: None Reported Past Drug Use History: None Reported - Past Family History Father Family Medical History: Cancer Mother Family Medical History: Liver Disease Additional Family Medical History / Comment(s): Mother had hepatitis. General Exam - General Exam Comments Initial Comments: This is a well-developed well-nourished awake alert oriented 3 male Limitations: no limitations General appearance: alert, in no apparent distress Head exam: Present: atraumatic, normocephalic, normal inspection Eye exam: Present: normal appearance, PERRL, EOMI. Absent: scleral icterus, conjunctival injection, periorbital swelling ENT exam: Present: normal exam, mucous membranes moist Neck exam: Present: normal inspection. Absent: tenderness, meningismus, lymphadenopathy Respiratory exam: Present: normal lung sounds bilaterally, other (Some basilar crackles which improved with deep breathing and cough.). Absent: respiratory distress, wheezes, rales, rhonchi, stridor Cardiovascular Exam: Present: regular rate, normal rhythm, normal heart sounds. Absent: systolic murmur, diastolic murmur, rubs, gallop, clicks GI/Abdominal exam: Present: soft, normal bowel sounds. Absent: distended, tenderness, guarding, rebound, rigid Extremities exam: Present: normal inspection, full ROM, normal capillary refill, pedal edema (Trace pedal edema bilaterally tenderness at this time no Homans sign at this time). Absent: tenderness, joint swelling, calf tenderness Back exam: Present: normal inspection Neurological exam: Present: alert, oriented X3, CN II-XII intact Psychiatric exam: Present: normal affect, normal mood Skin exam: Present: warm, dry, intact, normal color. Absent: rash Course Vital Signs 01/31/19 10:23 Temperature 98 F Pulse Rate 70 Respiratory 18 Rate Blood Pressure 149/78 O2 Sat by Pulse 96 Oximetry Medical Decision Making - Medical Decision Making I did discuss findings with the patient will be discharge is follow-up with his doctor and return when necessary - Lab Data Result diagrams: 01/31/19 11:47 01/31/19 11:47 Lab Results 01/31/19 01/31/19 01/31/19 Range/Units 11:47 11:47 11:47 WBC 8.2 (3.8-10.6) k/uL RBC 4.34 (4.30-5.90) m/uL Hgb 13.4 (13.0-17.5) gm/dL Hct 41.2 (39.0-53.0) % MCV 94.9 (80.0-100.0) fL MCH 30.8 (25.0-35.0) pg MCHC 32.4 (31.0-37.0) g/dL RDW 21.0 H (11.5-15.5) % Plt Count 318 (150-450) k/uL Neutrophils % (Manual) 53 % Band Neutrophils % 3 % Lymphocytes % (Manual) 33 % Monocytes % (Manual) 10 % Eosinophils % (Manual) 1 % Neutrophils # (Manual) 4.50 (1.3-7.7) k/uL Lymphocytes # (Manual) 2.71 (1.0-4.8) k/uL Monocytes # (Manual) 0.82 (0-1.0) k/uL Eosinophils # (Manual) 0.08 (0-0.7) k/uL Nucleated RBCs 0 (0-0) /100 WBC Manual Slide Review Performed Hypochromasia Slight Poikilocytosis Slight Anisocytosis Moderate Macrocytosis Slight Ovalocytes Present D-Dimer (<0.60) mg/L FEU Sodium (137-145) mmol/L Potassium (3.5-5.1) mmol/L Chloride (98-107) mmol/L Carbon Dioxide (22-30) mmol/L Anion Gap mmol/L BUN (9-20) mg/dL Creatinine (0.66-1.25) mg/dL Est GFR (CKD-EPI)AfAm (>60 ml/min/1.73 sqM) Est GFR (CKD-EPI)NonAf (>60 ml/min/1.73 sqM) Glucose (74-99) mg/dL Calcium (8.4-10.2) mg/dL Magnesium (1.6-2.3) mg/dL Total Bilirubin (0.2-1.3) mg/dL AST (17-59) U/L ALT (21-72) U/L Alkaline Phosphatase (38-126) U/L Total Creatine Kinase 136 (55-170) U/L CK-MB (CK-2) 3.7 H (0.0-2.4) ng/mL CK-MB (CK-2) Rel Index 2.7 Troponin I <0.012 (0.000-0.034) ng/mL NT-Pro-B Natriuret Pep 32 pg/mL Total Protein (6.3-8.2) g/dL Albumin (3.5-5.0) g/dL 01/31/19 01/31/19 Range/Units 11:47 11:47 WBC (3.8-10.6) k/uL RBC (4.30-5.90) m/uL Hgb (13.0-17.5) gm/dL Hct (39.0-53.0) % MCV (80.0-100.0) fL MCH (25.0-35.0) pg MCHC (31.0-37.0) g/dL RDW (11.5-15.5) % Plt Count (150-450) k/uL Neutrophils % (Manual) % Band Neutrophils % % Lymphocytes % (Manual) % Monocytes % (Manual) % Eosinophils % (Manual) % Neutrophils # (Manual) (1.3-7.7) k/uL Lymphocytes # (Manual) (1.0-4.8) k/uL Monocytes # (Manual) (0-1.0) k/uL Eosinophils # (Manual) (0-0.7) k/uL Nucleated RBCs (0-0) /100 WBC Manual Slide Review Hypochromasia Poikilocytosis Anisocytosis Macrocytosis Ovalocytes D-Dimer 0.68 H (<0.60) mg/L FEU Sodium 140 (137-145) mmol/L Potassium 4.8 (3.5-5.1) mmol/L Chloride 107 (98-107) mmol/L Carbon Dioxide 25 (22-30) mmol/L Anion Gap 8 mmol/L BUN 24 H (9-20) mg/dL Creatinine 0.74 (0.66-1.25) mg/dL Est GFR (CKD-EPI)AfAm >90 (>60 ml/min/1.73 sqM) Est GFR (CKD-EPI)NonAf >90 (>60 ml/min/1.73 sqM) Glucose 109 H (74-99) mg/dL Calcium 10.0 (8.4-10.2) mg/dL Magnesium 1.7 (1.6-2.3) mg/dL Total Bilirubin 0.8 (0.2-1.3) mg/dL AST 23 (17-59) U/L ALT 37 (21-72) U/L Alkaline Phosphatase 527 H (38-126) U/L Total Creatine Kinase (55-170) U/L CK-MB (CK-2) (0.0-2.4) ng/mL CK-MB (CK-2) Rel Index Troponin I (0.000-0.034) ng/mL NT-Pro-B Natriuret Pep pg/mL Total Protein 7.1 (6.3-8.2) g/dL Albumin 4.6 (3.5-5.0) g/dL - Radiology Data Radiology results: report reviewed (I did review the imaging and reports no acute findings are noted. No evidence of DVT), image reviewed Disposition Clinical Impression: Peripheral edema, Feared condition not demonstrated Disposition: HOME SELF-CARE Condition: Good Instructions (If sedation given, give patient instructions): Edema (ED) Is patient prescribed a controlled substance at d/c from ED?: No Referrals: Siria Hastings MD [Primary Care Provider] - 1-2 days
[2019-01-31] MEDS ORDERED: fentaNYL (PF) 50 MCG/ML 2 ML AMP IV STA (11:56)
[2019-01-31 12:10] LABS: ALT 37 U/L (21-72); AST 23 U/L (17-59); Albumin 4.6 g/dL (3.5-5.0); Alkaline Phosphatase 527 U/L (38-126); Anion Gap 8 mmol/L; Blood Urea Nitrogen 24 mg/dL (9-20); Carbon Dioxide 25 mmol/L (22-30); Chloride 107 mmol/L (98-107); Glucose 109 mg/dL (74-99); Magnesium 1.7 mg/dL (1.6-2.3); Potassium 4.8 mmol/L (3.5-5.1); Sodium 140 mmol/L (137-145); Total Bilirubin 0.8 mg/dL (0.2-1.3); Total Protein 7.1 g/dL (6.3-8.2)
[2019-01-31 12:15] LABS: Anisocytosis Moderate; HCT 41.2 % (39.0-53.0); HGB 13.4 gm/dL (13.0-17.5); Hypochromasia Slight; MCH 30.8 pg (25.0-35.0); MCHC 32.4 g/dL (31.0-37.0); MCV 94.9 fL (80.0-100.0); Macrocytosis Slight; Mean Platelet Volume 9.1; Platelet Count 318 k/uL (150-450); Poikilocytosis Slight; RBC 4.34 m/uL (4.30-5.90); WBC 8.2 k/uL (3.8-10.6)
[2019-01-31 12:42] LABS: Creatine Kinase 136 U/L (55-170)
[2019-01-31 12:43] LABS: Band Neutrophils % 3 %; Eosinophils # (M) 0.08 k/uL (0-0.7); Lymphocytes # (M) 2.71 k/uL (1.0-4.8); Monocytes # (M) 0.82 k/uL (0-1.0); Neutrophils % (M) 53 %; Nucleated Red Blood Cells 0 /100 WBC (0-0); Total Cells Counted 100
[2019-01-31 12:44] LABS: Ovalocytes Present
[2019-01-31 12:54] LABS: Creatine Kinase MB 3.7 ng/mL (0.0-2.4); Troponin I <0.012 ng/mL (0.000-0.034)
--- NOTE | 2019-01-31 13:08 | US ---
EXAMINATION TYPE: US venous doppler duplex LE DATE OF EXAM: 01/31/2019 1:02 PM COMPARISON: NONE CLINICAL HISTORY: Pain. Patient states having leg swelling yesterday with redness. No hx of blood cl ots. Baby aspirin SIDE PERFORMED: Bilateral TECHNIQUE: The lower extremity deep venous system is examined utilizing real time linear array sonog rajesh with graded compression, doppler sonography and color-flow sonography. VESSELS IMAGED: External Iliac Vein (EIV) Common Femoral Vein Deep Femoral Vein Greater Saphenous Vein * Femoral Vein Popliteal Vein Small Saphenous Vein * Proximal Calf Veins (* superficial vessels) Right Leg: Negative for DVT Left Leg: Negative for DVT IMPRESSION: 1. No diagnostic evidence of DVT as visualized.
[2019-01-31 14:16] VITALS: BP 139/81; RESP 19; TEMP 97.8
== END 2019-01-31 14:16 | disposition home or self-care (01) ==
LOC: EC 10:11
DX: R60.0 Localized edema (principal); G89.29 Other chronic pain; M54.9 Dorsalgia, unspecified; E11.40 Type 2 diabetes mellitus with diabetic neuropathy, unspecified; K21.9 Gastro-esophageal reflux disease without esophagitis; I10 Essential (primary) hypertension; N42.9 Disorder of prostate, unspecified; G43.909 Migraine, unspecified, not intractable, without status migrainosus; F41.9 Anxiety disorder, unspecified; Z85.3 Personal history of malignant neoplasm of breast; Z85.89 Personal history of malignant neoplasm of other organs and systems; Z95.818 Presence of other cardiac implants and grafts; Z87.891 Personal history of nicotine dependence; Z79.82 Long term (current) use of aspirin; Z79.84 Long term (current) use of oral hypoglycemic drugs; Z79.1 Long term (current) use of non-steroidal anti-inflammatories (NSAID); Z79.899 Other long term (current) drug therapy; Z88.1 Allergy status to other antibiotic agents; Z88.6 Allergy status to analgesic agent; Z88.0 Allergy status to penicillin; Z88.2 Allergy status to sulfonamides; Z88.8 Allergy status to other drugs, medicaments and biological substances
CPT/HCPCS: 36415; 85379; 83880; 80053; 82550; 82553; 83735; 84484; 85025; 93970; 99284; 96374; J3010

== ENCOUNTER 2019-03-24 11:57 | Emergency (ER) | payer MEDICARE ==
[2019-03-24] MEDS ORDERED: SODIUM CHLORIDE 0.9% 1,000 ML IV STA (12:22)
[2019-03-24 13:13] LABS: Anisocytosis Moderate; Basophils # (A) 0.2 k/uL (0-0.2); Basophils % (A) 1 %; Eosinophils # (A) 0.2 k/uL (0-0.7); Eosinophils % (A) 2 %; HCT 42.6 % (39.0-53.0); HGB 13.5 gm/dL (13.0-17.5); Hypochromasia Slight; Lymphocytes # (A) 2.9 k/uL (1.0-4.8); Lymphocytes % (A) 24 %; MCH 30.3 pg (25.0-35.0); MCHC 31.7 g/dL (31.0-37.0); MCV 95.7 fL (80.0-100.0); Macrocytosis Slight; Mean Platelet Volume 9.2; Monocytes # (A) 1.2 k/uL (0-1.0); Monocytes % (A) 10 %; Neutrophils # (A) 7.3 k/uL (1.3-7.7); Neutrophils % (A) 60 %; Platelet Count 304 k/uL (150-450); Poikilocytosis Slight; RBC 4.45 m/uL (4.30-5.90); RDW 21.7 % (11.5-15.5); WBC 12.1 k/uL (3.8-10.6)
[2019-03-24] MEDS ORDERED: KETOROLAC 30 MG/ML 1 ML VIAL IVP STA (13:28)
[2019-03-24 13:30] LABS: ALT 35 U/L (21-72); AST 26 U/L (17-59); African American GFR (CKD) >90 (>60 ml/min/1.73 sqM); Albumin 4.5 g/dL (3.5-5.0); Alkaline Phosphatase 505 U/L (38-126); Amylase 56 U/L (30-110); Anion Gap 9 mmol/L; Blood Urea Nitrogen 24 mg/dL (9-20); Calcium 9.5 mg/dL (8.4-10.2); Carbon Dioxide 25 mmol/L (22-30); Chloride 104 mmol/L (98-107); Glucose 100 mg/dL (74-99); Lipase 78 U/L (23-300); Potassium 4.8 mmol/L (3.5-5.1); Sodium 138 mmol/L (137-145); Total Bilirubin 1.1 mg/dL (0.2-1.3); Total Protein 6.9 g/dL (6.3-8.2)
--- NOTE | 2019-03-24 13:37 | ED ---
Abdominal Pain HPI - General Chief Complaint: Abdominal Pain Stated Complaint: poss kidney stone Time Seen by Provider: 03/24/19 12:22 Source: patient, RN notes reviewed Mode of arrival: ambulatory Limitations: no limitations - History of Present Illness Initial Comments: This a 69-year-old male presents emergency Department with chief complaint of right flank pain. Patient is has been bothersome last couple days. Patient called PCP who advised him come emergency department. He has mild hesitancy of urination no dysuria no noted hematuria. Patient denies any fevers or chills denies any nausea vomiting diarrhea constipation. Patient states it feels like his prior kidney stones. Patient offers no other associated complaints - Related Data Home Medications Medication Instructions Recorded Confirmed Temazepam [Restoril] 30 mg PO HS 03/05/15 03/24/19 Citalopram Hydrobromide [CeleXA] 40 mg PO DAILY 02/05/16 03/24/19 Morphine Sulfate Ir [MSIR] 15 mg PO BID PRN 02/05/16 03/24/19 Levocetirizine Dihydrochloride 5 mg PO HS 07/13/16 03/24/19 [Xyzal] Tamsulosin [Flomax] 0.4 mg PO HS 07/13/16 03/24/19 Hyoscyamine Sulfate [Levsin-Sl] 0.125 mg SL AC-TID PRN 08/04/16 03/24/19 metFORMIN HCL [Glucophage Xr] 500 mg PO BID 11/27/16 03/24/19 Aspirin EC [Ecotrin Low Dose] 81 mg PO QAM 12/22/16 03/24/19 Omeprazole 40 mg PO BID 12/22/16 03/24/19 ALPRAZolam [Xanax] 0.25 mg PO DAILY PRN 02/26/18 03/24/19 Ibuprofen [Motrin] 800 mg PO HS 02/26/18 03/24/19 Fluticasone Nasal [place] [Flonase 2 spr EA NOSTRIL BID 03/26/18 03/24/19 Nasal [place]] Insulin Glargine,Hum.rec.anlog See Protocol SQ DAILY PRN 03/26/18 03/24/19 [Toureid Solostar] Diclofenac Sodium [Voltaren Gel] 1 applic TOPICAL TID PRN 07/21/18 03/24/19 Furosemide [Lasix] 20 mg PO DAILY PRN 10/26/18 03/24/19 Gabapentin [Neurontin] 300 mg PO DAILY PRN 10/26/18 03/24/19 Loratadine [Claritin] 10 mg PO DAILY PRN 01/15/19 03/24/19 Previous Rx's Medication Instructions Recorded Lisinopril [Zestril] 5 mg PO DAILY #30 tab 09/15/18 Allergies Allergy/AdvReac Type Severity Reaction Status Date / Time cephalexin monohydrate Allergy Rash/Hives Verified 03/24/19 13:25 [From Keflex] clarithromycin [From Biaxin] Allergy Unknown Verified 03/24/19 13:25 gentamicin [Gentamicin] Allergy Unknown Verified 03/24/19 13:25 naproxen Allergy Unknown Verified 03/24/19 13:25 Penicillins Allergy Anaphylaxis Verified 03/24/19 13:25 Sulfa (Sulfonamide Allergy Rash/Hives Verified 03/24/19 13:25 Antibiotics) promethazine AdvReac Nausea & Verified 03/24/19 13:25 Vomiting Review of Systems ROS Statement: Those systems with pertinent positive or pertinent negative responses have been documented in the HPI. ROS Other: All systems not noted in ROS Statement are negative. Past Medical History Past Medical History: Cancer, Chest Pain / Angina, Diabetes Mellitus, GERD/Reflux, Hypertension, Prostate Disorder Additional Past Medical History / Comment(s): migraines, diverticulosis, kidney stones, neurpathy hands & feet, low BACK PAIN-sees Dr. 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 RIGHT BREAST BIOPSY, TOTAL LT KNEE ; LT FOOT , LARA INGUINAL HERNIA, P ERCUTANEOUS NEPHROLITHOTOMY. BILATERAL hand surgery. , back procedure for nerve endings and [facility], colonoscopy.ESOPHGEAL DILATION, eye sx Past Anesthesia/Blood Transfusion Reactions: Motion Sickness Additional Past Anesthesia/Blood Transfusion Reaction / Comment(s): NEVER HAD ANY BLOOD TRANSFUSIONS Past Psychological History: Anxiety Smoking Status: Former smoker Past Alcohol Use History: None Reported Past Drug Use History: None Reported - Past Family History Father Family Medical History: Cancer Mother Family Medical History: Liver Disease Additional Family Medical History / Comment(s): Mother had hepatitis. General Exam Limitations: no limitations General appearance: alert, in no apparent distress Head exam: Present: atraumatic, normocephalic, normal inspection Neck exam: Present: normal inspection. Absent: tenderness, meningismus, lymphadenopathy Respiratory exam: Present: normal lung sounds bilaterally. Absent: respiratory distress, wheezes, rales, rhonchi, stridor Cardiovascular Exam: Present: regular rate, normal rhythm, normal heart sounds. Absent: systolic murmur, diastolic murmur, rubs, gallop, clicks GI/Abdominal exam: Present: soft, tenderness (Mild right-sided), normal bowel sounds. Absent: distended, guarding, rebound, rigid Back exam: Present: CVA tenderness (R) (Exaggerated pain). Absent: CVA tenderness (L) Neurological exam: Present: alert, oriented X3, CN II-XII intact Skin exam: Present: warm, dry, intact, normal color. Absent: rash Course Vital Signs 03/24/19 03/24/19 12:10 14:40 Temperature 98.4 F 97.8 F Pulse Rate 82 66 Respiratory 18 19 Rate Blood Pressure 117/66 121/72 O2 Sat by Pulse 96 96 Oximetry Medical Decision Making - Medical Decision Making 69-year-old male presented for right flank pain. Patient has known history of stones. Patient states pain is consistent is no localized tenderness at this time. Patient will be advised to follow-up with his PCP, urology has he seen in the past. Return parameters were discussed. - Lab Data Result diagrams: 03/24/19 12:43 03/24/19 12:43 Lab Results 03/24/19 03/24/19 03/24/19 Range/Units 12:43 12:43 13:25 WBC 12.1 H (3.8-10.6) k/uL RBC 4.45 (4.30-5.90) m/uL Hgb 13.5 (13.0-17.5) gm/dL Hct 42.6 (39.0-53.0) % MCV 95.7 (80.0-100.0) fL MCH 30.3 (25.0-35.0) pg MCHC 31.7 (31.0-37.0) g/dL RDW 21.7 H (11.5-15.5) % Plt Count 304 (150-450) k/uL Neutrophils % 60 % Lymphocytes % 24 % Monocytes % 10 % Eosinophils % 2 % Basophils % 1 % Neutrophils # 7.3 (1.3-7.7) k/uL Lymphocytes # 2.9 (1.0-4.8) k/uL Monocytes # 1.2 H (0-1.0) k/uL Eosinophils # 0.2 (0-0.7) k/uL Basophils # 0.2 (0-0.2) k/uL Hypochromasia Slight Poikilocytosis Slight Anisocytosis Moderate Macrocytosis Slight Sodium 138 (137-145) mmol/L Potassium 4.8 (3.5-5.1) mmol/L Chloride 104 (98-107) mmol/L Carbon Dioxide 25 (22-30) mmol/L Anion Gap 9 mmol/L BUN 24 H (9-20) mg/dL Creatinine 0.81 (0.66-1.25) mg/dL Est GFR (CKD-EPI)AfAm >90 (>60 ml/min/1.73 sqM) Est GFR (CKD-EPI)NonAf >90 (>60 ml/min/1.73 sqM) Glucose 100 H (74-99) mg/dL Calcium 9.5 (8.4-10.2) mg/dL Total Bilirubin 1.1 (0.2-1.3) mg/dL AST 26 (17-59) U/L ALT 35 (21-72) U/L Alkaline Phosphatase 505 H (38-126) U/L Total Protein 6.9 (6.3-8.2) g/dL Albumin 4.5 (3.5-5.0) g/dL Amylase 56 (30-110) U/L Lipase 78 (23-300) U/L Urine Color Yellow Urine Appearance Clear (Clear) Urine pH 5.0 (5.0-8.0) Ur Specific [place] 1.017 (1.001-1.035) Urine Protein Negative (Negative) Urine Glucose (UA) Negative (Negative) Urine Ketones Negative (Negative) Urine Blood Negative (Negative) Urine Nitrite Negative (Negative) Urine Bilirubin Negative (Negative) Urine Urobilinogen <2.0 (<2.0) mg/dL Ur Leukocyte Esterase Negative (Negative) Disposition Clinical Impression: Flank pain, Chronic pain Disposition: HOME SELF-CARE Condition: Stable Instructions (If sedation given, give patient instructions): Abdominal Pain (ED) Additional Instructions: Please return to the Emergency Department if symptoms worsen or any other concerns. Is patient prescribed a controlled substance at d/c from ED?: No Referrals: Siria Hastings MD [Primary Care Provider] - 1-2 days Time of Disposition: 14:48
--- NOTE | 2019-03-24 13:49 | XR ---
KUB HISTORY: Right-sided abdominal pain and difficulty voiding Frontal KUB and 2 images Correlation to prior exam 04/20/2018 Double-J stent has been removed in the interval on the left. Lung bases are clear. No pneumoperitoneu m or bowel obstruction is evident. Probable vascular calcifications are present. Bone mineralization is stable. IMPRESSION: Nonobstructive bowel gas pattern, follow-up as indicated.
[2019-03-24 14:21] LABS: Appearance,Urine Clear (Clear); Bilirubin,Urine Negative (Negative); Blood,Urine Negative (Negative); Color,Urine Yellow; Glucose,Urine (UA) Negative (Negative); Ketones,Urine Negative (Negative); Leukocyte Esterase,Urine Negative (Negative); Nitrite,Urine Negative (Negative); Protein,Urine Negative (Negative); Specific Gravity,Urine 1.017 (1.001-1.035); Urobilinogen,Urine <2.0 mg/dL (<2.0)
[2019-03-24 14:41] VITALS: BP 121/72; PULSE 66; RESP 19; TEMP 97.8
== END 2019-03-24 15:18 | disposition home or self-care (01) ==
LOC: EC 11:57
DX: R10.9 Unspecified abdominal pain (principal); G89.29 Other chronic pain; E11.40 Type 2 diabetes mellitus with diabetic neuropathy, unspecified; K21.9 Gastro-esophageal reflux disease without esophagitis; I10 Essential (primary) hypertension; N42.9 Disorder of prostate, unspecified; F41.9 Anxiety disorder, unspecified; Z85.3 Personal history of malignant neoplasm of breast; Z85.828 Personal history of other malignant neoplasm of skin; Z87.891 Personal history of nicotine dependence; Z79.82 Long term (current) use of aspirin; Z79.4 Long term (current) use of insulin; Z79.1 Long term (current) use of non-steroidal anti-inflammatories (NSAID); Z79.899 Other long term (current) drug therapy; Z88.0 Allergy status to penicillin; Z88.1 Allergy status to other antibiotic agents; Z88.2 Allergy status to sulfonamides; Z88.8 Allergy status to other drugs, medicaments and biological substances; Z90.49 Acquired absence of other specified parts of digestive tract; Z95.818 Presence of other cardiac implants and grafts
CPT/HCPCS: 36415; 80053; 82150; 83690; 85025; 81003; 74018; 99284; 96374; 96361 ×3; J1885

== ENCOUNTER 2019-05-02 05:45 | Day surgery (SDC) | payer MEDICARE ==
[2019-04-29 08:57] VITALS: BMI 26.9
[~2019-05-02 05:45] MED LIST: CLINDAMYCIN 900 MG in DEXTROSE 5% IN WATER 50 ML IVPB ONE; HEPARIN SODIUM,PORCINE 5,000 UNIT/ML 1 ML VIAL SQ ONE; LEVOFLOXACIN 500MG-D5W PMX 500 MG in DEXTROSE/WATER 1 100ML.BAG IVPB ONE
[2019-05-02] MEDS ORDERED: DEXAMETHASONE SOD PHOSPHATE 10 MG/ML 1 ML VIAL IV ONE (06:04)
[2019-05-02] MEDS ORDERED: MIDAZOLAM 2 MG/2 ML VIAL IV PRN (06:04)
[2019-05-02] MEDS ORDERED: ONDANSETRON 4 MG/2 ML VIAL IVP ONE (06:04)
[2019-05-02] MEDS ORDERED: LIDOCAINE 1% 20 ML VIAL (10MG/ML) FOR IV START INTRADERMA ONE ×2 (06:45)
[2019-05-02] MEDS: LACTATED RINGERS 1,000 ML IV SCH ×3 (06:45→12:16)
[2019-05-02 07:06] LABS: Glucose,Whole Blood 108 mg/dL (75-99)
[2019-05-02] MEDS ORDERED: fentaNYL (PF) 50 MCG/ML 2 ML AMP IV ONE (07:10)
[2019-05-02] MEDS ORDERED: BUPIVACAIN-EPI 0.25%-1:200,000 30 ML VIAL SQ ONE (07:33)
[2019-05-02] MEDS ORDERED: SUCCINYLCHOLINE CHLORIDE 100 MG/5 ML SYR IV ONE (07:58)
[2019-05-02] MEDS ORDERED: fentaNYL (PF) 50 MCG/ML 2 ML AMP ONE (07:58)
[2019-05-02] MEDS ORDERED: NEOSTIGMINE 1 MG/ML 10 ML VIAL ONE (07:58)
[2019-05-02] MEDS ORDERED: ROCURONIUM BROMIDE 10 MG/ML 10 ML VIAL IV ONE (07:58)
[2019-05-02] MEDS ORDERED: ePHEDrine SULFATE/0.9% NACL/PF 50 MG/5 ML SYRINGE IV ONE (07:58)
[2019-05-02] MEDS ORDERED: MIDAZOLAM 2 MG/2 ML VIAL ONE (07:58)
[2019-05-02] MEDS ORDERED: PROPOFOL 10 MG/ML 20 ML VIAL IV ONE (07:58)
[2019-05-02] MEDS ORDERED: LIDOCAINE 1% INJ 10MG/ML (20 ML MDV) ONE (07:58)
[2019-05-02] MEDS ORDERED: GLYCOPYRROLATE 0.2 MG/ML 2 ML VIAL ONE (07:58)
--- NOTE | 2019-05-02 08:21 | P.ANPRN ---
Procedure Note - Anesthesia - Nerve Block Performed Right Transversus Abdominis Single Time Out Performed: Yes Date of Procedure: 05/02/19 Location of Patient Procedure: PreOp Indication: Acute Post-Operative Pain Specifically requested for management of pain by DrReji: Juan Patel Sedation Type: Sedate with meaningful contact maintained Preparation: Sterile Prep Position: Supine Catheter: None Needle Types: Pajunk Needle Gauge: 20 Technique: Ultrasound Injectate: Other (see comment) (0.5% lidocaine/0.25% ropivacaine 30 mL) Adjunct: Epinephrine (see comment for dilution ratio) (1:200,000) Blood Aspirated: No Pain Paresthesia on Injection Noted: No Resistance on Injection: Normal Events: Uneventful and Well Tolerated
[2019-05-02] MEDS ORDERED: LACTATED RINGERS 1,000 ML IV ONE ×2 (09:05→10:18)
[2019-05-02] MEDS ORDERED: HYDROmorphone 1 MG/ML 1 ML SYRINGE IVP ONE ×2 (09:49→09:55)
[2019-05-02] MEDS: fentaNYL (PF) 50 MCG/ML 2 ML AMP IV PRN ×2 (10:15→11:29)
[2019-05-02] MEDS ORDERED: HYDROcodone/APAP 5-325MG 1 EACH TAB PO PRN (10:18)
[2019-05-02] MEDS ORDERED: ONDANSETRON 4 MG/2 ML VIAL IVP PRN (10:18)
[2019-05-02] MEDS ORDERED: NALOXONE 0.4 MG/ML 1 ML VIAL IV PRN (10:18)
[2019-05-02] MEDS ORDERED: KETOROLAC 30 MG/ML 1 ML VIAL IVP ONE (10:32)
[2019-05-02 11:04] LABS: Glucose,Whole Blood 145 mg/dL (75-99)
[2019-05-02] MEDS ORDERED: KETOROLAC 30 MG/ML 1 ML VIAL IVP SCH (12:00)
[2019-05-02] MEDS: HYDROmorphone 0.5 MG/0.5 ML SYRINGE IVP PRN ×4 (13:21→23:59)
[2019-05-02] MEDS ORDERED: ALPRAZolam 0.25 MG TAB PO PRN (13:48)
[2019-05-02] MEDS ORDERED: HYOSCYAMINE SULFATE 0.125 MG TAB PO PRN (13:48)
[2019-05-02] MEDS ORDERED: LORATADINE 10 MG TAB PO PRN (13:48)
[2019-05-02] MEDS ORDERED: GABAPENTIN 300 MG CAP PO PRN (13:48)
--- NOTE | 2019-05-02 13:48 | P.CONS ---
History of Present Illness - Reason for Consult Consult date: 05/02/19 Consult for medical management Requesting physician: Juan Patel - Chief Complaint Consult for medical management of hypertension diabetes - History of Present Illness The patient is a 69-year-old male the past medical history of type 2 diabetes with peripheral neuropathy, essential hypertension, chronic pain, GERD who is admitted to the general surgery service under Dr. sancho Burciaga and is postop after having repair of his right sided inguinal hernia, the patient postoperatively is doing well rates his pain at 8 out of 10. He currently denies chest pain or shortness of breath, denies any nausea vomiting. 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 RIGHT BREAST BIOPSY, TOTAL LT KNEE, LT FOOT , LARA INGUINAL HERNIA, PERCUTANEOUS NEPHROLITHOTOMY BILATERAL hand surgery, back procedure for nerve endings and [facility], ESOPHGEAL DILATION, eye sx to remove tumors Past Anesthesia/Blood Transfusion Reactions: No Reported Reaction Additional Past Anesthesia/Blood Transfusion Reaction / Comm: NEVER HAD ANY BLOOD TRANSFUSIONS Past Psychological History: Anxiety Additional Psychological History / Comment(s): . Smoking Status: Former smoker Past Alcohol Use History: None Reported Additional Past Alcohol Use History / Comment(s): STARTED SMOKING AT AGE 12, SMOKED 1 PPD, QUIT 2012 Past Drug Use History: None Reported - Past Family History Father Family Medical History: Cancer Mother Family Medical History: Liver Disease Additional Family Medical History / Comment(s): Mother had hepatitis. Medications and Allergies Home Medications Medication Instructions Recorded Confirmed Type Temazepam [Restoril] 30 mg PO HS 03/05/15 04/29/19 History Citalopram Hydrobromide [CeleXA] 40 mg PO DAILY 02/05/16 04/29/19 History Morphine Sulfate Ir [MSIR] 15 mg PO BID PRN 02/05/16 04/29/19 History Levocetirizine Dihydrochloride 5 mg PO HS 07/13/16 04/29/19 History [Xyzal] Tamsulosin [Flomax] 0.4 mg PO HS 07/13/16 04/29/19 History Hyoscyamine Sulfate [Levsin-Sl] 0.125 mg SL AC-TID PRN 08/04/16 04/29/19 History metFORMIN HCL [Glucophage Xr] 500 mg PO BID 11/27/16 04/29/19 History Aspirin EC [Ecotrin Low Dose] 81 mg PO QAM 12/22/16 04/29/19 History Omeprazole 40 mg PO BID 12/22/16 04/29/19 History ALPRAZolam [Xanax] 0.25 mg PO DAILY PRN 02/26/18 04/29/19 History Ibuprofen [Motrin] 800 mg PO HS 02/26/18 04/29/19 History Fluticasone Nasal [place] [Flonase 2 spr EA NOSTRIL BID 03/26/18 04/29/19 History Nasal [place]] Insulin Glargine,Hum.rec.anlog See Protocol SQ DAILY PRN 03/26/18 04/29/19 History [Touj[place]o Solostar] Gabapentin [Neurontin] 300 mg PO DAILY PRN 10/26/18 04/29/19 History Loratadine [Claritin] 10 mg PO DAILY PRN 01/15/19 04/29/19 History Lisinopril [Zestril] 5 mg PO QAM 04/29/19 04/29/19 History Docusate [Colace] 100 mg PO BID #20 capsule 05/02/19 Rx HYDROcodone/APAP 5-325MG [[place] 1 tab PO Q6HR PRN #10 tab 05/02/19 Rx 5-325] Allergies Allergy/AdvReac Type Severity Reaction Status Date / Time cephalexin monohydrate Allergy Rash/Hives Verified 05/02/19 06:16 [From Keflex] clarithromycin [From Biaxin] Allergy Unknown Verified 05/02/19 06:16 gentamicin [Gentamicin] Allergy Unknown Verified 05/02/19 06:16 naproxen Allergy Unknown Verified 05/02/19 06:16 Penicillins Allergy Anaphylaxis Verified 05/02/19 06:16 Sulfa (Sulfonamide Allergy Rash/Hives Verified 05/02/19 06:16 Antibiotics) promethazine AdvReac Nausea & Verified 05/02/19 06:16 Vomiting Physical Exam Vitals: Vital Signs Temp Pulse Pulse Pulse Resp BP BP 05/02/19 11:30 64 16 132/68 05/02/19 11:00 68 16 121/68 05/02/19 10:30 59 L 16 126/63 05/02/19 10:15 70 16 138/70 05/02/19 10:00 59 L 16 139/68 05/02/19 09:45 64 16 139/68 05/02/19 09:30 97.1 F L 76 16 154/72 05/02/19 07:25 70 16 05/02/19 07:00 97.2 F L 70 16 05/02/19 06:32 97.2 F L 60 16 BP Pulse Ox 05/02/19 11:30 96 05/02/19 11:00 96 05/02/19 10:30 95 05/02/19 10:15 97 05/02/19 10:00 98 05/02/19 09:45 98 05/02/19 09:30 95 05/02/19 07:25 157/69 95 05/02/19 07:00 157/69 95 05/02/19 06:32 163/77 96 Intake and Output 05/01/19 05/02/19 05/02/19 22:59 06:59 14:59 Intake Total 400 1256 Output Total 5 Balance 400 1251 Intake: IV 400 1256 Output: Estimated Blood Loss 5 Other: Weight 81.3 kg Constitutional: No acute distress, conversant, pleasant Eyes: Anicteric sclerae, moist conjunctiva, no lid-lag, PERRLA ENMT: NC/AT,Oropharynx clear, no erythema, exudates Neck:Supple, FROM, no masses, or JVD, No carotid bruits; No thyromegaly Lungs: Clear to auscultation, Clear to percussion, Normal respiratory effort, no accessory muscle use Cardiovascular: Heart regular in rate and rhythm, No murmurs, gallops, or rubs no peripheral edema Abdominal: Soft Nontender, nom distended, no guarding, no rebound or rigidity, Normoactive bowel sounds No hepatomegaly, No splenomegaly, No palpable mass No abdominal wall hernia noted Skin: Normal temperature, tone, texture, turgor, No induration No subcutaneous nodules, No rash, lesions, No ulcers Extremities:No digital cyanosis No clubbing, Pedal pulses intact and symmetrical Radial pulses intact and symmetrical Normal gait and station, No calf tenderness Psychiatric: Alert and oriented to person, place and time, Appropriate affect Intact judgement Neuro: Muscles Strength 5/5 in all 4 extremities, Sensation to light touch grossly present throughout, Cranial nerves II-XII grossly intact. No focal sensory deficits Results Labs: Abnormal Lab Results - Last 24 Hours (Table) 05/02/19 05/02/19 Range/Units 06:52 10:55 POC Glucose (mg/dL) 108 H 145 H (75-99) mg/dL Assessment and Plan (1) Type 2 diabetes mellitus with peripheral neuropathy Current Visit: Yes Status: Acute Code(s): E11.42 - TYPE 2 DIABETES MELLITUS WITH DIABETIC POLYNEUROPATHY SNOMED Code(s): 72553126 (2) Essential hypertension Current Visit: Yes Status: Acute Code(s): I10 - ESSENTIAL (PRIMARY) HYPERTENSION SNOMED Code(s): 16112859 (3) GERD (gastroesophageal reflux disease) Current Visit: Yes Status: Acute Code(s): K21.9 - GASTRO-ESOPHAGEAL REFLUX DISEASE WITHOUT ESOPHAGITIS SNOMED Code(s): 097597743 (4) S/P inguinal hernia repair Current Visit: Yes Status: Acute Code(s): Z98.890 - OTHER SPECIFIED POSTPROCEDURAL STATES; Z87.19 - PERSONAL HISTORY OF OTHER DISEASES OF THE DIGESTIVE SYSTEM SNOMED Code(s): 541168543 (5) Chronic pain Current Visit: No Status: Acute Code(s): G89.29 - OTHER CHRONIC PAIN SNOMED Code(s): 42024448 Plan: The patient is admitted and is postop right inguinal hernia repair anticipated discharge tomorrow. Patient currently hemodynamically stable we'll resume his home medications, we'll place him on sliding scale coverage and hold his metformin. His home antihypertensive regimen and aspirin will be restarted [place]. Thank you for this consult For further questions please do not hesitate to contact The Patient.
[2019-05-02 16:26] LABS: Glucose,Whole Blood 198 mg/dL (75-99)
[2019-05-02] MEDS: KETOROLAC 30 MG/ML 1 ML VIAL IVP SCH ×2 (16:38→20:32)
[2019-05-02] MEDS: PANTOPRAZOLE 40 MG TABLET PO SCH (18:28)
[2019-05-02] MEDS: INSULIN ASPART (NovoLOG) 100 UNIT/ML VIAL SQ SCH ×2 (18:31→20:33)
[2019-05-02 20:26] LABS: Glucose,Whole Blood 183 mg/dL (75-99)
[2019-05-02] MEDS: IBUPROFEN 800 MG TAB PO SCH (20:32)
[2019-05-02] MEDS: DOCUSATE 100 MG CAP PO SCH (20:32)
[2019-05-02] MEDS: TAMSULOSIN 0.4 MG CAP.ER.24H PO SCH (20:32)
[2019-05-02] MEDS: TEMAZEPAM 30 MG CAP PO SCH (20:32)
[2019-05-02] MEDS ORDERED: LEVOCETIRIZINE DIHYDROCHLORIDE 5 MG PO SCH (21:00)
[2019-05-03] MEDS: KETOROLAC 30 MG/ML 1 ML VIAL IVP SCH ×4 (04:17→20:44)
[2019-05-03 07:16] LABS: Glucose,Whole Blood 128 mg/dL (75-99)
[2019-05-03] MEDS: INSULIN ASPART (NovoLOG) 100 UNIT/ML VIAL SQ SCH ×4 (07:19→21:04)
[2019-05-03] MEDS: traMADol 50 MG TAB PO PRN ×2 (08:12→13:19)
[2019-05-03] MEDS: CITALOPRAM HYDROBROMIDE 20 MG TAB PO SCH (08:12)
[2019-05-03] MEDS: LISINOPRIL 5 MG TAB PO SCH (08:12)
[2019-05-03] MEDS: DOCUSATE 100 MG CAP PO SCH ×2 (08:12→20:45)
[2019-05-03] MEDS: PANTOPRAZOLE 40 MG TABLET PO SCH ×2 (08:12→18:16)
[2019-05-03] MEDS: ASPIRIN 81 MG PO SCH (08:12)
[2019-05-03] MEDS: ENOXAPARIN 40 MG/0.4 ML SYRINGE SQ SCH (08:14)
[2019-05-03 11:21] LABS: Glucose,Whole Blood 164 mg/dL (75-99)
--- NOTE | 2019-05-03 14:51 | P.PN ---
Subjective Progress Note Date: 05/03/19 Patient examined at bedside, complains of pain. Apparently having issues with pain control, patient seen yesterday by anesthesia and had a right transversus abdominis nerve block. Patient's blood sugars continued to be stable with correctional insulin coverage and blood pressure continues to be controlled with the most part Objective - Vital Signs Vital signs: Vital Signs Temp 98.2 F 05/03/19 08:08 Pulse 59 L 05/03/19 08:08 Resp 16 05/03/19 08:08 BP 168/86 05/03/19 08:08 Pulse Ox 93 L 05/03/19 08:08 Intake & Output 05/02/19 05/03/19 05/03/19 18:59 06:59 18:59 Intake Total 2087 1550 Output Total 5 Balance 2082 1550 Intake: IV 1256 Intake, IV Titration 1250 Amount Lactated Ringers 1,000 ml 1250 @ 125 mls/hr IV .Q8H ONE Rx#:[id number] Oral 832 300 Output: Estimated Blood Loss 5 Other: Voiding Method Toilet # Voids 1 3 3 - Exam Constitutional: No acute distress, conversant, pleasant Eyes: Anicteric sclerae, moist conjunctiva, no lid-lag, PERRLA ENMT: NC/AT,Oropharynx clear, no erythema, exudates Neck:Supple, FROM, no masses, or JVD, No carotid bruits; No thyromegaly Lungs: Clear to auscultation, Clear to percussion, Normal respiratory effort, no accessory muscle use Cardiovascular: Heart regular in rate and rhythm, No murmurs, gallops, or rubs no peripheral edema Abdominal: Soft Nontender, nom distended, no guarding, no rebound or rigidity, Normoactive bowel sounds No hepatomegaly, No splenomegaly, No palpable mass No abdominal wall hernia noted Skin: Normal temperature, tone, texture, turgor, No induration No subcutaneous nodules, No rash, lesions, No ulcers Extremities:No digital cyanosis No clubbing, Pedal pulses intact and symmetrical Radial pulses intact and symmetrical Normal gait and station, No calf tenderness Psychiatric: Alert and oriented to person, place and time, Appropriate affect Intact judgement Neuro: Muscles Strength 5/5 in all 4 extremities, Sensation to light touch grossly present throughout, Cranial nerves II-XII grossly intact. No focal sensory deficits - Labs Labs: Abnormal Lab Results - Last 24 Hours (Table) 05/02/19 05/02/19 05/03/19 Range/Units 16:26 20:15 07:15 POC Glucose (mg/dL) 198 H 183 H 128 H (75-99) mg/dL 05/03/19 Range/Units 11:19 POC Glucose (mg/dL) 164 H (75-99) mg/dL Assessment and Plan (1) Type 2 diabetes mellitus with peripheral neuropathy Narrative/Plan: * Blood sugar stable continue current regimen Current Visit: Yes Status: Chronic Code(s): E11.42 - TYPE 2 DIABETES MELLITUS WITH DIABETIC POLYNEUROPATHY SNOMED Code(s): 92252213 (2) Essential hypertension Narrative/Plan: * Blood pressure relatively stable continue current regimen Current Visit: Yes Status: Chronic Code(s): I10 - ESSENTIAL (PRIMARY) HYPERTENSION SNOMED Code(s): 28858745 (3) GERD (gastroesophageal reflux disease) Narrative/Plan: * Stable continue current regimen Current Visit: Yes Status: Chronic Code(s): K21.9 - GASTRO-ESOPHAGEAL REFLUX DISEASE WITHOUT ESOPHAGITIS SNOMED Code(s): 282862229 (4) S/P inguinal hernia repair Narrative/Plan: * Defer postoperative care to the primary team general surgery Current Visit: Yes Status: Acute Code(s): Z98.890 - OTHER SPECIFIED POSTPROCEDURAL STATES; Z87.19 - PERSONAL HISTORY OF OTHER DISEASES OF THE DIGESTIVE SYSTEM SNOMED Code(s): 422535969 (5) Chronic pain Narrative/Plan: * Defer management to anesthesia and primary team Current Visit: No Status: Chronic Code(s): G89.29 - OTHER CHRONIC PAIN SNOMED Code(s): 82320629 Plan: * Patient doing well medically having ongoing issues with pain control which primary team and anesthesia her dressing * We'll sign off for further questions please not hesitate to contact us an inpatient team
--- NOTE | 2019-05-03 16:12 | P.PN ---
Subjective Progress Note Date: 05/03/19 CHIEF COMPLAINT: Severe post-operative pain HISTORY OF PRESENT ILLNESS: The patient is a 69-year-old male postop day 1 status post right inguinal hernia repair, 05/02/2019. He had trouble with urinating and was straight cath. He still reports severe pain at his right lateral incision. He is urinating. He has history of moderate chronic pain syndrome and takes oral morphine, ibuprofen regularly from severe back pain. ROS: No reports of nausea and vomiting. No bowel movements. No fevers or chills. No new chest pain. No productive sputum PHYSICAL EXAM: VITAL SIGNS: Reviewed CONSTITUTIONAL: Well developed and in no acute distress. EYES: Conjuctivae without sclera icterus. Extraocular movements grossly intact. HEAD, EARS, NOSE, THROAT: Moist buccal mucosa. Head is atraumatic, normocephalic. Hears conversational speech. No nasal drainage. NECK: Supple. No thyroidomegaly. RESPIRATORY: Non-labored respirations and equal bilateral excursions. CARDIOVASCULAR: Palpable 2+ radial pulses. Regular rate. Regular rhythm. ABDOMEN: Incisions clean dry and intact. Soft. No peritonitis. Minimal tenderness left upper quadrant. MUSCULOSKELETAL: No gross deformity of the lower extremities noted. No clubbing. No cyanosis. SKIN: Good skin turgor. Well perfused. NEUROLOGIC: Cranial nerves I through XII grossly intact. No focal or lateralizing signs. PSYCH: Appropriate affect. Alert and oriented to person, place and time. CLINCAL LABS: Blood sugars 100-200 ASSESSMENT: 1. Right inguinal hernia 2. Severe postoperative pain PLAN: 1. Will hold discharge until pain appropriately managed. 2. Targeted discharge for tomorrow. Objective - Vital Signs Vital signs: Vital Signs Temp 98.7 F 05/03/19 15:00 Pulse 59 L 05/03/19 15:00 Resp 16 05/03/19 15:00 BP 143/71 05/03/19 15:00 Pulse Ox 93 L 05/03/19 15:00 Intake & Output 05/02/19 05/03/19 05/03/19 18:59 06:59 18:59 Intake Total 8 1550 Output Total 5 Balance 3 1550 Intake: IV 1256 Intake, IV Titration 1250 Amount Lactated Ringers 1,000 ml 1250 @ 125 mls/hr IV .Q8H ONE Rx#:[id number] Oral 832 300 Output: Estimated Blood Loss 5 Other: Voiding Method Toilet # Voids 1 3 3 - Labs Labs: Abnormal Lab Results - Last 24 Hours (Table) 05/02/19 05/02/19 05/03/19 Range/Units 16:26 20:15 07:15 POC Glucose (mg/dL) 198 H 183 H 128 H (75-99) mg/dL 05/03/19 Range/Units 11:19 POC Glucose (mg/dL) 164 H (75-99) mg/dL Assessment and Plan (1) Right groin hernia Current Visit: Yes Status: Acute Code(s): K40.90 - UNIL INGUINAL HERNIA, W/O OBST OR GANGR, NOT SPCF RECUR SNOMED Code(s): 924181265 (2) Chronic pain syndrome Current Visit: Yes Status: Acute Code(s): G89.4 - CHRONIC PAIN SYNDROME SNOMED Code(s): 382069454 (3) Severe pain Current Visit: Yes Status: Acute Code(s): R52 - PAIN, UNSPECIFIED SNOMED Code(s): 41499706 (4) Postoperative pain Current Visit: Yes Status: Acute Code(s): G89.18 - OTHER ACUTE POSTPROCEDURAL PAIN SNOMED Code(s): 168636677 (5) S/P inguinal hernia repair Current Visit: Yes Status: Acute Code(s): Z98.890 - OTHER SPECIFIED POSTPROCEDURAL STATES; Z87.19 - PERSONAL HISTORY OF OTHER DISEASES OF THE DIGESTIVE SYSTEM SNOMED Code(s): 447789202 (6) GERD (gastroesophageal reflux disease) Current Visit: Yes Status: Chronic Code(s): K21.9 - GASTRO-ESOPHAGEAL REFLUX DISEASE WITHOUT ESOPHAGITIS SNOMED Code(s): 938693864 (7) Type 2 diabetes mellitus with peripheral neuropathy Current Visit: Yes Status: Chronic Code(s): E11.42 - TYPE 2 DIABETES MELLITUS WITH DIABETIC POLYNEUROPATHY SNOMED Code(s): 26715080 (8) GERD (gastroesophageal reflux disease) Current Visit: No Status: Acute Code(s): K21.9 - GASTRO-ESOPHAGEAL REFLUX DISEASE WITHOUT ESOPHAGITIS SNOMED Code(s): 973039979
[2019-05-03 17:07] LABS: Glucose,Whole Blood 100 mg/dL (75-99)
[2019-05-03] MEDS: HYDROmorphone 0.5 MG/0.5 ML SYRINGE IVP PRN ×2 (18:16→21:19)
[2019-05-03] MEDS: IBUPROFEN 800 MG TAB PO SCH (20:45)
[2019-05-03] MEDS: TAMSULOSIN 0.4 MG CAP.ER.24H PO SCH (20:45)
[2019-05-03 21:06] LABS: Glucose,Whole Blood 106 mg/dL (75-99)
[2019-05-03] MEDS: TEMAZEPAM 30 MG CAP PO SCH (22:03)
[2019-05-04] MEDS: HYDROmorphone 0.5 MG/0.5 ML SYRINGE IVP PRN ×3 (00:59→08:11)
[2019-05-04] MEDS: KETOROLAC 30 MG/ML 1 ML VIAL IVP SCH ×2 (03:38→11:29)
[2019-05-04] MEDS: traMADol 50 MG TAB PO PRN ×2 (03:41→13:09)
[2019-05-04] MEDS: LACTATED RINGERS 1,000 ML IV SCH (03:42)
[2019-05-04 07:29] LABS: Glucose,Whole Blood 101 mg/dL (75-99)
[2019-05-04] MEDS: INSULIN ASPART (NovoLOG) 100 UNIT/ML VIAL SQ SCH ×2 (07:31→15:44)
[2019-05-04 07:35] VITALS: BP 168/82; PULSE 56; RESP 17; TEMP 97.9
[2019-05-04] MEDS: ENOXAPARIN 40 MG/0.4 ML SYRINGE SQ SCH (08:12)
[2019-05-04] MEDS: PANTOPRAZOLE 40 MG TABLET PO SCH (08:12)
[2019-05-04] MEDS: CITALOPRAM HYDROBROMIDE 20 MG TAB PO SCH (08:12)
[2019-05-04] MEDS: LISINOPRIL 5 MG TAB PO SCH (08:12)
[2019-05-04] MEDS: ASPIRIN 81 MG PO SCH (08:12)
[2019-05-04] MEDS: DOCUSATE 100 MG CAP PO SCH (08:12)
--- NOTE | 2019-05-04 10:54 | P.PN ---
Subjective Progress Note Date: 05/04/19 CHIEF COMPLAINT: Severe post-operative pain HISTORY OF PRESENT ILLNESS: The patient is a 69-year-old male postop day 2 status post right inguinal hernia repair, 05/02/2019. He is voiding spontaneously. He is a chronic pain patient and reports persistent incisional pain which is to be expected. "I had a good combination at home." He has not contacted his pain specialist, Dr. Jackson of his recent surgery or need for adjustment of his pain meds. ROS: No reports of nausea and vomiting. No bowel movements. No fevers or chills. No new chest pain. No productive sputum PHYSICAL EXAM: VITAL SIGNS: Reviewed CONSTITUTIONAL: Well developed and in no acute distress. EYES: Conjuctivae without sclera icterus. Extraocular movements grossly intact. HEAD, EARS, NOSE, THROAT: Moist buccal mucosa. Head is atraumatic, normocephalic. Hears conversational speech. No nasal drainage. NECK: Supple. No thyroidomegaly. RESPIRATORY: Non-labored respirations and equal bilateral excursions. CARDIOVASCULAR: Palpable 2+ radial pulses. Regular rate. Regular rhythm. ABDOMEN: Incisions clean dry and intact. Soft. No peritonitis. Mild incisional tenderness at the right lower abd MUSCULOSKELETAL: No gross deformity of the lower extremities noted. No clubbing. No cyanosis. SKIN: Good skin turgor. Well perfused. NEUROLOGIC: Cranial nerves I through XII grossly intact. No focal or lateralizing signs. PSYCH: Appropriate affect. Alert and oriented to person, place and time. CLINCAL LABS: Blood sugars 100-200 ASSESSMENT: 1. Right inguinal hernia 2. History of chronic pain. PLAN: 1. I have asked him to notify his pain provider as he has complex pain regimen which will need to be adjusted for his recent surgery. 2. I offered rehab evaluation and home health care as he reports his also had emergency surgery and will need at home care. 3. Likely discharge in 24 hours. Objective - Vital Signs Vital signs: Vital Signs Temp 97.9 F 05/04/19 07:00 Pulse 56 L 05/04/19 07:00 Resp 17 05/04/19 07:00 BP 168/82 05/04/19 07:00 Pulse Ox 95 05/04/19 07:00 Intake & Output 05/03/19 05/04/19 05/04/19 18:59 06:59 18:59 Intake Total 480 120 Output Total 150 Balance 330 120 Intake: Oral 480 120 Output: Urine 150 Other: Voiding Method Toilet Toilet Toilet Urinal Urinal # Voids 3 - Labs Labs: Abnormal Lab Results - Last 24 Hours (Table) 05/03/19 05/03/19 05/03/19 Range/Units 11:19 17:06 21:04 POC Glucose (mg/dL) 164 H 100 H 106 H (75-99) mg/dL 05/04/19 Range/Units 07:18 POC Glucose (mg/dL) 101 H (75-99) mg/dL Assessment and Plan (1) Right groin hernia Current Visit: Yes Status: Acute Code(s): K40.90 - UNIL INGUINAL HERNIA, W/O OBST OR GANGR, NOT SPCF RECUR SNOMED Code(s): 212847889 (2) Chronic pain syndrome Current Visit: Yes Status: Acute Code(s): G89.4 - CHRONIC PAIN SYNDROME SNOMED Code(s): 239043619 (3) Severe pain Current Visit: Yes Status: Acute Code(s): R52 - PAIN, UNSPECIFIED SNOMED Code(s): 84476952 (4) Postoperative pain Current Visit: Yes Status: Acute Code(s): G89.18 - OTHER ACUTE POSTPROCEDURAL PAIN SNOMED Code(s): 397289043 (5) S/P inguinal hernia repair Current Visit: Yes Status: Acute Code(s): Z98.890 - OTHER SPECIFIED POSTPROCEDURAL STATES; Z87.19 - PERSONAL HISTORY OF OTHER DISEASES OF THE DIGESTIVE SYSTEM SNOMED Code(s): 002872234 (6) GERD (gastroesophageal reflux disease) Current Visit: Yes Status: Chronic Code(s): K21.9 - GASTRO-ESOPHAGEAL REFLUX DISEASE WITHOUT ESOPHAGITIS SNOMED Code(s): 379810069 (7) Type 2 diabetes mellitus with peripheral neuropathy Current Visit: Yes Status: Chronic Code(s): E11.42 - TYPE 2 DIABETES MELLITUS WITH DIABETIC POLYNEUROPATHY SNOMED Code(s): 80395936 (8) GERD (gastroesophageal reflux disease) Current Visit: No Status: Acute Code(s): K21.9 - GASTRO-ESOPHAGEAL REFLUX DISEASE WITHOUT ESOPHAGITIS SNOMED Code(s): 148857405
[2019-05-04] MEDS ORDERED: MORPHINE SULFATE IR 15 MG TABLET PO PRN (10:56)
[2019-05-04 11:09] LABS: Glucose,Whole Blood 114 mg/dL (75-99)
--- NOTE | 2019-05-04 13:00 | P.PN ---
Progress Note - Text Progress Note Date: 05/04/19 Patient restarted on home pain medication including MS Contin. Patient is aware that he will have follow up closely with his pain provider for any additional adjustment. Patient otherwise clear for discharge with follow-up with pain specialist
--- NOTE | 2019-05-19 15:33 | P.GSHP ---
History of Present Illness H&P Date: 05/02/19 Chief Complaint: Recurrent right inguinal hernia This is a 69-year-old male has developed a recurrent right inguinal hernia. Patient is today for laparoscopic robotic-assisted repair. 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 RIGHT BREAST BIOPSY, TOTAL LT KNEE, LT FOOT , LARA INGUINAL HERNIA, PERCUTANEOUS NEPHROLITHOTOMY BILATERAL hand surgery, back procedure for nerve endings and cortisone injections at [facility], ESOPHGEAL DILATION, eye sx to remove tumors Past Anesthesia/Blood Transfusion Reactions: No Reported Reaction Additional Past Anesthesia/Blood Transfusion Reaction / Comment(s): NEVER HAD ANY BLOOD TRANSFUSIONS Past Psychological History: Anxiety Additional Psychological History / Comment(s): . Smoking Status: Former smoker Past Alcohol Use History: None Reported Additional Past Alcohol Use History / Comment(s): STARTED SMOKING AT AGE 12, SMOKED 1 PPD, QUIT 2012 Past Drug Use History: None Reported - Past Family History Father Family Medical History: Cancer Mother Family Medical History: Liver Disease Additional Family Medical History / Comment(s): Mother had hepatitis. Medications and Allergies Home Medications Medication Instructions Recorded Confirmed Type Temazepam [Restoril] 30 mg PO HS 03/05/15 04/29/19 History Citalopram Hydrobromide [CeleXA] 40 mg PO DAILY 02/05/16 04/29/19 History Morphine Sulfate Ir [MSIR] 15 mg PO BID PRN 02/05/16 04/29/19 History Levocetirizine Dihydrochloride 5 mg PO HS 07/13/16 04/29/19 History [Xyzal] Tamsulosin [Flomax] 0.4 mg PO HS 07/13/16 04/29/19 History Hyoscyamine Sulfate [Levsin-Sl] 0.125 mg SL AC-TID PRN 08/04/16 04/29/19 History metFORMIN HCL [Glucophage Xr] 500 mg PO BID 11/27/16 04/29/19 History Aspirin EC [Ecotrin Low Dose] 81 mg PO QAM 12/22/16 04/29/19 History Omeprazole 40 mg PO BID 12/22/16 04/29/19 History ALPRAZolam [Xanax] 0.25 mg PO DAILY PRN 02/26/18 04/29/19 History Ibuprofen [Motrin] 800 mg PO HS 02/26/18 04/29/19 History Fluticasone Nasal [place] [Flonase 2 spr EA NOSTRIL BID 03/26/18 04/29/19 History Nasal [place]] Insulin Glargine,Hum.rec.anlog See Protocol SQ DAILY PRN 03/26/18 04/29/19 History [Toujeo Solostar] Gabapentin [Neurontin] 300 mg PO DAILY PRN 10/26/18 04/29/19 History Loratadine [Claritin] 10 mg PO DAILY PRN 01/15/19 04/29/19 History Lisinopril [Zestril] 5 mg PO QAM 04/29/19 04/29/19 History Docusate [Colace] 100 mg PO BID #20 capsule 05/02/19 Rx HYDROcodone/APAP 5-325MG [Queen 1 tab PO Q6HR PRN #10 tab 05/02/19 Rx 5-325] Allergies Allergy/AdvReac Type Severity Reaction Status Date / Time cephalexin monohydrate Allergy Rash/Hives Verified 05/02/19 06:16 [From Keflex] clarithromycin [From Biaxin] Allergy Unknown Verified 05/02/19 06:16 gentamicin [Gentamicin] Allergy Unknown Verified 05/02/19 06:16 naproxen Allergy Unknown Verified 05/02/19 06:16 Penicillins Allergy Anaphylaxis Verified 05/02/19 06:16 Sulfa (Sulfonamide Allergy Rash/Hives Verified 05/02/19 06:16 Antibiotics) promethazine AdvReac Nausea & Verified 05/02/19 06:16 Vomiting Surgical - Exam Vital Signs Temp Pulse Resp BP Pulse Ox 97.2 F L 60 16 163/77 96 05/02/19 06:32 05/02/19 06:32 05/02/19 06:32 05/02/19 06:32 05/02/19 06:32 - General well developed, well nourished, no distress - Eyes PERRL - ENT normal pinna - Neck no masses - Respiratory normal expansion - Cardiovascular Rhythm: regular - Abdomen Recurrent right inguinal hernia Abdomen: soft, non tender Assessment and Plan Assessment: Recurrent right inguinal hernia. We'll perform laparoscopic robotic assistance repair.
--- NOTE | 2019-05-19 15:34 | P.OP ---
Date of Procedure: 05/02/19 Preoperative Diagnosis: Recurrent right inguinal hernia Postoperative Diagnosis: Recurrent right inguinal hernia Procedure(s) Performed: Laparoscopic robotic-assisted repair of recurrent right inguinal hernia Anesthesia: CELINE Surgeon: Juan Patel Estimated Blood Loss (ml): 5 Pathology: none sent Condition: stable Disposition: PACU Description of Procedure: The patient was placed on the operating table in the supine position. The patient received general anesthesia. The patient's abdomen was prepped and draped in usual sterile fashion. The skin was anesthetized 1% local Xylocaine at the incision sites. Using an 11 blade a skin incision was made at the umbilicus. The fascia was grasped with a Maxwell and then the peritoneal cavity was entered with the Veress needle. Position of the Veress needle was confirmed with a positive drop test. After adequate insufflation a 5 mm trocar was placed into the peritoneal cavity. The Laparoscope was placed the peritoneal cavity. And a robotic 8 mm trocar was placed in the right lateral position and then another 8 mm robotic trochars placed in the left lateral position. The original 5 mm trocar was exchanged for a 12 mm trocar. The patient was placed in reverse Trendelenburg and then the patient was docked to the robot. Next the peritoneum over top of the hernia was incised and then using blunt and sharp dissection and electrocautery the hernia sac was dissected free from the floor of the inguinal canal. The hernia sac was completely reduced into the peritoneal cavity. And then using the [employer] account services coordinator mesh the hernia was repaired. The peritoneum was then sutured with 2-0V lock suture. The patient was then undocked the robot. The needle was withdrawn from the peritoneal cavity. The umbilical trocar site was closed with 0 Ethibond suture. The skin was closed interrupted 3-0 Monocryl suture. Dermabond dressing was applied. Patient was sent to recovery in stable condition.
== END 2019-05-04 15:00 | disposition home or self-care (01) ==
LOC: OR 05:45 → 4SSUR 09:30 → OR 05-04 15:00
PROVIDERS: ATTEND Surgery
DX: K40.91 Unilateral inguinal hernia, without obstruction or gangrene, recurrent (principal); K21.9 Gastro-esophageal reflux disease without esophagitis; I10 Essential (primary) hypertension; G89.18 Other acute postprocedural pain; E11.42 Type 2 diabetes mellitus with diabetic polyneuropathy; N42.9 Disorder of prostate, unspecified; K57.90 Diverticulosis of intestine, part unspecified, without perforation or abscess without bleeding; Z85.3 Personal history of malignant neoplasm of breast; Z87.442 Personal history of urinary calculi; Z85.89 Personal history of malignant neoplasm of other organs and systems; Z90.49 Acquired absence of other specified parts of digestive tract; Z96.652 Presence of left artificial knee joint; G43.909 Migraine, unspecified, not intractable, without status migrainosus; F41.9 Anxiety disorder, unspecified; Z87.891 Personal history of nicotine dependence; Z83.79 Family history of other diseases of the digestive system; Z79.1 Long term (current) use of non-steroidal anti-inflammatories (NSAID); Z79.82 Long term (current) use of aspirin; Z79.891 Long term (current) use of opiate analgesic; Z79.899 Other long term (current) drug therapy; Z79.4 Long term (current) use of insulin; Z88.6 Allergy status to analgesic agent; Z88.1 Allergy status to other antibiotic agents; Z88.0 Allergy status to penicillin; Z88.2 Allergy status to sulfonamides; Z88.8 Allergy status to other drugs, medicaments and biological substances
CPT/HCPCS: 49651; 64488; C1781; J2250; J1644; J1100; J2710; J2405; J1956; J2001; J1650 ×2; J3010; J1885 ×3; J1170 ×4; J0330; J2704

== ENCOUNTER → 2019-07-02 | Outpatient (CLI) | payer MEDICARE ==
--- NOTE | 2019-07-02 09:02 | US ---
EXAMINATION TYPE: US axilla LT DATE OF EXAM: 07/02/2019 COMPARISON: NONE CLINICAL HISTORY: R22.9 Left axilla nodule. Left axilla palpable/tender area x 3 weeks Left axilla: multiple heterogenous solid appearing areas seen at patient's area of concern with large st measuring 2.4 x 0.8 x 1.6cm. There is some associated peripheral and internal vascular flow and sh adowing as seen on image 14/24. Multiple nonenlarged lymph nodes are seen. Right axilla for comparison: appears wnl IMPRESSION: Solid left axillary mass at the area of palpable abnormality has peripheral vascular efren w. Mammography is recommended as an initial diagnostic workup with recommendation for percutaneous bi opsy of the left axillary mass is mammogram is negative.
== END ==
LOC: RADUSWWP 07:47
PROVIDERS: ATTEND Family Medicine
DX: R22.9 Localized swelling, mass and lump, unspecified (principal)

== ENCOUNTER → 2019-07-18 | Outpatient (CLI) | payer MEDICARE ==
--- NOTE | 2019-07-18 11:55 | MM ---
Reason for exam: clinical finding. Last mammogram was performed 13 years and 7 months ago. History: Patient has history of other cancer at age 68 and has history of breast cancer at age 39. Excisional biopsy of the right breast, 2004. Lumpectomy of the right breast. Physical Findings: Nurse did not find any significant physical abnormalities on exam. MG 3D Diag Mammo W/Cad LARA Bilateral CC and MLO view(s) were taken. XCCL view(s) were taken of the left breast. Prior study comparison: December 12, 2005, CAD bilateral diagnostic mammogram. There are scattered fibroglandular densities. Finding: There are typically benign round calcifications in the lower quadrant of the right breast. These results were verbally communicated with the patient and result sheet given to the patient on 07/18/19. ASSESSMENT: Suspicious, BI-RAD 4 RECOMMENDATION: Ultrasound core biopsy of the left breast. (axillary mass) Called Dr. Hastings's office with mammographic findings and has scheduled an appointment for the patient for 07/24/[address] Patel. Biopsy scheduled for 08/01/19 at 11:30. PRELIMINARY REPORT CALLED AND FAXED TO DR. PATEL ON 07/18/19.
== END | disposition home or self-care (01) ==
LOC: RADMAMWWP 06:54
PROVIDERS: ATTEND Family Medicine
DX: N63.32 Unspecified lump in axillary tail of the left breast (principal)
CPT/HCPCS: 77066; G0279; 77062

== ENCOUNTER → 2019-07-22 | Outpatient (CLI) | payer MEDICARE ==
--- NOTE | 2019-07-22 19:22 | PN ---
PROGRESS NOTE This 69-year-old male patient coming in for a followup regarding obstructive sleep apnea. The patient has had an AHI of 46, consistent with severe obstructive sleep apnea. The patient is currently on CPAP pressure of 10 cm of water. Over the past 2 years, the patient has gained only few pounds. He used to be 178, he is up to 181. Based on the compliance data, the patient's AHI is down to 6.9 while on treatment. He has been averaging 8.9 hours of CPAP use per night and his CPAP use for more than 4 hours is 100% with a leak of 12 L/minute. He has no specific complaints otherwise for now. His treatment remains successful. No major hypersomnia, tiredness or sleepiness during the day. He is using the same mask interface. REVIEW OF SYSTEMS: Fourteen-point review of system was done. Positive findings are mentioned in history of present illness. PHYSICAL EXAMINATION: GENERAL APPEARANCE: Calm and comfortable. HEENT: Head is atraumatic. Normocephalic. NECK: Supple. No JVD. No goiter or neck masses. LUNGS: Clear to auscultation. HEART: Heart sounds are regular rate and rhythm. Normal S1/S2. No murmurs. ABDOMEN: Soft, nontender. No organomegaly. EXTREMITIES: No edema. No cyanosis or clubbing. NEUROLOGICAL: Awake and alert and there are no focal neurological deficits. PSYCHIATRIC: Negative for anxiety or depression. IMPRESSION: 1. Severe obstructive sleep apnea AHI of 47, currently on an APAP at a pressure of 10 with successful treatment. Compliance data was checked. 2. Degenerative arthritis. 3. Macular degeneration. 4. Osteoarthritis. 5. Diverticulosis. 6. Spinal stenosis. 7. Diabetes mellitus. PLAN: Continue current treatment. No change in the pressure setting or mask interface. Refills in the mask was given and the patient is using a Simplus full-face mask. We will continue the same treatment. We will see him back in a year's time in followup. Encourage further weight loss. Implement good sleep hygiene measures. We will follow. In general, his treatment has been successful. MMODL / IJN: [id number] /
== END | disposition home or self-care (01) ==
LOC: SLEEP 14:52
PROVIDERS: ATTEND Internal Medicine Critical Care Medicine
DX: G47.33 Obstructive sleep apnea (adult) (pediatric) (principal); M19.90 Unspecified osteoarthritis, unspecified site; H35.30 Unspecified macular degeneration; K57.90 Diverticulosis of intestine, part unspecified, without perforation or abscess without bleeding; M48.00 Spinal stenosis, site unspecified; E11.9 Type 2 diabetes mellitus without complications

== ENCOUNTER 2019-07-30 10:40 | Emergency (ER) | payer MEDICARE ==
[2019-07-30 10:43] VITALS: RESP 18; TEMP 97.8
[2019-07-30] MEDS ORDERED: HYDROmorphone 1 MG/ML 1 ML SYRINGE IVP STA (11:40)
--- NOTE | 2019-07-30 12:06 | ED ---
General Adult HPI - General Chief complaint: Neck Pain/Injury Stated complaint: Neck&shoulder pain, weakness Time Seen by Provider: 07/30/19 11:09 Source: patient, RN notes reviewed, old records reviewed Mode of arrival: wheelchair Limitations: no limitations - History of Present Illness Initial comments: Patient is a 69-year-old male presents emergency department today for evaluation for neck and axilla pain. Patient reports that he has had enlarged lymphnodes and is getting them biopsied on Sunday. Patient reports that he has had pain for 3 weeks. Patient is on oral morphine in the [facility]. Patient has fever or chills or chest pain or shortness of breath. - Related Data Home Medications Medication Instructions Recorded Confirmed Temazepam [Restoril] 30 mg PO HS 03/05/15 08/01/19 Citalopram Hydrobromide [CeleXA] 40 mg PO DAILY 02/05/16 08/01/19 Morphine Sulfate Ir [MSIR] 15 mg PO BID PRN 02/05/16 08/01/19 Levocetirizine Dihydrochloride 5 mg PO HS 07/13/16 08/01/19 [Xyzal] Tamsulosin [Flomax] 0.4 mg PO HS 07/13/16 08/01/19 metFORMIN HCL [Glucophage Xr] 500 mg PO BID 11/27/16 08/01/19 Omeprazole 40 mg PO BID 12/22/16 07/30/19 ALPRAZolam [Xanax] 0.25 mg PO DAILY PRN 02/26/18 07/30/19 Fluticasone Nasal [place] [Flonase 2 spr EA NOSTRIL BID 03/26/18 08/01/19 Nasal [place]] Gabapentin [Neurontin] 300 mg PO HS 10/26/18 08/01/19 Loratadine [Claritin] 10 mg PO DAILY 01/15/19 08/01/19 Lisinopril [Zestril] 5 mg PO QAM 04/29/19 08/01/19 Docusate [Colace] 100 mg PO DAILY PRN 07/21/19 07/30/19 Furosemide [Lasix] 20 mg PO DAILY PRN 07/21/19 08/01/19 Ibuprofen [Motrin] 600 mg PO Q8HR PRN 07/30/19 08/01/19 Allergies Allergy/AdvReac Type Severity Reaction Status Date / Time cephalexin monohydrate Allergy Rash/Hives Verified 08/01/19 07:11 [From Keflex] clarithromycin [From Biaxin] Allergy Unknown Verified 08/01/19 07:11 gentamicin [Gentamicin] Allergy Unknown Verified 08/01/19 07:11 naproxen Allergy Unknown Verified 08/01/19 07:11 Penicillins Allergy Anaphylaxis Verified 08/01/19 07:11 Sulfa (Sulfonamide Allergy Rash/Hives Verified 08/01/19 07:11 Antibiotics) promethazine AdvReac Nausea & Verified 08/01/19 07:11 Vomiting Review of Systems ROS Statement: Those systems with pertinent positive or pertinent negative responses have been documented in the HPI. ROS Other: All systems not noted in ROS Statement are negative. 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 RIGHT BREAST BIOPSY, TOTAL LT KNEE, LT FOOT SX, LARA INGUINAL HERNIA, PERCUTANEOUS NEPHROLITHOTOMY B ILATERAL hand surgery, back procedure for nerve endings and cortisone injections at [facility], ESOPHGEAL DILATION, eye sx to remove tumors, LUMPECTOMY RIGHT Past Anesthesia/Blood Transfusion Reactions: No Reported Reaction Additional Past Anesthesia/Blood Transfusion Reaction / Comment(s): NEVER HAD ANY BLOOD TRANSFUSIONS Past Psychological History: Depression Smoking Status: Former smoker Past Alcohol Use History: None Reported Past Drug Use History: None Reported - Past Family History Father Family Medical History: Cancer Mother Family Medical History: Liver Disease Additional Family Medical History / Comment(s): Mother had hepatitis. General Exam - General Exam Comments Initial Comments: 69 year old male, no acute distress. Limitations: no limitations, language barrier General appearance: alert, in no apparent distress Head exam: Present: atraumatic, normocephalic, normal inspection Eye exam: Present: normal appearance, PERRL, EOMI. Absent: scleral icterus, conjunctival injection, periorbital swelling ENT exam: Present: normal exam, mucous membranes moist, other (enlarged left sided cervical lymph nodes. No skin changes. ) Neck exam: Present: normal inspection. Absent: tenderness, meningismus, lymphadenopathy Respiratory exam: Present: normal lung sounds bilaterally. Absent: respiratory distress, wheezes, rales, rhonchi, stridor Cardiovascular Exam: Present: regular rate, normal rhythm, normal heart sounds. Absent: systolic murmur, diastolic murmur, rubs, gallop, clicks GI/Abdominal exam: Present: soft, normal bowel sounds. Absent: distended, tenderness, guarding, rebound, rigid Neurological exam: Present: alert, oriented X3, CN II-XII intact Psychiatric exam: Present: normal affect, normal mood Skin exam: Present: warm, dry, intact, normal color. Absent: rash Course Vital Signs 07/30/19 07/30/19 10:41 14:07 Temperature 97.8 F Pulse Rate 70 72 Respiratory 18 18 Rate Blood Pressure 133/76 131/81 O2 Sat by Pulse 99 97 Oximetry Medical Decision Making - Medical Decision Making 69 year old male presents with chronic pain on neck and axilla. Patient reports he is getting mammogram and US last week, and is getting the lymphnode biopsy on Sunday. He is on chronic pain mediaction. Blood work obtained, mild leukocytosis and elevated ALP. Patient ALP is decreased from previous visit. Discussed this is concerning for cancer, but need to confirm with biopsy. Discussed patient needs to follow up with pain management. - Lab Data Result diagrams: 07/30/19 12:11 07/30/19 12:11 Lab Results 07/30/19 07/30/19 Range/Units 12:11 12:11 WBC 13.8 H (3.8-10.6) k/uL RBC 4.60 (4.30-5.90) m/uL Hgb 13.9 (13.0-17.5) gm/dL Hct 43.5 (39.0-53.0) % MCV 94.5 (80.0-100.0) fL MCH 30.1 (25.0-35.0) pg MCHC 31.9 (31.0-37.0) g/dL RDW 20.9 H (11.5-15.5) % Plt Count 294 (150-450) k/uL Neutrophils % Not Reportable Neutrophils % (Manual) 64 % Lymphocytes % Not Reportable Lymphocytes % (Manual) 26 % Monocytes % Not Reportable Monocytes % (Manual) 9 % Eosinophils % Not Reportable Eosinophils % (Manual) 1 % Basophils % Not Reportable Neutrophils # Not Reportable Neutrophils # (Manual) 8.83 H (1.3-7.7) k/uL Lymphocytes # Not Reportable Lymphocytes # (Manual) 3.59 (1.0-4.8) k/uL Monocytes # Not Reportable Monocytes # (Manual) 1.24 H (0-1.0) k/uL Eosinophils # Not Reportable Eosinophils # (Manual) 0.14 (0-0.7) k/uL Basophils # Not Reportable Nucleated RBCs 0 (0-0) /100 WBC Manual Slide Review Performed Hypochromasia Slight Poikilocytosis (manual Present Anisocytosis Moderate Microcytosis Slight Macrocytosis Slight Ovalocytes Present Sodium 142 (137-145) mmol/L Potassium 4.2 (3.5-5.1) mmol/L Chloride 105 (98-107) mmol/L Carbon Dioxide 27 (22-30) mmol/L Anion Gap 10 mmol/L BUN 19 (9-20) mg/dL Creatinine 0.79 (0.66-1.25) mg/dL Est GFR (CKD-EPI)AfAm >90 (>60 ml/min/1.73 sqM) Est GFR (CKD-EPI)NonAf >90 (>60 ml/min/1.73 sqM) Glucose 98 (74-99) mg/dL Calcium 9.8 (8.4-10.2) mg/dL Total Bilirubin 0.9 (0.2-1.3) mg/dL AST 25 (17-59) U/L ALT 32 (21-72) U/L Alkaline Phosphatase 390 H (38-126) U/L Total Protein 7.5 (6.3-8.2) g/dL Albumin 4.8 (3.5-5.0) g/dL Disposition Clinical Impression: Enlarged lymph node Disposition: HOME SELF-CARE Condition: Good Instructions (If sedation given, give patient instructions): Lymphadenopathy (ED) Additional Instructions: Follow-up with your biopsy on Sunday. Return to the emergency department if any alarming signs or symptoms occur. Is patient prescribed a controlled substance at d/c from ED?: No Referrals: Siria Hastings MD [Primary Care Provider] - 1-2 days Time of Disposition: 13:04
[2019-07-30 12:33] LABS: ALT 32 U/L (21-72); AST 25 U/L (17-59); African American GFR (CKD) >90 (>60 ml/min/1.73 sqM); Albumin 4.8 g/dL (3.5-5.0); Alkaline Phosphatase 390 U/L (38-126); Anion Gap 10 mmol/L; Blood Urea Nitrogen 19 mg/dL (9-20); Calcium 9.8 mg/dL (8.4-10.2); Carbon Dioxide 27 mmol/L (22-30); Chloride 105 mmol/L (98-107); Glucose 98 mg/dL (74-99); Potassium 4.2 mmol/L (3.5-5.1); Sodium 142 mmol/L (137-145); Total Bilirubin 0.9 mg/dL (0.2-1.3); Total Protein 7.5 g/dL (6.3-8.2)
[2019-07-30 12:41] LABS: Anisocytosis Moderate; HCT 43.5 % (39.0-53.0); HGB 13.9 gm/dL (13.0-17.5); Hypochromasia Slight; MCH 30.1 pg (25.0-35.0); MCHC 31.9 g/dL (31.0-37.0); MCV 94.5 fL (80.0-100.0); Macrocytosis Slight; Mean Platelet Volume 8.6; Microcytosis Slight; Platelet Count 294 k/uL (150-450); RDW 20.9 % (11.5-15.5); WBC 13.8 k/uL (3.8-10.6)
[2019-07-30 13:04] LABS: Eosinophils # (M) 0.14 k/uL (0-0.7); Lymphocytes # (M) 3.59 k/uL (1.0-4.8); Monocytes # (M) 1.24 k/uL (0-1.0); Neutrophils % (M) 64 %; Nucleated Red Blood Cells 0 /100 WBC (0-0); Total Cells Counted 100
[2019-07-30 13:05] LABS: Ovalocytes Present; Poikilocytosis (M) Present
[2019-07-30 14:08] VITALS: BP 131/81; PULSE 72
== END 2019-07-30 14:07 | disposition home or self-care (01) ==
LOC: EC 10:40
DX: R59.9 Enlarged lymph nodes, unspecified (principal); M54.2 Cervicalgia; M79.629 Pain in unspecified upper arm; E11.42 Type 2 diabetes mellitus with diabetic polyneuropathy; K21.9 Gastro-esophageal reflux disease without esophagitis; I10 Essential (primary) hypertension; N42.9 Disorder of prostate, unspecified; F32.9 Major depressive disorder, single episode, unspecified; Z87.891 Personal history of nicotine dependence; Z88.0 Allergy status to penicillin; Z88.1 Allergy status to other antibiotic agents; Z88.2 Allergy status to sulfonamides; Z88.6 Allergy status to analgesic agent; Z79.1 Long term (current) use of non-steroidal anti-inflammatories (NSAID); Z79.51 Long term (current) use of inhaled steroids; Z79.84 Long term (current) use of oral hypoglycemic drugs; Z79.899 Other long term (current) drug therapy; Z85.3 Personal history of malignant neoplasm of breast; Z85.840 Personal history of malignant neoplasm of eye; Z87.39 Personal history of other diseases of the musculoskeletal system and connective tissue; Z86.69 Personal history of other diseases of the nervous system and sense organs; Z98.890 Other specified postprocedural states
CPT/HCPCS: 36415; 80053; 85025; 99284; 96374; J1170

== ENCOUNTER → 2019-08-01 | Day surgery (SDC) | payer MEDICARE ==
[2019-07-30 15:19] VITALS: BMI 27.1
[~2019-08-01] MED LIST changes: -CLINDAMYCIN 900 MG in DEXTROSE 5% IN WATER 50 ML IVPB ONE; -HEPARIN SODIUM,PORCINE 5,000 UNIT/ML 1 ML VIAL SQ ONE; +LACTATED RINGERS 1,000 ML IV SCH; -LEVOFLOXACIN 500MG-D5W PMX 500 MG in DEXTROSE/WATER 1 100ML.BAG IVPB ONE; +LIDOCAINE 1% INJ 10MG/ML (20 ML MDV) ONE; +MIDAZOLAM 2 MG/2 ML VIAL IVP ONE; +PROPOFOL 10 MG/ML 20 ML VIAL IV ONE
[2019-08-01 07:22] VITALS: TEMP 97.7
[2019-08-01 07:26] LABS: Glucose,Whole Blood 117 mg/dL (75-99)
--- NOTE | 2019-08-01 07:58 | P.GSHP ---
History of Present Illness H&P Date: 08/01/19 Chief Complaint: Gastritis This is a 69-year-old male with complaints of epigastric dull pain. Patient presents for gastritis. He presents today for EGD. Past Medical History Past Medical History: Cancer, Diabetes Mellitus, GERD/Reflux, Hearing Disorder / Deafness, Hypertension, Osteoarthritis (OA), Prostate Disorder, Sleep Apnea/CPAP/BIPAP Additional Past Medical History / Comment(s): Current neck pain, pain in lymph nodes/armpits. Optic migraines, diverticulosis, kidney stones, neurpathy hands & feet, low BACK PAIN. 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 CPAP use, enlarged prostate, bilateral hearing aid use, wears brace on bilateral legs. History of Any Multi-Drug Resistant Organisms: None Reported Date of last positivie culture/infection: none MDRO Source:: none Past Surgical History: Breast Surgery, Cholecystectomy, Heart Catheterization, Hernia Repair, Joint Replacement, Orthopedic Surgery Additional Past Surgical History / Comment(s): Laparoscopic Mireya Fundoplasty, CYSTOSCOPY AND LITHOTRIPSY LEfT URETERAL STENT-SINCE REMOVED. RIGHT BREAST BIOPSY, TOTAL LEFT KNEE REPLACEMENT, LEFT FOOT SURGERY, BILATERAL INGUINAL HERNIA REPAIR, PERCUTANEOUS NEPHROLITHOTOMY, BILATERAL hand surgery, back procedure for nerve endings and cortisone injections, ESOPHGEAL DILATION, eye surgery to remove tumors, LUMPECTOMY RIGHT BREAST. Past Anesthesia/Blood Transfusion Reactions: No Reported Reaction Additional Past Anesthesia/Blood Transfusion Reaction / Comment(s): NEVER HAD ANY BLOOD TRANSFUSIONS. Past Psychological History: Depression Smoking Status: Former smoker Past Alcohol Use History: None Reported Additional Past Alcohol Use History / Comment(s): STARTED SMOKING AT AGE 12, S MOKED 1 PPD, QUIT 2012. Past Drug Use History: None Reported - Past Family History Father Family Medical History: No Reported History Mother Family Medical History: Liver Disease Additional Family Medical History / Comment(s): Mother had hepatitis. Medications and Allergies Home Medications Medication Instructions Recorded Confirmed Type Temazepam [Restoril] 30 mg PO HS 03/05/15 08/01/19 History Citalopram Hydrobromide [CeleXA] 40 mg PO DAILY 02/05/16 08/01/19 History Morphine Sulfate Ir [MSIR] 15 mg PO BID PRN 02/05/16 08/01/19 History Levocetirizine Dihydrochloride 5 mg PO HS 07/13/16 08/01/19 History [Xyzal] Tamsulosin [Flomax] 0.4 mg PO HS 07/13/16 08/01/19 History metFORMIN HCL [Glucophage Xr] 500 mg PO BID 11/27/16 08/01/19 History Omeprazole 40 mg PO BID 12/22/16 07/30/19 History ALPRAZolam [Xanax] 0.25 mg PO DAILY PRN 02/26/18 07/30/19 History Fluticasone Nasal [place] [Flonase 2 spr EA NOSTRIL BID 03/26/18 08/01/19 History Nasal [place]] Gabapentin [Neurontin] 300 mg PO HS 10/26/18 08/01/19 History Loratadine [Claritin] 10 mg PO DAILY 01/15/19 08/01/19 History Lisinopril [Zestril] 5 mg PO QAM 04/29/19 08/01/19 History Docusate [Colace] 100 mg PO DAILY PRN 07/21/19 07/30/19 History Furosemide [Lasix] 20 mg PO DAILY PRN 07/21/19 08/01/19 History Ibuprofen [Motrin] 600 mg PO Q8HR PRN 07/30/19 08/01/19 History Allergies Allergy/AdvReac Type Severity Reaction Status Date / Time cephalexin monohydrate Allergy Rash/Hives Verified 08/01/19 07:11 [From Keflex] clarithromycin [From Biaxin] Allergy Unknown Verified 08/01/19 07:11 gentamicin [Gentamicin] Allergy Unknown Verified 08/01/19 07:11 naproxen Allergy Unknown Verified 08/01/19 07:11 Penicillins Allergy Anaphylaxis Verified 08/01/19 07:11 Sulfa (Sulfonamide Allergy Rash/Hives Verified 08/01/19 07:11 Antibiotics) promethazine AdvReac Nausea & Verified 08/01/19 07:11 Vomiting Surgical - Exam Vital Signs Temp Pulse Resp BP Pulse Ox 97.7 F 69 18 127/68 98 08/01/19 07:21 08/01/19 07:21 08/01/19 07:21 08/01/19 07:21 08/01/19 07:21 - General well developed, well nourished, no distress - Eyes PERRL - ENT normal pinna - Neck no masses - Respiratory normal expansion - Cardiovascular Rhythm: regular - Abdomen Abdomen: soft, non tender Results - Labs Abnormal Lab Results - Last 24 Hours (Table) 08/01/19 Range/Units 07:21 POC Glucose (mg/dL) 117 H (75-99) mg/dL Assessment and Plan Assessment: Gastritis. We'll perform EGD.
[2019-08-01 08:40] VITALS: BP 149/81; PULSE 57; RESP 18
--- NOTE | 2019-08-01 08:45 | P.OP ---
Description of Procedure: Date of Procedure: 08/01/19 Preoperative Diagnosis: Gastritis Postoperative Diagnosis: Mild antral gastritis No evidence of esophagitis Retained gastric food Procedure(s) Performed: EGD Anesthesia: MAC Surgeon: Juan Patel Pathology: other (Antrum) Condition: stable Disposition: PACU Description of Procedure: The patient's placed on the endoscopy table in the lateral position. He received IV sedation. The gastroscope placed oropharynx passed in the esophagus and into the stomach. Scope then placed through the pylorus. First and second portion of the duodenum appeared normal. Scope was then brought back and the antrum this. Mildly inflamed. A biopsies performed. There was a large amount of retained gastric food. Scope was then retroflexed and the remainder some appeared normal. There was a small hiatal hernia. The GE junction was at 39 cm. The distal esophagus. Normal. The proximal esophagus appeared normal. Scope withdrawn for patient. Additional CC's: Siria Hastings
== END | disposition home or self-care (01) ==
LOC: ORWHC2ENDO 06:55
PROVIDERS: ATTEND Surgery
DX: K29.70 Gastritis, unspecified, without bleeding (principal); K31.9 Disease of stomach and duodenum, unspecified; K21.9 Gastro-esophageal reflux disease without esophagitis; I10 Essential (primary) hypertension; G43.B0 Ophthalmoplegic migraine, not intractable; E11.9 Type 2 diabetes mellitus without complications; G47.33 Obstructive sleep apnea (adult) (pediatric); H91.90 Unspecified hearing loss, unspecified ear; M19.90 Unspecified osteoarthritis, unspecified site; G89.29 Other chronic pain; M54.5 Low back pain; F32.9 Major depressive disorder, single episode, unspecified; E11.40 Type 2 diabetes mellitus with diabetic neuropathy, unspecified; Z87.442 Personal history of urinary calculi; Z87.891 Personal history of nicotine dependence; Z88.1 Allergy status to other antibiotic agents; Z88.0 Allergy status to penicillin; Z88.2 Allergy status to sulfonamides; Z88.6 Allergy status to analgesic agent; Z88.8 Allergy status to other drugs, medicaments and biological substances; Z79.1 Long term (current) use of non-steroidal anti-inflammatories (NSAID); Z79.84 Long term (current) use of oral hypoglycemic drugs; Z79.899 Other long term (current) drug therapy; Z85.828 Personal history of other malignant neoplasm of skin; Z85.3 Personal history of malignant neoplasm of breast; Z97.4 Presence of external hearing-aid; Z87.19 Personal history of other diseases of the digestive system; Z99.89 Dependence on other enabling machines and devices; Z90.49 Acquired absence of other specified parts of digestive tract; Z96.652 Presence of left artificial knee joint; Z83.79 Family history of other diseases of the digestive system
CPT/HCPCS: 88305; 43239; J2250; J2001; J2704

== ENCOUNTER → 2019-08-01 | Day surgery (SDC) | payer MEDICARE ==
[2019-08-01 10:44] VITALS: RESP 16; TEMP 97.6; BMI 26.4
--- NOTE | 2019-08-01 13:09 | USB ---
EXAMINATION TYPE: US breast needle core LT DATE OF EXAM: 08/01/2019 COMPARISON: 07/18/2019 and 07/02/2019 CLINICAL HISTORY: N63.4 LUMP. PROCEDURE/TECHNIQUE: The procedure of ultrasound guided core biopsy was explained to the patient. Benefits, alternatives, and risks were discussed. An informed consent was then obtained. Preprocedural timeout was performed. The patient was placed in supine positioning for imaging and for the procedure. The overlying skin was prepped and draped in usual sterile fashion. 15 cc of 1% lidocaine was used as anesthetic into the skin and subcutaneous tissue up to a 2.4 cm heterogenous solid masslike area in the left axilla. Under ultrasound guidance, a 14-gauge biopsy gun device was used to obtain 3 core samples mass. Following this, a marker was left at the site of biopsy. The patient tolerated the procedure well without any immediate complication. The patient was kept in the radiology department for short stay after the procedure and then discharged home in stable condition. IMPRESSION: Successful ultrasound-guided biopsy of a palpable masslike area within the left axilla measuring 2.4 cm. Pathology Results: Benign LEFT AXILLA, ULTRASOUND GUIDED CORE BIOPSY: Benign lymph node tissue with variable fat replacement. See note. Recommendation Surgical consult of the left breast. Clinical management of this painful lymph node per patient. It is mildly enlarged but appear to maintain a fatty hilum with no no abnormal thickening. MTDD
[2019-08-01 13:45] VITALS: BP 154/79; PULSE 58
== END ==
LOC: RADUSWWP 09:03
PROVIDERS: ATTEND Surgery
DX: N63.42 Unspecified lump in left breast, subareolar (principal)
CPT/HCPCS: 88305; 19083; A4648; J2001

== ENCOUNTER 2019-08-14 14:01 | Emergency (ER) | payer MEDICARE ==
[2019-08-14] MEDS ORDERED: Acetaminophen-Codeine 300-30mg TAB PO STA (14:31)
--- NOTE | 2019-08-14 14:35 | ED ---
General Adult HPI - General Chief complaint: Recheck/Abnormal Lab/Rx Stated complaint: pain from biopsy Time Seen by Provider: 08/14/19 14:07 Source: patient Mode of arrival: ambulatory Limitations: no limitations - History of Present Illness Initial comments: Patient is 69-year-old male presenting to emergency department with a chief complaint of left axilla pain. Patient reports 2 weeks ago he had a lymph node biopsy the left axilla. Patient reports pathology results yielded no indication for cancer. Patient reports since the procedure he has developed left-sided pain has gradually increasing severity. Patient reports the pain is exacerbated with palpation of the region. Patient denies any night sweats fevers or chills. Patient does report some very mild swelling in the region. Patient reports she went [facility] the [facility] today after he had a mammogram performed and was sent to the ED. - Related Data Home Medications Medication Instructions Recorded Confirmed Temazepam [Restoril] 30 mg PO HS 03/05/15 08/14/19 Citalopram Hydrobromide [CeleXA] 40 mg PO DAILY 02/05/16 08/14/19 Morphine Sulfate Ir [MSIR] 15 mg PO BID PRN 02/05/16 08/14/19 Levocetirizine Dihydrochloride 5 mg PO HS 07/13/16 08/14/19 [Xyzal] Tamsulosin [Flomax] 0.4 mg PO HS 07/13/16 08/14/19 metFORMIN HCL [Glucophage Xr] 500 mg PO BID 11/27/16 08/14/19 ALPRAZolam [Xanax] 0.25 mg PO DAILY PRN 02/26/18 08/14/19 Fluticasone Nasal [place] [Flonase 2 spr EA NOSTRIL BID 03/26/18 08/14/19 Nasal [place]] Gabapentin [Neurontin] 300 mg PO HS PRN 10/26/18 08/14/19 Loratadine [Claritin] 10 mg PO DAILY 01/15/19 08/14/19 Diclofenac Sodium Gel [Voltaren 2 gm TOPICAL QID 08/01/19 08/14/19 Gel] Hyoscyamine Sulfate [Levsin] 0.125 mg PO Q12HR PRN 08/01/19 08/14/19 Insulin Glargine,Hum.[email or web address].anlog See Protocol SQ DAILY 08/01/19 08/14/19 [[place] Solostar] Lisinopril [Prinivil] 5 mg PO DAILY 08/01/19 08/14/19 Omeprazole 40 mg PO BID 08/01/19 08/14/19 Fexofenadine HCl [Neela Allergy] 180 mg PO DAILY PRN 08/14/19 08/14/19 Ibuprofen [Motrin] 800 mg PO HS PRN 08/14/19 08/14/19 Loratadine-Pseudoeph 10-240 mg 1 tab PO DAILY PRN 08/14/19 08/14/19 [Claritin-D 24 Hour] Allergies Allergy/AdvReac Type Severity Reaction Status Date / Time cephalexin monohydrate Allergy Rash/Hives Verified 08/14/19 14:48 [From Keflex] clarithromycin [From Biaxin] Allergy Unknown Verified 08/14/19 14:48 gentamicin [Gentamicin] Allergy Unknown Verified 08/14/19 14:48 naproxen Allergy Unknown Verified 08/14/19 14:48 Penicillins Allergy Anaphylaxis Verified 08/14/19 14:48 Sulfa (Sulfonamide Allergy Rash/Hives Verified 08/14/19 14:48 Antibiotics) promethazine AdvReac Nausea & Verified 08/14/19 14:48 Vomiting Review of Systems ROS Statement: Those systems with pertinent positive or pertinent negative responses have been documented in the HPI. ROS Other: All systems not noted in ROS Statement are negative. Past Medical History Past Medical History: Cancer, Diabetes Mellitus, GERD/Reflux, Hearing Disorder / Deafness, Hypertension, Osteoarthritis (OA), Prostate Disorder, Sleep Apnea/CPAP/BIPAP Additional Past Medical History / Comment(s): Current neck pain, pain in lymph nodes/armpits. Optic migraines, diverticulosis, kidney stones, neurpathy hands & feet, low BACK PAIN. 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 CPAP use, enlarged prostate, bilateral hearing aid use, wears brace on bilateral legs. History of Any Multi-Drug Resistant Organisms: None Reported Date of last positivie culture/infection: none MDRO Source:: none Past Surgical History: Breast Surgery, Cholecystectomy, Heart Catheterization, Hernia Repair, Joint Replacement, Orthopedic Surgery Additional Past Surgical History / Comment(s): EGD this am 08/01/19. Laparoscopic Mireya Fundoplasty, CYSTOSCOPY AND LITHOTRIPSY LEfT URETERAL STENT-SINCE REMOVED. RIGHT BREAST BIOPSY, TOTAL LEFT KNEE REPLACEMENT, LEFT FOOT SURGERY, BILATERAL INGUINAL HERNIA REPAIR, PERCUTANEOUS NEPHROLITHOTOMY, BILATERAL hand surgery, back procedure for nerve endings and cortisone injections, ESOPHGEAL DILATION, eye surgery to remove tumors, LUMPECTOMY RIGHT BREAST. Past Anesthesia/Blood Transfusion Reactions: No Reported Reaction Additional Past Anesthesia/Blood Transfusion Reaction / Comment(s): NEVER HAD ANY BLOOD TRANSFUSIONS. Past Psychological History: Anxiety, Depression Smoking Status: Former smoker Past Alcohol Use History: None Reported Past Drug Use History: None Reported - Past Family History Father Family Medical History: No Reported History Mother Family Medical History: Liver Disease Additional Family Medical History / Comment(s): Mother had hepatitis. General Exam Limitations: no limitations General appearance: alert, in no apparent distress Head exam: Present: atraumatic, normocephalic, normal inspection Eye exam: Present: normal appearance Pupils: Present: normal accommodation ENT exam: Present: normal exam, normal oropharynx, mucous membranes moist Neck exam: Present: normal inspection, full ROM Respiratory exam: Present: normal lung sounds bilaterally Cardiovascular Exam: Present: regular rate, normal rhythm, normal heart sounds Extremities exam: Present: full ROM (Full range of motion the left upper extremity.), tenderness (Tenderness to palpation to left axilla.), normal capillary refill. Absent: normal inspection ([place] mild swelling in the left axilla with an area of ecchymosis measuring approximately 4 cm.) Back exam: Present: normal inspection, full ROM Neurological exam: Present: alert, oriented X3 Psychiatric exam: Present: normal affect, normal mood Skin exam: Present: warm, dry, intact, normal color Course Vital Signs 08/14/19 08/14/19 14:03 15:35 Temperature 97.9 F 97.6 F Pulse Rate 72 59 L Respiratory 16 18 Rate Blood Pressure 167/84 148/88 O2 Sat by Pulse 96 95 Oximetry Medical Decision Making - Medical Decision Making Patient is 69-year-old male presenting to the emergency department with left axillary tenderness. Physical examination there is some ecchymosis in the left axilla which is suspected to be from the biopsy. Otherwise there appears to be no significant swelling in the left axilla when compared to right. No palpable masses. Patient given a Tylenol 3. Patient does report some improvement in his symptoms. Patient states he already contacted Dr. balderas , who was the ordering physician for the biopsy. The surgeon told him to follow with primary care regarding the pain. the primary care referred him back to the physician who performed the biopsy who then sent him to the ED. Patient is frustrated because nobody is addressing the underlying cause of the pain. Patient had a recent ultrasound performed in the region which was negative for postop competitions. I offered a repeat ultrasound at this time but he declined. I advised patient pain is most likely result due to the procedure. I suspect patient has postoperative pain. I advised the patient to go back to the ordering surgeon to seek management. Strict return parameters were thoroughly discussed the patient was understanding and agreeable. Case discussed with physician. Disposition Clinical Impression: Postoperative pain Disposition: HOME SELF-CARE Condition: Stable Instructions (If sedation given, give patient instructions): Pain Management in Older Adults (DC) Additional Instructions: Please follow up with Dr. Balderas. Please return to emergency department if symptoms worsen. Is patient prescribed a controlled substance at d/c from ED?: No Referrals: Siria Hastings MD [Primary Care Provider] - 1-2 days Time of Disposition: 15:17
[2019-08-14 15:36] VITALS: BP 148/88; PULSE 59; RESP 18; TEMP 97.6
== END 2019-08-14 15:39 | disposition home or self-care (01) ==
LOC: EC 14:01
DX: G89.18 Other acute postprocedural pain (principal); R22.32 Localized swelling, mass and lump, left upper limb; R58 Hemorrhage, not elsewhere classified; M79.89 Other specified soft tissue disorders; E11.42 Type 2 diabetes mellitus with diabetic polyneuropathy; K21.9 Gastro-esophageal reflux disease without esophagitis; H91.93 Unspecified hearing loss, bilateral; I10 Essential (primary) hypertension; N40.0 Benign prostatic hyperplasia without lower urinary tract symptoms; G47.30 Sleep apnea, unspecified; M19.90 Unspecified osteoarthritis, unspecified site; M54.2 Cervicalgia; F32.9 Major depressive disorder, single episode, unspecified; F41.9 Anxiety disorder, unspecified; Z87.891 Personal history of nicotine dependence; Z88.0 Allergy status to penicillin; Z88.1 Allergy status to other antibiotic agents; Z88.2 Allergy status to sulfonamides; Z88.4 Allergy status to anesthetic agent; Z88.6 Allergy status to analgesic agent; Z79.4 Long term (current) use of insulin; Z79.1 Long term (current) use of non-steroidal anti-inflammatories (NSAID); Z79.51 Long term (current) use of inhaled steroids; Z79.899 Other long term (current) drug therapy; Z85.3 Personal history of malignant neoplasm of breast; Z85.840 Personal history of malignant neoplasm of eye; Z86.69 Personal history of other diseases of the nervous system and sense organs; Z98.890 Other specified postprocedural states; Z96.652 Presence of left artificial knee joint; Z97.4 Presence of external hearing-aid; Z99.89 Dependence on other enabling machines and devices; Z53.20 Procedure and treatment not carried out because of patient's decision for unspecified reasons
CPT/HCPCS: 99283

== ENCOUNTER → 2019-09-03 | Outpatient (CLI) | payer MEDICARE ==
--- NOTE | 2019-09-04 08:02 | US ---
EXAMINATION TYPE: US thyroid st tissue head/neck DATE OF EXAM: 09/03/2019 COMPARISON: NONE CLINICAL HISTORY: E0.4.1 THYROID NODULE. nodules seen on MRI GLAND SIZE: Right Lobe: 6.4 x 2.5 x 3.4 cm Overall Parenchyma: heterogenous Left Lobe: 4.8 x 2.0 x 2.5 cm Overall Parenchyma: heterogeneous Isthmus Thickness: 0.7 cm NODULES RIGHT: # of nodules measured on right: 1 1. 1.9 X 1.2 x 1.2 cm hypoechoic solid nodule at the lower pole with well-defined margins. This no dule is taller than wide and shows intranodular vascularity. Prior size: [employer] LEFT: # of nodules measured on left: 0 ISTHMUS: # of nodules measured in the isthmus: 0 Bilateral neck scanned, no evidence of lymphadenopathy. IMPRESSION: Enlarged right thyroid lobe with underlying nonspecific solid nodule. The need to biopsy should be ma de on a clinical basis.
== END | disposition home or self-care (01) ==
LOC: RADUSWWP 16:12
PROVIDERS: ATTEND Family Medicine
DX: E04.9 Nontoxic goiter, unspecified (principal); E04.1 Nontoxic single thyroid nodule
CPT/HCPCS: 76536

== ENCOUNTER → 2019-09-30 | Outpatient (CLI) | payer MEDICARE ==
--- NOTE | 2019-09-30 12:12 | NM ---
EXAMINATION TYPE: NM thyroid image only DATE OF EXAM: 09/30/2019 COMPARISON: 02/04/2016, ultrasound 09/03/2019 HISTORY: Abnormal ultrasound TECHNIQUE: After the intravenous administration of 9.54 mCi Tc 99m Sodium Pertechnetate. FINDINGS: There is a cold nodule corresponding to the 1.9 cm nodule seen within the right lobe of the thyroid. Left lobe demonstrates homogeneous uptake. IMPRESSION: 1. Cold nodule mid to lower pole right thyroid corresponds to the ultrasound abnormality..
== END | disposition home or self-care (01) ==
LOC: RADNMMAIN 10:54
PROVIDERS: ATTEND Surgery
DX: E04.1 Nontoxic single thyroid nodule (principal)
CPT/HCPCS: 78013; A9512

== ENCOUNTER 2019-10-02 12:30 | Day surgery (SDC) | payer MEDICARE ==
[2019-10-02] MEDS ORDERED: ALPRAZolam 0.25 MG TAB PO ONE (12:50)
[2019-10-02 13:00] VITALS: TEMP 97.6
[2019-10-02 13:29] LABS: Glucose,Whole Blood 89 mg/dL (75-99)
--- NOTE | 2019-10-02 14:09 | US ---
ULTRASOUND GUIDED FNA THYROID BIOPSY: CLINICAL HISTORY: Right thyroid nodule FINDINGS: The procedure was explained to the patient. The risks, complications, benefits and alternatives were discussed and any questions were answered. Informed consent was obtained. Patient was placed supin e on the ultrasound table and prepped and draped in the usual sterile fashion. Utilizing a 25 gauge needle, five passes were made into the requested right thyroid nodule. Patient was stable throughout the procedure. Pathology is pending. All elements of maximal barrier technique were utilized. IMPRESSION: 1. Successful ultrasound guided FNA thyroid biopsy.
[2019-10-02 14:30] VITALS: BP 137/76; PULSE 63; RESP 16
== END 2019-10-02 14:20 | disposition home or self-care (01) ==
LOC: RADPROMAIN 12:30
PROVIDERS: ATTEND Surgery
DX: E04.1 Nontoxic single thyroid nodule (principal)
CPT/HCPCS: 10005; 88173; 88305

== ENCOUNTER → 2020-03-30 | Outpatient (CLI) | payer MEDICARE ==
--- NOTE | 2020-03-30 13:44 | US ---
EXAMINATION TYPE: US thyroid st tissue head/neck DATE OF EXAM: 03/30/2020 COMPARISON: US, nuc med CLINICAL HISTORY: E04.1 thyroid nodule. GLAND SIZE: Right Lobe: 4.8 x 3.0 x 2.6 cm Overall Parenchyma: heterogenous Left Lobe: 5.2 x 2.5 x 2.3 cm Overall Parenchyma: heterogeneous Isthmus Thickness: 0.4 cm NODULES RIGHT: # of nodules measured on right: 1. 1.3 X 1.0 x 1.4 cm hypoechoic solid nodule at the lower pole with irregular margins. This nodul e is wider than tall and shows no intranodular vascularity. Prior size: 1.9 X 1.2 x 1.2cm 2. 0.8 X 0.5 x 0.8 cm isoechoic solid nodule at the upper pole with well-defined margins. This nod ule is wider than tall and shows no intranodular vascularity. No prior LEFT: # of nodules measured on left: 0 ISTHMUS: # of nodules measured in the isthmus: 0 Bilateral neck scanned, no evidence of lymphadenopathy. Subcentimeter nodules seen bilaterally. IMPRESSION: Previous large thyroid nodule is diminished in size over the interval. No enlarging nodules greater t gómez 1 cm are present.
== END | disposition home or self-care (01) ==
LOC: RADUSWWP 08:54
PROVIDERS: ATTEND Surgery
DX: E04.1 Nontoxic single thyroid nodule (principal)
CPT/HCPCS: 76536

== ENCOUNTER 2020-04-14 12:36 | Emergency (ER) | payer MEDICARE ==
[2020-04-14 12:42] VITALS: RESP 16
[2020-04-14] MEDS ORDERED: SODIUM CHLORIDE 0.9% 500 ML 500 ML IV STA (13:09)
[2020-04-14] MEDS ORDERED: KETOROLAC 30 MG/ML 1 ML VIAL IVP STA (13:09)
--- NOTE | 2020-04-14 13:23 | ED ---
General Adult HPI - General Chief complaint: Abdominal Pain Stated complaint: abd pain/leg pain Time Seen by Provider: 04/14/20 12:40 Source: patient, RN notes reviewed, old records reviewed Mode of arrival: wheelchair Limitations: no limitations - History of Present Illness Initial comments: This is a 70-year-old male who presents emergency Department with a month-long history of lower abdominal pain. Patient states she was a stronger on the left than the right but today is more on the right than the left. Patient states 3 weeks to 1 month ago he was at the other hospital in [facility] and did have a CAT scan. Patient states since then he's seen Dr. Patel and he was unable to determine what the pain was from. Patient denies any nausea or vomiting. Patient denies any diarrhea or constipation. Patient denies any fever chills. Patient denies any dysuria hematuria urinary frequency. Patient states he is on morphine every morning. - Related Data Home Medications Medication Instructions Recorded Confirmed Temazepam [Restoril] 30 mg PO HS 03/05/15 10/02/19 Citalopram Hydrobromide [CeleXA] 40 mg PO DAILY 02/05/16 10/02/19 Morphine Sulfate Ir [MSIR] 15 mg PO BID PRN 02/05/16 10/02/19 Levocetirizine Dihydrochloride 5 mg PO HS 07/13/16 10/02/19 [Xyzal] Tamsulosin [Flomax] 0.4 mg PO HS 07/13/16 10/02/19 metFORMIN HCL [Glucophage Xr] 500 mg PO BID 11/27/16 10/02/19 ALPRAZolam [Xanax] 0.25 mg PO DAILY PRN 02/26/18 10/02/19 Fluticasone Nasal [place] [Flonase 2 spr EA NOSTRIL BID 03/26/18 10/02/19 Nasal [place]] Gabapentin [Neurontin] 300 mg PO HS PRN 10/26/18 10/02/19 Loratadine [Claritin] 10 mg PO DAILY 01/15/19 10/02/19 Hyoscyamine Sulfate [Levsin] 0.125 mg PO Q12HR PRN 08/01/19 10/02/19 Insulin Glargine,Hum.rec.anlog See Protocol SQ DAILY 08/01/19 10/02/19 [Ysabel Morales] Omeprazole 40 mg PO BID 08/01/19 10/02/19 lisinopriL [Prinivil] 5 mg PO DAILY 08/01/19 10/02/19 Ibuprofen [Motrin] 800 mg PO HS PRN 08/14/19 10/02/19 Loratadine-Pseudoeph 10-240 mg 1 tab PO DAILY PRN 08/14/19 10/02/19 [Claritin-D 24 Hour] Allergies Allergy/AdvReac Type Severity Reaction Status Date / Time cephalexin monohydrate Allergy Rash/Hives Verified 04/14/20 12:40 [From Keflex] clarithromycin [From Biaxin] Allergy Unknown Verified 04/14/20 12:40 gentamicin [Gentamicin] Allergy Unknown Verified 04/14/20 12:40 naproxen Allergy Unknown Verified 04/14/20 12:40 Penicillins Allergy Anaphylaxis Verified 04/14/20 12:40 Sulfa (Sulfonamide Allergy Rash/Hives Verified 04/14/20 12:40 Antibiotics) promethazine AdvReac Nausea & Verified 04/14/20 12:40 Vomiting Review of Systems ROS Statement: Those systems with pertinent positive or pertinent negative responses have been documented in the HPI. ROS Other: All systems not noted in ROS Statement are negative. Past Medical History Past Medical History: Cancer, Diabetes Mellitus, GERD/Reflux, Hearing Disorder / Deafness, Hypertension, Osteoarthritis (OA), Prostate Disorder, Sleep Apnea/CPAP/BIPAP Additional Past Medical History / Comment(s): Current neck pain, pain in lymph nodes/armpits. Optic migraines, diverticulosis, kidney stones, neurpathy hands & feet, low BACK PAIN. 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 CPAP use, enlarged prostate, bilateral hearing aid use, wears brace on bilateral legs. History of Any Multi-Drug Resistant Organisms: None Reported Date of last positivie culture/infection: none MDRO Source:: none Past Surgical History: Breast Surgery, Cholecystectomy, Heart Catheterization, Hernia Repair, Joint Replacement, Orthopedic Surgery Additional Past Surgical History / Comment(s): EGD this am 08/01/19. Laparoscopic Mireya Fundoplasty, CYSTOSCOPY AND LITHOTRIPSY LEfT URETERAL STENT-SINCE REMOVED. RIGHT BREAST BIOPSY, TOTAL LEFT KNEE REPLACEMENT, LEFT FOOT SURGERY, BILATERAL INGUINAL HERNIA REPAIR, PERCUTANEOUS NEPHROLITHOTOMY, BILATERAL hand surgery, back procedure for nerve endings and cortisone injections, ESOPHGEAL DILATION, eye surgery to remove tumors, LUMPECTOMY RIGHT BREAST. Past Anesthesia/Blood Transfusion Reactions: No Reported Reaction Additional Past Anesthesia/Blood Transfusion Reaction / Comment(s): NEVER HAD ANY BLOOD TRANSFUSIONS. Past Psychological History: Anxiety, Depression Smoking Status: Former smoker Past Alcohol Use History: None Reported Past Drug Use History: None Reported - Past Family History Father Family Medical History: No Reported History Mother Family Medical History: Liver Disease Additional Family Medical History / Comment(s): Mother had hepatitis. General Exam - General Exam Comments Initial Comments: GENERAL: Patient is well-developed and well-nourished. Patient is nontoxic and well- hydrated and is in no acute distress. ENT: Neck is soft and supple. No significant lymphadenopathy is noted. Oropharynx is clear. Moist mucous membranes. Neck has full range of motion without eliciting any pain. EYES: The sclera were anicteric and conjunctiva were pink and moist. Extraocular movements were intact and pupils were equal round and reactive to light. Eyelids were unremarkable. PULMONARY: Unlabored respirations. Good breath sounds bilaterally. No audible rales rhonchi or wheezing was noted. CARDIOVASCULAR: There is a regular rate and rhythm without any murmurs gallops or rubs. ABDOMEN: Patient's abdomen is mildly distended and there is pain throughout the lower abdomen but no matter where I touch the patient it seems to cause exquisite pain even in his back. Patient states most of his pain is normal for him. SKIN: Skin is clear with no lesions or rashes and otherwise unremarkable. NEUROLOGIC: Patient is alert and oriented x3. Cranial nerves II through XII are grossly intact. Motor and sensory are also intact. Normal speech, volume and content. Symmetrical smile. MUSCULOSKELETAL: Normal extremities with adequate strength and full range of motion. No lower extremity swelling or edema. No calf tenderness. LYMPHATICS: No significant lymphadenopathy is noted PSYCHIATRIC: Normal psychiatric evaluation. Limitations: no limitations Course Vital Signs 04/14/20 12:40 Temperature 98.1 F Pulse Rate 84 Respiratory 16 Rate Blood Pressure 127/70 O2 Sat by Pulse 97 Oximetry Medical Decision Making - Medical Decision Making I spoke with Dr. Patel he wanted the patient to follow-up with him as an outpatient. I reviewed the patient's last CAT scan approximately a month and half ago. Showed no acute abnormality. - Lab Data Result diagrams: 04/14/20 13:30 04/14/20 13:30 Lab Results 04/14/20 04/14/20 04/14/20 Range/Units 13:30 13:30 13:30 WBC 11.1 H (3.8-10.6) k/uL RBC 4.13 L (4.30-5.90) m/uL Hgb 12.6 L (13.0-17.5) gm/dL Hct 39.6 (39.0-53.0) % MCV 95.8 (80.0-100.0) fL MCH 30.4 (25.0-35.0) pg MCHC 31.8 (31.0-37.0) g/dL RDW 20.8 H (11.5-15.5) % Plt Count 270 (150-450) k/uL Neutrophils % 63 % Lymphocytes % 22 % Monocytes % 9 % Eosinophils % 2 % Basophils % 1 % Neutrophils # 6.9 (1.3-7.7) k/uL Lymphocytes # 2.4 (1.0-4.8) k/uL Monocytes # 1.0 (0-1.0) k/uL Eosinophils # 0.3 (0-0.7) k/uL Basophils # 0.1 (0-0.2) k/uL Hypochromasia Slight Anisocytosis Moderate Macrocytosis Slight Sodium 136 L (137-145) mmol/L Potassium 4.4 (3.5-5.1) mmol/L Chloride 104 (98-107) mmol/L Carbon Dioxide 25 (22-30) mmol/L Anion Gap 7 mmol/L BUN 17 (9-20) mg/dL Creatinine 0.72 (0.66-1.25) mg/dL Est GFR (CKD-EPI)AfAm >90 (>60 ml/min/1.73 sqM) Est GFR (CKD-EPI)NonAf >90 (>60 ml/min/1.73 sqM) Glucose 140 H (74-99) mg/dL Plasma Lactic Acid Elvin (0.7-2.0) mmol/L Calcium 9.2 (8.4-10.2) mg/dL Total Bilirubin 0.6 (0.2-1.3) mg/dL AST 26 (17-59) U/L ALT 19 (4-49) U/L Alkaline Phosphatase 399 H (38-126) U/L Total Protein 6.0 L (6.3-8.2) g/dL Albumin 3.9 (3.5-5.0) g/dL Amylase 41 (30-110) U/L Lipase 40 (23-300) U/L Urine Color Yellow Urine Appearance Clear (Clear) Urine pH 5.5 (5.0-8.0) Ur Specific [place] 1.016 (1.001-1.035) Urine Protein Negative (Negative) Urine Glucose (UA) Negative (Negative) Urine Ketones Negative (Negative) Urine Blood Negative (Negative) Urine Nitrite Negative (Negative) Urine Bilirubin Negative (Negative) Urine Urobilinogen <2.0 (<2.0) mg/dL Ur Leukocyte Esterase Small H (Negative) Urine RBC <1 (0-5) /hpf Urine WBC 1 (0-5) /hpf Urine Bacteria Rare H (None) /hpf Urine Mucus Rare H (None) /hpf 04/14/20 Range/Units 13:30 WBC (3.8-10.6) k/uL RBC (4.30-5.90) m/uL Hgb (13.0-17.5) gm/dL Hct (39.0-53.0) % MCV (80.0-100.0) fL MCH (25.0-35.0) pg MCHC (31.0-37.0) g/dL RDW (11.5-15.5) % Plt Count (150-450) k/uL Neutrophils % % Lymphocytes % % Monocytes % % Eosinophils % % Basophils % % Neutrophils # (1.3-7.7) k/uL Lymphocytes # (1.0-4.8) k/uL Monocytes # (0-1.0) k/uL Eosinophils # (0-0.7) k/uL Basophils # (0-0.2) k/uL Hypochromasia Anisocytosis Macrocytosis Sodium (137-145) mmol/L Potassium (3.5-5.1) mmol/L Chloride (98-107) mmol/L Carbon Dioxide (22-30) mmol/L Anion Gap mmol/L BUN (9-20) mg/dL Creatinine (0.66-1.25) mg/dL Est GFR (CKD-EPI)AfAm (>60 ml/min/1.73 sqM) Est GFR (CKD-EPI)NonAf (>60 ml/min/1.73 sqM) Glucose (74-99) mg/dL Plasma Lactic Acid Elvin 1.8 (0.7-2.0) mmol/L Calcium (8.4-10.2) mg/dL Total Bilirubin (0.2-1.3) mg/dL AST (17-59) U/L ALT (4-49) U/L Alkaline Phosphatase (38-126) U/L Total Protein (6.3-8.2) g/dL Albumin (3.5-5.0) g/dL Amylase (30-110) U/L Lipase (23-300) U/L Urine Color Urine Appearance (Clear) Urine pH (5.0-8.0) Ur Specific [place] (1.001-1.035) Urine Protein (Negative) Urine Glucose (UA) (Negative) Urine Ketones (Negative) Urine Blood (Negative) Urine Nitrite (Negative) Urine Bilirubin (Negative) Urine Urobilinogen (<2.0) mg/dL Ur Leukocyte Esterase (Negative) Urine RBC (0-5) /hpf Urine WBC (0-5) /hpf Urine Bacteria (None) /hpf Urine Mucus (None) /hpf Disposition Clinical Impression: Chronic abdominal pain Disposition: HOME SELF-CARE Instructions (If sedation given, give patient instructions): Abdominal Pain (ED) Is patient prescribed a controlled substance at d/c from ED?: No Referrals: Siria Hastings MD [Primary Care Provider] - 1-2 days Time of Disposition: 14:30
[2020-04-14 13:44] LABS: Anisocytosis Moderate; Basophils # (A) 0.1 k/uL (0-0.2); Basophils % (A) 1 %; Eosinophils # (A) 0.3 k/uL (0-0.7); Eosinophils % (A) 2 %; HCT 39.6 % (39.0-53.0); HGB 12.6 gm/dL (13.0-17.5); Hypochromasia Slight; Lymphocytes # (A) 2.4 k/uL (1.0-4.8); Lymphocytes % (A) 22 %; MCH 30.4 pg (25.0-35.0); MCHC 31.8 g/dL (31.0-37.0); MCV 95.8 fL (80.0-100.0); Macrocytosis Slight; Mean Platelet Volume 9.7; Monocytes % (A) 9 %; Neutrophils # (A) 6.9 k/uL (1.3-7.7); Neutrophils % (A) 63 %; Platelet Count 270 k/uL (150-450); RBC 4.13 m/uL (4.30-5.90); RDW 20.8 % (11.5-15.5); WBC 11.1 k/uL (3.8-10.6)
[2020-04-14 13:54] LABS: Appearance,Urine Clear (Clear); Bacteria,Urine Rare /hpf; Bilirubin,Urine Negative (Negative); Blood,Urine Negative (Negative); Color,Urine Yellow; Glucose,Urine (UA) Negative (Negative); Ketones,Urine Negative (Negative); Leukocyte Esterase,Urine Small (Negative); Mucus,Urine Rare /hpf; Nitrite,Urine Negative (Negative); PH, Urine 5.5 (5.0-8.0); Protein,Urine Negative (Negative); RBC,Urine <1 /hpf (0-5); Specific Gravity,Urine 1.016 (1.001-1.035); Urobilinogen,Urine <2.0 mg/dL (<2.0); WBC,Urine 1 /hpf (0-5)
[2020-04-14 14:12] LABS: ALT 19 U/L (4-49); AST 26 U/L (17-59); African American GFR (CKD) >90 (>60 ml/min/1.73 sqM); Albumin 3.9 g/dL (3.5-5.0); Alkaline Phosphatase 399 U/L (38-126); Amylase 41 U/L (30-110); Anion Gap 7 mmol/L; Blood Urea Nitrogen 17 mg/dL (9-20); Calcium 9.2 mg/dL (8.4-10.2); Carbon Dioxide 25 mmol/L (22-30); Chloride 104 mmol/L (98-107); Glucose 140 mg/dL (74-99); Non-African American GFR(CKD) >90 (>60 ml/min/1.73 sqM); Potassium 4.4 mmol/L (3.5-5.1); Sodium 136 mmol/L (137-145); Total Bilirubin 0.6 mg/dL (0.2-1.3)
--- NOTE | 2020-04-14 14:16 | XR ---
EXAMINATION TYPE: XR KUB DATE OF EXAM: 04/14/2020 1:53 PM CLINICAL HISTORY: Right lower abdominal pain. TECHNIQUE: Two Upright KUB images of the abdomen are obtained. COMPARISON: CT July 22, 2018. Abdominal x-ray March 24, 2019 FINDINGS: Scattered gas is seen in non-distended small bowel loops. Gas and fecal material is seen in non-distended colon. There is no visceromegaly, pneumoperitoneum, or abnormal calcification apprecia jeffrey. The lung bases are clear and the osseous structures are intact. IMPRESSION: Overall nonobstructive bowel gas pattern remains present.
[2020-04-14 15:05] VITALS: BP 126/78; PULSE 83; TEMP 98
== END 2020-04-14 15:05 | disposition home or self-care (01) ==
LOC: EC 12:36
DX: G89.29 Other chronic pain (principal); R10.9 Unspecified abdominal pain; K21.9 Gastro-esophageal reflux disease without esophagitis; I10 Essential (primary) hypertension; M19.90 Unspecified osteoarthritis, unspecified site; E11.42 Type 2 diabetes mellitus with diabetic polyneuropathy; N40.0 Benign prostatic hyperplasia without lower urinary tract symptoms; G47.30 Sleep apnea, unspecified; M79.606 Pain in leg, unspecified; G43.809 Other migraine, not intractable, without status migrainosus; F41.9 Anxiety disorder, unspecified; F32.9 Major depressive disorder, single episode, unspecified; Z79.891 Long term (current) use of opiate analgesic; Z79.1 Long term (current) use of non-steroidal anti-inflammatories (NSAID); Z79.890 Hormone replacement therapy; Z79.4 Long term (current) use of insulin; Z79.899 Other long term (current) drug therapy; Z88.1 Allergy status to other antibiotic agents; Z88.6 Allergy status to analgesic agent; Z88.0 Allergy status to penicillin; Z88.2 Allergy status to sulfonamides; Z88.8 Allergy status to other drugs, medicaments and biological substances; Z90.49 Acquired absence of other specified parts of digestive tract; Z99.89 Dependence on other enabling machines and devices; Z85.828 Personal history of other malignant neoplasm of skin; Z85.3 Personal history of malignant neoplasm of breast; Z95.818 Presence of other cardiac implants and grafts; Z96.652 Presence of left artificial knee joint; Z87.891 Personal history of nicotine dependence
CPT/HCPCS: 99284; 96374; 36415; 80053; 82150; 83605; 83690; 85025; 81001; 74018; J1885

== ENCOUNTER → 2020-04-26 | Outpatient (CLI) | payer MEDICARE ==
[2020-04-26 17:16] LABS: African American GFR (CKD) 104.2 (60.0-200.0); Albumin 4.2 g/dL (3.80-4.90); Albumin/Globulin Ratio 2.33 (1.60-3.17); Anion Gap 4.9 mmol/L (4.00-12.00); Calcium 9.6 mg/dL (8.7-10.3); Carbon Dioxide 27.1 mmol/L (21.6-31.8); Chol/HDL Ratio 3.06; Globulin 1.8 g/dL (1.6-3.3); LDL Cholesterol,Calculated 82.8 mg/dL (0.0-131.0); Non-African American GFR(CKD) 89.9 (60.0-200.0); Potassium 4.9 mmol/L (3.5-5.5); Total Bilirubin 0.4 mg/dL (0.3-1.2); VLDL Calculation 16.2 mg/dL (5.00-40.00)
[2020-04-26 19:19] LABS: Microalbumin Creatinine Ratio <30 mg/g Creat (0-30); Urine Creatinine 59.4 mg/dL
[2020-04-26 20:13] LABS: Hemoglobin A1C 7.2 % (4.0-6.0)
== END | disposition home or self-care (01) ==
LOC: LABWHC1 08:12
PROVIDERS: ATTEND Internal Medicine Endocrinology, Diabetes & Metabolism
DX: E11.65 Type 2 diabetes mellitus with hyperglycemia (principal)
CPT/HCPCS: 36415; 80053; 80061; 82043; 82570; 83036; 84443

== ENCOUNTER → 2020-04-28 | Outpatient (CLI) | payer MEDICARE ==
--- NOTE | 2020-04-28 11:52 | FL ---
EXAMINATION TYPE: FL barium swallow w video DATE OF EXAM: 04/28/2020 MODIFIED SWALLOW / DEGLUTITION STUDY CLINICAL HISTORY: Dysphagia for months per patient. Total of 1.12 minutes of fluoroscopic time utiliz ed. Serial spot images saved. TECHNIQUE: Deglutition study is performed utilizing thin liquid barium, barium thick porting, and ba rium coated cracker. COMPARISON: None. FINDINGS: The oral and pharyngeal phases show satisfactory initiation and propagation with all modali ties tested. Satisfactory mastication is seen with solid modalities tested. There is no evidence of penetration or aspiration with any modality tested. No significant pharyngeal residue was appreciate d. IMPRESSION: Normal deglutition study. Please refer to speech therapist notes for further details if necessary.
== END | disposition home or self-care (01) ==
LOC: RADFLMAIN 11:03
PROVIDERS: ATTEND Internal Medicine Gastroenterology
DX: R13.10 Dysphagia, unspecified (principal)
CPT/HCPCS: 74230

== ENCOUNTER 2020-06-30 12:27 | Emergency (ER) | payer MEDICARE ==
[2020-06-30 12:32] VITALS: RESP 18; TEMP 98.7
[2020-06-30] MEDS ORDERED: ORPHENADRINE 30 MG/ML 2 ML VIAL IM STA (12:50)
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
[2020-06-30] MEDS ORDERED: KETOROLAC 15 MG/ML 1 ML VIAL IM STA (12:54)
[2020-06-30] MEDS ORDERED: RX INFO: IV CONTRAST WAS GIVEN 1 EACH MISC MISCELLANE PRN (13:00)
[2020-06-30 13:51] LABS: ALT 22 U/L (4-49); AST 30 U/L (17-59); African American GFR (CKD) >90 (>60 ml/min/1.73 sqM); Albumin 4.1 g/dL (3.5-5.0); Alkaline Phosphatase 538 U/L (38-126); Anion Gap 7 mmol/L; Blood Urea Nitrogen 23 mg/dL (9-20); Calcium 9.4 mg/dL (8.4-10.2); Carbon Dioxide 27 mmol/L (22-30); Chloride 105 mmol/L (98-107); Glucose 119 mg/dL (74-99); Non-African American GFR(CKD) 89 (>60 ml/min/1.73 sqM); Potassium 4.5 mmol/L (3.5-5.1); Sodium 139 mmol/L (137-145); Total Bilirubin 0.7 mg/dL (0.2-1.3); Total Protein 6.6 g/dL (6.3-8.2)
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
[2020-06-30] MEDS ORDERED: HYDROmorphone 1 MG/ML 1 ML SYRINGE IVP STA (14:41)
[2020-06-30 14:47] VITALS: BP 137/86; PULSE 88
== END 2020-06-30 15:08 | disposition home or self-care (01) ==
LOC: EC 12:27
DX: S00.03XA Contusion of scalp, initial encounter (principal); M79.18 Myalgia, other site; F41.9 Anxiety disorder, unspecified; F32.9 Major depressive disorder, single episode, unspecified; E11.40 Type 2 diabetes mellitus with diabetic neuropathy, unspecified; I10 Essential (primary) hypertension; G47.30 Sleep apnea, unspecified; K21.9 Gastro-esophageal reflux disease without esophagitis; Z79.51 Long term (current) use of inhaled steroids; Z79.4 Long term (current) use of insulin; Z79.899 Other long term (current) drug therapy; Z88.1 Allergy status to other antibiotic agents; Z88.0 Allergy status to penicillin; Z88.2 Allergy status to sulfonamides; Z88.6 Allergy status to analgesic agent; Z88.8 Allergy status to other drugs, medicaments and biological substances; Z99.89 Dependence on other enabling machines and devices; Z85.3 Personal history of malignant neoplasm of breast; W19.XXXA Unspecified fall, initial encounter
CPT/HCPCS: 99284 ×2; 96374 ×2; 96372 ×3; 36415; 80053; 72125; 70470; J2360; J1170; J1885; Q9967; 70450; 70460

== ENCOUNTER → 2020-07-07 | Outpatient (CLI) | payer MEDICARE ==
--- NOTE | 2020-07-07 10:55 | P.CONS ---
History of Present Illness - Reason for Consult Consult date: 07/07/20 - Chief Complaint lower back pain - History of Present Illness this is a 70-year-old gentleman with history of chronic lower back pain with no precipitating events. The pain occasionally Occasionally radiates down both lower extremities. he also feels painin the center of his back and the sacrococcygeal junction He also has pain in both knees due to osteoarthritis. The patienthas been seeing Dr. Jackson who has been doing a transforaminal epidural steroid injection on him every 3 months at the L5-S1 level bilaterally. He also had left knee replacement and he has been getting steroid injection on his right knee. Dr. Jackson also put him on 15 mg of immediate release morphine twice a day.the patient states that this regimen of injection every 3 months on his back and daily morphine at least 1 pill every day has been working well for and has made him able to take care of his daily chores. Review of Systems Constitutional: Denies chills, Denies fever Ears, nose, mouth and throat: Denies headache, Denies sore throat Cardiovascular: Denies chest pain, Denies shortness of breath Respiratory: Denies cough Musculoskeletal: Reports as per HPI Neurological: Reports as per HPI Past Medical History Past Medical History: Cancer, COPD, Diabetes Mellitus, GERD/Reflux, Hearing Disorder / Deafness, Hypertension, Osteoarthritis (OA), Prostate Disorder, Sleep Apnea/CPAP/BIPAP Additional Past Medical History / Comment(s): Current neck pain, pain in lymph nodes/armpits. Optic migraines, diverticulosis, kidney stones, neurpathy hands & feet, low BACK PAIN. 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 CPAP use, enlarged prostate, bilateral hearing aid use, wears brace on bilateral legs. History of Any Multi-Drug Resistant Organisms: None Reported Year Discovered:: none MDRO Source:: none Past Surgical History: Breast Surgery, Cholecystectomy, Heart Catheterization, Hernia Repair, Joint Replacement, Orthopedic Surgery Additional Past Surgical History / Comment(s): EGD this am 08/01/19. Laparoscopic Mireya Fundoplasty, CYSTOSCOPY AND LITHOTRIPSY LEfT URETERAL STENT-SINCE REMOVED. RIGHT BREAST BIOPSY, TOTAL LEFT KNEE REPLACEMENT, LEFT FOOT SURGERY, BILATERAL INGUINAL HERNIA REPAIR, PERCUTANEOUS NEPHROLITHOTOMY, BILATERAL hand surgery, back procedure for nerve endings and cortisone injections, ESOPHGEAL DILATION, eye surgery to remove tumors, LUMPECTOMY RIGHT BREAST. Past Anesthesia/Blood Transfusion Reactions: No Reported Reaction Additional Past Anesthesia/Blood Transfusion Reaction / Comm: NEVER HAD ANY BLOOD TRANSFUSIONS. Past Psychological History: Anxiety, Depression Additional Psychological History / Comment(s): . Smoking Status: Former smoker Past Alcohol Use History: None Reported Additional Past Alcohol Use History / Comment(s): STARTED SMOKING AT AGE 12, SMOKED 1 PPD, QUIT 2012. Past Drug Use History: None Reported - Past Family History Father Family Medical History: No Reported History Mother Family Medical History: Liver Disease Additional Family Medical History / Comment(s): Mother had hepatitis. Medications and Allergies Home Medications Medication Instructions Recorded Confirmed Type Temazepam [Restoril] 30 mg PO HS 03/05/15 06/30/20 History Citalopram Hydrobromide [CeleXA] 40 mg PO DAILY 02/05/16 06/30/20 History Morphine Sulfate Ir [MSIR] 15 mg PO BID PRN 02/05/16 06/30/20 History Levocetirizine Dihydrochloride 5 mg PO HS 07/13/16 06/30/20 History [Xyzal] Tamsulosin [Flomax] 0.4 mg PO HS 07/13/16 06/30/20 History metFORMIN HCL [Glucophage Xr] 500 mg PO BID 11/27/16 06/30/20 History Fluticasone Nasal [place] [Flonase 2 spr EA NOSTRIL BID 03/26/18 06/30/20 History Nasal [place]] Gabapentin [Neurontin] 300 mg PO HS PRN 10/26/18 06/30/20 History Hyoscyamine Sulfate [Levsin] 0.125 mg PO Q12HR PRN 08/01/19 06/30/20 History Insulin Glargine,Hum.rec.anlog See Protocol SQ DAILY PRN 08/01/19 06/30/20 History [Toujerryo Solostar] lisinopriL [Prinivil] 5 mg PO DAILY 08/01/19 06/30/20 History Ibuprofen [Motrin] 800 mg PO HS PRN 08/14/19 06/30/20 History Loratadine-Pseudoeph 10-240 mg 1 tab PO DAILY PRN 08/14/19 06/30/20 History [Claritin-D 24 Hour] Diclofenac Sodium Gel [Voltaren 2 gm TOPICAL TID PRN 06/30/20 06/30/20 History Gel] Omeprazole 80 mg PO BID 06/30/20 06/30/20 History Orphenadrine [Norflex] 100 mg PO Q12H #7 tablet.er 06/30/20 Rx Allergies Allergy/AdvReac Type Severity Reaction Status Date / Time cephalexin monohydrate Allergy Rash/Hives Verified 06/30/20 13:52 [From Keflex] clarithromycin [From Biaxin] Allergy Unknown Verified 06/30/20 13:52 gentamicin [Gentamicin] Allergy Unknown Verified 06/30/20 13:52 naproxen Allergy Unknown Verified 06/30/20 13:52 Penicillins Allergy Anaphylaxis Verified 06/30/20 13:52 Sulfa (Sulfonamide Allergy Rash/Hives Verified 06/30/20 13:52 Antibiotics) promethazine AdvReac Nausea & Verified 06/30/20 13:52 Vomiting Physical Exam Vitals: Intake and Output 07/06/20 07/07/20 07/07/20 22:59 06:59 14:59 Other: Weight 77.252 kg - Constitutional General appearance: average body habitus - EENT Eyes: PERRLA ENT: hard of hearing - Neurologic neuro exam of the lower extremities showed decreased but symmetrical knee reflexes and absent ankle reflexes bilaterally. Muscle strength exam of the lower extremities showed mild weakness to 4 out of 5 bilaterally for knee flexion and extension and normal ankle flexion and extension bilaterally. Straight leg raising test negative bilaterally. Mild tenderness in the lumbar paravertebral musculature Neurologic: CNII-XII intact - Psychiatric Psychiatric: A&O x's 3, appropriate affect, intact judgment & insight Results Results: lumbar spine MRI which was done in January 2019 showed moderate to severe right and moderate left foraminal stenosis at the L5-S1 level with contact of the L5 nerve root it also showed left subarticular stenosis with slight contact of the left L2 nerve root Assessment and Plan Plan: this is a 70-year-old gentleman with history of chronic back pain and the neural foraminal stenosis at the L5-S1 level bilaterally. The patient also has also arthritis in the right knee. He has been getting transforaminal epidural steroid injection bilaterally at the L5-S1 level by Dr. Jackson every 3 months plus morphine IR 15 mg once a day. This regimen has been working well for him as he states. The patient may benefit from getting a diagnostic lumbar medial branch block however because he was getting good results from that epidural steroid injection I will start by doing an interlaminar epidural steroid injection at the L5-S1 level and if this injection does not give him good results then we'll plan on do ing the transforaminal approach . In the future also he might be a candidate for lumbar medial branch block as mentioned above and possibly radio frequency ablation in the future. I thank you for the referral
[2020-07-07 10:56] VITALS: BP 168/83; PULSE 81; RESP 14; TEMP 98
== END ==
LOC: PNWHC3 09:58
PROVIDERS: ATTEND Anesthesiology
DX: G89.29 Other chronic pain (principal); M48.07 Spinal stenosis, lumbosacral region; M17.11 Unilateral primary osteoarthritis, right knee; G47.30 Sleep apnea, unspecified; N20.0 Calculus of kidney; E11.9 Type 2 diabetes mellitus without complications; Z87.891 Personal history of nicotine dependence; Z88.2 Allergy status to sulfonamides; Z88.0 Allergy status to penicillin; Z88.6 Allergy status to analgesic agent; Z88.1 Allergy status to other antibiotic agents; Z88.8 Allergy status to other drugs, medicaments and biological substances; Z79.899 Other long term (current) drug therapy; Z79.1 Long term (current) use of non-steroidal anti-inflammatories (NSAID); Z79.4 Long term (current) use of insulin; Z79.52 Long term (current) use of systemic steroids; Z99.89 Dependence on other enabling machines and devices
CPT/HCPCS: 99211

== ENCOUNTER → 2020-07-13 | Outpatient (CLI) | payer MEDICARE ==
--- NOTE | 2020-07-13 13:57 | P.PN ---
Subjective Progress Note Date: 07/13/20 a 69-year-old male patient with known history of obstructive sleep apnea coming in for an annual checkup regarding his LINO. He is a severe case of LINO with an AHI of 41 and the patient is currently on a CPAP pressure of 10 cm of water. Over the past year, the patient has maintained his body weight. No significant weight gain or weight loss. He is very compliant to CPAP unit. I checked his CPAP machine on a compliance data that was collected over the past 30 days, the patient is wearing his CPAP machine every nightgot any interruption. The patient has been averaging approximately 8.6 hours of CPAP use per night with a peak of 25 L per minute and his AHI on treatment is that6.8. The patient has a ramp time of 30 minutes and he starting pressures at 5 cm of water and is using a Simplus fullface mask. He is not swallowing any air. He has no gastric distention or flatness. No chest pain. No shortness of breath. No angina. No major hypersomnia or sleepiness during the day. He has absolutely no complaints for now. He is very happy with this treatment and his continues to benefit from CPAP therapy. Objective - Exam the blood pressure is 121/76, pulse is at 72, respiration is at 16, height is 5 feet 7 inches, weight is 182 pounds, BMI 28.5, and saturation is at 95% on room air with a temperature of 98.2. His current Richmond score is at 3. The patient appeared well nourished and normally developed. Vital signs as documented. Head exam is unremarkable. No scleral icterus or corneal arcus noted. Neck is without jugular venous distension, thyromegaly, or carotid bruits. Carotid upstrokes are brisk bilaterally. Lungs are clear to auscultation and percussion. Cardiac exam reveals the PMI to be normally sized and situated. Rhythm is regular. First and second heart sounds normal. No murmurs, rubs or gallops. Abdominal exam reveals normal bowel sounds, no masses, no organomegaly and no aortic enlargement. Extremities are nonedematous and both femoral and pedal pulses are normal.Examination of the skin revealed no evidence of significant rashes, suspicious appearing nevi or other concerning lesions.Neurologically, the patient is awake and alert and the patient does not have any focal neurological deficit. Cranial nerves are essentially intact. Assessment and Plan Plan: 1 obstructive sleep apnea, severe with a baseline AHI of47. The patient continues to use CPAP therapy at a pressure of 10 cm of water. I do see some residual obstructive respiratory events while on a CPAP pressure of 10 cm of water and the patient may benefit from slight adjustment on his CPAP machine. 2 hypersomnia, improved 3 macular degeneration 4 osteoarthritis 5 history of diverticulosis 6 diabetes mellitus type 2 7 spinal stenosis Plan Continue using CPAP machine. I'm going to increase the pressure up to 11 cm of water and pressure adjustment was done. On today's evaluation I gave him the dreamware fullface mask large size under the nose and this was given to him as a trial basis as an alternative mask to his Simplus fullface mask. The rest of the pressure settings will be kept unchanged. The patient is compliant. He continues to benefit. I'll see him back in a years time in follow-up, earlier if needed. For now, his treatment is successful.
== END | disposition home or self-care (01) ==
LOC: SLEEP 13:31
PROVIDERS: ATTEND Internal Medicine Critical Care Medicine
DX: G47.33 Obstructive sleep apnea (adult) (pediatric) (principal); H35.30 Unspecified macular degeneration; M19.90 Unspecified osteoarthritis, unspecified site; M48.00 Spinal stenosis, site unspecified; E11.9 Type 2 diabetes mellitus without complications; Z86.39 Personal history of other endocrine, nutritional and metabolic disease; Z86.69 Personal history of other diseases of the nervous system and sense organs

== ENCOUNTER 2020-07-22 06:17 | Day surgery (SDC) | payer MEDICARE ==
[2020-07-21 09:35] VITALS: BMI 27.7
[2020-07-22] MEDS ORDERED: LACTATED RINGERS 1,000 ML IV SCH (06:45)
[2020-07-22 06:59] VITALS: TEMP 97.8
[2020-07-22] MEDS ORDERED: LIDOCAINE 1% (10MG/ML) FOR IV START INTRADERMA ONE (06:59)
[2020-07-22 07:00] LABS: Glucose,Whole Blood 107 mg/dL (75-99)
[2020-07-22] MEDS ORDERED: LIDOCAINE 1% (10MG/ML) FOR IV START ONE (07:16)
[2020-07-22] MEDS ORDERED: methylPREDNISolone ACETATE 40 MG/ML 1 ML VIAL ONE (07:16)
[2020-07-22] MEDS ORDERED: LIDOCAINE 1% INJ 10MG/ML (20 ML MDV) ONE (07:16)
[2020-07-22] MEDS ORDERED: MIDAZOLAM 2 MG/2 ML VIAL ONE (07:16)
[2020-07-22] MEDS ORDERED: IOPAMIDOL M200 10 ML VIAL ONE (07:16)
--- NOTE | 2020-07-22 07:33 | P.PCN ---
Date of Procedure: 07/22/20 Description of Procedure: PREOPERATIVE DIAGNOSIS: lumbar radiculopathy POSTOPERATIVE DIAGNOSIS: Lumbar radiculopathy PROCEDURE 1. Lumbar epidural steroid injection under fluoroscopic guidance at the L5-S1 level. 2. Lumbar epidurogram. Imaging: Fluoroscopy was used, images where saved to the medical record ANESTHESIA: Local with 1% lidocaine 5 ml and 2 mg of Versed EBL: Minimal PROCEDURE INDICATION: The patient with low back pain and radiculitis symptoms unresponsive to conservative treatment. Fluoroscopy was used to optimize visualization of the needle placement and to maximize safety. PROCEDURE DESCRIPTION / TECHNIQUE: The patient was seen and identified in the preoperative area. Risks, benefits, complications including but not limited to infections ,bleeding ,allergic reaction to the medications, nerve damage and incomplete pain relief , as well as alternatives to the procedure were discussed with the patient. The patient agreed to proceed with the procedure and signed the consent. IV was started, and vital signs were stable. Patient was taken to the OR and time out was completed. The patient was placed in the prone position on procedure table and a pillow was placed under the abdomen to reduce lumbar lordosis. The lumbosacral area was prepped and draped in the usual sterile fashion. Vitals were closely monitored during the procedure. Using anterior-posterior fluoroscopy, the L L5-S1 interlaminar space was identified and the skin over this site was marked and then infiltrated with 1% lidocaine subcutaneously. Subsequently, a 20-gauge Tuohy epidural needle was inserted and advanced toward the epidural space using the Loss of resistance technique and guided by AP and lateral fluoroscopy. The correct needle position in the epidural space was verified with the injection of 1 mL of Omnipaque 180 contrast to observe an acceptable epidurogram, after negative aspiration for blood and CSF and in the absence of paresthesias. Again after negative aspiration, a 3 ml mixture containing 40mg of depomedrol and 2 ml of preservative free Normal Saline was injected and a washout of epidurogram was seen. Needle was withdrawn intact, skin was cleansed, and bandages were applied. COMPLICATIONS: None DISPOSITION / PLANS: The patient was placed in a supine position and transferred to the recovery area in a stable condition for observation. There was no evidence of lower extremity motor or sensory deficit after the procedure. Patient was discharged from the recovery room after meeting discharge criteria. Home discharge instructions were given to the patient by the staff. The patient was reexamined prior to discharge. The patient will follow up as directed.
[2020-07-22] MEDS ORDERED: IV FLUID CONTINUATION 1,000 ML IV ONE (07:37)
[2020-07-22 07:40] VITALS: RESP 18
[2020-07-22 07:54] VITALS: BP 114/58; PULSE 65
--- NOTE | 2020-07-22 10:54 | FL ---
Fluoroscopy HISTORY: Pain 10 seconds fluoroscopy time supplied to the referring clinician. 1 intraoperative C-arm images docum ent the procedure. See dictated report from anesthesia.
== END 2020-07-22 08:10 | disposition home or self-care (01) ==
LOC: ORPAIN 06:17
PROVIDERS: ATTEND Hospitalist
DX: M54.16 Radiculopathy, lumbar region (principal)
CPT/HCPCS: 62323; J2250; J1030; Q9966; 99152

== ENCOUNTER → 2020-08-03 | Outpatient (CLI) | payer MEDICARE ==
[2020-08-03 15:38] LABS: T4, Free (Free Thyroxine) 1.2 ng/dL (0.80-1.80)
[2020-08-03 15:41] LABS: African American GFR (CKD) 87.4 (60.0-200.0); Albumin 4.2 g/dL (3.80-4.90); Albumin/Globulin Ratio 2.33 (1.60-3.17); Anion Gap 8.1 mmol/L (4.00-12.00); Calcium 9.8 mg/dL (8.7-10.3); Carbon Dioxide 24.9 mmol/L (21.6-31.8); Globulin 1.8 g/dL (1.6-3.3); Non-African American GFR(CKD) 75.4 (60.0-200.0); Potassium 4.5 mmol/L (3.5-5.5); Total Bilirubin 0.4 mg/dL (0.3-1.2)
== END | disposition home or self-care (01) ==
LOC: LABWHC1 09:44
PROVIDERS: ATTEND Internal Medicine Endocrinology, Diabetes & Metabolism
DX: E11.65 Type 2 diabetes mellitus with hyperglycemia (principal)
CPT/HCPCS: 36415; 80053; 83036; 84439; 84443; 84480

== ENCOUNTER → 2020-08-16 | Outpatient (CLI) | payer MEDICARE ==
[2020-08-16 09:46] VITALS: BP 151/75; PULSE 64; RESP 18; TEMP 98.4
--- NOTE | 2020-08-16 14:42 | P.PN ---
Subjective Progress Note Date: 08/16/20 This is a follow-up visit for this 70 years old male with a chronic history of severe low back pain with radiation to the left lower extremity his day) lumbar radiculopathy, he simply we have done lumbar epidural steroid injection at L5-S1 patient reported that he had good pain relief after the injection, he denies any motor or sensory deficit he denies any fever or night sweats and there is no change in the bowel movements or urination, the pain is constant in the low back area and he had ligation of the pain to the left lower extremity ,mainley to the posterior aspect of his left leg Objective - Vital Signs Vital signs: Vital Signs Temp 98.4 F 08/16/20 09:38 Pulse 64 08/16/20 09:38 Resp 18 08/16/20 09:38 BP 151/75 08/16/20 09:38 Pulse Ox 95 08/16/20 09:38 - Exam Physical Examinations : -Constitutiona : Cooperative , not in acute distress . -HEENT : nech : supple , no Lymphadenopathy , normal thyroid size . : eyes : no ptosis , no icterus, no photophobia . - neurologic : Cranial nerve II to XII intact , no focal neurological deffecit . -psychatric : alert , oriented X 3 , appropriate affect , intact judgment and insight . -Lymphatic : no Lymphadenopathy . - musculoskeltal : Lumber spine moter stegnth lower extremities ,thigh and legs 5/5 Right side , 5/5 Left side deep tendon reflexes : normal Knee Jerk , normal ankle Jerk lumber facet Loading Test =positive Right , positive Left Range of motion of the lumbar spine Flexion 30 degrees, extension 10 degrees strait leg raising test = positive at 30 degree on the left side Fabere test= positive Right , and positive LT . tenderness over the Sacroiliac joint on the Right , and Left sides . Assessment and Plan Plan: Assessment and plan=1-Lumber radiculopathy. 2-Lumbar spondylosis. Patient will be good candidate for repeat lumbar epidural steroid injection at the L5-S1 (left paramedian approach ) Patient reported that he had severe pain during the procedure we performed a few weeks ago, he is asking if we can give him more sedation, because it was unpleasant experience for - PQRS measures = - Patient's medications are documented in the chart. -Tobacco use is negative and counseling.Given. -Patient's has not received pneumococcal vaccine. -Advanced care planning discussed, patient not eligible. -Opiate contract signed. -Pain positive and follow-up visit/procedure is scheduled. -Patient's blood pressure measured [ 151/75] , and documented in the record ,and patient will follow up with the primary care. -Patient's weight was measured and body mass index (27,7 )above the normal limits and counseling was done. ,and patient instructed to follow-up with the primary care physician. -Patient was not identified as an unhealthy alcohol user Time with Patient: Less than 30
== END | disposition home or self-care (01) ==
LOC: PNWHC3 09:29
PROVIDERS: ATTEND Specialist
DX: M47.26 Other spondylosis with radiculopathy, lumbar region (principal)
CPT/HCPCS: 99211

== ENCOUNTER 2020-08-26 07:55 | Day surgery (SDC) | payer MEDICARE ==
[2020-08-26 08:21] VITALS: RESP 16; TEMP 98
[2020-08-26 08:38] LABS: Glucose,Whole Blood 119 mg/dL (75-99)
[2020-08-26] MEDS ORDERED: LACTATED RINGERS 1,000 ML IV ONE (08:39)
[2020-08-26] MEDS ORDERED: MIDAZOLAM 2 MG/2 ML VIAL ONE (08:48)
[2020-08-26] MEDS ORDERED: IOPAMIDOL M200 10 ML VIAL ONE (08:48)
[2020-08-26] MEDS ORDERED: methylPREDNISolone ACETATE 40 MG/ML 1 ML VIAL ONE (08:48)
--- NOTE | 2020-08-26 09:01 | P.PCN ---
Date of Procedure: 08/26/20 Description of Procedure: PREOPERATIVE DIAGNOSIS: lumbar radiculopathy POSTOPERATIVE DIAGNOSIS: Lumbar radiculopathy PROCEDURE 1. Lumbar epidural steroid injection under fluoroscopic guidance at the L5-S1 level L paramedian approach 2. Lumbar epidurogram. Imaging: Fluoroscopy was used, images where saved to the medical record ANESTHESIA: Local with 1% lidocaine 5 ml and 2 mg of Versed. 9 minutes sedation time EBL: Minimal PROCEDURE INDICATION: The patient with low back pain and radiculitis symptoms unresponsive to conservative treatment. Fluoroscopy was used to optimize visualization of the needle placement and to maximize safety. PROCEDURE DESCRIPTION / TECHNIQUE: The patient was seen and identified in the preoperative area. Risks, benefits, complications including but not limited to infections ,bleeding ,allergic reaction to the medications, nerve damage and incomplete pain relief , as well as alternatives to the procedure were discussed with the patient. The patient agreed to proceed with the procedure and signed the consent. IV was started, and vital signs were stable. Patient was taken to the OR and time out was completed. The patient was placed in the prone position on procedure table and a pillow was placed under the abdomen to reduce lumbar lordosis. The lumbosacral area was prepped and draped in the usual sterile fashion. Vitals were closely monitored during the procedure. Using anterior-posterior fluoroscopy, the L L5-S1 interlaminar space was identified and the skin over this site was marked and then infiltrated with 1% lidocaine subcutaneously. Subsequently, a 20-gauge Tuohy epidural needle was inserted and advanced toward the epidural space using the Loss of resistance technique and guided by AP and lateral fluoroscopy. The correct needle position in the epidural space was verified with the injection of 1 mL of Omnipaque 180 contrast to observe an acceptable epidurogram, after negative aspiration for blood and CSF and in the absence of paresthesias. Again after negative aspiration, a 5 ml mixture containing 40mg of depomedrol and 3 ml of preservative free Normal Saline and 1 mL of 1% lidocaine was injected and a washout of epidurogram was seen. Needle was withdrawn intact, skin was cleansed, and bandages were applied. COMPLICATIONS: None DISPOSITION / PLANS: The patient was placed in a supine position and transferred to the recovery area in a stable condition for observation. There was no evidence of lower extremity motor or sensory deficit after the procedure. Patient was discharged from the recovery room after meeting discharge criteria. Home discharge instructions were given to the patient by the staff. The patient was reexamined prior to discharge. The patient will follow up as directed.
[2020-08-26 09:23] VITALS: BP 143/68; PULSE 78
[2020-08-26] MEDS ORDERED: IV FLUID CONTINUATION 1,000 ML IV ONE (09:29)
--- NOTE | 2020-08-26 09:46 | FL ---
Fluoroscopy HISTORY: Pain 6 seconds fluoroscopy time supplied to the referring clinician. 2 intraoperative C-arm images docume nt the procedure. See dictated report from anesthesia.
== END 2020-08-26 09:52 | disposition home or self-care (01) ==
LOC: ORPAIN 07:55
PROVIDERS: ATTEND Anesthesiology
DX: M54.16 Radiculopathy, lumbar region (principal); E11.9 Type 2 diabetes mellitus without complications
CPT/HCPCS: 62323; J2250; J1030; Q9966

== ENCOUNTER 2020-09-21 11:19 | Emergency (ER) | payer MEDICARE ==
[2020-09-21 11:23] VITALS: TEMP 98.3
[2020-09-21] MEDS ORDERED: SODIUM CHLORIDE 0.9% 500 ML 500 ML IV ONE (11:34)
[2020-09-21] MEDS: HYDROcodone/APAP 7.5-325MG 1 EACH TAB PO ONE ×2 (11:44→11:48)
[2020-09-21] MEDS ORDERED: HYDROmorphone 0.5 MG/0.5 ML SYRINGE IVP STA ×2 (11:48→12:59)
--- NOTE | 2020-09-21 11:56 | ED ---
Back Pain HPI - General Chief Complaint: Back Pain/Injury Stated Complaint: left flank pain Time Seen by Provider: 09/21/20 11:25 Source: patient Limitations: no limitations - History of Present Illness Initial Comments: 70-year-old male history of chronic back pain as well as chronic bilateral knee pain from osteoarthritis with a history of kidney stones presented [facility] ent today for chief complaint of left-sided mid back pain, bilateral knee pain. Patient states that he has left side/mid back pain. He states that increases with movement. Patient states he did have some dysuria this morning and thought it might be a kidney stone. He denies urinary retention difficulty starting the stream or urinary incontinence. He does OF bowel bladder control denies any fa lls or trauma to the injury denies any low back pain at this time. Patient states it is near the site of where he receives injections however because of the cereal this morning he thought it may be a stone. Patient states that the pain does NOT radiate to the knees, he states that these are "two seperate things" he states that he has bilateral knee pain for years and its from osteoarthritis. pt states his morphine at home wasnt working so he came to the ER. He states he sees the pain clinic for chronic pain management. pt denies leg weakness, or sensation deficits. - Related Data Home Medications Medication Instructions Recorded Confirmed Temazepam [Restoril] 30 mg PO HS 03/05/15 09/21/20 Citalopram Hydrobromide [CeleXA] 40 mg PO DAILY 02/05/16 09/21/20 Morphine Sulfate Ir [MSIR] 15 mg PO BID PRN 02/05/16 09/21/20 Levocetirizine Dihydrochloride 5 mg PO HS 07/13/16 09/21/20 [Xyzal] Tamsulosin [Flomax] 0.4 mg PO HS 07/13/16 09/21/20 metFORMIN HCL [Glucophage Xr] 500 mg PO BID 11/27/16 09/21/20 Fluticasone Nasal [place] [Flonase 2 spr EA NOSTRIL BID 03/26/18 09/21/20 Nasal [place]] Gabapentin [Neurontin] 300 mg PO HS PRN 10/26/18 09/21/20 Insulin Glargine,Hum.rec.anlog See Protocol SQ DAILY PRN 08/01/19 09/21/20 [Ysabel Morales] lisinopriL [Prinivil] 5 mg PO DAILY 08/01/19 09/21/20 Ibuprofen [Motrin] 800 mg PO HS 08/14/19 09/21/20 Loratadine-Pseudoeph 10-240 mg 1 tab PO DAILY PRN 08/14/19 09/21/20 [Claritin-D 24 Hour] Diclofenac Sodium Gel [Voltaren 2 gm TOPICAL TID PRN 06/30/20 09/21/20 Gel] Dicyclomine [Bentyl] 20 mg PO QID 07/21/20 09/21/20 Omeprazole 40 mg PO BID 08/11/20 09/21/20 Allergies Allergy/AdvReac Type Severity Reaction Status Date / Time cephalexin monohydrate Allergy Rash/Hives Verified 09/21/20 12:11 [From Keflex] clarithromycin [From Biaxin] Allergy Unknown Verified 09/21/20 12:11 gentamicin [Gentamicin] Allergy Unknown Verified 09/21/20 12:11 naproxen Allergy Unknown Verified 09/21/20 12:11 Penicillins Allergy Anaphylaxis Verified 09/21/20 12:11 Sulfa (Sulfonamide Allergy Rash/Hives Verified 09/21/20 12:11 Antibiotics) promethazine AdvReac Nausea & Verified 09/21/20 12:11 Vomiting Review of Systems ROS Statement: Those systems with pertinent positive or pertinent negative responses have been documented in the HPI. ROS Other: All systems not noted in ROS Statement are negative. Past Medical History Past Medical History: Cancer, COPD, Diabetes Mellitus, GERD/Reflux, Hearing Diso rder / Deafness, Hypertension, Osteoarthritis (OA), Prostate Disorder, Sleep Apnea/CPAP/BIPAP Additional Past Medical History / Comment(s): Current neck pain, pain in lymph nodes/armpits. Optic migraines, diverticulosis, kidney stones, neurpathy hands & feet, low BACK PAIN. 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 CPAP use, enlarged prostate, bilateral hearing aid use, wears brace on bilateral legs. History of Any Multi-Drug Resistant Organisms: None Reported Date of last positivie culture/infection: none MDRO Source:: none Past Surgical History: Breast Surgery, Cholecystectomy, Heart Catheterization, Hernia Repair, Joint Replacement, Orthopedic Surgery Additional Past Surgical History / Comment(s): EGD this am 08/01/19. Laparoscopic Mireya Fundoplasty, CYSTOSCOPY AND LITHOTRIPSY LEfT URETERAL STENT-SINCE REMOVED. RIGHT BREAST BIOPSY, TOTAL LEFT KNEE REPLACEMENT, LEFT FOOT SURGERY, BILATERAL INGUINAL HERNIA REPAIR, PERCUTANEOUS NEPHROLITHOTOMY, BILATERAL hand surgery, back procedure for nerve endings and cortisone injections, ESOPHGEAL DILATION, eye surgery to remove tumors, LUMPECTOMY RIGHT BREAST. Past Anesthesia/Blood Transfusion Reactions: No Reported Reaction Additional Past Anesthesia/Blood Transfusion Reaction / Comment(s): NEVER HAD ANY BLOOD TRANSFUSIONS. Past Psychological History: Anxiety, Depression Smoking Status: Former smoker Past Alcohol Use History: None Reported Past Drug Use History: None Reported - Past Family History Father Family Medical History: No Reported History Mother Family Medical History: Liver Disease Additional Family Medical History / Comment(s): Mother had hepatitis. General Exam - General Exam Comments Initial Comments: General: The patient is awake and alert, in no distress Eye: +3 mm pupils are equal, round and reactive to light, extra-ocular movements are intact. No nystagmus. There is normal conjunctiva bilaterally. No signs of icterus. Ears, nose, mouth and throat: There are moist mucous membranes and no oral lesions. Neck: The neck is supple, there is no tenderness or JVD. Cardiovascular: There is a regular rate and rhythm. No murmur, rub or gallop is appreciated. Respiratory: Lungs are clear to auscultation, respirations are non-labored, breath sounds are equal. No wheezes, stridor, rales, or rhonchi. Gastrointestinal: Soft, non-distended, non-tender abdomen without masses or organomegaly noted. There is no rebound or guarding present. No CVA tenderness Musculoskeletal: Normal inspection of the thoracic and lumbar spine. no midline tenderness some left sided paraspinal tenderness to palpation. some tension noted. Normal ROM, of the hips, knees and ankles b/l Strength 5/5 of the LE b/l. Sensation intact of the LE b/l including the saddle region. Radial pulses equal bilaterally 2+. Refused rectal. 50cc 10 minutes after urinating. Neurological: A&O x 3. CN II-XII intact grossly, There are no obvious motor or sensory deficits. Coordination appears grossly intact. Speech is normal. Skin: Skin is warm and dry and no rashes or lesions are noted. Psychiatric: Cooperative, appropriate mood & affect, normal judgment. Limitations: no limitations Course Vital Signs 09/21/20 11:20 Temperature 98.3 F Pulse Rate 68 Respiratory 16 Rate Blood Pressure 173/80 O2 Sat by Pulse 98 Oximetry Medical Decision Making - Medical Decision Making labs stable. urine unremarkable. no bacteria. CT no stone. Pt has chronic back pain. takes morphine at home. he has no midline or lower back tendernses, no urinary retention, no leg weakness. no sensation deficits. pt ambulatory, no leg swelling at this time i feel pt is stable for discharge [facility] outpatient chronic pain management. pt agreeable tot his care plan. Discussed case with Dr. Emerson - Lab Data Result diagrams: 09/21/20 11:41 09/21/20 11:41 Lab Results 09/21/20 09/21/20 09/21/20 Range/Units 11:41 11:41 11:41 WBC 9.4 (3.8-10.6) k/uL RBC 4.28 L (4.30-5.90) m/uL Hgb 12.4 L (13.0-17.5) gm/dL Hct 39.0 (39.0-53.0) % MCV 91.0 (80.0-100.0) fL MCH 28.9 (25.0-35.0) pg MCHC 31.8 (31.0-37.0) g/dL RDW 20.9 H (11.5-15.5) % Plt Count 256 (150-450) k/uL MPV 9.7 Neutrophils % 57 % Lymphocytes % 26 % Monocytes % 10 % Eosinophils % 3 % Basophils % 1 % Neutrophils # 5.3 (1.3-7.7) k/uL Lymphocytes # 2.5 (1.0-4.8) k/uL Monocytes # 0.9 (0-1.0) k/uL Eosinophils # 0.2 (0-0.7) k/uL Basophils # 0.1 (0-0.2) k/uL Hypochromasia Slight Poikilocytosis Slight Anisocytosis Moderate Microcytosis Slight Sodium 140 (137-145) mmol/L Potassium 4.3 (3.5-5.1) mmol/L Chloride 106 (98-107) mmol/L Carbon Dioxide 29 (22-30) mmol/L Anion Gap 5 mmol/L BUN 17 (9-20) mg/dL Creatinine 0.82 (0.66-1.25) mg/dL Est GFR (CKD-EPI)AfAm >90 (>60 ml/min/1.73 sqM) Est GFR (CKD-EPI)NonAf 89 (>60 ml/min/1.73 sqM) Glucose 110 H (74-99) mg/dL Calcium 9.3 (8.4-10.2) mg/dL Total Bilirubin 0.8 (0.2-1.3) mg/dL AST 35 (17-59) U/L ALT 24 (4-49) U/L Alkaline Phosphatase 295 H (38-126) U/L Total Protein 6.4 (6.3-8.2) g/dL Albumin 4.0 (3.5-5.0) g/dL Urine Color Colorless Urine Appearance Clear (Clear) Urine pH 6.5 (5.0-8.0) Ur Specific [place] 1.005 (1.001-1.035) Urine Protein Negative (Negative) Urine Glucose (UA) Negative (Negative) Urine Ketones Negative (Negative) Urine Blood Negative (Negative) Urine Nitrite Negative (Negative) Urine Bilirubin Negative (Negative) Urine Urobilinogen <2.0 (<2.0) mg/dL Ur Leukocyte Esterase Negative (Negative) Disposition Clinical Impression: Left flank pain, Chronic back pain, Dysuria, Chronic pain of both knees Disposition: HOME SELF-CARE Condition: Good Instructions (If sedation given, give patient instructions): Chronic Pain (ED) Additional Instructions: Please use medication as discussed. Please follow-up with family doctor in the next 2 days.. Please return to emergency room if the symptoms increase or worse n or for any other concerns. Is patient prescribed a controlled substance at d/c from ED?: No Referrals: Siria Hastings MD [Primary Care Provider] - 1-2 days Time of Disposition: 12:59
[2020-09-21 12:01] LABS: Anisocytosis Moderate; Basophils # (A) 0.1 k/uL (0-0.2); Basophils % (A) 1 %; Eosinophils # (A) 0.2 k/uL (0-0.7); Eosinophils % (A) 3 %; HGB 12.4 gm/dL (13.0-17.5); Hypochromasia Slight; Lymphocytes # (A) 2.5 k/uL (1.0-4.8); Lymphocytes % (A) 26 %; MCH 28.9 pg (25.0-35.0); MCHC 31.8 g/dL (31.0-37.0); Mean Platelet Volume 9.7; Microcytosis Slight; Monocytes # (A) 0.9 k/uL (0-1.0); Monocytes % (A) 10 %; Neutrophils # (A) 5.3 k/uL (1.3-7.7); Neutrophils % (A) 57 %; Platelet Count 256 k/uL (150-450); Poikilocytosis Slight; RBC 4.28 m/uL (4.30-5.90); RDW 20.9 % (11.5-15.5); WBC 9.4 k/uL (3.8-10.6)
[2020-09-21 12:03] LABS: Appearance,Urine Clear (Clear); Bilirubin,Urine Negative (Negative); Blood,Urine Negative (Negative); Color,Urine Colorless; Glucose,Urine (UA) Negative (Negative); Ketones,Urine Negative (Negative); Leukocyte Esterase,Urine Negative (Negative); Nitrite,Urine Negative (Negative); PH, Urine 6.5 (5.0-8.0); Protein,Urine Negative (Negative); Specific Gravity,Urine 1.005 (1.001-1.035); Urobilinogen,Urine <2.0 mg/dL (<2.0)
[2020-09-21 12:19] LABS: ALT 24 U/L (4-49); AST 35 U/L (17-59); African American GFR (CKD) >90 (>60 ml/min/1.73 sqM); Alkaline Phosphatase 295 U/L (38-126); Anion Gap 5 mmol/L; Blood Urea Nitrogen 17 mg/dL (9-20); Calcium 9.3 mg/dL (8.4-10.2); Carbon Dioxide 29 mmol/L (22-30); Chloride 106 mmol/L (98-107); Glucose 110 mg/dL (74-99); Non-African American GFR(CKD) 89 (>60 ml/min/1.73 sqM); Potassium 4.3 mmol/L (3.5-5.1); Sodium 140 mmol/L (137-145); Total Bilirubin 0.8 mg/dL (0.2-1.3); Total Protein 6.4 g/dL (6.3-8.2)
--- NOTE | 2020-09-21 12:48 | CT ---
EXAMINATION TYPE: CT abdomen pelvis wo con DATE OF EXAM: 09/21/2020 HISTORY: Left sided flank pain, history of kidney stones CT DLP: 662.7 mGycm. Automated Exposure Control for Dose Reduction was Utilized. TECHNIQUE: CT scan of the abdomen and pelvis is performed without oral or IV contrast. COMPARISON: CT abdomen and pelvis July 22, 2018 FINDINGS: Within the limitations of a non-contrast study, the following observations are made. LUNG BASES: [id number] left greater than right bibasilar linear scarring and/or atelectasis red emonstrated. Heart size stable and upper limits of normal. LIVER/GB: Scattered hypodense lesions throughout the liver measuring under 2 cm in size redemonstrate d favored benign. Gallbladder surgically absent. Mild intrahepatic biliary dilatation redemonstrated. Improved intrahepatic biliary dilatation noted. PANCREAS: Small subcentimeter hypodense lesion pancreatic head axial image 41 redemonstrated. Possibl e cystic lesion. SPLEEN: No significant abnormality is seen. ADRENALS: No significant abnormality is seen. KIDNEYS: Some interval growth in 2.4 cm thin-walled cyst anteriorly mid to lower pole of the right ki dney. There are 4 nonobstructing calculi measuring up to 4 mm in size scattered throughout the left k idney on current study. There are a few scattered simple-appearing thin-walled cysts throughout the l eft kidney redemonstrated. No hydronephrosis or obstructing ureteral calculi clearly seen bilaterally . No intraluminal calculi in the bladder. BOWEL: Stable postsurgical changes at level of diaphragmatic hiatus with stable small hiatal hernia a nd persistent moderate concentric wall thickening of distal esophagus proximal to this. Scattered col onic diverticula. Most prominent diverticulosis involving the sigmoid colon. Moderate concentric wall thickening. No surrounding inflammatory change. Some redundancy sigmoid colon redemonstrated. GENITAL ORGANS: Enlarged prostate gland consistent with BPH redemonstrated LYMPH NODES: No greater than 1cm abdominal or pelvic lymph nodes are appreciated. OSSEOUS STRUCTURES: Moderate 2 borderline severe axial joint space loss in both hips with mild to mod erate acetabular spurring. Ccnpeigu-qg-[id number] disc space narrowing lumbosacral junction. OTHER: Vasectomy clips in the upper scrotal region redemonstrated. Moderate calcified plaque of the a urmila extends into branch vessels. IMPRESSION: Small nonobstructing left renal calculi are redemonstrated. No hydronephrosis or obstruct ing ureteral calculi seen bilaterally. Prominent sigmoid colonic diverticulosis without convincing CT evidence for acute diverticulitis. No suspicious new or acute findings identified.
[2020-09-21 13:12] VITALS: BP 137/75; PULSE 57; RESP 18
== END 2020-09-21 13:17 | disposition home or self-care (01) ==
LOC: EC 11:19
DX: R10.9 Unspecified abdominal pain (principal); G89.29 Other chronic pain; M54.9 Dorsalgia, unspecified; M25.562 Pain in left knee; M25.561 Pain in right knee; R30.0 Dysuria; I10 Essential (primary) hypertension; N40.0 Benign prostatic hyperplasia without lower urinary tract symptoms; J44.9 Chronic obstructive pulmonary disease, unspecified; E11.40 Type 2 diabetes mellitus with diabetic neuropathy, unspecified; M19.90 Unspecified osteoarthritis, unspecified site; M54.5 Low back pain; K21.9 Gastro-esophageal reflux disease without esophagitis; H91.90 Unspecified hearing loss, unspecified ear; G47.30 Sleep apnea, unspecified; F32.9 Major depressive disorder, single episode, unspecified; F41.9 Anxiety disorder, unspecified; Z79.899 Other long term (current) drug therapy; Z79.1 Long term (current) use of non-steroidal anti-inflammatories (NSAID); Z79.84 Long term (current) use of oral hypoglycemic drugs; Z79.51 Long term (current) use of inhaled steroids; Z88.1 Allergy status to other antibiotic agents; Z88.0 Allergy status to penicillin; Z88.2 Allergy status to sulfonamides; Z88.6 Allergy status to analgesic agent; Z87.891 Personal history of nicotine dependence; Z90.49 Acquired absence of other specified parts of digestive tract; Z96.652 Presence of left artificial knee joint; Z85.3 Personal history of malignant neoplasm of breast; Z85.89 Personal history of malignant neoplasm of other organs and systems; Z85.828 Personal history of other malignant neoplasm of skin; Z87.442 Personal history of urinary calculi; Z99.89 Dependence on other enabling machines and devices
CPT/HCPCS: 51798; 36415; 80053; 85025; 81003; 74176; 99284; 96374; 96376; 96361; J1170

== ENCOUNTER → 2020-09-27 | Outpatient (CLI) | payer MEDICARE ==
[2020-09-27 09:30] VITALS: BP 137/79; PULSE 70; RESP 16; TEMP 97.6
--- NOTE | 2020-09-27 09:41 | P.PN ---
Subjective Progress Note Date: 09/27/20 This is a 70-year-old gentleman with history of diabetes and chronic lower back pain with radiation to both legs occasionally to the feet. He also has diabetic peripheral neuropathy. He does have neural foraminal stenosis at multiple levels and a chronic L5 and S1 neuropathic changes. Recently he has been feeling increasing pain in his thighs anteriorly with no numbness or tingling in the lower extremities. The patient takes morphine 30 mg in the morning. We have been doing interlaminar epidural steroid injection for this gentleman with only a few weeks of pain relief. He mentioned that time he used to get them by Dr. Jackson's office he used to get longer period of pain relief. I reviewed Dr. Jakcson files and it looks like he was getting transforaminal epidural steroid injection. Patient denies new-onset weakness, bowel/bladder incontinence, or any other signs or symptoms of cauda equina syndrome. There are no signs of acute intoxication, and no indications of medication diversion or overuse. In addition to above, 13-point review of systems is also negative for chest pain, shortness of breath, changes in vision, changes in hearing, new onset weakness, abdominal pain, diarrhea, extreme fatigue, malaise, fever, skin changes, homicidal or suicidal ideation, or bowel or bladder incontinence. Vital Signs: Reviewed in EMR Gen: AAOx3, NAD HEENT: PERRLA,hearing grossly normal Pulm: resp unlabored Neck: supple, trachea midline Neuro exam of the lower extremities: Areflexia in the lower extremities, decreased muscle strength to 4 out of 5 for knee flexion and extension and normal ankle flexion and extension bilaterally. 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 Diabetic peripheral neuropathy Opioid dependence Plan: 1. Explanation: Opioid and psychological risk scores were reviewed. Diagnoses, prognoses, and multiple treatment options including but not limited to physical therapy, interventional therapies, adjuvant medical therapies, narcotic medication therapies, and surgery were discussed with the patient and all questions were answered to the patient's satisfaction. 2. Opioid agreement: Signed with the patient and the patient is warned not to use opioids while driving or before driving and not to combine opioids with benzodiazepines or alcohol. 3. Counseling: The patient was counseled extensively on SMOKING CESSATION, BODY MASS INDEX, EXERCISE. Specifically, the patient was instructed regarding the importance of smoking cessation, obesity, and exercise in the context of both chronic pain and overall health. 4. Procedures: Schedule for transforaminal epidural steroid injection under fluoroscopic guidance for level L3 4 bilaterally. 5. Consultations: None 6. Investigations: The patient may need a repeat EMG/ nerve conduction test on the lower extremities if his thigh pain continues 7. Medications: Continue same medical treatment 8. Disposition: Return to the above-mentioned procedure as soon as possible 9. Maps were reviewed and were appropriate.
== END | disposition home or self-care (01) ==
LOC: PNWHC3 09:15
PROVIDERS: ATTEND Anesthesiology
DX: M48.061 Spinal stenosis, lumbar region without neurogenic claudication (principal); M47.26 Other spondylosis with radiculopathy, lumbar region; E11.42 Type 2 diabetes mellitus with diabetic polyneuropathy; F11.20 Opioid dependence, uncomplicated
CPT/HCPCS: 99211

== ENCOUNTER 2020-10-05 08:58 | Day surgery (SDC) | payer MEDICARE ==
[2020-10-05 09:19] VITALS: RESP 16; TEMP 97.8
[2020-10-05 09:30] LABS: Glucose,Whole Blood 93 mg/dL (75-99)
[2020-10-05] MEDS ORDERED: LACTATED RINGERS 1,000 ML IV ONE (09:36)
[2020-10-05] MEDS ORDERED: fentaNYL (PF) 50 MCG/ML 2 ML AMP ONE (09:50)
[2020-10-05] MEDS ORDERED: methylPREDNISolone ACETATE 40 MG/ML 1 ML VIAL ONE (09:50)
[2020-10-05] MEDS ORDERED: MIDAZOLAM 2 MG/2 ML VIAL ONE (09:50)
[2020-10-05] MEDS ORDERED: IOPAMIDOL M200 10 ML VIAL ONE (09:50)
--- NOTE | 2020-10-05 10:12 | P.PCN ---
Date of Procedure: 10/05/20 Procedure(s) Performed: PREOPERATIVE DIAGNOSIS:1- Lumbar radiculopathy . 2-lumbar degenerative disc disease. 3-lumbar spondylosis POSTOPERATIVE DIAGNOSIS: Same as preoperative diagnoses. PROCEDURE 1. Transforaminal epidural steroid injection under fluoroscopic guidance at bilateral L3-4 level. (Fluoroscopy images stored on file in the radiology Department ) 2. Lumbar epidurogram . ANESTHESIA: Local with 1% lidocaine 3 ml , moderate sedation with intravenous Versed 1 mg and fentanyle 50 micrograms. EBL: Minimal PROCEDURE INDICATION: The patient with low back pain and radiculopathy symptoms unresponsive to conservative treatment. PROCEDURE DESCRIPTION / TECHNIQUE: The patient was seen and identified in the preoperative area. Risks, benefits, complications, and alternatives were discussed with the patient. The patient agreed to proceed with the procedure and signed the consent. IV was started, and vital signs were stable. Patient was taken to the OR and time out was completed. The patient was placed in the prone position on procedure table and a pillow was placed under the abdomen to reduce lumbar lordosis. The lumbosacral area was prepped and draped in the usual sterile fashion. Critical pause was taken. Vital signs were closely monitored during the procedure. Conscious sedation was used during the procedure to decrease patient s anxiety. Using oblique fluoroscopy, the chin of the `Deseany dog at L3-4 level was identified, and the skin and deeper tissues just below was localized with 1% lidocaine. Subsequently, a 22-gauge 3.5-inch spinal needle was advanced under a tunneled view fluoroscopic guidance just underneath the chin of the `Deseany dog at the right L3-4 Under lateral fluoroscopy, the needle was then advanced to the posterior border of the interforaminal space. After negative aspiration of CSF and blood and with no paresthesias, 1 mL Isovue 200 contrast dye was injected excellent epidurogram and outlining of the nerve root Subsequently, 3 mL of block solution containing 20 mg Depo-Medrol and 2 mL of 0.9% normal saline PF was injected. Needle was removed and the same procedure was repeated at the left 3-4 level (s). At the end of the procedure, skin was cleansed, and bandages were applied. COMPLICATIONS:none DISPOSITION / PLANS: The patient was placed in a supine position and transferred to the recovery area in a stable condition for observation. There was no evidence of lower extremity motor or sensory deficit after the procedure. Patient was discharged from the recovery room after meeting discharge criteria. Home discharge instructions were given to the patient by the staff. The patient was reexamined prior to discharge.
[2020-10-05] MEDS ORDERED: IV FLUID CONTINUATION 1,000 ML IV ONE (10:14)
[2020-10-05 10:17] LABS: Glucose,Whole Blood 95 mg/dL (75-99)
[2020-10-05 10:46] VITALS: PULSE 60
[2020-10-05 10:54] VITALS: BP 120/77
--- NOTE | 2020-10-05 13:42 | FL ---
Fluoroscopy HISTORY: Pain 13 seconds fluoroscopy time supplied to the referring clinician. 3 intraoperative C-arm images docum ent the procedure. See dictated report from anesthesia.
== END 2020-10-05 11:00 | disposition home or self-care (01) ==
LOC: ORPAIN 08:58
PROVIDERS: ATTEND Specialist
DX: M51.16 Intervertebral disc disorders with radiculopathy, lumbar region (principal); M47.26 Other spondylosis with radiculopathy, lumbar region; E11.9 Type 2 diabetes mellitus without complications
CPT/HCPCS: 64483; J2250; J1030; J3010; Q9966; 99152

== ENCOUNTER 2020-10-18 11:44 | Emergency (ER) | payer MEDICARE ==
[2020-10-18 12:33] VITALS: BP 127/73; PULSE 68; RESP 18; TEMP 98.4
--- NOTE | 2020-10-18 13:12 | ED ---
General Adult HPI - General Chief complaint: Back Pain/Injury Stated complaint: back pain Time Seen by Provider: 10/18/20 12:45 Source: patient, RN notes reviewed Mode of arrival: wheelchair Limitations: no limitations - History of Present Illness Initial comments: Patient is a pleasant 70-year-old male presenting to the emergency Department with complaints of low back pain. Patient has chronic low back pain and has had previous physician visits for this. Patient [facility] a [facility] Dr[facility] however he has left town. Patient also goes the pain clinic. Patient last had injections 2 weeks ago. Patient has discomfort of her lower back that is similar to previous. Discomfort is moderate to severe. There is some radiation towards the left leg. No weakness or incontinence or retention of bowel or bladder. No fever. - Related Data Home Medications Medication Instructions Recorded Confirmed Temazepam [Restoril] 30 mg PO HS 03/05/15 10/05/20 Citalopram Hydrobromide [CeleXA] 40 mg PO DAILY 02/05/16 10/05/20 Morphine Sulfate Ir [MSIR] 15 mg PO BID PRN 02/05/16 10/05/20 Levocetirizine Dihydrochloride 5 mg PO HS 07/13/16 10/05/20 [Xyzal] Tamsulosin [Flomax] 0.4 mg PO HS 07/13/16 10/05/20 metFORMIN HCL [Glucophage Xr] 500 mg PO BID 11/27/16 10/05/20 Fluticasone Nasal [place] [Flonase 1 spr EA NOSTRIL BID 03/26/18 10/05/20 Nasal [place]] Gabapentin [Neurontin] 300 mg PO DIRECTED PRN 10/26/18 10/05/20 Insulin Glargine,Hum.rec.anlog See Protocol SQ DIRECTED PRN 08/01/19 10/05/20 [Toureid Solostar] lisinopriL [Prinivil] 5 mg PO DAILY 08/01/19 10/05/20 Ibuprofen [Motrin] 800 mg PO HS 08/14/19 10/05/20 Loratadine-Pseudoeph 10-240 mg 1 tab PO DAILY PRN 08/14/19 10/05/20 [Claritin-D 24 Hour] Diclofenac Sodium Gel [Voltaren 2 gm TOPICAL TID PRN 06/30/20 10/05/20 Gel] Dicyclomine [Bentyl] 20 mg PO QID 07/21/20 10/05/20 Omeprazole 40 mg PO BID 08/11/20 10/05/20 ALPRAZolam [Xanax] 0.25 mg PO DIRECTED PRN 09/22/20 10/05/20 Allergies Allergy/AdvReac Type Severity Reaction Status Date / Time cephalexin monohydrate Allergy Rash/Hives Verified 10/18/20 12:33 [From Keflex] clarithromycin [From Biaxin] Allergy Unknown Verified 10/18/20 12:33 gentamicin [Gentamicin] Allergy Unknown Verified 10/18/20 12:33 naproxen Allergy Unknown Verified 10/18/20 12:33 Penicillins Allergy Anaphylaxis Verified 10/18/20 12:33 Sulfa (Sulfonamide Allergy Rash/Hives Verified 10/18/20 12:33 Antibiotics) promethazine AdvReac Nausea & Verified 10/18/20 12:33 Vomiting Review of Systems ROS Statement: Those systems with pertinent positive or pertinent negative responses have been documented in the HPI. ROS Other: All systems not noted in ROS Statement are negative. Constitutional: Denies: fever Eyes: Denies: eye pain ENT: Denies: ear pain Respiratory: Denies: cough Cardiovascular: Denies: chest pain Endocrine: Denies: fatigue Gastrointestinal: Denies: abdominal pain Genitourinary: Denies: dysuria Musculoskeletal: Reports: as per HPI, back pain Skin: Denies: rash Neurological: Denies: weakness Past Medical History Past Medical History: Cancer, COPD, Diabetes Mellitus, GERD/Reflux, Hearing Disorder / Deafness, Hypertension, Osteoarthritis (OA), Prostate Disorder, Sleep Apnea/CPAP/BIPAP Additional Past Medical History / Comment(s): Current neck pain, pain in lymph nodes/armpits. Optic migraines, diverticulosis, kidney stones, neurpathy hands & feet, low BACK PAIN. 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 CPAP use, enlarged prostate, bilateral hearing aid use, wears brace on bilateral legs. History of Any Multi-Drug Resistant Organisms: None Reported Date of last positivie culture/infection: none MDRO Source:: none Past Surgical History: Hernia Repair Additional Past Surgical History / Comment(s): EGD this am 08/01/19. Laparoscopic Mireya Fundoplasty, CYSTOSCOPY AND LITHOTRIPSY LEfT URETERAL STENT-SINCE REMOVED. RIGHT BREAST BIOPSY, TOTAL LEFT KNEE REPLACEMENT, LEFT FOOT SURGERY, BILATERAL INGUINAL HERNIA REPAIR, PERCUTANEOUS NEPHROLITHOTOMY, BILATERAL hand surgery, back procedure for nerve endings and cortisone injections, ESOPHGEAL DILATION, eye surgery to remove tumors, LUMPECTOMY RIGHT BREAST. Past Anesthesia/Blood Transfusion Reactions: No Reported Reaction Additional Past Anesthesia/Blood Transfusion Reaction / Comment(s): NEVER HAD ANY BLOOD TRANSFUSIONS. Past Psychological History: Anxiety, Depression Smoking Status: Former smoker Past Alcohol Use History: None Reported Past Drug Use History: None Reported - Past Family History Father Family Medical History: No Reported History Mother Family Medical History: No Reported History Additional Family Medical History / Comment(s): . General Exam Limitations: no limitations General appearance: alert, in no apparent distress Head exam: Present: normocephalic Eye exam: Present: normal appearance Neck exam: Present: normal inspection Respiratory exam: Present: normal lung sounds bilaterally Cardiovascular Exam: Present: regular rate, normal rhythm GI/Abdominal exam: Present: soft. Absent: tenderness Extremities exam: Present: normal inspection Back exam: Present: tenderness (Mild tenderness lower lumbar spine) Neurological exam: Present: alert. Absent: motor sensory deficit Expanded Sensory exam: Lower Extremity Light Touch: Normal Motor strength exam: RUE: 5, LUE: 5, RLE: 5, LLE: 5 Psychiatric exam: Present: normal affect, normal mood Skin exam: Present: normal color Course Vital Signs 10/18/20 12:30 Temperature 98.4 F Pulse Rate 68 Respiratory 18 Rate Blood Pressure 127/73 O2 Sat by Pulse 95 Oximetry Medical Decision Making - Medical Decision Making Pain clinic was contacted however the physician is not available. Patient updated. Disposition Clinical Impression: Chronic low back pain Disposition: HOME SELF-CARE Condition: Stable Instructions (If sedation given, give patient instructions): Acute Low Back Pain (ED) Additional Instructions: Please call pain clinic for follow-up. Please also follow-up with your primary care physician in the next day or 2 for recheck. Return for weakness, loss of control of bowel or bladder, worsening or change in symptoms or other concerns. Is patient prescribed a controlled substance at d/c from ED?: No Referrals: Siria Hastings MD [Primary Care Provider] - 1-2 days Time of Disposition: 13:47
[2020-10-18] MEDS ORDERED: HYDROmorphone 1 MG/ML 1 ML SYRINGE IM STA (13:48)
== END 2020-10-18 14:02 | disposition home or self-care (01) ==
LOC: EC 11:44
DX: M54.5 Low back pain (principal); G89.29 Other chronic pain; F32.9 Major depressive disorder, single episode, unspecified; F41.9 Anxiety disorder, unspecified; N40.0 Benign prostatic hyperplasia without lower urinary tract symptoms; Z79.1 Long term (current) use of non-steroidal anti-inflammatories (NSAID); Z79.899 Other long term (current) drug therapy; Z88.0 Allergy status to penicillin; Z88.1 Allergy status to other antibiotic agents; Z88.2 Allergy status to sulfonamides; Z88.8 Allergy status to other drugs, medicaments and biological substances; Z87.891 Personal history of nicotine dependence; Z96.652 Presence of left artificial knee joint; Z85.3 Personal history of malignant neoplasm of breast; Z85.828 Personal history of other malignant neoplasm of skin; Z86.69 Personal history of other diseases of the nervous system and sense organs
CPT/HCPCS: 99283; 96372; J1170

== ENCOUNTER → 2020-10-25 | Outpatient (CLI) | payer MEDICARE ==
--- NOTE | 2020-10-25 08:20 | P.PN ---
Subjective Progress Note Date: 10/25/20 This is a follow-up visit for this 70 years old male with a chronic history of severe low back pain, and possible lumbar radiculopathy and lumbar degenerative disc disease, lumbar spondylosis with lumbar facet arthropathy, recently we have done lumbar epidural steroid injection, and recently we did transforaminal epidural steroid injection, patient gets short-term benefit after the injections, and currently is complaining of severe low back pain with radiation to the posterior aspect of the lower extremity, the pain interferes with the quality of life he denies any fever or night sweats he denies any change in the bowel movement or urination , he feels some weakness in his left lower extremity but he is able to ambulate on his own, he continued to use the Neurontin 300 mg and Motrin 800 mg when necessary and morphine sulfate 15 mg twice a day, and denies any side effect of the medications, and he is getting prescription refills from his primary care Objective - Exam Physical Examinations : -Constitutiona : Cooperative , not in acute distress . -HEENT : nech : supple , no Lymphadenopathy , normal thyroid size . : eyes : no ptosis , no icterus, no photophobia . - neurologic : Cranial nerve II to XII intact , no focal neurological deffecit . -psychatric : alert , oriented X 3 , appropriate affect , intact judgment and insight . -Lymphatic : no Lymphadenopathy . - musculoskeltal : Lumber spine moter stegnth lower extremities ,thigh and legs 5/5 Right side , 5/5 Left side deep tendon reflexes : normal Knee Jerk , normal ankle Jerk lumber facet Loading Test =positive Right , posiutive Left Range of motion of the lumbar spine Flexion 30 degrees, extension 10 degrees strait leg raising test = positive at 30 degree Fabere test= positive Right , and positive LT . Sever tenderness over the Sacroiliac joint on the Left sides Gaenslen test= negative right ,and positive left . Seated flexion test= negative right ,and positive Left . MRI of the lumbar spine done in January 2019= three-level lumbar bulging disc disease and multilevel lumbar facet arthropathy Assessment and Plan Plan: Assessment and plan= chronic low back pain secondary to lumbar degenerative disc disease , lumbar spondylosis with lumbar facet arthropathy, left sacroiliitis . MAPS Reviwed and it was apropriate . Description continued to have severe pain after lumbar epidural steroid injec tions, pain interfere with the quality of life and activity of daily livings Patient will be with candidate to have diagnostic medial branch block lumbar area at L3, L4, L5 ( for the Facet L4-5 ,L5-S1 ) x2 - PQRS measures = - Patient's medications are documented in the chart. -Tobacco use is negative and counseling.Given. -Patient's has not received pneumococcal vaccine. -Advanced care planning discussed, patient not eligible. -Opiate contract not signed. -Pain positive and follow-up visit/procedure is scheduled. -Patient's blood pressure measured [ 124/73] , and documented in the record ,and patient will follow up with the primary care. -Patient's weight was measured and body mass index [ 28,3 ] above the normal limits and counseling was done. and patient instructed to follow-up with the primary care physician. -Patient was not identified as an unhealthy alcohol user , Time with Patient: Less than 30
[2020-10-25 08:24] VITALS: BP 124/73; PULSE 72; RESP 16; TEMP 98.7
== END | disposition home or self-care (01) ==
LOC: PNWHC3 07:42
PROVIDERS: ATTEND Specialist
DX: M51.36 Other intervertebral disc degeneration, lumbar region (principal); M47.816 Spondylosis without myelopathy or radiculopathy, lumbar region; M46.1 Sacroiliitis, not elsewhere classified; G89.29 Other chronic pain
CPT/HCPCS: 99211

== ENCOUNTER 2020-11-05 06:04 | Day surgery (SDC) | payer MEDICARE ==
[2020-11-04 10:41] VITALS: BMI 27.6
[~2020-11-05 06:04] MED LIST changes: -LIDOCAINE 1% INJ 10MG/ML (20 ML MDV) ONE; -MIDAZOLAM 2 MG/2 ML VIAL IVP ONE; -PROPOFOL 10 MG/ML 20 ML VIAL IV ONE
[2020-11-05 06:34] VITALS: RESP 16; TEMP 97.6
[2020-11-05 06:42] LABS: Glucose,Whole Blood 103 mg/dL (75-99)
[2020-11-05] MEDS ORDERED: MIDAZOLAM 2 MG/2 ML VIAL IV ONE (06:46)
[2020-11-05] MEDS ORDERED: MIDAZOLAM 2 MG/2 ML VIAL ONE (07:05)
[2020-11-05] MEDS ORDERED: PROPOFOL 10 MG/ML 20 ML VIAL IV ONE (07:05)
[2020-11-05] MEDS ORDERED: ROPIVACAINE 5MG/ML 20ML VIAL ONE (07:05)
[2020-11-05] MEDS ORDERED: TRIAMCINOLONE ACETONIDE 40 MG/ML 1 ML VIAL ONE (07:05)
--- NOTE | 2020-11-05 07:24 | P.PCN ---
Date of Procedure: 11/05/20 Surgeon: Luca Parrish Pathology: none sent Condition: stable Disposition: PACU Description of Procedure: PREOPERATIVE DIAGNOSIS : 1- Lumbar spondylosis with Facet Arthropathy without myelopathy . 2- Lumber degenerative disc disease POSTOPERATIVE DIAGNOSIS: 1- Lumbar spondylosis with Facet Arthropathy without myelopathy . 2- Lumber degenerative disc disease PROCEDURE: Diagnostic bilateral L4 -5 , and L5-S1 medial branch block under fluoroscopy Physician: Luca Parrish MD ANESTHESIA: Local with 1% lidocaine; IV moderate conscious sedation by the anesthesia department . EBL: Negligible COMPLICATION: None. PROCEDURE INDICATION: Chronic low back pain secondary to Facet arthropathy unresponsive to conservative treatment. PROCEDURE DESCRIPTION: the patient was seen and identified in the preop holding area , risks and benefits and possible complications of the procedure and alternatives were discussed with the patient, and the patient agreed to proceed with the procedure and signed the consent. IV was started and vital signs monitored during the procedure and fluoroscopy was used to maximize the benefit and accuracy of the needle placement, sedation was given to decrease patient anxiety, patient was taken to the procedure room and placed in prone position vital signs monitored. The patient was brought into the procedure room and placed in prone position. Skin was prepped with Chloraprep and draped in a sterile manner. Lidocaine 1% was used to numb the skin up at the target points that were chosen as follows: at the L5-S1 level which corresponds to the dorsal ramus of L5 the target points were at the superior medial aspect of the sacral ala on each side of the spine on the AP view of fluoroscopy, and for the L3 and L4 medial branches the target points were the connection between the transverse process and the superior to go process of L4 and L5 respectively on the oblique views of fluoroscopy. I used 22-gauge 3-1/2 inch Quincke spinal needles for this procedure and after contacting bone at the target points mentioned above I injected 1 mL of a mixture of Kenalog 40 mg +5 MLS of Ropivacaine 0.5% PF . Patient tolerated procedure well. At the end of the procedure the needles removed and a bandage applied after the skin was cleaned the cleaning solution. patient was then taken to the recovery room in stable condition and monitored in the recovery room for 20-30 minutes and discharged home in stable condition after discharge criteria met . A copy of the needle placement picture was saved to the C-arm machine.
[2020-11-05] MEDS ORDERED: IV FLUID CONTINUATION 1,000 ML IV ONE (07:30)
[2020-11-05 07:57] VITALS: BP 119/71; PULSE 64
--- NOTE | 2020-11-05 09:19 | FL ---
EXAMINATION TYPE: FL guided pain mgmt statistic DATE OF EXAM: 11/05/2020 HISTORY: Fluoroscopy time 10 seconds of fluoroscopy provided. IMPRESSION: 1. Fluoroscopy time.
== END 2020-11-05 08:16 ==
LOC: ORPAIN 06:04
PROVIDERS: ATTEND Anesthesiology
DX: G89.29 Other chronic pain (principal); M51.36 Other intervertebral disc degeneration, lumbar region; M47.816 Spondylosis without myelopathy or radiculopathy, lumbar region; I10 Essential (primary) hypertension; E11.9 Type 2 diabetes mellitus without complications; Z79.4 Long term (current) use of insulin; Z79.1 Long term (current) use of non-steroidal anti-inflammatories (NSAID); Z79.899 Other long term (current) drug therapy
CPT/HCPCS: 64493; 64494; 64495; J2250; J3301; J2704; J2795

== ENCOUNTER → 2020-11-22 | Outpatient (CLI) | payer MEDICARE ==
[2020-11-22 20:33] LABS: T4, Free (Free Thyroxine) 1.1 ng/dL (0.80-1.80)
== END | disposition home or self-care (01) ==
LOC: LABWHC1 11:45
PROVIDERS: ATTEND Internal Medicine Endocrinology, Diabetes & Metabolism
DX: E05.90 Thyrotoxicosis, unspecified without thyrotoxic crisis or storm (principal)
CPT/HCPCS: 36415; 84439; 84443

== ENCOUNTER → 2020-11-29 | Outpatient (CLI) | payer MEDICARE ==
--- NOTE | 2020-11-29 09:33 | P.PN ---
Subjective Progress Note Date: 11/29/20 This is a follow-up visit for this 70 years old male with a chronic history of severe low back pain, he is lumbar radiculopathy and lumbar degenerative disc disease, lumbar spondylosis with lumbar facet arthropathy, recently we have done diagnostic medial branch block lumbar area, patient gets excellent pain relief for a few days after the block, and his mobility improved during that period, and he was able to do more activity of daily livings, denies any fever or night sweats Objective - Vital Signs Vital signs: Vital Signs Temp 98.1 F 11/29/20 09:13 Pulse 72 11/29/20 09:13 Resp 16 11/29/20 09:13 BP 130/74 11/29/20 09:13 Pulse Ox 96 11/29/20 09:13 Assessment and Plan Plan: Physical Examinations : -Constitutiona : Cooperative , not in acute distress . -HEENT : nech : supple , no Lymphadenopathy , normal thyroid size . : eyes : no ptosis , no icterus, no photophobia . - neurologic : Cranial nerve II to XII intact , no focal neurological deffecit . -psychatric : alert , oriented X 3 , appropriate affect , intact judgment and insight . -Lymphatic : no Lymphadenopathy . - musculoskeltal : Lumber spine moter stegnth lower extremities ,thigh and legs 5/5 Right side , 5/5 Left side deep tendon reflexes : normal Knee Jerk , normal ankle Jerk lumber facet Loading Test =positive Right , posiutive Left Range of motion of the lumbar spine Flexion 30 degrees, extension 10 degrees strait leg raising test = positive at 30 degree Fabere test= positive Right , and positive LT . Sever tenderness over the Sacroiliac joint on the Left sides Gaenslen test= negative right ,and positive left . Seated flexion test= negative right ,and positive Left . MRI of the lumbar spine done in January 2019= three-level lumbar bulging disc di sease and multilevel lumbar facet arthropathy Assessment and plan= chronic low back pain secondary to lumbar degenerative disc disease , lumbar spondylosis with lumbar facet arthropathy, left sacroiliitis . Description had excellent pain relief after the first diagnostic block Patient will be with candidate to have second diagnostic medial branch block lumbar area at L3, L4, L5 ( for the Facet L4-5 ,L5-S1 ) - PQRS measures = - Patient's medications are documented in the chart. -Tobacco use is negative and counseling.Given. -Patient's has not received pneumococcal vaccine. -Advanced care planning discussed, patient not eligible. -Opiate contract not signed. -Pain positive and follow-up visit/procedure is scheduled. -Patient's blood pressure measured [ 130/74] , and documented in the record ,and patient will follow up with the primary care. -Patient's weight was measured and body mass index [ 27.1 ] above the normal limits and counseling was done. and patient instructed to follow-up with the primary care physician. -Patient was not identified as an unhealthy alcohol user Time with Patient: Less than 30
== END | disposition home or self-care (01) ==
CPT/HCPCS: 99211

== ENCOUNTER 2020-12-03 10:03 | Day surgery (SDC) | payer MEDICARE ==
[2020-12-01 16:17] VITALS: BMI 28.6
[2020-12-03 10:42] LABS: Glucose,Whole Blood 101 mg/dL (75-99)
[2020-12-03] MEDS ORDERED: MIDAZOLAM 2 MG/2 ML VIAL IVP ONE (10:44)
[2020-12-03] MEDS ORDERED: ROPIVACAINE 5MG/ML 20ML VIAL ONE (10:48)
[2020-12-03] MEDS ORDERED: MIDAZOLAM 2 MG/2 ML VIAL ONE (10:48)
[2020-12-03] MEDS ORDERED: fentaNYL (PF) 50 MCG/ML 2 ML AMP ONE (10:48)
[2020-12-03] MEDS ORDERED: methylPREDNISolone ACETATE 40 MG/ML 1 ML VIAL ONE (10:48)
[2020-12-03 10:49] VITALS: TEMP 97
--- NOTE | 2020-12-03 11:03 | P.PCN ---
Date of Procedure: 12/03/20 Procedure(s) Performed: PREOPERATIVE DIAGNOSIS : 1- Lumbar spondylosis with Facet Arthropathy without myelopathy . 2- Lumber degenerative disc disease POSTOPERATIVE DIAGNOSIS: 1- Lumbar spondylosis with Facet Arthropathy without myelopathy . 2- Lumber degenerative disc disease PROCEDURE: Diagnostic bilateral L3 , L4 , and L5 medial branch block under fluoroscopy guidance(fluoroscopy images available in the radiology Department ) ( To target the facet joint between bilateral L4-5 , and L5-S1 ) ANESTHESIA:, Monitored anesthesia care as per anesthesia department. EBL: Minimal COMPLICATION: None PROCEDURE INDICATION: Chronic low back pain secondary to Facet arthropathy unresponsive to conservative treatment. PROCEDURE DESCRIPTION: the patient was seen and identified in the preop holding area , risks and benefits and possible complications of the procedure and alternative were discussed with the patient, and the patient agreed to proceed with the procedure and signed the consent and vital signs monitored during the procedure and fluoroscopy was used to maximize the benefit and accuracy of the needle placement, and sedation was given to decrease patient anxiety, patient was taken to the procedure room and placed in prone position vital signs monitored in the back prepped with chlorhexidine X3 then under strict sterile technique using a right oblique fluoroscopy ,the junction of the transverse process and the superior articulating process of the right L3 , L4 , and L5 vertebra which corresponding to the fluoroscopy image of the eye of the Felton dog on the block side for the medial branches and subsequently , after local infiltration of skin and subcu tissuies with Ropivacaine 0.5 % , one mL at each level ,then 22-gauge Quincke-type needles , 3 needle was used , each one of them placed at the junction of the base of the transverse process and the superior articular process at the appropriate level, and the needle was advanced until the periosteum contacted, needle placement confirmed with AP oblique and lateral view and after appropriate needle placement confirmed, and after negative aspiration for heme and CSF and there was no paresthesia 1-1/2 mL of Ropivacaine 0.5% mixed with 20 mg Depo-Medrol , then half mL injected at each level after negative aspiration the needle subsequently removed and the same procedure repeated for the left side at left side at L3 , L4 and L5 levels. At the end of the procedure and the needles removed and a bandage applied after the skin was cleaned the cleaning solution patient taken to recovery room in stable condition and monitors in the recovery room for 20-30 minutes and discharged home in stable condition after discharge criteria met and patient will follow up with the pain clinic in 2-4 weeks
[2020-12-03] MEDS ORDERED: IV FLUID CONTINUATION 1,000 ML IV ONE (11:07)
[2020-12-03 11:15] VITALS: RESP 16
[2020-12-03 11:18] LABS: Glucose,Whole Blood 97 mg/dL (75-99)
--- NOTE | 2020-12-03 11:29 | FL ---
Fluoroscopy HISTORY: Pain 8 seconds fluoroscopy time supplied to the referring clinician. 4 intraoperative C-arm images docume nt the procedure. See dictated report from anesthesia.
[2020-12-03 11:52] VITALS: BP 107/69; PULSE 75
== END 2020-12-03 11:58 | disposition home or self-care (01) ==
LOC: ORPAIN 10:03
PROVIDERS: ATTEND Specialist
DX: G89.29 Other chronic pain (principal); M47.816 Spondylosis without myelopathy or radiculopathy, lumbar region; M51.36 Other intervertebral disc degeneration, lumbar region; I10 Essential (primary) hypertension; J44.9 Chronic obstructive pulmonary disease, unspecified; E11.9 Type 2 diabetes mellitus without complications; M54.2 Cervicalgia; Z88.1 Allergy status to other antibiotic agents; E66.9 Obesity, unspecified; Z88.0 Allergy status to penicillin; Z88.2 Allergy status to sulfonamides; Z88.6 Allergy status to analgesic agent; Z79.899 Other long term (current) drug therapy; Z79.4 Long term (current) use of insulin; Z98.890 Other specified postprocedural states
CPT/HCPCS: 64493; 64494; J2250; J1030; J3010; J2795

== ENCOUNTER → 2020-12-20 | Outpatient (CLI) | payer MEDICARE ==
[2020-12-20 12:40] VITALS: BP 128/78; PULSE 80; RESP 18; TEMP 97.8
--- NOTE | 2020-12-20 12:52 | P.PN ---
Subjective Progress Note Date: 12/20/20 This is a 70-year-old gentleman with history of chronic lower back pain and no radiation to the right calf without paresthesia. The patient feels some weakness in the lower extremities and that's why he wears a knee brace for support. He had 50% of pain relief after diagnostic lumbar medial branch block. Certainly, this new pain that radiates down to the right calf. Patient denies new-onset weakness, bowel/bladder incontinence, or any other signs or symptoms of cauda equina syndrome. There are no signs of acute intoxication, and no indications of medication diversion or overuse. In addition to above, 13-point review of systems is also negative for chest pain, shortness of breath, changes in vision, changes in hearing, new onset weakness, abdominal pain, diarrhea, extreme fatigue, malaise, fever, skin changes, homicidal or suicidal ideation, or bowel or bladder incontinence. Vital Signs: Reviewed in EMR Gen: AAOx3, NAD HEENT: PERRLA,hearing grossly normal Pulm: resp unlabored Neck: supple, trachea midline Neuro exam of the lower extremities: Decreased knee flexion and extension to 4 out of 5 bilaterally with normal ankle flexion and extension. Absent deep tendon reflexes bilaterally. Straight leg raising test: Negative bilaterally Tyrese's test: Negative bilaterally Range of motion of the lumbar spine: Facet loading test: Tenderness in the paravertebral musculature: Positive on the lumbar area bilaterally Neuro: CN II-XII grossly intact, Imaging: Reviewed in EMR/chart Assessment: Lumbar spondylosis without myelopathy Severe neural foraminal stenosis at the L5-S1 level on the right side as per the MRI which corresponds to his clinical symptoms now with pain radiating down to the right lower extremity. History of diabetes No anticoagulation Plan: 1. Explanation: Opioid and psychological risk scores were reviewed. Diagnoses, prognoses, and multiple treatment options including but not limited to physical therapy, interventional therapies, adjuvant medical therapies, narcotic medication therapies, and surgery were discussed with the patient and all questions were answered to the patient's satisfaction. 2. Opioid agreement: Signed with the patient and the patient is warned not to use opioids while driving or before driving and not to combine opioids with benzodiazepines or alcohol. 3. Counseling: The patient was counseled extensively on SMOKING CESSATION, BODY MASS INDEX, EXERCISE. Specifically, the patient was instructed regarding the importance of smoking cessation, obesity, and exercise in the context of both chronic pain and overall health. 4. Procedures: Scheduled for lumbar transforaminal epidural steroid injection at the L5-S1 level on the right side under fluoroscopic guidance. The patient had 50% of pain relief after the diagnostic medial branch block previously he might also be a good candidate for lumbar medial branch RFA in the future. 5. Consultations: None 6. Investigations: None 7. Medications: None prescribed today 8. Disposition: Proceed with the above-mentioned procedure as soon as possible 9. Maps were reviewed and were appropriate. Objective - Vital Signs Vital signs: Vital Signs Temp 97.8 F 12/20/20 12:34 Pulse 80 12/20/20 12:34 Resp 18 12/20/20 12:34 BP 128/78 12/20/20 12:34 Pulse Ox 95 12/20/20 12:34
== END ==
LOC: PNWHC3 12:18
PROVIDERS: ATTEND Anesthesiology
DX: M47.816 Spondylosis without myelopathy or radiculopathy, lumbar region (principal); M48.07 Spinal stenosis, lumbosacral region; E11.9 Type 2 diabetes mellitus without complications
CPT/HCPCS: 99211

== ENCOUNTER 2021-01-05 10:48 | Emergency (ER) | payer MEDICARE ==
[2021-01-05 11:14] VITALS: BP 121/71; PULSE 79; RESP 18; TEMP 98
[2021-01-05] MEDS ORDERED: HYDROmorphone 0.5 MG/0.5 ML SYRINGE IM STA (11:44)
--- NOTE | 2021-01-05 12:45 | ED ---
Lower Extremity Injury HPI - General Chief Complaint: Extremity Injury, Lower Stated Complaint: leg pain Time Seen by Provider: 01/05/21 11:15 Source: patient Mode of arrival: wheelchair Limitations: physical limitation - History of Present Illness Initial Comments: 70-year-old male presenting to the emergency department today for chief complaint of right hip pain rating down the right leg and buttock. Patient states that he has chronic sciatica he sees pain management. Patient states has been worse the past week. He states that he does have an injection scheduled but was told to come in to the ER for pain control today until they can move up the appointment. She denies falls injury IV drug use active cancer fevers loss of bowel bladder control urinary retention weakness or sensation deficits of the lower extremity. Patient states pain increases with lifting the leg - Related Data Home Medications Medication Instructions Recorded Confirmed Temazepam [Restoril] 30 mg PO HS 03/05/15 12/16/20 Citalopram Hydrobromide [CeleXA] 40 mg PO DAILY 02/05/16 12/16/20 Morphine Sulfate Ir [MSIR] 15 mg PO BID PRN 02/05/16 12/16/20 Levocetirizine Dihydrochloride 5 mg PO HS 07/13/16 12/16/20 [Xyzal] Tamsulosin [Flomax] 0.4 mg PO HS 07/13/16 12/16/20 metFORMIN HCL [Glucophage Xr] 500 mg PO BID 11/27/16 12/16/20 Fluticasone Nasal [place] [Flonase 2 spr EA NOSTRIL BID 03/26/18 12/16/20 Nasal [place]] Gabapentin [Neurontin] 300 mg PO DIRECTED PRN 10/26/18 12/16/20 Insulin Glargine,Hum.rec.anlog See Protocol SQ DIRECTED PRN 08/01/19 12/16/20 [Toujerryo Solostar] lisinopriL [Prinivil] 5 mg PO DAILY 08/01/19 12/16/20 Ibuprofen [Motrin] 800 mg PO HS 08/14/19 12/16/20 Loratadine-Pseudoeph 10-240 mg 1 tab PO DAILY PRN 08/14/19 12/16/20 [Claritin-D 24 Hour] Dicyclomine [Bentyl] 20 mg PO QID 07/21/20 12/16/20 Omeprazole 40 mg PO BID 08/11/20 12/16/20 ALPRAZolam [Xanax] 0.25 mg PO DIRECTED PRN 09/22/20 12/16/20 Allergies Allergy/AdvReac Type Severity Reaction Status Date / Time cephalexin monohydrate Allergy Rash/Hives Verified 01/05/21 11:14 [From Keflex] clarithromycin [From Biaxin] Allergy Unknown Verified 01/05/21 11:14 gentamicin [Gentamicin] Allergy Unknown Verified 01/05/21 11:14 naproxen Allergy Unknown Verified 01/05/21 11:14 Penicillins Allergy Anaphylaxis Verified 01/05/21 11:14 Sulfa (Sulfonamide Allergy Rash/Hives Verified 01/05/21 11:14 Antibiotics) promethazine AdvReac Nausea & Verified 01/05/21 11:14 Vomiting Review of Systems ROS Statement: Those systems with pertinent positive or pertinent negative responses have been documented in the HPI. ROS Other: All systems not noted in ROS Statement are negative. Past Medical History Past Medical History: Cancer, COPD, Diabetes Mellitus, GERD/Reflux, Hearing Disorder / Deafness, Hypertension, Osteoarthritis (OA), Prostate Disorder, Sleep Apnea/CPAP/BIPAP Additional Past Medical History / Comment(s): . Optic migraines, diverticulosis, kidney stones, neuropathy hands & feet, low BACK PAIN. 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 CPAP use, bilateral hearing aid use, wears brace on bilateral legs. History of Any Multi-Drug Resistant Organisms: None Reported Date of last positivie culture/infection: none MDRO Source:: none Past Surgical History: Back Surgery, Breast Surgery, Hernia Repair, Joint Replacement Additional Past Surgical History / Comment(s): EGD . Laparoscopic Mireya Fundoplasty, CYSTOSCOPY AND LITHOTRIPSY LEfT URETERAL STENT-SINCE REMOVED. RIGHT BREAST BIOPSY, TOTAL LEFT KNEE REPLACEMENT, LEFT FOOT SURGERY, BILATERAL INGUINAL HERNIA REPAIR, PERCUTANEOUS NEPHROLITHOTOMY, BILATERAL hand surgery, back procedure for nerve endings and cortisone injections, ESOPHGEAL DILATION, eye surgery to remove tumors, LUMPECTOMY RIGHT BREAST. Past Anesthesia/Blood Transfusion Reactions: No Reported Reaction Additional Past Anesthesia/Blood Transfusion Reaction / Comment(s): NEVER HAD ANY BLOOD TRANSFUSIONS. Past Psychological History: No Psychological Hx Reported Smoking Status: Former smoker Past Alcohol Use History: None Reported Past Drug Use History: None Reported - Past Family History Father Family Medical History: Cancer Mother Family Medical History: No Reported History Additional Family Medical History / Comment(s): . General Exam - General Exam Comments Initial Comments: General: The patient is awake and alert, in no distress Eye: +3 mm pupils are equal, round and reactive to light, extra-ocular movements are intact. No nystagmus. There is normal conjunctiva bilaterally. No signs of icterus. Ears, nose, mouth and throat: There are moist mucous membranes and no oral lesions. Neck: The neck is supple, there is no tenderness or JVD. Cardiovascular: There is a regular rate and rhythm. No murmur, rub or gallop is appreciated. Respiratory: Lungs are clear to auscultation, respirations are non-labored, breath sounds are equal. No wheezes, stridor, rales, or rhonchi. Gastrointestinal: Soft, non-distended, non-tender abdomen without masses or organomegaly noted. There is no rebound or guarding present. Musculoskeletal: Normal ROM, no tenderness. Strength 5/5 of the LE b/l. Sensation intact of the LE b/l. Radial and DP pulses equal bilaterally 2+. Neurological: A&O x 3. CN II-XII intact grossly, There are no obvious motor or sensory deficits. Coordination appears grossly intact. Speech is normal. Skin: Skin is warm and dry and no rashes or lesions are noted. Psychiatric: Cooperative, appropriate mood & affect, normal judgment. Limitations: physical limitation Course Vital Signs 01/05/21 11:11 Temperature 98.0 F Pulse Rate 79 Respiratory 18 Rate Blood Pressure 121/71 O2 Sat by Pulse 96 Oximetry Medical Decision Making - Medical Decision Making 70yo presenting for cc of acute on chronc leg, buttock pain. chronic, increased x 1 week. Patient neurovascular intact ambulatory he denies any symptoms concerning for cauda equina. Patient sees pain management patient is given symptomatic control the emergency department and discharged appearing well. Dr cota agreeable to care plan. Disposition Clinical Impression: Right leg pain, Sciatic leg pain Disposition: HOME SELF-CARE Condition: Good Instructions (If sedation given, give patient instructions): Leg Pain (ED) Additional Instructions: Please use medication as discussed. Please follow-up with family doctor in the next 2 days.. Please return to emergency room if the symptoms increase or worsen or for any other concerns. Is patient prescribed a controlled substance at d/c from ED?: No Referrals: Siria Hastings MD [Primary Care Provider] - 1-2 days Time of Disposition: 12:45
== END 2021-01-05 13:14 | disposition home or self-care (01) ==
LOC: EC 10:48
DX: M79.604 Pain in right leg (principal); E11.9 Type 2 diabetes mellitus without complications; I10 Essential (primary) hypertension; J44.9 Chronic obstructive pulmonary disease, unspecified; K21.9 Gastro-esophageal reflux disease without esophagitis; G47.33 Obstructive sleep apnea (adult) (pediatric); M19.90 Unspecified osteoarthritis, unspecified site; Z79.1 Long term (current) use of non-steroidal anti-inflammatories (NSAID); Z79.4 Long term (current) use of insulin; Z85.3 Personal history of malignant neoplasm of breast; Z87.891 Personal history of nicotine dependence; Z88.0 Allergy status to penicillin
CPT/HCPCS: 99283; 96372; J1170

== ENCOUNTER 2021-01-11 06:09 | Day surgery (SDC) | payer MEDICARE ==
[2021-01-06 10:46] VITALS: BMI 26.9
[2021-01-11 06:32] VITALS: RESP 16; TEMP 97.6
[2021-01-11 06:50] LABS: Glucose,Whole Blood 99 mg/dL (75-99)
[2021-01-11] MEDS ORDERED: fentaNYL (PF) 50 MCG/ML 2 ML AMP ONE (06:57)
[2021-01-11] MEDS ORDERED: IOPAMIDOL M200 10 ML VIAL ONE (06:57)
[2021-01-11] MEDS ORDERED: methylPREDNISolone ACETATE 40 MG/ML 1 ML VIAL ONE (06:57)
[2021-01-11] MEDS ORDERED: MIDAZOLAM 2 MG/2 ML VIAL ONE (06:57)
--- NOTE | 2021-01-11 07:16 | P.PCN ---
Date of Procedure: 01/11/21 Procedure(s) Performed: PREOPERATIVE DIAGNOSIS: 1-Lumbar radiculopathy . 2-lumbar spondylosis with lumbar facet arthropathy. 3-lumbar degenerative disc disease POSTOPERATIVE DIAGNOSIS: Same as preoperative diagnoses. PROCEDURE 1. Transforaminal epidural steroid injection under fluoroscopic guidance at right L5-S1 level. (Fluoroscopy images stored on file in the radiology Department ) 2. Lumbar epidurogram . ANESTHESIA: Local with 1% lidocaine 3 ml , moderate sedation with intravenous Versed 2 mg and fentanyle 100 micrograms. EBL: Minimal PROCEDURE INDICATION: The patient with low back pain and radiculopathy symptoms unresponsive to conservative treatment. PROCEDURE DESCRIPTION / TECHNIQUE: The patient was seen and identified in the preoperative area. Risks, benefits, complications, and alternatives were discussed with the patient. The patient agreed to proceed with the procedure and signed the consent. IV was started, and vital signs were stable. Patient was taken to the OR and time out was completed. The patient was placed in the prone position on procedure table and a pillow was placed under the abdomen to reduce lumbar lordosis. The lumbosacral area was prepped and draped in the usual sterile fashion. Critical pause was taken. Vital signs were closely monitored during the procedure. Conscious sedation was used during the procedure to decrease patient s anxiety. Using oblique fluoroscopy, the chin of the `IeshaFelton dog at right L5-S1 level was identified, and the skin and deeper tissues just below was localized with 1% lidocaine. Subsequently, a 22-gauge 3.5-inch spinal needle was advanced under a tunneled view fluoroscopic guidance just underneath the chin of the `Deseany dog at the right L5-S1 Under lateral fluoroscopy, the needle was then advanced to the posterior border of the interforaminal space. After negative aspiration of CSF and blood and with no paresthesias, 1 mL Isovue 200 contrast dye was injected excellent epidurogram and outlining of the nerve root Subsequently, 3 mL of block solution containing 40 mg Depo-Medrol and 2 mL of 0.9% normal saline PF was injected. Needle was removed . At the end of the procedure, skin was cleansed, and bandages were applied. COMPLICATIONS:none DISPOSITION / PLANS: The patient was placed in a supine position and transferred to the recovery area in a stable condition for observation. There was no evidence of lower extremity motor or sensory deficit after the procedure. Patient was discharged from the recovery room after meeting discharge criteria. Home discharge instructions were given to the patient by the staff. The patient was reexamined prior to discharge.
[2021-01-11] MEDS ORDERED: IV FLUID CONTINUATION 1,000 ML IV ONE (07:19)
--- NOTE | 2021-01-11 08:09 | FL ---
Fluoroscopy HISTORY: Pain 5 seconds fluoroscopy time supplied to the referring clinician. 1 intraoperative C-arm images docume nt the procedure. See dictated report from anesthesia.
[2021-01-11 08:33] VITALS: BP 105/69; PULSE 68
== END 2021-01-11 08:35 | disposition home or self-care (01) ==
LOC: ORPAIN 06:09
PROVIDERS: ATTEND Specialist
DX: M47.26 Other spondylosis with radiculopathy, lumbar region (principal); M51.16 Intervertebral disc disorders with radiculopathy, lumbar region; Z88.1 Allergy status to other antibiotic agents; E11.9 Type 2 diabetes mellitus without complications
CPT/HCPCS: 64483; J2250; J1030; J3010; Q9966; 99152

== ENCOUNTER 2021-01-27 06:18 | Day surgery (SDC) | payer MEDICARE ==
[2021-01-24 15:05] VITALS: BMI 26.9
[2021-01-27 06:54] VITALS: TEMP 97.5
[2021-01-27] MEDS ORDERED: LACTATED RINGERS 1,000 ML IV ONE (07:03)
[2021-01-27 07:05] LABS: Glucose,Whole Blood 127 mg/dL (75-99)
[2021-01-27] MEDS ORDERED: IOPAMIDOL M200 10 ML VIAL ONE (07:26)
[2021-01-27] MEDS ORDERED: methylPREDNISolone ACETATE 40 MG/ML 1 ML VIAL ONE (07:26)
[2021-01-27] MEDS ORDERED: MIDAZOLAM 2 MG/2 ML VIAL ONE (07:26)
[2021-01-27] MEDS ORDERED: fentaNYL (PF) 50 MCG/ML 2 ML AMP ONE (07:26)
--- NOTE | 2021-01-27 07:41 | P.PCN ---
Date of Procedure: 01/27/21 Procedure(s) Performed: PREOPERATIVE DIAGNOSIS: 1-Lumbar radiculopathy . 2-lumbar spondylosis with lumbar facet arthropathy. 3-lumbar degenerative disc disease POSTOPERATIVE DIAGNOSIS: Same as preoperative diagnoses. PROCEDURE 1. Transforaminal epidural steroid injection under fluoroscopic guidance at right L5-S1 level. (Fluoroscopy images stored on file in the radiology Department ) 2. Lumbar epidurogram . ANESTHESIA: Local with 1% lidocaine 3 ml , moderate sedation with intravenous Versed 2 mg and fentanyle 100 micrograms. EBL: Minimal PROCEDURE INDICATION: The patient with low back pain and radiculopathy symptoms unresponsive to conservative treatment. PROCEDURE DESCRIPTION / TECHNIQUE: The patient was seen and identified in the preoperative area. Risks, benefits, complications, and alternatives were discussed with the patient. The patient agreed to proceed with the procedure and signed the consent. IV was started, and vital signs were stable. Patient was taken to the OR and time out was completed. The patient was placed in the prone position on procedure table and a pillow was placed under the abdomen to reduce lumbar lordosis. The lumbosacral area was prepped and draped in the usual sterile fashion. Critical pause was taken. Vital signs were closely monitored during the procedure. Conscious sedation was used during the procedure to decrease patient s anxiety. Using oblique fluoroscopy, the chin of the `IeshaFelton dog at right L5-S1 level was identified, and the skin and deeper tissues just below was localized with 1% lidocaine. Subsequently, a 22-gauge 3.5-inch spinal needle was advanced under a tunneled view fluoroscopic guidance just underneath the chin of the `Deseany dog at the right L5-S1 Under lateral fluoroscopy, the needle was then advanced to the posterior border of the interforaminal space. After negative aspiration of CSF and blood and with no paresthesias, 1 mL Isovue 200 contrast dye was injected excellent epidurogram and outlining of the nerve root Subsequently, 3 mL of block solution containing 40 mg Depo-Medrol and 2 mL of 0.9% normal saline PF was injected. Needle was removed . At the end of the procedure, skin was cleansed, and bandages were applied. COMPLICATIONS:none DISPOSITION / PLANS: The patient was placed in a supine position and transferred to the recovery area in a stable condition for observation. There was no evidence of lower extremity motor or sensory deficit after the procedure. Patient was discharged from the recovery room after meeting discharge criteria. Home discharge instructions were given to the patient by the staff. The patient was reexamined prior to discharge. Patient getting a prescription for MS Contin 15 mg twice a day, and he was getting prescription refill from Dr. Jackson(pain physician) and Dr. Jackson left his practice, and now his practicing, [place], patient did not get pain medication over the last 2 weeks and is currently complaining of severe pain, for this reason I will start patient on Percocet 7.5/325 every 8 hours when necessary pain dispense 90, and patient will be seen in the pain clinic in a few weeks and will do a urine drug screen. Today I talked to the patient about the side effect risk and benefit of opioid ,He understood and agreed
[2021-01-27] MEDS ORDERED: IV FLUID CONTINUATION 1,000 ML IV ONE (07:52)
[2021-01-27 08:10] VITALS: BP 110/66; PULSE 69; RESP 18
--- NOTE | 2021-01-27 08:10 | FL ---
EXAMINATION TYPE: FL guided pain mgmt statistic DATE OF EXAM: 01/27/2021 CLINICAL HISTORY: Low back pain. TECHNIQUE: Fluoroscopy. COMPARISON: None. FINDINGS: Fluoroscopic guidance was provided during pain relief procedure performed by Dr. James . A total of 5 seconds of fluoroscopic time was utilized during the procedure and 1 spot images are acquired. Single image acquired shows needle localization with contrast injection at lower lumbar sp ine off midline. IMPRESSION: As Above.
== END 2021-01-27 08:26 | disposition home or self-care (01) ==
LOC: ORPAIN 06:18
PROVIDERS: ATTEND Specialist
DX: M47.26 Other spondylosis with radiculopathy, lumbar region (principal); M51.16 Intervertebral disc disorders with radiculopathy, lumbar region; Z88.6 Allergy status to analgesic agent; Z88.1 Allergy status to other antibiotic agents
CPT/HCPCS: 64483; J2250; J1030; J3010; Q9966

== ENCOUNTER 2021-02-02 10:47 | Emergency (ER) | payer MEDICARE ==
[2021-02-02 11:02] VITALS: BP 142/89; PULSE 70; RESP 18; TEMP 97.8
[2021-02-02] MEDS ORDERED: ORPHENADRINE 30 MG/ML 2 ML VIAL IM STA (11:15)
[2021-02-02] MEDS ORDERED: MORPHINE SULFATE 4 MG/ML SYRINGE IM STA (11:15)
--- NOTE | 2021-02-02 11:20 | ED ---
General Adult HPI - General Chief complaint: Extremity Injury, Lower Stated complaint: Leg pain Time Seen by Provider: 02/02/21 11:06 Source: patient, RN notes reviewed Mode of arrival: ambulatory Limitations: no limitations - History of Present Illness Initial comments: Patient is a pleasant 71-year-old male presenting to the emergency Department with chronic back and leg pain. Patient states he has been receiving injections recently at the pain clinic. Patient states recently he was walking with return of symptoms. Previously the injection had help him. Patient has discomfort that is moderate to severe from the right sacral region that does radiate down his leg. No new weakness or incontinence. Patient is ambulatory. No loss of sensation. Patient has previously seen by Sarah. been evaluated for his chronic back problems. - Related Data Home Medications Medication Instructions Recorded Confirmed Temazepam [Restoril] 30 mg PO HS 03/05/15 01/27/21 Citalopram Hydrobromide [CeleXA] 40 mg PO DAILY 02/05/16 01/27/21 Levocetirizine Dihydrochloride 5 mg PO HS 07/13/16 01/27/21 [Xyzal] Tamsulosin [Flomax] 0.4 mg PO HS 07/13/16 01/27/21 metFORMIN HCL [Glucophage Xr] 500 mg PO BID 11/27/16 01/27/21 Fluticasone Nasal [place] [Flonase 2 spr EA NOSTRIL BID 03/26/18 01/27/21 Nasal [place]] Gabapentin [Neurontin] 300 mg PO DIRECTED PRN 10/26/18 01/27/21 Insulin Glargine,Hum.rec.anlog See Protocol SQ DIRECTED PRN 08/01/19 01/27/21 [Toureid [place]] lisinopriL [Prinivil] 5 mg PO DAILY 08/01/19 01/27/21 Ibuprofen [Motrin] 800 mg PO HS 08/14/19 01/27/21 Loratadine-Pseudoeph 10-240 mg 1 tab PO DAILY PRN 08/14/19 01/27/21 [Claritin-D 24 Hour] Dicyclomine [Bentyl] 20 mg PO QID 07/21/20 01/27/21 Omeprazole 40 mg PO BID 08/11/20 01/27/21 ALPRAZolam [Xanax] 0.25 mg PO DIRECTED PRN 09/22/20 01/27/21 Diclofenac Sodium Gel [Voltaren 4 gm TOPICAL QID PRN 01/06/21 01/27/21 Gel] Previous Rx's Medication Instructions Recorded oxyCODONE-APAP 7.5-325MG [Percocet 1 tab PO Q8HR PRN 30 Days #90 tab 01/27/21 7.5-325 mg] Allergies Allergy/AdvReac Type Severity Reaction Status Date / Time cephalexin monohydrate Allergy Rash/Hives Verified 02/02/21 11:02 [From Keflex] clarithromycin [From Biaxin] Allergy Unknown Verified 02/02/21 11:02 gentamicin [Gentamicin] Allergy Unknown Verified 02/02/21 11:02 naproxen Allergy Unknown Verified 02/02/21 11:02 Penicillins Allergy Anaphylaxis Verified 02/02/21 11:02 Sulfa (Sulfonamide Allergy Rash/Hives Verified 02/02/21 11:02 Antibiotics) promethazine AdvReac Nausea & Verified 02/02/21 11:02 Vomiting Review of Systems ROS Statement: Those systems with pertinent positive or pertinent negative responses have been documented in the HPI. ROS Other: All systems not noted in ROS Statement are negative. Constitutional: Denies: fever Eyes: Denies: eye pain ENT: Denies: ear pain Respiratory: Denies: cough Cardiovascular: Denies: chest pain Endocrine: Denies: fatigue Gastrointestinal: Denies: abdominal pain Genitourinary: Denies: dysuria Musculoskeletal: Reports: as per HPI, back pain Skin: Denies: rash Past Medical History Past Medical History: Cancer, COPD, Diabetes Mellitus, GERD/Reflux, Hearing Disorder / Deafness, Hypertension, Osteoarthritis (OA), Prostate Disorder, Sleep Apnea/CPAP/BIPAP Additional Past Medical History / Comment(s): Optic migraines, diverticulosis, kidney stones, neuropathy hands & feet, low BACK PAIN. 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 CPAP use, bilateral hearing aid use, wears brace on bilateral legs. History of Any Multi-Drug Resistant Organisms: None Reported Date of last positivie culture/infection: none MDRO Source:: none Past Surgical History: Back Surgery, Breast Surgery, Hernia Repair, Joint Replacement Additional Past Surgical History / Comment(s): EGD . Laparoscopic Mireya Fundoplasty, CYSTOSCOPY AND LITHOTRIPSY LEfT URETERAL STENT-SINCE REMOVED. RIGHT BREAST BIOPSY, TOTAL LEFT KNEE REPLACEMENT, LEFT FOOT SURGERY, BILATERAL INGUINAL HERNIA REPAIR, PERCUTANEOUS NEPHROLITHOTOMY, BILATERAL hand surgery, back procedure for nerve endings and cortisone injections, ESOPHGEAL DILATION, eye surgery to remove tumors, LUMPECTOMY RIGHT BREAST. Past Anesthesia/Blood Transfusion Reactions: No Reported Reaction Additional Past Anesthesia/Blood Transfusion Reaction / Comment(s): NEVER HAD ANY BLOOD TRANSFUSIONS. Past Psychological History: No Psychological Hx Reported Smoking Status: Former smoker - Past Family History Father Family Medical History: Cancer Mother Family Medical History: No Reported History Additional Family Medical History / Comment(s): . General Exam Limitations: no limitations General appearance: alert, in no apparent distress Head exam: Present: normocephalic Eye exam: Present: normal appearance Respiratory exam: Present: normal lung sounds bilaterally Cardiovascular Exam: Present: regular rate, normal rhythm Expanded Peripheral pulses: 2+: Posterior Tibialis (R), Posterior Tibialis (L), Dorsalis Pedis (R), Dorsalis Pedis (L) GI/Abdominal exam: Present: soft. Absent: tenderness Extremities exam: Present: normal inspection. Absent: pedal edema, calf tenderness Back exam: Present: normal inspection, tenderness (Right sciatic region) Neurological exam: Present: alert, normal gait. Absent: motor sensory deficit Expanded Sensory exam: Lower Extremity Light Touch: Normal Motor strength exam: RLE: 5, LLE: 5 Psychiatric exam: Present: normal affect, normal mood Skin exam: Present: normal color Course Vital Signs 02/02/21 10:58 Temperature 97.8 F Pulse Rate 70 Respiratory 18 Rate Blood Pressure 142/89 O2 Sat by Pulse 97 Oximetry Disposition Clinical Impression: Sciatic leg pain Disposition: HOME SELF-CARE Condition: Stable Instructions (If sedation given, give patient instructions): Sciatica (ED) Additional Instructions: No driving. Please do follow-up with primary care physician in the next day or 2 for recheck. Return for weakness, loss of control of bowel or bladder, loss of sensation, fever, worsening or changing symptoms or other concerns. Please do follow-up with your pain doctor in the next day or 2. Is patient prescribed a controlled substance at d/c from ED?: No Referrals: Siria Hastings MD [Primary Care Provider] - 1-2 days Rosibel Solorio, [Doctor of Osteopathic Medicine] - 1-2 days Time of Disposition: 11:19
== END 2021-02-02 12:48 | disposition home or self-care (01) ==
LOC: EC 10:47
DX: M54.41 Lumbago with sciatica, right side (principal); M79.604 Pain in right leg; J44.9 Chronic obstructive pulmonary disease, unspecified; K21.9 Gastro-esophageal reflux disease without esophagitis; M19.90 Unspecified osteoarthritis, unspecified site; I10 Essential (primary) hypertension; E11.9 Type 2 diabetes mellitus without complications; G43.909 Migraine, unspecified, not intractable, without status migrainosus; G47.30 Sleep apnea, unspecified; H91.90 Unspecified hearing loss, unspecified ear; Z87.442 Personal history of urinary calculi; Z85.3 Personal history of malignant neoplasm of breast; Z87.891 Personal history of nicotine dependence; Z79.4 Long term (current) use of insulin; Z79.1 Long term (current) use of non-steroidal anti-inflammatories (NSAID); Z88.0 Allergy status to penicillin
CPT/HCPCS: 99283; 96372 ×2; J2270; J2360

== ENCOUNTER → 2021-02-09 | Outpatient (CLI) | payer MEDICARE ==
--- NOTE | 2021-02-09 13:48 | P.PN ---
Subjective Progress Note Date: 02/09/21 This is a 71-year-old gentleman with history of chronic lower back pain with radiation to the right leg down to the mid calf area. The patient had multiple injections previously which gave him significantly for pain however it did not last for long. The patient has been having increasing low back pain with occasional nocturnal pain however he denies any weight loss recently. He tried Percocet which made him sleepy and did not help his pain. The patient states that he used to be on 1 pill a day of morphine when he was treated by Dr. Jackson and it was working well for him. Patient denies new-onset weakness, bowel/bladder incontinence, or any other signs or symptoms of cauda equina syndrome. There are no signs of acute intoxication, and no indications of medication diversion or overuse. In addition to above, 13-point review of systems is also negative for chest pain, shortness of breath, changes in vision, changes in hearing, new onset weakness, abdominal pain, diarrhea, extreme fatigue, malaise, fever, skin changes, homicidal or suicidal ideation, or bowel or bladder incontinence. Vital Signs: Reviewed in EMR Gen: AAOx3, NAD HEENT: PERRLA,hearing grossly normal Pulm: resp unlabored Neck: supple, trachea midline Neuro exam of the lower extremities: Normal muscle strength bilaterally Straight leg raising test: Positive on the right side Tyrese's test: Range of motion of the lumbar spine: Facet loading test: Tenderness in the paravertebral musculature: Neuro: CN II-XII grossly intact, Imaging: Reviewed in EMR/chart Assessment: Right lumbar radiculopathy due to severe neuroforaminal stenosis responsive temporarily to epidural steroid injections Lumbar spondylosis without myelopathy Plan: 1. Explanation: Opioid and psychological risk scores were reviewed. Diagnoses, prognoses, and multiple treatment options including but not limited to physical therapy, interventional therapies, adjuvant medical therapies, narcotic medication therapies, and surgery were discussed with the patient and all questions were answered to the patient's satisfaction. 2. Opioid agreement: Signed with the patient and the patient is warned not to use opioids while driving or before driving and not to combine opioids with benzodiazepines or alcohol. 3. Counseling: The patient was counseled extensively on SMOKING CESSATION, BODY MASS INDEX, EXERCISE. Specifically, the patient was instructed regarding the importance of smoking cessation, obesity, and exercise in the context of both chronic pain and overall health. 4. Procedures: None for now but he might benefit from lumbar medial branch RFA and another epidural and the future depending on his symptoms of the time. 5. Consultations: None 6. Investigations: None 7. Medications: The patient is reliable and he is at low risk for opioid abuse that's why I'm going to give him prescription for morphine sulfate 15 mg IR only 1 pill daily when necessary pain. 8. Disposition: Return to clinic in 4 weeks for follow-up 9. Maps were reviewed and were appropriate. Controlled Substance Measures Is patient prescribed a controlled substance at discharge?: Yes When asked, does pt state using other controlled substances?: No If prescribed controlled substance>3 days was MAPS reviewed?: Yes If Rx opioid, was Start Talking consent form obtained?: Yes If opioid is for acute pain is fill amount 7 days or less?: No Was information provided regarding opioid addiction?: Yes Objective - Vital Signs Vital signs: Vital Signs Temp 98.3 F 02/09/21 13:27 Pulse 81 02/09/21 13:27 Resp 18 02/09/21 13:27 BP 142/67 02/09/21 13:27 Pulse Ox 96 02/09/21 13:27
== END ==
CPT/HCPCS: 99211

== ENCOUNTER 2021-03-20 09:55 | Inpatient (IN) | payer MEDICARE ==
[2021-03-20] MEDS ORDERED: IPRATROPIUM-ALBUTEROL 3 ML NEB INHALATION STA (10:19)
--- NOTE | 2021-03-20 10:37 | ED ---
SOB HPI - General Source: patient, EMS Mode of arrival: EMS Limitations: no limitations <Ximena Connelly - Last Filed: 03/20/21 12:15> <Cristhian Méndez - Last Filed: 03/20/21 12:40> - General Chief Complaint: Shortness of Breath Stated Complaint: SOB Time Seen by Provider: 03/20/21 10:03 - History of Present Illness Initial Comments: Patient is a 71-year-old male with history of COPD, diabetes, presenting to emergency Department via EMS with complaints of increasing shortness of breath over the past few days. He states he was recently admitted at another hospital for diverticulitis last week, recovered well and over the past week has been having increasing shortness of breath while going up and down his stairs. Patient states he has to go upstairs to use the restroom and when he gets the top yes to stop for a while to catch his breath. He does have history of COPD but is not on home O2. He denies history of blood clots, he is not on a blood thinner. He denies any chest pains, no abdominal pain, no nausea or vomiting. He states he is having a little bit of swelling in his ankles buddies been hav ing this on and off for a few months now. He denies being dizzy. Has no further complaints at this time. Upon arrival to the ER, he is hypertensive at 158/100, he is on 4 L standing at 94%, afebrile. (Ximena Connelly) - Related Data Home Medications Medication Instructions Recorded Confirmed Temazepam [Restoril] 30 mg PO HS 03/05/15 02/09/21 Citalopram Hydrobromide [CeleXA] 40 mg PO DAILY 02/05/16 02/09/21 Levocetirizine Dihydrochloride 5 mg PO HS 07/13/16 02/09/21 [Xyzal] Tamsulosin [Flomax] 0.4 mg PO HS 07/13/16 02/09/21 metFORMIN HCL [Glucophage Xr] 500 mg PO BID 11/27/16 02/09/21 Fluticasone Nasal [place] [Flonase 2 spr EA NOSTRIL BID 03/26/18 02/09/21 Nasal [place]] Gabapentin [Neurontin] 300 mg PO DIRECTED PRN 10/26/18 02/09/21 Insulin Glargine,Hum.rec.anlog See Protocol SQ DIRECTED PRN 08/01/19 02/09/21 [Toujeo Solostar] lisinopriL [Prinivil] 5 mg PO DAILY 08/01/19 02/09/21 Ibuprofen [Motrin] 800 mg PO HS 08/14/19 02/09/21 Loratadine-Pseudoeph 10-240 mg 1 tab PO DAILY PRN 08/14/19 02/09/21 [Claritin-D 24 Hour] Dicyclomine [Bentyl] 20 mg PO QID 07/21/20 02/09/21 Omeprazole 40 mg PO BID 08/11/20 02/09/21 ALPRAZolam [Xanax] 0.25 mg PO DIRECTED PRN 09/22/20 02/09/21 Diclofenac Sodium Gel [Voltaren 4 gm TOPICAL QID PRN 01/06/21 02/09/21 Gel] Morphine Sulfate Ir [MSIR] 15 mg PO Q8HR PRN 02/09/21 02/09/21 Allergies Allergy/AdvReac Type Severity Reaction Status Date / Time cephalexin monohydrate Allergy Rash/Hives Verified 03/20/21 12:25 [From Keflex] clarithromycin [From Biaxin] Allergy Unknown Verified 03/20/21 12:25 gentamicin [Gentamicin] Allergy Unknown Verified 03/20/21 12:25 naproxen Allergy Unknown Verified 03/20/21 12:25 Penicillins Allergy Anaphylaxis Verified 03/20/21 12:25 Sulfa (Sulfonamide Allergy Rash/Hives Verified 03/20/21 12:25 Antibiotics) promethazine AdvReac Nausea & Verified 03/20/21 12:25 Vomiting Review of Systems ROS Other: All systems not noted in ROS Statement are negative. <Ximena Connelly - Last Filed: 03/20/21 12:15> ROS Other: All systems not noted in ROS Statement are negative. <Cristhian Méndez - Last Filed: 03/20/21 12:40> ROS Statement: Those systems with pertinent positive or pertinent negative responses have been documented in the HPI. Past Medical History Past Medical History: Cancer, COPD, Diabetes Mellitus, GERD/Reflux, Hearing Disorder / Deafness, Hypertension, Osteoarthritis (OA), Prostate Disorder, Sleep Apnea/CPAP/BIPAP Additional Past Medical History / Comment(s): Optic migraines, diverticulosis, kidney stones, neuropathy hands & feet, low BACK PAIN. 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 CPAP use, bilateral hearing aid use, wears brace on bilateral legs. History of Any Multi-Drug Resistant Organisms: None Reported Date of last positivie culture/infection: none MDRO Source:: none Past Surgical History: Back Surgery, Breast Surgery, Hernia Repair, Joint Replacement Additional Past Surgical History / Comment(s): EGD . Laparoscopic Mireya Fundoplasty, CYSTOSCOPY AND LITHOTRIPSY LEfT URETERAL STENT-SINCE REMOVED. RIGHT BREAST BIOPSY, TOTAL LEFT KNEE REPLACEMENT, LEFT FOOT SURGERY, BILATERAL INGUINAL HERNIA REPAIR, PERCUTANEOUS NEPHROLITHOTOMY, BILATERAL hand surgery, back procedure for nerve endings and cortisone injections, ESOPHGEAL DILATION, eye surgery to remove tumors, LUMPECTOMY RIGHT BREAST. Past Anesthesia/Blood Transfusion Reactions: No Reported Reaction Additional Past Anesthesia/Blood Transfusion Reaction / Comment(s): NEVER HAD ANY BLOOD TRANSFUSIONS. Past Psychological History: No Psychological Hx Reported Smoking Status: Former smoker Past Alcohol Use History: None Reported Past Drug Use History: None Reported - Past Family History Father Family Medical History: Cancer Mother Family Medical History: No Reported History Additional Family Medical History / Comment(s): . <Ximena Connelly L - Last Filed: 03/20/21 12:15> General Exam Limitations: no limitations <Ximena Connelly - Last Filed: 03/20/21 12:15> - General Exam Comments Initial Comments: GENERAL: Patient is well-developed and well-nourished. Patient is nontoxic and in no acute distress. HEAD: Atraumatic, normocephalic. EYES: Pupils equal round and reactive to light, extraocular movements intact, sclera anicteric, conjunctiva are normal. Eyelids were unremarkable. ENT: TMs normal, nares patent, oropharynx clear without exudates. Moist mucous membranes. NECK: Normal range of motion, supple without lymphadenopathy or JVD. LUNGS: Unlabored respirations. Breath sounds clear to auscultation bilaterally and equal. No wheezes rales or rhonchi. HEART: Regular rate and rhythm without murmurs, rubs or gallops. ABDOMEN: Soft, nontender, normoactive bowel sounds. No guarding, no rebound. No masses appreciated. : Deferred MUSCULOSKELETAL: Normal extremities with adequate strength and normal range of motion. Mild bilateral ankle edema No clubbing or cyanosis. NEUROLOGICAL: Patient is alert and oriented x 3. Motor and sensory are also intact. Cranial nerves II through XII grossly intact. Symmetrical smile. Normal speech, normal gait. PSYCH: Normal mood, normal affect. SKIN: Warm, Dry, normal turgor, no rashes or lesions noted. (Ximena Connelly) Course Vital Signs 03/20/21 03/20/21 03/20/21 09:57 11:29 11:40 Temperature 98.4 F Pulse Rate 74 82 87 Respiratory 18 Rate Blood Pressure 158/100 O2 Sat by Pulse 94 L Oximetry Medical Decision Making - Lab Data Result diagrams: 03/20/21 10:41 03/20/21 10:41 <Ximena Connelly - Last Filed: 03/20/21 12:15> - Lab Data Result diagrams: 03/20/21 10:41 03/20/21 10:41 <Cristhian Méndez - Last Filed: 03/20/21 12:40> - Medical Decision Making Patient is a 71-year-old male with history of COPD, presenting via EMS for increasing dyspnea with exertion over the past week. Not currently on home O2. He did arrive at 94% on 4 L, hypertensive at 158/100, rest of vitals normal. EKG shows some T-wave inversions, no other acute process. No chest pain. Labs show a slight white count 13.7, hemoglobin is stable, troponin is elevated 0.122, BNP is 8000. Chest x-ray is consistent with CHF, there are small bilateral pleural effusions. Patient will be admitted for CHF, elevated troponin. Patient is not currently on a blood thinner, will start him on low- dose heparin, full-strength aspirin given. Also start Lasix and Nitropaste. Patient accepted by Dr. Villa, with consults to pulmonology and cardiology. Case discussed in detail with Dr. Méndez. (Ximena Connelly) Patient was reevaluated and reexamined by myself, Dr. éMndez. Patient resting comfortably in bed. No chest pain. No history of CHF previously. Patient updated on results and plan. I do agree with PA findings. This includes diagnostic interpretation and treatment plan. (Cristhian Méndez) - Lab Data Lab Results 03/20/21 03/20/21 03/20/21 Range/Units 10:41 10:41 10:41 WBC 13.7 H (3.8-10.6) k/uL RBC 4.24 L (4.30-5.90) m/uL Hgb 12.6 L (13.0-17.5) gm/dL Hct 40.4 (39.0-53.0) % MCV 95.4 (80.0-100.0) fL MCH 29.8 (25.0-35.0) pg MCHC 31.3 (31.0-37.0) g/dL RDW 23.2 H (11.5-15.5) % Plt Count 390 (150-450) k/uL MPV 8.2 Neutrophils % 68 % Lymphocytes % 17 % Monocytes % 10 % Eosinophils % 1 % Basophils % 1 % Neutrophils # 9.4 H (1.3-7.7) k/uL Lymphocytes # 2.3 (1.0-4.8) k/uL Monocytes # 1.4 H (0-1.0) k/uL Eosinophils # 0.1 (0-0.7) k/uL Basophils # 0.1 (0-0.2) k/uL Hypochromasia Slight Poikilocytosis Slight Anisocytosis Moderate Microcytosis Slight Macrocytosis Slight PT 12.4 H (9.0-12.0) sec INR 1.2 H (<1.2) APTT 22.0 (22.0-30.0) sec D-Dimer 0.91 H (<0.60) mg/L FEU Sodium (137-145) mmol/L Potassium (3.5-5.1) mmol/L Chloride (98-107) mmol/L Carbon Dioxide (22-30) mmol/L Anion Gap mmol/L BUN (9-20) mg/dL Creatinine (0.66-1.25) mg/dL Est GFR (CKD-EPI)AfAm (>60 ml/min/1.73 sqM) Est GFR (CKD-EPI)NonAf (>60 ml/min/1.73 sqM) Glucose (74-99) mg/dL Plasma Lactic Acid Elvin (0.7-2.0) mmol/L Calcium (8.4-10.2) mg/dL Magnesium (1.6-2.3) mg/dL Total Bilirubin (0.2-1.3) mg/dL AST (17-59) U/L ALT (4-49) U/L Alkaline Phosphatase (38-126) U/L Troponin I (0.000-0.034) ng/mL NT-Pro-B Natriuret Pep pg/mL Total Protein (6.3-8.2) g/dL Albumin (3.5-5.0) g/dL Urine Color Light Yellow Urine Appearance Clear (Clear) Urine pH 6.0 (5.0-8.0) Ur Specific [place] 1.005 (1.001-1.035) Urine Protein Negative (Negative) Urine Glucose (UA) Negative (Negative) Urine Ketones Negative (Negative) Urine Blood Negative (Negative) Urine Nitrite Negative (Negative) Urine Bilirubin Negative (Negative) Urine Urobilinogen <2.0 (<2.0) mg/dL Ur Leukocyte Esterase Negative (Negative) 03/20/21 03/20/21 03/20/21 Range/Units 10:41 10:41 10:41 WBC (3.8-10.6) k/uL RBC (4.30-5.90) m/uL Hgb (13.0-17.5) gm/dL Hct (39.0-53.0) % MCV (80.0-100.0) fL MCH (25.0-35.0) pg MCHC (31.0-37.0) g/dL RDW (11.5-15.5) % Plt Count (150-450) k/uL MPV Neutrophils % % Lymphocytes % % Monocytes % % Eosinophils % % Basophils % % Neutrophils # (1.3-7.7) k/uL Lymphocytes # (1.0-4.8) k/uL Monocytes # (0-1.0) k/uL Eosinophils # (0-0.7) k/uL Basophils # (0-0.2) k/uL Hypochromasia Poikilocytosis Anisocytosis Microcytosis Macrocytosis PT (9.0-12.0) sec INR (<1.2) APTT (22.0-30.0) sec D-Dimer (<0.60) mg/L FEU Sodium 141 (137-145) mmol/L Potassium 3.7 (3.5-5.1) mmol/L Chloride 106 (98-107) mmol/L Carbon Dioxide 27 (22-30) mmol/L Anion Gap 8 mmol/L BUN 15 (9-20) mg/dL Creatinine 0.65 L (0.66-1.25) mg/dL Est GFR (CKD-EPI)AfAm >90 (>60 ml/min/1.73 sqM) Est GFR (CKD-EPI)NonAf >90 (>60 ml/min/1.73 sqM) Glucose 95 (74-99) mg/dL Plasma Lactic Acid Elvin 1.8 (0.7-2.0) mmol/L Calcium 9.3 (8.4-10.2) mg/dL Magnesium 1.7 (1.6-2.3) mg/dL Total Bilirubin 0.6 (0.2-1.3) mg/dL AST 36 (17-59) U/L ALT 30 (4-49) U/L Alkaline Phosphatase 256 H (38-126) U/L Troponin I 0.122 H* (0.000-0.034) ng/mL NT-Pro-B Natriuret Pep pg/mL Total Protein 6.1 L (6.3-8.2) g/dL Albumin 4.0 (3.5-5.0) g/dL Urine Color Urine Appearance (Clear) Urine pH (5.0-8.0) Ur Specific [place] (1.001-1.035) Urine Protein (Negative) Urine Glucose (UA) (Negative) Urine Ketones (Negative) Urine Blood (Negative) Urine Nitrite (Negative) Urine Bilirubin (Negative) Urine Urobilinogen (<2.0) mg/dL Ur Leukocyte Esterase (Negative) 03/20/21 Range/Units 10:41 WBC (3.8-10.6) k/uL RBC (4.30-5.90) m/uL Hgb (13.0-17.5) gm/dL Hct (39.0-53.0) % MCV (80.0-100.0) fL MCH (25.0-35.0) pg MCHC (31.0-37.0) g/dL RDW (11.5-15.5) % Plt Count (150-450) k/uL MPV Neutrophils % % Lymphocytes % % Monocytes % % Eosinophils % % Basophils % % Neutrophils # (1.3-7.7) k/uL Lymphocytes # (1.0-4.8) k/uL Monocytes # (0-1.0) k/uL Eosinophils # (0-0.7) k/uL Basophils # (0-0.2) k/uL Hypochromasia Poikilocytosis Anisocytosis Microcytosis Macrocytosis PT (9.0-12.0) sec INR (<1.2) APTT (22.0-30.0) sec D-Dimer (<0.60) mg/L FEU Sodium (137-145) mmol/L Potassium (3.5-5.1) mmol/L Chloride (98-107) mmol/L Carbon Dioxide (22-30) mmol/L Anion Gap mmol/L BUN (9-20) mg/dL Creatinine (0.66-1.25) mg/dL Est GFR (CKD-EPI)AfAm (>60 ml/min/1.73 sqM) Est GFR (CKD-EPI)NonAf (>60 ml/min/1.73 sqM) Glucose (74-99) mg/dL Plasma Lactic Acid Elvin (0.7-2.0) mmol/L Calcium (8.4-10.2) mg/dL Magnesium (1.6-2.3) mg/dL Total Bilirubin (0.2-1.3) mg/dL AST (17-59) U/L ALT (4-49) U/L Alkaline Phosphatase (38-126) U/L Troponin I (0.000-0.034) ng/mL NT-Pro-B Natriuret Pep 8210 pg/mL Total Protein (6.3-8.2) g/dL Albumin (3.5-5.0) g/dL Urine Color Urine Appearance (Clear) Urine pH (5.0-8.0) Ur Specific [place] (1.001-1.035) Urine Protein (Negative) Urine Glucose (UA) (Negative) Urine Ketones (Negative) Urine Blood (Negative) Urine Nitrite (Negative) Urine Bilirubin (Negative) Urine Urobilinogen (<2.0) mg/dL Ur Leukocyte Esterase (Negative) - EKG Data EKG Comments: Normal sinus rhythm, possible left atrial enlargement, left axis deviation, cannot rule out anterior septal infarct age undetermined, T-wave abnormalities, this is a change from his previous on 09/13/2018. Ventricular rate 75, VT interval 200, QTC 414. (Ximena Connelly) Disposition Is patient prescribed a controlled substance at d/c from ED?: No Decision Date: 03/20/21 Decision Time: 12:03 <Ximena Connelly - Last Filed: 03/20/21 12:15> <Cristhian Méndez - Last Filed: 03/20/21 12:40> Clinical Impression: Congestive heart failure, Elevated troponin Disposition: ADMITTED IP TO THIS HOSP Condition: Stable
[2021-03-20 11:09] LABS: Anisocytosis Moderate; Basophils # (A) 0.1 k/uL (0-0.2); Basophils % (A) 1 %; Eosinophils # (A) 0.1 k/uL (0-0.7); Eosinophils % (A) 1 %; HCT 40.4 % (39.0-53.0); HGB 12.6 gm/dL (13.0-17.5); Hypochromasia Slight; Lymphocytes # (A) 2.3 k/uL (1.0-4.8); Lymphocytes % (A) 17 %; MCH 29.8 pg (25.0-35.0); MCHC 31.3 g/dL (31.0-37.0); MCV 95.4 fL (80.0-100.0); Macrocytosis Slight; Mean Platelet Volume 8.2; Microcytosis Slight; Monocytes # (A) 1.4 k/uL (0-1.0); Monocytes % (A) 10 %; Neutrophils # (A) 9.4 k/uL (1.3-7.7); Neutrophils % (A) 68 %; Platelet Count 390 k/uL (150-450); Poikilocytosis Slight; RBC 4.24 m/uL (4.30-5.90); RDW 23.2 % (11.5-15.5); WBC 13.7 k/uL (3.8-10.6)
[2021-03-20 11:10] LABS: Appearance,Urine Clear (Clear); Bilirubin,Urine Negative (Negative); Blood,Urine Negative (Negative); Color,Urine Light Yellow; Glucose,Urine (UA) Negative (Negative); Ketones,Urine Negative (Negative); Leukocyte Esterase,Urine Negative (Negative); Nitrite,Urine Negative (Negative); Protein,Urine Negative (Negative); Specific Gravity,Urine 1.005 (1.001-1.035); Urobilinogen,Urine <2.0 mg/dL (<2.0)
--- NOTE | 2021-03-20 11:10 | XR ---
EXAMINATION TYPE: XR chest 2V DATE OF EXAM: 03/20/2021 COMPARISON: 09/13/2018 HISTORY: Shortness of breath TECHNIQUE: Frontal and lateral views of the chest are obtained. FINDINGS: There is diffuse interstitial opacity consistent with mild interstitial edema and pulmonar y vascular congestion. There are small bilateral pleural effusions. There is no pneumothorax. The oss eous structures are intact. IMPRESSION: Findings most consistent with CHF. Clinical correlation and short-term follow-up to resolution is rec ommended. IMPRESSION: No acute cardiopulmonary process.
[2021-03-20 11:20] LABS: ALT 30 U/L (4-49); AST 36 U/L (17-59); African American GFR (CKD) >90 (>60 ml/min/1.73 sqM); Alkaline Phosphatase 256 U/L (38-126); Anion Gap 8 mmol/L; Blood Urea Nitrogen 15 mg/dL (9-20); Calcium 9.3 mg/dL (8.4-10.2); Carbon Dioxide 27 mmol/L (22-30); Chloride 106 mmol/L (98-107); Glucose 95 mg/dL (74-99); Magnesium 1.7 mg/dL (1.6-2.3); Non-African American GFR(CKD) >90 (>60 ml/min/1.73 sqM); Potassium 3.7 mmol/L (3.5-5.1); Sodium 141 mmol/L (137-145); Total Bilirubin 0.6 mg/dL (0.2-1.3); Total Protein 6.1 g/dL (6.3-8.2)
[2021-03-20] MEDS ORDERED: ASPIRIN 325 MG TAB PO STA (11:55)
[2021-03-20 11:58] LABS: INR 1.2 (<1.2)
[2021-03-20 11:59] LABS: Prothrombin Time 12.4 sec (9.0-12.0)
[2021-03-20 12:01] LABS: D-Dimer 0.91 mg/L FEU (<0.60)
[2021-03-20] MEDS ORDERED: HEPARIN SODIUM 1,000 UN/ML (10ML VL) IV PRN (12:02)
[2021-03-20] MEDS ORDERED: HEPARIN SODIUM 1,000 UN/ML (10ML VL) IV ONE (12:02)
--- NOTE | 2021-03-20 12:31 | P.HPIM ---
History of Present Illness H&P Date: 03/20/21 Chief Complaint: Shortness of breath This is a 71-year-old male patient who presented to the ER with complaints of shortness of breath. Patient was recently hospitalized at [facility] for diverticulitis which she was treated with IV antibiotics. Patient reports that he has completed a course of antibiotics and has had significant improvement in regards to abdominal issues. Patient reports that the shortness of breath has been progressively getting worse for the past few days. Patient reports he has a increased shortness of breath with activity. Patient denies any recent fever or cough. Patient also reports that he has occasional increased lower extremity edema. Patient does have past medical history of GERD, COPD, diabetes mellitus, deafness, hypertension, prostate disorder, diverticulitis, chronic pain and sleep apnea. BNP elevated at 8210. Initial troponin 0.122. At this time cardiology services will be consulted. Patient was started on heparin drip. Patient started on IV Lasix. Patient denies any chest pain. Patient denies nausea vomiting or diarrhea. Patient denies any urinary burning or frequency. Review of Systems Please refer to HPI otherwise unremarkable Past Medical History Past Medical History: Cancer, COPD, Diabetes Mellitus, GERD/Reflux, Hearing Disorder / Deafness, Hypertension, Osteoarthritis (OA), Prostate Disorder, Sleep Apnea/CPAP/BIPAP Additional Past Medical History / Comment(s): Optic migraines, diverticulosis, kidney stones, neuropathy hands & feet, low BACK PAIN. 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 CPAP use, bilateral hearing aid use, wears brace on bilateral legs. History of Any Multi-Drug Resistant Organisms: None Reported Date of last positivie culture/infection: none MDRO Source:: none Past Surgical History: Back Surgery, Breast Surgery, Hernia Repair, Joint Replacement Additional Past Surgical History / Comment(s): EGD . Laparoscopic Mireya Fundoplasty, CYSTOSCOPY AND LITHOTRIPSY LEfT URETERAL STENT-SINCE REMOVED. RIGHT BREAST BIOPSY, TOTAL LEFT KNEE REPLACEMENT, LEFT FOOT SURGERY, BILATERAL INGUINAL HERNIA REPAIR, PERCUTANEOUS NEPHROLITHOTOMY, BILATERAL hand surgery, back procedure for nerve endings and cortisone injections, ESOPHGEAL DILATION, eye surgery to remove tumors, LUMPECTOMY RIGHT BREAST. Past Anesthesia/Blood Transfusion Reactions: No Reported Reaction Additional Past Anesthesia/Blood Transfusion Reaction / Comment(s): NEVER HAD ANY BLOOD TRANSFUSIONS. Past Psychological History: No Psychological Hx Reported Smoking Status: Former smoker Past Alcohol Use History: None Reported Past Drug Use History: None Reported - Past Family History Father Family Medical History: Cancer Mother Family Medical History: No Reported History Additional Family Medical History / Comment(s): . Medications and Allergies Home Medications Medication Instructions Recorded Confirmed Type Temazepam [Restoril] 30 mg PO HS 03/05/15 02/09/21 History Citalopram Hydrobromide [CeleXA] 40 mg PO DAILY 02/05/16 02/09/21 History Levocetirizine Dihydrochloride 5 mg PO HS 07/13/16 02/09/21 History [Xyzal] Tamsulosin [Flomax] 0.4 mg PO HS 07/13/16 02/09/21 History metFORMIN HCL [Glucophage Xr] 500 mg PO BID 11/27/16 02/09/21 History Fluticasone Nasal [place] [Flonase 2 spr EA NOSTRIL BID 03/26/18 02/09/21 History Nasal [place]] Gabapentin [Neurontin] 300 mg PO DIRECTED PRN 10/26/18 02/09/21 History Insulin Glargine,Hum.rec.anlog See Protocol SQ DIRECTED PRN 08/01/19 02/09/21 History [Toujeo Solostar] lisinopriL [Prinivil] 5 mg PO DAILY 08/01/19 02/09/21 History Ibuprofen [Motrin] 800 mg PO HS 08/14/19 02/09/21 History Loratadine-Pseudoeph 10-240 mg 1 tab PO DAILY PRN 08/14/19 02/09/21 History [Claritin-D 24 Hour] Dicyclomine [Bentyl] 20 mg PO QID 07/21/20 02/09/21 History Omeprazole 40 mg PO BID 08/11/20 02/09/21 History ALPRAZolam [Xanax] 0.25 mg PO DIRECTED PRN 09/22/20 02/09/21 History Diclofenac Sodium Gel [Voltaren 4 gm TOPICAL QID PRN 01/06/21 02/09/21 History Gel] Morphine Sulfate Ir [MSIR] 15 mg PO Q8HR PRN 02/09/21 02/09/21 History Allergies Allergy/AdvReac Type Severity Reaction Status Date / Time cephalexin monohydrate Allergy Rash/Hives Verified 02/03/21 15:02 [From Keflex] clarithromycin [From Biaxin] Allergy Unknown Verified 02/03/21 15:02 gentamicin [Gentamicin] Allergy Unknown Verified 02/03/21 15:02 naproxen Allergy Unknown Verified 02/03/21 15:02 Penicillins Allergy Anaphylaxis Verified 02/03/21 15:02 Sulfa (Sulfonamide Allergy Rash/Hives Verified 02/03/21 15:02 Antibiotics) promethazine AdvReac Nausea & Verified 02/03/21 15:02 Vomiting Physical Exam Vitals: Vital Signs Temp Pulse Resp BP Pulse Ox 03/20/21 11:40 87 03/20/21 11:29 82 03/20/21 09:57 98.4 F 74 18 158/100 94 L Intake and Output 03/19/21 03/20/21 03/20/21 22:59 06:59 14:59 Other: Weight 78.471 kg Head normocephalic Neck supple Lungs clear to auscultation bilaterally no wheezing or crackles Heart regular rate and rhythm S1-S2, no rub or gallop Abdomen is soft nontender nondistended positive bowel sounds no hepatosplenomegaly Extremities no edema Neuro alert and orientated to 3 Results CBC & Chem 7: 03/20/21 10:41 03/20/21 10:41 Labs: Abnormal Lab Results - Last 24 Hours (Table) 03/20/21 03/20/21 03/20/21 Range/Units 10:41 10:41 10:41 WBC 13.7 H (3.8-10.6) k/uL RBC 4.24 L (4.30-5.90) m/uL Hgb 12.6 L (13.0-17.5) gm/dL RDW 23.2 H (11.5-15.5) % Neutrophils # 9.4 H (1.3-7.7) k/uL Monocytes # 1.4 H (0-1.0) k/uL PT 12.4 H (9.0-12.0) sec INR 1.2 H (<1.2) D-Dimer 0.91 H (<0.60) mg/L FEU Creatinine 0.65 L (0.66-1.25) mg/dL Alkaline Phosphatase 256 H (38-126) U/L Troponin I (0.000-0.034) ng/mL Total Protein 6.1 L (6.3-8.2) g/dL 03/20/21 Range/Units 10:41 WBC (3.8-10.6) k/uL RBC (4.30-5.90) m/uL Hgb (13.0-17.5) gm/dL RDW (11.5-15.5) % Neutrophils # (1.3-7.7) k/uL Monocytes # (0-1.0) k/uL PT (9.0-12.0) sec INR (<1.2) D-Dimer (<0.60) mg/L FEU Creatinine (0.66-1.25) mg/dL Alkaline Phosphatase (38-126) U/L Troponin I 0.122 H* (0.000-0.034) ng/mL Total Protein (6.3-8.2) g/dL Assessment and Plan Assessment: 1. Shortness of breath. Cardiology and pulmonary services have been consulted. Patient started on IV Lasix 2. Acute CHF exacerbation. 2-D echo has been ordered. Patient started on IV Lasix 3. Elevated troponin. Patient started on heparin drip cardiology service is consulted 4. Recent diverticulitis. Patient completed antibiotic treatment. Symptoms resolved 5. History of diabetes mellitus type 2 6. History of essential hypertension 7. History of chronic back pain 8. History of peripheral neuropathy Cardiology and pulmonary service is consulted CT of the chest to rule out PE ordered Serial troponins ordered COVID-19 test ordered 2-D echo ordered Patient maintained on IV heparin for positive troponin Continue IV Lasix Time with Patient: Greater than 30 (Greater than 60% of the total time spent in counseling and coordination of care)
[2021-03-20] MEDS: FUROSEMIDE 10 MG/ML 4 ML VIAL IV SCH ×2 (13:05→23:35)
[2021-03-20] MEDS: HEPARIN SOD,PORK IN 0.45% NACL 25,000 UNIT in 0.45% NACL 1 250ML.BAG IV SCH (13:14)
--- NOTE | 2021-03-20 13:18 | CT ---
EXAMINATION TYPE: CT angio chest DATE OF EXAM: 03/20/2021 1:04 PM COMPARISON: 09/13/2018 HISTORY: Trouble breathing and elevated d-dimer CT DLP: 424.4 mGycm Automated exposure control for dose reduction was used. CONTRAST: CTA scan of the thorax is performed with IV Contrast, patient injected with 100, wasted 12 ml mL of I sovue 370, pulmonary embolism protocol. FINDINGS: There are moderate emphysematous changes in the lungs. There are moderate to large bilateral pleural effusions with bibasilar atelectasis left greater than right. The heart is clearly enlarged. The great vessels the chest are normal. There are no filling defects w ithin the pulmonary arterial circulation to suggest pulmonary embolism.. IMPRESSION: 1. No evidence of pulmonary embolism. 2. Large bilateral pleural effusions. 3. Bibasilar atelectasis left greater than right. 4. Emphysematous changes. 5. Mild cardiomegaly.
[2021-03-20] MEDS: NITROGLYCERIN OINT 1 INCH/GM PACKET TOPICAL SCH ×3 (14:12→23:36)
[2021-03-20 17:11] LABS: Glucose,Whole Blood 107 mg/dL (75-99)
[2021-03-20] MEDS ORDERED: PSEUDOEPHEDRINE PO PRN (19:08)
[2021-03-20] MEDS ORDERED: LORATADINE PO PRN (19:08)
[2021-03-20 20:17] LABS: Glucose,Whole Blood 154 mg/dL (75-99)
[2021-03-20] MEDS ORDERED: LORATADINE 10 MG TAB PO SCH (21:00)
[2021-03-20] MEDS ORDERED: TEMAZEPAM 30 MG CAP PO SCH (21:00)
[2021-03-20] MEDS: DICLOFENAC SODIUM GEL 100 GM TUBE TOPICAL PRN (21:09)
[2021-03-20] MEDS: FLUTICASONE 50MCG/SPRAY NASAL 16GM EA NOSTRIL SCH (21:10)
[2021-03-20] MEDS: GABAPENTIN 300 MG CAP PO SCH (21:22)
[2021-03-20] MEDS: TAMSULOSIN 0.4 MG CAP.ER.24H PO SCH (21:22)
[2021-03-20] MEDS: PANTOPRAZOLE 40 MG TABLET PO SCH (21:22)
[2021-03-20] MEDS: DICYCLOMINE 20 MG TAB PO SCH (21:22)
[2021-03-20] MEDS: TEMAZEPAM 15 MG CAP PO SCH (21:44)
[2021-03-21] MEDS: DICLOFENAC SODIUM GEL 100 GM TUBE TOPICAL PRN ×3 (04:22→23:17)
[2021-03-21 06:37] LABS: Glucose,Whole Blood 130 mg/dL (75-99)
[2021-03-21 07:56] LABS: INR 1.3 (<1.2); Partial Thromboplastin Time 64.3 sec (22.0-30.0); Prothrombin Time 13.1 sec (9.0-12.0)
[2021-03-21 08:00] LABS: Anisocytosis Moderate; Basophils # (A) 0.1 k/uL (0-0.2); Basophils % (A) 1 %; Eosinophils # (A) 0.2 k/uL (0-0.7); Eosinophils % (A) 2 %; HCT 40.1 % (39.0-53.0); HGB 12.9 gm/dL (13.0-17.5); Hypochromasia Slight; Lymphocytes # (A) 1.9 k/uL (1.0-4.8); Lymphocytes % (A) 19 %; MCH 30.2 pg (25.0-35.0); MCHC 32.2 g/dL (31.0-37.0); MCV 93.9 fL (80.0-100.0); Macrocytosis Slight; Mean Platelet Volume 8.4; Microcytosis Slight; Monocytes # (A) 1.3 k/uL (0-1.0); Monocytes % (A) 13 %; Neutrophils # (A) 6.3 k/uL (1.3-7.7); Neutrophils % (A) 63 %; Platelet Count 367 k/uL (150-450); Poikilocytosis Slight; RBC 4.28 m/uL (4.30-5.90); RDW 22.8 % (11.5-15.5); WBC 10.1 k/uL (3.8-10.6)
[2021-03-21 08:25] LABS: ALT 26 U/L (4-49); AST 32 U/L (17-59); African American GFR (CKD) >90 (>60 ml/min/1.73 sqM); Albumin 3.7 g/dL (3.5-5.0); Alkaline Phosphatase 191 U/L (38-126); Anion Gap 7 mmol/L; Blood Urea Nitrogen 18 mg/dL (9-20); Calcium 9.3 mg/dL (8.4-10.2); Carbon Dioxide 33 mmol/L (22-30); Chloride 102 mmol/L (98-107); Glucose 138 mg/dL (74-99); Non-African American GFR(CKD) >90 (>60 ml/min/1.73 sqM); Potassium 3.8 mmol/L (3.5-5.1); Sodium 142 mmol/L (137-145); Total Bilirubin 0.9 mg/dL (0.2-1.3); Total Protein 5.9 g/dL (6.3-8.2)
[2021-03-21] MEDS ORDERED: lisinopriL 5 MG TAB PO SCH (09:00)
[2021-03-21] MEDS: DICYCLOMINE 20 MG TAB PO SCH ×4 (10:17→23:16)
[2021-03-21] MEDS: METOPROLOL TARTRATE 25 MG TAB PO SCH ×2 (10:17→20:37)
[2021-03-21] MEDS: CITALOPRAM HYDROBROMIDE 20 MG TAB PO SCH (10:17)
[2021-03-21] MEDS: LORATADINE 10 MG TAB PO SCH (10:17)
[2021-03-21] MEDS: PANTOPRAZOLE 40 MG TABLET PO SCH ×2 (10:17→20:37)
[2021-03-21] MEDS: ATORVASTATIN 40 MG TAB PO SCH (10:18)
[2021-03-21] MEDS: FUROSEMIDE 10 MG/ML 4 ML VIAL IV SCH ×2 (10:18→20:37)
[2021-03-21] MEDS: NITROGLYCERIN OINT 1 INCH/GM PACKET TOPICAL SCH ×4 (10:18→23:26)
[2021-03-21] MEDS: ASPIRIN 81 MG PO SCH (10:18)
[2021-03-21] MEDS: HEPARIN SOD,PORK IN 0.45% NACL 25,000 UNIT in 0.45% NACL 1 250ML.BAG IV SCH (10:19)
[2021-03-21] MEDS: FLUTICASONE 50MCG/SPRAY NASAL 16GM EA NOSTRIL SCH ×2 (10:19→20:37)
--- NOTE | 2021-03-21 10:54 | ECHOF ---
Referral Reason:chf MEASUREMENTS -------- HEIGHT: 170.2 cm WEIGHT: 75.3 kg BP: 127/77 IVSd: 1.7 cm (0.6 - 1.1) LVIDd: 4.5 cm (3.9 - 5.3) LVPWd: 2.1 cm (0.6 - 1.1) IVSs: 2.1 cm LVIDs: 3.2 cm LVPWs: 2.3 cm LAESV Index (A-L): 44.05 ml/m Ao Diam: 3.9 cm (2.0 - 3.7) AV Cusp: 2.3 cm (1.5 - 2.6) MV EXCURSION: 17.701 mm (> 18.000) MV EF SLOPE: 72 mm/s (70 - 150) EPSS: 0.5 cm MV E Brent: 0.65 m/s MV DecT: 124 ms MV A Brent: 0.51 m/s MV E/A Ratio: 1.27 RAP: 5.00 mmHg RVSP: 11.63 mmHg FINDINGS -------- Sinus rhythm. This was a technically good study. There is severe concentric left ventricular hypertrophy. Overall left ventricular systolic function is normal with, an EF between 60 - 65 %. The right ventricle is normal in size. LA is severely dilated >40 ml/m2 The right atrial size is normal. There is mild aortic valve sclerosis. There is no evidence of aortic regurgitation. Mild mitral annular calcification present. Mild mitral regurgitation is present. Mild tricuspid regurgitation present. Right ventricular systolic pressure is normal at < 35 mmHg. There is no pulmonic regurgitation present. Echo free space represents a pericardial fat pad. Small Pleural Effusion. CONCLUSIONS -------- 1. Overall left ventricular systolic function is normal with, an EF between 60 - 65 %. 2. The right ventricle is normal in size. 3. LA is severely dilated >40 ml/m2 4. The right atrial size is normal. 5. There is mild aortic valve sclerosis. 6. Mild mitral annular calcification present. 7. Mild mitral regurgitation is present. 8. Mild tricuspid regurgitation present. 9. Echo free space represents a pericardial fat pad. 10. Small Pleural Effusion. BACTERIOLOGIST DAIRY: Tahmina Mclaughlin RDCS
--- NOTE | 2021-03-21 11:01 | P.CRDCN ---
History of Present Illness History of present illness: HISTORY OF PRESENTING ILLNESS This is a pleasant 71-year-old male past medical history significant for diabetes mellitus, hypertension, mitral valve prolapse with mitral regurgitation and chronic back pain. He follows in the office with Dr. Young. We have been asked to see in consultation for heart failure and elevated troponins. He presented to the hospital with a 2 day history of exertional shortness of breath. He states on a regular basis he is quite active physically however over the previous 2 days he has had difficulty with mild normal activities such as gardening or walking up and down the stairs. He denies any significant orthopnea or PND. He has no symptoms of chest discomfort. In the emergency department he underwent a chest x-ray that revealed heart failure and a CAT scan that was negative for PE, emphysematous changes and large bilateral pleural effusions. He has been initiated on IV diuretics. EKG revealed sinus mechanism with T-wave inversions in the lateral and precordial leads. This is a change from previous EKGs. Laboratory data re viewed, WBC 10.1, hemoglobin 12.9, platelets 367, sodium 142, potassium 3.8, creatinine 0.7, magnesium 1.7, troponin 0.122, 0.134, 0.136 and NT proBNP 8210. Current daily cardiac medications include lisinopril 5 mg daily. REVIEW OF SYSTEMS At the time of my exam: CONSTITUTIONAL: Denies fever or chills. CARDIOVASCULAR: Complains of exertional shortness of breath. Denies chest pain, orthopnea, PND or palpitations. RESPIRATORY: Denies cough. GASTROINTESTINAL: Denies abdominal pain, diarrhea, constipation, nausea or vomiting. MUSCULOSKELETAL: Denies myalgias. NEUROLOGIC: Denies numbness, tingling, headacbe or weakness. ENDOCRINE: Denies fatigue, weight change, polydipsia or polyurina. GENITOURINARY: Denies burning, hematuria or urgency with micturation. HEMATOLOGIC: Denies history of anemia or bleeding. PHYSICAL EXAMINATION Blood pressure 139/83 heart rate 73 afebrile and maintaining oxygen saturation on nasal cannula. CONSTITUTIONAL: No apparent distress. HEENT: Head is normocephalic. Pupils are equal, round. Sclerae anicteric. Mucous membranes of the mouth are moist. No JVD. No carotid bruit. CHEST EXAMINATION: Lungs are clear to auscultation. Dullness appreciated bilaterally right greater than left. No chest wall tenderness is noted on palpation or with deep breathing. HEART EXAMINATION: Regular rate and rhythm. S1, S2 heard. Soft systolic ejection murmur at the left sternal border and apex, no gallops or rub. ABDOMEN: Soft, nontender. Positive bowel sounds. EXTREMITIES: 2+ peripheral pulses, no lower extremity edema and no calf tenderness. NEUROLOGIC EXAMINATION: Patient is awake, alert and oriented x3. ASSESSMENT Non-ST elevated myocardial infarction Acute heart failure, likely diastolic related to mitral valve prolapse. Echocardiogram pending. Hypertension History of mitral valve prolapse PLAN Continue IV diuresis. Follow renal function and electrolytes in the morning. Document accurate intake and output along with daily weights. Obtain ultrasound of the chest bilaterally to assess size of pleural effusions for possible drainage. Pulmonary evaluation recommended. Echocardiogram has been ordered and will be reviewed. Continue IV heparin. Patient will likely require cardiac catheterization pending evaluation of pleural effusions. I have discussed the risks, benefits and alternative therapies for the above-mentioned procedure and for both sedation/analgesia as well as necessary blood product administration, if indicated, as they pertain to this patient. The patient has indicated understanding and acceptance of the risks and procedures discussed. Questions have been answered appropriately and he is agreeable to move forward with the above-stated procedure. This will likely take place tomorrow. Nothing by mouth after midnight tonight pending pulmonary evaluation. Further recommendations to follow based upon clinical course. Thank you kindly for this consultation. Nurse Practitioner note has been reviewed, I agree with a documented findings and plan of care. Patient was seen and examined. Past Medical History Past Medical History: Cancer, COPD, Diabetes Mellitus, GERD/Reflux, Hearing Disorder / Deafness, Hypertension, Osteoarthritis (OA), Prostate Disorder, Sleep Apnea/CPAP/BIPAP Additional Past Medical History / Comment(s): Optic migraines, diverticulosis, kidney stones, neuropathy hands & feet, low BACK PAIN. 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 CPAP use, bilateral hearing aid use, wears brace on bilateral legs. History of Any Multi-Drug Resistant Organisms: None Reported Date of last positivie culture/infection: none MDRO Source:: none Past Surgical History: Back Surgery, Breast Surgery, Hernia Repair, Joint Replacement Additional Past Surgical History / Comment(s): EGD . Laparoscopic Mireya Fundoplasty, CYSTOSCOPY AND LITHOTRIPSY LEfT URETERAL STENT-SINCE REMOVED. RIGHT BREAST BIOPSY, TOTAL LEFT KNEE REPLACEMENT, LEFT FOOT SURGERY, BILATERAL INGUINAL HERNIA REPAIR, PERCUTANEOUS NEPHROLITHOTOMY, BILATERAL hand surgery, back procedure for nerve endings and cortisone injections, ESOPHGEAL DILATION, eye surgery to remove tumors, LUMPECTOMY RIGHT BREAST. Past Anesthesia/Blood Transfusion Reactions: No Reported Reaction Additional Past Anesthesia/Blood Transfusion Reaction / Comment(s): NEVER HAD ANY BLOOD TRANSFUSIONS. Smoking Status: Former smoker - Past Family History Father Family Medical History: Cancer Mother Family Medical History: No Reported History Additional Family Medical History / Comment(s): . Medications and Allergies Home Medications Medication Instructions Recorded Confirmed Type Temazepam [Restoril] 30 mg PO HS 03/05/15 03/20/21 History Citalopram Hydrobromide [CeleXA] 40 mg PO DAILY 02/05/16 03/20/21 History Levocetirizine Dihydrochloride 5 mg PO HS 07/13/16 03/20/21 History [Xyzal] Tamsulosin [Flomax] 0.4 mg PO HS 07/13/16 03/20/21 History metFORMIN HCL [Glucophage Xr] 500 mg PO BID 11/27/16 03/20/21 History Fluticasone Nasal [place] [Flonase 2 spr EA NOSTRIL BID 03/26/18 03/20/21 History Nasal [place]] lisinopriL [Prinivil] 5 mg PO DAILY 08/01/19 03/20/21 History Loratadine-Pseudoeph 10-240 mg 1 tab PO DAILY PRN 08/14/19 03/20/21 History [Claritin-D 24 Hour] Dicyclomine [Bentyl] 20 mg PO QID 07/21/20 03/20/21 History Diclofenac Sodium Gel [Voltaren 4 gm TOPICAL TID PRN 01/06/21 03/20/21 History Gel] Gabapentin 600 mg PO HS 03/20/21 03/20/21 History Omeprazole 40 mg PO BID 03/20/21 03/20/21 History Allergies Allergy/AdvReac Type Severity Reaction Status Date / Time cephalexin monohydrate Allergy Rash/Hives Verified 03/20/21 12:25 [From Keflex] clarithromycin [From Biaxin] Allergy Unknown Verified 03/20/21 12:25 gentamicin [Gentamicin] Allergy Unknown Verified 03/20/21 12:25 naproxen Allergy Unknown Verified 03/20/21 12:25 Penicillins Allergy Anaphylaxis Verified 03/20/21 12:25 Sulfa (Sulfonamide Allergy Rash/Hives Verified 03/20/21 12:25 Antibiotics) promethazine AdvReac Nausea & Verified 03/20/21 12:25 Vomiting Physical Exam Vitals: Vital Signs Temp Pulse Pulse Resp BP BP Pulse Ox 03/21/21 04:00 97.9 F 70 17 127/77 95 03/21/21 02:00 77 20 03/21/21 00:00 98.4 F 77 20 128/77 93 L 03/20/21 20:00 98.1 F 77 20 145/75 94 L 03/20/21 16:00 98.4 F 63 18 144/76 97 03/20/21 14:12 87 18 152/97 97 03/20/21 11:40 87 03/20/21 11:29 82 03/20/21 09:57 98.4 F 74 18 158/100 94 L Intake and Output 03/20/21 03/21/21 03/21/21 22:59 06:59 14:59 Intake Total 293.834 68.663 Output Total 660 900 Balance -366.166 -831.337 Intake: Intake, IV Titration 53.834 68.663 Amount Heparin Sod,Pork in 0.45% 53.834 68.663 NaCl 25,000 unit In 0.45 % NaCl 1 250ml.bag @ 12 UNITS/KG/HR 9.417 mls/hr IV .Q24H [facility] Rx#: [id number] Oral 240 Output: Urine 660 900 Other: Voiding Method Urinal Weight 78.471 kg 75.4 kg Results 03/21/21 07:23 03/21/21 07:23 Cardiac Enzymes 03/20/21 03/20/21 03/20/21 Range/Units 10:41 10:41 14:15 AST 36 (17-59) U/L Troponin I 0.122 H* 0.134 H* (0.000-0.034) ng/mL 03/20/21 Range/Units 18:02 AST (17-59) U/L Troponin I 0.136 H* (0.000-0.034) ng/mL Coagulation 03/20/21 03/20/21 03/21/21 Range/Units 10:41 18:02 00:04 PT 12.4 H (9.0-12.0) sec APTT 22.0 42.8 H 40.2 H (22.0-30.0) sec 03/21/21 Range/Units 07:23 PT 13.1 H (9.0-12.0) sec APTT 64.3 H (22.0-30.0) sec CBC 03/20/21 Range/Units 10:41 WBC 13.7 H (3.8-10.6) k/uL RBC 4.24 L (4.30-5.90) m/uL Hgb 12.6 L (13.0-17.5) gm/dL Hct 40.4 (39.0-53.0) % Plt Count 390 (150-450) k/uL Comprehensive Metabolic Panel 03/20/21 Range/Units 10:41 Sodium 141 (137-145) mmol/L Potassium 3.7 (3.5-5.1) mmol/L Chloride 106 (98-107) mmol/L Carbon Dioxide 27 (22-30) mmol/L BUN 15 (9-20) mg/dL Creatinine 0.65 L (0.66-1.25) mg/dL Glucose 95 (74-99) mg/dL Calcium 9.3 (8.4-10.2) mg/dL AST 36 (17-59) U/L ALT 30 (4-49) U/L Alkaline Phosphatase 256 H (38-126) U/L Total Protein 6.1 L (6.3-8.2) g/dL Albumin 4.0 (3.5-5.0) g/dL Current Medications Generic Name Dose Route Start Last Admin Trade Name Freq PRN Reason Stop Dose Admin Citalopram Hydrobromide 40 mg 03/21/21 09:00 Citalopram Hydrobromide 20 Mg Tab PO DAILY NILS Diclofenac Sodium 4 gm 03/20/21 19:08 03/21/21 04:22 Diclofenac Sodium Gel 100 Gm Tube TOPICAL 4 gm TID PRN Administration Pain Dicyclomine HCl 20 mg 03/20/21 22:00 03/20/21 21:22 Dicyclomine 20 Mg Tab PO 20 mg QID NILS Administration Fluticasone Propionate 2 spray 03/20/21 21:00 03/20/21 21:10 Fluticasone 50mcg/Meally Nasal 16gm EA NOSTRIL 2 spray BID NILS Administration Furosemide 40 mg 03/21/21 09:00 Furosemide 10 Mg/Ml 4 Ml Vial IV Q12HR NILS Gabapentin 600 mg 03/20/21 21:00 03/20/21 21:22 Gabapentin 300 Mg Cap PO 600 mg HS NILS Administration Heparin Sodium (Porcine) 0 unit 03/20/21 12:02 03/20/21 19:10 Heparin Sodium 1,000 Un/Ml (10ml Vl) IV 1,950 unit PER PROTOCOL PRN Administration Low PTT Protocol Heparin Sodium/Sodium Chloride 250 mls @ 9.417 mls/hr 03/20/21 12:15 03/21/21 01:12 25,000 unit/ Sodium Chloride IV 16 units/kg/hr .Q24H NILS 12.555 mls/hr Titration Protocol 12 UNITS/KG/HR Lisinopril 5 mg 03/21/21 09:00 Lisinopril 5 Mg Tab PO DAILY NILS Loratadine 10 mg 03/21/21 09:00 Loratadine 10 Mg Tab PO DAILY NILS Nitroglycerin 1 inch 03/20/21 13:00 03/20/21 23:36 Nitroglycerin Oint 1 Inch/Gm Packet TOPICAL Not Given QID NILS Pantoprazole Sodium 40 mg 03/20/21 21:00 03/20/21 21:22 Pantoprazole 40 Mg Tablet PO 40 mg BID NILS Administration Tamsulosin HCl 0.4 mg 03/20/21 21:00 03/20/21 21:22 Tamsulosin 0.4 Mg Cap.Er.24h PO 0.4 mg HS NILS Administration Temazepam 30 mg 03/20/21 22:00 03/20/21 21:44 Temazepam 15 Mg Cap PO 30 mg HS NILS Administration Intake and Output 03/20/21 03/21/21 03/21/21 22:59 06:59 14:59 Intake Total 293.834 68.663 Output Total 660 900 Balance -366.166 831.337 Intake: Intake, IV Titration 53.834 68.663 Amount Heparin Sod,Pork in 0.45% 53.834 68.663 NaCl 25,000 unit In 0.45 % NaCl 1 250ml.bag @ 12 UNITS/KG/HR 9.417 mls/hr IV .Q24H [facility] Rx#: [id number] Oral 240 Output: Urine 660 900 Other: Voiding Method Urinal Weight 78.471 kg 75.4 kg 03/20/21 10:41 03/20/21 10:41
[2021-03-21 11:41] LABS: Chol/HDL Ratio 2.67; LDL Cholesterol,Calculated 62.8 mg/dL (0.0-131.0); VLDL Calculation 17.2 mg/dL (5.00-40.00)
[2021-03-21] MEDS: ACETAMINOPHEN TAB 325 MG TAB PO PRN ×2 (12:17→18:21)
--- NOTE | 2021-03-21 12:20 | US ---
EXAMINATION TYPE: US chest DATE OF EXAM: 03/21/2021 COMPARISON: NONE CLINICAL HISTORY: pleural effusions. TECHNIQUE: Targeted ultrasound of the posterior lower EXAM MEASUREMENTS: Right Pleural Effusion pocket size: 2.2 cm Right skin surface to fluid distance: 2.3 cm Left Pleural Effusion pocket size: 6.4 cm Left skin surface to fluid distance: 2.3 cm Lung within fluid at 4.0cm Right side not marked for possible thoracentesis outside the dept. Left side marked for possible thoracentesis outside the dept. Pulmonologists are able to review the images in the patient?s EMR. IMPRESSIONS: 1. Small bilateral pleural effusions greater on the left
[2021-03-21 12:29] LABS: Glucose,Whole Blood 230 mg/dL (75-99)
--- NOTE | 2021-03-21 13:16 | P.CNPUL ---
History of Present Illness Consult date: 03/21/21 Requesting physician: Haley Villa Reason for consult: dyspnea, hypoxemia, pleural effusion, abnormal CXR/CT Chief complaint: Shortness of breath. History of present illness: Pulmonary consult dated 03/21/2021. 71-year-old male who presents to the emergency department on March 20 complaining of increasing shortness of breath particularly with exertion. The patient apparently also had some mild chest discomfort as well. The patient was discovered on x-rays and CAT scans have bilateral pleural effusions, and changes on the chest x-ray which were consistent with fluid overload. The patient apparently was told that he didn't fact have a heart attack. He notices shortness of breath for about 2 or 3 days before coming to the hospital. He got progressively worse going up and down the stairs. For that reason he came in to be evaluated. I told him that I would do an ultrasound of the chest bilaterally, to determine whether or not he had enough fluid in the pleural spaces to warrant thoracentesis. He is ready negative about 5 L since being in the hospital. 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 White count 10.1, hemoglobin 12.9, hematocrit 40.1, platelet count 367,000. PT 13.1 INR 1.3 PTT is 64.3. Sodium potassium chloride normal. CO2 33. Anion gap 7, BUN 18, and creatinine 0.70. Chest x-rays consistent with CHF. CT angiogram was negative for pulmonary embolism, but did show bilateral pleural effusions. Chest ultrasound showed a 2.2 cm pocket of fluid on the right side, and a 6.4 cm pocket of fluid on the left side. Review of Systems REVIEW OF SYSTEMS: CONSTITUTIONAL: [Negative.] NEUROLOGIC: [ Negative.] HEENT: [ Negative.] CARDIAC: Chest heaviness on exertion. PULMONARY: Shortness of breath on exertion. GI: [Negative.] : [Negative.] RHEUMATOLOGIC: [ Negative.] IMMUNOLOGIC: [ Negative.] ENDOCRINE: [Negative. ] DERMATOLOGIC: [Negative.] Past Medical History Past Medical History: Cancer, COPD, Diabetes Mellitus, GERD/Reflux, Hearing Disorder / Deafness, Hypertension, Osteoarthritis (OA), Prostate Disorder, Sleep Apnea/CPAP/BIPAP Additional Past Medical History / Comment(s): Optic migraines, diverticulosis, kidney stones, neuropathy hands & feet, low BACK PAIN. 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 CPAP use, bilateral hearing aid use, wears brace on bilateral legs. History of Any Multi-Drug Resistant Organisms: None Reported Date of last positivie culture/infection: none MDRO Source:: none Past Surgical History: Back Surgery, Breast Surgery, Hernia Repair, Joint Replacement Additional Past Surgical History / Comment(s): EGD . Laparoscopic Mireya Fundoplasty, CYSTOSCOPY AND LITHOTRIPSY LEfT URETERAL STENT-SINCE REMOVED. RIGHT BREAST BIOPSY, TOTAL LEFT KNEE REPLACEMENT, LEFT FOOT SURGERY, BILATERAL INGUINAL HERNIA REPAIR, PERCUTANEOUS NEPHROLITHOTOMY, BILATERAL hand surgery, back procedure for nerve endings and cortisone injections, ESOPHGEAL DILATION, eye surgery to remove tumors, LUMPECTOMY RIGHT BREAST. Past Anesthesia/Blood Transfusion Reactions: No Reported Reaction Additional Past Anesthesia/Blood Transfusion Reaction / Comment(s): NEVER HAD ANY BLOOD TRANSFUSIONS. Smoking Status: Former smoker - Past Family History Father Family Medical History: Cancer Mother Family Medical History: No Reported History Additional Family Medical History / Comment(s): . Medications and Allergies Home Medications Medication Instructions Recorded Confirmed Type Temazepam [Restoril] 30 mg PO HS 03/05/15 03/20/21 History Citalopram Hydrobromide [CeleXA] 40 mg PO DAILY 02/05/16 03/20/21 History Levocetirizine Dihydrochloride 5 mg PO HS 07/13/16 03/20/21 History [Xyzal] Tamsulosin [Flomax] 0.4 mg PO HS 07/13/16 03/20/21 History metFORMIN HCL [Glucophage Xr] 500 mg PO BID 11/27/16 03/20/21 History Fluticasone Nasal [place] [Flonase 2 spr EA NOSTRIL BID 03/26/18 03/20/21 History Nasal [place]] lisinopriL [Prinivil] 5 mg PO DAILY 08/01/19 03/20/21 History Loratadine-Pseudoeph 10-240 mg 1 tab PO DAILY PRN 08/14/19 03/20/21 History [Claritin-D 24 Hour] Dicyclomine [Bentyl] 20 mg PO QID 07/21/20 03/20/21 History Diclofenac Sodium Gel [Voltaren 4 gm TOPICAL TID PRN 01/06/21 03/20/21 History Gel] Gabapentin 600 mg PO HS 03/20/21 03/20/21 History Omeprazole 40 mg PO BID 03/20/21 03/20/21 History Allergies Allergy/AdvReac Type Severity Reaction Status Date / Time cephalexin monohydrate Allergy Rash/Hives Verified 03/20/21 12:25 [From Keflex] clarithromycin [From Biaxin] Allergy Unknown Verified 03/20/21 12:25 gentamicin [Gentamicin] Allergy Unknown Verified 03/20/21 12:25 naproxen Allergy Unknown Verified 03/20/21 12:25 Penicillins Allergy Anaphylaxis Verified 03/20/21 12:25 Sulfa (Sulfonamide Allergy Rash/Hives Verified 03/20/21 12:25 Antibiotics) promethazine AdvReac Nausea & Verified 03/20/21 12:25 Vomiting Physical Exam Osteopathic Statement: *. No significant issues noted on an osteopathic structural exam other than those noted in the History and Physical/Consult. Vitals: Vital Signs Temp Pulse Pulse Resp BP BP Pulse Ox 03/21/21 12:15 60 16 97/58 96 03/21/21 08:58 98.4 F 73 18 139/83 96 03/21/21 04:00 97.9 F 70 17 127/77 95 03/21/21 02:00 77 20 03/21/21 00:00 98.4 F 77 20 128/77 93 L 03/20/21 20:00 98.1 F 77 20 145/75 94 L 03/20/21 16:00 98.4 F 63 18 144/76 97 03/20/21 14:12 87 18 152/97 97 Intake and Output 03/20/21 03/21/21 03/21/21 22:59 06:59 14:59 Intake Total 293.834 68.663 114.46 Output Total 660 900 Balance -366.166 -831.337 114.46 Intake: Intake, IV Titration 53.834 68.663 114.46 Amount Heparin Sod,Pork in 0.45% 53.834 68.663 114.46 NaCl 25,000 unit In 0.45 % NaCl 1 250ml.bag @ 12 UNITS/KG/HR 9.417 mls/hr IV .Q24H [facility] Rx#: [id number] Oral 240 Output: Urine 660 900 Other: Voiding Method Urinal # Voids 1 # Bowel Movements 1 Weight 78.471 kg 75.4 kg No acute distress, oriented 3. No acute respiratory difficulty such as use of accessory muscles or conversational dyspnea. Saturations 96% on 2 L. HEENT examination is grossly unremarkable. Neck supple. Full range of motion. No adenopathy thyromegaly or neck vein distention. Cardiovascular examination reveals regular rhythm rate. S1-S2 normal. No S3 or S4. No discernible murmur noted. Temp heart sounds are distant. Heart rate 60 bpm. Lungs reveal crackles at both lung bases. There is dullness at both lung bases. Most of the patient's lung rodriguez though, are rather clear. Abdomen soft bowel sounds are heard. No masses or tenderness. Extremities are intact. No cyanosis clubbing or edema. Skin is without rash or lesion. Neurologic examination is brief but nonfocal. Results - Laboratory Findings CBC and BMP: 03/21/21 07:23 03/21/21 07:23 PT/INR, D-dimer PT 13.1 sec (9.0-12.0) H 03/21/21 07:23 INR 1.3 (<1.2) H 03/21/21 07:23 D-Dimer 0.91 mg/L FEU (<0.60) H 03/20/21 10:41 Abnormal lab findings: Abnormal Labs 03/20/21 03/20/21 03/20/21 10:41 10:41 10:41 WBC 13.7 H RBC 4.24 L Hgb 12.6 L RDW 23.2 H Neutrophils # 9.4 H Monocytes # 1.4 H PT 12.4 H INR 1.2 H APTT D-Dimer 0.91 H Carbon Dioxide Creatinine 0.65 L Glucose POC Glucose (mg/dL) Alkaline Phosphatase 256 H Troponin I Total Protein 6.1 L 03/20/21 03/20/21 03/20/21 10:41 14:15 17:07 WBC RBC Hgb RDW Neutrophils # Monocytes # PT INR APTT D-Dimer Carbon Dioxide Creatinine Glucose POC Glucose (mg/dL) 107 H Alkaline Phosphatase Troponin I 0.122 H* 0.134 H* Total Protein 03/20/21 03/20/21 03/20/21 18:02 18:02 20:16 WBC RBC Hgb RDW Neutrophils # Monocytes # PT INR APTT 42.8 H D-Dimer Carbon Dioxide Creatinine Glucose POC Glucose (mg/dL) 154 H Alkaline Phosphatase Troponin I 0.136 H* Total Protein 03/21/21 03/21/21 03/21/21 00:04 05:58 07:23 WBC RBC 4.28 L Hgb 12.9 L RDW 22.8 H Neutrophils # Monocytes # 1.3 H PT INR APTT 40.2 H D-Dimer Carbon Dioxide Creatinine Glucose POC Glucose (mg/dL) 130 H Alkaline Phosphatase Troponin I Total Protein 03/21/21 03/21/21 03/21/21 07:23 07:23 12:26 WBC RBC Hgb RDW Neutrophils # Monocytes # PT 13.1 H INR 1.3 H APTT 64.3 H D-Dimer Carbon Dioxide 33 H Creatinine Glucose 138 H POC Glucose (mg/dL) 230 H Alkaline Phosphatase 191 H Troponin I Total Protein 5.9 L - Diagnostic Findings Chest x-ray: image reviewed CT scan - chest: image reviewed Assessment and Plan Assessment: Small to moderate bilateral pleural effusions, secondary to CHF. Left-sided effusion larger than the right. History of COPD from previous tobacco use. History of diabetes mellitus, with diabetic neuropathy. History of gastroesophageal reflux disease. Deafness. History of hypertension. Osteoarthritis. History of sleep apnea syndrome, currently maintained on CPAP. History of migraine cephalgia. History of diverticular disease. History of kidney stones. History of right breast cancer. Plan: Plan dated 03/21/2021. The patient likely does not need thoracentesis. The right-sided pleural effusion is tiny. The left-sided pleural effusions a bit larger. The patient apparently has been diuresing well. He is negative more than 5 L. We'll continue to follow. Repeat chest x-ray in a couple days. No additional recommendations are made. We will continue to follow the patient. Time with Patient: Greater than 30
[2021-03-21 16:55] LABS: Glucose,Whole Blood 158 mg/dL (75-99)
[2021-03-21 20:24] LABS: Glucose,Whole Blood 212 mg/dL (75-99)
[2021-03-21] MEDS: TAMSULOSIN 0.4 MG CAP.ER.24H PO SCH (20:37)
[2021-03-21] MEDS: GABAPENTIN 300 MG CAP PO SCH (20:37)
[2021-03-21] MEDS: INSULIN ASPART (NovoLOG) 100 UNIT/ML VIAL SQ SCH (20:37)
[2021-03-21] MEDS: TEMAZEPAM 15 MG CAP PO SCH (23:16)
[2021-03-22 06:10] LABS: Glucose,Whole Blood 149 mg/dL (75-99)
[2021-03-22] MEDS: INSULIN ASPART (NovoLOG) 100 UNIT/ML VIAL SQ SCH ×4 (06:28→21:06)
[2021-03-22] MEDS: HEPARIN SOD,PORK IN 0.45% NACL 25,000 UNIT in 0.45% NACL 1 250ML.BAG IV SCH (08:33)
[2021-03-22] MEDS: NITROGLYCERIN OINT 1 INCH/GM PACKET TOPICAL SCH ×4 (08:34→21:06)
[2021-03-22] MEDS: ATORVASTATIN 40 MG TAB PO SCH (08:34)
[2021-03-22] MEDS: PANTOPRAZOLE 40 MG TABLET PO SCH ×2 (08:35→21:06)
[2021-03-22] MEDS: ASPIRIN 81 MG PO SCH (08:35)
[2021-03-22] MEDS: DICYCLOMINE 20 MG TAB PO SCH ×4 (08:35→21:06)
[2021-03-22] MEDS: CITALOPRAM HYDROBROMIDE 20 MG TAB PO SCH (08:35)
[2021-03-22] MEDS: METOPROLOL TARTRATE 25 MG TAB PO SCH ×2 (08:35→21:06)
[2021-03-22] MEDS: FUROSEMIDE 10 MG/ML 4 ML VIAL IV SCH (08:35)
[2021-03-22] MEDS: lisinopriL 5 MG TAB PO SCH (08:35)
[2021-03-22] MEDS: LORATADINE 10 MG TAB PO SCH (08:38)
[2021-03-22] MEDS: FLUTICASONE 50MCG/SPRAY NASAL 16GM EA NOSTRIL SCH ×2 (08:39→21:08)
[2021-03-22 09:12] LABS: African American GFR (CKD) >90 (>60 ml/min/1.73 sqM); Anion Gap 5 mmol/L; Blood Urea Nitrogen 27 mg/dL (9-20); Calcium 9.2 mg/dL (8.4-10.2); Carbon Dioxide 34 mmol/L (22-30); Chloride 102 mmol/L (98-107); Glucose 136 mg/dL (74-99); Non-African American GFR(CKD) >90 (>60 ml/min/1.73 sqM); Potassium 3.7 mmol/L (3.5-5.1); Sodium 141 mmol/L (137-145)
--- NOTE | 2021-03-22 09:49 | P.PN ---
Subjective Progress Note Date: 03/22/21 Principal diagnosis: Shortness of breath, CHF. Pulmonary consult dated 03/21/2021. 71-year-old male who presents to the emergency department on March 20 complaining of increasing shortness of breath particularly with exertion. The patient apparently also had some mild chest discomfort as well. The patient was discovered on x-rays and CAT scans have bilateral pleural effusions, and changes on the chest x-ray which were consistent with fluid overload. The patient apparently was told that he didn't fact have a heart attack. He notices shortness of breath for about 2 or 3 days before coming to the hospital. He got progressively worse going up and down the stairs. For that reason he came in to be evaluated. I told him that I would do an ultrasound of the chest bilate rally, to determine whether or not he had enough fluid in the pleural spaces to warrant thoracentesis. He is ready negative about 5 L since being in the hospital. 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 White count 10.1, hemoglobin 12.9, hematocrit 40.1, platelet count 367,000. PT 13.1 INR 1.3 PTT is 64.3. Sodium potassium chloride normal. CO2 33. Anion gap 7, BUN 18, and creatinine 0.70. Chest x-rays consistent with CHF. CT angiogram was negative for pulmonary embo lism, but did show bilateral pleural effusions. Chest ultrasound showed a 2.2 cm pocket of fluid on the right side, and a 6.4 cm pocket of fluid on the left side. Progress note dated 03/22/2021. 71-year-old male admitted with a diagnosis of shortness of breath and congestive heart failure. We are asked to see him because of high lateral pleural effusions. He is at 2.2 cm pocket of fluid on the right side, and a slightly larger pocket, measuring 6.4 cm on the left side. The patient clinically is stable. He's only on 2 L nasal cannula. In my opinion, he does not need thoracentesis. Lab data from today includes a PTT of 70.5, sodium 141, potassium 3.7, chlorides 102, CO2 34, anion gap 5, BUN 27, and creatinine 0.69. Objective - Vital Signs Vital signs: Vital Signs Temp 97.9 F 03/22/21 08:32 Pulse 62 03/22/21 08:32 Resp 16 03/22/21 08:32 BP 113/58 03/22/21 08:32 Pulse Ox 97 03/22/21 08:32 Intake & Output 03/21/21 03/22/21 03/22/21 18:59 06:59 18:59 Intake Total 114.46 250 Output Total 900 Balance 114.46 -900 250 Weight 75.4 kg 75 kg Intake: Intake, IV Titration 114.46 250 Amount Heparin Sod,Pork in 0.45% 114.46 250 NaCl 25,000 unit In 0.45 % NaCl 1 250ml.bag @ 12 UNITS/KG/HR 9.417 mls/hr IV .Q24H [facility] Rx#: [id number] Oral 0 Output: Urine 900 Other: Voiding Method Urinal Urinal Toilet Urinal # Voids 1 # Bowel Movements 0 - Exam No acute distress, oriented 3. No acute respiratory difficulty such as use of accessory muscles or conversational dyspnea. Saturations 96% on 2 L. HEENT examination is grossly unremarkable. Neck supple. Full range of motion. No adenopathy thyromegaly or neck vein distention. Cardiovascular examination reveals regular rhythm rate. S1-S2 normal. No S3 or S4. No discernible murmur noted. Heart sounds are distant. Heart rate 62 bpm. Lungs reveal crackles at both lung bases. There is dullness at both lung bases. Most of the patient's lung rodriguez though, are rather clear. Abdomen soft bowel sounds are heard. No masses or tenderness. Extremities are intact. No cyanosis clubbing or edema. Skin is without rash or lesion. - Labs CBC & Chem 7: 03/21/21 07:23 03/22/21 07:32 Labs: Abnormal Lab Results - Last 24 Hours (Table) 03/21/21 03/21/21 03/21/21 Range/Units 12:26 16:52 20:22 APTT (22.0-30.0) sec Carbon Dioxide (22-30) mmol/L BUN (9-20) mg/dL Glucose (74-99) mg/dL POC Glucose (mg/dL) 230 H 158 H 212 H (75-99) mg/dL 03/22/21 03/22/21 03/22/21 Range/Units 06:09 07:32 07:32 APTT 70.5 H (22.0-30.0) sec Carbon Dioxide 34 H (22-30) mmol/L BUN 27 H (9-20) mg/dL Glucose 136 H (74-99) mg/dL POC Glucose (mg/dL) 149 H (75-99) mg/dL Assessment and Plan Assessment: Small to moderate bilateral pleural effusions, secondary to CHF. Left-sided effusion larger than the right. History of COPD from previous tobacco use. History of diabetes mellitus, with diabetic neuropathy. History of gastroesophageal reflux disease. Deafness. History of hypertension. Osteoarthritis. History of sleep apnea syndrome, currently maintained on CPAP. History of migraine cephalgia. History of diverticular disease. History of kidney stones. History of right breast cancer. Plan: Plan dated 03/21/2021. The patient likely does not need thoracentesis. The right-sided pleural effusion is tiny. The left-sided pleural effusions a bit larger. The patient apparently has been diuresing well. He is negative more than 5 L. We'll continue to follow. Repeat chest x-ray in a couple days. No additional recommendations are made. We will continue to follow the patient. Plan dated 03/22/2021. The patient's doing well clinically. He is on 2 L. In my opinion, he does not need thoracentesis. The patient will continue with his current treatments. Apparently the patient's planning to have a heart catheterization. We will continue to follow make recommendations where appropriate. At this time, no procedure is anticipated from our standpoint. Time with Patient: Less than 30
[2021-03-22] MEDS: FUROSEMIDE 40 MG TAB PO SCH (11:53)
[2021-03-22 12:17] LABS: Glucose,Whole Blood 231 mg/dL (75-99)
[2021-03-22] MEDS ORDERED: SODIUM CHLORIDE 0.9% 1,000 ML in EMPTY BAG 1 BAG IV ONE ×2 (12:56→23:59)
[2021-03-22] MEDS ORDERED: NITROGLYCERIN SL TABS 0.4 MG TAB SUBLINGUAL PRN (12:56)
[2021-03-22] MEDS ORDERED: ALPRAZolam 0.5 MG TAB PO PRN (12:56)
[2021-03-22] MEDS ORDERED: ALPRAZolam 0.25 MG TAB PO PRN (12:56)
--- NOTE | 2021-03-22 12:56 | P.PN ---
Subjective HISTORY OF PRESENTING ILLNESS This is a pleasant 71-year-old male past medical history significant for diabetes mellitus, hypertension, mitral valve prolapse with mitral regurgitation and chronic back pain. He follows in the office with Dr. Young. We have been asked to see in consultation for heart failure and elevated troponins. He presented to the hospital with a 2 day history of exertional shortness of breath. He states on a regular basis he is quite active physically however over the previous 2 days he has had difficulty with mild normal activities such as gardening or walking up and down the stairs. He denies any significant orthopnea or PND. He has no symptoms of chest discomfort. In the emergency department he underwent a chest x-ray that revealed heart failure and a CAT scan that was negative for PE, emphysematous changes and large bilateral pleural effusions. He has been initiated on IV diuretics. EKG revealed sinus mechanism with T-wave inversions in the lateral and precordial leads. This is a change from previous EKGs. Laboratory data reviewed, WBC 10.1, hemoglobin 12.9, platelets 367, sodium 142, potassium 3.8, creatinine 0.7, magnesium 1.7, troponin 0.122, 0.134, 0.136 and NT proBNP 8210. Current daily cardiac medications include lisinopril 5 mg daily. 03/22/2021 Pt seen and examined sitting up in bed in no acute distress. His breathing has improved. He has some mild exertional dyspnea still, no chest pain, dizziness or palpitations. Blood pressure 99/54 heart rate 67 afebrile maintaining oxygen saturation on nasal cannula. Laboratory data reviewed, sodium 141, potassium 3.7, creatinine 0.69. Since admission he has put out over 6 L of fluid. PHYSICAL EXAMINATION CONSTITUTIONAL: No apparent distress. HEENT: Head is normocephalic. Pupils are equal, round. Sclerae anicteric. Mucous membranes of the mouth are moist. No JVD. No carotid bruit. CHEST EXAMINATION: Lungs are clear to auscultation. Diminished bilaterally. No chest wall tenderness is noted on palpation or with deep breathing. HEART EXAMINATION: Regular rate and rhythm. S1, S2 heard. Soft systolic ejecti on murmur at the left sternal border and apex, no gallops or rub. EXTREMITIES: 2+ peripheral pulses, no lower extremity edema and no calf tenderness. ASSESSMENT Non-ST elevated myocardial infarction Acute heart failure, likely diastolic related to mitral valve prolapse. Echocardiogram pending. Hypertension History of mitral valve prolapse PLAN Transition to oral diuretics. Repeat chest x-ray. Plan for cardiac catheterization with Dr. Dr. Young on . I have discussed the risks, benefits and alternative therapies for the above- mentioned procedure and for both sedation/analgesia as well as necessary blood product administration, if indicated, as they pertain to this patient. The patient has indicated understanding and acceptance of the risks and procedures discussed. Questions have been answered appropriately and he is agreeable to move forward with the above-stated procedure. Nurse Practitioner note has been reviewed, I agree with a documented findings and plan of care. Patient was seen and examined. Objective - Vital Signs Vital signs: Vital Signs Temp 97.9 F 03/22/21 08:32 Pulse 62 03/22/21 08:32 Resp 16 03/22/21 08:32 BP 113/58 03/22/21 08:32 Pulse Ox 97 03/22/21 08:32 Intake & Output 03/21/21 03/22/21 03/22/21 18:59 06:59 18:59 Intake Total 114.46 250 Output Total 900 Balance 114.46 -900 250 Weight 75.4 kg 75 kg Intake: Intake, IV Titration 114.46 250 Amount Heparin Sod,Pork in 0.45% 114.46 250 NaCl 25,000 unit In 0.45 % NaCl 1 250ml.bag @ 12 UNITS/KG/HR 9.417 mls/hr IV .Q24H [facility] Rx#: [id number] Oral 0 Output: Urine 900 Other: Voiding Method Urinal Urinal # Voids 1 # Bowel Movements 0 - Labs CBC & Chem 7: 03/21/21 07:23 03/22/21 07:32 Labs: Abnormal Lab Results - Last 24 Hours (Table) 03/21/21 03/21/21 03/21/21 Range/Units 12:26 16:52 20:22 APTT (22.0-30.0) sec POC Glucose (mg/dL) 230 H 158 H 212 H (75-99) mg/dL 03/22/21 03/22/21 Range/Units 06:09 07:32 APTT 70.5 H (22.0-30.0) sec POC Glucose (mg/dL) 149 H (75-99) mg/dL
[2021-03-22 12:58] VITALS: BMI 25.9
--- NOTE | 2021-03-22 14:55 | XR ---
EXAMINATION TYPE: XR chest 2V DATE OF EXAM: 03/22/2021 COMPARISON: 03/20/2021 TECHNIQUE: PA and lateral views submitted. HISTORY: Shortness of breath FINDINGS: Poor inflation suggests COPD and there is bilateral lower lobe infiltrate and small effusion. Coarsen ed interstitium. Diffuse osteopenia with degenerative changes of the spine. IMPRESSION: 1. COPD with bilateral lower lobe infiltrate. 2. Correlate for improving interstitial pneumonitis or congestion.
--- NOTE | 2021-03-22 15:29 | P.PN ---
Subjective Progress Note Date: 03/21/21 This is a 71-year-old male patient who presented to the ER with complaints of shortness of breath. Patient was recently hospitalized at [facility] for diverticulitis which she was treated with IV antibiotics. Patient reports that he has completed a course of antibiotics and has had significant improvement in regards to abdominal issues. Patient reports that the shortness of breath has been progressively getting worse for the past few days. Patient reports he has a increased shortness of breath with activity. Patient denies any recent fever or cough. Patient also reports that he has occasional increased lower extremity edema. Patient does have past medical history of GERD, COPD, diabetes mellitus, deafness, hypertension, prostate disorder, diverticulitis, chronic pain and sleep apnea. BNP elevated at 8210. Initial troponin 0.122. At this time cardiology services will be consulted. Patient was started on heparin drip. Patient started on IV Lasix. Patient denies any chest pain. Patient denies nausea vomiting or diarrhea. Patient denies any urinary burning or frequency. On 03/21/2021 Patient was seen and examined on the medical floor, he is alert and oriented x 3 in no distress, he denies any complaints there is no fever or chills no headache or dizziness no chest pain no shortness of breath no palpitation no cough no nausea or vomiting no abdominal pain no diarrhea no blood in the stools no burning with urination no frequency or urgency and no hematuria, there is no weakness or numbness in any of the extremities no change in vision speech or gait. Plan per cardiology is to proceed with cardiac catheterization in a.m. tomorrow. Objective - Vital Signs Vital signs: Vital Signs Temp 98.3 F 03/21/21 16:10 Pulse 67 03/21/21 16:10 Resp 18 03/21/21 16:10 BP 105/59 03/21/21 16:10 Pulse Ox 96 03/21/21 16:10 Intake & Output 03/20/21 03/21/21 03/21/21 18:59 06:59 18:59 Intake Total 293.834 68.663 114.46 Output Total 4350 1210 Balance -4056.166 -1141.337 114.46 Weight 78.471 kg 75.4 kg 75.4 kg Intake: Intake, IV Titration 53.834 68.663 114.46 Amount Heparin Sod,Pork in 0.45% 53.834 68.663 114.46 NaCl 25,000 unit In 0.45 % NaCl 1 250ml.bag @ 12 UNITS/KG/HR 9.417 mls/hr IV .Q24H [facility] Rx#: [id number] Oral 240 0 Output: Urine 4350 1210 Other: Voiding Method Urinal Urinal Urinal # Voids 1 # Bowel Movements 0 - Exam In general patient is alert and oriented x 3 in no distress HEENT head normocephalic and atraumatic Neck is supple no JVD no goiter no lymphadenopathy no carotid bruit Chest examination is clear to auscultation no crackles no wheezing Cardiac exam reveals regular heart sounds S1 and S2 no gallops no murmurs Abdomen is soft nontender no organomegaly with normal bowel sounds Extremity exam reveals no edema no cyanosis or clubbing Neurological examination reveals no gross focal deficits - Labs CBC & Chem 7: 03/21/21 07:23 03/22/21 07:32 Labs: Abnormal Lab Results - Last 24 Hours (Table) 03/20/21 03/20/21 03/20/21 Range/Units 17:07 18:02 18:02 RBC (4.30-5.90) m/uL Hgb (13.0-17.5) gm/dL RDW (11.5-15.5) % Monocytes # (0-1.0) k/uL PT (9.0-12.0) sec INR (<1.2) APTT 42.8 H (22.0-30.0) sec Carbon Dioxide (22-30) mmol/L Glucose (74-99) mg/dL POC Glucose (mg/dL) 107 H (75-99) mg/dL Alkaline Phosphatase (38-126) U/L Troponin I 0.136 H* (0.000-0.034) ng/mL Total Protein (6.3-8.2) g/dL 03/20/21 03/21/21 03/21/21 Range/Units 20:16 00:04 05:58 RBC (4.30-5.90) m/uL Hgb (13.0-17.5) gm/dL RDW (11.5-15.5) % Monocytes # (0-1.0) k/uL PT (9.0-12.0) sec INR (<1.2) APTT 40.2 H (22.0-30.0) sec Carbon Dioxide (22-30) mmol/L Glucose (74-99) mg/dL POC Glucose (mg/dL) 154 H 130 H (75-99) mg/dL Alkaline Phosphatase (38-126) U/L Troponin I (0.000-0.034) ng/mL Total Protein (6.3-8.2) g/dL 03/21/21 03/21/21 03/21/21 Range/Units 07:23 07:23 07:23 RBC 4.28 L (4.30-5.90) m/uL Hgb 12.9 L (13.0-17.5) gm/dL RDW 22.8 H (11.5-15.5) % Monocytes # 1.3 H (0-1.0) k/uL PT 13.1 H (9.0-12.0) sec INR 1.3 H (<1.2) APTT 64.3 H (22.0-30.0) sec Carbon Dioxide 33 H (22-30) mmol/L Glucose 138 H (74-99) mg/dL POC Glucose (mg/dL) (75-99) mg/dL Alkaline Phosphatase 191 H (38-126) U/L Troponin I (0.000-0.034) ng/mL Total Protein 5.9 L (6.3-8.2) g/dL 03/21/21 03/21/21 Range/Units 12:26 16:52 RBC (4.30-5.90) m/uL Hgb (13.0-17.5) gm/dL RDW (11.5-15.5) % Monocytes # (0-1.0) k/uL PT (9.0-12.0) sec INR (<1.2) APTT (22.0-30.0) sec Carbon Dioxide (22-30) mmol/L Glucose (74-99) mg/dL POC Glucose (mg/dL) 230 H 158 H (75-99) mg/dL Alkaline Phosphatase (38-126) U/L Troponin I (0.000-0.034) ng/mL Total Protein (6.3-8.2) g/dL Assessment and Plan Assessment: 1. Shortness of breath. Cardiology and pulmonary services have been consulted. Patient started on IV Lasix 2. Acute CHF exacerbation. 2-D echo has been ordered. Patient started on IV Lasix 3. Elevated troponin. Patient started on heparin drip cardiology service is consulted 4. Recent diverticulitis. Patient completed antibiotic treatment. Symptoms re solved 5. History of diabetes mellitus type 2 6. History of essential hypertension 7. History of chronic back pain 8. History of peripheral neuropathy Cardiology and pulmonary service is consulted CT of the chest to rule out PE ordered Serial troponins ordered COVID-19 test ordered 2-D echo ordered Patient maintained on IV heparin for positive troponin Continue IV Lasix
[2021-03-22 16:42] LABS: Glucose,Whole Blood 141 mg/dL (75-99)
[2021-03-22] MEDS: DICLOFENAC SODIUM GEL 100 GM TUBE TOPICAL PRN ×2 (16:56→21:55)
[2021-03-22 20:10] LABS: Glucose,Whole Blood 157 mg/dL (75-99)
[2021-03-22] MEDS: GABAPENTIN 300 MG CAP PO SCH (21:06)
[2021-03-22] MEDS: TAMSULOSIN 0.4 MG CAP.ER.24H PO SCH (21:06)
[2021-03-22] MEDS: TEMAZEPAM 15 MG CAP PO SCH (21:55)
[2021-03-23] MEDS: HEPARIN SOD,PORK IN 0.45% NACL 25,000 UNIT in 0.45% NACL 1 250ML.BAG IV SCH (04:09)
[2021-03-23 05:43] LABS: African American GFR (CKD) >90 (>60 ml/min/1.73 sqM); Anion Gap 3 mmol/L; Blood Urea Nitrogen 31 mg/dL (9-20); Calcium 9.3 mg/dL (8.4-10.2); Carbon Dioxide 35 mmol/L (22-30); Chloride 103 mmol/L (98-107); Glucose 164 mg/dL (74-99); Non-African American GFR(CKD) >90 (>60 ml/min/1.73 sqM); Potassium 3.6 mmol/L (3.5-5.1); Sodium 141 mmol/L (137-145)
[2021-03-23 06:07] LABS: Glucose,Whole Blood 141 mg/dL (75-99)
[2021-03-23] MEDS: INSULIN ASPART (NovoLOG) 100 UNIT/ML VIAL SQ SCH ×4 (06:35→21:05)
[2021-03-23] MEDS ORDERED: HEPARIN SODIUM,PORCINE 10,000 UNIT in SODIUM CHLORIDE 0.9% 1,000 ML IRRIGATION PRN (07:00)
[2021-03-23] MEDS ORDERED: HEPARIN SODIUM,PORCINE 2,500 UNIT in SODIUM CHLORIDE 0.9% 250 ML IRRIGATION PRN (07:00)
[2021-03-23] MEDS: LORATADINE 10 MG TAB PO SCH (08:20)
[2021-03-23] MEDS: PANTOPRAZOLE 40 MG TABLET PO SCH ×2 (08:20→19:43)
[2021-03-23] MEDS: CITALOPRAM HYDROBROMIDE 20 MG TAB PO SCH (08:20)
[2021-03-23] MEDS: FUROSEMIDE 40 MG TAB PO SCH (08:20)
[2021-03-23] MEDS: METOPROLOL TARTRATE 25 MG TAB PO SCH ×2 (08:20→19:43)
[2021-03-23] MEDS: DICYCLOMINE 20 MG TAB PO SCH ×4 (08:20→21:05)
[2021-03-23] MEDS: ATORVASTATIN 40 MG TAB PO SCH (08:20)
[2021-03-23] MEDS: lisinopriL 5 MG TAB PO SCH (08:20)
[2021-03-23] MEDS: NITROGLYCERIN OINT 1 INCH/GM PACKET TOPICAL SCH ×4 (08:20→21:05)
[2021-03-23] MEDS: ASPIRIN 81 MG PO SCH (08:20)
[2021-03-23] MEDS: DICLOFENAC SODIUM GEL 100 GM TUBE TOPICAL PRN ×3 (08:39→21:09)
[2021-03-23] MEDS: FLUTICASONE 50MCG/SPRAY NASAL 16GM EA NOSTRIL SCH ×2 (09:57→19:42)
--- NOTE | 2021-03-23 10:47 | P.PN ---
Subjective Progress Note Date: 03/23/21 71-year-old male who presents to the emergency department on March 20 complaining of increasing shortness of breath particularly with exertion. The patient apparently also had some mild chest discomfort as well. The patient was discovered on x-rays and CAT scans have bilateral pleural effusions, and changes on the chest x-ray which were consistent with fluid overload. The patient apparently was told that he didn't fact have a heart attack. He notices shortness of breath for about 2 or 3 days before coming to the hospital. He got progressively worse going up and down the stairs. For that reason he came in to be evaluated. I told him that I would do an ultrasound of the chest bilaterally, to determine whether or not he had enough fluid in the pleural spaces to warrant thoracentesis. He is ready negative about 5 L since being in the hospital. 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 White count 10.1, hemoglobin 12.9, hematocrit 40.1, platelet count 367,000. PT 13.1 INR 1.3 PTT is 64.3. Sodium potassium chloride normal. CO2 33. Anion gap 7, BUN 18, and creatinine 0.70. Chest x-rays consistent with CHF. CT angiogram was negative for pulmonary embolism, but did show bilateral pleural effusions. Chest ultrasound showed a 2.2 cm pocket of fluid on the right side, and a 6.4 cm pocket of fluid on the left side. Progress note dated 03/22/2021. 71-year-old male admitted with a diagnosis of shortness of breath and congestive heart failure. We are asked to see him because of high lateral pleural effusions. He is at 2.2 cm pocket of fluid on the right side, and a slightly larger pocket, measuring 6.4 cm on the left side. The patient clinically is stable. He's only on 2 L nasal cannula. In my opinion, he does not need thoracentesis. Lab data from today includes a PTT of 70.5, sodium 141, potassium 3.7, chlorides 102, CO2 34, anion gap 5, BUN 27, and creatinine 0.69. The patient is seen today 03/23/2021 in follow-up on the selective care unit. He is currently sitting up in bed. Awake and alert in no acute distress. He is maintaining O2 saturations in the 90s on 2 L/m per nasal cannula. Chest x-ray had revealed bilateral lower lobe infiltrates and COPD. Improving interstitial congestion. He remains on a heparin drip. Sodium 141. Potassium 3.6. Creatinine 0.79. Plan is for cardiac catheterization tomorrow. Objective - Vital Signs Vital signs: Vital Signs Temp 97.8 F 03/23/21 08:17 Pulse 71 03/23/21 08:17 Resp 16 03/23/21 08:17 BP 125/61 03/23/21 08:17 Pulse Ox 96 03/23/21 08:17 Intake & Output 03/22/21 03/23/21 03/23/21 18:59 06:59 18:59 Intake Total 581.367 131.495 480 Output Total 200 Balance 581.367 -68.505 480 Weight 75 kg 76.4 kg Intake: Intake, IV Titration 341.367 131.495 Amount Heparin Sod,Pork in 0.45% 341.367 131.495 NaCl 25,000 unit In 0.45 % NaCl 1 250ml.bag @ 12 UNITS/KG/HR 9.417 mls/hr IV .Q24H [facility] Rx#: [id number] Oral 240 480 Output: Urine 200 Other: Voiding Method Toilet Toilet Toilet Urinal Urinal Urinal - Exam GENERAL EXAM: Alert, pleasant 71-year-old gentleman, on 2 L nasal cannula, comfortable in no apparent distress. HEAD: Normocephalic. EYES: Normal reaction of pupils, equal size. NOSE: Clear with pink turbinates. THROAT: No erythema or exudates. NECK: No masses, no JVD. CHEST: No chest wall deformity. LUNGS: Equal air entry with crackles in the posterior bases. CVS: S1 and S2 normal with no audible murmur, regular rhythm. ABDOMEN: No hepatosplenomegaly, normal bowel sounds, no guarding or rigidity. SPINE: No scoliosis or deformity SKIN: No rashes CENTRAL NERVOUS SYSTEM: No focal deficits, tone is normal in all 4 extremities. EXTREMITIES: There is no peripheral edema. No clubbing, no cyanosis. Peripheral pulses are intact. - Labs CBC & Chem 7: 03/21/21 07:23 03/23/21 04:30 Labs: Abnormal Lab Results - Last 24 Hours (Table) 03/22/21 03/22/21 03/22/21 Range/Units 12:15 15:30 16:41 APTT 74.3 H (22.0-30.0) sec Carbon Dioxide (22-30) mmol/L BUN (9-20) mg/dL Glucose (74-99) mg/dL POC Glucose (mg/dL) 231 H 141 H (75-99) mg/dL 03/22/21 03/22/21 03/23/21 Range/Units 20:08 22:02 04:30 APTT 39.1 H (22.0-30.0) sec Carbon Dioxide 35 H (22-30) mmol/L BUN 31 H (9-20) mg/dL Glucose 164 H (74-99) mg/dL POC Glucose (mg/dL) 157 H (75-99) mg/dL 03/23/21 03/23/21 Range/Units 04:30 06:05 APTT 54.5 H (22.0-30.0) sec Carbon Dioxide (22-30) mmol/L BUN (9-20) mg/dL Glucose (74-99) mg/dL POC Glucose (mg/dL) 141 H (75-99) mg/dL Assessment and Plan Assessment: 1 Acute exacerbation of diastolic congestive heart failure 2 Bilateral pleural effusions left greater than right secondary to above 3 Chronic obstructive pulmonary disease 4 History of previous tobacco dependence 5 Diabetes mellitus. 6 Diabetic neuropathy 7 gastroesophageal reflux disease 8 Hearing disorder 9 Hypertension. 10 Osteoarthritis 11 Obstructive sleep apnea, currently maintained on CPAP 12 History of migraine cephalgia 13 Diverticular disease Plan: The patient was seen and evaluated by Dr. Cerda No plans for thoracentesis at this point Continue diuretics Continue to titrate the FiO2 as tolerated Continue heparin drip Plan is for cardiac catheterization in a.m. We will continue to follow I, the cosigning physician, performed a history & physical examination of the patient. Lungs sounds crackles in the posterior bases left greater than right. Maintaining good O2 saturations in the 90s on 2 L/m per nasal. I discussed the assessment and plan of care with my nurse practitioner, Coleen Bentley. I attest to the above note as dictated by her.
--- NOTE | 2021-03-23 10:48 | P.PN ---
Subjective Progress Note Date: 03/22/21 This is a 71-year-old male patient who presented to the ER with complaints of shortness of breath. Patient was recently hospitalized at [facility] for diverticulitis which she was treated with IV antibiotics. Patient reports that he has completed a course of antibiotics and has had significant improvement in regards to abdominal issues. Patient reports that the shortness of breath has been progressively getting worse for the past few days. Patient reports he has a increased shortness of breath with activity. Patient denies any recent fever or cough. Patient also reports that he has occasional increased lower extremity edema. Patient does have past medical history of GERD, COPD, diabetes mellitus, deafness, hypertension, prostate disorder, diverticulitis, chronic pain and sleep apnea. BNP elevated at 8210. Initial troponin 0.122. At this time cardiology services will be consulted. Patient was started on heparin drip. Patient started on IV Lasix. Patient denies any chest pain. Patient denies nausea vomiting or diarrhea. Patient denies any urinary burning or frequency. On 03/21/2021 Patient was seen and examined on the medical floor, he is alert and oriented x 3 in no distress, he denies any complaints there is no fever or chills no headache or dizziness no chest pain no shortness of breath no palpitation no cough no nausea or vomiting no abdominal pain no diarrhea no blood in the stools no burning with urination no frequency or urgency and no hematuria, there is no weakness or numbness in any of the extremities no change in vision speech or gait. Plan per cardiology is to proceed with cardiac catheterization in a.m. tomorrow. On 03/22/2021 Patient was seen and examined on the medical floor, he is alert and oriented x 3 in no distress, he denies any complaints there is no fever or chills no headache or dizziness no chest pain no shortness of breath no palpitation no cough no nausea or vomiting no abdominal pain no diarrhea no blood in the stools no burning with urination no frequency or urgency and no hematuria, there is no weakness or numbness in any of the extremities no change in vision speech or gait. Plan per cardiology is to proceed with cardiac catheterization on . Objective - Vital Signs Vital signs: Vital Signs Temp 97.9 F 03/22/21 16:00 Pulse 68 03/22/21 16:00 Resp 16 03/22/21 16:00 BP 99/55 03/22/21 16:00 Pulse Ox 95 03/22/21 16:00 Intake & Output 03/21/21 03/22/21 03/22/21 18:59 06:59 18:59 Intake Total 114.46 581.367 Output Total 900 Balance 114.46 -900 581.367 Weight 75.4 kg 75 kg 75 kg Intake: Intake, IV Titration 114.46 341.367 Amount Heparin Sod,Pork in 0.45% 114.46 341.367 NaCl 25,000 unit In 0.45 % NaCl 1 250ml.bag @ 12 UNITS/KG/HR 9.417 mls/hr IV .Q24H [facility] Rx#: [id number] Oral 0 240 Output: Urine 900 Other: Voiding Method Urinal Urinal Toilet Urinal # Voids 1 # Bowel Movements 0 - Exam In general patient is alert and oriented x 3 in no distress HEENT head normocephalic and atraumatic Neck is supple no JVD no goiter no lymphadenopathy no carotid bruit Chest examination is clear to auscultation no crackles no wheezing Cardiac exam reveals regular heart sounds S1 and S2 no gallops no murmurs Abdomen is soft nontender no organomegaly with normal bowel sounds Extremity exam reveals no edema no cyanosis or clubbing Neurological examination reveals no gross focal deficits - Labs CBC & Chem 7: 03/21/21 07:23 03/23/21 04:30 Labs: Abnormal Lab Results - Last 24 Hours (Table) 03/21/21 03/22/21 03/22/21 Range/Units 20:22 06:09 07:32 APTT 70.5 H (22.0-30.0) sec Carbon Dioxide (22-30) mmol/L BUN (9-20) mg/dL Glucose (74-99) mg/dL POC Glucose (mg/dL) 212 H 149 H (75-99) mg/dL 03/22/21 03/22/21 03/22/21 Range/Units 07:32 12:15 15:30 APTT 74.3 H (22.0-30.0) sec Carbon Dioxide 34 H (22-30) mmol/L BUN 27 H (9-20) mg/dL Glucose 136 H (74-99) mg/dL POC Glucose (mg/dL) 231 H (75-99) mg/dL 03/22/21 Range/Units 16:41 APTT (22.0-30.0) sec Carbon Dioxide (22-30) mmol/L BUN (9-20) mg/dL Glucose (74-99) mg/dL POC Glucose (mg/dL) 141 H (75-99) mg/dL Assessment and Plan Plan: 1. Shortness of breath. Cardiology and pulmonary services have been consulted. Patient started on IV Lasix 2. Acute CHF exacerbation. 2-D echo has been ordered. Patient started on IV Lasix 3. Elevated troponin. Patient started on heparin drip cardiology service is consulted 4. Recent diverticulitis. Patient completed antibiotic treatment. Symptoms resolved 5. History of diabetes mellitus type 2 6. History of essential hypertension 7. History of chronic back pain 8. History of peripheral neuropathy Cardiology and pulmonary service is consulted CT of the chest was negative for pulmonary embolism Serial troponins ordered COVID-19 test ordered and was negative 2-D echo ordered Patient maintained on IV heparin for positive troponin Continue IV Lasix
[2021-03-23 11:54] LABS: Glucose,Whole Blood 144 mg/dL (75-99)
--- NOTE | 2021-03-23 12:04 | P.PN ---
Subjective Progress Note Date: 03/23/21 This is a 71-year-old male patient who presented to the ER with complaints of shortness of breath. Patient was recently hospitalized at [facility] for diverticulitis which she was treated with IV antibiotics. Patient reports that he has completed a course of antibiotics and has had significant improvement in regards to abdominal issues. Patient reports that the shortness of breath has been progressively getting worse for the past few days. Patient reports he has a increased shortness of breath with activity. Patient denies any recent fever or cough. Patient also reports that he has occasional increased lower extremity edema. Patient does have past medical history of GERD, COPD, diabetes mellitus, deafness, hypertension, prostate disorder, diverticulitis, chronic pain and sleep apnea. BNP elevated at 8210. Initial troponin 0.122. At this time cardiology services will be consulted. Patient was started on heparin drip. Patient started on IV Lasix. Patient denies any chest pain. Patient denies nausea vomiting or diarrhea. Patient denies any urinary burning or frequency. On 03/21/2021 Patient was seen and examined on the medical floor, he is alert and oriented x 3 in no distress, he denies any complaints there is no fever or chills no headache or dizziness no chest pain no shortness of breath no palpitation no cough no nausea or vomiting no abdominal pain no diarrhea no blood in the stools no burning with urination no frequency or urgency and no hematuria, there is no weakness or numbness in any of the extremities no change in vision speech or gait. Plan per cardiology is to proceed with cardiac catheterization in a.m. tomorrow. On 03/22/2021 Patient was seen and examined on the medical floor, he is alert and oriented x 3 in no distress, he denies any complaints there is no fever or chills no headache or dizziness no chest pain no shortness of breath no palpitation no cough no nausea or vomiting no abdominal pain no diarrhea no blood in the stools no burning with urination no frequency or urgency and no hematuria, there is no weakness or numbness in any of the extremities no change in vision speech or gait. Plan per cardiology is to proceed with cardiac catheterization on . On 03/23/2021 patient alert and oriented 3 plans for cardiac catheterization tomorrow per cardiology. Patient has been transitioned to by mouth Lasix. Cardiology and pulmonary services are following. No plans for thoracentesis at this time. Patient remains on heparin drip. Patient denies chest pain. Patient denies nausea vomiting or diarrhea. Patient denies any urinary burning or frequency Objective - Vital Signs Vital signs: Vital Signs Temp 97.8 F 03/23/21 08:17 Pulse 71 03/23/21 08:17 Resp 16 03/23/21 08:17 BP 125/61 03/23/21 08:17 Pulse Ox 96 03/23/21 08:17 Intake & Output 03/22/21 03/23/21 03/23/21 18:59 06:59 18:59 Intake Total 581.367 131.495 480 Output Total 200 Balance 581.367 -68.505 480 Weight 75 kg 76.4 kg Intake: Intake, IV Titration 341.367 131.495 Amount Heparin Sod,Pork in 0.45% 341.367 131.495 NaCl 25,000 unit In 0.45 % NaCl 1 250ml.bag @ 12 UNITS/KG/HR 9.417 mls/hr IV .Q24H [facility] Rx#: [id number] Oral 240 480 Output: Urine 200 Other: Voiding Method Toilet Toilet Toilet Urinal Urinal Urinal - Exam In general patient is alert and oriented x 3 in no distress HEENT head normocephalic and atraumatic Neck is supple no JVD no goiter no lymphadenopathy no carotid bruit Chest examination is clear to auscultation no crackles no wheezing Cardiac exam reveals regular heart sounds S1 and S2 no gallops no murmurs Abdomen is soft nontender no organomegaly with normal bowel sounds Extremity exam reveals no edema no cyanosis or clubbing Neurological examination reveals no gross focal deficits - Labs CBC & Chem 7: 03/21/21 07:23 03/23/21 04:30 Labs: Abnormal Lab Results - Last 24 Hours (Table) 03/22/21 03/22/21 03/22/21 Range/Units 12:15 15:30 16:41 APTT 74.3 H (22.0-30.0) sec Carbon Dioxide (22-30) mmol/L BUN (9-20) mg/dL Glucose (74-99) mg/dL POC Glucose (mg/dL) 231 H 141 H (75-99) mg/dL 03/22/21 03/22/21 03/23/21 Range/Units 20:08 22:02 04:30 APTT 39.1 H (22.0-30.0) sec Carbon Dioxide 35 H (22-30) mmol/L BUN 31 H (9-20) mg/dL Glucose 164 H (74-99) mg/dL POC Glucose (mg/dL) 157 H (75-99) mg/dL 03/23/21 03/23/21 03/23/21 Range/Units 04:30 06:05 11:52 APTT 54.5 H (22.0-30.0) sec Carbon Dioxide (22-30) mmol/L BUN (9-20) mg/dL Glucose (74-99) mg/dL POC Glucose (mg/dL) 141 H 144 H (75-99) mg/dL Assessment and Plan Plan: 1. Shortness of breath. Cardiology and pulmonary services have been consulted. Patient started on IV Lasix. Patient has been transitioned to oral Lasix 2. Acute CHF exacerbation. 2-D echo completed showing an EF of 60-65% Patient started on IV Lasix 3. Elevated troponin. Patient started on heparin drip cardiology service is consulted 4. Recent diverticulitis. Patient completed antibiotic treatment. Symptoms resolved 5. History of diabetes mellitus type 2 6. History of essential hypertension 7. History of chronic back pain 8. History of peripheral neuropathy Cardiology and pulmonary service is consulted CT of the chest was negative for pulmonary embolism maintained on heparin drip transitioned to oral Lasix Plans for cardiac catheterization on 03/24/2021
--- NOTE | 2021-03-23 12:09 | P.PN ---
Subjective HISTORY OF PRESENTING ILLNESS This is a pleasant 71-year-old male past medical history significant for diabetes mellitus, hypertension, mitral valve prolapse with mitral regurgitation and chronic back pain. He follows in the office with Dr. Young. We have been asked to see in consultation for heart failure and elevated troponins. He presented to the hospital with a 2 day history of exertional shortness of breath. He states on a regular basis he is quite active physically however over the previous 2 days he has had difficulty with mild normal activities such as gardening or walking up and down the stairs. He denies any significant orthopnea or PND. He has no symptoms of chest discomfort. In the emergency department he underwent a chest x-ray that revealed heart failure and a CAT scan that was negative for PE, emphysematous changes and large bilateral pleural effusions. He has been initiated on IV diuretics. EKG revealed sinus mechanism with T-wave inversions in the lateral and precordial leads. This is a change from previous EKGs. Laboratory data reviewed, WBC 10.1, hemoglobin 12.9, platelets 367, sodium 142, potassium 3.8, creatinine 0.7, magnesium 1.7, troponin 0.122, 0.134, 0.136 and NT proBNP 8210. Current daily cardiac medications include lisinopril 5 mg daily. 03/23/2021 Pt seen and examined sitting up in the recliner in no acute distress. He states he was up walking yesterday without difficulty. However, this morning he attempted to walk down the hallway and he got short of breath and had to return to his room. He was able to lay flat and sleep through the night. Blood pressure 125/61 heart rate 71 afebrile maintaining oxygen saturation on nasal cannula. Laboratory data reviewed, sodium 141, potassium 3.6, creatinine 0.79. Repeat chest x-ray reveals COPD with bilateral lower lobe infiltrates, improving interstitial pneumonitis or congestion. PHYSICAL EXAMINATION CONSTITUTIONAL: No apparent distress. HEENT: Head is normocephalic. Pupils are equal, round. Sclerae anicteric. Mucous membranes of the mouth are moist. No JVD. No carotid bruit. CHEST EXAMINATION: Lungs are clear to auscultation. Diminished bilaterally. No chest wall tenderness is noted on palpation or with deep breathing. HEART EXAMINATION: Regular rate and rhythm. S1, S2 heard. Soft systolic ejection murmur at the left sternal border and apex, no gallops or rub. EXTREMITIES: 2+ peripheral pulses, no lower extremity edema and no calf tenderness. ASSESSMENT Non-ST elevated myocardial infarction Acute heart failure, likely diastolic related to mitral valve prolapse. Echocardiogram pending. Hypertension History of mitral valve prolapse PLAN Cardiac catheterization with Dr. Young tomorrow. I have discussed the risks, benefits and alternative therapies for the above- mentioned procedure and for both sedation/analgesia as well as necessary blood product administration, if indicated, as they pertain to this patient. The patient has indicated understanding and acceptance of the risks and procedures discussed. Questions have been answered appropriately and he is agreeable to move forward with the above-stated procedure. Questions have been answered appropriately and he is agreeable to move forward with the above stated procedure. Further recommendations to follow based on clinical course. Nurse Practitioner note has been reviewed, I agree with a documented findings and plan of care. Patient was seen and examined. Objective - Vital Signs Vital signs: Vital Signs Temp 97.8 F 03/23/21 08:17 Pulse 71 03/23/21 08:17 Resp 16 03/23/21 08:17 BP 125/61 03/23/21 08:17 Pulse Ox 96 03/23/21 08:17 Intake & Output 03/22/21 03/23/21 03/23/21 18:59 06:59 18:59 Intake Total 581.367 131.495 480 Output Total 200 Balance 581.367 -68.505 480 Weight 75 kg 76.4 kg Intake: Intake, IV Titration 341.367 131.495 Amount Heparin Sod,Pork in 0.45% 341.367 131.495 NaCl 25,000 unit In 0.45 % NaCl 1 250ml.bag @ 12 UNITS/KG/HR 9.417 mls/hr IV .Q24H [facility] Rx#: [id number] Oral 240 480 Output: Urine 200 Other: Voiding Method Toilet Toilet Toilet Urinal Urinal Urinal - Labs CBC & Chem 7: 03/21/21 07:23 03/23/21 04:30 Labs: Abnormal Lab Results - Last 24 Hours (Table) 03/22/21 03/22/21 03/22/21 Range/Units 12:15 15:30 16:41 APTT 74.3 H (22.0-30.0) sec Carbon Dioxide (22-30) mmol/L BUN (9-20) mg/dL Glucose (74-99) mg/dL POC Glucose (mg/dL) 231 H 141 H (75-99) mg/dL 03/22/21 03/22/21 03/23/21 Range/Units 20:08 22:02 04:30 APTT 39.1 H (22.0-30.0) sec Carbon Dioxide 35 H (22-30) mmol/L BUN 31 H (9-20) mg/dL Glucose 164 H (74-99) mg/dL POC Glucose (mg/dL) 157 H (75-99) mg/dL 03/23/21 03/23/21 03/23/21 Range/Units 04:30 06:05 11:52 APTT 54.5 H (22.0-30.0) sec Carbon Dioxide (22-30) mmol/L BUN (9-20) mg/dL Glucose (74-99) mg/dL POC Glucose (mg/dL) 141 H 144 H (75-99) mg/dL
[2021-03-23 16:30] LABS: Hemoglobin A1C 5.9 % (4.0-6.0)
[2021-03-23 16:57] LABS: Glucose,Whole Blood 185 mg/dL (75-99)
[2021-03-23] MEDS: MORPHINE SULFATE 2 MG/ML SYRINGE IVP PRN (19:43)
[2021-03-23] MEDS: GABAPENTIN 300 MG CAP PO SCH (19:43)
[2021-03-23] MEDS: TAMSULOSIN 0.4 MG CAP.ER.24H PO SCH (19:43)
[2021-03-23 20:30] LABS: Glucose,Whole Blood 191 mg/dL (75-99)
[2021-03-23] MEDS: TEMAZEPAM 15 MG CAP PO SCH (21:05)
[2021-03-23] MEDS ORDERED: SODIUM CHLORIDE 0.9% 1,000 ML in EMPTY BAG 1 BAG IV ONE (23:59)
[2021-03-24] MEDS: MORPHINE SULFATE 2 MG/ML SYRINGE IVP PRN ×4 (03:47→21:39)
[2021-03-24 06:05] LABS: Glucose,Whole Blood 135 mg/dL (75-99)
[2021-03-24] MEDS: INSULIN ASPART (NovoLOG) 100 UNIT/ML VIAL SQ SCH ×4 (06:06→21:40)
[2021-03-24] MEDS: ASPIRIN 81 MG PO SCH (06:12)
[2021-03-24] MEDS: CITALOPRAM HYDROBROMIDE 20 MG TAB PO SCH (06:12)
[2021-03-24] MEDS: PANTOPRAZOLE 40 MG TABLET PO SCH ×2 (06:13→20:11)
[2021-03-24] MEDS: METOPROLOL TARTRATE 25 MG TAB PO SCH ×2 (06:13→20:11)
[2021-03-24] MEDS: ATORVASTATIN 40 MG TAB PO SCH (06:13)
[2021-03-24] MEDS: NITROGLYCERIN OINT 1 INCH/GM PACKET TOPICAL SCH (06:13)
[2021-03-24] MEDS: LORATADINE 10 MG TAB PO SCH (06:13)
[2021-03-24] MEDS: lisinopriL 5 MG TAB PO SCH (06:13)
[2021-03-24] MEDS: DICYCLOMINE 20 MG TAB PO SCH ×4 (06:13→21:50)
[2021-03-24] MEDS: FLUTICASONE 50MCG/SPRAY NASAL 16GM EA NOSTRIL SCH ×2 (06:16→20:12)
[2021-03-24 07:54] LABS: Anisocytosis Moderate; Basophils % (A) 0 %; Eosinophils # (A) 0.2 k/uL (0-0.7); Eosinophils % (A) 3 %; HCT 35.8 % (39.0-53.0); HGB 11.1 gm/dL (13.0-17.5); Hypochromasia Moderate; Lymphocytes # (A) 2.1 k/uL (1.0-4.8); Lymphocytes % (A) 26 %; MCH 29.7 pg (25.0-35.0); MCV 95.7 fL (80.0-100.0); Macrocytosis Slight; Mean Platelet Volume 8.3; Microcytosis Slight; Monocytes # (A) 0.9 k/uL (0-1.0); Monocytes % (A) 11 %; Neutrophils # (A) 4.7 k/uL (1.3-7.7); Neutrophils % (A) 57 %; Platelet Count 315 k/uL (150-450); Poikilocytosis Slight; RBC 3.74 m/uL (4.30-5.90); RDW 22.5 % (11.5-15.5); WBC 8.3 k/uL (3.8-10.6)
[2021-03-24 08:11] LABS: ALT 20 U/L (4-49); AST 25 U/L (17-59); African American GFR (CKD) >90 (>60 ml/min/1.73 sqM); Albumin 3.5 g/dL (3.5-5.0); Alkaline Phosphatase 344 U/L (38-126); Anion Gap 4 mmol/L; Blood Urea Nitrogen 29 mg/dL (9-20); Calcium 9.1 mg/dL (8.4-10.2); Carbon Dioxide 33 mmol/L (22-30); Chloride 103 mmol/L (98-107); Glucose 134 mg/dL (74-99); Non-African American GFR(CKD) >90 (>60 ml/min/1.73 sqM); Potassium 4.2 mmol/L (3.5-5.1); Sodium 140 mmol/L (137-145); Total Bilirubin 0.9 mg/dL (0.2-1.3); Total Protein 5.5 g/dL (6.3-8.2)
[2021-03-24] MEDS ORDERED: ASPIRIN 81 MG PO ONE (08:30)
[2021-03-24] MEDS ORDERED: IV FLUID CONTINUATION 500 ML IV ONE (09:13)
[2021-03-24] MEDS ORDERED: fentaNYL (PF) 50 MCG/ML 2 ML AMP IV ONE (09:20)
[2021-03-24] MEDS: MIDAZOLAM 2 MG/2 ML VIAL IV ONE ×2 (09:20→09:48)
[2021-03-24] MEDS: LIDOCAINE 1% INJ 10MG/ML (20 ML MDV) SQ ONE ×2 (09:22→09:42)
[2021-03-24] MEDS ORDERED: VERAPAMIL SYRINGE (5 MG/10 ML) INTRAARTER ONE (09:45)
[2021-03-24] MEDS ORDERED: HEPARIN SODIUM 1,000 UN/ML (10ML VL) IV ONE (09:48)
[2021-03-24] MEDS ORDERED: RX INFO: IV CONTRAST WAS GIVEN 1 EACH MISC MISCELLANE PRN (10:18)
[2021-03-24] MEDS ORDERED: IOPAMIDOL-370 125ML BTL INJ ONE (10:21)
--- NOTE | 2021-03-24 10:27 | P.CARDCATH ---
Date of Procedure: 03/24/21 Postoperative Diagnosis: CHF and positive troponins Procedure(s) Performed: left heart catheterization without left ventriculography Description of Procedure: HISTORY: This is a 71-year-old gentleman was admitted to the hospital with CHF and pleural effusion. He had a positive troponin values. Cardiac catheterization is requested to rule out underlying ischemic heart disease CONSENT:I have discussed the risks, benefits and alternative therapies for the above-mentioned procedure and for both sedation/analgesia as well as necessary blood product administration, if indicated, as they pertain to this patient. The patient has indicated understanding and acceptance of the risks and procedures discussed. PROCEDURE: Patient was brought to the lab in a fasting state. Patient was given some IV sedation. Attempts were made to engage right radial artery without success . The cardiac catheterization performed on the left radial approach.The left wrist is infiltrated with lidocaine and left radial artery was entered using Seldinger technique. A 6-Italian catheter was left in place and selective coronary arteriography was performed. Patient tolerated the procedure well. TR band was applied for hemostasis. No immediate complications were noted and patient was transferred to [facility] in a stable condition Conscious Sedation: Versed 2mg Fentanyl 25 g Duration 50minutes HEMODYNAMICS: The aortic pressure is 100/70.The left ventricle end-diastolic pressure was not measured SELECTIVE CORONARY ARTERIOGRAPHY: [] LEFT MAIN: Short and divides into the left anterior descending and circumflex coronary artery immediately.Free of occlusive disease THE LEFT ANTERIOR DESCENDING CORONARY ARTERY: Good caliber vessel. Free of any significant occlusive disease. Mild intimal plaque noted THE LEFT CIRCUMFLEX AND IS CORONARY ARTERY: Good caliber vessel free of any significant occlusive disease THE RIGHT CORONARY ARTERY: Good caliber vessel and dominant. Free of any occlusive disease LEFT VENTRICULOGRAPHY: not performed FINAL IMPRESSION: Normal coronary arteries with minimal intimal Plaque PLAN: maximum medical therapy PROGNOSIS: fair
[2021-03-24 11:48] LABS: Glucose,Whole Blood 206 mg/dL (75-99)
[2021-03-24] MEDS: SODIUM CHLORIDE 0.9% 1,000 ML IV SCH (12:31)
[2021-03-24] MEDS: FUROSEMIDE 40 MG TAB PO SCH (12:31)
--- NOTE | 2021-03-24 15:39 | P.PN ---
Subjective Progress Note Date: 03/24/21 71-year-old male who presents to the emergency department on March 20 complaining of increasing shortness of breath particularly with exertion. The patient apparently also had some mild chest discomfort as well. The patient was discovered on x-rays and CAT scans have bilateral pleural effusions, and changes on the chest x-ray which were consistent with fluid overload. The patient apparently was told that he didn't fact have a heart attack. He notices shortness of breath for about 2 or 3 days before coming to the hospital. He got progressively worse going up and down the stairs. For that reason he came in to be evaluated. I told him that I would do an ultrasound of the chest bilaterally, to determine whether or not he had enough fluid in the pleural spaces to warrant thoracentesis. He is ready negative about 5 L since being in the hospital. 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 White count 10.1, hemoglobin 12.9, hematocrit 40.1, platelet count 367,000. PT 13.1 INR 1.3 PTT is 64.3. Sodium potassium chloride normal. CO2 33. Anion gap 7, BUN 18, and creatinine 0.70. Chest x-rays consistent with CHF. CT angiogram was negative for pulmonary embolism, but did show bilateral pleural effusions. Chest ultrasound showed a 2.2 cm pocket of fluid on the right side, and a 6.4 cm pocket of fluid on the left side. Progress note dated 03/22/2021. 71-year-old male admitted with a diagnosis of shortness of breath and congestive heart failure. We are asked to see him because of high lateral pleural effusions. He is at 2.2 cm pocket of fluid on the right side, and a slightly larger pocket, measuring 6.4 cm on the left side. The patient clinically is stable. He's only on 2 L nasal cannula. In my opinion, he does not need thoracentesis. Lab data from today includes a PTT 70.5, sodium 141, potassium 3.7, chlorides 102, CO2 34, anion gap 5, BUN 27, and creatinine 0.69. The patient is seen today 03/23/2021 in follow-up on the selective care unit. Randa smalls is currently sitting up in bed. Awake and alert in no acute distress. He is maintaining O2 saturations in the 90s on 2 L/m per nasal cannula. Chest x-ray had revealed bilateral lower lobe infiltrates and COPD. Improving interstitial congestion. He remains on a heparin drip. Sodium 141. Potassium 3.6. Creatinine 0.79. Plan is for cardiac catheterization tomorrow. Patient is seen today 03/24/2021 in follow-up on the selective care unit. Awake and alert in no acute distress. He did undergo cardiac catheterization today which revealed normal coronary arteries with minimal intimal plaque. Continue medical therapy. He denies any shortness of breath, cough or congestion. No chest pain. White count 8.3. Hemoglobin 11.1. Sodium 140. Potassium 4.2. Creatinine 0.66. Objective - Vital Signs Vital signs: Vital Signs Temp 98.4 F 03/24/21 04:00 Pulse 51 L 03/24/21 10:33 Resp 17 03/24/21 04:00 BP 106/60 03/24/21 10:33 Pulse Ox 91 L 03/24/21 10:33 Intake & Output 03/23/21 03/24/21 03/24/21 18:59 06:59 18:59 Intake Total 960 892.789 Output Total 825 150 Balance 135 742.789 Weight 76.2 kg Intake: IV 100 Intake, IV Titration 232.789 Amount Heparin Sod,Pork in 0.45% 232.789 NaCl 25,000 unit In 0.45 % NaCl 1 250ml.bag @ 12 UNITS/KG/HR 9.417 mls/hr IV .Q24H [facility] Rx#: [id number] Oral 960 560 Output: Urine 825 150 Other: Voiding Method Toilet Toilet Urinal Urinal - Exam GENERAL EXAM: Alert, pleasant 71-year-old gentleman, on 2 L nasal cannula, comfortable in no apparent distress. HEAD: Normocephalic. EYES: Normal reaction of pupils, equal size. NOSE: Clear with pink turbinates. THROAT: No erythema or exudates. NECK: No masses, no JVD. CHEST: No chest wall deformity. LUNGS: Equal air entry with crackles in the posterior bases. CVS: S1 and S2 normal with no audible murmur, regular rhythm. ABDOMEN: No hepatosplenomegaly, normal bowel sounds, no guarding or rigidity. SPINE: No scoliosis or deformity SKIN: No rashes CENTRAL NERVOUS SYSTEM: No focal deficits, tone is normal in all 4 extremities. EXTREMITIES: There is no peripheral edema. No clubbing, no cyanosis. Peripheral pulses are intact. - Labs CBC & Chem 7: 03/24/21 06:57 03/24/21 06:57 Labs: Abnormal Lab Results - Last 24 Hours (Table) 03/23/21 03/23/21 03/24/21 Range/Units 16:55 20:26 06:02 RBC (4.30-5.90) m/uL Hgb (13.0-17.5) gm/dL Hct (39.0-53.0) % RDW (11.5-15.5) % APTT (22.0-30.0) sec Carbon Dioxide (22-30) mmol/L BUN (9-20) mg/dL Glucose (74-99) mg/dL POC Glucose (mg/dL) 185 H 191 H 135 H (75-99) mg/dL Alkaline Phosphatase (38-126) U/L Total Protein (6.3-8.2) g/dL 03/24/21 03/24/21 03/24/21 Range/Units 06:57 06:57 06:57 RBC 3.74 L (4.30-5.90) m/uL Hgb 11.1 L (13.0-17.5) gm/dL Hct 35.8 L (39.0-53.0) % RDW 22.5 H (11.5-15.5) % APTT 62.0 H (22.0-30.0) sec Carbon Dioxide 33 H (22-30) mmol/L BUN 29 H (9-20) mg/dL Glucose 134 H (74-99) mg/dL POC Glucose (mg/dL) (75-99) mg/dL Alkaline Phosphatase 344 H (38-126) U/L Total Protein 5.5 L (6.3-8.2) g/dL 03/24/21 Range/Units 11:46 RBC (4.30-5.90) m/uL Hgb (13.0-17.5) gm/dL Hct (39.0-53.0) % RDW (11.5-15.5) % APTT (22.0-30.0) sec Carbon Dioxide (22-30) mmol/L BUN (9-20) mg/dL Glucose (74-99) mg/dL POC Glucose (mg/dL) 206 H (75-99) mg/dL Alkaline Phosphatase (38-126) U/L Total Protein (6.3-8.2) g/dL Assessment and Plan Assessment: 1 Acute exacerbation of diastolic congestive heart failure 2 Bilateral pleural effusions left greater than right secondary to above 3 Chronic obstructive pulmonary disease 4 History of previous tobacco dependence 5 Diabetes mellitus 6 Diabetic neuropathy 7 gastroesophageal reflux disease 8 Hearing disorder 9 Hypertension. 10 Osteoarthritis 11 Obstructive sleep apnea, currently maintained on CPAP 12 History of migraine cephalgia 13 Diverticular disease Plan: The patient was seen and evaluated by Dr. Cerda Cardiac catheterization revealed normal coronary arteries with mild intimal plaque Stable from the pulmonary standpoint I, the cosigning physician, performed a history & physical examination of the patient. Lungs sounds crackles in the posterior bases left greater than right. Maintaining good O2 saturations in the 90s on 2 L/m per nasal. I discussed the assessment and plan of care with my nurse practitioner, Coleen Bentley. I attest to the above note as dictated by her.
[2021-03-24 17:01] LABS: Glucose,Whole Blood 128 mg/dL (75-99)
[2021-03-24] MEDS: GABAPENTIN 300 MG CAP PO SCH (20:11)
[2021-03-24] MEDS: TAMSULOSIN 0.4 MG CAP.ER.24H PO SCH (20:11)
[2021-03-24 20:44] VITALS: RESP 16
[2021-03-24 21:04] LABS: Glucose,Whole Blood 145 mg/dL (75-99)
[2021-03-24] MEDS: TEMAZEPAM 15 MG CAP PO SCH (21:50)
[2021-03-24] MEDS: DICLOFENAC SODIUM GEL 100 GM TUBE TOPICAL PRN (21:52)
[2021-03-25] MEDS: MORPHINE SULFATE 2 MG/ML SYRINGE IVP PRN ×3 (00:51→09:11)
[2021-03-25] MEDS: SODIUM CHLORIDE 0.9% 1,000 ML IV SCH (04:06)
[2021-03-25] MEDS: DICLOFENAC SODIUM GEL 100 GM TUBE TOPICAL PRN ×2 (04:08→09:19)
[2021-03-25 06:11] LABS: Glucose,Whole Blood 143 mg/dL (75-99)
[2021-03-25] MEDS: INSULIN ASPART (NovoLOG) 100 UNIT/ML VIAL SQ SCH ×2 (06:15→12:21)
[2021-03-25] MEDS: ATORVASTATIN 40 MG TAB PO SCH (09:11)
[2021-03-25] MEDS: ASPIRIN 81 MG PO SCH (09:11)
[2021-03-25] MEDS: FUROSEMIDE 40 MG TAB PO SCH (09:11)
[2021-03-25] MEDS: DICYCLOMINE 20 MG TAB PO SCH ×2 (09:11→12:22)
[2021-03-25] MEDS: lisinopriL 5 MG TAB PO SCH (09:11)
[2021-03-25] MEDS: LORATADINE 10 MG TAB PO SCH (09:11)
[2021-03-25] MEDS: CITALOPRAM HYDROBROMIDE 20 MG TAB PO SCH (09:11)
[2021-03-25] MEDS: METOPROLOL TARTRATE 25 MG TAB PO SCH (09:11)
[2021-03-25] MEDS: PANTOPRAZOLE 40 MG TABLET PO SCH (09:11)
[2021-03-25] MEDS: FLUTICASONE 50MCG/SPRAY NASAL 16GM EA NOSTRIL SCH (09:19)
--- NOTE | 2021-03-25 09:36 | XR ---
EXAMINATION TYPE: XR chest 2V DATE OF EXAM: 03/25/2021 COMPARISON: 03/22/2021 TECHNIQUE: PA and lateral views submitted. HISTORY: Shortness of breath FINDINGS: Hyperinflation and borderline to mild cardiomegaly. Lobulation of the right hemidiaphragm with basila r subsegmental consolidation and small effusion. Underlying COPD suspected. Biapical pleural thickeni ng. No overt failure. IMPRESSION: 1. Bilateral lower lobe infiltrate and small effusion superimposed on a background of COPD stable.
--- NOTE | 2021-03-25 10:01 | P.PN ---
Subjective HISTORY OF PRESENTING ILLNESS This is a pleasant 71-year-old male past medical history significant for diabetes mellitus, hypertension, mitral valve prolapse with mitral regurgitation and chronic back pain. He follows in the office with Dr. Young. We have been asked to see in consultation for heart failure and elevated troponins. He presented to the hospital with a 2 day history of exertional shortness of breath. He states on a regular basis he is quite active physically however over the previous 2 days he has had difficulty with mild normal activities such as gardening or walking up and down the stairs. He denies any significant orthopnea or PND. He has no symptoms of chest discomfort. In the emergency department he underwent a chest x-ray that revealed heart failure and a CAT scan that was negative for PE, emphysematous changes and large bilateral pleural effusions. He has been initiated on IV diuretics. EKG revealed sinus mechanism with T-wave inversions in the lateral and precordial leads. This is a change from previous EKGs. Laboratory data reviewed, WBC 10.1, hemoglobin 12.9, platelets 367, sodium 142, potassium 3.8, creatinine 0.7, magnesium 1.7, troponin 0.122, 0.134, 0.136 and NT proBNP 8210. Current daily cardiac medications include lisinopril 5 mg daily. 03/25/2021 Pt seen and examined sitting up in the recliner in no acute distress. He underwent catheterization yesterday revealing normal coronary arteries. No obstructive disease. He denies chest pain or significant shortness of breath. Vitals are stable. Small hematoma noted per nursing to the left radial access site that was compressed. PHYSICAL EXAMINATION CONSTITUTIONAL: No apparent distress. HEENT: Head is normocephalic. Pupils are equal, round. Sclerae anicteric. Mucous membranes of the mouth are moist. No JVD. No carotid bruit. CHEST EXAMINATION: Lungs are clear to auscultation. Diminished bilaterally. No chest wall tenderness is noted on palpation or with deep breathing. HEART EXAMINATION: Regular rate and rhythm. S1, S2 heard. Soft systolic ejection murmur at the left sternal border and apex, no gallops or rub. EXTREMITIES: 2+ peripheral pulses, no lower extremity edema and no calf tenderness. Left radial access site soft, non-tender with ecchymosis noted. Strong pulses. ASSESSMENT Non-ST elevated myocardial infarction Acute heart failure, likely diastolic related to mitral valve prolapse. Echocardiogram pending. Hypertension History of mitral valve prolapse PLAN Stable for discharge from a cardiac perspective on current medical regimen. Decrease atorvastatin to 10 mg daily. Follow up with Dr. Young in 1 week. Nurse Practitioner note has been reviewed, I agree with a documented findings and plan of care. Patient was seen and examined. Objective - Vital Signs Vital signs: Vital Signs Temp 98.6 F 03/24/21 20:00 Pulse 73 03/25/21 04:00 Resp 16 03/25/21 04:00 BP 124/63 03/25/21 04:00 Pulse Ox 92 L 03/25/21 04:00 Intake & Output 03/24/21 03/25/21 03/25/21 18:59 06:59 18:59 Intake Total 1132.789 600 Output Total 950 600 Balance 182.789 0 Weight 75.3 kg Intake: IV 100 Intake, IV Titration 232.789 600 Amount Heparin Sod,Pork in 0.45% 232.789 NaCl 25,000 unit In 0.45 % NaCl 1 250ml.bag @ 12 UNITS/KG/HR 9.417 mls/hr IV .Q24H [facility] Rx#: [id number] Sodium Chloride 0.9% 1, 600 000 ml @ 75 mls/hr IV . [id number] [facility] Rx#:[id number] Oral 800 Output: Urine 950 600 - Labs CBC & Chem 7: 03/24/21 06:57 03/24/21 06:57 Labs: Abnormal Lab Results - Last 24 Hours (Table) 03/24/21 03/24/21 03/24/21 Range/Units 11:46 16:59 21:00 POC Glucose (mg/dL) 206 H 128 H 145 H (75-99) mg/dL 03/25/21 Range/Units 06:09 POC Glucose (mg/dL) 143 H (75-99) mg/dL
[2021-03-25 10:18] LABS: Anisocytosis Moderate; Basophils # (A) 0.1 k/uL (0-0.2); Basophils % (A) 1 %; Eosinophils # (A) 0.3 k/uL (0-0.7); Eosinophils % (A) 3 %; HCT 37.1 % (39.0-53.0); HGB 11.9 gm/dL (13.0-17.5); Hypochromasia Moderate; Lymphocytes # (A) 2.3 k/uL (1.0-4.8); Lymphocytes % (A) 22 %; MCH 30.5 pg (25.0-35.0); MCHC 32.2 g/dL (31.0-37.0); MCV 94.9 fL (80.0-100.0); Macrocytosis Slight; Mean Platelet Volume 9.2; Microcytosis Slight; Monocytes # (A) 1.4 k/uL (0-1.0); Monocytes % (A) 14 %; Neutrophils # (A) 5.7 k/uL (1.3-7.7); Neutrophils % (A) 57 %; Platelet Count 302 k/uL (150-450); Poikilocytosis Slight; RBC 3.91 m/uL (4.30-5.90); RDW 22.4 % (11.5-15.5); WBC 10.1 k/uL (3.8-10.6)
[2021-03-25 10:21] LABS: ALT 21 U/L (4-49); African American GFR (CKD) >90 (>60 ml/min/1.73 sqM); Albumin 3.8 g/dL (3.5-5.0); Anion Gap 7 mmol/L; Blood Urea Nitrogen 25 mg/dL (9-20); Calcium 8.9 mg/dL (8.4-10.2); Carbon Dioxide 24 mmol/L (22-30); Chloride 105 mmol/L (98-107); Glucose 153 mg/dL (74-99); Non-African American GFR(CKD) >90 (>60 ml/min/1.73 sqM); Sodium 136 mmol/L (137-145); Total Bilirubin 0.7 mg/dL (0.2-1.3); Total Protein 6.2 g/dL (6.3-8.2)
[2021-03-25 10:22] LABS: AST 36 U/L (17-59); Alkaline Phosphatase 266 U/L (38-126); Potassium 4.8 mmol/L (3.5-5.1)
--- NOTE | 2021-03-25 10:56 | P.DS ---
Providers Date of admission: 03/20/21 11:59 Expected date of discharge: 03/25/21 Attending physician: Haley Villa Consults: 03/20/21 11:59 Consult Physician Urgent Consulting Provider: Leonardo Can Consult Reason/Comments: CHF Do you want consulting provider notified?: Yes 03/20/21 12:01 Consult Physician Urgent Consulting Provider: [facility] Consult Reason/Comments: CHF, elevated trop Do you want consulting provider notified?: Yes Primary care physician: Siria Hastings Hospital Course: Discharge diagnosis 1. Shortness of breath. Cardiology and pulmonary services have been consulted. Patient started on IV Lasix. Patient has been transitioned to oral Lasix 2. Acute CHF exacerbation. 2-D echo completed showing an EF of 60-65% Patient started on IV Lasix patient has been transitioned to by mouth Lasix will be resumed on discharge 40 mg daily per cardiology recommendation 3. Elevated troponin. Patient started on heparin drip cardiology service is consulted 4. Recent diverticulitis. Patient completed antibiotic treatment. Symptoms resolved 5. History of diabetes mellitus type 2 6. History of essential hypertension 7. History of chronic back pain 8. History of peripheral neuropathy Hospital course This is a 71-year-old male patient who presented to the ER with complaints of shortness of breath. Patient was recently hospitalized at [facility] for diverticulitis which she was treated with IV antibiotics. Patient reports that he has completed a course of antibiotics and has had significant improvement in regards to abdominal issues. Patient reports that the shortness of breath has been progressively getting worse for the past few days. Patient reports he has a increased shortness of breath with activity. Patient denies any recent fever or cough. Patient also reports that he has occasional increased lower extremity edema. Patient does have past medical history of GERD, COPD, diabetes mellitus, deafness, hypertension, prostate disorder, diverticulitis, chronic pain and sleep apnea. BNP elevated at 8210. Initial troponin 0.122. At this time cardiology services will be consulted. Patient was started on heparin drip. Patient started on IV Lasix. Patient denies any chest pain. Patient denies nausea vomiting or diarrhea. Patient denies any urinary burning or frequency. On 03/21/2021 Patient was seen and examined on the medical floor, he is alert and oriented x 3 in no distress, he denies any complaints there is no fever or c hills no headache or dizziness no chest pain no shortness of breath no palpitation no cough no nausea or vomiting no abdominal pain no diarrhea no blood in the stools no burning with urination no frequency or urgency and no hematuria, there is no weakness or numbness in any of the extremities no change in vision speech or gait. Plan per cardiology is to proceed with cardiac catheterization in a.m. tomorrow. On 03/22/2021 Patient was seen and examined on the medical floor, he is alert and oriented x 3 in no distress, he denies any complaints there is no fever or chills no headache or dizziness no chest pain no shortness of breath no palpitation no cough no nausea or vomiting no abdominal pain no diarrhea no blood in the stools no burning with urination no frequency or urgency and no hematuria, there is no weakness or numbness in any of the extremities no change in vision speech or gait. Plan per cardiology is to proceed with cardiac catheterization on . On 03/23/2021 patient alert and oriented 3 plans for cardiac catheterization tomorrow per cardiology. Patient has been transitioned to by mouth Lasix. Cardiology and pulmonary services are following. No plans for thoracentesis at this time. Patient remains on heparin drip. Patient denies chest pain. Patient denies nausea vomiting or diarrhea. Patient denies any urinary burning or frequency On 03/25/2021. Patient is status post cardiac catheterization revealing normal coronary arteries. Patient has been cleared for discharge from cardiology and pulmonary services. Patient will be discharged on Lasix 40 mg daily and Lipitor. At this time patient feels ready to be discharged home. Patient denies chest pain or shortness breath. Patient denies nausea vomiting or diarrhea. Patient denies any urinary burning or frequency Patient Condition at Discharge: Stable Plan - Discharge Summary Discharge Rx Participant: No New Discharge Prescriptions: New Furosemide [Lasix] 40 mg PO DAILY 30 Days #30 tab Atorvastatin [Lipitor] 10 mg PO DAILY 30 Days #30 tab Metoprolol Tartrate [Lopressor] 25 mg PO BID 30 Days #60 tab Continue Temazepam [Restoril] 30 mg PO HS Citalopram Hydrobromide [CeleXA] 40 mg PO DAILY Levocetirizine Dihydrochloride [Xyzal] 5 mg PO HS Tamsulosin [Flomax] 0.4 mg PO HS metFORMIN HCL [Glucophage Xr] 500 mg PO BID Fluticasone Nasal [place] [Flonase Nasal [place]] 2 spr EA NOSTRIL BID lisinopriL [Prinivil] 5 mg PO DAILY Loratadine-Pseudoeph 10-240 mg [Claritin-D 24 Hour] 1 tab PO DAILY PRN PRN Reason: Allergy Symptoms Dicyclomine [Bentyl] 20 mg PO QID Diclofenac Sodium Gel [Voltaren Gel] 4 gm TOPICAL TID PRN PRN Reason: Pain Gabapentin 600 mg PO HS Omeprazole 40 mg PO BID Discharge Medication List Temazepam [Restoril] 30 mg PO HS 03/05/15 [History] Citalopram Hydrobromide [CeleXA] 40 mg PO DAILY 02/05/16 [History] Levocetirizine Dihydrochloride [Xyzal] 5 mg PO HS 07/13/16 [History] Tamsulosin [Flomax] 0.4 mg PO HS 07/13/16 [History] metFORMIN HCL [Glucophage Xr] 500 mg PO BID 11/27/16 [History] Fluticasone Nasal [place] [Flonase Nasal [place]] 2 spr EA NOSTRIL BID 03/26/18 [History] lisinopriL [Prinivil] 5 mg PO DAILY 08/01/19 [History] Loratadine-Pseudoeph 10-240 mg [Claritin-D 24 Hour] 1 tab PO DAILY PRN 08/14/19 [History] Dicyclomine [Bentyl] 20 mg PO QID 07/21/20 [History] Diclofenac Sodium Gel [Voltaren Gel] 4 gm TOPICAL TID PRN 01/06/21 [History] Gabapentin 600 mg PO HS 03/20/21 [History] Omeprazole 40 mg PO BID 03/20/21 [History] Atorvastatin [Lipitor] 10 mg PO DAILY 30 Days #30 tab 03/25/21 [Rx] Furosemide [Lasix] 40 mg PO DAILY 30 Days #30 tab 03/25/21 [Rx] Metoprolol Tartrate [Lopressor] 25 mg PO BID 30 Days #60 tab 03/25/21 [Rx] Follow up Appointment(s)/Referral(s): Siria Hastings MD [Primary Care Provider] - 1-2 days Adrienne Young MD [STAFF PHYSICIAN] - 1 Week
--- NOTE | 2021-03-25 10:56 | P.PN ---
Subjective Progress Note Date: 03/24/21 This is a 71-year-old male patient who presented to the ER with complaints of shortness of breath. Patient was recently hospitalized at [facility] for diverticulitis which she was treated with IV antibiotics. Patient reports that he has completed a course of antibiotics and has had significant improvement in regards to abdominal issues. Patient reports that the shortness of breath has been progressively getting worse for the past few days. Patient reports he has a increased shortness of breath with activity. Patient denies any recent fever or cough. Patient also reports that he has occasional increased lower extremity edema. Patient does have past medical history of GERD, COPD, diabetes mellitus, deafness, hypertension, prostate disorder, diverticulitis, chronic pain and sleep apnea. BNP elevated at 8210. Initial troponin 0.122. At this time cardiology services will be consulted. Patient was started on heparin drip. Patient started on IV Lasix. Patient denies any chest pain. Patient denies nausea vomiting or diarrhea. Patient denies any urinary burning or frequency. On 03/21/2021 Patient was seen and examined on the medical floor, he is alert and oriented x 3 in no distress, he denies any complaints there is no fever or chills no headache or dizziness no chest pain no shortness of breath no palpitation no cough no nausea or vomiting no abdominal pain no diarrhea no blood in the stools no burning with urination no frequency or urgency and no hematuria, there is no weakness or numbness in any of the extremities no change in vision speech or gait. Plan per cardiology is to proceed with cardiac catheterization in a.m. tomorrow. On 03/22/2021 Patient was seen and examined on the medical floor, he is alert and oriented x 3 in no distress, he denies any complaints there is no fever or chills no headache or dizziness no chest pain no shortness of breath no palpitation no cough no nausea or vomiting no abdominal pain no diarrhea no blood in the stools no burning with urination no frequency or urgency and no hematuria, there is no weakness or numbness in any of the extremities no change in vision speech or gait. Plan per cardiology is to proceed with cardiac catheterization on . On 03/23/2021 patient alert and oriented 3 plans for cardiac catheterization tomorrow per cardiology. Patient has been transitioned to by mouth Lasix. Cardiology and pulmonary services are following. No plans for thoracentesis at this time. Patient remains on heparin drip. Patient denies chest pain. Patient denies nausea vomiting or diarrhea. Patient denies any urinary burning or frequency. On 03/24/2021 Patient was seen and examined on the medical floor, he is alert and oriented x 3 in no distress, he denies any complaints there is no fever or chills no headache or dizziness no chest pain no shortness of breath no palpitation no cough no nausea or vomiting no abdominal pain no diarrhea no blood in the stools no burning with urination no frequency or urgency and no hematuria, there is no weakness or numbness in any of the extremities no change in vision speech or gait. He underwent cardiac catheterization today that revealed no significant coronary artery disease. Objective - Vital Signs Vital signs: Vital Signs Temp 98.4 F 03/24/21 04:00 Pulse 51 L 03/24/21 10:33 Resp 17 03/24/21 04:00 BP 106/60 03/24/21 10:33 Pulse Ox 91 L 03/24/21 10:33 Intake & Output 03/23/21 03/24/21 03/24/21 18:59 06:59 18:59 Intake Total 960 892.789 Output Total 825 150 Balance 135 742.789 Weight 76.2 kg Intake: IV 100 Intake, IV Titration 232.789 Amount Heparin Sod,Pork in 0.45% 232.789 NaCl 25,000 unit In 0.45 % NaCl 1 250ml.bag @ 12 UNITS/KG/HR 9.417 mls/hr IV .Q24H [facility] Rx#: [id number] Oral 960 560 Output: Urine 825 150 Other: Voiding Method Toilet Toilet Urinal Urinal - Exam In general patient is alert and oriented x 3 in no distress HEENT head normocephalic and atraumatic Neck is supple no JVD no goiter no lymphadenopathy no carotid bruit Chest examination is clear to auscultation no crackles no wheezing Cardiac exam reveals regular heart sounds S1 and S2 no gallops no murmurs Abdomen is soft nontender no organomegaly with normal bowel sounds Extremity exam reveals no edema no cyanosis or clubbing Neurological examination reveals no gross focal deficits - Labs CBC & Chem 7: 03/25/21 09:32 03/25/21 09:32 Labs: Abnormal Lab Results - Last 24 Hours (Table) 03/23/21 03/23/21 03/24/21 Range/Units 16:55 20:26 06:02 RBC (4.30-5.90) m/uL Hgb (13.0-17.5) gm/dL Hct (39.0-53.0) % RDW (11.5-15.5) % APTT (22.0-30.0) sec Carbon Dioxide (22-30) mmol/L BUN (9-20) mg/dL Glucose (74-99) mg/dL POC Glucose (mg/dL) 185 H 191 H 135 H (75-99) mg/dL Alkaline Phosphatase (38-126) U/L Total Protein (6.3-8.2) g/dL 03/24/21 03/24/21 03/24/21 Range/Units 06:57 06:57 06:57 RBC 3.74 L (4.30-5.90) m/uL Hgb 11.1 L (13.0-17.5) gm/dL Hct 35.8 L (39.0-53.0) % RDW 22.5 H (11.5-15.5) % APTT 62.0 H (22.0-30.0) sec Carbon Dioxide 33 H (22-30) mmol/L BUN 29 H (9-20) mg/dL Glucose 134 H (74-99) mg/dL POC Glucose (mg/dL) (75-99) mg/dL Alkaline Phosphatase 344 H (38-126) U/L Total Protein 5.5 L (6.3-8.2) g/dL 03/24/21 Range/Units 11:46 RBC (4.30-5.90) m/uL Hgb (13.0-17.5) gm/dL Hct (39.0-53.0) % RDW (11.5-15.5) % APTT (22.0-30.0) sec Carbon Dioxide (22-30) mmol/L BUN (9-20) mg/dL Glucose (74-99) mg/dL POC Glucose (mg/dL) 206 H (75-99) mg/dL Alkaline Phosphatase (38-126) U/L Total Protein (6.3-8.2) g/dL Assessment and Plan Plan: 1. Shortness of breath. Cardiology and pulmonary services have been consulted. Patient started on IV Lasix. Patient has been transitioned to oral Lasix 2. Acute CHF exacerbation. 2-D echo completed showing an EF of 60-65% Patient started on IV Lasix 3. Elevated troponin. Patient started on heparin drip cardiology service is consulted 4. Recent diverticulitis. Patient completed antibiotic treatment. Symptoms resolved 5. History of diabetes mellitus type 2 6. History of essential hypertension 7. History of chronic back pain 8. History of peripheral neuropathy Cardiology and pulmonary service is consulted CT of the chest was negative for pulmonary embolism maintained on heparin drip transitioned to oral Lasix Plans for cardiac catheterization on 03/24/2021
[2021-03-25 11:47] LABS: Glucose,Whole Blood 142 mg/dL (75-99)
[2021-03-25 12:48] VITALS: BP 103/55; PULSE 65; TEMP 98
--- NOTE | 2021-03-25 17:03 | PN ---
PROGRESS NOTE PULMONARY/CRITICAL CARE PROGRESS NOTE: A 71-year-old man who was again seen in evaluation. He was seen in room 363. The patient underwent cardiac catheterization, which apparently revealed normal coronary arteries. There was minimal intimal plaque. Currently, the patient has been weaned off oxygen therapy. He is feeling rather well without complaints of chest pain, chest discomfort, palpitations, fluttering, shortness of breath, coughing, wheezing, or phlegm production. PHYSICAL EXAMINATION: VITAL SIGNS: His current vital signs include temperature 98 degrees, heart rate 65, respiratory rate 16, blood pressure 103/55, mean 71 and room air saturation 93%. GENERAL: He appears in no acute distress. HEENT: Examination is grossly unremarkable. NECK: Supple. Full range of motion. No adenopathy. Neck veins are flat. No thyromegaly. CARDIOVASCULAR: Examination reveals regular rhythm and rate. S1, S2 normal. No S3, S4, or murmur. LUNGS: Reveal mostly clear breath sounds. A few scattered rhonchi at the bases. No wheezes or crackles. ABDOMEN: Soft. Bowel sounds are heard. EXTREMITIES are intact. No cyanosis, clubbing, or edema. SKIN: Without rash. NEUROLOGIC: Examination is brief but nonfocal. LABS: Reviewed. White count 10.1, hemoglobin 11.9, hematocrit 37.1, platelet count 302,000. Sodium 136, potassium 4.8, chloride 105, CO2 24, anion gap 7. BUN 25, creatinine 0.64. A chest x-ray was done today. It shows bilateral lower lobe infiltrates and small bilateral effusions. ASSESSMENT: 1. Acute exacerbation of diastolic congestive heart failure. 2. Bilateral pleural effusions, left greater than right secondary to congestive heart failure. 3. Chronic obstructive pulmonary disease. 4. History of previous tobacco dependence. 5. Diabetes mellitus. 6. Diabetic neuropathy. 7. Gastroesophageal reflux disease. 8. Mild hearing disorder. 9. Hypertension. 10.Osteoarthritis. 11.Sleep apnea syndrome, currently maintained on CPAP. 12.History of migraine cephalgia. 13.History of diverticular disease. PLAN: Currently, the patient is doing well. He has been weaned off O2. There was some talk that he may be discharged. Additional recommendations and suggestions are forthcoming. Pleural effusions in my opinion were too small to do a thoracentesis on. He diuresed well. Additional recommendations and suggestions are forthcoming. MMODL / IJN: [id number] /
[2021-03-26] MEDS ORDERED: ATORVASTATIN 10 MG TAB PO SCH (09:00)
== END 2021-03-25 13:48 | disposition home or self-care (01) | DRG 280 ==
LOC: EC 09:55 → 3SCARD 11:59
PROVIDERS: ADMIT Internal Medicine; ATTEND Internal Medicine
PROC: B2111ZZ Fluoroscopy of Multiple Coronary Arteries using Low Osmolar Contrast (ICD-10-PCS; 2021-03-24)
PROC: 4A023N7 Measurement of Cardiac Sampling and Pressure, Left Heart, Percutaneous Approach (ICD-10-PCS; principal; 2021-03-24 09:00)
DX: I21.4 Non-ST elevation (NSTEMI) myocardial infarction (principal); I50.33 Acute on chronic diastolic (congestive) heart failure; J44.9 Chronic obstructive pulmonary disease, unspecified; E11.40 Type 2 diabetes mellitus with diabetic neuropathy, unspecified; G47.33 Obstructive sleep apnea (adult) (pediatric); Z20.822 Contact with and (suspected) exposure to COVID-19; H91.90 Unspecified hearing loss, unspecified ear; I34.1 Nonrheumatic mitral (valve) prolapse; I11.0 Hypertensive heart disease with heart failure; G89.29 Other chronic pain; M54.5 Low back pain; I34.0 Nonrheumatic mitral (valve) insufficiency; K21.9 Gastro-esophageal reflux disease without esophagitis; K57.90 Diverticulosis of intestine, part unspecified, without perforation or abscess without bleeding; M19.90 Unspecified osteoarthritis, unspecified site; Z79.899 Other long term (current) drug therapy; Z85.3 Personal history of malignant neoplasm of breast; Z87.442 Personal history of urinary calculi; Z87.891 Personal history of nicotine dependence; Z96.652 Presence of left artificial knee joint; Z97.4 Presence of external hearing-aid; G62.9 Polyneuropathy, unspecified; N42.9 Disorder of prostate, unspecified; G43.109 Migraine with aura, not intractable, without status migrainosus
CPT/HCPCS: 36415; 71046; 71275; 76604; 80048; 80053; 80061; 81003; 83036; 83605; 83735; 83880; 84484; 85025; 85379; 85610; 85730; 87635; 93005; 93306; 93454; 94640; 96374; 96375; 96376; 99285

== ENCOUNTER 2021-07-04 15:17 | Inpatient (IN) | payer MEDICARE ==
[2021-07-04] MEDS ORDERED: ASPIRIN 81 MG PO STA (16:02)
[2021-07-04] MEDS ORDERED: FUROSEMIDE 10 MG/ML 4 ML VIAL IV STA (16:03)
[2021-07-04 16:20] LABS: Anisocytosis Moderate; Appearance,Urine Clear (Clear); Basophils # (A) 0.1 k/uL (0-0.2); Basophils % (A) 1 %; Bilirubin,Urine Negative (Negative); Blood,Urine Negative (Negative); Color,Urine Yellow; Eosinophils # (A) 0.1 k/uL (0-0.7); Eosinophils % (A) 1 %; Glucose,Urine (UA) Negative (Negative); HCT 35.1 % (39.0-53.0); HGB 11.3 gm/dL (13.0-17.5); Hypochromasia Moderate; Ketones,Urine Negative (Negative); Leukocyte Esterase,Urine Trace (Negative); Lymphocytes # (A) 2.5 k/uL (1.0-4.8); Lymphocytes % (A) 20 %; MCH 27.9 pg (25.0-35.0); MCHC 32.1 g/dL (31.0-37.0); Microcytosis Slight; Monocytes # (A) 1.1 k/uL (0-1.0); Monocytes % (A) 8 %; Mucus,Urine Rare /hpf; Neutrophils # (A) 8.7 k/uL (1.3-7.7); Neutrophils % (A) 67 %; Nitrite,Urine Negative (Negative); PH, Urine 5.5 (5.0-8.0); Platelet Count 334 k/uL (150-450); Poikilocytosis Moderate; Protein,Urine Negative (Negative); RBC 4.04 m/uL (4.30-5.90); RBC,Urine <1 /hpf (0-5); RDW 20.9 % (11.5-15.5); Specific Gravity,Urine 1.015 (1.001-1.035); Urobilinogen,Urine <2.0 mg/dL (<2.0); WBC 12.9 k/uL (3.8-10.6); WBC,Urine 1 /hpf (0-5)
[2021-07-04 16:29] LABS: INR 1.3 (<1.2); Partial Thromboplastin Time 22.8 sec (22.0-30.0); Prothrombin Time 13.6 sec (9.0-12.0)
[2021-07-04 16:33] LABS: ALT 25 U/L (4-49); AST 34 U/L (17-59); African American GFR (CKD) >90 (>60 ml/min/1.73 sqM); Albumin 3.8 g/dL (3.5-5.0); Alkaline Phosphatase 264 U/L (38-126); Anion Gap 9 mmol/L; Blood Urea Nitrogen 22 mg/dL (9-20); Calcium 9.4 mg/dL (8.4-10.2); Carbon Dioxide 25 mmol/L (22-30); Chloride 103 mmol/L (98-107); Glucose 99 mg/dL (74-99); Magnesium 1.5 mg/dL (1.6-2.3); Non-African American GFR(CKD) >90 (>60 ml/min/1.73 sqM); Potassium 4.1 mmol/L (3.5-5.1); Sodium 137 mmol/L (137-145); Total Bilirubin 0.9 mg/dL (0.2-1.3)
--- NOTE | 2021-07-04 16:41 | ED ---
General Adult HPI - General Chief complaint: Chest Pain Stated complaint: Chest Pain Time Seen by Provider: 07/04/21 15:39 Source: patient, EMS, RN notes reviewed, old records reviewed Mode of arrival: EMS - History of Present Illness Initial comments: Patient is a 71-year-old male with past medical history remarkable for CHF, COPD, diabetes, hypertension, prior cancer presents emergency Department complaining of a worsening shortness of breath for the last 2 weeks. Lorena murphy the patient was placed in a room. Patient describes a worsening exertional dyspnea for the last 2 weeks. Over this time is also noticed lower extremity edema bilaterally as well as abdominal swelling. Also states that for the last 2 days he is feeling a chest "pressure" sensation located over the upper sternum. It does not radiate. It has been more or less constant and is worse with exertion when he becomes short of breath. He denies any fevers, chills, cough, sick contacts. Denies any abdominal pain, nausea, vomiting. Denies any change in bowel habits. Denies any lightheadedness, weakness, numbness. He is intermittently on nausea at home. Was recently admitted last month for a heart failure exacerbation similar to this one. His no other acute complaints at this time. He does endorse mildly worsening orthopnea but denies any worsening proximal nocturnal dyspnea. - Related Data Home Medications Medication Instructions Recorded Confirmed Temazepam [Restoril] 30 mg PO HS 03/05/15 07/04/21 Citalopram Hydrobromide [CeleXA] 40 mg PO DAILY 02/05/16 07/04/21 Levocetirizine Dihydrochloride 5 mg PO HS 07/13/16 07/04/21 [Xyzal] Tamsulosin [Flomax] 0.4 mg PO HS 07/13/16 07/04/21 metFORMIN HCL [Glucophage XR] 500 mg PO BID 11/27/16 07/04/21 Fluticasone Nasal [place] [Flonase 2 spr EA NOSTRIL BID 03/26/18 07/04/21 Nasal [place]] Loratadine-Pseudoeph 10-240 mg 1 tab PO DAILY PRN 08/14/19 07/04/21 [Claritin-D 24 Hour] Dicyclomine [Bentyl] 20 mg PO QID PRN 07/21/20 07/04/21 Diclofenac Sodium Gel [Voltaren 4 gm TOPICAL TID PRN 01/06/21 07/04/21 Gel] Gabapentin 600 mg PO Q8H PRN 03/20/21 07/04/21 Omeprazole 40 mg PO BID 03/20/21 07/04/21 ALPRAZolam [Xanax] 0.25 mg PO DIRECTED PRN 07/04/21 07/04/21 Insulin Glargine,Hum.rec.anlog 1 dose SQ DIRECTED PRN 07/04/21 07/04/21 [Toujeo Solostar] Methimazole [Tapazole] 5 mg PO DAILY 07/04/21 07/04/21 Previous Rx's Medication Instructions Recorded Atorvastatin [Lipitor] 10 mg PO DAILY 30 Days #30 tab 03/25/21 Furosemide [Lasix] 40 mg PO DAILY 30 Days #30 tab 03/25/21 Allergies Allergy/AdvReac Type Severity Reaction Status Date / Time cephalexin monohydrate Allergy Rash/Hives Verified 07/04/21 17:08 [From Keflex] clarithromycin [From Biaxin] Allergy Unknown Verified 07/04/21 17:08 gentamicin [Gentamicin] Allergy Unknown Verified 07/04/21 17:08 naproxen Allergy Unknown Verified 07/04/21 17:08 Penicillins Allergy Anaphylaxis Verified 07/04/21 17:08 Sulfa (Sulfonamide Allergy Rash/Hives Verified 07/04/21 17:08 Antibiotics) promethazine AdvReac Nausea & Verified 07/04/21 17:08 Vomiting Review of Systems ROS Statement: Those systems with pertinent positive or pertinent negative responses have been documented in the HPI. Review of Systems: CONST: [Denies fever] EYES: [Denies blurry vision] ENT: [Denies nasal congestion] C/V: Endorses chest pain RESP: Endorses shortness of breath GI: [Denies abdominal pain] : [Denies dysuria] SKIN: [Denies rash.] MSK: [Denies joint pain.] NEURO: [Denies headache] ROS Other: All systems not noted in ROS Statement are negative. Past Medical History Past Medical History: Cancer, COPD, Diabetes Mellitus, GERD/Reflux, Hearing Disorder / Deafness, Hypertension, Osteoarthritis (OA), Prostate Disorder, Sleep Apnea/CPAP/BIPAP Additional Past Medical History / Comment(s): Optic migraines, diverticulosis, kidney stones, neuropathy hands & feet, low BACK PAIN. 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 CPAP use, bilateral hearing aid use, wears brace on bilateral legs. History of Any Multi-Drug Resistant Organisms: None Reported Date of last positivie culture/infection: none MDRO Source:: none Past Surgical History: Back Surgery, Breast Surgery, Hernia Repair, Joint Replacement Additional Past Surgical History / Comment(s): EGD . Laparoscopic Mireya Fundoplasty, CYSTOSCOPY AND LITHOTRIPSY LEfT URETERAL STENT-SINCE REMOVED. RIGHT BREAST BIOPSY, TOTAL LEFT KNEE REPLACEMENT, LEFT FOOT SURGERY, BILATERAL INGUINAL HERNIA REPAIR, PERCUTANEOUS NEPHROLITHOTOMY, BILATERAL hand surgery, back procedure for nerve endings and cortisone injections, ESOPHGEAL DILATION, eye surgery to remove tumors, LUMPECTOMY RIGHT BREAST. Past Anesthesia/Blood Transfusion Reactions: No Reported Reaction Additional Past Anesthesia/Blood Transfusion Reaction / Comment(s): NEVER HAD ANY BLOOD TRANSFUSIONS. Past Psychological History: No Psychological Hx Reported Smoking Status: Former smoker - Past Family History Father Family Medical History: Cancer Mother Family Medical History: No Reported History Additional Family Medical History / Comment(s): . General Exam - General Exam Comments Initial Comments: General: Appears in no acute distress. HEAD: Normal with no signs of head trauma. EYES: PERRLA, EOMI, conjunctiva normal, no discharge. ENT: Hearing grossly intact, normal oropharynx. RESPIRATORY: Mild crackles in bilateral lung bases without any increased work of breathing. No rhonchi. No wheezing. C/V: Regular rate and rhythm. S1 and S2 auscultated. Peripheral pulses are 2+ intact throughout. Patient is 1+ pitting edema up to the level of the bilateral knees which is atypical for him. ABD: Soft, nontender. He is mildly distended beyond his baseline per patient. No guarding. No peritoneal signs. No rebound tenderness. EXT: Normal range of motion, no obvious deformity SKIN: No rashes or lesions observed on exposed skin. NEURO: Alert and oriented 4. Course Vital Signs 07/04/21 07/04/21 15:26 17:18 Temperature 98.0 F Pulse Rate 82 86 Respiratory 18 18 Rate Blood Pressure 115/78 116/73 O2 Sat by Pulse 99 95 Oximetry Medical Decision Making - Medical Decision Making Based on the patient's presentation and physical exam, I'm concerned for cardiac etiology for his current symptoms, likely a heart failure exacerbation. We will obtain cardiac labs including troponin, EKG, chest x-ray. Patient will be given an aspirin, as well as Lasix while here in the department. Patient was in agreement with this plan. He'll be connected to continuous cardiac monitoring throughout his stay. Patient's EKG revealed a right bundle branch block but otherwise no acute changes or signs of ischemia.Chest x-ray was remarkable for bilateral pulmonary edema likely secondary to an acute CHF exacerbation. Patient has a slight leukocytosis of 12.9 which is likely reactive. Patient has a normocytic anemia with a hemoglobin of 11.3. Initial troponin is mildly elevated to 0.147 which is slightly above his baseline. Repeats are pending. Patient is mildly hypomagnesemic and 1.5 which is replenished. Renal function is within normal limits. Urinalysis is unremarkable. BNP is elevated to 8000. Covid swab is negative. On reevaluation, I expect the patient that is likely expressing acute heart failure exacerbation. Also due to his elevated troponin in the setting of no acute EKG changes, the patient also may be expressing acute and STEMI. Therefore we will heparinize the patient as well as continued diuresis. Patient was in agreement this plan. He will be admitted to the hospital to telemetry bed. I spoke with cardiology over the phone Dr. Hidalgo was in agreement with this plan. I spoke with the admitting team under Dr. Villa who accepted the patient. Patient was therefore admitted in serious condition to a telemetry bed. - Lab Data Result diagrams: 07/04/21 16:02 07/04/21 16:02 Lab Results 07/04/21 07/04/21 07/04/21 Range/Units 16:02 16:02 16:02 WBC 12.9 H (3.8-10.6) k/uL RBC 4.04 L (4.30-5.90) m/uL Hgb 11.3 L (13.0-17.5) gm/dL Hct 35.1 L (39.0-53.0) % MCV 87.0 (80.0-100.0) fL MCH 27.9 (25.0-35.0) pg MCHC 32.1 (31.0-37.0) g/dL RDW 20.9 H (11.5-15.5) % Plt Count 334 (150-450) k/uL MPV 9.0 Neutrophils % 67 % Lymphocytes % 20 % Monocytes % 8 % Eosinophils % 1 % Basophils % 1 % Neutrophils # 8.7 H (1.3-7.7) k/uL Lymphocytes # 2.5 (1.0-4.8) k/uL Monocytes # 1.1 H (0-1.0) k/uL Eosinophils # 0.1 (0-0.7) k/uL Basophils # 0.1 (0-0.2) k/uL Hypochromasia Moderate Poikilocytosis Moderate Anisocytosis Moderate Microcytosis Slight PT 13.6 H (9.0-12.0) sec INR 1.3 H (<1.2) APTT 22.8 (22.0-30.0) sec Sodium (137-145) mmol/L Potassium (3.5-5.1) mmol/L Chloride (98-107) mmol/L Carbon Dioxide (22-30) mmol/L Anion Gap mmol/L BUN (9-20) mg/dL Creatinine (0.66-1.25) mg/dL Est GFR (CKD-EPI)AfAm (>60 ml/min/1.73 sqM) Est GFR (CKD-EPI)NonAf (>60 ml/min/1.73 sqM) Glucose (74-99) mg/dL Calcium (8.4-10.2) mg/dL Magnesium (1.6-2.3) mg/dL Total Bilirubin (0.2-1.3) mg/dL AST (17-59) U/L ALT (4-49) U/L Alkaline Phosphatase (38-126) U/L Troponin I (0.000-0.034) ng/mL NT-Pro-B Natriuret Pep pg/mL Total Protein (6.3-8.2) g/dL Albumin (3.5-5.0) g/dL Urine Color Yellow Urine Appearance Clear (Clear) Urine pH 5.5 (5.0-8.0) Ur Specific [place] 1.015 (1.001-1.035) Urine Protein Negative (Negative) Urine Glucose (UA) Negative (Negative) Urine Ketones Negative (Negative) Urine Blood Negative (Negative) Urine Nitrite Negative (Negative) Urine Bilirubin Negative (Negative) Urine Urobilinogen <2.0 (<2.0) mg/dL Ur Leukocyte Esterase Trace H (Negative) Urine RBC <1 (0-5) /hpf Urine WBC 1 (0-5) /hpf Urine Mucus Rare H (None) /hpf 07/04/21 07/04/21 07/04/21 Range/Units 16:02 16:02 16:02 WBC (3.8-10.6) k/uL RBC (4.30-5.90) m/uL Hgb (13.0-17.5) gm/dL Hct (39.0-53.0) % MCV (80.0-100.0) fL MCH (25.0-35.0) pg MCHC (31.0-37.0) g/dL RDW (11.5-15.5) % Plt Count (150-450) k/uL MPV Neutrophils % % Lymphocytes % % Monocytes % % Eosinophils % % Basophils % % Neutrophils # (1.3-7.7) k/uL Lymphocytes # (1.0-4.8) k/uL Monocytes # (0-1.0) k/uL Eosinophils # (0-0.7) k/uL Basophils # (0-0.2) k/uL Hypochromasia Poikilocytosis Anisocytosis Microcytosis PT (9.0-12.0) sec INR (<1.2) APTT (22.0-30.0) sec Sodium 137 (137-145) mmol/L Potassium 4.1 (3.5-5.1) mmol/L Chloride 103 (98-107) mmol/L Carbon Dioxide 25 (22-30) mmol/L Anion Gap 9 mmol/L BUN 22 H (9-20) mg/dL Creatinine 0.68 (0.66-1.25) mg/dL Est GFR (CKD-EPI)AfAm >90 (>60 ml/min/1.73 sqM) Est GFR (CKD-EPI)NonAf >90 (>60 ml/min/1.73 sqM) Glucose 99 (74-99) mg/dL Calcium 9.4 (8.4-10.2) mg/dL Magnesium 1.5 L (1.6-2.3) mg/dL Total Bilirubin 0.9 (0.2-1.3) mg/dL AST 34 (17-59) U/L ALT 25 (4-49) U/L Alkaline Phosphatase 264 H (38-126) U/L Troponin I 0.147 H* (0.000-0.034) ng/mL NT-Pro-B Natriuret Pep 8330 pg/mL Total Protein 6.0 L (6.3-8.2) g/dL Albumin 3.8 (3.5-5.0) g/dL Urine Color Urine Appearance (Clear) Urine pH (5.0-8.0) Ur Specific [place] (1.001-1.035) Urine Protein (Negative) Urine Glucose (UA) (Negative) Urine Ketones (Negative) Urine Blood (Negative) Urine Nitrite (Negative) Urine Bilirubin (Negative) Urine Urobilinogen (<2.0) mg/dL Ur Leukocyte Esterase (Negative) Urine RBC (0-5) /hpf Urine WBC (0-5) /hpf Urine Mucus (None) /hpf - EKG Data -: EKG Interpreted by Me EKG Comments: 12-lead Electrocardiogram Interpretation Note EKG was reviewed and interpreted by myself. 12-lead ECG performed at 1544 is interpreted by me as revealing normal sinus rhythm at a rate of 85 beats per minute. Right axis deviation. WI interval is 160 ms, QRS durations 166 ms, QTc is 552 ms.. There were no ST or T wave abnormalities to suggest myocardial ischemia or injury. Patient is a right bundle branch block.. By my interpretation this EKG is non-diagnostic for acute ischemia. No acute changes when compared to prior EKGs. Disposition Clinical Impression: NSTEMI (non-ST elevated myocardial infarction), Acute exacerbation of congestive heart failure, Elevated troponin, Chest pain Disposition: ADMITTED IP TO THIS HOSP Condition: Serious
--- NOTE | 2021-07-04 17:03 | XR ---
EXAMINATION TYPE: XR chest 2V DATE OF EXAM: 07/04/2021 COMPARISON: 03/25/2021 TECHNIQUE: PA and lateral views submitted. HISTORY: Chest pain FINDINGS: The lungs are clear and there is no pneumothorax, pleural effusion, or focal pneumonia. Nodule seen at the right lung base with bibasilar infiltrate and small effusion. Underlying COPD. Arthropathy of the shoulders. Biapical pleural thickening. Diffuse osteopenia. IMPRESSION: 1. Bilateral lower lobe infiltrate and small effusion. Could not exclude a pulmonary nodule or nipple shadow at the right lung base. 2. COPD..
[2021-07-04] MEDS ORDERED: HEPARIN SODIUM 1,000 UN/ML (10ML VL) IV ONE (17:13)
[2021-07-04] MEDS ORDERED: HEPARIN SODIUM 1,000 UN/ML (10ML VL) IV PRN (17:13)
[2021-07-04] MEDS ORDERED: HEPARIN SOD,PORK IN 0.45% NACL 25,000 UNIT in 0.45% NACL 1 250ML.BAG IV SCH (17:15)
[2021-07-04] MEDS ORDERED: NALOXONE 0.4 MG/ML 1 ML VIAL IV PRN (18:07)
[2021-07-04] MEDS: MORPHINE SULFATE 4 MG/ML SYRINGE IV PRN ×2 (18:30→23:03)
[2021-07-04 18:34] LABS: Glucose,Whole Blood 156 mg/dL (75-99)
[2021-07-04] MEDS ORDERED: MAGNESIUM SULFATE-D5W PMX 1 GM in DEXTROSE/WATER 1 100ML.BAG IVPB ONE (19:26)
[2021-07-04] MEDS ORDERED: ALPRAZolam 0.25 MG TAB PO PRN (19:37)
[2021-07-04] MEDS ORDERED: DICYCLOMINE 20 MG TAB PO PRN (19:37)
[2021-07-04] MEDS: GABAPENTIN 300 MG CAP PO PRN (20:09)
[2021-07-04] MEDS ORDERED: TEMAZEPAM 30 MG CAP PO SCH (21:00)
[2021-07-04] MEDS: PANTOPRAZOLE 40 MG TABLET PO SCH (21:49)
[2021-07-04] MEDS: LORATADINE 10 MG TAB PO SCH (21:50)
[2021-07-04] MEDS: metFORMIN 500 MG TAB PO SCH (21:50)
[2021-07-04] MEDS: TAMSULOSIN 0.4 MG CAP.ER.24H PO SCH (21:50)
[2021-07-04] MEDS ORDERED: TEMAZEPAM 15 MG CAP PO SCH (21:51)
[2021-07-04] MEDS: FLUTICASONE 50MCG/SPRAY NASAL 16GM EA NOSTRIL SCH (21:59)
[2021-07-04] MEDS: TEMAZEPAM 15 MG CAP PO SCH (22:02)
[2021-07-04] MEDS: FUROSEMIDE 10 MG/ML 4 ML VIAL IV SCH (23:03)
[2021-07-05] MEDS: MORPHINE SULFATE 4 MG/ML SYRINGE IV PRN ×4 (03:29→22:02)
[2021-07-05 06:04] LABS: Glucose,Whole Blood 145 mg/dL (75-99)
[2021-07-05] MEDS: metFORMIN 500 MG TAB PO SCH (06:13)
[2021-07-05] MEDS: PANTOPRAZOLE 40 MG TABLET PO SCH ×2 (06:13→15:09)
[2021-07-05 08:42] LABS: INR 1.4 (<1.2); Partial Thromboplastin Time 59.5 sec (22.0-30.0); Prothrombin Time 13.9 sec (9.0-12.0)
[2021-07-05] MEDS: ATORVASTATIN 10 MG TAB PO SCH (09:03)
[2021-07-05] MEDS: methIMAzole 5 MG TAB PO SCH (09:03)
[2021-07-05] MEDS: FUROSEMIDE 10 MG/ML 4 ML VIAL IV SCH ×2 (09:03→15:09)
[2021-07-05] MEDS: CITALOPRAM HYDROBROMIDE 20 MG TAB PO SCH (09:03)
[2021-07-05 09:27] LABS: ALT 23 U/L (4-49); AST 32 U/L (17-59); African American GFR (CKD) >90 (>60 ml/min/1.73 sqM); Albumin 3.6 g/dL (3.5-5.0); Alkaline Phosphatase 212 U/L (38-126); Anion Gap 10 mmol/L; Blood Urea Nitrogen 25 mg/dL (9-20); Calcium 9.4 mg/dL (8.4-10.2); Carbon Dioxide 28 mmol/L (22-30); Chloride 102 mmol/L (98-107); Glucose 145 mg/dL (74-99); Magnesium 1.7 mg/dL (1.6-2.3); Non-African American GFR(CKD) 88 (>60 ml/min/1.73 sqM); Potassium 4.3 mmol/L (3.5-5.1); Sodium 140 mmol/L (137-145); Total Bilirubin 0.7 mg/dL (0.2-1.3)
[2021-07-05] MEDS: GABAPENTIN 300 MG CAP PO PRN ×2 (09:38→19:54)
[2021-07-05 09:41] LABS: Anisocytosis Moderate; Basophils # (A) 0.1 k/uL (0-0.2); Basophils % (A) 1 %; Eosinophils # (A) 0.2 k/uL (0-0.7); Eosinophils % (A) 2 %; HCT 36.2 % (39.0-53.0); HGB 11.4 gm/dL (13.0-17.5); Hypochromasia Moderate; Lymphocytes # (A) 2.7 k/uL (1.0-4.8); Lymphocytes % (A) 24 %; MCH 28.2 pg (25.0-35.0); MCHC 31.6 g/dL (31.0-37.0); MCV 89.2 fL (80.0-100.0); Mean Platelet Volume 9.7; Microcytosis Slight; Monocytes # (A) 1.1 k/uL (0-1.0); Monocytes % (A) 10 %; Neutrophils # (A) 7.2 k/uL (1.3-7.7); Neutrophils % (A) 62 %; Platelet Count 306 k/uL (150-450); Poikilocytosis Slight; RBC 4.06 m/uL (4.30-5.90); RDW 20.7 % (11.5-15.5); WBC 11.6 k/uL (3.8-10.6)
[2021-07-05] MEDS: FLUTICASONE 50MCG/SPRAY NASAL 16GM EA NOSTRIL SCH ×2 (10:24→19:55)
--- NOTE | 2021-07-05 10:47 | P.CRDCN ---
History of Present Illness Consult date: 07/05/21 History of present illness: HISTORY OF PRESENT ILLNESS: This is a 71-year-old male with a past medical history significant for diabetes, hypertension, hyperlipidemia, and congestive heart failure. Patient follows in the office with Dr. Brito. We have been asked to see the patient in consultation for non-STEMI, heart failure. Patient examined at the bedside. Patient reports he has been feeling short of breath for the past 2 weeks. He a lso reports increased lower extremity edema. The patient states he has been having chest pressure for the last 2 days that is intermittent and is mostly with exertion. The patient came to the emergency room for further evaluation. The patient was found to be in congestive heart failure and he was started on IV Lasix. The patient reports improvement in his shortness of breath and his lower extremity edema this morning. She currently denies chest pain or pressure. EKG reveals his mechanism with right bundle branch block. Chest xray bilateral lower lobe infiltrate and small effusion. Could not exclude a pulmonary nodule or nipple shadow at the right lung base. COPD.. Laboratory data: WBC 11.6. Hemoglobin 11.4. Platelet count 306. INR 1.4. Sodium 140. Potassium 4.3. BUN 25. Creatinine 0.84. Troponin 0.147. 0.155. 0.154. ProBNP 8330. Current home cardiac medications include Lipitor 10 mg daily, Lasix 40 mg daily Most recent echocardiogram obtained in February 2021 revealed ejection fraction 60- 65%, mild mitral regurgitation, mild tricuspid regurgitation, and small pleural effusion Cardiac catheterization history: March 2021 revealing normal coronary arteries with minimal and small plaque. Maximum medical therapy was recommended. REVIEW OF SYSTEMS: At the time of my exam: CONSTITUTIONAL: Denies fever or chills. HEENT: Denies blurred vision, vision changes, or eye pain. Denies hemoptysis CARDIOVASCULAR: Denies chest pain. Denies orthopnea. Denies PND. Denies palpitations RESPIRATORY: Denies shortness of breath. GASTROINTESTINAL: Denies abdominal pain. Denies nausea or vomiting. HEMATOLOGIC: Denies bleeding disorders. GENITOURINARY: Denies any blood in urine. SKIN: Denies pruitis. Denies rash. PHYSICAL EXAM: VITAL SIGNS: Reviewed. GENERAL: Well-developed in no acute distress. HEENT: Head is normocephalic. Pupils are equal, round. Sclerae anicteric. Mucous membranes of the mouth are moist. Neck supple. No JVD or thyromegaly LUNGS: Respirations even and unlabored. Lungs diminished bilaterally with bibasilar rales. HEART: Regular rate and rhythm. S1 and S2 heard. ABDOMEN: Soft. Nondistended. Nontender. EXTREMITIES: Normal range of motion. No clubbing or cyanosis. Peripheral pulses intact. 2+ bilateral lower extremity edema NEUROLOGIC: Awake and alert. Oriented x 3. ASSESSMENT: Acute exacerbation of chronic diastolic congestive heart failure, EF 60-65% Abnormal troponins, secondary to CHF, not indicative of acute coronary syndrome Hypertension Hyperlipidemia Diabetes PLAN: Obtain 2-D echo to assess cardiac structure and function Discontinue IV heparin. Begin subcu heparin Continue IV Lasix 40 mg every 8 hours Monitor kidney function Daily weight Accurate I and O Resume home cardiac medications Further recommendations pending patient's course Nurse practitioner note has been reviewed by physician. Signing provider agrees with the documented findings, assessment, and plan of care. Past Medical History Past Medical History: Cancer, COPD, Diabetes Mellitus, GERD/Reflux, Hearing Disorder / Deafness, Hypertension, Osteoarthritis (OA), Prostate Disorder, Sleep Apnea/CPAP/BIPAP Additional Past Medical History / Comment(s): Optic migraines, diverticulosis, kidney stones, neuropathy hands & feet, low BACK PAIN. 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 CPAP use, bilateral hearing aid use, wears brace on bilateral legs. History of Any Multi-Drug Resistant Organisms: None Reported Date of last positivie culture/infection: none MDRO Source:: none Past Surgical History: Back Surgery, Breast Surgery, Hernia Repair, Joint Replacement Additional Past Surgical History / Comment(s): EGD . Laparoscopic Mireya Fundoplasty, CYSTOSCOPY AND LITHOTRIPSY LEfT URETERAL STENT-SINCE REMOVED. RIGHT BREAST BIOPSY, TOTAL LEFT KNEE REPLACEMENT, LEFT FOOT SURGERY, BILATERAL INGUINAL HERNIA REPAIR, PERCUTANEOUS NEPHROLITHOTOMY, BILATERAL hand surgery, back procedure for nerve endings and cortisone injections, ESOPHGEAL DILATION, eye surgery to remove tumors, LUMPECTOMY RIGHT BREAST. Past Anesthesia/Blood Transfusion Reactions: No Reported Reaction Additional Past Anesthesia/Blood Transfusion Reaction / Comment(s): NEVER HAD ANY BLOOD TRANSFUSIONS. Past Psychological History: No Psychological Hx Reported Smoking Status: Former smoker - Past Family History Father Family Medical History: Cancer Mother Family Medical History: No Reported History Additional Family Medical History / Comment(s): . Medications and Allergies Home Medications Medication Instructions Recorded Confirmed Type Temazepam [Restoril] 30 mg PO HS 03/05/15 07/04/21 History Citalopram Hydrobromide [CeleXA] 40 mg PO DAILY 02/05/16 07/04/21 History Levocetirizine Dihydrochloride 5 mg PO HS 07/13/16 07/04/21 History [Xyzal] Tamsulosin [Flomax] 0.4 mg PO HS 07/13/16 07/04/21 History metFORMIN HCL [Glucophage XR] 500 mg PO BID 11/27/16 07/04/21 History Fluticasone Nasal [place] [Flonase 2 spr EA NOSTRIL BID 03/26/18 07/04/21 History Nasal [place]] Loratadine-Pseudoeph 10-240 mg 1 tab PO DAILY PRN 08/14/19 07/04/21 History [Claritin-D 24 Hour] Dicyclomine [Bentyl] 20 mg PO QID PRN 07/21/20 07/04/21 History Diclofenac Sodium Gel [Voltaren 4 gm TOPICAL TID PRN 01/06/21 07/04/21 History Gel] Gabapentin 600 mg PO Q8H PRN 03/20/21 07/04/21 History Omeprazole 40 mg PO BID 03/20/21 07/04/21 History Atorvastatin [Lipitor] 10 mg PO DAILY 30 Days #30 tab 03/25/21 07/04/21 Rx Furosemide [Lasix] 40 mg PO DAILY 30 Days #30 tab 03/25/21 07/04/21 Rx Methimazole [Tapazole] 5 mg PO DAILY 07/04/21 07/04/21 History Allergies Allergy/AdvReac Type Severity Reaction Status Date / Time cephalexin monohydrate Allergy Rash/Hives Verified 07/04/21 17:08 [From Keflex] clarithromycin [From Biaxin] Allergy Unknown Verified 07/04/21 17:08 gentamicin [Gentamicin] Allergy Unknown Verified 07/04/21 17:08 naproxen Allergy Unknown Verified 07/04/21 17:08 Penicillins Allergy Anaphylaxis Verified 07/04/21 17:08 Sulfa (Sulfonamide Allergy Rash/Hives Verified 07/04/21 17:08 Antibiotics) promethazine AdvReac Nausea & Verified 07/04/21 17:08 Vomiting Physical Exam Vitals: Vital Signs Temp Pulse Pulse Resp BP BP Pulse Ox 07/05/21 03:18 97.6 F 90 16 101/66 96 07/05/21 02:00 83 16 07/04/21 23:14 97.8 F 83 16 100/61 95 07/04/21 20:44 98 F 88 18 107/70 95 07/04/21 17:18 86 18 116/73 95 07/04/21 15:26 98.0 F 82 18 115/78 99 Intake and Output 07/04/21 07/05/21 07/05/21 22:59 06:59 14:59 Intake Total 67.28 Output Total 1100 Balance -1032.72 Intake: Intake, IV Titration 67.28 Amount Heparin Sod,Pork in 0.45% 67.28 NaCl 25,000 unit In 0.45 % NaCl 1 250ml.bag @ 12 UNITS/KG/HR 9.798 mls/hr IV .Q24H [facility] Rx#: [id number] Output: Urine 1100 Other: Voiding Method Urinal Weight 81.647 kg 74.8 kg Results 07/05/21 07:29 07/05/21 07:29 Cardiac Enzymes 07/04/21 07/04/21 07/04/21 Range/Units 16:02 16:02 21:40 AST 34 (17-59) U/L Troponin I 0.147 H* 0.155 H* (0.000-0.034) ng/mL 07/05/21 Range/Units 00:26 AST (17-59) U/L Troponin I 0.154 H* (0.000-0.034) ng/mL Coagulation 07/04/21 07/05/21 Range/Units 16:02 00:26 PT 13.6 H (9.0-12.0) sec APTT 22.8 78.5 H (22.0-30.0) sec CBC 07/04/21 Range/Units 16:02 WBC 12.9 H (3.8-10.6) k/uL RBC 4.04 L (4.30-5.90) m/uL Hgb 11.3 L (13.0-17.5) gm/dL Hct 35.1 L (39.0-53.0) % Plt Count 334 (150-450) k/uL Comprehensive Metabolic Panel 07/04/21 Range/Units 16:02 Sodium 137 (137-145) mmol/L Potassium 4.1 (3.5-5.1) mmol/L Chloride 103 (98-107) mmol/L Carbon Dioxide 25 (22-30) mmol/L BUN 22 H (9-20) mg/dL Creatinine 0.68 (0.66-1.25) mg/dL Glucose 99 (74-99) mg/dL Calcium 9.4 (8.4-10.2) mg/dL AST 34 (17-59) U/L ALT 25 (4-49) U/L Alkaline Phosphatase 264 H (38-126) U/L Total Protein 6.0 L (6.3-8.2) g/dL Albumin 3.8 (3.5-5.0) g/dL Current Medications Generic Name Dose Route Start Last Admin Trade Name Freq PRN Reason Stop Dose Admin Atorvastatin Calcium 10 mg 07/05/21 09:00 Atorvastatin 10 Mg Tab PO DAILY NILS Citalopram Hydrobromide 40 mg 07/05/21 09:00 Citalopram Hydrobromide 20 Mg Tab PO DAILY NILS Dicyclomine HCl 20 mg 07/04/21 19:37 Dicyclomine 20 Mg Tab PO QID PRN GI Upset Fluticasone Propionate 2 spray 07/04/21 21:00 07/04/21 21:59 Fluticasone 50mcg/[place] Nasal 16gm EA NOSTRIL 2 spray BID NILS Administration Furosemide 40 mg 07/05/21 00:00 07/04/21 23:03 Furosemide 10 Mg/Ml 4 Ml Vial IV 40 mg Q8HR NILS Administration Gabapentin 600 mg 07/04/21 19:37 07/04/21 20:09 Gabapentin 300 Mg Cap PO 600 mg Q8H PRN Administration Pain Heparin Sodium (Porcine) 0 unit 07/04/21 17:13 Heparin Sodium 1,000 Un/Ml (10ml Vl) IV PER PROTOCOL PRN Low PTT Protocol Heparin Sodium/Sodium Chloride 250 mls @ 9.798 mls/hr 07/04/21 17:15 07/05/21 01:20 25,000 unit/ Sodium Chloride IV 10 units/kg/hr .Q24H NILS 8.165 mls/hr Titration Protocol 12 UNITS/KG/HR Loratadine 10 mg 07/04/21 21:00 07/04/21 21:50 Loratadine 10 Mg Tab PO 10 mg HS NILS Administration Metformin HCl 500 mg 07/04/21 21:00 07/05/21 06:13 Metformin 500 Mg Tab PO 500 mg AC-BID NILS Administration Methimazole 5 mg 07/05/21 09:00 Methimazole 5 Mg Tab PO DAILY NILS Morphine Sulfate 4 mg 07/04/21 18:07 07/05/21 03:29 Morphine Sulfate 4 Mg/Ml Syringe IV 4 mg Q4HR PRN Administration Severe Pain Naloxone HCl 0.2 mg 07/04/21 18:07 Naloxone 0.4 Mg/Ml 1 Ml Vial IV Q2M PRN Opioid Reversal Pantoprazole Sodium 40 mg 07/04/21 21:00 07/05/21 06:13 Pantoprazole 40 Mg Tablet PO 40 mg AC-BID NILS Administration Tamsulosin HCl 0.4 mg 07/04/21 21:00 07/04/21 21:50 Tamsulosin 0.4 Mg Cap.Er.24h PO 0.4 mg HS NILS Administration Temazepam 30 mg 07/04/21 22:00 07/04/21 22:02 Temazepam 15 Mg Cap PO 30 mg HS NILS Administration Intake and Output 07/04/21 07/05/21 07/05/21 22:59 06:59 14:59 Intake Total 67.28 Output Total 1100 Balance -1032.72 Intake: Intake, IV Titration 67.28 Amount Heparin Sod,Pork in 0.45% 67.28 NaCl 25,000 unit In 0.45 % NaCl 1 250ml.bag @ 12 UNITS/KG/HR 9.798 mls/hr IV .Q24H NILS Rx#: [id number] Output: Urine 1100 Other: Voiding Method Urinal Weight 81.647 kg 74.8 kg 07/04/21 16:02 07/04/21 16:02
--- NOTE | 2021-07-05 10:54 | P.HPIM ---
History of Present Illness H&P Date: 07/04/21 Gaetano Lorenz, is a 71-year-old male who presented to [facility] emergency room with a chief complaint of worsening shortness of breath for several weeks, patient started having chest pain 2 days prior to admission on and off. He had multiple admissions at [facility] and was diagnosed with congestive heart failure, he also had an abnormality on computed tomography scan in the base of the right lung which was not clear whether that was a pulmonary mass versus eventration of the diaphragm per radiology, he was evaluated by Dr. TALYA Giron at [facility] and was scheduled for an outpatient PET scan which he had done about 2 weeks ago results are not available to me at this time, will try to obtain results. He was evaluated in the emergency room vital examination on presentation revealed a temperature of 98 pulse 82 respiration 18 blood pressure 115/78 pulse ox 99% on room air Laboratory data revealed a white blood count of 12.9 hemoglobin 11.3 platelet count 334 sodium 137 potassium 4.1 chloride 103 CO2 25 BUN 22 creatinine 0.68 troponin level 0.147 Testing in the emergency room revealed chest x-ray revealed bilateral lower lobe infiltrates and small effusion and evidence of COPD, EKG revealing normal sinus rhythm with right bundle branch block and signs of an anteroseptal infarct age undetermined. Patient was admitted to medical floor for further evaluation and treatment On review of systems patient had episodes of chest pain over the last 2 days, he had worsening shortness of breath for the last several weeks otherwise he denies any complaints there is no fever or chills no headache or dizziness no cough no nausea or vomiting no abdominal pain no diarrhea no blood in the stools no burning with urination no frequency or urgency no hematuria, there is no weakness or numbness in any of the extremities, there is no change in vision speech or gait. Past Medical History Past Medical History: Cancer, COPD, Diabetes Mellitus, GERD/Reflux, Hearing Disorder / Deafness, Hypertension, Osteoarthritis (OA), Prostate Disorder, Sleep Apnea/CPAP/BIPAP Additional Past Medical History / Comment(s): Optic migraines, diverticulosis, kidney stones, neuropathy hands & feet, low BACK PAIN. 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 CPAP use, bilateral hearing aid use, wears brace on bilateral legs. History of Any Multi-Drug Resistant Organisms: None Reported Date of last positivie culture/infection: none MDRO Source:: none Past Surgical History: Back Surgery, Breast Surgery, Hernia Repair, Joint Replacement Additional Past Surgical History / Comment(s): EGD . Laparoscopic Mireya Fundoplasty, CYSTOSCOPY AND LITHOTRIPSY LEfT URETERAL STENT-SINCE REMOVED. RIGHT BREAST BIOPSY, TOTAL LEFT KNEE REPLACEMENT, LEFT FOOT SURGERY, BILATERAL INGUINAL HERNIA REPAIR, PERCUTANEOUS NEPHROLITHOTOMY, BILATERAL hand surgery, back procedure for nerve endings and cortisone injections, ESOPHGEAL DILATION, eye surgery to remove tumors, LUMPECTOMY RIGHT BREAST. Past Anesthesia/Blood Transfusion Reactions: No Reported Reaction Additional Past Anesthesia/Blood Transfusion Reaction / Comment(s): NEVER HAD ANY BLOOD TRANSFUSIONS. Past Psychological History: No Psychological Hx Reported Smoking Status: Former smoker - Past Family History Father Family Medical History: Cancer Mother Family Medical History: No Reported History Additional Family Medical History / Comment(s): . Medications and Allergies Home Medications Medication Instructions Recorded Confirmed Type Temazepam [Restoril] 30 mg PO HS 03/05/15 07/04/21 History Citalopram Hydrobromide [CeleXA] 40 mg PO DAILY 02/05/16 07/04/21 History Levocetirizine Dihydrochloride 5 mg PO HS 07/13/16 07/04/21 History [Xyzal] Tamsulosin [Flomax] 0.4 mg PO HS 07/13/16 07/04/21 History metFORMIN HCL [Glucophage XR] 500 mg PO BID 11/27/16 07/04/21 History Fluticasone Nasal [place] [Flonase 2 spr EA NOSTRIL BID 03/26/18 07/04/21 History Nasal [place]] Loratadine-Pseudoeph 10-240 mg 1 tab PO DAILY PRN 08/14/19 07/04/21 History [Claritin-D 24 Hour] Dicyclomine [Bentyl] 20 mg PO QID PRN 07/21/20 07/04/21 History Diclofenac Sodium Gel [Voltaren 4 gm TOPICAL TID PRN 01/06/21 07/04/21 History Gel] Gabapentin 600 mg PO Q8H PRN 03/20/21 07/04/21 History Omeprazole 40 mg PO BID 03/20/21 07/04/21 History Atorvastatin [Lipitor] 10 mg PO DAILY 30 Days #30 tab 03/25/21 07/04/21 Rx Furosemide [Lasix] 40 mg PO DAILY 30 Days #30 tab 03/25/21 07/04/21 Rx Methimazole [Tapazole] 5 mg PO DAILY 07/04/21 07/04/21 History Allergies Allergy/AdvReac Type Severity Reaction Status Date / Time cephalexin monohydrate Allergy Rash/Hives Verified 07/04/21 17:08 [From Keflex] clarithromycin [From Biaxin] Allergy Unknown Verified 07/04/21 17:08 gentamicin [Gentamicin] Allergy Unknown Verified 07/04/21 17:08 naproxen Allergy Unknown Verified 07/04/21 17:08 Penicillins Allergy Anaphylaxis Verified 07/04/21 17:08 Sulfa (Sulfonamide Allergy Rash/Hives Verified 07/04/21 17:08 Antibiotics) promethazine AdvReac Nausea & Verified 07/04/21 17:08 Vomiting Physical Exam Vitals: Vital Signs Temp Pulse Resp BP Pulse Ox 07/04/21 17:18 86 18 116/73 95 07/04/21 15:26 98.0 F 82 18 115/78 99 Intake and Output 07/04/21 07/04/21 07/04/21 06:59 14:59 22:59 Other: Weight 81.647 kg In general patient is alert and oriented x 3 in no distress HEENT head normocephalic and atraumatic Neck is supple no JVD no goiter no lymphadenopathy no carotid bruit Chest examination reveals a few scattered crackles in bases no wheezing Cardiac exam reveals regular heart sounds S1 and S2 no gallops no murmurs Abdomen is soft nontender no organomegaly with normal bowel sounds Extremity exam reveals no edema no cyanosis or clubbing Neurological examination reveals no gross focal deficits Results CBC & Chem 7: 07/05/21 07:29 07/05/21 07:29 Labs: Abnormal Lab Results - Last 24 Hours (Table) 07/04/21 07/04/21 07/04/21 Range/Units 16:02 16:02 16:02 WBC 12.9 H (3.8-10.6) k/uL RBC 4.04 L (4.30-5.90) m/uL Hgb 11.3 L (13.0-17.5) gm/dL Hct 35.1 L (39.0-53.0) % RDW 20.9 H (11.5-15.5) % Neutrophils # 8.7 H (1.3-7.7) k/uL Monocytes # 1.1 H (0-1.0) k/uL PT 13.6 H (9.0-12.0) sec INR 1.3 H (<1.2) BUN (9-20) mg/dL Magnesium (1.6-2.3) mg/dL Alkaline Phosphatase (38-126) U/L Troponin I (0.000-0.034) ng/mL Total Protein (6.3-8.2) g/dL Ur Leukocyte Esterase Trace H (Negative) Urine Mucus Rare H (None) /hpf 07/04/21 07/04/21 Range/Units 16:02 16:02 WBC (3.8-10.6) k/uL RBC (4.30-5.90) m/uL Hgb (13.0-17.5) gm/dL Hct (39.0-53.0) % RDW (11.5-15.5) % Neutrophils # (1.3-7.7) k/uL Monocytes # (0-1.0) k/uL PT (9.0-12.0) sec INR (<1.2) BUN 22 H (9-20) mg/dL Magnesium 1.5 L (1.6-2.3) mg/dL Alkaline Phosphatase 264 H (38-126) U/L Troponin I 0.147 H* (0.000-0.034) ng/mL Total Protein 6.0 L (6.3-8.2) g/dL Ur Leukocyte Esterase (Negative) Urine Mucus (None) /hpf Assessment and Plan Plan: Non-ST elevation myocardial infarction Acute on chronic congestive heart failure, will obtain echocardiogram 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, patient had a head scan as outpatient with try to obtain results Underlying history of ncs-fchvgrw-drlatraht diabetes Spencer's Underlying history of hyperthyroidism maintained on Tapazole Underlying history of benign prostatic hypertrophy Underlying history of depression maintained on Celexa Underlying history of hypertension Underlying history of hyperlipidemia At this time patient is admitted to telemetry floor He was started on IV heparin in the emergency room Echocardiogram was ordered, cardiology consultation was requested At this time will hold metformin in case patient will need to have IV contrast Otherwise home medication reviewed and reordered I will check TSH I will try to obtain results of PET scan from [facility] I will add pulmonary consultation Will follow closely during this hospitalization
[2021-07-05 11:53] LABS: Glucose,Whole Blood 131 mg/dL (75-99)
--- NOTE | 2021-07-05 12:22 | ECHOF ---
Referral Reason:CHF, chest pain, abnormal trops MEASUREMENTS -------- HEIGHT: 170.2 cm WEIGHT: 74.4 kg BP: RVIDd: 2.6 cm (< 3.3) IVSd: 2.1 cm (0.6 - 1.1) LVIDd: 3.9 cm (3.9 - 5.3) LVPWd: 1.8 cm (0.6 - 1.1) IVSs: 2.3 cm LVIDs: 3.1 cm LVPWs: 2.0 cm LAESV Index (A-L): 25.07 ml/m Ao Diam: 4.1 cm (2.0 - 3.7) AV Cusp: 2.4 cm (1.5 - 2.6) LA Diam: 4.0 cm (2.7 - 3.8) MV EXCURSION: 12.842 mm (> 18.000) MV EF SLOPE: 60 mm/s (70 - 150) EPSS: 0.8 cm MV E Brent: 1.31 m/s MV DecT: 193 ms MV A Brent: 0.62 m/s MV E/A Ratio: 2.10 RAP: 5.00 mmHg RVSP: 8.21 mmHg FINDINGS -------- This was a technically good study. The left ventricular size is normal. There is severe concentric left ventricular hypertrophy. Ove rall left ventricular systolic function is low-normal with, an EF between 50 - 55 %. Normal LAP Gra de 1 Diastolic Dysfunction. Basal inferior LV wall motion is probably hypokinetic. The right ventricle is normal in size. The left atrial size is normal. Normal LA size by volume 22+/-6 ml/m2. The right atrial size is normal. The aortic valve is trileaflet and appears structurally normal. The mitral valve is normal. The mitral valve leaflets are mildly thickened. Mild mitral regurgita tion is present. The tricuspid valve appears structurally normal. Mild tricuspid regurgitation present. Right vent ricular systolic pressure is normal at < 35 mmHg. There is no pulmonic regurgitation present. The aortic root size is normal. Normal inferior vena cava with normal inspiratory collapse consistent with estimated right atrial pre ssure of 5 mmHg. There is no pericardial effusion. CONCLUSIONS -------- 1. The left ventricular size is normal. 2. There is severe concentric left ventricular hypertrophy. 3. Overall left ventricular systolic function is low-normal with, an EF between 50 - 55 %. 4. Normal LAP Grade 1 Diastolic Dysfunction. 5. Basal inferior LV wall motion is hypokinetic. 6. The mitral valve leaflets are mildly thickened. 7. Mild mitral regurgitation is present. 8. Mild tricuspid regurgitation present. 9. There is no pericardial effusion. COGENERATION OPERATOR: Dayna Pascal RDCS
[2021-07-05] MEDS: HEPARIN SODIUM,PORCINE/PF 5,000 UNIT/0.5 ML SYRINGE SQ SCH (15:09)
[2021-07-05 17:01] LABS: Glucose,Whole Blood 152 mg/dL (75-99)
--- NOTE | 2021-07-05 17:28 | P.PN ---
Subjective Progress Note Date: 07/05/21 Gaetano Lorenz, is a 71-year-old male who presented to [facility] emergency room with a chief complaint of worsening shortness of breath for several weeks, patient started having chest pain 2 days prior to admission on and off. He had multiple admissions at [facility] and was diagnosed with congestive heart failure, he also had an abnormality on computed tomography scan in the base of the right lung which was not clear whether that was a pulmonary mass versus eventration of the diaphragm per radiology, he was evaluated by Dr. TALYA Giron at [facility] and was scheduled for an outpatient PET scan which he had done about 2 weeks ago results are not available to me at this time, will try to obtain results. He was evaluated in the emergency room vital examination on presentation revealed a temperature of 98 pulse 82 respiration 18 blood pressure 115/78 pulse ox 99% on room air Laboratory data revealed a white blood count of 12.9 hemoglobin 11.3 platelet count 334 sodium 137 potassium 4.1 chloride 103 CO2 25 BUN 22 creatinine 0.68 troponin level 0.147 Testing in the emergency room revealed chest x-ray revealed bilateral lower lobe infiltrates and small effusion and evidence of COPD, EKG revealing normal sinus rhythm with right bundle branch block and signs of an anteroseptal infarct age undetermined. Patient was admitted to medical floor for further evaluation and treatment On review of systems patient had episodes of chest pain over the last 2 days, he had worsening shortness of breath for the last several weeks otherwise he denies any complaints there is no fever or chills no headache or dizziness no cough no nausea or vomiting no abdominal pain no diarrhea no blood in the stools no burning with urination no frequency or urgency no hematuria, there is no weakness or numbness in any of the extremities, there is no change in vision speech or gait. On 07/05/2021 patient was seen and examined on the telemetry floor he is alert and oriented 3 in no apparent distress he is still complaining of shortness of breath otherwise he denies any complaints there is no fever or chills no headache or dizziness no chest pain no cough no nausea or vomiting no abdominal pain no diarrhea no blood in the stools no burning with urination no frequency or urgency and no hematuria Objective - Vital Signs Vital signs: Vital Signs Temp 98.1 F 07/05/21 07:47 Pulse 67 07/05/21 07:47 Resp 16 07/05/21 07:47 BP 99/66 07/05/21 07:47 Pulse Ox 97 07/05/21 07:47 Intake & Output 07/04/21 07/05/21 07/05/21 18:59 06:59 18:59 Intake Total 67.28 303.551 Output Total 1100 Balance -1032.72 303.551 Weight 81.647 kg 74.8 kg Intake: Intake, IV Titration 67.28 63.551 Amount Heparin Sod,Pork in 0.45% 67.28 63.551 NaCl 25,000 unit In 0.45 % NaCl 1 250ml.bag @ 12 UNITS/KG/HR 9.798 mls/hr IV .Q24H [facility] Rx#: [id number] Oral 240 Output: Urine 1100 Other: Voiding Method Urinal Urinal - Exam In general patient is alert and oriented x 3 in no distress HEENT head normocephalic and atraumatic Neck is supple no JVD no goiter no lymphadenopathy no carotid bruit Chest examination reveals a few scattered crackles in bases no wheezing Cardiac exam reveals regular heart sounds S1 and S2 no gallops no murmurs Abdomen is soft nontender no organomegaly with normal bowel sounds Extremity exam reveals no edema no cyanosis or clubbing Neurological examination reveals no gross focal deficits - Labs CBC & Chem 7: 07/05/21 07:29 07/05/21 07:29 Labs: Abnormal Lab Results - Last 24 Hours (Table) 07/04/21 07/04/21 07/04/21 Range/Units 16:02 16:02 16:02 WBC 12.9 H (3.8-10.6) k/uL RBC 4.04 L (4.30-5.90) m/uL Hgb 11.3 L (13.0-17.5) gm/dL Hct 35.1 L (39.0-53.0) % RDW 20.9 H (11.5-15.5) % Neutrophils # 8.7 H (1.3-7.7) k/uL Monocytes # 1.1 H (0-1.0) k/uL PT 13.6 H (9.0-12.0) sec INR 1.3 H (<1.2) APTT (22.0-30.0) sec BUN (9-20) mg/dL Glucose (74-99) mg/dL POC Glucose (mg/dL) (75-99) mg/dL Magnesium (1.6-2.3) mg/dL Alkaline Phosphatase (38-126) U/L Troponin I (0.000-0.034) ng/mL Total Protein (6.3-8.2) g/dL Ur Leukocyte Esterase Trace H (Negative) Urine Mucus Rare H (None) /hpf 07/04/21 07/04/21 07/04/21 Range/Units 16:02 16:02 18:33 WBC (3.8-10.6) k/uL RBC (4.30-5.90) m/uL Hgb (13.0-17.5) gm/dL Hct (39.0-53.0) % RDW (11.5-15.5) % Neutrophils # (1.3-7.7) k/uL Monocytes # (0-1.0) k/uL PT (9.0-12.0) sec INR (<1.2) APTT (22.0-30.0) sec BUN 22 H (9-20) mg/dL Glucose (74-99) mg/dL POC Glucose (mg/dL) 156 H (75-99) mg/dL Magnesium 1.5 L (1.6-2.3) mg/dL Alkaline Phosphatase 264 H (38-126) U/L Troponin I 0.147 H* (0.000-0.034) ng/mL Total Protein 6.0 L (6.3-8.2) g/dL Ur Leukocyte Esterase (Negative) Urine Mucus (None) /hpf 07/04/21 07/05/21 07/05/21 Range/Units 21:40 00:26 00:26 WBC (3.8-10.6) k/uL RBC (4.30-5.90) m/uL Hgb (13.0-17.5) gm/dL Hct (39.0-53.0) % RDW (11.5-15.5) % Neutrophils # (1.3-7.7) k/uL Monocytes # (0-1.0) k/uL PT (9.0-12.0) sec INR (<1.2) APTT 78.5 H (22.0-30.0) sec BUN (9-20) mg/dL Glucose (74-99) mg/dL POC Glucose (mg/dL) (75-99) mg/dL Magnesium (1.6-2.3) mg/dL Alkaline Phosphatase (38-126) U/L Troponin I 0.155 H* 0.154 H* (0.000-0.034) ng/mL Total Protein (6.3-8.2) g/dL Ur Leukocyte Esterase (Negative) Urine Mucus (None) /hpf 07/05/21 07/05/21 07/05/21 Range/Units 06:02 07:29 07:29 WBC 11.6 H (3.8-10.6) k/uL RBC 4.06 L (4.30-5.90) m/uL Hgb 11.4 L (13.0-17.5) gm/dL Hct 36.2 L (39.0-53.0) % RDW 20.7 H (11.5-15.5) % Neutrophils # (1.3-7.7) k/uL Monocytes # 1.1 H (0-1.0) k/uL PT 13.9 H (9.0-12.0) sec INR 1.4 H (<1.2) APTT 59.5 H (22.0-30.0) sec BUN (9-20) mg/dL Glucose (74-99) mg/dL POC Glucose (mg/dL) 145 H (75-99) mg/dL Magnesium (1.6-2.3) mg/dL Alkaline Phosphatase (38-126) U/L Troponin I (0.000-0.034) ng/mL Total Protein (6.3-8.2) g/dL Ur Leukocyte Esterase (Negative) Urine Mucus (None) /hpf 07/05/21 Range/Units 07:29 WBC (3.8-10.6) k/uL RBC (4.30-5.90) m/uL Hgb (13.0-17.5) gm/dL Hct (39.0-53.0) % RDW (11.5-15.5) % Neutrophils # (1.3-7.7) k/uL Monocytes # (0-1.0) k/uL PT (9.0-12.0) sec INR (<1.2) APTT (22.0-30.0) sec BUN 25 H (9-20) mg/dL Glucose 145 H (74-99) mg/dL POC Glucose (mg/dL) (75-99) mg/dL Magnesium (1.6-2.3) mg/dL Alkaline Phosphatase 212 H (38-126) U/L Troponin I (0.000-0.034) ng/mL Total Protein 6.0 L (6.3-8.2) g/dL Ur Leukocyte Esterase (Negative) Urine Mucus (None) /hpf Assessment and Plan Plan: Non-ST elevation myocardial infarction Acute on chronic congestive heart failure, will obtain echocardiogram 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, patient had a head scan as outpatient with try to obtain results Underlying history of lxk-jldkssk-vqhrpyesl diabetes Spencer's Underlying history of hyperthyroidism maintained on Tapazole Underlying history of benign prostatic hypertrophy Underlying history of depression maintained on Celexa Underlying history of hypertension Underlying history of hyperlipidemia At this time patient is admitted to telemetry floor He was started on IV heparin in the emergency room Echocardiogram was ordered, cardiology consultation was requested At this time will hold metformin in case patient will need to have IV contrast Otherwise home medication reviewed and reordered I will check TSH I will try to obtain results of PET scan from [facility] I will add pulmonary consultation Will follow closely during this hospitalization
[2021-07-05] MEDS: TAMSULOSIN 0.4 MG CAP.ER.24H PO SCH (19:54)
[2021-07-05] MEDS: LORATADINE 10 MG TAB PO SCH (19:54)
[2021-07-05] MEDS: TEMAZEPAM 15 MG CAP PO SCH (19:55)
[2021-07-05 20:21] LABS: Glucose,Whole Blood 127 mg/dL (75-99)
[2021-07-06] MEDS: HEPARIN SODIUM,PORCINE/PF 5,000 UNIT/0.5 ML SYRINGE SQ SCH ×4 (00:56→23:11)
[2021-07-06] MEDS: FUROSEMIDE 10 MG/ML 4 ML VIAL IV SCH ×4 (00:56→23:11)
[2021-07-06] MEDS: MORPHINE SULFATE 4 MG/ML SYRINGE IV PRN ×5 (03:27→23:12)
[2021-07-06] MEDS: PANTOPRAZOLE 40 MG TABLET PO SCH ×2 (06:16→18:04)
[2021-07-06] MEDS: GABAPENTIN 300 MG CAP PO PRN ×2 (06:16→20:53)
[2021-07-06 06:18] LABS: Glucose,Whole Blood 148 mg/dL (75-99)
[2021-07-06 07:43] LABS: Calcium 9.8 mg/dL (8.4-10.2); Potassium 4.5 mmol/L (3.5-5.1)
[2021-07-06] MEDS: CITALOPRAM HYDROBROMIDE 20 MG TAB PO SCH (09:20)
[2021-07-06] MEDS: ATORVASTATIN 10 MG TAB PO SCH (09:20)
[2021-07-06] MEDS: FLUTICASONE 50MCG/SPRAY NASAL 16GM EA NOSTRIL SCH ×2 (09:21→20:54)
--- NOTE | 2021-07-06 11:32 | P.PN ---
Subjective Progress Note Date: 07/06/21 Gaetano Lorenz, is a 71-year-old male who presented to [facility] emergency room with a chief complaint of worsening shortness of breath for several weeks, patient started having chest pain 2 days prior to admission on and off. He had multiple admissions at [facility] and was diagnosed with congestive heart failure, he also had an abnormality on computed tomography scan in the base of the right lung which was not clear whether that was a pulmonary mass versus eventration of the diaphragm per radiology, he was evaluated by Dr. TALYA Giron at [facility] and was scheduled for an outpatient PET scan which he had done about 2 weeks ago results are not available to me at this time, will try to obtain results. He was evaluated in the emergency room vital examination on presentation revealed a temperature of 98 pulse 82 respiration 18 blood pressure 115/78 pulse ox 99% on room air Laboratory data revealed a white blood count of 12.9 hemoglobin 11.3 platelet count 334 sodium 137 potassium 4.1 chloride 103 CO2 25 BUN 22 creatinine 0.68 troponin level 0.147 Testing in the emergency room revealed chest x-ray revealed bilateral lower lobe infiltrates and small effusion and evidence of COPD, EKG revealing normal sinus rhythm with right bundle branch block and signs of an anteroseptal infarct age undetermined. Patient was admitted to medical floor for further evaluation and treatment On review of systems patient had episodes of chest pain over the last 2 days, he had worsening shortness of breath for the last several weeks otherwise he denies any complaints there is no fever or chills no headache or dizziness no cough no nausea or vomiting no abdominal pain no diarrhea no blood in the stools no burning with urination no frequency or urgency no hematuria, there is no weakness or numbness in any of the extremities, there is no change in vision speech or gait. On 07/05/2021 patient was seen and examined on the telemetry floor he is alert and oriented 3 in no apparent distress he is still complaining of shortness of breath otherwise he denies any complaints there is no fever or chills no headache or dizziness no chest pain no cough no nausea or vomiting no abdominal pain no diarrhea no blood in the stools no burning with urination no frequency or urgency and no hematuria On 07/06/2021 patient is alert and oriented 3. Patient remains on IV Lasix. 2-D echo 60-65%. Awaiting pulmonary consult. Cardiology services are following. Patient reports ongoing chronic back pain. Patient denies nausea vomiting or diarrhea. Patient denies any urinary burning or frequency Objective - Vital Signs Vital signs: Vital Signs Temp 98.7 F 07/06/21 09:17 Pulse 86 07/06/21 09:17 Resp 18 07/06/21 09:17 BP 102/65 07/06/21 09:17 Pulse Ox 92 L 07/06/21 09:17 Intake & Output 07/05/21 07/06/21 07/06/21 18:59 06:59 18:59 Intake Total 663.551 480 Balance 663.551 480 Weight 75 kg Intake: Intake, IV Titration 63.551 Amount Heparin Sod,Pork in 0.45% 63.551 NaCl 25,000 unit In 0.45 % NaCl 1 250ml.bag @ 12 UNITS/KG/HR 9.798 mls/hr IV .Q24H [facility] Rx#: [id number] Oral 600 480 Other: Voiding Method Urinal Urinal # Voids 6 - Exam In general patient is alert and oriented x 3 in no distress HEENT head normocephalic and atraumatic Neck is supple no JVD no goiter no lymphadenopathy no carotid bruit Chest examination reveals a few scattered crackles in bases no wheezing Cardiac exam reveals regular heart sounds S1 and S2 no gallops no murmurs Abdomen is soft nontender no organomegaly with normal bowel sounds Extremity exam reveals no edema no cyanosis or clubbing Neurological examination reveals no gross focal deficits - Labs CBC & Chem 7: 07/05/21 07:29 07/06/21 06:58 Labs: Abnormal Lab Results - Last 24 Hours (Table) 07/05/21 07/05/21 07/05/21 Range/Units 07:29 11:52 17:00 Chloride (98-107) mmol/L Carbon Dioxide (22-30) mmol/L BUN (9-20) mg/dL Glucose (74-99) mg/dL POC Glucose (mg/dL) 131 H 152 H (75-99) mg/dL TSH 5.100 H (0.465-4.680) mIU/L 07/05/21 07/06/21 07/06/21 Range/Units 20:20 06:17 06:58 Chloride 96 L (98-107) mmol/L Carbon Dioxide 32 H (22-30) mmol/L BUN 32 H (9-20) mg/dL Glucose 159 H (74-99) mg/dL POC Glucose (mg/dL) 127 H 148 H (75-99) mg/dL TSH (0.465-4.680) mIU/L Assessment and Plan Plan: Non-ST elevation myocardial infarction Acute on chronic congestive heart failure, will obtain echocardiogram 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, patient had a head scan as outpatient with try to obtain results Underlying history of yas-lnwmcpt-pletiuaim diabetes mellitus Underlying history of hyperthyroidism maintained on Tapazole Underlying history of benign prostatic hypertrophy Underlying history of depression maintained on Celexa Underlying history of hypertension Underlying history of hyperlipidemia At this time patient is admitted to telemetry floor 2-D echo completed showing an EF of 60-65% At this time will hold metformin in case patient will need to have IV contrast Otherwise home medication reviewed and reordered I will try to obtain results of PET scan from [facility] I will add pulmonary consultation Will follow closely during this hospitalization
[2021-07-06] MEDS: methIMAzole 5 MG TAB PO SCH (11:41)
[2021-07-06 11:48] LABS: Glucose,Whole Blood 164 mg/dL (75-99)
--- NOTE | 2021-07-06 13:45 | P.CNPUL ---
History of Present Illness Consult date: 07/06/21 Requesting physician: Haley Villa Reason for consult: dyspnea, COPD, hypoxemia, abnormal CXR/CT Chief complaint: Shortness of breath/CHF. History of present illness: Pulmonary/critical care consultation dated 07/06/2021. Appendectomy 71-year-old male with a history of CHF, diabetes, and hypertension. The patient presents to the emergency department on July 04, complaining of increasing shortness of breath for 2 weeks, prior to admission. The patient shortness of breath is primarily on exertion, not so much at rest. In addition, the patient noticed increasing abdominal distention, as well as lower extremity edema. He also had a pressure sensation in his chest area. Patient did smoke for 45 years at 1 pack a day. His family care doctor is Dr. Hastings. He does see one of the cardiologists. Currently, he states that he's feeling better. He feels less short of breath. He is currently on 2 L of oxygen, by nasal cannula. I told him he should probably uses oxygen when he sleeping, and when he is exerting himself. He has a concentrator at home, plus a portable device with conserver. He denies a prior history of chronic obstructive pulmonary disease, and probably would benefit from a complete pulmonary function test given his smoking history. Medical history includes diabetes, gastroesophageal reflux disease, impaired hearing, hypertension, DJD, sleep apnea, migraine cephalgia, diverticular disease, kidney stones, diabetic neuropathy, skin cancer, among other things. Family history is positive for unknown type of cancer in his father. Most recent labs include a white count of 11.6, hemoglobin 11.4, hematocrit 36.2, and platelet count 206,000. PT 13.9, INR 1.4, and PTT sodium 140, potassium 4.5, chlorides 96, CO2 32, anion gap 12, BUN 32, and creatinine 1.12. His troponins on admission were 0.155, and 0.154. His N- terminal proBNP was 8330. TSH was 5.1. Urine was negative. Coronavirus testing was negative. Chest x-ray in my opinion was consistent with fluid overload/CHF, and bilateral pleural effusions. Review of Systems REVIEW OF SYSTEMS: CONSTITUTIONAL: [Negative.] NEUROLOGIC: [ Negative.] HEENT: [ Negative.] CARDIAC: Lower extremity edema. PULMONARY: Shortness of breath. GI: Abdominal distention. : [Negative.] RHEUMATOLOGIC: [ Negative.] IMMUNOLOGIC: [ Negative.] ENDOCRINE: [Negative. ] DERMATOLOGIC: [Negative.] Past Medical History Past Medical History: Cancer, COPD, Diabetes Mellitus, GERD/Reflux, Hearing Disorder / Deafness, Hypertension, Osteoarthritis (OA), Prostate Disorder, Sleep Apnea/CPAP/BIPAP Additional Past Medical History / Comment(s): Optic migraines, diverticulosis, kidney stones, neuropathy hands & feet, low BACK PAIN. 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 CPAP use, bilateral hearing aid use, wears brace on bilateral legs. History of Any Multi-Drug Resistant Organisms: None Reported Date of last positivie culture/infection: none MDRO Source:: none Past Surgical History: Back Surgery, Breast Surgery, Hernia Repair, Joint Replacement Additional Past Surgical History / Comment(s): EGD . Laparoscopic Mireya Fundoplasty, CYSTOSCOPY AND LITHOTRIPSY LEfT URETERAL STENT-SINCE REMOVED. RIGHT BREAST BIOPSY, TOTAL LEFT KNEE REPLACEMENT, LEFT FOOT SURGERY, BILATERAL INGUINAL HERNIA REPAIR, PERCUTANEOUS NEPHROLITHOTOMY, BILATERAL hand surgery, ba ck procedure for nerve endings and cortisone injections, ESOPHGEAL DILATION, eye surgery to remove tumors, LUMPECTOMY RIGHT BREAST. Past Anesthesia/Blood Transfusion Reactions: No Reported Reaction Additional Past Anesthesia/Blood Transfusion Reaction / Comment(s): NEVER HAD ANY BLOOD TRANSFUSIONS. Past Psychological History: No Psychological Hx Reported Smoking Status: Former smoker - Past Family History Father Family Medical History: Cancer Mother Family Medical History: No Reported History Additional Family Medical History / Comment(s): . Medications and Allergies Home Medications Medication Instructions Recorded Confirmed Type Temazepam [Restoril] 30 mg PO HS 03/05/15 07/04/21 History Citalopram Hydrobromide [CeleXA] 40 mg PO DAILY 02/05/16 07/04/21 History Levocetirizine Dihydrochloride 5 mg PO HS 07/13/16 07/04/21 History [Xyzal] Tamsulosin [Flomax] 0.4 mg PO HS 07/13/16 07/04/21 History metFORMIN HCL [Glucophage XR] 500 mg PO BID 11/27/16 07/04/21 History Fluticasone Nasal [place] [Flonase 2 spr EA NOSTRIL BID 03/26/18 07/04/21 History Nasal [place]] Loratadine-Pseudoeph 10-240 mg 1 tab PO DAILY PRN 08/14/19 07/04/21 History [Claritin-D 24 Hour] Dicyclomine [Bentyl] 20 mg PO QID PRN 07/21/20 07/04/21 History Diclofenac Sodium Gel [Voltaren 4 gm TOPICAL TID PRN 01/06/21 07/04/21 History Gel] Gabapentin 600 mg PO Q8H PRN 03/20/21 07/04/21 History Omeprazole 40 mg PO BID 03/20/21 07/04/21 History Atorvastatin [Lipitor] 10 mg PO DAILY 30 Days #30 tab 03/25/21 07/04/21 Rx Furosemide [Lasix] 40 mg PO DAILY 30 Days #30 tab 03/25/21 07/04/21 Rx Methimazole [Tapazole] 5 mg PO DAILY 07/04/21 07/04/21 History Allergies Allergy/AdvReac Type Severity Reaction Status Date / Time cephalexin monohydrate Allergy Rash/Hives Verified 07/04/21 17:08 [From Keflex] clarithromycin [From Biaxin] Allergy Unknown Verified 07/04/21 17:08 gentamicin [Gentamicin] Allergy Unknown Verified 07/04/21 17:08 naproxen Allergy Unknown Verified 07/04/21 17:08 Penicillins Allergy Anaphylaxis Verified 07/04/21 17:08 Sulfa (Sulfonamide Allergy Rash/Hives Verified 07/04/21 17:08 Antibiotics) promethazine AdvReac Nausea & Verified 07/04/21 17:08 Vomiting Physical Exam Osteopathic Statement: *. No significant issues noted on an osteopathic structural exam other than those noted in the History and Physical/Consult. Vitals: Vital Signs Temp Pulse Resp BP Pulse Ox 07/06/21 11:40 80 16 109/69 94 L 07/06/21 09:17 98.7 F 86 18 102/65 92 L 07/06/21 03:34 98.2 F 80 18 106/67 92 L 07/06/21 02:00 80 16 07/06/21 00:00 98.3 F 80 16 96/58 97 07/05/21 20:00 98.4 F 84 16 107/68 94 L 07/05/21 15:09 98.0 F 84 16 103/68 98 Intake and Output 07/05/21 07/06/21 07/06/21 22:59 06:59 14:59 Intake Total 240 480 Balance 240 480 Intake: Oral 240 480 Other: Voiding Method Urinal Urinal # Voids 6 Weight 75 kg No acute distress, oriented 3. Currently on 2 L nasal cannula. Saturations 97%. HEENT examination is grossly unremarkable. Neck supple. Full range of motion. No adenopathy thyromegaly or neck vein distention. Cardiovascular examination reveals regular rhythm rate. S1-S2 normal. No S3 or S4. No discernible murmur noted. Heart sounds are distant. Heart rate 80 bpm. Lungs reveal few scattered crackles. No wheezes or rhonchi. Breath sounds equal bilaterally. Saturations on 2 L are 97% and on room air, saturations are 92%. Abdomen soft bowel sounds are heard. No masses or tenderness. Extremities are intact. No cyanosis clubbing or edema. Skin is without rash or lesion. Neurologic examination is brief but nonfocal. Results - Laboratory Findings CBC and BMP: 07/05/21 07:29 07/06/21 06:58 PT/INR, D-dimer PT 13.9 sec (9.0-12.0) H 07/05/21 07:29 INR 1.4 (<1.2) H 07/05/21 07:29 Abnormal lab findings: Abnormal Labs 07/04/21 07/04/21 07/04/21 16:02 16:02 16:02 WBC 12.9 H RBC 4.04 L Hgb 11.3 L Hct 35.1 L RDW 20.9 H Neutrophils # 8.7 H Monocytes # 1.1 H PT 13.6 H INR 1.3 H APTT Chloride Carbon Dioxide BUN Glucose POC Glucose (mg/dL) Magnesium Alkaline Phosphatase Troponin I Total Protein TSH Ur Leukocyte Esterase Trace H Urine Mucus Rare H 07/04/21 07/04/21 07/04/21 16:02 16:02 18:33 WBC RBC Hgb Hct RDW Neutrophils # Monocytes # PT INR APTT Chloride Carbon Dioxide BUN 22 H Glucose POC Glucose (mg/dL) 156 H Magnesium 1.5 L Alkaline Phosphatase 264 H Troponin I 0.147 H* Total Protein 6.0 L TSH Ur Leukocyte Esterase Urine Mucus 07/04/21 07/05/2107/05/21 21:40 00:26 00:26 WBC RBC Hgb Hct RDW Neutrophils # Monocytes # PT INR APTT 78.5 H Chloride Carbon Dioxide BUN Glucose POC Glucose (mg/dL) Magnesium Alkaline Phosphatase Troponin I 0.155 H* 0.154 H* Total Protein TSH Ur Leukocyte Esterase Urine Mucus 07/05/21 07/05/21 07/05/21 06:02 07:29 07:29 WBC 11.6 H RBC 4.06 L Hgb 11.4 L Hct 36.2 L RDW 20.7 H Neutrophils # Monocytes # 1.1 H PT 13.9 H INR 1.4 H APTT 59.5 H Chloride Carbon Dioxide BUN Glucose POC Glucose (mg/dL) 145 H Magnesium Alkaline Phosphatase Troponin I Total Protein TSH Ur Leukocyte Esterase Urine Mucus 07/05/21 07/05/21 07/05/21 07:29 07:29 11:52 WBC RBC Hgb Hct RDW Neutrophils # Monocytes # PT INR APTT Chloride Carbon Dioxide BUN 25 H Glucose 145 H POC Glucose (mg/dL) 131 H Magnesium Alkaline Phosphatase 212 H Troponin I Total Protein 6.0 L TSH 5.100 H Ur Leukocyte Esterase Urine Mucus 07/05/21 07/05/21 07/06/21 17:00 20:20 06:17 WBC RBC Hgb Hct RDW Neutrophils # Monocytes # PT INR APTT Chloride Carbon Dioxide BUN Glucose POC Glucose (mg/dL) 152 H 127 H 148 H Magnesium Alkaline Phosphatase Troponin I Total Protein TSH Ur Leukocyte Esterase Urine Mucus 07/06/21 07/06/21 06:58 11:38 WBC RBC Hgb Hct RDW Neutrophils # Monocytes # PT INR APTT Chloride 96 L Carbon Dioxide 32 H BUN 32 H Glucose 159 H POC Glucose (mg/dL) 164 H Magnesium Alkaline Phosphatase Troponin I Total Protein TSH Ur Leukocyte Esterase Urine Mucus - Diagnostic Findings Chest x-ray: image reviewed Assessment and Plan Assessment: Progressive shortness of breath, secondary to congestive heart failure. Possible underlying COPD, yet to be determined. Patient needs outpatient PFTs. Prior history of heavy tobacco use. History of skin cancer. History of diabetes mellitus with diabetic neuropathy. History of gastroesophageal reflux disease. History of hypertension. History of ocular migraines. Diverticular disease. History of kidney stones. History of multiple other medical problems and comorbidities. Plan: Plan dated 07/06/2021. I told the patient that I would like to see him in the office after discharge. The patient will need complete pulmonary function test to determine whether or not he has underlying COPD. He did smoke a pack a day for 45 years. Does not smoke currently. Additional recommendations and suggestions are forthcoming. He is feeling much better now that he's received diuretics. His lower extremity edema is much improved. He does have some abdominal distention, and may have some ascites. We'll continue to follow make recommendations where appropriate. Time with Patient: Greater than 30
--- NOTE | 2021-07-06 13:51 | P.PN ---
Subjective Progress Note Date: 07/06/21 HISTORY OF PRESENT ILLNESS: This is a 71-year-old male with a past medical history significant for diabetes, hypertension, hyperlipidemia, and congestive heart failure. Patient follows in the office with Dr. Brito. We have been asked to see the patient in consultation for non-STEMI, heart failure. Patient examined at the bedside. Patient reports he has been feeling short of breath for the past 2 weeks. He also reports increased lower extremity edema. The patient states he has been having chest pressure for the last 2 days that is intermittent and is mostly with exertion. The patient came to the emergency room for further evaluation. The patient was found to be in congestive heart failure and he was started on IV Lasix. The patient reports improvement in his shortness of breath and his lower extremity edema this morning. She currently denies chest pain or pressure. EKG reveals his mechanism with right bundle branch block. Chest xray bilateral lower lobe infiltrate and small effusion. Could not exclude a pulmonary nodule or nipple shadow at the right lung base. COPD.. Laboratory data: WBC 11.6. Hemoglobin 11.4. Platelet count 306. INR 1.4. Sodium 140. Potassium 4.3. BUN 25. Creatinine 0.84. Troponin 0.147. 0.155. 0.154. ProBNP 8330. Current home cardiac medications include Lipitor 10 mg daily, Lasix 40 mg daily Most recent echocardiogram obtained in February 2021 revealed ejection fraction 60- 65%, mild mitral regurgitation, mild tricuspid regurgitation, and small pleural effusion Cardiac catheterization history: March 2021 revealing normal coronary arteries with minimal and small plaque. Maximum medical therapy was recommended. 07/06/2021 Patient examined this morning at the bedside. Patient denies chest pain or pressure. Patient denies shortness of breath at rest. He does report that he tried to walk to the nurse's station and was extremely winded. He remains on IV Lasix. BUN 32. Creatinine 1.12. Echocardiogram completed revealed ejection fraction 50-55%, basal inferior LV wall hypokinesis, mild mitral regurgitation, and mild tricuspid regurgitation. PHYSICAL EXAM: VITAL SIGNS: Reviewed. GENERAL: Well-developed in no acute distress. HEENT: Head is normocephalic. Pupils are equal, round. Sclerae anicteric. Mucous membranes of the mouth are moist. Neck supple. No JVD or thyromegaly LUNGS: Respirations even and unlabored. Lungs diminished bilaterally. HEART: Regular rate and rhythm. S1 and S2 heard. ABDOMEN: Soft. Nondistended. Nontender. EXTREMITIES: Normal range of motion. No clubbing or cyanosis. Peripheral pulses intact. Trace bilateral lower extremity edema NEUROLOGIC: Awake and alert. Oriented x 3. ASSESSMENT: Acute exacerbation of chronic diastolic congestive heart failure, EF 60-65% Abnormal troponins, secondary to CHF, not indicative of acute coronary syndrome Hypertension Hyperlipidemia Diabetes PLAN: Continue IV Lasix for an additional 24 hours Monitor kidney function Daily weight Accurate I and O Further recommendations pending patient's course Nurse practitioner note has been reviewed by physician. Signing provider agrees with the documented findings, assessment, and plan of care. Objective - Vital Signs Vital signs: Vital Signs Temp 98.7 F 07/06/21 09:17 Pulse 80 07/06/21 11:40 Resp 16 07/06/21 11:40 BP 109/69 07/06/21 11:40 Pulse Ox 94 L 07/06/21 11:40 Intake & Output 07/05/21 07/06/21 07/06/21 18:59 06:59 18:59 Intake Total 663.551 480 Balance 663.551 480 Weight 75 kg Intake: Intake, IV Titration 63.551 Amount Heparin Sod,Pork in 0.45% 63.551 NaCl 25,000 unit In 0.45 % NaCl 1 250ml.bag @ 12 UNITS/KG/HR 9.798 mls/hr IV .Q24H NILS Rx#: [id number] Oral 600 480 Other: Voiding Method Urinal Urinal # Voids 6 - Labs CBC & Chem 7: 07/05/21 07:29 07/06/21 06:58 Labs: Abnormal Lab Results - Last 24 Hours (Table) 07/05/21 07/05/21 07/06/21 Range/Units 17:00 20:20 06:17 Chloride (98-107) mmol/L Carbon Dioxide (22-30) mmol/L BUN (9-20) mg/dL Glucose (74-99) mg/dL POC Glucose (mg/dL) 152 H 127 H 148 H (75-99) mg/dL 07/06/21 07/06/21 Range/Units 06:58 11:38 Chloride 96 L (98-107) mmol/L Carbon Dioxide 32 H (22-30) mmol/L BUN 32 H (9-20) mg/dL Glucose 159 H (74-99) mg/dL POC Glucose (mg/dL) 164 H (75-99) mg/dL
[2021-07-06 17:11] LABS: Glucose,Whole Blood 127 mg/dL (75-99)
[2021-07-06 20:20] LABS: Glucose,Whole Blood 205 mg/dL (75-99)
[2021-07-06] MEDS: TAMSULOSIN 0.4 MG CAP.ER.24H PO SCH (20:53)
[2021-07-06] MEDS: LORATADINE 10 MG TAB PO SCH (20:53)
[2021-07-06] MEDS: TEMAZEPAM 15 MG CAP PO SCH (23:11)
[2021-07-07 05:57] LABS: Glucose,Whole Blood 144 mg/dL (75-99)
[2021-07-07] MEDS: INSULIN ASPART (NovoLOG) 100 UNIT/ML VIAL SQ SCH ×4 (05:58→21:00)
[2021-07-07] MEDS: MORPHINE SULFATE 4 MG/ML SYRINGE IV PRN ×5 (05:59→22:06)
[2021-07-07] MEDS: PANTOPRAZOLE 40 MG TABLET PO SCH ×2 (05:59→16:58)
[2021-07-07 07:03] LABS: Anisocytosis Moderate; Basophils # (A) 0.1 k/uL (0-0.2); Basophils % (A) 1 %; Eosinophils # (A) 0.2 k/uL (0-0.7); Eosinophils % (A) 2 %; HCT 39.7 % (39.0-53.0); HGB 12.2 gm/dL (13.0-17.5); Hypochromasia Marked; Lymphocytes # (A) 2.5 k/uL (1.0-4.8); Lymphocytes % (A) 22 %; MCH 27.6 pg (25.0-35.0); MCHC 30.7 g/dL (31.0-37.0); MCV 89.9 fL (80.0-100.0); Mean Platelet Volume 9.1; Microcytosis Slight; Monocytes # (A) 1.1 k/uL (0-1.0); Monocytes % (A) 9 %; Neutrophils # (A) 7.3 k/uL (1.3-7.7); Neutrophils % (A) 64 %; Platelet Count 312 k/uL (150-450); Poikilocytosis Slight; RBC 4.41 m/uL (4.30-5.90); RDW 20.4 % (11.5-15.5); WBC 11.4 k/uL (3.8-10.6)
[2021-07-07 08:00] LABS: ALT 22 U/L (4-49); AST 27 U/L (17-59); African American GFR (CKD) >90 (>60 ml/min/1.73 sqM); Albumin 3.9 g/dL (3.5-5.0); Alkaline Phosphatase 233 U/L (38-126); Anion Gap 11 mmol/L; Blood Urea Nitrogen 40 mg/dL (9-20); Carbon Dioxide 30 mmol/L (22-30); Chloride 98 mmol/L (98-107); Glucose 155 mg/dL (74-99); Non-African American GFR(CKD) 80 (>60 ml/min/1.73 sqM); Potassium 3.9 mmol/L (3.5-5.1); Sodium 139 mmol/L (137-145); Total Bilirubin 0.8 mg/dL (0.2-1.3); Total Protein 6.5 g/dL (6.3-8.2)
[2021-07-07] MEDS: HEPARIN SODIUM,PORCINE/PF 5,000 UNIT/0.5 ML SYRINGE SQ SCH ×2 (08:37→16:58)
[2021-07-07] MEDS: FLUTICASONE 50MCG/SPRAY NASAL 16GM EA NOSTRIL SCH ×2 (08:38→21:00)
[2021-07-07] MEDS: CITALOPRAM HYDROBROMIDE 20 MG TAB PO SCH (08:38)
[2021-07-07] MEDS: FUROSEMIDE 10 MG/ML 4 ML VIAL IV SCH (08:38)
[2021-07-07] MEDS: ATORVASTATIN 10 MG TAB PO SCH (08:38)
[2021-07-07 11:46] LABS: Glucose,Whole Blood 180 mg/dL (75-99)
--- NOTE | 2021-07-07 12:11 | P.PN ---
Subjective Progress Note Date: 07/07/21 HISTORY OF PRESENT ILLNESS: This is a 71-year-old male with a past medical history significant for diabetes, hypertension, hyperlipidemia, and congestive heart failure. Patient follows in the office with Dr. Brito. We have been asked to see the patient in consultation for non-STEMI, heart failure. Patient examined at the bedside. Patient reports he has been feeling short of breath for the past 2 weeks. He also reports increased lower extremity edema. The patient states he has been having chest pressure for the last 2 days that is intermittent and is mostly with exertion. The patient came to the emergency room for further evaluation. The patient was found to be in congestive heart failure and he was started on IV Lasix. The patient reports improvement in his shortness of breath and his lower extremity edema this morning. She currently denies chest pain or pressure. EKG reveals his mechanism with right bundle branch block. Chest xray bilateral lower lobe infiltrate and small effusion. Could not exclude a pulmonary nodule or nipple shadow at the right lung base. COPD.. Laboratory data: WBC 11.6. Hemoglobin 11.4. Platelet count 306. INR 1.4. Sodium 140. Potassium 4.3. BUN 25. Creatinine 0.84. Troponin 0.147. 0.155. 0.154. ProBNP 8330. Current home cardiac medications include Lipitor 10 mg daily, Lasix 40 mg daily Most recent echocardiogram obtained in February 2021 revealed ejection fraction 60- 65%, mild mitral regurgitation, mild tricuspid regurgitation, and small pleural effusion Cardiac catheterization history: March 2021 revealing normal coronary arteries with minimal and small plaque. Maximum medical therapy was recommended. 07/06/2021 Patient examined this morning at the bedside. Patient denies chest pain or pressure. Patient denies shortness of breath at rest. He does report that he tried to walk to the nurse's station and was extremely winded. He remains on IV Lasix. BUN 32. Creatinine 1.12. Echocardiogram completed revealed ejection fraction 50-55%, basal inferior LV wall hypokinesis, mild mitral regurgitation, and mild tricuspid regurgitation. 07/07/2021 Patient examined this morning at the bedside. He denies shortness of breath. He denies chest pain or pressure. He remains on IV lasix. BUN increased to 40. Patient is ambulating in his room without difficulty. PHYSICAL EXAM: VITAL SIGNS: Reviewed. GENERAL: Well-developed in no acute distress. HEENT: Head is normocephalic. Pupils are equal, round. Sclerae anicteric. Mucous membranes of the mouth are moist. Neck supple. No JVD or thyromegaly LUNGS: Respirations even and unlabored. Lungs diminished bilaterally. HEART: Regular rate and rhythm. S1 and S2 heard. ABDOMEN: Soft. Nondistended. Nontender. EXTREMITIES: Normal range of motion. No clubbing or cyanosis. Peripheral pulses intact. Trace bilateral lower extremity edema NEUROLOGIC: Awake and alert. Oriented x 3. ASSESSMENT: Acute exacerbation of chronic diastolic congestive heart failure, EF 60-65% Abnormal troponins, secondary to CHF, not indicative of acute coronary syndrome Hypertension Hyperlipidemia Diabetes PLAN: Discontinue IV lasix. Begin oral lasix 40mg BID. Monitor kidney function Daily weight Accurate I and O Further recommendations pending patient's course Nurse practitioner note has been reviewed by physician. Signing provider agrees with the documented findings, assessment, and plan of care. Objective - Vital Signs Vital signs: Vital Signs Temp 97.6 F 07/07/21 12:00 Pulse 75 07/07/21 12:00 Resp 20 07/07/21 12:00 BP 97/62 07/07/21 12:00 Pulse Ox 94 L 07/07/21 12:00 Intake & Output 07/06/21 07/07/21 07/07/21 18:59 06:59 18:59 Intake Total 1200 480 Output Total 400 325 Balance 1200 -400 155 Weight 73.3 kg Intake: Oral 1200 480 Output: Urine 400 325 Other: Voiding Method Urinal Urinal Urinal # Voids 2 - Labs CBC & Chem 7: 07/07/21 06:38 07/07/21 06:38 Labs: Abnormal Lab Results - Last 24 Hours (Table) 07/06/21 07/06/21 07/07/21 Range/Units 17:01 20:19 05:56 WBC (3.8-10.6) k/uL Hgb (13.0-17.5) gm/dL MCHC (31.0-37.0) g/dL RDW (11.5-15.5) % Monocytes # (0-1.0) k/uL BUN (9-20) mg/dL Glucose (74-99) mg/dL POC Glucose (mg/dL) 127 H 205 H 144 H (75-99) mg/dL Alkaline Phosphatase (38-126) U/L 07/07/21 07/07/21 07/07/21 Range/Units 06:38 06:38 11:45 WBC 11.4 H (3.8-10.6) k/uL Hgb 12.2 L (13.0-17.5) gm/dL MCHC 30.7 L (31.0-37.0) g/dL RDW 20.4 H (11.5-15.5) % Monocytes # 1.1 H (0-1.0) k/uL BUN 40 H (9-20) mg/dL Glucose 155 H (74-99) mg/dL POC Glucose (mg/dL) 180 H (75-99) mg/dL Alkaline Phosphatase 233 H (38-126) U/L
--- NOTE | 2021-07-07 13:22 | P.PN ---
Subjective Progress Note Date: 07/07/21 Principal diagnosis: SOB. Pulmonary/critical care consultation dated 07/06/2021. 71-year-old male with a history of CHF, diabetes, and hypertension. The patient presents to the emergency department on July 04, complaining of increasing shortness of breath for 2 weeks, prior to admission. The patient shortness of breath is primarily on exertion, not so much at rest. In addition, the patient noticed increasing abdominal distention, as well as lower extremity edema. He also had a pressure sensation in his chest area. Patient did smoke for 45 years at 1 pack a day. His family care doctor is Dr. Hastings. He does see one of the cardiologists. Currently, he states that he's feeling better. He feels less short of breath. He is currently on 2 L of oxygen, by nasal cannula. I told him he should probably uses oxygen when he sleeping, and when he is exerting himself. He has a concentrator at home, plus a portable device with conserver. He denies a prior history of chronic obstructive pulmonary disease, and probably would benefit from a complete pulmonary function test given his smoking history. Medical history includes diabetes, gastroesophageal reflux disease, impaired hearing, hypertension, DJD, sleep apnea, migraine cephalgia, diverticular disease, kidney stones, diabetic neuropathy, skin cancer, among other things. Family history is positive for unknown type of cancer in his father. Most recent labs include a white count of 11.6, hemoglobin 11.4, hematocrit 36.2, and platelet count 206,000. PT 13.9, INR 1.4, and PTT sodium 140, potassium 4.5, chlorides 96, CO2 32, anion gap 12, BUN 32, and creatinine 1.12. His troponins on admission were 0.155, and 0.154. His N-terminal proBNP was 8330. TSH was 5.1. Urine was negative. Coronavirus testing was negative. Chest x-ray in my opinion was consistent with fluid overload/CHF, and bilateral pleural effusions. Progress note dated 07/07/2021. Currently, the patient appears to be doing better. The patient is currently not on any supplemental oxygen, and not receiving any IV fluids. He was admitted with a diagnosis of shortness of breath secondary to CHF. He also has history of diabetes and hypertension. In addition, he did smoke 45 years at 1 pack a day and may have some underlying COPD. In addition, there was some concern about an abnormal chest x-ray. Looking back, there may be a small nodule in the right lower lobe, which actually may be a nipple shadow on the most recent chest x-ray. A relatively recent CT angiogram, did not show pulmonary embolism, or any pulmonary mass. The patient will need an outpatient evaluation including a complete pulmonary function tests, 6 minute walk distance, and possibly a follow-up computed tomography scan. Clinically, he is feeling much better. Currently, white count 11.4, hemoglobin 12.2, hematocrit 39.7, and platelet count 312,000. Sodium 139, potassium 3.9, chlorides 98, CO2 30, anion gap 11, BUN 40, and creatinine 0.95. Repeat chest x-ray was not done. His last chest x-ray was done on July 04. That has been evaluated. In addition, I did look back at a scan done in the past, including a CT angiogram. Objective - Vital Signs Vital signs: Vital Signs Temp 97.6 F 07/07/21 12:00 Pulse 75 07/07/21 12:00 Resp 20 07/07/21 12:00 BP 97/62 07/07/21 12:00 Pulse Ox 94 L 07/07/21 12:00 Intake & Output 07/06/21 07/07/21 07/07/21 18:59 06:59 18:59 Intake Total 1200 480 Output Total 400 325 Balance 1200 -400 155 Weight 73.3 kg Intake: Oral 1200 480 Output: Urine 400 325 Other: Voiding Method Urinal Urinal Urinal # Voids 2 - Exam No acute distress, oriented 3. Currently on room air, with saturations between 91 and 94%. HEENT examination is grossly unremarkable. Neck supple. Full range of motion. No adenopathy thyromegaly or neck vein distention. Cardiovascular examination reveals regular rhythm rate. S1-S2 normal. No S3 or S4. No discernible murmur noted. Heart sounds are distant. Heart rate 75 bpm. Lungs reveal few scattered crackles. No wheezes or rhonchi. Breath sounds equal bilaterally. Abdomen soft bowel sounds are heard. No masses or tenderness. Extremities are intact. No cyanosis clubbing or edema. Skin is without rash or lesion. Neurologic examination is brief but nonfocal. - Labs CBC & Chem 7: 07/07/21 06:38 07/07/21 06:38 Labs: Abnormal Lab Results - Last 24 Hours (Table) 07/06/21 07/06/21 07/07/21 Range/Units 17:01 20:19 05:56 WBC (3.8-10.6) k/uL Hgb (13.0-17.5) gm/dL MCHC (31.0-37.0) g/dL RDW (11.5-15.5) % Monocytes # (0-1.0) k/uL BUN (9-20) mg/dL Glucose (74-99) mg/dL POC Glucose (mg/dL) 127 H 205 H 144 H (75-99) mg/dL Alkaline Phosphatase (38-126) U/L 07/07/21 07/07/21 07/07/21 Range/Units 06:38 06:38 11:45 WBC 11.4 H (3.8-10.6) k/uL Hgb 12.2 L (13.0-17.5) gm/dL MCHC 30.7 L (31.0-37.0) g/dL RDW 20.4 H (11.5-15.5) % Monocytes # 1.1 H (0-1.0) k/uL BUN 40 H (9-20) mg/dL Glucose 155 H (74-99) mg/dL POC Glucose (mg/dL) 180 H (75-99) mg/dL Alkaline Phosphatase 233 H (38-126) U/L Assessment and Plan Assessment: Progressive shortness of breath, secondary to congestive heart failure. Possible underlying COPD, yet to be determined. Patient needs outpatient PFTs. Prior history of heavy tobacco use. History of skin cancer. History of diabetes mellitus with diabetic neuropathy. History of gastroesophageal reflux disease. History of hypertension. History of ocular migraines. Diverticular disease. History of kidney stones. History of multiple other medical problems and comorbidities. Plan: Plan dated 07/06/2021. I told the patient that I would like to see him in the office after discharge. The patient will need complete pulmonary function test to determine whether or not he has underlying COPD. He did smoke a pack a day for 45 years. Does not smoke currently. Additional recommendations and suggestions are forthcoming. He is feeling much better now that he's received diuretics. His lower extremity edema is much improved. He does have some abdominal distention, and may have some ascites. We'll continue to follow make recommendations where appropriate. Plan dated 07/07/2021. The patient will see me in the office, have complete pulmonary function tests, as well as a 6 minute walk distance. In addition, I looked back at chest x-rays and CAT scans. There does not appear to be a mass or lesion in the lung at this time. Additional recommendations and suggestions are forthcoming. The patient is feeling much improved. His breathing is much improved. His lower extremity edema is also much improved. I did recommend that he use oxygen when he exerts himself at nighttime when he sleeps. He will make an appointment to see me in the near future. Time with Patient: Less than 30
[2021-07-07 16:42] LABS: Glucose,Whole Blood 121 mg/dL (75-99)
[2021-07-07] MEDS: FUROSEMIDE 40 MG TAB PO SCH (16:58)
[2021-07-07 20:15] LABS: Glucose,Whole Blood 144 mg/dL (75-99)
[2021-07-07] MEDS: LORATADINE 10 MG TAB PO SCH (20:59)
[2021-07-07] MEDS: TEMAZEPAM 15 MG CAP PO SCH (21:00)
[2021-07-07] MEDS: TAMSULOSIN 0.4 MG CAP.ER.24H PO SCH (21:00)
[2021-07-07 22:29] VITALS: RESP 18
[2021-07-08] MEDS: HEPARIN SODIUM,PORCINE/PF 5,000 UNIT/0.5 ML SYRINGE SQ SCH ×2 (00:37→09:12)
[2021-07-08] MEDS: MORPHINE SULFATE 4 MG/ML SYRINGE IV PRN ×2 (03:04→09:14)
[2021-07-08 06:17] LABS: Glucose,Whole Blood 167 mg/dL (75-99)
[2021-07-08] MEDS: PANTOPRAZOLE 40 MG TABLET PO SCH (06:37)
[2021-07-08] MEDS: INSULIN ASPART (NovoLOG) 100 UNIT/ML VIAL SQ SCH ×2 (06:37→11:51)
[2021-07-08] MEDS ORDERED: methIMAzole 5 MG TAB PO SCH (09:00)
[2021-07-08] MEDS: ATORVASTATIN 10 MG TAB PO SCH (09:12)
[2021-07-08] MEDS: CITALOPRAM HYDROBROMIDE 20 MG TAB PO SCH (09:12)
[2021-07-08] MEDS: FLUTICASONE 50MCG/SPRAY NASAL 16GM EA NOSTRIL SCH (09:13)
[2021-07-08] MEDS: FUROSEMIDE 40 MG TAB PO SCH (09:13)
[2021-07-08 10:20] VITALS: TEMP 97.5
--- NOTE | 2021-07-08 10:43 | P.DS ---
Providers Date of admission: 07/04/21 18:07 Expected date of discharge: 07/08/21 Attending physician: Haley Villa Consults: 07/04/21 18:08 Consult Physician Routine Consulting Provider: [facility] Consult Reason/Comments: NSTEMI, heart failure exacerbation Do you want consulting provider notified?: Yes 07/05/21 10:55 Consult Physician Routine Consulting Provider: Leonardo Can Consult Reason/Comments: Shortness of breath Do you want consulting provider notified?: Yes Primary care physician: Siria [facility] Course: Discharge diagnosis Non-ST elevation myocardial infarction Acute on chronic congestive heart failure, will obtain echocardiogram. 2-D echo completed showing preserved EF. 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 Patient was evaluated by pulmonary services. Per pulmonary chest x-rays and CAT scans reviewed there does not appear to be a mass or lesion in the lung at this time patient to follow-up with pulmonary services outpatient Underlying history of [id number] diabetes mellitus Underlying history of hyperthyroidism maintained on Tapazole. Tapazole decreased every other day Underlying history of benign prostatic hypertrophy Underlying history of depression maintained on Celexa Underlying history of hypertension Underlying history of hyperlipidemia Hospital course Gaetano Lorenz, is a 71-year-old male who presented to [facility] emergency room with a chief complaint of worsening shortness of breath for several weeks, patient started having chest pain 2 days prior to admission on and off. He had multiple admissions at [facility] and was diagnosed with congestive heart failure, he also had an abnormality on computed tomography scan in the base of the right lung which was not clear whether that was a pulmonary mass versus eventration of the diaphragm per radiology, he was evaluated by Dr. TALYA Giron at [facility] and was scheduled for an outpatient PET scan which he had done about 2 weeks ago results are not available to me at this time, will try to obtain results. He was evaluated in the emergency room vital examination on presentation revealed a temperature of 98 pulse 82 respiration 18 blood pressure 115/78 pulse ox 99% on room air Laboratory data revealed a white blood count of 12.9 hemoglobin 11.3 platelet count 334 sodium 137 potassium 4.1 chloride 103 CO2 25 BUN 22 creatinine 0.68 troponin level 0.147 Testing in the emergency room revealed chest x-ray revealed bilateral lower lobe infiltrates and small effusion and evidence of COPD, EKG revealing normal sinus rhythm with right bundle branch block and signs of an anteroseptal infarct age undetermined. Patient was admitted to medical floor for further evaluation and treatment On review of systems patient had episodes of chest pain over the last 2 days, he had worsening shortness of breath for the last several weeks otherwise he denies any complaints there is no fever or chills no headache or dizziness no cough no nausea or vomiting no abdominal pain no diarrhea no blood in the stools no burning with urination no frequency or urgency no hematuria, there is no weakness or numbness in any of the extremities, there is no change in vision speech or gait. On 07/05/2021 patient was seen and examined on the telemetry floor he is alert and oriented 3 in no apparent distress he is still complaining of shortness of breath otherwise he denies any complaints there is no fever or chills no headache or dizziness no chest pain no cough no nausea or vomiting no abdominal pain no diarrhea no blood in the stools no burning with urination no frequency or urgency and no hematuria On 07/06/2021 patient is alert and oriented 3. Patient remains on IV Lasix. 2-D echo 60-65%. Awaiting pulmonary consult. Cardiology services are following. Patient reports ongoing chronic back pain. Patient denies nausea vomiting or diarrhea. Patient denies any urinary burning or frequency On 07/07/2010 1 patient's alert and oriented 3. Patient denies chest pain or shortness breath. Patient denies nausea vomiting or diarrhea. Did discuss case with cardiology services. Patient has been cleared for discharge. Patient's Lasix will be increased to 40 mg twice a day. Patient to follow-up with PCP and consulting providers for further management. Patient Condition at Discharge: Stable Plan - Discharge Summary Discharge Rx Participant: Yes New Discharge Prescriptions: New Furosemide [Lasix] 40 mg PO BID@0900,1600 30 Days #60 tab methIMAzole [Tapazole] 5 mg PO Q48H 60 Days #30 tab Continue Temazepam [Restoril] 30 mg PO HS Citalopram Hydrobromide [CeleXA] 40 mg PO DAILY Levocetirizine Dihydrochloride [Xyzal] 5 mg PO HS Tamsulosin [Flomax] 0.4 mg PO HS metFORMIN HCL [Glucophage XR] 500 mg PO BID Fluticasone Nasal [place] [Flonase Nasal [place]] 2 spr EA NOSTRIL BID Loratadine-Pseudoeph 10-240 mg [Claritin-D 24 Hour] 1 tab PO DAILY PRN PRN Reason: Allergy Symptoms Dicyclomine [Bentyl] 20 mg PO QID PRN PRN Reason: Gi Upset Diclofenac Sodium Gel [Voltaren Gel] 4 gm TOPICAL TID PRN PRN Reason: Pain Gabapentin 600 mg PO Q8H PRN PRN Reason: Pain Atorvastatin [Lipitor] 10 mg PO DAILY 30 Days #30 tab Omeprazole 40 mg PO BID Discontinued Furosemide [Lasix] 40 mg PO DAILY 30 Days #30 tab Methimazole [Tapazole] 5 mg PO DAILY Discharge Medication List Temazepam [Restoril] 30 mg PO HS 03/05/15 [History] Citalopram Hydrobromide [CeleXA] 40 mg PO DAILY 02/05/16 [History] Levocetirizine Dihydrochloride [Xyzal] 5 mg PO HS 07/13/16 [History] Tamsulosin [Flomax] 0.4 mg PO HS 07/13/16 [History] metFORMIN HCL [Glucophage XR] 500 mg PO BID 11/27/16 [History] Fluticasone Nasal [place] [Flonase Nasal [place]] 2 spr EA NOSTRIL BID 03/26/18 [History] Loratadine-Pseudoeph 10-240 mg [Claritin-D 24 Hour] 1 tab PO DAILY PRN 08/14/19 [History] Dicyclomine [Bentyl] 20 mg PO QID PRN 07/21/20 [History] Diclofenac Sodium Gel [Voltaren Gel] 4 gm TOPICAL TID PRN 01/06/21 [History] Gabapentin 600 mg PO Q8H PRN 03/20/21 [History] Omeprazole 40 mg PO BID 03/20/21 [History] Atorvastatin [Lipitor] 10 mg PO DAILY 30 Days #30 tab 03/25/21 [Rx] Furosemide [Lasix] 40 mg PO BID@0900,1600 30 Days #60 tab 07/08/21 [Rx] methIMAzole [Tapazole] 5 mg PO Q48H 60 Days #30 tab 07/08/21 [Rx] Follow up Appointment(s)/Referral(s): Siria Hastings MD [Primary Care Provider] - 1-2 days Darshan Cerda DO [Doctor of Osteopathic Medicine] - 1 Week Steven Bean MD [STAFF PHYSICIAN] - 1 Week Activity/Diet/Wound Care/Special Instructions: Activity as tolerated Diet heart healthy Discharge Disposition: HOME SELF-CARE
--- NOTE | 2021-07-08 11:52 | P.PN ---
Subjective Progress Note Date: 07/08/21 71-year-old male with a history of CHF, diabetes, and hypertension. The patient presents to the emergency department on July 04, complaining of increasing shortness of breath for 2 weeks, prior to admission. The patient shortness of breath is primarily on exertion, not so much at rest. In addition, the patient noticed increasing abdominal distention, as well as lower extremity edema. He also had a pressure sensation in his chest area. Patient did smoke for 45 years at 1 pack a day. His family care doctor is Dr. Hastings. He does see one of the cardiologists. Currently, he states that he's feeling better. He feels less short of breath. He is currently on 2 L of oxygen, by nasal cannula. I told him he should probably uses oxygen when he sleeping, and when he is exerting himself. He has a concentrator at home, plus a portable device with conserver. He denies a prior history of chronic obstructive pulmonary disease, and probably would benefit from a complete pulmonary function test given his smoking history. Medical history includes diabetes, gastroesophageal reflux disease, impaired hearing, hypertension, DJD, sleep apnea, migraine cephalgia, diverticular disease, kidney stones, diabetic neuropathy, skin cancer, among other things. Family history is positive for unknown type of cancer in his father. Most recent labs include a white count of 11.6, hemoglobin 11.4, hematocrit 36.2, and platelet count 206,000. PT 13.9, INR 1.4, and PTT sodium 140, potassium 4.5, chlorides 96, CO2 32, anion gap 12, BUN 32, and creatinine 1.12. His troponins on admission were 0.155, and 0.154. His N-terminal proBNP was 8330. TSH was 5.1. Urine was negative. Coronavirus testing was negative. Chest x-ray in my opinion was consistent with fluid overload/CHF, and bilateral pleural effusions. Progress note dated 07/07/2021. Currently, the patient appears to be doing better. The patient is currently not on any supplemental oxygen, and not receiving any IV fluids. He was admitted with a diagnosis of shortness of breath secondary to CHF. He also has history of diabetes and hypertension. In addition, he did smoke 45 years at 1 pack a day and may have some underlying COPD. In addition, there was some concern about an abnormal chest x-ray. Looking back, there may be a small nodule in the right lower lobe, which actually may be a nipple shadow on the most recent chest x-ray. A relatively recent CT angiogram, did not show pulmonary embolism, or any pulmonary mass. The patient will need an outpatient evaluation including a complete pulmonary function tests, 6 minute walk distance, and possibly a follow-up computed tomography scan. Clinically, he is feeling much better. Currently, white count 11.4, hemoglobin 12.2, hematocrit 39.7, and platelet count 312,000. Sodium 139, potassium 3.9, chlorides 98, CO2 30, anion gap 11, BUN 40, and creatinine 0.95. Repeat chest x-ray was not done. His last chest x-ray was done on July 04. That has been evaluated. In addition, I did look back at a scan done in the past, including a CT angiogram. The patient is seen today to her 2020 in follow-up on the selective care unit. He is currently sitting up in bed. Awake and alert in no acute distress. Maintaining good O2 saturations in the 90s on room air. He's been afebrile. Hemodynamically stable. Blood glucose 167. He's been transitioned to oral d iuretics. Heparin for DVT prophylaxis. Objective - Vital Signs Vital signs: Vital Signs Temp 97.5 F L 07/08/21 08:00 Pulse 75 07/08/21 08:00 Resp 18 07/08/21 08:00 BP 112/74 07/08/21 08:00 Pulse Ox 93 L 07/08/21 00:00 Intake & Output 07/07/21 07/08/21 07/08/21 18:59 06:59 18:59 Intake Total 1280 Output Total 450 125 Balance 830 -125 Weight 72.8 kg Intake: Oral 1280 Output: Urine 450 125 Other: Voiding Method Urinal Urinal - Exam GENERAL EXAM: Alert, active, 71-year-old gentleman, on room air, comfortable in no apparent distress. HEAD: Normocephalic. EYES: Normal reaction of pupils, equal size. NOSE: Clear with pink turbinates. THROAT: No erythema or exudates. NECK: No masses, no JVD. CHEST: No chest wall deformity. LUNGS: Equal air entry with no crackles, wheeze, rhonchi or dullness. CVS: S1 and S2 normal with no audible murmur, regular rhythm. ABDOMEN: No hepatosplenomegaly, normal bowel sounds, no guarding or rigidity. SPINE: No scoliosis or deformity SKIN: No rashes CENTRAL NERVOUS SYSTEM: No focal deficits, tone is normal in all 4 extremities. EXTREMITIES: There is no peripheral edema. No clubbing, no cyanosis. Peripheral pulses are intact. - Labs CBC & Chem 7: 07/07/21 06:38 07/07/21 06:38 Labs: Abnormal Lab Results - Last 24 Hours (Table) 07/07/21 07/07/21 07/08/21 Range/Units 16:40 20:14 06:16 POC Glucose (mg/dL) 121 H 144 H 167 H (75-99) mg/dL Assessment and Plan Assessment: 1 Progressive shortness of breath, secondary to congestive heart failure. 2 Possible underlying COPD, yet to be determined. Patient needs outpatient PFTs. 3 Prior history of heavy tobacco use. 4 History of skin cancer. 5 History of diabetes mellitus with diabetic neuropathy. 6 History of gastroesophageal reflux disease. 7 History of hypertension. 8 History of ocular migraines. 9 Diverticular disease. 10 History of kidney stones. 11 History of multiple other medical problems and comorbidities. Plan: The patient was seen and evaluated by Dr. Prashant Bundy for discharge from the pulmonary standpoint On room air Follow-up in the office in 1-2 weeks' We will plan for pulmonary function test and 6 minute walk then I, the cosigning physician, performed a history & physical examination of the patient. Lungs sounds are clear. Maintaining good O2 saturations in the 90s on room air. I discussed the assessment and plan of care with my nurse practi Coleen bejarano. I attest to the above note as dictated by her.
[2021-07-08 12:29] LABS: Glucose,Whole Blood 139 mg/dL (75-99)
[2021-07-08 12:47] VITALS: BP 116/76; PULSE 73
--- NOTE | 2021-07-08 14:22 | P.PN ---
Subjective Progress Note Date: 07/08/21 HISTORY OF PRESENT ILLNESS: This is a 71-year-old male with a past medical history significant for diabetes, hypertension, hyperlipidemia, and congestive heart failure. Patient follows in the office with Dr. Brito. We have been asked to see the patient in consultation for non-STEMI, heart failure. Patient examined at the bedside. Patient reports he has been feeling short of breath for the past 2 weeks. He also reports increased lower extremity edema. The patient states he has been having chest pressure for the last 2 days that is intermittent and is mostly with exertion. The patient came to the emergency room for further evaluation. The patient was found to be in congestive heart failure and he was started on IV Lasix. The patient reports improvement in his shortness of breath and his lower extremity edema this morning. She currently denies chest pain or pressure. EKG reveals his mechanism with right bundle branch block. Chest xray bilateral lower lobe infiltrate and small effusion. Could not exclude a pulmonary nodule or nipple shadow at the right lung base. COPD.. Laboratory data: WBC 11.6. Hemoglobin 11.4. Platelet count 306. INR 1.4. Sodium 140. Potassium 4.3. BUN 25. Creatinine 0.84. Troponin 0.147. 0.155. 0.154. ProBNP 8330. Current home cardiac medications include Lipitor 10 mg daily, Lasix 40 mg daily Most recent echocardiogram obtained in February 2021 revealed ejection fraction 60- 65%, mild mitral regurgitation, mild tricuspid regurgitation, and small pleural effusion Cardiac catheterization history: March 2021 revealing normal coronary arteries with minimal and small plaque. Maximum medical therapy was recommended. 07/06/2021 Patient examined this morning at the bedside. Patient denies chest pain or pressure. Patient denies shortness of breath at rest. He does report that he tried to walk to the nurse's station and was extremely winded. He remains on IV Lasix. BUN 32. Creatinine 1.12. Echocardiogram completed revealed ejection fraction 50-55%, basal inferior LV wall hypokinesis, mild mitral regurgitation, and mild tricuspid regurgitation. 07/07/2021 Patient examined this morning at the bedside. He denies shortness of breath. He denies chest pain or pressure. He remains on IV lasix. BUN increased to 40. Patient is ambulating in his room without difficulty. 07/08/2021 Patient examined this morning at the bedside. Patient denies chest pain or pressure. He denies shortness of breath. Patient was transitioned to oral Lasix yesterday. Vital signs are stable. PHYSICAL EXAM: VITAL SIGNS: Reviewed. GENERAL: Well-developed in no acute distress. HEENT: Head is normocephalic. Pupils are equal, round. Sclerae anicteric. Mucous membranes of the mouth are moist. Neck supple. No JVD or thyromegaly LUNGS: Respirations even and unlabored. Lungs diminished bilaterally. HEART: Regular rate and rhythm. S1 and S2 heard. ABDOMEN: Soft. Nondistended. Nontender. EXTREMITIES: Normal range of motion. No clubbing or cyanosis. Peripheral pulses intact. Trace bilateral lower extremity edema NEUROLOGIC: Awake and alert. Oriented x 3. ASSESSMENT: Acute exacerbation of chronic diastolic congestive heart failure, EF 60-65% Abnormal troponins, secondary to CHF, not indicative of acute coronary syndrome Hypertension Hyperlipidemia Diabetes PLAN: continue current cardiac medications Patient is stable for discharge home today from a cardiac standpoint He is follow-up on an outpatient basis Nurse practitioner note has been reviewed by physician. Signing provider agrees with the documented findings, assessment, and plan of care. Objective - Vital Signs Vital signs: Vital Signs Temp 97.5 F L 07/08/21 08:00 Pulse 73 07/08/21 12:00 Resp 18 07/08/21 12:00 BP 116/76 07/08/21 12:00 Pulse Ox 95 07/08/21 12:00 Intake & Output 07/07/21 07/08/21 07/08/21 18:59 06:59 18:59 Intake Total 1280 Output Total 450 175 Balance 830 -175 Weight 72.8 kg Intake: Oral 1280 Output: Urine 450 175 Other: Voiding Method Urinal Urinal - Labs CBC & Chem 7: 07/07/21 06:38 07/07/21 06:38 Labs: Abnormal Lab Results - Last 24 Hours (Table) 07/07/21 07/07/21 07/08/21 Range/Units 16:40 20:14 06:16 POC Glucose (mg/dL) 121 H 144 H 167 H (75-99) mg/dL 07/08/21 Range/Units 12:27 POC Glucose (mg/dL) 139 H (75-99) mg/dL
== END 2021-07-08 12:36 | disposition home or self-care (01) | DRG 293 ==
LOC: EC 15:17 → 3SCARD 18:07
PROVIDERS: ADMIT Internal Medicine; ATTEND Internal Medicine
DX: I11.0 Hypertensive heart disease with heart failure (principal); I50.33 Acute on chronic diastolic (congestive) heart failure; E11.40 Type 2 diabetes mellitus with diabetic neuropathy, unspecified; E78.5 Hyperlipidemia, unspecified; E83.42 Hypomagnesemia; G89.29 Other chronic pain; H91.90 Unspecified hearing loss, unspecified ear; I45.10 Unspecified right bundle-branch block; J44.9 Chronic obstructive pulmonary disease, unspecified; N40.0 Benign prostatic hyperplasia without lower urinary tract symptoms; Z20.822 Contact with and (suspected) exposure to COVID-19; Z79.84 Long term (current) use of oral hypoglycemic drugs; Z79.899 Other long term (current) drug therapy; Z80.9 Family history of malignant neoplasm, unspecified; Z85.3 Personal history of malignant neoplasm of breast; Z85.828 Personal history of other malignant neoplasm of skin; Z87.442 Personal history of urinary calculi; Z87.891 Personal history of nicotine dependence; Z96.652 Presence of left artificial knee joint; Z97.4 Presence of external hearing-aid; F32.9 Major depressive disorder, single episode, unspecified; G43.109 Migraine with aura, not intractable, without status migrainosus; K21.9 Gastro-esophageal reflux disease without esophagitis; M19.90 Unspecified osteoarthritis, unspecified site; M54.5 Low back pain
CPT/HCPCS: 36415; 71046; 80048; 80053; 81001; 83735; 83880; 84443; 84484; 85025; 85610; 85730; 87635; 93005; 93306; 96365; 96366; 96375; 99285

== ENCOUNTER 2021-07-24 18:36 | Inpatient (IN) | payer MEDICARE ==
--- NOTE | 2021-07-24 19:16 | ED ---
General Adult HPI - General Chief complaint: Shortness of Breath Stated complaint: WEAKNESS Time Seen by Provider: 07/24/21 18:48 Source: patient Mode of arrival: EMS Limitations: physical limitation - History of Present Illness Initial comments: 71 year-old male patient presents to the emergency department for evaluation of near syncope and shortness of breath. States that he has been short of breath all day today. States he cannot walk to the bathroom or up his stairs. States that he has been wearing his oxygen, that he uses as needed, all day today and it has not helped. He states he sat down for dinner tonight and felt like he was going to pass out. States he got dizzy and his vision went black. States the feeling persisted so he came in for evaluation. He denies any chest pain. Denies significant cough. Denies increased swelling to the extremities. Denies history of heart attack. Patient denies any recent rash, fever, chills, abdominal pain, nausea, vomiting, diarrhea, constipation, back pain, numbness, tingling, dizziness, weakness, hematuria, dysuria, urinary urgency, urinary frequency, headache, visual changes, or any other complaints. - Related Data Home Medications Medication Instructions Recorded Confirmed Temazepam [Restoril] 30 mg PO HS 03/05/15 07/04/21 Citalopram Hydrobromide [CeleXA] 40 mg PO DAILY 02/05/16 07/04/21 Levocetirizine Dihydrochloride 5 mg PO HS 07/13/16 07/04/21 [Xyzal] Tamsulosin [Flomax] 0.4 mg PO HS 07/13/16 07/04/21 metFORMIN HCL [Glucophage XR] 500 mg PO BID 11/27/16 07/04/21 Fluticasone Nasal [place] [Flonase 2 spr EA NOSTRIL BID 03/26/18 07/04/21 Nasal [place]] Loratadine-Pseudoeph 10-240 mg 1 tab PO DAILY PRN 08/14/19 07/04/21 [Claritin-D 24 Hour] Dicyclomine [Bentyl] 20 mg PO QID PRN 07/21/20 07/04/21 Diclofenac Sodium Gel [Voltaren 4 gm TOPICAL TID PRN 01/06/21 07/04/21 Gel] Gabapentin 600 mg PO Q8H PRN 03/20/21 07/04/21 Omeprazole 40 mg PO BID 03/20/21 07/04/21 Previous Rx's Medication Instructions Recorded Atorvastatin [Lipitor] 10 mg PO DAILY 30 Days #30 tab 03/25/21 Furosemide [Lasix] 40 mg PO BID@0900,1600 30 Days #60 07/08/21 tab methIMAzole [Tapazole] 5 mg PO Q48H 60 Days #30 tab 07/08/21 Allergies Allergy/AdvReac Type Severity Reaction Status Date / Time cephalexin monohydrate Allergy Rash/Hives Verified 07/24/21 19:04 [From Keflex] clarithromycin [From Biaxin] Allergy Unknown Verified 07/24/21 19:04 gentamicin [Gentamicin] Allergy Unknown Verified 07/24/21 19:04 naproxen Allergy Unknown Verified 07/24/21 19:04 Penicillins Allergy Anaphylaxis Verified 07/24/21 19:04 Sulfa (Sulfonamide Allergy Rash/Hives Verified 07/24/21 19:04 Antibiotics) promethazine AdvReac Nausea & Verified 07/24/21 19:04 Vomiting Review of Systems ROS Statement: Those systems with pertinent positive or pertinent negative responses have been documented in the HPI. ROS Other: All systems not noted in ROS Statement are negative. Past Medical History Past Medical History: Cancer, COPD, Diabetes Mellitus, GERD/Reflux, Hearing Disorder / Deafness, Hypertension, Osteoarthritis (OA), Prostate Disorder, Sleep Apnea/CPAP/BIPAP Additional Past Medical History / Comment(s): Optic migraines, diverticulosis, kidney stones, neuropathy hands & feet, low BACK PAIN. 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 CPAP use, bilateral hearing aid use, wears brace on bilateral legs. History of Any Multi-Drug Resistant Organisms: None Reported Date of last positivie culture/infection: none MDRO Source:: none Past Surgical History: Back Surgery, Breast Surgery, Hernia Repair, Joint Replacement Additional Past Surgical History / Comment(s): EGD . Laparoscopic Mireya Fundoplasty, CYSTOSCOPY AND LITHOTRIPSY LEfT URETERAL STENT-SINCE REMOVED. RIGHT BREAST BIOPSY, TOTAL LEFT KNEE REPLACEMENT, LEFT FOOT SURGERY, BILATERAL INGU INAL HERNIA REPAIR, PERCUTANEOUS NEPHROLITHOTOMY, BILATERAL hand surgery, back procedure for nerve endings and cortisone injections, ESOPHGEAL DILATION, eye surgery to remove tumors, LUMPECTOMY RIGHT BREAST. Past Anesthesia/Blood Transfusion Reactions: No Reported Reaction Additional Past Anesthesia/Blood Transfusion Reaction / Comment(s): NEVER HAD ANY BLOOD TRANSFUSIONS. Past Psychological History: No Psychological Hx Reported Smoking Status: Former smoker Past Alcohol Use History: None Reported Past Drug Use History: None Reported - Past Family History Father Family Medical History: Cancer Mother Family Medical History: No Reported History Additional Family Medical History / Comment(s): . General Exam Limitations: physical limitation General appearance: alert, in no apparent distress, other (This is a well- developed, well-nourished adult male patient in no acute distress. ) Eye exam: Present: normal appearance, PERRL, EOMI. Absent: scleral icterus, conjunctival injection, periorbital swelling ENT exam: Present: normal exam, normal oropharynx, mucous membranes moist Respiratory exam: Present: normal lung sounds bilaterally. Absent: respiratory distress, wheezes, rales, rhonchi, stridor Cardiovascular Exam: Present: normal rhythm, bradycardia, normal heart sounds. Absent: systolic murmur, diastolic murmur, rubs, gallop, clicks GI/Abdominal exam: Present: soft, normal bowel sounds. Absent: distended, tenderness, guarding, rebound, rigid Neurological exam: Present: alert, oriented X3, CN II-XII intact Psychiatric exam: Present: normal affect, normal mood Skin exam: Present: warm, dry, intact, normal color. Absent: rash Course Vital Signs 07/24/21 07/24/21 07/24/21 19:02 19:52 20:04 Temperature 97.9 F Pulse Rate 57 L 62 Respiratory 18 20 Rate Blood Pressure 91/68 105/62 Blood Pressure 105/81 [Right Arm Sitting] Blood Pressure 88/53 [Right Arm Standing] Blood Pressure 111/77 [Right Arm Supine] O2 Sat by Pulse 99 96 Oximetry EKG Findings - EKG Comments: EKG Findings:: EKG obtained in 1917 shows sinus bradycardia with marked sinus arrhythmia with first-degree AV block. Right bundle branch block. Ventricular rate is 56, AZ interval 238, QR mormonism 166, QT 512, QTC 494. No evidence of ST elevation or depression. Medical Decision Making - Medical Decision Making 71-year-old male patient presents to the emergency department today for evaluation of dyspnea and near-syncope at home. Physical examination did reveal clear lung sounds. He was markedly bradycardic on telemetry monitoring and EKG. Labs reviewed and did reveal white blood cell count of 15, d-dimer 0.56, sodium 133, lactic acid 2.2, CK-MB 13.6, troponin 1.200. Chest x-ray did show cardiomegaly, pleural reaction at the lung bases which is not new. I did discuss findings and results with the patient. Patient will be started on heparin for NSTEMI. Given aspirin. BP is too low for nitro paste at this time. Case was discussed with Dr. Ramírez. Dr. Villa accepts admission. Case discussed with my attending Dr. Perez. - Lab Data Result diagrams: 07/24/21 19:14 07/24/21 19:14 Lab Results 07/24/21 07/24/21 07/24/21 Range/Units 19:14 19:14 19:14 WBC 15.1 H (3.8-10.6) k/uL RBC 4.36 (4.30-5.90) m/uL Hgb 11.7 L (13.0-17.5) gm/dL Hct 38.1 L (39.0-53.0) % MCV 87.3 (80.0-100.0) fL MCH 26.9 (25.0-35.0) pg MCHC 30.8 L (31.0-37.0) g/dL RDW 20.6 H (11.5-15.5) % Plt Count 376 (150-450) k/uL MPV 9.2 Neutrophils % 77 % Lymphocytes % 14 % Monocytes % 7 % Eosinophils % 0 % Basophils % 0 % Neutrophils # 11.7 H (1.3-7.7) k/uL Lymphocytes # 2.1 (1.0-4.8) k/uL Monocytes # 1.0 (0-1.0) k/uL Eosinophils # 0.0 (0-0.7) k/uL Basophils # 0.0 (0-0.2) k/uL Hypochromasia Moderate Poikilocytosis Moderate Anisocytosis Moderate Microcytosis Slight PT 14.0 H (9.0-12.0) sec INR 1.4 H (<1.2) APTT 21.4 L (22.0-30.0) sec D-Dimer 0.56 (<0.60) mg/L FEU Sodium 133 L (137-145) mmol/L Potassium 4.8 (3.5-5.1) mmol/L Chloride 99 (98-107) mmol/L Carbon Dioxide 23 (22-30) mmol/L Anion Gap 11 mmol/L BUN 32 H (9-20) mg/dL Creatinine 0.88 (0.66-1.25) mg/dL Est GFR (CKD-EPI)AfAm >90 (>60 ml/min/1.73 sqM) Est GFR (CKD-EPI)NonAf 86 (>60 ml/min/1.73 sqM) Glucose 165 H (74-99) mg/dL Plasma Lactic Acid Elvin (0.7-2.0) mmol/L Calcium 9.3 (8.4-10.2) mg/dL Magnesium 1.5 L (1.6-2.3) mg/dL Total Bilirubin 1.3 (0.2-1.3) mg/dL AST 51 (17-59) U/L ALT 52 H (4-49) U/L Alkaline Phosphatase 320 H (38-126) U/L CK-MB (CK-2) (0.0-2.4) ng/mL Troponin I (0.000-0.034) ng/mL Total Protein 6.2 L (6.3-8.2) g/dL Albumin 3.8 (3.5-5.0) g/dL 07/24/21 07/24/21 07/24/21 Range/Units 19:14 19:14 19:40 WBC (3.8-10.6) k/uL RBC (4.30-5.90) m/uL Hgb (13.0-17.5) gm/dL Hct (39.0-53.0) % MCV (80.0-100.0) fL MCH (25.0-35.0) pg MCHC (31.0-37.0) g/dL RDW (11.5-15.5) % Plt Count (150-450) k/uL MPV Neutrophils % % Lymphocytes % % Monocytes % % Eosinophils % % Basophils % % Neutrophils # (1.3-7.7) k/uL Lymphocytes # (1.0-4.8) k/uL Monocytes # (0-1.0) k/uL Eosinophils # (0-0.7) k/uL Basophils # (0-0.2) k/uL Hypochromasia Poikilocytosis Anisocytosis Microcytosis PT (9.0-12.0) sec INR (<1.2) APTT (22.0-30.0) sec D-Dimer (<0.60) mg/L FEU Sodium (137-145) mmol/L Potassium (3.5-5.1) mmol/L Chloride (98-107) mmol/L Carbon Dioxide (22-30) mmol/L Anion Gap mmol/L BUN (9-20) mg/dL Creatinine (0.66-1.25) mg/dL Est GFR (CKD-EPI)AfAm (>60 ml/min/1.73 sqM) Est GFR (CKD-EPI)NonAf (>60 ml/min/1.73 sqM) Glucose (74-99) mg/dL Plasma Lactic Acid Elvin 2.2 H* (0.7-2.0) mmol/L Calcium (8.4-10.2) mg/dL Magnesium (1.6-2.3) mg/dL Total Bilirubin (0.2-1.3) mg/dL AST (17-59) U/L ALT (4-49) U/L Alkaline Phosphatase (38-126) U/L CK-MB (CK-2) 13.6 H (0.0-2.4) ng/mL Troponin I 1.200 H* (0.000-0.034) ng/mL Total Protein (6.3-8.2) g/dL Albumin (3.5-5.0) g/dL - Radiology Data Radiology results: report reviewed, image reviewed Disposition Clinical Impression: NSTEMI (non-ST elevated myocardial infarction), Bradycardia, Hypotension Disposition: ADMITTED IP TO THIS [facility] Condition: Serious Referrals: Siria Hastings MD [Primary Care Provider] - 1-2 days Decision to Admit Reason: Admit from EC Decision Date: 07/24/21 Decision Time: 21:07
[2021-07-24 19:47] LABS: Anisocytosis Moderate; Basophils % (A) 0 %; Eosinophils % (A) 0 %; HCT 38.1 % (39.0-53.0); HGB 11.7 gm/dL (13.0-17.5); Hypochromasia Moderate; Lymphocytes # (A) 2.1 k/uL (1.0-4.8); Lymphocytes % (A) 14 %; MCH 26.9 pg (25.0-35.0); MCHC 30.8 g/dL (31.0-37.0); MCV 87.3 fL (80.0-100.0); Mean Platelet Volume 9.2; Microcytosis Slight; Monocytes % (A) 7 %; Neutrophils # (A) 11.7 k/uL (1.3-7.7); Neutrophils % (A) 77 %; Platelet Count 376 k/uL (150-450); Poikilocytosis Moderate; RBC 4.36 m/uL (4.30-5.90); RDW 20.6 % (11.5-15.5); WBC 15.1 k/uL (3.8-10.6)
[2021-07-24 19:57] LABS: ALT 52 U/L (4-49); AST 51 U/L (17-59); African American GFR (CKD) >90 (>60 ml/min/1.73 sqM); Albumin 3.8 g/dL (3.5-5.0); Alkaline Phosphatase 320 U/L (38-126); Anion Gap 11 mmol/L; Blood Urea Nitrogen 32 mg/dL (9-20); Calcium 9.3 mg/dL (8.4-10.2); Carbon Dioxide 23 mmol/L (22-30); Chloride 99 mmol/L (98-107); Glucose 165 mg/dL (74-99); Magnesium 1.5 mg/dL (1.6-2.3); Non-African American GFR(CKD) 86 (>60 ml/min/1.73 sqM); Potassium 4.8 mmol/L (3.5-5.1); Sodium 133 mmol/L (137-145); Total Bilirubin 1.3 mg/dL (0.2-1.3); Total Protein 6.2 g/dL (6.3-8.2)
[2021-07-24 20:03] LABS: INR 1.4 (<1.2)
--- NOTE | 2021-07-24 20:18 | XR ---
EXAMINATION TYPE: XR chest 2V DATE OF EXAM: 07/24/2021 COMPARISON: 1120 HISTORY: Wrist pain TECHNIQUE: 2 views FINDINGS: Heart is enlarged. There is no gross heart failure. There is some coarsening of the lung ma rkings. There is minimal blunting of the costophrenic angles. IMPRESSION: Mild pleural reaction at the lung bases. There is improvement in the pulmonary vascularit y and clearing of most of the pleural fluid compared to last exam.
[2021-07-24 20:20] LABS: Partial Thromboplastin Time 21.4 sec (22.0-30.0)
[2021-07-24] MEDS ORDERED: HEPARIN SODIUM 1,000 UN/ML (10ML VL) IV PRN (20:23)
[2021-07-24] MEDS ORDERED: HEPARIN SODIUM 1,000 UN/ML (10ML VL) IV ONE (20:23)
[2021-07-24] MEDS ORDERED: HEPARIN SOD,PORK IN 0.45% NACL 25,000 UNIT in 0.45% NACL 1 250ML.BAG IV SCH (20:30)
[2021-07-24] MEDS ORDERED: ASPIRIN 81 MG PO STA (20:36)
[2021-07-24] MEDS ORDERED: NITROGLYCERIN OINT 1 INCH/GM PACKET TOPICAL STA (20:37)
[2021-07-24] MEDS ORDERED: MAGNESIUM SULFATE-D5W PMX 1 GM in DEXTROSE/WATER 1 100ML.BAG IVPB ONE (20:38)
[2021-07-24] MEDS ORDERED: NALOXONE 0.4 MG/ML 1 ML VIAL IV PRN (20:56)
[2021-07-24] MEDS ORDERED: ONDANSETRON 4 MG/2 ML VIAL IVP PRN (20:56)
--- NOTE | 2021-07-24 21:09 | ED ---
Medical Decision Making - Lab Data Result diagrams: 07/24/21 19:14 07/24/21 19:14 Lab Results 07/24/21 07/24/21 07/24/21 Range/Units 19:14 19:14 19:14 WBC 15.1 H (3.8-10.6) k/uL RBC 4.36 (4.30-5.90) m/uL Hgb 11.7 L (13.0-17.5) gm/dL Hct 38.1 L (39.0-53.0) % MCV 87.3 (80.0-100.0) fL MCH 26.9 (25.0-35.0) pg MCHC 30.8 L (31.0-37.0) g/dL RDW 20.6 H (11.5-15.5) % Plt Count 376 (150-450) k/uL MPV 9.2 Neutrophils % 77 % Lymphocytes % 14 % Monocytes % 7 % Eosinophils % 0 % Basophils % 0 % Neutrophils # 11.7 H (1.3-7.7) k/uL Lymphocytes # 2.1 (1.0-4.8) k/uL Monocytes # 1.0 (0-1.0) k/uL Eosinophils # 0.0 (0-0.7) k/uL Basophils # 0.0 (0-0.2) k/uL Hypochromasia Moderate Poikilocytosis Moderate Anisocytosis Moderate Microcytosis Slight PT 14.0 H (9.0-12.0) sec INR 1.4 H (<1.2) APTT 21.4 L (22.0-30.0) sec D-Dimer 0.56 (<0.60) mg/L FEU Sodium 133 L (137-145) mmol/L Potassium 4.8 (3.5-5.1) mmol/L Chloride 99 (98-107) mmol/L Carbon Dioxide 23 (22-30) mmol/L Anion Gap 11 mmol/L BUN 32 H (9-20) mg/dL Creatinine 0.88 (0.66-1.25) mg/dL Est GFR (CKD-EPI)AfAm >90 (>60 ml/min/1.73 sqM) Est GFR (CKD-EPI)NonAf 86 (>60 ml/min/1.73 sqM) Glucose 165 H (74-99) mg/dL Plasma Lactic Acid Elvin (0.7-2.0) mmol/L Calcium 9.3 (8.4-10.2) mg/dL Magnesium 1.5 L (1.6-2.3) mg/dL Total Bilirubin 1.3 (0.2-1.3) mg/dL AST 51 (17-59) U/L ALT 52 H (4-49) U/L Alkaline Phosphatase 320 H (38-126) U/L CK-MB (CK-2) (0.0-2.4) ng/mL Troponin I (0.000-0.034) ng/mL Total Protein 6.2 L (6.3-8.2) g/dL Albumin 3.8 (3.5-5.0) g/dL 07/24/21 07/24/21 07/24/21 Range/Units 19:14 19:14 19:40 WBC (3.8-10.6) k/uL RBC (4.30-5.90) m/uL Hgb (13.0-17.5) gm/dL Hct (39.0-53.0) % MCV (80.0-100.0) fL MCH (25.0-35.0) pg MCHC (31.0-37.0) g/dL RDW (11.5-15.5) % Plt Count (150-450) k/uL MPV Neutrophils % % Lymphocytes % % Monocytes % % Eosinophils % % Basophils % % Neutrophils # (1.3-7.7) k/uL Lymphocytes # (1.0-4.8) k/uL Monocytes # (0-1.0) k/uL Eosinophils # (0-0.7) k/uL Basophils # (0-0.2) k/uL Hypochromasia Poikilocytosis Anisocytosis Microcytosis PT (9.0-12.0) sec INR (<1.2) APTT (22.0-30.0) sec D-Dimer (<0.60) mg/L FEU Sodium (137-145) mmol/L Potassium (3.5-5.1) mmol/L Chloride (98-107) mmol/L Carbon Dioxide (22-30) mmol/L Anion Gap mmol/L BUN (9-20) mg/dL Creatinine (0.66-1.25) mg/dL Est GFR (CKD-EPI)AfAm (>60 ml/min/1.73 sqM) Est GFR (CKD-EPI)NonAf (>60 ml/min/1.73 sqM) Glucose (74-99) mg/dL Plasma Lactic Acid Elvin 2.2 H* (0.7-2.0) mmol/L Calcium (8.4-10.2) mg/dL Magnesium (1.6-2.3) mg/dL Total Bilirubin (0.2-1.3) mg/dL AST (17-59) U/L ALT (4-49) U/L Alkaline Phosphatase (38-126) U/L CK-MB (CK-2) 13.6 H (0.0-2.4) ng/mL Troponin I 1.200 H* (0.000-0.034) ng/mL Total Protein (6.3-8.2) g/dL Albumin (3.5-5.0) g/dL Critical Care Time Critical Care Time: Yes Total Critical Care Time: 35 (NSTEMI; evaluation of vital signs, EKG, Xray results. Consults with specialists. Ordering medications, patient evaluation and re-evaluation.) Disposition Clinical Impression: NSTEMI (non-ST elevated myocardial infarction), Bradycardia, Hypotension Disposition: ADMITTED IP TO THIS [facility] Condition: Serious Referrals: Siria Hastings MD [Primary Care Provider] - 1-2 days Procedures - [place] Protocol (Time Out) Nurse: Trinity Chowdhury
[2021-07-24 22:56] LABS: Glucose,Whole Blood 148 mg/dL (75-99)
[2021-07-24] MEDS ORDERED: DICYCLOMINE 20 MG TAB PO PRN (23:45)
[2021-07-25] MEDS: IBUPROFEN 800 MG TAB PO PRN (00:16)
[2021-07-25] MEDS: TAMSULOSIN 0.4 MG CAP.ER.24H PO SCH ×2 (00:20→20:13)
[2021-07-25 03:48] LABS: Anisocytosis Moderate; Basophils # (A) 0.1 k/uL (0-0.2); Basophils % (A) 0 %; Eosinophils # (A) 0.1 k/uL (0-0.7); Eosinophils % (A) 1 %; HCT 36.1 % (39.0-53.0); HGB 10.9 gm/dL (13.0-17.5); Hypochromasia Moderate; Lymphocytes # (A) 3.3 k/uL (1.0-4.8); Lymphocytes % (A) 22 %; MCH 26.7 pg (25.0-35.0); MCHC 30.3 g/dL (31.0-37.0); MCV 88.1 fL (80.0-100.0); Mean Platelet Volume 9.6; Microcytosis Slight; Monocytes # (A) 1.3 k/uL (0-1.0); Monocytes % (A) 9 %; Neutrophils # (A) 10.1 k/uL (1.3-7.7); Neutrophils % (A) 66 %; Platelet Count 338 k/uL (150-450); Poikilocytosis Moderate; RBC 4.09 m/uL (4.30-5.90); RDW 20.5 % (11.5-15.5); WBC 15.3 k/uL (3.8-10.6)
[2021-07-25 04:00] LABS: INR 1.5 (<1.2); Partial Thromboplastin Time 87.1 sec (22.0-30.0); Prothrombin Time 15.5 sec (9.0-12.0)
[2021-07-25] MEDS: DICLOFENAC SODIUM GEL 100 GM TUBE TOPICAL PRN (04:10)
[2021-07-25] MEDS: MORPHINE SULFATE 2 MG/ML SYRINGE IVP PRN ×3 (06:13→20:14)
[2021-07-25 06:18] LABS: Glucose,Whole Blood 131 mg/dL (75-99)
[2021-07-25] MEDS ORDERED: SPIRONOLACTONE 25 MG TAB PO SCH (09:00)
[2021-07-25] MEDS ORDERED: FUROSEMIDE 40 MG TAB PO SCH (09:00)
[2021-07-25] MEDS ORDERED: LORATADINE-PSEUDOEPH 5-120 MG 1 EACH TAB.ER.12H PO PRN (09:00)
[2021-07-25] MEDS: methIMAzole 5 MG TAB PO SCH (09:33)
[2021-07-25] MEDS: FLUTICASONE 50MCG/SPRAY NASAL 16GM EA NOSTRIL SCH ×2 (09:33→20:17)
[2021-07-25] MEDS: METOPROLOL TARTRATE 25 MG TAB PO SCH ×2 (09:33→20:13)
[2021-07-25] MEDS: predniSONE 10 MG TAB PO SCH (09:33)
[2021-07-25] MEDS: PANTOPRAZOLE 40 MG TABLET PO SCH ×2 (09:33→20:13)
[2021-07-25] MEDS: CITALOPRAM HYDROBROMIDE 20 MG TAB PO SCH (09:33)
[2021-07-25] MEDS: ATORVASTATIN 10 MG TAB PO SCH (09:33)
[2021-07-25] MEDS: FUROSEMIDE 10 MG/ML 4 ML VIAL IV SCH ×2 (11:27→20:14)
[2021-07-25 11:44] LABS: Glucose,Whole Blood 213 mg/dL (75-99)
[2021-07-25] MEDS: ISOSORBIDE MONONITRATE ER 30 MG TAB.ER.24H PO SCH (11:56)
[2021-07-25] MEDS: ASPIRIN 81 MG PO SCH (11:56)
[2021-07-25] MEDS: metFORMIN 500 MG TAB PO SCH ×2 (11:56→20:17)
[2021-07-25] MEDS: GABAPENTIN 300 MG CAP PO PRN (11:57)
--- NOTE | 2021-07-25 13:17 | P.CRDCN ---
History of Present Illness Consult date: 07/25/21 History of present illness: HISTORY OF PRESENT ILLNESS: This is a 71-year-old male with a past medical history significant for diabetes, hypertension, hyperlipidemia, and congestive heart failure. Patient follows in the office with Dr. Young. We have been asked to see the patient in consultation for abnormal troponins. Patient examined at the bedside. Patient was recently admitted to [facility] a few weeks ago for CHF. He states he was doing well post discharge until a couple days ago when he became short of breath. He reports having shortness of breath when walking around his house and climbing a flight of stairs to get the bathroom. He also reports mild chest pressure over the past two days with no other associated symptoms. The pain is not worse with deep inspiration or chest wall palpation. At the time of examination, the patient denies chest pain or pressure. EKG reveals sinus mechanism with right bundle branch block. No evidence of acute ischemia. Chest xray mild pleural reaction the lung bases. There is improvement in the pulmonary vascularity and clearing of most of the pleural fluid compared to last exam. Laboratory data: WBC 15.3. Hemoglobin 10.9. Platelet count 338. D-dimer 0.56. Sodium 133. Potassium 4.8. BUN 32. Creatinine 0.8. Lactic acid 2.2. Troponin 1.200. 1.370. 1.410. ProBNP 12,500 Current home cardiac medications include spironolactone 12.5 mg daily, metoprolol tartrate 25 mg twice a day, Lasix 40 mg twice a day, Lipitor 10 mg daily Most recent echocardiogram obtained in June 2021 revealed ejection fraction 50-55%, basal inferior LV wall hypokinesis, mild mitral regurgitation, mild tricuspid regurgitation. Previous echocardiogram completed in February 2021 revealed ejection fraction 60- 65%. Cardiac catheterization history: March 2021 revealing normal coronary arteries with minimal intimal plaque. Maximum medical therapy was recommended. REVIEW OF SYSTEMS: At the time of my exam: CONSTITUTIONAL: Denies fever or chills. HEENT: Denies blurred vision, vision changes, or eye pain. Denies hemoptysis CARDIOVASCULAR: Denies chest pain. Denies orthopnea. Denies PND. Denies palpitations RESPIRATORY: + shortness of breath. GASTROINTESTINAL: Denies abdominal pain. Denies nausea or vomiting. HEMATOLOGIC: Denies bleeding disorders. GENITOURINARY: Denies any blood in urine. SKIN: Denies pruitis. Denies rash. PHYSICAL EXAM: VITAL SIGNS: Reviewed. GENERAL: Well-developed in no acute distress. HEENT: Head is normocephalic. Pupils are equal, round. Sclerae anicteric. Mucous membranes of the mouth are moist. Neck supple. No JVD or thyromegaly LUNGS: Respirations even and unlabored. Lungs diminished to auscultation bilaterally. HEART: Regular rate and rhythm. S1 and S2 heard. ABDOMEN: Soft. Nondistended. Nontender. EXTREMITIES: Normal range of motion. No clubbing or cyanosis. Peripheral pulses intact. Trace lower extremity edema NEUROLOGIC: Awake and alert. Oriented x 3. 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 Signing provider agrees with the documented findings, assessment, and plan of care. Past Medical History Past Medical History: Cancer, COPD, Diabetes Mellitus, GERD/Reflux, Hearing Disorder / Deafness, Hypertension, Osteoarthritis (OA), Prostate Disorder, Sleep Apnea/CPAP/BIPAP Additional Past Medical History / Comment(s): Optic migraines, diverticulosis, kidney stones, neuropathy hands & feet, low BACK PAIN. 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 CPAP use, bilateral hearing aid use, wears brace on bilateral legs. History of Any Multi-Drug Resistant Organisms: None Reported Date of last positivie culture/infection: none MDRO Source:: none Past Surgical History: Back Surgery, Breast Surgery, Hernia Repair, Joint Replacement Additional Past Surgical History / Comment(s): EGD . Laparoscopic Mireya Fundoplasty, CYSTOSCOPY AND LITHOTRIPSY LEfT URETERAL STENT-SINCE REMOVED. RIGHT BREAST BIOPSY, TOTAL LEFT KNEE REPLACEMENT, LEFT FOOT SURGERY, BILATERAL INGUINAL HERNIA REPAIR, PERCUTANEOUS NEPHROLITHOTOMY, BILATERAL hand surgery, back procedure for nerve endings and cortisone injections, ESOPHGEAL DILATION, eye surgery to remove tumors, LUMPECTOMY RIGHT BREAST. Past Anesthesia/Blood Transfusion Reactions: No Reported Reaction Additional Past Anesthesia/Blood Transfusion Reaction / Comment(s): NEVER HAD ANY BLOOD TRANSFUSIONS. Past Psychological History: No Psychological Hx Reported Additional Psychological History / Comment(s): . Smoking Status: Former smoker Past Alcohol Use History: None Reported Additional Past Alcohol Use History / Comment(s): STARTED SMOKING AT AGE 12, SMOKED 1 PPD, QUIT 2012. Past Drug Use History: None Reported - Past Family History Father Family Medical History: Cancer Mother Family Medical History: No Reported History Additional Family Medical History / Comment(s): . Medications and Allergies Home Medications Medication Instructions Recorded Confirmed Type Temazepam [Restoril] 30 mg PO HS 03/05/15 07/24/21 History Citalopram Hydrobromide [CeleXA] 40 mg PO DAILY 02/05/16 07/24/21 History Levocetirizine Dihydrochloride 5 mg PO HS 07/13/16 07/24/21 History [Xyzal] Tamsulosin [Flomax] 0.4 mg PO HS 07/13/16 07/24/21 History metFORMIN HCL [Glucophage XR] 500 mg PO BID 11/27/16 07/24/21 History Fluticasone Nasal Gardiner [Flonase 2 spr EA NOSTRIL BID 03/26/18 07/24/21 History Nasal Gardiner] Loratadine-Pseudoeph 10-240 mg 1 tab PO DAILY PRN 08/14/19 07/24/21 History [Claritin-D 24 Hour] Dicyclomine [Bentyl] 20 mg PO QID PRN 07/21/20 07/24/21 History Diclofenac Sodium Gel [Voltaren 4 gm TOPICAL TID PRN 01/06/21 07/24/21 History Gel] Gabapentin 600 mg PO Q8H PRN 03/20/21 07/24/21 History Omeprazole 40 mg PO BID 03/20/21 07/24/21 History Atorvastatin [Lipitor] 10 mg PO DAILY 30 Days #30 tab 03/25/21 07/24/21 Rx Furosemide [Lasix] 40 mg PO BID@0900,1600 30 Days #60 07/08/21 07/24/21 Rx tab methIMAzole [Tapazole] 5 mg PO Q48H 60 Days #30 tab 07/08/21 07/24/21 Rx Ibuprofen [Motrin] 800 mg PO TID PRN 07/24/21 07/24/21 History Metoprolol Tartrate [Lopressor] 25 mg PO BID 07/24/21 07/24/21 History Spironolactone 12.5 mg PO DAILY 07/24/21 07/24/21 History predniSONE 10 mg PO DAILY 07/24/21 07/24/21 History Allergies Allergy/AdvReac Type Severity Reaction Status Date / Time cephalexin monohydrate Allergy Rash/Hives Verified 07/24/21 21:54 [From Keflex] clarithromycin [From Biaxin] Allergy Unknown Verified 07/24/21 21:54 gentamicin [Gentamicin] Allergy Unknown Verified 07/24/21 21:54 naproxen Allergy Unknown Verified 07/24/21 21:54 Penicillins Allergy Anaphylaxis Verified 07/24/21 21:54 Sulfa (Sulfonamide Allergy Rash/Hives Verified 07/24/21 21:54 Antibiotics) promethazine AdvReac Nausea & Verified 07/24/21 21:54 Vomiting Physical Exam Vitals: Vital Signs Temp Pulse Pulse Resp BP BP BP 07/25/21 08:00 98.2 F 66 16 07/25/21 03:10 98.2 F 73 18 07/24/21 23:46 98.1 F 70 18 07/24/21 22:13 62 20 102/63 07/24/21 21:28 67 22 103/70 07/24/21 20:04 62 20 105/62 07/24/21 19:52 105/81 88/53 07/24/21 19:02 97.9 F 57 L 18 91/68 BP Pulse Ox 07/25/21 08:00 102/66 96 07/25/21 03:10 99/60 98 07/24/21 23:46 108/75 98 07/24/21 22:13 99 07/24/21 21:28 99 07/24/21 20:04 96 07/24/21 19:52 111/77 07/24/21 19:02 99 Intake and Output 07/24/21 07/25/21 07/25/21 22:59 06:59 14:59 Intake Total 100 65.949 36.6 Output Total 250 100 Balance -150 -34.051 36.6 Intake: Intake, IV Titration 65.949 36.6 Amount Heparin Sod,Pork in 0.45% 65.949 36.6 NaCl 25,000 unit In 0.45 % NaCl 1 250ml.bag @ 12 UNITS/KG/HR 8.872 mls/hr IV .Q24H [facility] Rx#: [id number] Oral 100 Output: Urine 250 100 Other: Voiding Method Toilet Toilet Urinal Urinal # Voids 1 Weight 73.936 kg 78.9 kg Results 07/25/21 03:34 07/24/21 19:14 Cardiac Enzymes 07/24/21 07/24/21 07/24/21 Range/Units 19:14 19:14 19:40 AST 51 (17-59) U/L CK-MB (CK-2) 13.6 H (0.0-2.4) ng/mL Troponin I 1.200 H* (0.000-0.034) ng/mL 07/24/21 07/25/21 Range/Units 22:01 00:31 AST (17-59) U/L CK-MB (CK-2) (0.0-2.4) ng/mL Troponin I 1.370 H* 1.410 H* (0.000-0.034) ng/mL Coagulation 07/24/21 07/25/21 07/25/21 Range/Units 19:14 03:34 07:17 PT 14.0 H 15.5 H (9.0-12.0) sec APTT 21.4 L 87.1 H 69.0 H (22.0-30.0) sec CBC 07/24/21 07/25/21 Range/Units 19:14 03:34 WBC 15.1 H 15.3 H (3.8-10.6) k/uL RBC 4.36 4.09 L (4.30-5.90) m/uL Hgb 11.7 L 10.9 L (13.0-17.5) gm/dL Hct 38.1 L 36.1 L (39.0-53.0) % Plt Count 376 338 (150-450) k/uL Comprehensive Metabolic Panel 07/24/21 Range/Units 19:14 Sodium 133 L (137-145) mmol/L Potassium 4.8 (3.5-5.1) mmol/L Chloride 99 (98-107) mmol/L Carbon Dioxide 23 (22-30) mmol/L BUN 32 H (9-20) mg/dL Creatinine 0.88 (0.66-1.25) mg/dL Glucose 165 H (74-99) mg/dL Calcium 9.3 (8.4-10.2) mg/dL AST 51 (17-59) U/L ALT 52 H (4-49) U/L Alkaline Phosphatase 320 H (38-126) U/L Total Protein 6.2 L (6.3-8.2) g/dL Albumin 3.8 (3.5-5.0) g/dL Current Medications Generic Name Dose Route Start Last Admin Trade Name Freq PRN Reason Stop Dose Admin Aspirin 81 mg 07/25/21 10:00 07/25/21 11:56 Aspirin 81 Mg PO 81 mg DAILY NILS Administration Atorvastatin Calcium 10 mg 07/25/21 09:00 07/25/21 09:33 Atorvastatin 10 Mg Tab PO 10 mg DAILY NILS Administration Citalopram Hydrobromide 40 mg 07/25/21 09:00 07/25/21 09:33 Citalopram Hydrobromide 20 Mg Tab PO 40 mg DAILY NILS Administration Diclofenac Sodium 4 gm 07/25/21 00:00 07/25/21 04:10 Diclofenac Sodium Gel 100 Gm Tube TOPICAL 4 gm TID PRN Administration Pain Protocol Dicyclomine HCl 20 mg 07/24/21 23:45 07/25/21 06:09 Dicyclomine 20 Mg Tab PO 20 mg QID PRN Administration GI Upset Fluticasone Propionate 2 spray 07/25/21 09:00 07/25/21 09:33 Fluticasone 50mcg/Gardiner Nasal 16gm EA NOSTRIL 2 spray BID NILS Administration Furosemide 40 mg 07/25/21 10:45 07/25/21 11:27 Furosemide 10 Mg/Ml 4 Ml Vial IV Not Given Q12HR NILS Gabapentin 600 mg 07/25/21 00:00 07/25/21 11:57 Gabapentin 300 Mg Cap PO 600 mg Q8H PRN Administration Pain Heparin Sodium (Porcine) 0 unit 07/24/21 20:23 Heparin Sodium 1,000 Un/Ml (10ml Vl) IV PER PROTOCOL PRN Low PTT Protocol Ibuprofen 800 mg 07/25/21 00:00 11/01/21 00:16 Ibuprofen 800 Mg Tab PO 800 mg TID PRN Administration Pain Isosorbide Mononitrate 30 mg 07/25/21 10:45 07/25/21 11:56 Isosorbide Mononitrate Er 30 Mg Tab.Er.24h PO 30 mg DAILY NILS Administration Loratadine 10 mg 07/25/21 21:00 Loratadine 10 Mg Tab PO HS NILS Loratadine/Pseudoephedrine Sulfate 1 each 07/25/21 09:00 Loratadine-Pseudoeph 5-120 Mg 1 Each Tab.Er.12h PO Q12H PRN Allergy Symptoms Metformin HCl 500 mg 07/25/21 09:00 07/25/21 11:56 Metformin 500 Mg Tab PO 500 mg BID NILS Administration Methimazole 5 mg 07/25/21 09:00 07/25/21 09:33 Methimazole 5 Mg Tab PO 5 mg Q48H NILS Administration Metoprolol Tartrate 25 mg 07/25/21 09:00 07/25/21 09:33 Metoprolol Tartrate 25 Mg Tab PO 25 mg BID NILS Administration Morphine Sulfate 1 mg 07/25/21 06:10 07/25/21 06:13 Morphine Sulfate 2 Mg/Ml Syringe IVP 1 mg Q6HR PRN Administration Moderate to Severe Pain Naloxone HCl 0.2 mg 07/24/21 20:56 Naloxone 0.4 Mg/Ml 1 Ml Vial IV Q2M PRN Opioid Reversal Ondansetron HCl 4 mg 07/24/21 20:56 07/25/21 06:04 Ondansetron 4 Mg/2 Ml Vial IVP 4 mg Q8HR PRN Administration Nausea And Vomiting Pantoprazole Sodium 40 mg 07/25/21 09:00 07/25/21 09:33 Pantoprazole 40 Mg Tablet PO 40 mg BID NILS Administration Prednisone 10 mg 07/25/21 09:00 07/25/21 09:33 Prednisone 10 Mg Tab PO 10 mg DAILY NILS Administration Tamsulosin HCl 0.4 mg 07/25/21 00:00 07/25/21 00:20 Tamsulosin 0.4 Mg Cap.Er.24h PO 0.4 mg HS NILS Administration Temazepam 30 mg 07/25/21 21:00 Temazepam 15 Mg Cap PO HS NILS Intake and Output 07/24/21 07/25/2121 22:59 06:59 14:59 Intake Total 100 65.949 36.6 Output Total 250 100 Balance -150 -34.051 36.6 Intake: Intake, IV Titration 65.949 36.6 Amount Heparin Sod,Pork in 0.45% 65.949 36.6 NaCl 25,000 unit In 0.45 % NaCl 1 250ml.bag @ 12 UNITS/KG/HR 8.872 mls/hr IV .Q24H [facility] Rx#: [id number] Oral 100 Output: Urine 250 100 Other: Voiding Method Toilet Toilet Urinal Urinal # Voids 1 Weight 73.936 kg 78.9 kg 07/25/21 03:34 07/24/21 19:14
[2021-07-25 13:42] VITALS: BMI 27.2
[2021-07-25 16:30] LABS: Glucose,Whole Blood 219 mg/dL (75-99)
--- NOTE | 2021-07-25 18:56 | P.HPIM ---
History of Present Illness H&P Date: 07/25/21 Gaetano Lorenz, is a year old male who presented to [facility] emergency room with a chief complaint of dizziness near syncope and shortness of breath. He was evaluated in the emergency room vital examination on presentation revealed a temperature of 97.9 pulse 57 respiration 18 blood pressure 91/68 pulse ox 99% on room air. Laboratory data revealed a white blood count of 15.1 hemoglobin 11.7 platelet count 376 sodium 133 BUN 32 creatinine 0.88 glucose 165 lactic acid 2.2 troponin level 1.2 coronary 5PCR was negative Testing in the emergency room revealed EKG revealed sinus bradycardia with first-degree AV block and right bundle branch block, chest x-ray revealed mild pleural reaction at the lung bases. Patient was admitted to medical floor for further evaluation and treatment Past medical history is significant for chronic diastolic congestive heart failure, underlying history of COPD with chronic hypoxic respiratory failure requiring home oxygen use, underlying history of hypertension, underlying history of degenerative disc disease with chronic back pain On review of systems Patient was seen and examined on the medical floor, he is alert and oriented x 3 in no distress, he denies any complaints there is no fever or chills no headache or dizziness no chest pain no shortness of breath no palpitation no cough no nausea or vomiting no abdominal pain no diarrhea no blood in the stools no burning with urination no frequency or urgency and no hematuria, there is no weakness or numbness in any of the extremities no change in vision speech or gait. Past Medical History Past Medical History: Cancer, COPD, Diabetes Mellitus, GERD/Reflux, Hearing Disorder / Deafness, Hypertension, Osteoarthritis (OA), Prostate Disorder, Sleep Apnea/CPAP/BIPAP Additional Past Medical History / Comment(s): Optic migraines, diverticulosis, kidney stones, neuropathy hands & feet, low BACK PAIN. 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 CPAP use, bilateral hearing aid use, wears brace on bilateral legs. History of Any Multi-Drug Resistant Organisms: None Reported Date of last positivie culture/infection: none MDRO Source:: none Past Surgical History: Back Surgery, Breast Surgery, Hernia Repair, Joint Replacement Additional Past Surgical History / Comment(s): EGD . Laparoscopic Mireya Fundoplasty, CYSTOSCOPY AND LITHOTRIPSY LEfT URETERAL STENT-SINCE REMOVED. RIGHT BREAST BIOPSY, TOTAL LEFT KNEE REPLACEMENT, LEFT FOOT SURGERY, BILATERAL INGUINAL HERNIA REPAIR, PERCUTANEOUS NEPHROLITHOTOMY, BILATERAL hand surgery, back procedure for nerve endings and cortisone injections, ESOPHGEAL DILATION, eye surgery to remove tumors, LUMPECTOMY RIGHT BREAST. Past Anesthesia/Blood Transfusion Reactions: No Reported Reaction Additional Past Anesthesia/Blood Transfusion Reaction / Comment(s): NEVER HAD ANY BLOOD TRANSFUSIONS. Past Psychological History: No Psychological Hx Reported Additional Psychological History / Comment(s): . Smoking Status: Former smoker Past Alcohol Use History: None Reported Additional Past Alcohol Use History / Comment(s): STARTED SMOKING AT AGE 12, SMOKED 1 PPD, QUIT 2012. Past Drug Use History: None Reported - Past Family History Father Family Medical History: Cancer Mother Family Medical History: No Reported History Additional Family Medical History / Comment(s): . Medications and Allergies Home Medications Medication Instructions Recorded Confirmed Type Temazepam [Restoril] 30 mg PO HS 03/05/15 07/24/21 History Citalopram Hydrobromide [CeleXA] 40 mg PO DAILY 02/05/16 07/24/21 History Levocetirizine Dihydrochloride 5 mg PO HS 07/13/16 07/24/21 History [Xyzal] Tamsulosin [Flomax] 0.4 mg PO HS 07/13/16 07/24/21 History metFORMIN HCL [Glucophage XR] 500 mg PO BID 11/27/16 07/24/21 History Fluticasone Nasal Swan [Flonase 2 spr EA NOSTRIL BID 03/26/18 07/24/21 History Nasal Swan] Loratadine-Pseudoeph 10-240 mg 1 tab PO DAILY PRN 08/14/19 07/24/21 History [Claritin-D 24 Hour] Dicyclomine [Bentyl] 20 mg PO QID PRN 07/21/20 07/24/21 History Diclofenac Sodium Gel [Voltaren 4 gm TOPICAL TID PRN 01/06/21 07/24/21 History Gel] Gabapentin 600 mg PO Q8H PRN 03/20/21 07/24/21 History Omeprazole 40 mg PO BID 03/20/21 07/24/21 History Atorvastatin [Lipitor] 10 mg PO DAILY 30 Days #30 tab 03/25/21 07/24/21 Rx Furosemide [Lasix] 40 mg PO BID@0900,1600 30 Days #60 07/08/21 07/24/21 Rx tab methIMAzole [Tapazole] 5 mg PO Q48H 60 Days #30 tab 07/08/21 07/24/21 Rx Ibuprofen [Motrin] 800 mg PO TID PRN 07/24/21 07/24/21 History Metoprolol Tartrate [Lopressor] 25 mg PO BID 07/24/21 07/24/21 History Spironolactone 12.5 mg PO DAILY 07/24/21 07/24/21 History predniSONE 10 mg PO DAILY 07/24/21 07/24/21 History Allergies Allergy/AdvReac Type Severity Reaction Status Date / Time cephalexin monohydrate Allergy Rash/Hives Verified 07/24/21 21:54 [From Keflex] clarithromycin [From Biaxin] Allergy Unknown Verified 07/24/21 21:54 gentamicin [Gentamicin] Allergy Unknown Verified 07/24/21 21:54 naproxen Allergy Unknown Verified 07/24/21 21:54 Penicillins Allergy Anaphylaxis Verified 07/24/21 21:54 Sulfa (Sulfonamide Allergy Rash/Hives Verified 07/24/21 21:54 Antibiotics) promethazine AdvReac Nausea & Verified 07/24/21 21:54 Vomiting Physical Exam Vitals: Vital Signs Temp Pulse Pulse Resp BP BP BP 07/25/21 08:00 98.2 F 66 16 07/25/21 03:10 98.2 F 73 18 07/24/21 23:46 98.1 F 70 18 07/24/21 22:13 62 20 102/63 07/24/21 21:28 67 22 103/70 07/24/21 20:04 62 20 105/62 07/24/21 19:52 105/81 88/53 07/24/21 19:02 97.9 F 57 L 18 91/68 BP Pulse Ox 07/25/21 08:00 102/66 96 07/25/21 03:10 99/60 98 07/24/21 23:46 108/75 98 07/24/21 22:13 99 07/24/21 21:28 99 07/24/21 20:04 96 07/24/21 19:52 111/77 07/24/21 19:02 99 Intake and Output 07/24/21 07/25/21 07/25/21 22:59 06:59 14:59 Intake Total 100 65.949 36.6 Output Total 250 100 Balance -150 -34.051 36.6 Intake: Intake, IV Titration 65.949 36.6 Amount Heparin Sod,Pork in 0.45% 65.949 36.6 NaCl 25,000 unit In 0.45 % NaCl 1 250ml.bag @ 12 UNITS/KG/HR 8.872 mls/hr IV .Q24H [facility] Rx#: [id number] Oral 100 Output: Urine 250 100 Other: Voiding Method Toilet Toilet Urinal Urinal # Voids 1 Weight 73.936 kg 78.9 kg In general patient is alert and oriented x 3 in no distress HEENT head normocephalic and atraumatic Neck is supple no JVD no goiter no lymphadenopathy no carotid bruit Chest examination is clear to auscultation no crackles no wheezing Cardiac exam reveals regular heart sounds S1 and S2 no gallops no murmurs Abdomen is soft nontender no organomegaly with normal bowel sounds Extremity exam reveals no edema no cyanosis or clubbing Neurological examination reveals no gross focal deficits Results CBC & Chem 7: 07/25/21 03:34 07/24/21 19:14 Labs: Abnormal Lab Results - Last 24 Hours (Table) 07/24/21 07/24/21 07/24/21 Range/Units 19:14 19:14 19:14 WBC 15.1 H (3.8-10.6) k/uL RBC (4.30-5.90) m/uL Hgb 11.7 L (13.0-17.5) gm/dL Hct 38.1 L (39.0-53.0) % MCHC 30.8 L (31.0-37.0) g/dL RDW 20.6 H (11.5-15.5) % Neutrophils # 11.7 H (1.3-7.7) k/uL Monocytes # (0-1.0) k/uL PT 14.0 H (9.0-12.0) sec INR 1.4 H (<1.2) APTT 21.4 L (22.0-30.0) sec Sodium 133 L (137-145) mmol/L BUN 32 H (9-20) mg/dL Glucose 165 H (74-99) mg/dL POC Glucose (mg/dL) (75-99) mg/dL Plasma Lactic Acid Elvin (0.7-2.0) mmol/L Magnesium 1.5 L (1.6-2.3) mg/dL ALT 52 H (4-49) U/L Alkaline Phosphatase 320 H (38-126) U/L CK-MB (CK-2) (0.0-2.4) ng/mL Troponin I (0.000-0.034) ng/mL Total Protein 6.2 L (6.3-8.2) g/dL 07/24/21 07/24/21 07/24/21 Range/Units 19:14 19:14 19:40 WBC (3.8-10.6) k/uL RBC (4.30-5.90) m/uL Hgb (13.0-17.5) gm/dL Hct (39.0-53.0) % MCHC (31.0-37.0) g/dL RDW (11.5-15.5) % Neutrophils # (1.3-7.7) k/uL Monocytes # (0-1.0) k/uL PT (9.0-12.0) sec INR (<1.2) APTT (22.0-30.0) sec Sodium (137-145) mmol/L BUN (9-20) mg/dL Glucose (74-99) mg/dL POC Glucose (mg/dL) (75-99) mg/dL Plasma Lactic Acid Elvin 2.2 H* (0.7-2.0) mmol/L Magnesium (1.6-2.3) mg/dL ALT (4-49) U/L Alkaline Phosphatase (38-126) U/L CK-MB (CK-2) 13.6 H (0.0-2.4) ng/mL Troponin I 1.200 H* (0.000-0.034) ng/mL Total Protein (6.3-8.2) g/dL 07/24/21 07/24/21 07/25/21 Range/Units 22:01 22:55 00:31 WBC (3.8-10.6) k/uL RBC (4.30-5.90) m/uL Hgb (13.0-17.5) gm/dL Hct (39.0-53.0) % MCHC (31.0-37.0) g/dL RDW (11.5-15.5) % Neutrophils # (1.3-7.7) k/uL Monocytes # (0-1.0) k/uL PT (9.0-12.0) sec INR (<1.2) APTT (22.0-30.0) sec Sodium (137-145) mmol/L BUN (9-20) mg/dL Glucose (74-99) mg/dL POC Glucose (mg/dL) 148 H (75-99) mg/dL Plasma Lactic Acid Elvin (0.7-2.0) mmol/L Magnesium (1.6-2.3) mg/dL ALT (4-49) U/L Alkaline Phosphatase (38-126) U/L CK-MB (CK-2) (0.0-2.4) ng/mL Troponin I 1.370 H* 1.410 H* (0.000-0.034) ng/mL Total Protein (6.3-8.2) g/dL 07/25/21 07/25/21 07/25/21 Range/Units 00:31 03:34 03:34 WBC 15.3 H (3.8-10.6) k/uL RBC 4.09 L (4.30-5.90) m/uL Hgb 10.9 L (13.0-17.5) gm/dL Hct 36.1 L (39.0-53.0) % MCHC 30.3 L (31.0-37.0) g/dL RDW 20.5 H (11.5-15.5) % Neutrophils # 10.1 H (1.3-7.7) k/uL Monocytes # 1.3 H (0-1.0) k/uL PT 15.5 H (9.0-12.0) sec INR 1.5 H (<1.2) APTT 87.1 H (22.0-30.0) sec Sodium (137-145) mmol/L BUN (9-20) mg/dL Glucose (74-99) mg/dL POC Glucose (mg/dL) (75-99) mg/dL Plasma Lactic Acid Elvin 2.2 H* (0.7-2.0) mmol/L Magnesium (1.6-2.3) mg/dL ALT (4-49) U/L Alkaline Phosphatase (38-126) U/L CK-MB (CK-2) (0.0-2.4) ng/mL Troponin I (0.000-0.034) ng/mL Total Protein (6.3-8.2) g/dL 07/25/21 07/25/21 Range/Units 06:17 07:17 WBC (3.8-10.6) k/uL RBC (4.30-5.90) m/uL Hgb (13.0-17.5) gm/dL Hct (39.0-53.0) % MCHC (31.0-37.0) g/dL RDW (11.5-15.5) % Neutrophils # (1.3-7.7) k/uL Monocytes # (0-1.0) k/uL PT (9.0-12.0) sec INR (<1.2) APTT 69.0 H (22.0-30.0) sec Sodium (137-145) mmol/L BUN (9-20) mg/dL Glucose (74-99) mg/dL POC Glucose (mg/dL) 131 H (75-99) mg/dL Plasma Lactic Acid Elvin (0.7-2.0) mmol/L Magnesium (1.6-2.3) mg/dL ALT (4-49) U/L Alkaline Phosphatase (38-126) U/L CK-MB (CK-2) (0.0-2.4) ng/mL Troponin I (0.000-0.034) ng/mL Total Protein (6.3-8.2) g/dL Thrombosis Risk Factor Assmnt - Choose All That Apply Each Factor Represents 1 point: Obesity (BMI >25), Swollen legs (current) Each Risk Factor Represents 2 Points: Age 61-74 years Thrombosis Risk Factor Assessment Total Risk Factor Score: 4 Thrombosis Risk Factor Assessment Level: Moderate Risk Assessment and Plan Plan: Elevated troponin levels, possible non St elevation myocardial infarction Underlying history of Chronic diastolic congestive heart failure Underlying history of chronic respiratory failure, requiring home oxygen use, likely related to COPD, patient is followed by pulmonary Dr. Cerda. Underlying history of right lower lobe lung mass followed by pulmonary as outpatient, patient had CT scan and PET scan in the last 3 months Underlying history of degenerative disc disease with chronic back pain At this time patient is admitted to telemetry floor He was started on IV heparin Cardiology consultation was requested Home medications reviewed and reordered Will follow closely
[2021-07-25] MEDS: TEMAZEPAM 15 MG CAP PO SCH (20:13)
[2021-07-25] MEDS: LORATADINE 10 MG TAB PO SCH (20:13)
[2021-07-25 20:19] LABS: Glucose,Whole Blood 206 mg/dL (75-99)
[2021-07-26] MEDS: MORPHINE SULFATE 2 MG/ML SYRINGE IVP PRN ×4 (01:35→20:51)
[2021-07-26] MEDS: FUROSEMIDE 10 MG/ML 4 ML VIAL IV SCH ×3 (06:06→20:40)
[2021-07-26 06:10] LABS: Glucose,Whole Blood 182 mg/dL (75-99)
[2021-07-26 07:55] LABS: Calcium 8.9 mg/dL (8.4-10.2); Potassium 4.2 mmol/L (3.5-5.1)
[2021-07-26] MEDS: PANTOPRAZOLE 40 MG TABLET PO SCH ×2 (08:37→20:50)
[2021-07-26] MEDS: METOPROLOL TARTRATE 25 MG TAB PO SCH ×2 (08:37→20:50)
[2021-07-26] MEDS: CITALOPRAM HYDROBROMIDE 20 MG TAB PO SCH (08:37)
[2021-07-26] MEDS: ATORVASTATIN 10 MG TAB PO SCH (08:37)
[2021-07-26] MEDS: metFORMIN 500 MG TAB PO SCH ×2 (08:37→20:57)
[2021-07-26] MEDS: ISOSORBIDE MONONITRATE ER 30 MG TAB.ER.24H PO SCH (08:37)
[2021-07-26] MEDS: predniSONE 10 MG TAB PO SCH (08:37)
[2021-07-26] MEDS: ASPIRIN 81 MG PO SCH (08:37)
[2021-07-26] MEDS: FLUTICASONE 50MCG/SPRAY NASAL 16GM EA NOSTRIL SCH ×2 (08:38→20:40)
[2021-07-26] MEDS: GABAPENTIN 300 MG CAP PO PRN (08:39)
--- NOTE | 2021-07-26 10:36 | ECHOF ---
Referral Reason:Please perform strain, rule out amyloid MEASUREMENTS -------- HEIGHT: 170.2 cm WEIGHT: 75.7 kg BP: 96/60 AVC: 300 ms G peak SL(APLAX): -3 % G peak SL(A4C): -6 % G peak SL(A2C): -7 % G peak SL(Avg): -5 % BS peak sys SL: -5 % MS peak sys SL: -8 % peak sys SL: -13 % BL peak sys SL: 0 % ML peak sys SL: -3 % AL peak sys SL: -9 % BI peak sys SL: -4 % WY peak sys SL: -6 % AI peak sys SL: -11 % BA peak sys SL: -3 % MA peak sys SL: -7 % AA peak sys SL: -11 % BP peak sys SL: -1 % MP peak sys SL: 0 % AP peak sys SL: -10 % BAS peak sys SL: -3 % MAS peak sys SL: -9 % AAS peak sys SL: -14 % HR_2Ch_Q: 64 bpm HR_4Ch_Q: 74 bpm LVVED_2Ch_Q: 91 ml LVVED_4Ch_Q: 186 ml LVVED_BiP_Q: 129 ml LVVES_2Ch_Q: 59 ml LVVES_4Ch_Q: 119 ml LVVES_BiP_Q: 82 ml LVEF_2Ch_Q: 35 % LVEF_4Ch_Q: 36 % LVEF_BiP_Q: 36 % LVSV_2Ch_Q: 32 ml LVSV_4Ch_Q: 67 ml LVSV_BiP_Q: 47 ml LVCO_2Ch_Q: 2.0 l/min LVCO_4Ch_Q: 4.9 l/min LVCO_BiP_Q: 3.0 l/min LVLs_2Ch_Q: 8.0 cm LVLs_4Ch_Q: 8.2 cm LVLd_2Ch_Q: 8.8 cm LVLd_4Ch_Q: 8.8 cm AVC: 296 ms FINDINGS -------- Sinus rhythm. Limited Study Overall left ventricular systolic function is mild-moderately impaired with, an EF between 40 - 45 %. Possible amyloidosis There is no pericardial effusion. CONCLUSIONS -------- 1. Overall left ventricular systolic function is mild-moderately impaired with, an EF between 40 - 45 %. 2. Possible amyloidosis 3. There is no pericardial effusion. MANAGER PROFESSIONAL DEVELOPMENT: Nola Rodriguez RDCS
--- NOTE | 2021-07-26 10:59 | ECHOF ---
Referral Reason:LV function MEASUREMENTS -------- HEIGHT: 170.2 cm WEIGHT: 78.5 kg BP: IVSd: 2.1 cm (0.6 - 1.1) LVIDd: 3.8 cm (3.9 - 5.3) LVPWd: 2.0 cm (0.6 - 1.1) IVSs: 2.4 cm LVIDs: 1.8 cm LVPWs: 3.0 cm FINDINGS -------- Limited Study The cavity size is decreased. There is severe concentric left ventricular hypertrophy. Overall le ft ventricular systolic function is mild-moderately impaired with, an EF between 40 - 45 %. Basal i nferolateral hypokinesis. There is no pericardial effusion. CONCLUSIONS -------- 1. The cavity size is decreased. 2. There is severe concentric left ventricular hypertrophy. 3. Overall left ventricular systolic function is mild-moderately impaired with, an EF between 40 - 45 %. 4. Basal inferolateral hypokinesis. 5. There is no pericardial effusion. BOX SORTER: Dayna Pascal RDCS
[2021-07-26 11:49] LABS: Glucose,Whole Blood 173 mg/dL (75-99)
[2021-07-26 12:11] LABS: Protein, Total 5.4 g/dL (6.2-8.2)
--- NOTE | 2021-07-26 12:12 | P.CONS ---
History of Present Illness - Reason for Consult Consult date: 07/26/21 Low voltage EKG, suspicious for ATTR amyloid Requesting physician: Haley Villa - Chief Complaint SOB - History of Present Illness Mr. Lorenz is a pleasant 71 year old male with a PMH of CHF, COPD, HTN, OA/DDD. He called for EMS help as he could no longer move without being severely SOB, felt dizzy and near syncopy. He was evaluated, VSS other then a lower BP, lactic and trop were elevated. Cardiology evaluated pt, felt to be angina and heart failure, pt has normal cath earlier this year. Heel Coverer Machine Operator is suspects cardiac amyloid as the pt had low voltage on EKG so, we have been asked to see the pt for the same. When seen and examined pt denied fevers, chills, recent acute illness, difficulty swallowing, chest pain, N,V, acute changes in bowel habits. He states he had a PET scan with Pulm to f/u on a lung nodule, he states it was positive, he does not know the plan yet regarding this. Review of Systems 10 point ROS is neg except as stated in HPI Past Medical History Past Medical History: Cancer, COPD, Diabetes Mellitus, GERD/Reflux, Hearing Disorder / Deafness, Hypertension, Osteoarthritis (OA), Prostate Disorder, Sleep Apnea/CPAP/BIPAP Additional Past Medical History / Comment(s): Optic migraines, diverticulosis, kidney stones, neuropathy hands & feet, low BACK PAIN. 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 CPAP use, bilateral hearing aid use, wears brace on bilateral legs. History of Any Multi-Drug Resistant Organisms: None Reported Year Discovered:: none MDRO Source:: none Past Surgical History: Back Surgery, Breast Surgery, Hernia Repair, Joint Replacement Additional Past Surgical History / Comment(s): EGD . Laparoscopic Mireya Fundoplasty, CYSTOSCOPY AND LITHOTRIPSY LEfT URETERAL STENT-SINCE REMOVED. RIGHT BREAST BIOPSY, TOTAL LEFT KNEE REPLACEMENT, LEFT FOOT SURGERY, BILATERAL INGUINAL HERNIA REPAIR, PERCUTANEOUS NEPHROLITHOTOMY, BILATERAL hand surgery, back procedure for nerve endings and cortisone injections, ESOPHGEAL DILATION, eye surgery to remove tumors, LUMPECTOMY RIGHT BREAST. Past Anesthesia/Blood Transfusion Reactions: No Reported Reaction Additional Past Anesthesia/Blood Transfusion Reaction / Comm: NEVER HAD ANY BLOOD TRANSFUSIONS. Past Psychological History: No Psychological Hx Reported Additional Psychological History / Comment(s): . Smoking Status: Former smoker Past Alcohol Use History: None Reported Additional Past Alcohol Use History / Comment(s): STARTED SMOKING AT AGE 12, SMOKED 1 PPD, QUIT 2012. Past Drug Use History: None Reported - Past Family History Father Family Medical History: Cancer Mother Family Medical History: No Reported History Additional Family Medical History / Comment(s): . Medications and Allergies Home Medications Medication Instructions Recorded Confirmed Type Temazepam [Restoril] 30 mg PO HS 03/05/15 07/24/21 History Citalopram Hydrobromide [CeleXA] 40 mg PO DAILY 02/05/16 07/24/21 History Levocetirizine Dihydrochloride 5 mg PO HS 07/13/16 07/24/21 History [Xyzal] Tamsulosin [Flomax] 0.4 mg PO HS 07/13/16 07/24/21 History metFORMIN HCL [Glucophage XR] 500 mg PO BID 11/27/16 07/24/21 History Fluticasone Nasal [place] [Flonase 2 spr EA NOSTRIL BID 03/26/18 07/24/21 History Nasal [place]] Loratadine-Pseudoeph 10-240 mg 1 tab PO DAILY PRN 08/14/19 07/24/21 History [Claritin-D 24 Hour] Dicyclomine [Bentyl] 20 mg PO QID PRN 07/21/20 07/24/21 History Diclofenac Sodium Gel [Voltaren 4 gm TOPICAL TID PRN 01/06/21 07/24/21 History Gel] Gabapentin 600 mg PO Q8H PRN 03/20/21 07/24/21 History Omeprazole 40 mg PO BID 03/20/21 07/24/21 History Atorvastatin [Lipitor] 10 mg PO DAILY 30 Days #30 tab 03/25/21 07/24/21 Rx Furosemide [Lasix] 40 mg PO BID@0900,1600 30 Days #60 07/08/21 07/24/21 Rx tab methIMAzole [Tapazole] 5 mg PO Q48H 60 Days #30 tab 07/08/21 07/24/21 Rx Ibuprofen [Motrin] 800 mg PO TID PRN 07/24/21 07/24/21 History Metoprolol Tartrate [Lopressor] 25 mg PO BID 07/24/21 07/24/21 History Spironolactone 12.5 mg PO DAILY 07/24/21 07/24/21 History predniSONE 10 mg PO DAILY 07/24/21 07/24/21 History Allergies Allergy/AdvReac Type Severity Reaction Status Date / Time cephalexin monohydrate Allergy Rash/Hives Verified 07/24/21 21:54 [From Keflex] clarithromycin [From Biaxin] Allergy Unknown Verified 07/24/21 21:54 gentamicin [Gentamicin] Allergy Unknown Verified 07/24/21 21:54 naproxen Allergy Unknown Verified 07/24/21 21:54 Penicillins Allergy Anaphylaxis Verified 07/24/21 21:54 Sulfa (Sulfonamide Allergy Rash/Hives Verified 07/24/21 21:54 Antibiotics) promethazine AdvReac Nausea & Verified 07/24/21 21:54 Vomiting Physical Exam Vitals: Vital Signs Temp Pulse Resp BP BP BP Pulse Ox 07/26/21 08:00 97.7 F 64 18 101/64 97 07/26/21 03:56 98.8 F 64 18 96/60 95 07/26/21 02:00 70 18 07/26/21 00:00 97.9 F 70 18 98/62 97 07/25/21 20:00 98.3 F 67 18 104/68 93 L 07/25/21 16:00 97.9 F 62 16 104/67 95 07/25/21 14:00 62 16 07/25/21 12:00 62 16 99/65 95 Intake and Output 07/25/21 07/26/21 07/26/21 22:59 06:59 14:59 Other: Voiding Method Toilet Toilet Toilet Urinal Urinal Urinal # Voids 0 # Bowel Movements 0 Weight 76.1 kg - Constitutional General appearance: average body habitus, cooperative, no acute distress - EENT Eyes: anicteric sclerae, EOMI ENT: hearing grossly normal, normal oropharynx - Neck Neck: no lymphadenopathy - Respiratory Respiratory: bilateral: CTA, diminished (bases) - Cardiovascular Rhythm: regular Heart sounds: normal: S1, S2 Abnormal Heart Sounds: no systolic murmur, no diastolic murmur, no rub, no S3 Gallop, no S4 Gallop, no click, no other leg Peripheral Edema: bilateral: Trace - Gastrointestinal General gastrointestinal: no absent bowel sounds, no decreased bowel sounds, distended, no hepatomegaly, no hyperactive bowel sounds, normal bowel sounds, no organomegaly, no rigid, no scaphoid, soft, no splenomegaly, no tenderness, no umbilical hernia, no ventral hernia - Neurologic Neurologic: CNII-XII intact - Musculoskeletal Musculoskeletal: strength equal bilaterally - Psychiatric Psychiatric: A&O x's 3, appropriate affect, intact judgment & insight Results CBC & Chem 7: 07/25/21 03:34 07/26/21 06:50 Labs: Abnormal Lab Results - Last 24 Hours (Table) 07/25/21 07/25/21 07/26/21 Range/Units 16:29 20:18 06:09 BUN (9-20) mg/dL Glucose (74-99) mg/dL POC Glucose (mg/dL) 219 H 206 H 182 H (75-99) mg/dL 07/26/21 07/26/21 Range/Units 06:50 11:48 BUN 40 H (9-20) mg/dL Glucose 176 H (74-99) mg/dL POC Glucose (mg/dL) 173 H (75-99) mg/dL Assessment and Plan Plan: Dr. Rojo discussed case with Heel Coverer Machine Operator. Agree with technetium scan as recommended by Cardiology. Requested 24 hours urine for total protein, light chains, SPEP and beta 2 microglobulin, similar labs ordered. Encouraged pt to f/u re: PET scan and avid pulmonary nodule Attests: I have seen and examined pt, performed H&P, developed impression and plan of care. Discussed with dictator. Agree with documentation, documented as a scribe.
--- NOTE | 2021-07-26 13:37 | P.PN ---
Subjective Progress Note Date: 07/26/21 HISTORY OF PRESENT ILLNESS: This is a 71-year-old male with a past medical history significant for diabetes, hypertension, hyperlipidemia, and congestive heart failure. Patient follows in the office with Dr. Young. We have been asked to see the patient in consultation for abnormal troponins. Patient examined at the bedside. Patient was recently admitted to [facility] a few weeks ago for CHF. He states he was doing well post discharge until a couple days ago when he became short of breath. He reports having shortness of breath when walking around his house and climbing a flight of stairs to get the bathroom. He also reports mild chest pressure over the past two days with no other associated symptoms. The pain is not worse with deep inspiration or chest wall palpation. At the time of examination, the patient denies chest pain or pressure. EKG reveals sinus mechanism with right bundle branch block. No evidence of acute ischemia. Chest xray mild pleural reaction the lung bases. There is improvement in the pulmonary vascularity and clearing of most of the pleural fluid compared to last exam. Laboratory data: WBC 15.3. Hemoglobin 10.9. Platelet count 338. D-dimer 0.56. Sodium 133. Potassium 4.8. BUN 32. Creatinine 0.8. Lactic acid 2.2. Troponin 1.200. 1.370. 1.410. ProBNP 12,500 Current home cardiac medications include spironolactone 12.5 mg daily, metoprolol tartrate 25 mg twice a day, Lasix 40 mg twice a day, Lipitor 10 mg daily Most recent echocardiogram obtained in June 2021 revealed ejection fraction 50-55%, basal inferior LV wall hypokinesis, mild mitral regurgitation, mild tricuspid regurgitation. Previous echocardiogram completed in February 2021 revealed ejection fraction 60- 65%. Cardiac catheterization history: March 2021 revealing normal coronary arteries with minimal intimal plaque. Maximum medical therapy was recommended. Addendum entered and electronically signed by Glenroy Okeefe DO 07/25/21 17:12: Patient with symptoms consistent with angina and heart failure with previously mildly elevated troponins and normal coronaries cath 03/2021. 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 For microvascular dysfunction we will add Imdur. Patient also lightheaded at times and we will stop Aldactone, check orthostatics. Possibility of orthostatics intolerance from peripheral neuropathy with amyloid. We will check repeat limited echo with strain. 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 Continue diuretics. 07/26/2021 Patient examined this morning at the bedside. Patient continues to report shortness of breath with ambulation to the bathroom. He remains on IV diuretics. Repeat echocardiogram performed revealed ejection fraction 40-45%, severe LVH, cavity size decreased, basal inferior lateral hypokinesis, with possible amyloidosis. PHYSICAL EXAM: VITAL SIGNS: Reviewed. GENERAL: Well-developed in no acute distress. HEENT: Head is normocephalic. Pupils are equal, round. Sclerae anicteric. Mucous membranes of the mouth are moist. Neck supple. No JVD or thyromegaly LUNGS: Respirations even and unlabored. Lungs diminished to auscultation bilaterally. HEART: Regular rate and rhythm. S1 and S2 heard. ABDOMEN: Soft. Nondistended. Nontender. EXTREMITIES: Normal range of motion. No clubbing or cyanosis. Peripheral pul ses intact. Trace lower extremity edema NEUROLOGIC: Awake and alert. Oriented x 3. 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 Await results Recommend outpatient nuclear scan to evaluate for possible amyloidosis Further recommendations pending patient's course Nurse practitioner note has been reviewed by physician. Signing provider agrees with the documented findings, assessment, and plan of care. Objective - Vital Signs Vital signs: Vital Signs Temp 97.7 F 07/26/21 08:00 Pulse 64 07/26/21 08:00 Resp 18 07/26/21 08:00 BP 101/64 07/26/21 08:00 Pulse Ox 97 07/26/21 08:00 Intake & Output 07/25/21 07/26/21 07/26/21 18:59 06:59 18:59 Intake Total 36.6 Balance 36.6 Weight 78.9 kg 76.1 kg Intake: Intake, IV Titration 36.6 Amount Heparin Sod,Pork in 0.45% 36.6 NaCl 25,000 unit In 0.45 % NaCl 1 250ml.bag @ 12 UNITS/KG/HR 8.872 mls/hr IV .Q24H [facility] Rx#: [id number] Other: Voiding Method Toilet Toilet Toilet Urinal Urinal Urinal # Voids 0 # Bowel Movements 0 - Labs CBC & Chem 7: 07/25/21 03:34 07/26/21 06:50 Labs: Abnormal Lab Results - Last 24 Hours (Table) 07/25/21 07/25/21 07/26/21 Range/Units 16:29 20:18 06:09 BUN (9-20) mg/dL Glucose (74-99) mg/dL POC Glucose (mg/dL) 219 H 206 H 182 H (75-99) mg/dL Total Protein (PEP) (6.2-8.2) g/dL 07/26/21 07/26/21 07/26/21 Range/Units 06:50 06:50 11:48 BUN 40 H (9-20) mg/dL Glucose 176 H (74-99) mg/dL POC Glucose (mg/dL) 173 H (75-99) mg/dL Total Protein (PEP) 5.4 L (6.2-8.2) g/dL
[2021-07-26 15:18] LABS: Free Kappa Lt Chain Qnt, Urine 68.18 mg/dL (0.00-3.29); Free Lambda Lt Chain Qt, Urine 1.51 mg/dL (0.00-0.38)
[2021-07-26 15:22] LABS: Free Kappa Lt Chain Qnt, Serum 37.51 mg/dL (0.33-1.94)
[2021-07-26 16:54] LABS: Glucose,Whole Blood 187 mg/dL (75-99)
--- NOTE | 2021-07-26 17:29 | P.PN ---
Subjective Progress Note Date: 07/26/21 Gaetano Lorenz, is a year old male who presented to [facility] emergency room with a chief complaint of dizziness near syncope and shortness of breath. He was evaluated in the emergency room vital examination on presentation revealed a temperature of 97.9 pulse 57 respiration 18 blood pressure 91/68 pulse ox 99% on room air. Laboratory data revealed a white blood count of 15.1 hemoglobin 11.7 platelet count 376 sodium 133 BUN 32 creatinine 0.88 glucose 165 lactic acid 2.2 troponin level 1.2 coronary 5PCR was negative Testing in the emergency room revealed EKG revealed sinus bradycardia with first-degree AV block and right bundle branch block, chest x-ray revealed mild pleural reaction at the lung bases. Patient was admitted to medical floor for further evaluation and treatment Past medical history is significant for chronic diastolic congestive heart failure, underlying history of COPD with chronic hypoxic respiratory failure requiring home oxygen use, underlying history of hypertension, underlying history of degenerative disc disease with chronic back pain On review of systems Patient was seen and examined on the medical floor, he is alert and oriented x 3 in no distress, he denies any complaints there is no fever or chills no headache or dizziness no chest pain no shortness of breath no palpitation no cough no nausea or vomiting no abdominal pain no diarrhea no bl ood in the stools no burning with urination no frequency or urgency and no hematuria, there is no weakness or numbness in any of the extremities no change in vision speech or gait. On 07/26/2021 patient was seen and examined on the telemetry floor he is alert and oriented 3 in no apparent distress he is still complaining of shortness of breath with any activity, he can only walk a few steps before having trouble breathing, he is complaining of back pain, otherwise he denies any complaints th ere is no fever or chills no headache or dizziness no chest pain, no cough no nausea or vomiting no abdominal pain no diarrhea no blood in the stools no burning with urination no frequency or urgency and no hematuria Objective - Vital Signs Vital signs: Vital Signs Temp 97.7 F 07/26/21 08:00 Pulse 64 07/26/21 08:00 Resp 18 07/26/21 08:00 BP 101/64 07/26/21 08:00 Pulse Ox 97 07/26/21 08:00 Intake & Output 07/25/21 07/26/21 07/26/21 18:59 06:59 18:59 Intake Total 36.6 Balance 36.6 Weight 78.9 kg 76.1 kg Intake: Intake, IV Titration 36.6 Amount Heparin Sod,Pork in 0.45% 36.6 NaCl 25,000 unit In 0.45 % NaCl 1 250ml.bag @ 12 UNITS/KG/HR 8.872 mls/hr IV .Q24H [facility] Rx#: [id number] Other: Voiding Method Toilet Toilet Toilet Urinal Urinal Urinal # Voids 0 # Bowel Movements 0 - Exam In general patient is alert and oriented x 3 in no distress HEENT head normocephalic and atraumatic Neck is supple no JVD no goiter no lymphadenopathy no carotid bruit Chest examination is clear to auscultation no crackles no wheezing Cardiac exam reveals regular heart sounds S1 and S2 no gallops no murmurs Abdomen is soft nontender no organomegaly with normal bowel sounds Extremity exam reveals no edema no cyanosis or clubbing Neurological examination reveals no gross focal deficits - Labs CBC & Chem 7: 07/25/21 03:34 07/26/21 06:50 Labs: Abnormal Lab Results - Last 24 Hours (Table) 07/25/21 07/25/21 07/25/21 Range/Units 11:42 16:29 20:18 BUN (9-20) mg/dL Glucose (74-99) mg/dL POC Glucose (mg/dL) 213 H 219 H 206 H (75-99) mg/dL 07/26/21 07/26/21 Range/Units 06:09 06:50 BUN 40 H (9-20) mg/dL Glucose 176 H (74-99) mg/dL POC Glucose (mg/dL) 182 H (75-99) mg/dL Assessment and Plan Plan: Elevated troponin levels, possible non St elevation myocardial infarction, however patient had normal cardiac catheterization recently, he continues to come to the hospital with elevated troponin, 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 Cerda. Underlying history of right lower lobe lung mass followed by pulmonary as outpatient, patient had CT scan and PET scan in the last 3 months Underlying history of degenerative disc disease with chronic back pain At this time patient is admitted to telemetry floor He was started on IV heparin Cardiology consultation was requested Home medications reviewed and reordered Will follow closely
[2021-07-26 20:26] LABS: Glucose,Whole Blood 207 mg/dL (75-99)
[2021-07-26] MEDS: LORATADINE 10 MG TAB PO SCH (20:50)
[2021-07-26] MEDS: TEMAZEPAM 15 MG CAP PO SCH (20:55)
[2021-07-26] MEDS: TAMSULOSIN 0.4 MG CAP.ER.24H PO SCH (20:58)
[2021-07-27] MEDS: MORPHINE SULFATE 2 MG/ML SYRINGE IVP PRN ×4 (02:03→21:17)
[2021-07-27 06:09] LABS: Glucose,Whole Blood 144 mg/dL (75-99)
[2021-07-27] MEDS: PANTOPRAZOLE 40 MG TABLET PO SCH ×2 (08:44→21:16)
[2021-07-27] MEDS: METOPROLOL TARTRATE 25 MG TAB PO SCH ×2 (08:44→21:16)
[2021-07-27] MEDS: DICLOFENAC SODIUM GEL 100 GM TUBE TOPICAL PRN (08:44)
[2021-07-27] MEDS: ASPIRIN 81 MG PO SCH (08:44)
[2021-07-27] MEDS: CITALOPRAM HYDROBROMIDE 20 MG TAB PO SCH (08:44)
[2021-07-27] MEDS: predniSONE 10 MG TAB PO SCH (08:44)
[2021-07-27] MEDS: methIMAzole 5 MG TAB PO SCH (08:44)
[2021-07-27] MEDS: FUROSEMIDE 10 MG/ML 4 ML VIAL IV SCH ×2 (08:44→21:17)
[2021-07-27] MEDS: ISOSORBIDE MONONITRATE ER 30 MG TAB.ER.24H PO SCH (08:44)
[2021-07-27] MEDS: metFORMIN 500 MG TAB PO SCH ×2 (08:44→21:16)
[2021-07-27] MEDS: ATORVASTATIN 10 MG TAB PO SCH (08:44)
[2021-07-27 08:56] LABS: ALT 116 U/L (4-49); AST 50 U/L (17-59); African American GFR (CKD) >90 (>60 ml/min/1.73 sqM); Albumin 3.5 g/dL (3.5-5.0); Alkaline Phosphatase 268 U/L (38-126); Anion Gap 8 mmol/L; Blood Urea Nitrogen 40 mg/dL (9-20); Calcium 9.2 mg/dL (8.4-10.2); Carbon Dioxide 29 mmol/L (22-30); Chloride 101 mmol/L (98-107); Glucose 133 mg/dL (74-99); Non-African American GFR(CKD) 79 (>60 ml/min/1.73 sqM); Potassium 4.2 mmol/L (3.5-5.1); Sodium 138 mmol/L (137-145); Total Bilirubin 0.8 mg/dL (0.2-1.3); Total Protein 5.7 g/dL (6.3-8.2)
[2021-07-27 09:09] LABS: Anisocytosis Moderate; Basophils # (A) 0.1 k/uL (0-0.2); Basophils % (A) 1 %; Eosinophils # (A) 0.1 k/uL (0-0.7); Eosinophils % (A) 1 %; HCT 35.2 % (39.0-53.0); HGB 10.9 gm/dL (13.0-17.5); Hypochromasia Marked; Lymphocytes # (A) 2.8 k/uL (1.0-4.8); Lymphocytes % (A) 19 %; MCH 27.1 pg (25.0-35.0); MCV 87.5 fL (80.0-100.0); Mean Platelet Volume 9.6; Microcytosis Slight; Monocytes # (A) 1.3 k/uL (0-1.0); Monocytes % (A) 9 %; Neutrophils # (A) 9.6 k/uL (1.3-7.7); Neutrophils % (A) 68 %; Platelet Count 277 k/uL (150-450); Poikilocytosis Slight; RBC 4.03 m/uL (4.30-5.90); RDW 20.3 % (11.5-15.5); WBC 14.1 k/uL (3.8-10.6)
[2021-07-27 11:26] LABS: Glucose,Whole Blood 191 mg/dL (75-99)
--- NOTE | 2021-07-27 12:50 | P.PN ---
Subjective Progress Note Date: 07/27/21 Gaetano Lorenz, is a year old male who presented to [facility] emergency room with a chief complaint of dizziness near syncope and shortness of breath. He was evaluated in the emergency room vital examination on presentation revealed a temperature of 97.9 pulse 57 respiration 18 blood pressure 91/68 pulse ox 99% on room air. Laboratory data revealed a white blood count of 15.1 hemoglobin 11.7 platelet count 376 sodium 133 BUN 32 creatinine 0.88 glucose 165 lactic acid 2.2 troponin level 1.2 coronary 5PCR was negative Testing in the emergency room revealed EKG revealed sinus bradycardia with first-degree AV block and right bundle branch block, chest x-ray revealed mild pleural reaction at the lung bases. Patient was admitted to medical floor for further evaluation and treatment Past medical history is significant for chronic diastolic congestive heart failure, underlying history of COPD with chronic hypoxic respiratory failure requiring home oxygen use, underlying history of hypertension, underlying history of degenerative disc disease with chronic back pain On review of systems Patient was seen and examined on the medical floor, he is alert and oriented x 3 in no distress, he denies any complaints there is no fever or chills no headache or dizziness no chest pain no shortness of breath no palpitation no cough no nausea or vomiting no abdominal pain no diarrhea no bl ood in the stools no burning with urination no frequency or urgency and no hematuria, there is no weakness or numbness in any of the extremities no change in vision speech or gait. On 07/26/2021 patient was seen and examined on the telemetry floor he is alert and oriented 3 in no apparent distress he is still complaining of shortness of breath with any activity, he can only walk a few steps before having trouble breathing, he is complaining of back pain, otherwise he denies any complaints th ere is no fever or chills no headache or dizziness no chest pain, no cough no nausea or vomiting no abdominal pain no diarrhea no blood in the stools no burning with urination no frequency or urgency and no hematuria On 07/27/2021 patient is alert and oriented 3. Patient is currently being followed by oncology services and cardiology services. At this time patient remained short of breath with activity. Patient denies chest pain. Patient denies nausea vomiting or diarrhea. Patient denies any urinary burning or frequency Objective - Vital Signs Vital signs: Vital Signs Temp 97.6 F 07/27/21 08:00 Pulse 68 07/27/21 08:00 Resp 18 07/27/21 08:00 BP 126/80 07/27/21 08:00 Pulse Ox 97 07/27/21 08:00 Intake & Output 07/26/21 07/27/21 07/27/21 18:59 06:59 18:59 Intake Total 640 118 Output Total 550 950 Balance 90 -832 Weight 77.9 kg Intake: Oral 640 118 Output: Urine 550 950 Other: Voiding Method Toilet Toilet Toilet Urinal Urinal Urinal # Voids 0 # Bowel Movements 0 - Exam In general patient is alert and oriented x 3 in no distress HEENT head normocephalic and atraumatic Neck is supple no JVD no goiter no lymphadenopathy no carotid bruit Chest examination is clear to auscultation no crackles no wheezing Cardiac exam reveals regular heart sounds S1 and S2 no gallops no murmurs Abdomen is soft nontender no organomegaly with normal bowel sounds Extremity exam reveals no edema no cyanosis or clubbing Neurological examination reveals no gross focal deficits - Labs CBC & Chem 7: 07/27/21 07:22 07/27/21 07:22 Labs: Abnormal Lab Results - Last 24 Hours (Table) 07/26/21 07/26/21 07/26/21 Range/Units 03:20 05:30 06:50 WBC (3.8-10.6) k/uL RBC (4.30-5.90) m/uL Hgb (13.0-17.5) gm/dL Hct (39.0-53.0) % RDW (11.5-15.5) % Neutrophils # (1.3-7.7) k/uL Monocytes # (0-1.0) k/uL BUN (9-20) mg/dL Glucose (74-99) mg/dL POC Glucose (mg/dL) (75-99) mg/dL ALT (4-49) U/L Alkaline Phosphatase (38-126) U/L Total Protein (6.3-8.2) g/dL Czvl-6-Vtvdjxcfsjuom 2.50 H (0.61-2.37) mg/L U Free [place] Light Ch 68.18 H (0.00-3.29) mg/dL U Free [place] Ch 1.51 H (0.00-0.38) mg/dL Free [place] LC, Quant 37.51 H (0.33-1.94) mg/dL 07/26/21 07/26/21 07/27/21 Range/Units 16:52 20:25 06:07 WBC (3.8-10.6) k/uL RBC (4.30-5.90) m/uL Hgb (13.0-17.5) gm/dL Hct (39.0-53.0) % RDW (11.5-15.5) % Neutrophils # (1.3-7.7) k/uL Monocytes # (0-1.0) k/uL BUN (9-20) mg/dL Glucose (74-99) mg/dL POC Glucose (mg/dL) 187 H 207 H 144 H (75-99) mg/dL ALT (4-49) U/L Alkaline Phosphatase (38-126) U/L Total Protein (6.3-8.2) g/dL Hmtr-9-Ewzhaqassfxsu (0.61-2.37) mg/L U Free [place] Light Ch (0.00-3.29) mg/dL U Free [place] Ch (0.00-0.38) mg/dL Free [place] LC, Quant (0.33-1.94) mg/dL 07/27/21 07/27/21 07/27/21 Range/Units 07:22 07:22 11:24 WBC 14.1 H (3.8-10.6) k/uL RBC 4.03 L (4.30-5.90) m/uL Hgb 10.9 L (13.0-17.5) gm/dL Hct 35.2 L (39.0-53.0) % RDW 20.3 H (11.5-15.5) % Neutrophils # 9.6 H (1.3-7.7) k/uL Monocytes # 1.3 H (0-1.0) k/uL BUN 40 H (9-20) mg/dL Glucose 133 H (74-99) mg/dL POC Glucose (mg/dL) 191 H (75-99) mg/dL ALT 116 H (4-49) U/L Alkaline Phosphatase 268 H (38-126) U/L Total Protein 5.7 L (6.3-8.2) g/dL Gcdt-1-Ecapohxfzyoho (0.61-2.37) mg/L U Free [place] Ch (0.00-3.29) mg/dL U Free [place] Ch (0.00-0.38) mg/dL Free [place] LC, Quant (0.33-1.94) mg/dL Assessment and Plan Plan: Elevated troponin levels, possible non St elevation myocardial infarction, however patient had normal cardiac catheterization recently, he continues to come to the hospital with elevated troponin, 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 Cerda. 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 Oncology service is following At this time patient is admitted to telemetry floor He was started on IV heparin Cardiology consultation was requested Home medications reviewed and reordered Will follow closely
[2021-07-27] MEDS ORDERED: ISOSORBIDE MONONITRATE ER 30 MG TAB.ER.24H PO STA (13:33)
--- NOTE | 2021-07-27 14:04 | P.PN ---
Subjective Progress Note Date: 07/27/21 HISTORY OF PRESENT ILLNESS: This is a 71-year-old male with a past medical history significant for diabetes, hypertension, hyperlipidemia, and congestive heart failure. Patient follows in the office with Dr. Young. We have been asked to see the patient in consultation for abnormal troponins. Patient examined at the bedside. Patient was recently admitted to [facility] a few weeks ago for CHF. He states he was doing well post discharge until a couple days ago when he became short of breath. He reports having shortness of breath when walking around his house and climbing a flight of stairs to get the bathroom. He also reports mild chest pressure over the past two days with no other associated symptoms. The pain is not worse with deep inspiration or chest wall palpation. At the time of examination, the patient denies chest pain or pressure. EKG reveals sinus mechanism with right bundle branch block. No evidence of acute ischemia. Chest xray mild pleural reaction the lung bases. There is improvement in the pulmonary vascularity and clearing of most of the pleural fluid compared to last exam. Laboratory data: WBC 15.3. Hemoglobin 10.9. Platelet count 338. D-dimer 0.56. Sodium 133. Potassium 4.8. BUN 32. Creatinine 0.8. Lactic acid 2.2. Troponin 1.200. 1.370. 1.410. ProBNP 12,500 Current home cardiac medications include spironolactone 12.5 mg daily, metoprolol tartrate 25 mg twice a day, Lasix 40 mg twice a day, Lipitor 10 mg daily Most recent echocardiogram obtained in June 2021 revealed ejection fraction 50-55%, basal inferior LV wall hypokinesis, mild mitral regurgitation, mild tricuspid regurgitation. Previous echocardiogram completed in February 2021 revealed ejection fraction 60- 65%. Cardiac catheterization history: March 2021 revealing normal coronary arteries with minimal intimal plaque. Maximum medical therapy was recommended. Addendum entered and electronically signed by Glenroy Okeefe DO 07/25/21 17:12: Patient with symptoms consistent with angina and heart failure with previously mildly elevated troponins and normal coronaries cath 03/2021. 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 For microvascular dysfunction we will add Imdur. Patient also lightheaded at times and we will stop Aldactone, check orthostatics. Possibility of orthostatics intolerance from peripheral neuropathy with amyloid. We will check repeat limited echo with strain. 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 Continue diuretics. 07/26/2021 Patient examined this morning at the bedside. Patient continues to report shortness of breath with ambulation to the bathroom. He remains on IV diuretics. Repeat echocardiogram performed revealed ejection fraction 40-45%, severe LVH, cavity size decreased, basal inferior lateral hypokinesis, with possible amyloidosis. 07/27/2021 Patient examined at the bedside. Patient states he has mild chest pressure today. Patient continues to report shortness of breath with activity. He denies shortness of breath at rest. He remains on IV Lasix. Free kappa 37.51. Free lambda 1.00. Hematology is following. PHYSICAL EXAM: VITAL SIGNS: Reviewed. GENERAL: Well-developed in no acute distress. HEENT: Head is normocephalic. Pupils are equal, round. Sclerae anicteric. Mucous membranes of the mouth are moist. Neck supple. No JVD or thyromegaly LUNGS: Respirations even and unlabored. Lungs diminished to auscultation bilaterally. HEART: Regular rate and rhythm. S1 and S2 heard. ABDOMEN: Soft. Nondistended. Nontender. EXTREMITIES: Normal range of motion. No clubbing or cyanosis. Peripheral pulses intact. Trace lower extremity edema NEUROLOGIC: Awake and alert. Oriented x 3. 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 Given additional dose of 30 mg now Continue IV lasix Monitor kidney function Accurate I&O Daily weights Hematology following for possible amyloid Recommend outpatient nuclear scan to evaluate for possible amyloidosis Further recommendations pending patient's course Nurse practitioner note has been reviewed by physician. Signing provider agrees with the documented findings, assessment, and plan of care. Objective - Vital Signs Vital signs: Vital Signs Temp 98.2 F 07/27/21 12:00 Pulse 62 07/27/21 12:00 Resp 18 07/27/21 12:00 BP 100/60 07/27/21 12:00 Pulse Ox 97 07/27/21 08:00 Intake & Output 07/26/21 07/27/21 07/27/21 18:59 06:59 18:59 Intake Total 640 358 Output Total 550 950 Balance 90 -592 Weight 77.9 kg Intake: Oral 640 358 Output: Urine 550 950 Other: Voiding Method Toilet Toilet Toilet Urinal Urinal Urinal # Voids 0 # Bowel Movements 0 - Labs CBC & Chem 7: 07/27/21 07:22 07/27/21 07:22 Labs: Abnormal Lab Results - Last 24 Hours (Table) 07/26/21 07/26/21 07/26/21 Range/Units 03:20 05:30 06:50 WBC (3.8-10.6) k/uL RBC (4.30-5.90) m/uL Hgb (13.0-17.5) gm/dL Hct (39.0-53.0) % RDW (11.5-15.5) % Neutrophils # (1.3-7.7) k/uL Monocytes # (0-1.0) k/uL BUN (9-20) mg/dL Glucose (74-99) mg/dL POC Glucose (mg/dL) (75-99) mg/dL ALT (4-49) U/L Alkaline Phosphatase (38-126) U/L Total Protein (6.3-8.2) g/dL Dqvo-9-Rziyyppdnkjzv 2.50 H (0.61-2.37) mg/L U Free [place] Light Ch 68.18 H (0.00-3.29) mg/dL U Free Lambda [place] Ch 1.51 H (0.00-0.38) mg/dL Free [place] LC, Quant 37.51 H (0.33-1.94) mg/dL 07/26/21 07/26/21 07/27/21 Range/Units 16:52 20:25 06:07 WBC (3.8-10.6) k/uL RBC (4.30-5.90) m/uL Hgb (13.0-17.5) gm/dL Hct (39.0-53.0) % RDW (11.5-15.5) % Neutrophils # (1.3-7.7) k/uL Monocytes # (0-1.0) k/uL BUN (9-20) mg/dL Glucose (74-99) mg/dL POC Glucose (mg/dL) 187 H 207 H 144 H (75-99) mg/dL ALT (4-49) U/L Alkaline Phosphatase (38-126) U/L Total Protein (6.3-8.2) g/dL Fnll-5-Chguuomfqnlip (0.61-2.37) mg/L U Free [place] Light Ch (0.00-3.29) mg/dL U Free Lambda Light Ch (0.00-0.38) mg/dL Free [place] LC, Quant (0.33-1.94) mg/dL 07/27/21 07/27/21 07/27/21 Range/Units 07:22 07:22 11:24 WBC 14.1 H (3.8-10.6) k/uL RBC 4.03 L (4.30-5.90) m/uL Hgb 10.9 L (13.0-17.5) gm/dL Hct 35.2 L (39.0-53.0) % RDW 20.3 H (11.5-15.5) % Neutrophils # 9.6 H (1.3-7.7) k/uL Monocytes # 1.3 H (0-1.0) k/uL BUN 40 H (9-20) mg/dL Glucose 133 H (74-99) mg/dL POC Glucose (mg/dL) 191 H (75-99) mg/dL ALT 116 H (4-49) U/L Alkaline Phosphatase 268 H (38-126) U/L Total Protein 5.7 L (6.3-8.2) g/dL Beqr-6-Xwmajngdjvbpq (0.61-2.37) mg/L U Free [place] Light Ch (0.00-3.29) mg/dL U Free [place] Ch (0.00-0.38) mg/dL Free [place] LC, Quant (0.33-1.94) mg/dL
[2021-07-27] MEDS: FLUTICASONE 50MCG/SPRAY NASAL 16GM EA NOSTRIL SCH ×2 (14:52→21:16)
[2021-07-27 16:32] LABS: Glucose,Whole Blood 187 mg/dL (75-99)
[2021-07-27 20:24] LABS: Glucose,Whole Blood 205 mg/dL (75-99)
--- NOTE | 2021-07-27 20:44 | P.PN ---
Subjective Progress Note Date: 07/27/21 Principal diagnosis: Shortness of Breath Hematology work-up still pending from yesterday's initial consultation. He is still quite SOB today. Objective - Vital Signs Vital signs: Vital Signs Temp 97.6 F 07/27/21 20:11 Pulse 67 07/27/21 20:16 Resp 18 07/27/21 20:16 BP 93/58 07/27/21 20:11 Pulse Ox 96 07/27/21 20:11 Intake & Output 07/27/21 07/27/21 07/28/21 06:59 18:59 06:59 Intake Total 598 Output Total 1150 Balance -552 Weight 77.9 kg 76.2 kg Intake: Oral 598 Output: Urine 1150 Other: Voiding Method Toilet Toilet Toilet Urinal Urinal Urinal - Exam Alert and Oriented Mild Distress when speaking Head: NCNT Neck: Supple Lungs: Increased effort Heart: Re, Ir Abdomen: Soft, Tender Ext: Dependent Edema pedal - Labs CBC & Chem 7: 07/27/21 07:22 07/27/21 07:22 Labs: Abnormal Lab Results - Last 24 Hours (Table) 07/27/21 07/27/21 07/27/21 Range/Units 06:07 07:22 07:22 WBC 14.1 H (3.8-10.6) k/uL RBC 4.03 L (4.30-5.90) m/uL Hgb 10.9 L (13.0-17.5) gm/dL Hct 35.2 L (39.0-53.0) % RDW 20.3 H (11.5-15.5) % Neutrophils # 9.6 H (1.3-7.7) k/uL Monocytes # 1.3 H (0-1.0) k/uL BUN 40 H (9-20) mg/dL Glucose 133 H (74-99) mg/dL POC Glucose (mg/dL) 144 H (75-99) mg/dL ALT 116 H (4-49) U/L Alkaline Phosphatase 268 H (38-126) U/L Total Protein 5.7 L (6.3-8.2) g/dL 07/27/21 07/27/21 07/27/21 Range/Units 11:24 16:30 20:22 WBC (3.8-10.6) k/uL RBC (4.30-5.90) m/uL Hgb (13.0-17.5) gm/dL Hct (39.0-53.0) % RDW (11.5-15.5) % Neutrophils # (1.3-7.7) k/uL Monocytes # (0-1.0) k/uL BUN (9-20) mg/dL Glucose (74-99) mg/dL POC Glucose (mg/dL) 191 H 187 H 205 H (75-99) mg/dL ALT (4-49) U/L Alkaline Phosphatase (38-126) U/L Total Protein (6.3-8.2) g/dL Assessment and Plan (1) Normocytic anemia Current Visit: Yes Status: Acute Code(s): D64.9 - ANEMIA, UNSPECIFIED SNOMED Code(s): 545386801 (2) Acute exacerbation of congestive heart failure Current Visit: No Status: Acute Code(s): I50.9 - HEART FAILURE, UNSPECIFIED SNOMED Code(s): 978638721 (3) Leukocytosis Current Visit: No Status: Acute Code(s): D72.829 - ELEVATED WHITE BLOOD CELL COUNT, UNSPECIFIED SNOMED Code(s): 945582168 (4) Type 2 diabetes mellitus with peripheral neuropathy Current Visit: No Status: Chronic Code(s): E11.42 - TYPE 2 DIABETES MELLITUS WITH DIABETIC POLYNEUROPATHY SNOMED Code(s): 62243584 Plan: Mr. Lorenz has an extensive medical history. Prior imaging reviewed. No noted weight loss when trending of records Await full hematological work-up Follow-up for pulmonary nodule (per patient) and pancreatic Cystic lesion as patient states with outpatient PET scan, not noted in this chart. Will continue to follow and await completion of work-up for further recommendations, in interim supportive care and other acute issues all per other specialties and priry team.
[2021-07-27] MEDS: TAMSULOSIN 0.4 MG CAP.ER.24H PO SCH (21:16)
[2021-07-27] MEDS: LORATADINE 10 MG TAB PO SCH (21:16)
[2021-07-27] MEDS: INSULIN ASPART (NovoLOG) 100 UNIT/ML VIAL SQ SCH (21:18)
[2021-07-27] MEDS: TEMAZEPAM 15 MG CAP PO SCH (23:43)
[2021-07-28 06:04] LABS: Glucose,Whole Blood 127 mg/dL (75-99)
[2021-07-28] MEDS: MORPHINE SULFATE 2 MG/ML SYRINGE IVP PRN ×3 (06:52→18:58)
[2021-07-28] MEDS: INSULIN ASPART (NovoLOG) 100 UNIT/ML VIAL SQ SCH ×4 (07:00→21:02)
[2021-07-28] MEDS ORDERED: INSULIN ASPART (NovoLOG) 100 UNIT/ML VIAL SQ SCH (07:30)
[2021-07-28 09:47] LABS: ALT 114 U/L (4-49); AST 51 U/L (17-59); African American GFR (CKD) >90 (>60 ml/min/1.73 sqM); Albumin 3.5 g/dL (3.5-5.0); Alkaline Phosphatase 297 U/L (38-126); Anion Gap 9 mmol/L; Blood Urea Nitrogen 38 mg/dL (9-20); Calcium 9.2 mg/dL (8.4-10.2); Carbon Dioxide 26 mmol/L (22-30); Chloride 102 mmol/L (98-107); Glucose 143 mg/dL (74-99); LDH 890 U/L (313-618); Magnesium 1.6 mg/dL (1.6-2.3); Non-African American GFR(CKD) 88 (>60 ml/min/1.73 sqM); Potassium 3.8 mmol/L (3.5-5.1); Sodium 137 mmol/L (137-145); Total Bilirubin 1.1 mg/dL (0.2-1.3); Total Protein 5.7 g/dL (6.3-8.2)
[2021-07-28] MEDS: predniSONE 10 MG TAB PO SCH (09:47)
[2021-07-28] MEDS: ASPIRIN 81 MG PO SCH (09:47)
[2021-07-28] MEDS: PANTOPRAZOLE 40 MG TABLET PO SCH ×2 (09:47→20:58)
[2021-07-28] MEDS: metFORMIN 500 MG TAB PO SCH ×2 (09:47→20:58)
[2021-07-28] MEDS: CITALOPRAM HYDROBROMIDE 20 MG TAB PO SCH (09:47)
[2021-07-28] MEDS: METOPROLOL TARTRATE 25 MG TAB PO SCH ×2 (09:47→20:58)
[2021-07-28] MEDS: ATORVASTATIN 10 MG TAB PO SCH (09:47)
[2021-07-28] MEDS: FUROSEMIDE 10 MG/ML 4 ML VIAL IV SCH (09:47)
[2021-07-28] MEDS: FLUTICASONE 50MCG/SPRAY NASAL 16GM EA NOSTRIL SCH ×2 (09:48→21:02)
[2021-07-28] MEDS: ISOSORBIDE MONONITRATE ER 60 MG TAB.ER.24H PO SCH (09:52)
[2021-07-28 10:29] LABS: Reticulocyte % 2.2 % (0.5-2.0)
[2021-07-28 11:28] LABS: Glucose,Whole Blood 166 mg/dL (75-99)
[2021-07-28] MEDS ORDERED: IOPAMIDOL CONTRAST (ORAL USE) VIAL PO PRN (13:13)
--- NOTE | 2021-07-28 13:23 | P.PN ---
Subjective Progress Note Date: 07/28/21 Principal diagnosis: Shortness of Breath Awaiting completion of all hematological work-up, although the current work-up is suspicious for a picture of multiple myeloma. Imaging has been ordered to assess abdomen/pelvis and bones. Objective - Vital Signs Vital signs: Vital Signs Temp 97.7 F 07/28/21 09:45 Pulse 61 07/28/21 13:06 Resp 16 07/28/21 13:06 BP 99/58 07/28/21 13:06 Pulse Ox 96 07/28/21 13:06 Intake & Output 07/27/21 07/28/21 07/28/21 18:59 06:59 18:59 Intake Total 598 360 Output Total 1150 250 Balance -552 -250 360 Weight 76.2 kg Intake: Oral 598 360 Output: Urine 1150 250 Other: Voiding Method Toilet Toilet Urinal Urinal # Voids 1 - Exam Alert and Oriented Mild Distress when speaking Head: NCNT Neck: Supple Lungs: Increased effort Heart: Re, Ir Abdomen: Soft, Tender Ext: Dependent Edema pedal - Labs CBC & Chem 7: 07/27/21 07:22 07/28/21 08:08 Labs: Abnormal Lab Results - Last 24 Hours (Table) 07/27/21 07/27/21 07/28/21 Range/Units 16:30 20:22 06:03 Retic Count (0.5-2.0) % BUN (9-20) mg/dL Glucose (74-99) mg/dL POC Glucose (mg/dL) 187 H 205 H 127 H (75-99) mg/dL ALT (4-49) U/L Alkaline Phosphatase (38-126) U/L Lactate Dehydrogenase (313-618) U/L Total Protein (6.3-8.2) g/dL 07/28/21 07/28/21 07/28/21 Range/Units 08:08 08:08 11:26 Retic Count 2.2 H (0.5-2.0) % BUN 38 H (9-20) mg/dL Glucose 143 H (74-99) mg/dL POC Glucose (mg/dL) 166 H (75-99) mg/dL ALT 114 H (4-49) U/L Alkaline Phosphatase 297 H (38-126) U/L Lactate Dehydrogenase 890 H (313-618) U/L Total Protein 5.7 L (6.3-8.2) g/dL Assessment and Plan (1) Normocytic anemia Current Visit: Yes Status: Acute Code(s): D64.9 - ANEMIA, UNSPECIFIED SNOMED Code(s): 044023898 (2) Acute exacerbation of congestive heart failure Current Visit: No Status: Acute Code(s): I50.9 - HEART FAILURE, UNSPECIFIED SNOMED Code(s): 621374118 (3) Leukocytosis Current Visit: No Status: Acute Code(s): D72.829 - ELEVATED WHITE BLOOD CELL COUNT, UNSPECIFIED SNOMED Code(s): 941213312 (4) Type 2 diabetes mellitus with peripheral neuropathy Current Visit: No Status: Chronic Code(s): E11.42 - TYPE 2 DIABETES MELLITUS WITH DIABETIC POLYNEUROPATHY SNOMED Code(s): 59106321 Plan: Await completion of full hematological work-up and skeletal survey for recommendations CT contrast contraindication with metformin, message to nursing to assist in primary team recommendation for this. Continue monitoring daily CBC. Further recommendations to follow.
--- NOTE | 2021-07-28 14:00 | P.PN ---
Subjective Progress Note Date: 07/28/21 HISTORY OF PRESENT ILLNESS: This is a 71-year-old male with a past medical history significant for diabetes, hypertension, hyperlipidemia, and congestive heart failure. Patient follows in the office with Dr. Young. We have been asked to see the patient in consultation for abnormal troponins. Patient examined at the bedside. Patient was recently admitted to [facility] a few weeks ago for CHF. He states he was doing well post discharge until a couple days ago when he became short of breath. He reports having shortness of breath when walking around his house and climbing a flight of stairs to get the bathroom. He also reports mild chest pressure over the past two days with no other associated symptoms. The pain is not worse with deep inspiration or chest wall palpation. At the time of examination, the patient denies chest pain or pressure. EKG reveals sinus mechanism with right bundle branch block. No evidence of acute ischemia. Chest xray mild pleural reaction the lung bases. There is improvement in the pulmonary vascularity and clearing of most of the pleural fluid compared to last exam. Laboratory data: WBC 15.3. Hemoglobin 10.9. Platelet count 338. D-dimer 0.56. Sodium 133. Potassium 4.8. BUN 32. Creatinine 0.8. Lactic acid 2.2. Troponin 1.200. 1.370. 1.410. ProBNP 12,500 Current home cardiac medications include spironolactone 12.5 mg daily, metoprolol tartrate 25 mg twice a day, Lasix 40 mg twice a day, Lipitor 10 mg daily Most recent echocardiogram obtained in June 2021 revealed ejection fraction 50-55%, basal inferior LV wall hypokinesis, mild mitral regurgitation, mild tricuspid regurgitation. Previous echocardiogram completed in February 2021 revealed ejection fraction 60- 65%. Cardiac catheterization history: March 2021 revealing normal coronary arteries with minimal intimal plaque. Maximum medical therapy was recommended. Addendum entered and electronically signed by Glenory Okeefe DO 07/25/21 17:12: Patient with symptoms consistent with angina and heart failure with previously mildly elevated troponins and normal coronaries cath 03/2021. 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 For microvascular dysfunction we will add Imdur. Patient also lightheaded at times and we will stop Aldactone, check orthostatics. Possibility of orthostatics intolerance from peripheral neuropathy with amyloid. We will check repeat limited echo with strain. 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 Continue diuretics. 07/26/2021 Patient examined this morning at the bedside. Patient continues to report shortness of breath with ambulation to the bathroom. He remains on IV diuretics. Repeat echocardiogram performed revealed ejection fraction 40-45%, severe LVH, cavity size decreased, basal inferior lateral hypokinesis, with possible amyloidosis. 07/27/2021 Patient examined at the bedside. Patient states he has mild chest pressure today. Patient continues to report shortness of breath with activity. He denies shortness of breath at rest. He remains on IV Lasix. Free kappa 37.51. Free lambda 1.00. Hematology is following. 07/28/2021 Patient examined at the bedside. Patient denies chest pain. He continues to report shortness of breath with activity. He remains on IV Lasix. BUN 38. Creatinine 0.82. PHYSICAL EXAM: VITAL SIGNS: Reviewed. GENERAL: Well-developed in no acute distress. HEENT: Head is normocephalic. Pupils are equal, round. Sclerae anicteric. Mucous membranes of the mouth are moist. Neck supple. No JVD or thyromegaly LUNGS: Respirations even and unlabored. Lungs diminished to auscultation bilaterally. HEART: Regular rate and rhythm. S1 and S2 heard. EXTREMITIES: Normal range of motion. No clubbing or cyanosis. Peripheral pulses intact. 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 Begin oral Lasix 40 mg twice a day Monitor kidney function Accurate I&O Daily weights Hematology following. CT abdomen and pelvis ordered. Recommend outpatient nuclear scan to evaluate for possible amyloidosis Further recommendations pending patient's course Nurse practitioner note has been reviewed by physician. Signing provider agrees with the documented findings, assessment, and plan of care. Objective - Vital Signs Vital signs: Vital Signs Temp 97.7 F 07/28/21 09:45 Pulse 61 07/28/21 13:06 Resp 16 07/28/21 13:06 BP 99/58 07/28/21 13:06 Pulse Ox 96 07/28/21 13:06 Intake & Output 07/27/21 07/28/21 07/28/21 18:59 06:59 18:59 Intake Total 598 480 Output Total 1150 250 Balance -552 -250 480 Weight 76.2 kg 75.3 kg Intake: Oral 598 480 Output: Urine 1150 250 Other: Voiding Method Toilet Toilet Urinal Urinal # Voids 1 - Labs CBC & Chem 7: 07/27/21 07:22 07/28/21 08:08 Labs: Abnormal Lab Results - Last 24 Hours (Table) 07/27/21 07/27/21 07/28/21 Range/Units 16:30 20:22 06:03 Retic Count (0.5-2.0) % BUN (9-20) mg/dL Glucose (74-99) mg/dL POC Glucose (mg/dL) 187 H 205 H 127 H (75-99) mg/dL ALT (4-49) U/L Alkaline Phosphatase (38-126) U/L Lactate Dehydrogenase (313-618) U/L Total Protein (6.3-8.2) g/dL 07/28/21 07/28/21 07/28/21 Range/Units 08:08 08:08 11:26 Retic Count 2.2 H (0.5-2.0) % BUN 38 H (9-20) mg/dL Glucose 143 H (74-99) mg/dL POC Glucose (mg/dL) 166 H (75-99) mg/dL ALT 114 H (4-49) U/L Alkaline Phosphatase 297 H (38-126) U/L Lactate Dehydrogenase 890 H (313-618) U/L Total Protein 5.7 L (6.3-8.2) g/dL
[2021-07-28 14:14] LABS: Total Volume 24 Hour,Urine 1350 mls (250-2400)
[2021-07-28 14:32] LABS: Total Protein 24 Hour,Urine 176 mg/24hr (42.0-225.0)
[2021-07-28 14:45] LABS: Anisocytosis Moderate; Basophils # (A) 0.1 k/uL (0-0.2); Basophils % (A) 0 %; Eosinophils # (A) 0.1 k/uL (0-0.7); Eosinophils % (A) 1 %; HCT 34.4 % (39.0-53.0); HGB 10.3 gm/dL (13.0-17.5); Hypochromasia Marked; Lymphocytes # (A) 2.3 k/uL (1.0-4.8); Lymphocytes % (A) 15 %; MCH 26.5 pg (25.0-35.0); MCHC 29.8 g/dL (31.0-37.0); MCV 88.9 fL (80.0-100.0); Mean Platelet Volume 10.9; Microcytosis Slight; Monocytes # (A) 1.4 k/uL (0-1.0); Monocytes % (A) 9 %; Neutrophils # (A) 10.7 k/uL (1.3-7.7); Neutrophils % (A) 72 %; Platelet Count 258 k/uL (150-450); Poikilocytosis Slight; RBC 3.88 m/uL (4.30-5.90); RDW 20.4 % (11.5-15.5); WBC 14.9 k/uL (3.8-10.6)
[2021-07-28 17:00] LABS: Glucose,Whole Blood 202 mg/dL (75-99)
--- NOTE | 2021-07-28 17:03 | CT ---
EXAMINATION TYPE: CT abdomen pelvis w con DATE OF EXAM: 07/28/2021 COMPARISON: CT abdomen and pelvis September 21, 2020 and older studies. HISTORY: myeloma work up CT DLP: 1000.7 mGycm, Automated Exposure Control for Dose Reduction was Utilized. CONTRAST: CT scan of the abdomen and pelvis is performed with oral and with IV Contrast, patient injected with 100 mL of Isovue 300. FINDINGS: LUNG BASES: New small to tiny left pleural effusion and associated left basilar atelectasis and/or co nsolidation. New tiny right pleural effusion and associated consolidation and/or atelectasis. New rig ht basilar 2.4 x 1.7 cm low dense nodule axial image 3. Possible additional new 5 mm nodule right julio c g base axial image 5. Mild cardiomegaly redemonstrated. LIVER/GB: Liver size stable and somewhat small with nonspecific scattered hypodense lesions likely s table and benign. Gallbladder remains surgically absent. PANCREAS: No significant abnormality is seen. SPLEEN: No significant abnormality is seen. ADRENALS: No significant abnormality is seen. KIDNEYS: A few scattered thin-walled cysts throughout both kidneys redemonstrated. BOWEL: Stable postsurgical changes at level of diaphragmatic hiatus with stable small hiatal hernia a nd persistent wall thickening or dilatation of distal esophagus proximal to this. Correlate clinicall y. Scattered colonic diverticula. Most prominent diverticulosis involving the redundant sigmoid colon . Poor distention of the distal sigmoid colon. Oral contrast does not reach terminal ileum making laureano luation of distal bowel suboptimal. No suspicious small or large bowel dilatation. GENITAL ORGANS: Enlarged prostate gland consistent with BPH redemonstrated. LYMPH NODES: No greater than 1cm abdominal or pelvic lymph nodes are appreciated. OSSEOUS STRUCTURES: Moderate 2 borderline severe axial joint space loss in both hips with mild to mod erate acetabular spurring. Hcplfhfa-[id number] disc space narrowing lumbosacral junction redemonstrate d. OTHER: Vasectomy clips in the upper scrotal region redemonstrated. Moderate peripheral calcified plaq ue of the aorta extends into branch vessels. IMPRESSION: No new suspicious focal osseous lytic lesions. New small right basilar nodules. Consider repeat chest CT to evaluate for additional pulmonary nodules.
[2021-07-28] MEDS: FUROSEMIDE 40 MG TAB PO SCH (17:11)
[2021-07-28] MEDS: SODIUM CHLORIDE 0.9% 1,000 ML in EMPTY BAG 1 BAG IV SCH (19:00)
[2021-07-28 19:20] LABS: Iron 28 ug/dL (65-175); Total Iron Binding Capacity 498 ug/dL (228-460)
[2021-07-28 20:02] LABS: Immunoglobulin A 57.6 mg/dL (60.0-350.0); Immunoglobulin M 66.6 mg/dL (40.0-280.0)
[2021-07-28] MEDS: TAMSULOSIN 0.4 MG CAP.ER.24H PO SCH (20:58)
[2021-07-28] MEDS: LORATADINE 10 MG TAB PO SCH ×2 (20:58→21:06)
[2021-07-28] MEDS: TEMAZEPAM 15 MG CAP PO SCH (21:00)
[2021-07-28 21:11] LABS: Glucose,Whole Blood 158 mg/dL (75-99)
[2021-07-28 21:42] LABS: Ferritin 27.4 ng/mL (22.0-322.0)
[2021-07-28 21:53] LABS: Vitamin B12 >2000.0 pg/mL (200.0-944.0)
[2021-07-28] MEDS: ALPRAZolam 0.5 MG TAB PO PRN (23:08)
[2021-07-29] MEDS: MORPHINE SULFATE 2 MG/ML SYRINGE IVP PRN ×4 (03:12→20:14)
[2021-07-29 06:15] LABS: Glucose,Whole Blood 114 mg/dL (75-99)
[2021-07-29] MEDS: INSULIN ASPART (NovoLOG) 100 UNIT/ML VIAL SQ SCH ×4 (06:33→21:13)
[2021-07-29] MEDS: ALPRAZolam 0.5 MG TAB PO PRN ×3 (06:41→18:30)
[2021-07-29] MEDS ORDERED: HEPARIN SODIUM,PORCINE 2,500 UNIT in SODIUM CHLORIDE 0.9% 250 ML IRRIGATION PRN (07:00)
[2021-07-29] MEDS ORDERED: HEPARIN SODIUM,PORCINE 10,000 UNIT in SODIUM CHLORIDE 0.9% 1,000 ML IRRIGATION PRN (07:00)
[2021-07-29] MEDS: metFORMIN 500 MG TAB PO SCH (08:04)
[2021-07-29] MEDS: GABAPENTIN 300 MG CAP PO PRN ×2 (09:19→18:30)
[2021-07-29] MEDS: ASPIRIN 81 MG PO SCH (09:20)
[2021-07-29] MEDS: ATORVASTATIN 10 MG TAB PO SCH (09:20)
[2021-07-29] MEDS: ISOSORBIDE MONONITRATE ER 60 MG TAB.ER.24H PO SCH (09:20)
[2021-07-29] MEDS: METOPROLOL TARTRATE 25 MG TAB PO SCH (09:21)
[2021-07-29] MEDS: FLUTICASONE 50MCG/SPRAY NASAL 16GM EA NOSTRIL SCH ×2 (09:24→21:20)
[2021-07-29] MEDS ORDERED: LIDOCAINE 1% INJ 10MG/ML (20 ML MDV) ONE (09:34)
--- NOTE | 2021-07-29 09:52 | P.PN ---
Subjective Progress Note Date: 07/28/21 Gaetano Lorenz, is a year old male who presented to [facility] emergency room with a chief complaint of dizziness near syncope and shortness of breath. He was evaluated in the emergency room vital examination on presentation revealed a temperature of 97.9 pulse 57 respiration 18 blood pressure 91/68 pulse ox 99% on room air. Laboratory data revealed a white blood count of 15.1 hemoglobin 11.7 platelet count 376 sodium 133 BUN 32 creatinine 0.88 glucose 165 lactic acid 2.2 troponin level 1.2 coronary 5PCR was negative Testing in the emergency room revealed EKG revealed sinus bradycardia with first-degree AV block and right bundle branch block, chest x-ray revealed mild pleural reaction at the lung bases. Patient was admitted to medical floor for further evaluation and treatment Past medical history is significant for chronic diastolic congestive heart failure, underlying history of COPD with chronic hypoxic respiratory failure requiring home oxygen use, underlying history of hypertension, underlying history of degenerative disc disease with chronic back pain On review of systems Patient was seen and examined on the medical floor, he is alert and oriented x 3 in no distress, he denies any complaints there is no fever or chills no headache or dizziness no chest pain no shortness of breath no palpitation no cough no nausea or vomiting no abdominal pain no diarrhea no bl ood in the stools no burning with urination no frequency or urgency and no hematuria, there is no weakness or numbness in any of the extremities no change in vision speech or gait. On 07/26/2021 patient was seen and examined on the telemetry floor he is alert and oriented 3 in no apparent distress he is still complaining of shortness of breath with any activity, he can only walk a few steps before having trouble breathing, he is complaining of back pain, otherwise he denies any complaints th ere is no fever or chills no headache or dizziness no chest pain, no cough no nausea or vomiting no abdominal pain no diarrhea no blood in the stools no burning with urination no frequency or urgency and no hematuria On 07/27/2021 patient is alert and oriented 3. Patient is currently being followed by oncology services and cardiology services. At this time patient remained short of breath with activity. Patient denies chest pain. Patient denies nausea vomiting or diarrhea. Patient denies any urinary burning or frequency On 07/28/2021 patient's alert and oriented 3. Patient remained short of breath with activity. Cardiology oncology services are following further workup pending per oncology and cardiology services. Patient reports occasional shortness breath and chest pain. Patient denies nausea vomiting or diarrhea. Patient denies any urinary burning or frequency Objective - Vital Signs Vital signs: Vital Signs Temp 97.7 F 07/28/21 09:45 Pulse 65 07/28/21 09:45 Resp 18 07/28/21 09:45 BP 109/62 07/28/21 09:45 Pulse Ox 94 L 07/28/21 09:45 Intake & Output 07/27/21 07/28/21 07/28/21 18:59 06:59 18:59 Intake Total 598 360 Output Total 1150 250 Balance -552 -250 360 Weight 76.2 kg Intake: Oral 598 360 Output: Urine 1150 250 Other: Voiding Method Toilet Toilet Urinal Urinal - Exam In general patient is alert and oriented x 3 in no distress HEENT head normocephalic and atraumatic Neck is supple no JVD no goiter no lymphadenopathy no carotid bruit Chest examination is clear to auscultation no crackles no wheezing Cardiac exam reveals regular heart sounds S1 and S2 no gallops no murmurs Abdomen is soft nontender no organomegaly with normal bowel sounds Extremity exam reveals no edema no cyanosis or clubbing Neurological examination reveals no gross focal deficits - Labs CBC & Chem 7: 07/28/21 08:08 07/28/21 08:08 Labs: Abnormal Lab Results - Last 24 Hours (Table) 07/27/21 07/27/21 07/27/21 Range/Units 11:24 16:30 20:22 BUN (9-20) mg/dL Glucose (74-99) mg/dL POC Glucose (mg/dL) 191 H 187 H 205 H (75-99) mg/dL ALT (4-49) U/L Alkaline Phosphatase (38-126) U/L Lactate Dehydrogenase (313-618) U/L Total Protein (6.3-8.2) g/dL 07/28/21 07/28/21 Range/Units 06:03 08:08 BUN 38 H (9-20) mg/dL Glucose 143 H (74-99) mg/dL POC Glucose (mg/dL) 127 H (75-99) mg/dL ALT 114 H (4-49) U/L Alkaline Phosphatase 297 H (38-126) U/L Lactate Dehydrogenase 890 H (313-618) U/L Total Protein 5.7 L (6.3-8.2) g/dL Assessment and Plan Plan: Elevated troponin levels, possible non St elevation myocardial infarction, however patient had normal cardiac catheterization recently, he continues to come to the hospital with elevated troponin, 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 Cerda. 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 Oncology service is following At this time patient is admitted to telemetry floor He was started on IV heparin Cardiology consultation was requested Home medications reviewed and reordered Will follow closely
[2021-07-29] MEDS ORDERED: fentaNYL (PF) 50 MCG/ML 2 ML AMP ONE (09:54)
--- NOTE | 2021-07-29 09:54 | P.PN ---
Subjective Progress Note Date: 07/29/21 Gaetano Lorenz, is a year old male who presented to [facility] emergency room with a chief complaint of dizziness near syncope and shortness of breath. He was evaluated in the emergency room vital examination on presentation revealed a temperature of 97.9 pulse 57 respiration 18 blood pressure 91/68 pulse ox 99% on room air. Laboratory data revealed a white blood count of 15.1 hemoglobin 11.7 platelet count 376 sodium 133 BUN 32 creatinine 0.88 glucose 165 lactic acid 2.2 troponin level 1.2 coronary 5PCR was negative Testing in the emergency room revealed EKG revealed sinus bradycardia with first-degree AV block and right bundle branch block, chest x-ray revealed mild pleural reaction at the lung bases. Patient was admitted to medical floor for further evaluation and treatment Past medical history is significant for chronic diastolic congestive heart failure, underlying history of COPD with chronic hypoxic respiratory failure requiring home oxygen use, underlying history of hypertension, underlying history of degenerative disc disease with chronic back pain On review of systems Patient was seen and examined on the medical floor, he is alert and oriented x 3 in no distress, he denies any complaints there is no fever or chills no headache or dizziness no chest pain no shortness of breath no palpitation no cough no nausea or vomiting no abdominal pain no diarrhea no bl ood in the stools no burning with urination no frequency or urgency and no hematuria, there is no weakness or numbness in any of the extremities no change in vision speech or gait. On 07/26/2021 patient was seen and examined on the telemetry floor he is alert and oriented 3 in no apparent distress he is still complaining of shortness of breath with any activity, he can only walk a few steps before having trouble breathing, he is complaining of back pain, otherwise he denies any complaints th ere is no fever or chills no headache or dizziness no chest pain, no cough no nausea or vomiting no abdominal pain no diarrhea no blood in the stools no burning with urination no frequency or urgency and no hematuria On 07/27/2021 patient is alert and oriented 3. Patient is currently being followed by oncology services and cardiology services. At this time patient remained short of breath with activity. Patient denies chest pain. Patient denies nausea vomiting or diarrhea. Patient denies any urinary burning or frequency On 07/28/2021 patient's alert and oriented 3. Patient remained short of breath with activity. Cardiology oncology services are following further workup pending per oncology and cardiology services. Patient reports occasional shortness breath and chest pain. Patient denies nausea vomiting or diarrhea. Patient denies any urinary burning or frequency On 07/29/2021 patient's alert and oriented 3. RHC test and bone scan to be completed today. Patient remains with episodes of shortness of breath Objective - Vital Signs Vital signs: Vital Signs Temp 98 F 07/29/21 08:00 Pulse 64 07/29/21 08:00 Resp 16 07/29/21 08:00 BP 90/58 07/29/21 08:00 Pulse Ox 96 07/29/21 08:00 Intake & Output 07/28/21 07/29/21 07/29/21 18:59 06:59 18:59 Intake Total 600 Balance 600 Weight 75.3 kg Intake: Oral 600 Other: Voiding Method Toilet Toilet Toilet Urinal Urinal Urinal # Voids 1 # Bowel Movements 0 - Exam In general patient is alert and oriented x 3 in no distress HEENT head normocephalic and atraumatic Neck is supple no JVD no goiter no lymphadenopathy no carotid bruit Chest examination is clear to auscultation no crackles no wheezing Cardiac exam reveals regular heart sounds S1 and S2 no gallops no murmurs Abdomen is soft nontender no organomegaly with normal bowel sounds Extremity exam reveals no edema no cyanosis or clubbing Neurological examination reveals no gross focal deficits - Labs CBC & Chem 7: 07/28/21 08:08 07/28/21 08:08 Labs: Abnormal Lab Results - Last 24 Hours (Table) 07/28/21 07/28/21 07/28/21 Range/Units 08:08 08:08 08:08 WBC 14.9 H (3.8-10.6) k/uL RBC 3.88 L (4.30-5.90) m/uL Hgb 10.3 L (13.0-17.5) gm/dL Hct 34.4 L (39.0-53.0) % MCHC 29.8 L (31.0-37.0) g/dL RDW 20.4 H (11.5-15.5) % Neutrophils # 10.7 H (1.3-7.7) k/uL Monocytes # 1.4 H (0-1.0) k/uL Retic Count (0.5-2.0) % POC Glucose (mg/dL) (75-99) mg/dL Iron 28 L (65-175) ug/dL TIBC 498 H (228-460) ug/dL % Saturation 5.70 L (15.00-50.00) Transferrin 356.0 H (204.0-354.0) mg/dL Vitamin B12 >2000.0 H (200.0-944.0) pg/mL IgG 598.0 L (700.0-1600.0) mg/dL IgA 57.6 L (60.0-350.0) mg/dL 07/28/21 07/28/21 07/28/21 Range/Units 08:08 11:26 16:58 WBC (3.8-10.6) k/uL RBC (4.30-5.90) m/uL Hgb (13.0-17.5) gm/dL Hct (39.0-53.0) % MCHC (31.0-37.0) g/dL RDW (11.5-15.5) % Neutrophils # (1.3-7.7) k/uL Monocytes # (0-1.0) k/uL Retic Count 2.2 H (0.5-2.0) % POC Glucose (mg/dL) 166 H 202 H (75-99) mg/dL Iron (65-175) ug/dL TIBC (228-460) ug/dL % Saturation (15.00-50.00) Transferrin (204.0-354.0) mg/dL Vitamin B12 (200.0-944.0) pg/mL IgG (700.0-1600.0) mg/dL IgA (60.0-350.0) mg/dL 07/28/21 07/29/21 Range/Units 20:29 06:00 WBC (3.8-10.6) k/uL RBC (4.30-5.90) m/uL Hgb (13.0-17.5) gm/dL Hct (39.0-53.0) % MCHC (31.0-37.0) g/dL RDW (11.5-15.5) % Neutrophils # (1.3-7.7) k/uL Monocytes # (0-1.0) k/uL Retic Count (0.5-2.0) % POC Glucose (mg/dL) 158 H 114 H (75-99) mg/dL Iron (65-175) ug/dL TIBC (228-460) ug/dL % Saturation (15.00-50.00) Transferrin (204.0-354.0) mg/dL Vitamin B12 (200.0-944.0) pg/mL IgG (700.0-1600.0) mg/dL IgA (60.0-350.0) mg/dL Assessment and Plan Plan: Elevated troponin levels, possible non St elevation myocardial infarction, however patient had normal cardiac catheterization recently, he continues to come to the hospital with elevated troponin, 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 Cerda. 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 Oncology service is following At this time patient is admitted to telemetry floor Oncology and hematology services following computed tomography scan and bone scan ordered per oncology R HC test to be completed 07/29/2021
[2021-07-29] MEDS ORDERED: fentaNYL (PF) 50 MCG/ML 2 ML AMP IVP ONE (10:13)
[2021-07-29] MEDS ORDERED: MIDAZOLAM 2 MG/2 ML VIAL IVP ONE (10:13)
[2021-07-29] MEDS ORDERED: LIDOCAINE 1% INJ 10MG/ML (20 ML MDV) SQ ONE (10:14)
[2021-07-29] MEDS ORDERED: IV FLUID CONTINUATION 1,000 ML IV ONE (10:31)
[2021-07-29 10:39] LABS: O2 Sat Blood Gas 41.2 %
[2021-07-29 10:42] LABS: O2 Sat Blood Gas 35.3 %
[2021-07-29] MEDS ORDERED: RX INFO: IV CONTRAST WAS GIVEN 1 EACH MISC MISCELLANE PRN (10:56)
[2021-07-29 11:23] LABS: Glucose,Whole Blood 120 mg/dL (75-99)
[2021-07-29] MEDS: predniSONE 10 MG TAB PO SCH (11:59)
[2021-07-29] MEDS: FUROSEMIDE 40 MG TAB PO SCH ×2 (11:59→18:28)
[2021-07-29] MEDS: CITALOPRAM HYDROBROMIDE 20 MG TAB PO SCH (11:59)
[2021-07-29] MEDS: PANTOPRAZOLE 40 MG TABLET PO SCH ×2 (11:59→21:11)
--- NOTE | 2021-07-29 14:26 | P.PN ---
Subjective Progress Note Date: 07/29/21 Principal diagnosis: Shortness of Breath Awaiting complete results of work-up, suspicious for diagnosis of Multiple myeloma, he has been unable to tolerate tests due to back pain, ok for one time dose of dilaudid prior to imaging. Havve also added Bowel regimen. Spoke with patient, and nursing today during visit. Dr. Rojo also discussed in detail current hematological work-up and plan for possible bone marrow biopsy on Sunday. Objective - Vital Signs Vital signs: Vital Signs Temp 98 F 07/29/21 08:00 Pulse 64 07/29/21 08:00 Resp 16 07/29/21 08:00 BP 90/58 07/29/21 08:00 Pulse Ox 96 07/29/21 08:00 Intake & Output 07/28/21 07/29/21 07/29/21 18:59 06:59 18:59 Intake Total 600 170 Balance 600 170 Weight 75.3 kg 75.7 kg Intake: IV 50 Oral 600 120 Other: Voiding Method Toilet Toilet Toilet Urinal Urinal Urinal # Voids 1 # Bowel Movements 0 - Exam Alert and Oriented Mild Distress when speaking Head: NCNT Neck: Supple Lungs: Increased effort Heart: Re, Ir Abdomen: Soft, Tender Ext: Dependent Edema pedal - Labs CBC & Chem 7: 07/29/21 15:00 07/29/21 15:00 Labs: Abnormal Lab Results - Last 24 Hours (Table) 07/28/21 07/28/21 07/28/21 Range/Units 08:08 08:08 08:08 WBC 14.9 H (3.8-10.6) k/uL RBC 3.88 L (4.30-5.90) m/uL Hgb 10.3 L (13.0-17.5) gm/dL Hct 34.4 L (39.0-53.0) % MCHC 29.8 L (31.0-37.0) g/dL RDW 20.4 H (11.5-15.5) % Neutrophils # 10.7 H (1.3-7.7) k/uL Monocytes # 1.4 H (0-1.0) k/uL POC Glucose (mg/dL) (75-99) mg/dL Iron 28 L (65-175) ug/dL TIBC 498 H (228-460) ug/dL % Saturation 5.70 L (15.00-50.00) Transferrin 356.0 H (204.0-354.0) mg/dL Vitamin B12 >2000.0 H (200.0-944.0) pg/mL IgG 598.0 L (700.0-1600.0) mg/dL IgA 57.6 L (60.0-350.0) mg/dL 07/28/21 07/28/21 07/29/21 Range/Units 16:58 20:29 06:00 WBC (3.8-10.6) k/uL RBC (4.30-5.90) m/uL Hgb (13.0-17.5) gm/dL Hct (39.0-53.0) % MCHC (31.0-37.0) g/dL RDW (11.5-15.5) % Neutrophils # (1.3-7.7) k/uL Monocytes # (0-1.0) k/uL POC Glucose (mg/dL) 202 H 158 H 114 H (75-99) mg/dL Iron (65-175) ug/dL TIBC (228-460) ug/dL % Saturation (15.00-50.00) Transferrin (204.0-354.0) mg/dL Vitamin B12 (200.0-944.0) pg/mL IgG (700.0-1600.0) mg/dL IgA (60.0-350.0) mg/dL 07/29/21 Range/Units 11:21 WBC (3.8-10.6) k/uL RBC (4.30-5.90) m/uL Hgb (13.0-17.5) gm/dL Hct (39.0-53.0) % MCHC (31.0-37.0) g/dL RDW (11.5-15.5) % Neutrophils # (1.3-7.7) k/uL Monocytes # (0-1.0) k/uL POC Glucose (mg/dL) 120 H (75-99) mg/dL Iron (65-175) ug/dL TIBC (228-460) ug/dL % Saturation (15.00-50.00) Transferrin (204.0-354.0) mg/dL Vitamin B12 (200.0-944.0) pg/mL IgG (700.0-1600.0) mg/dL IgA (60.0-350.0) mg/dL Assessment and Plan (1) Normocytic anemia Current Visit: Yes Status: Acute Code(s): D64.9 - ANEMIA, UNSPECIFIED SNOMED Code(s): 299728608 (2) Acute exacerbation of congestive heart failure Current Visit: No Status: Acute Code(s): I50.9 - HEART FAILURE, UNSPECIFIED SNOMED Code(s): 430887191 (3) Leukocytosis Current Visit: No Status: Acute Code(s): D72.829 - ELEVATED WHITE BLOOD CELL COUNT, UNSPECIFIED SNOMED Code(s): 723306850 (4) Type 2 diabetes mellitus with peripheral neuropathy Current Visit: No Status: Chronic Code(s): E11.42 - TYPE 2 DIABETES MELLITUS WITH DIABETIC POLYNEUROPATHY SNOMED Code(s): 83235955 Plan: Await completion of full hematological work-up and skeletal survey for recommendations CT contrast contraindication with metformin, message to nursing to assist in primary team recommendation for this. Continue monitoring daily CBC. Suspicious picture for Multiple Myeloma, awaiting final electrophoresis and immunofixation. Difficulty tolerating imaging due to inability to lay flat with pain, ok for pre-medication. Physician Attest: I have completed the full history and physical and agree with above dictation, dictated as a scribe.
[2021-07-29 15:32] LABS: Anisocytosis Moderate; HCT 36.6 % (39.0-53.0); Hypochromasia Marked; MCH 26.3 pg (25.0-35.0); MCV 87.6 fL (80.0-100.0); Mean Platelet Volume 9.2; Microcytosis Slight; Platelet Count 265 k/uL (150-450); Poikilocytosis Moderate; RBC 4.17 m/uL (4.30-5.90); RDW 20.5 % (11.5-15.5); WBC 10.6 k/uL (3.8-10.6)
[2021-07-29 15:35] LABS: ALT 90 U/L (4-49); AST 41 U/L (17-59); African American GFR (CKD) >90 (>60 ml/min/1.73 sqM); Albumin 3.3 g/dL (3.5-5.0); Alkaline Phosphatase 264 U/L (38-126); Anion Gap 7 mmol/L; Blood Urea Nitrogen 33 mg/dL (9-20); Calcium 8.7 mg/dL (8.4-10.2); Carbon Dioxide 26 mmol/L (22-30); Chloride 102 mmol/L (98-107); Glucose 238 mg/dL (74-99); Magnesium 1.6 mg/dL (1.6-2.3); Non-African American GFR(CKD) 88 (>60 ml/min/1.73 sqM); Sodium 135 mmol/L (137-145); Total Bilirubin 1.2 mg/dL (0.2-1.3); Total Protein 5.6 g/dL (6.3-8.2)
[2021-07-29 16:46] LABS: Glucose,Whole Blood 222 mg/dL (75-99)
[2021-07-29 17:25] LABS: Band Neutrophils % 2 %; Eosinophils # (M) 0.11 k/uL (0-0.7); Lymphocytes # (M) 1.17 k/uL (1.0-4.8); Monocytes # (M) 1.48 k/uL (0-1.0); Myelocytes # (M) 0.11 k/uL (0); Myelocytes % 1 %; Neutrophils % (M) 73 %; Nucleated Red Blood Cells 0 /100 WBC (0-0); Total Cells Counted 200
[2021-07-29] MEDS: SODIUM CHLORIDE 0.9% 1,000 ML in EMPTY BAG 1 BAG IV SCH (17:32)
--- NOTE | 2021-07-29 19:09 | P.CARDCATH ---
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 He has been diuresed with some mild improvement in symptoms however still significantly short of breath with minimal activity. Therefore right heart catheterization was recommended to further evaluate. CONSENT:I have discussed the risks, benefits and alternative therapies for the above-mentioned procedure and for both sedation/analgesia as well as necessary blood product administration, if indicated, as they pertain to this patient. The patient has indicated understanding and acceptance of the risks and procedures discussed. PROCEDURE: After the risks, benefits and alternatives of the above mentioned procedure explained in detail with the patient, informed consent was obtained. Patient was taken to the catheterization lab and prepped and draped in usual fashion. 1% lidocaine was used to anesthetize the right brachial area. A 6- Niuean sheath was placed in the right brachial vein using modified Seldinger technique and ultrasound guidance. A 6-Niuean Mayfield-Abrahan catheter was inserted into the right atrium, right ventricle, pulmonary artery, PCWP position and oxygen saturations were obtained. Thermodilution with cardiac output was obtained. The Mayfield-Abrahan catheter was removed. The venous sheath was removed and pressure was held with hemostasis achieved. The patient tolerated the procedure well. Patient was transported back to the post catheterization holding area in stable condition. Conscious Sedation: Patient was monitored under the direct supervision of vision of myself for conscious sedation using Versed and fentanyl for a total duration of 13 minutes HEMODYNAMICS: Right Atrium: 9 RV: 38/1 PA: 40/12, mean 21 PCWP: 15 RA oxygen sat: 35% PA oxygen sat: 41% Pulse ox 90% on room air Cardiac output by thermodilution: 3.45 L/m Cardiac index by thermodilution: 1.85 L/m/m Cardiac output by Elvira: 3.53 L/m Cardiac index by Elvira: 1.89 L/m/m FINAL IMPRESSION: 1. Normal left-sided filling pressures, borderline elevated right-sided filling pressures 2. Decreased cardiac output PLAN: 1. Aggressive risk factor modification per most recent ACC/AHA guidelines. 2. Continue with current maintenance diuresis. Advise discontinuation of beta dipti as he has low cardiac output and BBlocker will be counterproductive.
[2021-07-29 20:04] LABS: Glucose,Whole Blood 243 mg/dL (75-99)
[2021-07-29] MEDS: SODIUM CHLORIDE 0.9% 1,000 ML IV SCH (20:25)
[2021-07-29] MEDS: TEMAZEPAM 15 MG CAP PO SCH (21:12)
[2021-07-29] MEDS: LORATADINE 10 MG TAB PO SCH (21:13)
[2021-07-29] MEDS: methIMAzole 5 MG TAB PO SCH (21:13)
[2021-07-29] MEDS: TAMSULOSIN 0.4 MG CAP.ER.24H PO SCH (21:13)
[2021-07-30] MEDS: HYDROmorphone 0.5 MG/0.5 ML SYRINGE IVP PRN ×4 (05:44→21:48)
[2021-07-30 07:00] LABS: Glucose,Whole Blood 195 mg/dL (75-99)
[2021-07-30] MEDS: SODIUM CHLORIDE 0.9% 1,000 ML in EMPTY BAG 1 BAG IV SCH ×3 (08:14→16:01)
[2021-07-30] MEDS: ASPIRIN 81 MG PO SCH (08:22)
[2021-07-30] MEDS: CITALOPRAM HYDROBROMIDE 20 MG TAB PO SCH (08:22)
[2021-07-30] MEDS: PANTOPRAZOLE 40 MG TABLET PO SCH ×2 (08:22→20:11)
[2021-07-30] MEDS: FUROSEMIDE 40 MG TAB PO SCH ×2 (08:23→16:00)
[2021-07-30] MEDS: ATORVASTATIN 10 MG TAB PO SCH (08:23)
[2021-07-30] MEDS: ISOSORBIDE MONONITRATE ER 60 MG TAB.ER.24H PO SCH (08:23)
[2021-07-30] MEDS: INSULIN ASPART (NovoLOG) 100 UNIT/ML VIAL SQ SCH ×4 (08:23→20:12)
[2021-07-30] MEDS: predniSONE 10 MG TAB PO SCH (08:23)
[2021-07-30] MEDS: FLUTICASONE 50MCG/SPRAY NASAL 16GM EA NOSTRIL SCH ×2 (08:24→20:12)
[2021-07-30 11:09] LABS: Anisocytosis Moderate; Basophils % (A) 1 %; Eosinophils % (A) 1 %; HGB 11.4 gm/dL (13.0-17.5); Hypochromasia Marked; Lymphocytes # (A) 2.7 k/uL (1.0-4.8); Lymphocytes % (A) 22 %; MCH 26.8 pg (25.0-35.0); MCHC 29.9 g/dL (31.0-37.0); MCV 89.6 fL (80.0-100.0); Mean Platelet Volume 8.8; Monocytes # (A) 1.3 k/uL (0-1.0); Monocytes % (A) 10 %; Neutrophils # (A) 7.8 k/uL (1.3-7.7); Neutrophils % (A) 62 %; Platelet Count 253 k/uL (150-450); Poikilocytosis Slight; RBC 4.24 m/uL (4.30-5.90); RDW 20.4 % (11.5-15.5); WBC 12.6 k/uL (3.8-10.6)
[2021-07-30 11:10] LABS: Basophils # (A) 0.1 k/uL (0-0.2); Eosinophils # (A) 0.2 k/uL (0-0.7)
[2021-07-30 11:14] LABS: ALT 77 U/L (4-49); AST 30 U/L (17-59); African American GFR (CKD) >90 (>60 ml/min/1.73 sqM); Albumin 3.6 g/dL (3.5-5.0); Alkaline Phosphatase 288 U/L (38-126); Anion Gap 10 mmol/L; Blood Urea Nitrogen 31 mg/dL (9-20); Carbon Dioxide 25 mmol/L (22-30); Chloride 103 mmol/L (98-107); Glucose 135 mg/dL (74-99); Magnesium 1.6 mg/dL (1.6-2.3); Non-African American GFR(CKD) 87 (>60 ml/min/1.73 sqM); Potassium 3.5 mmol/L (3.5-5.1); Sodium 138 mmol/L (137-145); Total Bilirubin 0.8 mg/dL (0.2-1.3); Total Protein 5.9 g/dL (6.3-8.2)
[2021-07-30 11:40] LABS: Glucose,Whole Blood 147 mg/dL (75-99)
--- NOTE | 2021-07-30 14:52 | P.PN ---
Subjective Progress Note Date: 07/30/21 Gaetano Lorenz, is a year old male who presented to [facility] emergency room with a chief complaint of dizziness near syncope and shortness of breath. He was evaluated in the emergency room vital examination on presentation revealed a temperature of 97.9 pulse 57 respiration 18 blood pressure 91/68 pulse ox 99% on room air. Laboratory data revealed a white blood count of 15.1 hemoglobin 11.7 platelet count 376 sodium 133 BUN 32 creatinine 0.88 glucose 165 lactic acid 2.2 troponin level 1.2 coronary 5PCR was negative Testing in the emergency room revealed EKG revealed sinus bradycardia with first-degree AV block and right bundle branch block, chest x-ray revealed mild pleural reaction at the lung bases. Patient was admitted to medical floor for further evaluation and treatment Past medical history is significant for chronic diastolic congestive heart failure, underlying history of COPD with chronic hypoxic respiratory failure requiring home oxygen use, underlying history of hypertension, underlying history of degenerative disc disease with chronic back pain On review of systems Patient was seen and examined on the medical floor, he is alert and oriented x 3 in no distress, he denies any complaints there is no fever or chills no headache or dizziness no chest pain no shortness of breath no palpitation no cough no nausea or vomiting no abdominal pain no diarrhea no bl ood in the stools no burning with urination no frequency or urgency and no hematuria, there is no weakness or numbness in any of the extremities no change in vision speech or gait. On 07/26/2021 patient was seen and examined on the telemetry floor he is alert and oriented 3 in no apparent distress he is still complaining of shortness of breath with any activity, he can only walk a few steps before having trouble breathing, he is complaining of back pain, otherwise he denies any complaints th ere is no fever or chills no headache or dizziness no chest pain, no cough no nausea or vomiting no abdominal pain no diarrhea no blood in the stools no burning with urination no frequency or urgency and no hematuria On 07/27/2021 patient is alert and oriented 3. Patient is currently being followed by oncology services and cardiology services. At this time patient remained short of breath with activity. Patient denies chest pain. Patient denies nausea vomiting or diarrhea. Patient denies any urinary burning or frequency On 07/28/2021 patient's alert and oriented 3. Patient remained short of breath with activity. Cardiology oncology services are following further workup pending per oncology and cardiology services. Patient reports occasional shortness breath and chest pain. Patient denies nausea vomiting or diarrhea. Patient denies any urinary burning or frequency On 07/29/2021 patient's alert and oriented 3. RHC test and bone scan to be completed today. Patient remains with episodes of shortness of breath. On 07/30/2021 patient was seen and examined on the medical floor he is alert and oriented 3 in no apparent distress he is complaining of back pain and complai aubrie of shortness of breath with activity, otherwise he denies any complaints there is no fever or chills no headache or dizziness no chest pain, no nausea or vomiting no abdominal pain no diarrhea no blood in the stools no burning with urination no frequency or urgency and no hematuria, patient underwent cardiac catheterization yesterday he is followed closely by cardiology and hematology plan is for possible bone marrow biopsy on Sunday Objective - Vital Signs Vital signs: Vital Signs Temp 97.8 F 07/30/21 04:00 Pulse 74 07/30/21 08:00 Resp 16 07/30/21 08:00 BP 104/63 07/30/21 08:00 Pulse Ox 95 07/30/21 08:30 Intake & Output 07/29/21 07/30/21 07/30/21 18:59 06:59 18:59 Intake Total 290 Balance 290 Weight 75.7 kg 76.1 kg Intake: IV 50 Oral 240 Other: Voiding Method Toilet Toilet Urinal Urinal - Exam In general patient is alert and oriented x 3 in no distress HEENT head normocephalic and atraumatic Neck is supple no JVD no goiter no lymphadenopathy no carotid bruit Chest examination is clear to auscultation no crackles no wheezing Cardiac exam reveals regular heart sounds S1 and S2 no gallops no murmurs Abdomen is soft nontender no organomegaly with normal bowel sounds Extremity exam reveals no edema no cyanosis or clubbing Neurological examination reveals no gross focal deficits - Labs CBC & Chem 7: 07/30/21 10:36 07/30/21 10:36 Labs: Abnormal Lab Results - Last 24 Hours (Table) 07/29/21 07/29/21 07/29/21 Range/Units : 15:00 15:00 RBC 4.17 L (4.30-5.90) m/uL Hgb 11.0 L (13.0-17.5) gm/dL Hct 36.6 L (39.0-53.0) % MCHC 30.0 L (31.0-37.0) g/dL RDW 20.5 H (11.5-15.5) % Neutrophils # (Manual) 7.90 H (1.3-7.7) k/uL Monocytes # (Manual) 1.48 H (0-1.0) k/uL Myelocytes # (Manual) 0.11 H (0) k/uL Sodium 135 L (137-145) mmol/L BUN 33 H (9-20) mg/dL Glucose 238 H (74-99) mg/dL POC Glucose (mg/dL) 120 H (75-99) mg/dL ALT 90 H (4-49) U/L Alkaline Phosphatase 264 H (38-126) U/L Total Protein 5.6 L (6.3-8.2) g/dL Albumin 3.3 L (3.5-5.0) g/dL 07/29/21 07/29/21 07/30/21 Range/Units 16:44 20:02 06:03 RBC (4.30-5.90) m/uL Hgb (13.0-17.5) gm/dL Hct (39.0-53.0) % MCHC (31.0-37.0) g/dL RDW (11.5-15.5) % Neutrophils # (Manual) (1.3-7.7) k/uL Monocytes # (Manual) (0-1.0) k/uL Myelocytes # (Manual) (0) k/uL Sodium (137-145) mmol/L BUN (9-20) mg/dL Glucose (74-99) mg/dL POC Glucose (mg/dL) 222 H 243 H 195 H (75-99) mg/dL ALT (4-49) U/L Alkaline Phosphatase (38-126) U/L Total Protein (6.3-8.2) g/dL Albumin (3.5-5.0) g/dL Assessment and Plan Plan: Elevated troponin levels, possible non St elevation myocardial infarction, however patient had normal cardiac catheterization recently, he continues to come to the hospital with elevated troponin, 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 Cerda. 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 Oncology service is following At this time patient is admitted to telemetry floor Oncology and hematology services following computed tomography scan and bone scan ordered per oncology R HC test to be completed 07/29/2021
[2021-07-30] MEDS: IBUPROFEN 800 MG TAB PO PRN (15:59)
[2021-07-30] MEDS: DOCUSATE 100 MG CAP PO SCH ×2 (16:00→20:14)
[2021-07-30 16:38] LABS: Glucose,Whole Blood 175 mg/dL (75-99)
[2021-07-30] MEDS: SODIUM CHLORIDE 0.9% 1,000 ML IV SCH (17:30)
--- NOTE | 2021-07-30 19:04 | P.PN ---
Subjective HISTORY OF PRESENT ILLNESS: This is a 71-year-old male with a past medical history significant for diabetes, hypertension, hyperlipidemia, and congestive heart failure. Patient follows in the office with Dr. Young. We have been asked to see the patient in consultation for abnormal troponins. Patient examined at the bedside. Patient was recently admitted to [facility] a few weeks ago for CHF. He states he was doing well post discharge until a couple days ago when he became short of breath. He reports having shortness of breath when walking around his house and climbing a flight of stairs to get the bathroom. He also reports mild chest pressure over the past two days with no other associated symptoms. The pain is not worse with deep inspiration or chest wall palpation. At the time of examination, the patient denies chest pain or pressure. EKG reveals sinus mechanism with right bundle branch block. No evidence of acute ischemia. Chest xray mild pleural reaction the lung bases. There is improvement in the pulmonary vascularity and clearing of most of the pleural fluid compared to last exam. Laboratory data: WBC 15.3. Hemoglobin 10.9. Platelet count 338. D-dimer 0.56. Sodium 133. Potassium 4.8. BUN 32. Creatinine 0.8. Lactic acid 2.2. Troponin 1.200. 1.370. 1.410. ProBNP 12,500 Current home cardiac medications include spironolactone 12.5 mg daily, metoprolol tartrate 25 mg twice a day, Lasix 40 mg twice a day, Lipitor 10 mg daily Most recent echocardiogram obtained in June 2021 revealed ejection fraction 50-55%, basal inferior LV wall hypokinesis, mild mitral regurgitation, mild tricuspid regurgitation. Previous echocardiogram completed in February 2021 revealed ejection fraction 60- 65%. Cardiac catheterization history: March 2021 revealing normal coronary arteries with minimal intimal plaque. Maximum medical therapy was recommended. Addendum entered and electronically signed by Glenroy Okeefe DO 07/25/21 17:12: Patient with symptoms consistent with angina and heart failure with previously mildly elevated troponins and normal coronaries cath 03/2021. 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 For microvascular dysfunction we will add Imdur. Patient also lightheaded at times and we will stop Aldactone, check orthostatics. Possibility of orthostatics intolerance from peripheral neuropathy with amyloid. We will check repeat limited echo with strain. 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 Continue diuretics. 07/26/2021 Patient examined this morning at the bedside. Patient continues to report shortness of breath with ambulation to the bathroom. He remains on IV diuretics. Repeat echocardiogram performed revealed ejection fraction 40-45%, severe LVH, cavity size decreased, basal inferior lateral hypokinesis, with possible amyloidosis. 07/27/2021 Patient examined at the bedside. Patient states he has mild chest pressure today. Patient continues to report shortness of breath with activity. He denies shortness of breath at rest. He remains on IV Lasix. Free kappa 37.51. Free lambda 1.00. Hematology is following. 07/28/2021 Patient examined at the bedside. Patient denies chest pain. He continues to report shortness of breath with activity. He remains on IV Lasix. BUN 38. Creatinine 0.82. 07/30 Patient seen and examined. Patient underwent right heart catheterization yesterday which showed relatively normal left and right-sided filling pressures. Patient did however have significant decreased cardiac output and cardiac index. Therefore his metoprolol was stopped. He states he may have felt somewhat better able to walk the halls with less dyspnea over the last 24 hours. Still awaiting further workup from hematology for possible multiple myeloma. PHYSICAL EXAM: VITAL SIGNS: Reviewed. GENERAL: Well-developed in no acute distress. HEENT: Head is normocephalic. Pupils are equal, round. Sclerae anicteric. Mucous membranes of the mouth are moist. Neck supple. No JVD or thyromegaly LUNGS: Respirations even and unlabored. Lungs diminished to auscultation bilaterally. HEART: Regular rate and rhythm. S1 and S2 heard. EXTREMITIES: Normal range of motion. No clubbing or cyanosis. Peripheral pulses intact. 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 Heart catheterization yesterday showed relatively controlled pressures however decreased cardiac output. Avoid beta dipti given decreased cardiac output. Further workup per hematology to evaluate for multiple myeloma which can be seen coinciding with AL cardiac amyloid. Objective - Vital Signs Vital signs: Vital Signs Temp 97.8 F 07/30/21 04:00 Pulse 76 07/30/21 16:00 Resp 16 07/30/21 16:00 BP 109/68 07/30/21 16:00 Pulse Ox 95 07/30/21 16:00 Intake & Output 07/30/21 07/30/21 07/31/21 06:59 18:59 05:59 Intake Total 417 Balance 417 Weight 76.1 kg Intake: Oral 417 Other: Voiding Method Toilet Toilet Urinal Urinal - Labs CBC & Chem 7: 07/30/21 10:36 07/30/21 10:36 Labs: Abnormal Lab Results - Last 24 Hours (Table) 07/29/21 07/30/21 07/30/21 Range/Units 20:02 06:03 10:36 WBC 12.6 H (3.8-10.6) k/uL RBC 4.24 L (4.30-5.90) m/uL Hgb 11.4 L (13.0-17.5) gm/dL Hct 38.0 L (39.0-53.0) % MCHC 29.9 L (31.0-37.0) g/dL RDW 20.4 H (11.5-15.5) % Neutrophils # 7.8 H (1.3-7.7) k/uL Monocytes # 1.3 H (0-1.0) k/uL BUN (9-20) mg/dL Glucose (74-99) mg/dL POC Glucose (mg/dL) 243 H 195 H (75-99) mg/dL ALT (4-49) U/L Alkaline Phosphatase (38-126) U/L Total Protein (6.3-8.2) g/dL 07/30/21 07/30/21 07/30/21 Range/Units 10:36 11:38 16:36 WBC (3.8-10.6) k/uL RBC (4.30-5.90) m/uL Hgb (13.0-17.5) gm/dL Hct (39.0-53.0) % MCHC (31.0-37.0) g/dL RDW (11.5-15.5) % Neutrophils # (1.3-7.7) k/uL Monocytes # (0-1.0) k/uL BUN 31 H (9-20) mg/dL Glucose 135 H (74-99) mg/dL POC Glucose (mg/dL) 147 H 175 H (75-99) mg/dL ALT 77 H (4-49) U/L Alkaline Phosphatase 288 H (38-126) U/L Total Protein 5.9 L (6.3-8.2) g/dL
[2021-07-30 19:42] LABS: Glucose,Whole Blood 224 mg/dL (75-99)
[2021-07-30] MEDS: LORATADINE 10 MG TAB PO SCH (20:11)
[2021-07-30] MEDS: TAMSULOSIN 0.4 MG CAP.ER.24H PO SCH (20:11)
[2021-07-30] MEDS: TEMAZEPAM 15 MG CAP PO SCH (20:11)
[2021-07-31] MEDS: HYDROmorphone 0.5 MG/0.5 ML SYRINGE IVP PRN ×5 (01:49→20:17)
[2021-07-31 06:17] LABS: Glucose,Whole Blood 155 mg/dL (75-99)
[2021-07-31] MEDS: INSULIN ASPART (NovoLOG) 100 UNIT/ML VIAL SQ SCH ×4 (06:17→20:17)
[2021-07-31] MEDS: polyethylene glycoL 3350 17 GM POWD.PACK PO SCH (07:45)
[2021-07-31] MEDS: CITALOPRAM HYDROBROMIDE 20 MG TAB PO SCH (07:45)
[2021-07-31] MEDS: DOCUSATE 100 MG CAP PO SCH ×2 (07:45→20:17)
[2021-07-31] MEDS: ASPIRIN 81 MG PO SCH (07:46)
[2021-07-31] MEDS: PANTOPRAZOLE 40 MG TABLET PO SCH ×2 (07:46→20:17)
[2021-07-31] MEDS: predniSONE 10 MG TAB PO SCH (07:46)
[2021-07-31] MEDS: FUROSEMIDE 40 MG TAB PO SCH ×2 (07:46→15:57)
[2021-07-31] MEDS: ATORVASTATIN 10 MG TAB PO SCH (07:46)
[2021-07-31] MEDS: methIMAzole 5 MG TAB PO SCH (07:47)
[2021-07-31] MEDS: ISOSORBIDE MONONITRATE ER 60 MG TAB.ER.24H PO SCH (07:52)
[2021-07-31] MEDS: FLUTICASONE 50MCG/SPRAY NASAL 16GM EA NOSTRIL SCH ×2 (07:53→20:16)
--- NOTE | 2021-07-31 10:35 | P.PN ---
Subjective Progress Note Date: 07/31/21 Gaetano Lorenz, is a year old male who presented to [facility] emergency room with a chief complaint of dizziness near syncope and shortness of breath. He was evaluated in the emergency room vital examination on presentation revealed a temperature of 97.9 pulse 57 respiration 18 blood pressure 91/68 pulse ox 99% on room air. Laboratory data revealed a white blood count of 15.1 hemoglobin 11.7 platelet count 376 sodium 133 BUN 32 creatinine 0.88 glucose 165 lactic acid 2.2 troponin level 1.2 coronary 5PCR was negative Testing in the emergency room revealed EKG revealed sinus bradycardia with first-degree AV block and right bundle branch block, chest x-ray revealed mild pleural reaction at the lung bases. Patient was admitted to medical floor for further evaluation and treatment Past medical history is significant for chronic diastolic congestive heart failure, underlying history of COPD with chronic hypoxic respiratory failure requiring home oxygen use, underlying history of hypertension, underlying history of degenerative disc disease with chronic back pain On review of systems Patient was seen and examined on the medical floor, he is alert and oriented x 3 in no distress, he denies any complaints there is no fever or chills no headache or dizziness no chest pain no shortness of breath no palpitation no cough no nausea or vomiting no abdominal pain no diarrhea no bl ood in the stools no burning with urination no frequency or urgency and no hematuria, there is no weakness or numbness in any of the extremities no change in vision speech or gait. On 07/26/2021 patient was seen and examined on the telemetry floor he is alert and oriented 3 in no apparent distress he is still complaining of shortness of breath with any activity, he can only walk a few steps before having trouble breathing, he is complaining of back pain, otherwise he denies any complaints th ere is no fever or chills no headache or dizziness no chest pain, no cough no nausea or vomiting no abdominal pain no diarrhea no blood in the stools no burning with urination no frequency or urgency and no hematuria On 07/27/2021 patient is alert and oriented 3. Patient is currently being followed by oncology services and cardiology services. At this time patient remained short of breath with activity. Patient denies chest pain. Patient denies nausea vomiting or diarrhea. Patient denies any urinary burning or frequency On 07/28/2021 patient's alert and oriented 3. Patient remained short of breath with activity. Cardiology oncology services are following further workup pending per oncology and cardiology services. Patient reports occasional shortness breath and chest pain. Patient denies nausea vomiting or diarrhea. Patient denies any urinary burning or frequency On 07/29/2021 patient's alert and oriented 3. RHC test and bone scan to be completed today. Patient remains with episodes of shortness of breath. On 07/30/2021 patient was seen and examined on the medical floor he is alert and oriented 3 in no apparent distress he is complaining of back pain and complai aubrie of shortness of breath with activity, otherwise he denies any complaints there is no fever or chills no headache or dizziness no chest pain, no nausea or vomiting no abdominal pain no diarrhea no blood in the stools no burning with urination no frequency or urgency and no hematuria, patient underwent cardiac catheterization yesterday he is followed closely by cardiology and hematology plan is for possible bone marrow biopsy on Sunday07/31/2021 patient's alert and oriented 3. Patient status post right heart cath plans for possible bone marrow biopsy tomorrow per hematology services. Patient still complaining of occasional shortness breath with activity. Patient denies chest pain. Patient denies nausea vomiting or diarrhea. Patient denies any urinary burning or frequency Objective - Vital Signs Vital signs: Vital Signs Temp 97.8 F 07/30/21 04:00 Pulse 74 07/31/21 07:54 Resp 16 07/31/21 07:54 BP 114/67 07/31/21 07:54 Pulse Ox 97 07/31/21 07:54 Intake & Output 07/30/21 07/31/21 07/31/21 19:59 06:59 18:59 Intake Total 360 Balance 360 Weight Intake: Oral 360 Other: Voiding Method Toilet Urinal - Exam In general patient is alert and oriented x 3 in no distress HEENT head normocephalic and atraumatic Neck is supple no JVD no goiter no lymphadenopathy no carotid bruit Chest examination is clear to auscultation no crackles no wheezing Cardiac exam reveals regular heart sounds S1 and S2 no gallops no murmurs Abdomen is soft nontender no organomegaly with normal bowel sounds Extremity exam reveals no edema no cyanosis or clubbing Neurological examination reveals no gross focal deficits - Labs CBC & Chem 7: 07/30/21 10:36 07/30/21 10:36 Labs: Abnormal Lab Results - Last 24 Hours (Table) 07/30/21 07/30/21 07/30/21 Range/Units 11:38 16:36 19:39 POC Glucose (mg/dL) 147 H 175 H 224 H (75-99) mg/dL 07/31/21 Range/Units 06:13 POC Glucose (mg/dL) 155 H (75-99) mg/dL Assessment and Plan Plan: Elevated troponin levels, possible non St elevation myocardial infarction, however patient had normal cardiac catheterization recently, he continues to come to the hospital with elevated troponin, 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 Cerda. 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 Oncology service is following At this time patient is admitted to telemetry floor Oncology and cardiology services following Bone marrow biopsy possibly to be schedule 08/01/2023 1 Right heart cath completed on 07/29/2021
[2021-07-31 11:00] LABS: Anisocytosis Moderate; Basophils # (A) 0.1 k/uL (0-0.2); Basophils % (A) 1 %; Eosinophils # (A) 0.1 k/uL (0-0.7); Eosinophils % (A) 1 %; HCT 34.3 % (39.0-53.0); HGB 10.6 gm/dL (13.0-17.5); Hypochromasia Marked; Lymphocytes # (A) 1.6 k/uL (1.0-4.8); Lymphocytes % (A) 13 %; MCH 26.8 pg (25.0-35.0); MCHC 30.9 g/dL (31.0-37.0); MCV 86.5 fL (80.0-100.0); Mean Platelet Volume 9.3; Microcytosis Slight; Monocytes # (A) 1.1 k/uL (0-1.0); Monocytes % (A) 9 %; Neutrophils # (A) 9.2 k/uL (1.3-7.7); Neutrophils % (A) 75 %; Platelet Count 244 k/uL (150-450); Poikilocytosis Moderate; RBC 3.96 m/uL (4.30-5.90); RDW 20.4 % (11.5-15.5); WBC 12.3 k/uL (3.8-10.6)
[2021-07-31 11:21] LABS: ALT 61 U/L (4-49); AST 28 U/L (17-59); African American GFR (CKD) >90 (>60 ml/min/1.73 sqM); Albumin 3.4 g/dL (3.5-5.0); Alkaline Phosphatase 302 U/L (38-126); Anion Gap 8 mmol/L; Blood Urea Nitrogen 28 mg/dL (9-20); Calcium 8.7 mg/dL (8.4-10.2); Carbon Dioxide 25 mmol/L (22-30); Chloride 102 mmol/L (98-107); Glucose 183 mg/dL (74-99); Non-African American GFR(CKD) 86 (>60 ml/min/1.73 sqM); Sodium 135 mmol/L (137-145); Total Protein 5.6 g/dL (6.3-8.2)
[2021-07-31] MEDS: SODIUM CHLORIDE 0.9% 1,000 ML in EMPTY BAG 1 BAG IV SCH (11:40)
[2021-07-31 11:45] LABS: Glucose,Whole Blood 194 mg/dL (75-99)
--- NOTE | 2021-07-31 15:03 | XR ---
EXAMINATION TYPE: XR bone survey complete DATE OF EXAM: 07/31/2021 COMPARISON: NONE HISTORY: Myeloma TECHNIQUE: 16 views FINDINGS: Thoracic and lumbar vertebra have fairly normal alignment. There is no compression fracture . There is left knee prosthesis. Pelvic ring is intact. Sacroiliac joints appear intact. There is mil d degenerative disc changes at L4-5 and L5-S1. Abdominal aorta is atheromatous. Left and right femur are intact. Left and right humerus are intact. I see no focal rib destruction. There is some infiltra te and pleural fluid at the left lung base. The calvarium is intact. IMPRESSION: No convincing evidence for multiple myeloma. Bilateral basilar pulmonary infiltrates and pleural fluid. Lung abnormalities are new compared to [facility] x-ray of 07/24/2021.
[2021-07-31] MEDS: SODIUM CHLORIDE 0.9% 1,000 ML IV SCH (15:57)
[2021-07-31 16:25] LABS: Glucose,Whole Blood 199 mg/dL (75-99)
--- NOTE | 2021-07-31 17:10 | P.PN ---
Subjective HISTORY OF PRESENT ILLNESS: This is a 71-year-old male with a past medical history significant for diabetes, hypertension, hyperlipidemia, and congestive heart failure. Patient follows in the office with Dr. Young. We have been asked to see the patient in consultation for abnormal troponins. Patient examined at the bedside. Patient was recently admitted to [facility] a few weeks ago for CHF. He states he was doing well post discharge until a couple days ago when he became short of breath. He reports having shortness of breath when walking around his house and climbing a flight of stairs to get the bathroom. He also reports mild chest pressure over the past two days with no other associated symptoms. The pain is not worse with deep inspiration or chest wall palpation. At the time of examination, the patient denies chest pain or pressure. EKG reveals sinus mechanism with right bundle branch block. No evidence of acute ischemia. Chest xray mild pleural reaction the lung bases. There is improvement in the pulmonary vascularity and clearing of most of the pleural fluid compared to last exam. Laboratory data: WBC 15.3. Hemoglobin 10.9. Platelet count 338. D-dimer 0.56. Sodium 133. Potassium 4.8. BUN 32. Creatinine 0.8. Lactic acid 2.2. Troponin 1.200. 1.370. 1.410. ProBNP 12,500 Current home cardiac medications include spironolactone 12.5 mg daily, metoprolol tartrate 25 mg twice a day, Lasix 40 mg twice a day, Lipitor 10 mg daily Most recent echocardiogram obtained in June 2021 revealed ejection fraction 50-55%, basal inferior LV wall hypokinesis, mild mitral regurgitation, mild tricuspid regurgitation. Previous echocardiogram completed in February 2021 revealed ejection fraction 60- 65%. Cardiac catheterization history: March 2021 revealing normal coronary arteries with minimal intimal plaque. Maximum medical therapy was recommended. Addendum entered and electronically signed by Glenroy Okeefe DO 07/25/21 17:12: Patient with symptoms consistent with angina and heart failure with previously mildly elevated troponins and normal coronaries cath 03/2021. 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 For microvascular dysfunction we will add Imdur. Patient also lightheaded at times and we will stop Aldactone, check orthostatics. Possibility of orthostatics intolerance from peripheral neuropathy with amyloid. We will check repeat limited echo with strain. 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 Continue diuretics. 07/26/2021 Patient examined this morning at the bedside. Patient continues to report shortness of breath with ambulation to the bathroom. He remains on IV diuretics. Repeat echocardiogram performed revealed ejection fraction 40-45%, severe LVH, cavity size decreased, basal inferior lateral hypokinesis, with possible amyloidosis. 07/27/2021 Patient examined at the bedside. Patient states he has mild chest pressure today. Patient continues to report shortness of breath with activity. He denies shortness of breath at rest. He remains on IV Lasix. Free kappa 37.51. Free lambda 1.00. Hematology is following. 07/28/2021 Patient examined at the bedside. Patient denies chest pain. He continues to report shortness of breath with activity. He remains on IV Lasix. BUN 38. Creatinine 0.82. 07/30 Patient seen and examined. Patient underwent right heart catheterization yesterday which showed relatively normal left and right-sided filling pressures. Patient did however have significant decreased cardiac output and cardiac index. Therefore his metoprolol was stopped. He states he may have felt somewhat better able to walk the halls with less dyspnea over the last 24 hours. Still awaiting further workup from hematology for possible multiple myeloma. 07/31 Patient seen and examined. Patient states he had an episode of feeling somewhat lightheaded after he came out of the bathroom. He denies any significant lightheadedness however. He has been mistakenly receiving IV fluids at 50 mL per hour over the last 24 hours. Patient had bone scan which showed no significant multiple myeloma however appears to be new infiltrates. PHYSICAL EXAM: VITAL SIGNS: Reviewed. GENERAL: Well-developed in no acute distress. HEENT: Head is normocephalic. Pupils are equal, round. Sclerae anicteric. Mucous membranes of the mouth are moist. Neck supple. No JVD or thyromegaly LUNGS: Respirations even and unlabored. Lungs diminished to auscultation bilaterally. HEART: Regular rate and rhythm. S1 and S2 heard. EXTREMITIES: Normal range of motion. No clubbing or cyanosis. Peripheral pulses intact. 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 Further workup per hematology to evaluate for multiple myeloma which can be seen coinciding with AL cardiac amyloid. No beta dipti given decreased cardiac output and patient needs compensatory tachycardia to support output Continue supportive care. Compression stockings which may help with his lightheadedness as can also have significant orthostatic intolerance with amyloid. Objective - Vital Signs Vital signs: Vital Signs Temp 97.8 F 07/30/21 04:00 Pulse 80 07/31/21 16:00 Resp 16 07/31/21 16:00 BP 120/67 07/31/21 16:00 Pulse Ox 96 07/31/21 16:00 Intake & Output 07/30/21 07/31/21 07/31/21 19:59 06:59 18:59 Intake Total 597 Balance 597 Weight Intake: Oral 597 Other: Voiding Method Toilet Urinal - Labs CBC & Chem 7: 07/31/21 10:30 07/31/21 10:30 Labs: Abnormal Lab Results - Last 24 Hours (Table) 07/30/21 07/31/21 07/31/21 Range/Units 19:39 06:13 10:30 WBC 12.3 H (3.8-10.6) k/uL RBC 3.96 L (4.30-5.90) m/uL Hgb 10.6 L (13.0-17.5) gm/dL Hct 34.3 L (39.0-53.0) % MCHC 30.9 L (31.0-37.0) g/dL RDW 20.4 H (11.5-15.5) % Neutrophils # 9.2 H (1.3-7.7) k/uL Monocytes # 1.1 H (0-1.0) k/uL Sodium (137-145) mmol/L BUN (9-20) mg/dL Glucose (74-99) mg/dL POC Glucose (mg/dL) 224 H 155 H (75-99) mg/dL ALT (4-49) U/L Alkaline Phosphatase (38-126) U/L Total Protein (6.3-8.2) g/dL Albumin (3.5-5.0) g/dL 07/31/21 07/31/21 07/31/21 Range/Units 10:30 11:43 16:23 WBC (3.8-10.6) k/uL RBC (4.30-5.90) m/uL Hgb (13.0-17.5) gm/dL Hct (39.0-53.0) % MCHC (31.0-37.0) g/dL RDW (11.5-15.5) % Neutrophils # (1.3-7.7) k/uL Monocytes # (0-1.0) k/uL Sodium 135 L (137-145) mmol/L BUN 28 H (9-20) mg/dL Glucose 183 H (74-99) mg/dL POC Glucose (mg/dL) 194 H 199 H (75-99) mg/dL ALT 61 H (4-49) U/L Alkaline Phosphatase 302 H (38-126) U/L Total Protein 5.6 L (6.3-8.2) g/dL Albumin 3.4 L (3.5-5.0) g/dL
[2021-07-31 20:02] LABS: Glucose,Whole Blood 260 mg/dL (75-99)
[2021-07-31] MEDS: TEMAZEPAM 15 MG CAP PO SCH (20:17)
[2021-07-31] MEDS: TAMSULOSIN 0.4 MG CAP.ER.24H PO SCH (20:17)
[2021-08-01] MEDS: HYDROmorphone 0.5 MG/0.5 ML SYRINGE IVP PRN ×6 (00:42→20:27)
[2021-08-01 06:10] LABS: Glucose,Whole Blood 158 mg/dL (75-99)
[2021-08-01] MEDS: INSULIN ASPART (NovoLOG) 100 UNIT/ML VIAL SQ SCH ×4 (06:38→20:27)
[2021-08-01 08:47] LABS: Anisocytosis Moderate; Basophils # (A) 0.1 k/uL (0-0.2); Basophils % (A) 1 %; Eosinophils # (A) 0.1 k/uL (0-0.7); Eosinophils % (A) 1 %; HCT 33.8 % (39.0-53.0); HGB 10.5 gm/dL (13.0-17.5); Hypochromasia Moderate; Lymphocytes # (A) 2.6 k/uL (1.0-4.8); Lymphocytes % (A) 22 %; MCH 26.9 pg (25.0-35.0); MCHC 31.1 g/dL (31.0-37.0); MCV 86.3 fL (80.0-100.0); Mean Platelet Volume 9.4; Microcytosis Slight; Monocytes # (A) 1.1 k/uL (0-1.0); Monocytes % (A) 10 %; Neutrophils # (A) 7.4 k/uL (1.3-7.7); Neutrophils % (A) 64 %; Platelet Count 236 k/uL (150-450); Poikilocytosis Moderate; RBC 3.91 m/uL (4.30-5.90); RDW 20.6 % (11.5-15.5); WBC 11.6 k/uL (3.8-10.6)
[2021-08-01 08:53] LABS: ALT 53 U/L (4-49); AST 27 U/L (17-59); African American GFR (CKD) >90 (>60 ml/min/1.73 sqM); Albumin 3.2 g/dL (3.5-5.0); Alkaline Phosphatase 324 U/L (38-126); Anion Gap 9 mmol/L; Blood Urea Nitrogen 27 mg/dL (9-20); Calcium 8.7 mg/dL (8.4-10.2); Carbon Dioxide 27 mmol/L (22-30); Chloride 101 mmol/L (98-107); Glucose 137 mg/dL (74-99); Non-African American GFR(CKD) 85 (>60 ml/min/1.73 sqM); Potassium 3.7 mmol/L (3.5-5.1); Sodium 137 mmol/L (137-145); Total Bilirubin 0.9 mg/dL (0.2-1.3); Total Protein 5.4 g/dL (6.3-8.2)
[2021-08-01] MEDS: DOCUSATE 100 MG CAP PO SCH ×2 (09:13→20:27)
[2021-08-01] MEDS: ISOSORBIDE MONONITRATE ER 60 MG TAB.ER.24H PO SCH (09:13)
[2021-08-01] MEDS: ASPIRIN 81 MG PO SCH (09:13)
[2021-08-01] MEDS: ATORVASTATIN 10 MG TAB PO SCH (09:13)
[2021-08-01] MEDS: predniSONE 10 MG TAB PO SCH (09:13)
[2021-08-01] MEDS: CITALOPRAM HYDROBROMIDE 20 MG TAB PO SCH (09:13)
[2021-08-01] MEDS: FUROSEMIDE 40 MG TAB PO SCH ×2 (09:13→17:03)
[2021-08-01] MEDS: polyethylene glycoL 3350 17 GM POWD.PACK PO SCH (09:13)
[2021-08-01] MEDS: PANTOPRAZOLE 40 MG TABLET PO SCH ×2 (09:13→20:27)
[2021-08-01] MEDS: FLUTICASONE 50MCG/SPRAY NASAL 16GM EA NOSTRIL SCH ×2 (09:16→20:29)
--- NOTE | 2021-08-01 09:39 | P.PN ---
Subjective Progress Note Date: 08/01/21 Gaetano Lorenz, is a year old male who presented to [facility] emergency room with a chief complaint of dizziness near syncope and shortness of breath. He was evaluated in the emergency room vital examination on presentation revealed a temperature of 97.9 pulse 57 respiration 18 blood pressure 91/68 pulse ox 99% on room air. Laboratory data revealed a white blood count of 15.1 hemoglobin 11.7 platelet count 376 sodium 133 BUN 32 creatinine 0.88 glucose 165 lactic acid 2.2 troponin level 1.2 coronary 5PCR was negative Testing in the emergency room revealed EKG revealed sinus bradycardia with first-degree AV block and right bundle branch block, chest x-ray revealed mild pleural reaction at the lung bases. Patient was admitted to medical floor for further evaluation and treatment Past medical history is significant for chronic diastolic congestive heart failure, underlying history of COPD with chronic hypoxic respiratory failure requiring home oxygen use, underlying history of hypertension, underlying history of degenerative disc disease with chronic back pain On review of systems Patient was seen and examined on the medical floor, he is alert and oriented x 3 in no distress, he denies any complaints there is no fever or chills no headache or dizziness no chest pain no shortness of breath no palpitation no cough no nausea or vomiting no abdominal pain no diarrhea no bl ood in the stools no burning with urination no frequency or urgency and no hematuria, there is no weakness or numbness in any of the extremities no change in vision speech or gait. On 07/26/2021 patient was seen and examined on the telemetry floor he is alert and oriented 3 in no apparent distress he is still complaining of shortness of breath with any activity, he can only walk a few steps before having trouble breathing, he is complaining of back pain, otherwise he denies any complaints th ere is no fever or chills no headache or dizziness no chest pain, no cough no nausea or vomiting no abdominal pain no diarrhea no blood in the stools no burning with urination no frequency or urgency and no hematuria On 07/27/2021 patient is alert and oriented 3. Patient is currently being followed by oncology services and cardiology services. At this time patient remained short of breath with activity. Patient denies chest pain. Patient denies nausea vomiting or diarrhea. Patient denies any urinary burning or frequency On 07/28/2021 patient's alert and oriented 3. Patient remained short of breath with activity. Cardiology oncology services are following further workup pending per oncology and cardiology services. Patient reports occasional shortness breath and chest pain. Patient denies nausea vomiting or diarrhea. Patient denies any urinary burning or frequency On 07/29/2021 patient's alert and oriented 3. RHC test and bone scan to be completed today. Patient remains with episodes of shortness of breath. On 07/30/2021 patient was seen and examined on the medical floor he is alert and oriented 3 in no apparent distress he is complaining of back pain and complai aubrie of shortness of breath with activity, otherwise he denies any complaints there is no fever or chills no headache or dizziness no chest pain, no nausea or vomiting no abdominal pain no diarrhea no blood in the stools no burning with urination no frequency or urgency and no hematuria, patient underwent cardiac catheterization yesterday he is followed closely by cardiology and hematology plan is for possible bone marrow biopsy on Sunday07/31/2021 patient's alert and oriented 3. Patient status post right heart cath plans for possible bone marrow biopsy tomorrow per hematology services. Patient still complaining of occasional shortness breath with activity. Patient denies chest pain. Patient denies nausea vomiting or diarrhea. Patient denies any urinary burning or frequency On 08/01/2021 patient's alert and oriented 3. Plans for bone marrow biopsy today per hematology services. Patient still complaining of intermittent episodes of shortness of breath. Patient denies chest pain. Patient denies nausea vomiting or diarrhea. Patient denies any urinary burning or frequency Objective - Vital Signs Vital signs: Vital Signs Temp 97.3 F L 07/31/21 21:00 Pulse 80 08/01/21 04:00 Resp 18 08/01/21 04:00 BP 100/66 08/01/21 04:00 Pulse Ox 96 08/01/21 04:00 Intake & Output 07/31/21 08/01/21 08/01/21 18:59 06:59 18:59 Intake Total 834 118 Balance 834 118 Weight 78.2 kg Intake: Oral 834 118 Other: Voiding Method Toilet Urinal - Exam In general patient is alert and oriented x 3 in no distress HEENT head normocephalic and atraumatic Neck is supple no JVD no goiter no lymphadenopathy no carotid bruit Chest examination is clear to auscultation no crackles no wheezing Cardiac exam reveals regular heart sounds S1 and S2 no gallops no murmurs Abdomen is soft nontender no organomegaly with normal bowel sounds Extremity exam reveals no edema no cyanosis or clubbing Neurological examination reveals no gross focal deficits - Labs CBC & Chem 7: 08/01/21 07:18 08/01/21 07:18 Labs: Abnormal Lab Results - Last 24 Hours (Table) 07/31/21 07/31/21 07/31/21 Range/Units 10:30 10:30 11:43 WBC 12.3 H (3.8-10.6) k/uL RBC 3.96 L (4.30-5.90) m/uL Hgb 10.6 L (13.0-17.5) gm/dL Hct 34.3 L (39.0-53.0) % MCHC 30.9 L (31.0-37.0) g/dL RDW 20.4 H (11.5-15.5) % Neutrophils # 9.2 H (1.3-7.7) k/uL Monocytes # 1.1 H (0-1.0) k/uL Sodium 135 L (137-145) mmol/L BUN 28 H (9-20) mg/dL Glucose 183 H (74-99) mg/dL POC Glucose (mg/dL) 194 H (75-99) mg/dL ALT 61 H (4-49) U/L Alkaline Phosphatase 302 H (38-126) U/L Total Protein 5.6 L (6.3-8.2) g/dL Albumin 3.4 L (3.5-5.0) g/dL 07/31/21 07/31/21 08/01/21 Range/Units 16:23 20:01 06:07 WBC (3.8-10.6) k/uL RBC (4.30-5.90) m/uL Hgb (13.0-17.5) gm/dL Hct (39.0-53.0) % MCHC (31.0-37.0) g/dL RDW (11.5-15.5) % Neutrophils # (1.3-7.7) k/uL Monocytes # (0-1.0) k/uL Sodium (137-145) mmol/L BUN (9-20) mg/dL Glucose (74-99) mg/dL POC Glucose (mg/dL) 199 H 260 H 158 H (75-99) mg/dL ALT (4-49) U/L Alkaline Phosphatase (38-126) U/L Total Protein (6.3-8.2) g/dL Albumin (3.5-5.0) g/dL 08/01/21 08/01/21 Range/Units 07:18 07:18 WBC 11.6 H (3.8-10.6) k/uL RBC 3.91 L (4.30-5.90) m/uL Hgb 10.5 L (13.0-17.5) gm/dL Hct 33.8 L (39.0-53.0) % MCHC (31.0-37.0) g/dL RDW 20.6 H (11.5-15.5) % Neutrophils # (1.3-7.7) k/uL Monocytes # 1.1 H (0-1.0) k/uL Sodium (137-145) mmol/L BUN 27 H (9-20) mg/dL Glucose 137 H (74-99) mg/dL POC Glucose (mg/dL) (75-99) mg/dL ALT 53 H (4-49) U/L Alkaline Phosphatase 324 H (38-126) U/L Total Protein 5.4 L (6.3-8.2) g/dL Albumin 3.2 L (3.5-5.0) g/dL Assessment and Plan Plan: Elevated troponin levels, possible non St elevation myocardial infarction, however patient had normal cardiac catheterization recently, he continues to come to the hospital with elevated troponin, 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 Cerda. 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 Oncology service is following At this time patient is admitted to telemetry floor Oncology and cardiology services following Bone marrow biopsy possibly to be schedule 08/01/2021 Right heart cath completed on 07/29/2021
[2021-08-01 10:37] LABS: Albumin 3.41 g/dL (3.80-4.90); Gamma Globulin 0.5 g/dL (0.70-1.50)
--- NOTE | 2021-08-01 10:43 | P.PN ---
Subjective Progress Note Date: 08/01/21 Principal diagnosis: Shortness of Breath Protein electrophoresis did not reveal any monoclonal proteins. Skeletal survey did not reveal any definitive lytic lesions. Objective - Vital Signs Vital signs: Vital Signs Temp 97.3 F L 07/31/21 21:00 Pulse 80 08/01/21 04:00 Resp 18 08/01/21 04:00 BP 100/66 08/01/21 04:00 Pulse Ox 96 08/01/21 04:00 Intake & Output 07/31/21 08/01/21 08/01/21 18:59 06:59 18:59 Intake Total 834 118 Balance 834 118 Weight 78.2 kg Intake: Oral 834 118 Other: Voiding Method Toilet Urinal - Exam Alert and Oriented Mild Distress when speaking Head: NCNT Neck: Supple Lungs: Increased effort Heart: Re, Ir Abdomen: Soft, Tender Ext: Dependent Edema pedal - Labs CBC & Chem 7: 08/01/21 07:18 08/01/21 07:18 Labs: Abnormal Lab Results - Last 24 Hours (Table) 07/31/21 07/31/21 07/31/21 Range/Units 10:30 10:30 11:43 WBC 12.3 H (3.8-10.6) k/uL RBC 3.96 L (4.30-5.90) m/uL Hgb 10.6 L (13.0-17.5) gm/dL Hct 34.3 L (39.0-53.0) % MCHC 30.9 L (31.0-37.0) g/dL RDW 20.4 H (11.5-15.5) % Neutrophils # 9.2 H (1.3-7.7) k/uL Monocytes # 1.1 H (0-1.0) k/uL Sodium 135 L (137-145) mmol/L BUN 28 H (9-20) mg/dL Glucose 183 H (74-99) mg/dL POC Glucose (mg/dL) 194 H (75-99) mg/dL ALT 61 H (4-49) U/L Alkaline Phosphatase 302 H (38-126) U/L Total Protein 5.6 L (6.3-8.2) g/dL Albumin 3.4 L (3.5-5.0) g/dL 07/31/21 07/31/21 08/01/21 Range/Units 16:23 20:01 06:07 WBC (3.8-10.6) k/uL RBC (4.30-5.90) m/uL Hgb (13.0-17.5) gm/dL Hct (39.0-53.0) % MCHC (31.0-37.0) g/dL RDW (11.5-15.5) % Neutrophils # (1.3-7.7) k/uL Monocytes # (0-1.0) k/uL Sodium (137-145) mmol/L BUN (9-20) mg/dL Glucose (74-99) mg/dL POC Glucose (mg/dL) 199 H 260 H 158 H (75-99) mg/dL ALT (4-49) U/L Alkaline Phosphatase (38-126) U/L Total Protein (6.3-8.2) g/dL Albumin (3.5-5.0) g/dL 08/01/21 08/01/21 Range/Units 07:18 07:18 WBC 11.6 H (3.8-10.6) k/uL RBC 3.91 L (4.30-5.90) m/uL Hgb 10.5 L (13.0-17.5) gm/dL Hct 33.8 L (39.0-53.0) % MCHC (31.0-37.0) g/dL RDW 20.6 H (11.5-15.5) % Neutrophils # (1.3-7.7) k/uL Monocytes # 1.1 H (0-1.0) k/uL Sodium (137-145) mmol/L BUN 27 H (9-20) mg/dL Glucose 137 H (74-99) mg/dL POC Glucose (mg/dL) (75-99) mg/dL ALT 53 H (4-49) U/L Alkaline Phosphatase 324 H (38-126) U/L Total Protein 5.4 L (6.3-8.2) g/dL Albumin 3.2 L (3.5-5.0) g/dL Assessment and Plan (1) Normocytic anemia Current Visit: Yes Status: Acute Code(s): D64.9 - ANEMIA, UNSPECIFIED SNOMED Code(s): 061081712 (2) Acute exacerbation of congestive heart failure Current Visit: No Status: Acute Code(s): I50.9 - HEART FAILURE, UNSPECIFIED SNOMED Code(s): 644938841 (3) Leukocytosis Current Visit: No Status: Acute Code(s): D72.829 - ELEVATED WHITE BLOOD CELL COUNT, UNSPECIFIED SNOMED Code(s): 280928166 (4) Type 2 diabetes mellitus with peripheral neuropathy Current Visit: No Status: Chronic Code(s): E11.42 - TYPE 2 DIABETES MELLITUS WITH DIABETIC POLYNEUROPATHY SNOMED Code(s): 50349770 Plan: Await completion of full hematological work-up and skeletal survey for recommend ations CT contrast contraindication with metformin, message to nursing to assist in primary team recommendation for this. Continue monitoring daily CBC. Suspicious picture for Multiple Myeloma, awaiting final electrophoresis and immunofixation. no apparent bone lesions noted No monoclonal proteins, no obvious lytic lesions identified. Increased [place] Lambda Ratio. Will discuss further with Dr. Rojo to determine if bone Marrow Biopsy is needed
[2021-08-01 11:29] LABS: Glucose,Whole Blood 219 mg/dL (75-99)
--- NOTE | 2021-08-01 14:16 | P.PN ---
Subjective Progress Note Date: 08/01/21 HISTORY OF PRESENT ILLNESS: This is a 71-year-old male with a past medical history significant for diabetes, hypertension, hyperlipidemia, and congestive heart failure. Patient follows in the office with Dr. Young. We have been asked to see the patient in consultation for abnormal troponins. Patient examined at the bedside. Patient was recently admitted to [facility] a few weeks ago for CHF. He states he was doing well post discharge until a couple days ago when he became short of breath. He reports having shortness of breath when walking around his house and climbing a flight of stairs to get the bathroom. He also reports mild chest pressure over the past two days with no other associated symptoms. The pain is not worse with deep inspiration or chest wall palpation. At the time of examination, the patient denies chest pain or pressure. EKG reveals sinus mechanism with right bundle branch block. No evidence of acute ischemia. Chest xray mild pleural reaction the lung bases. There is improvement in the pulmonary vascularity and clearing of most of the pleural fluid compared to last exam. Laboratory data: WBC 15.3. Hemoglobin 10.9. Platelet count 338. D-dimer 0.56. Sodium 133. Potassium 4.8. BUN 32. Creatinine 0.8. Lactic acid 2.2. Troponin 1.200. 1.370. 1.410. ProBNP 12,500 Current home cardiac medications include spironolactone 12.5 mg daily, metoprolol tartrate 25 mg twice a day, Lasix 40 mg twice a day, Lipitor 10 mg daily Most recent echocardiogram obtained in June 2021 revealed ejection fraction 50-55%, basal inferior LV wall hypokinesis, mild mitral regurgitation, mild tricuspid regurgitation. Previous echocardiogram completed in February 2021 revealed ejection fraction 60- 65%. Cardiac catheterization history: March 2021 revealing normal coronary arteries with minimal intimal plaque. Maximum medical therapy was recommended. Addendum entered and electronically signed by Glenroy Okeefe DO 07/25/21 17:12: Patient with symptoms consistent with angina and heart failure with previously mildly elevated troponins and normal coronaries cath 03/2021. 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 For microvascular dysfunction we will add Imdur. Patient also lightheaded at times and we will stop Aldactone, check orthostatics. Possibility of orthostatics intolerance from peripheral neuropathy with amyloid. We will check repeat limited echo with strain. 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 Continue diuretics. 07/26/2021 Patient examined this morning at the bedside. Patient continues to report shortness of breath with ambulation to the bathroom. He remains on IV diuretics. Repeat echocardiogram performed revealed ejection fraction 40-45%, severe LVH, cavity size decreased, basal inferior lateral hypokinesis, with possible amyloidosis. 07/27/2021 Patient examined at the bedside. Patient states he has mild chest pressure today. Patient continues to report shortness of breath with activity. He denies shortness of breath at rest. He remains on IV Lasix. Free kappa 37.51. Free lambda 1.00. Hematology is following. 07/28/2021 Patient examined at the bedside. Patient denies chest pain. He continues to re port shortness of breath with activity. He remains on IV Lasix. BUN 38. Creatinine 0.82. 07/30 Patient seen and examined. Patient underwent right heart catheterization yesterday which showed relatively normal left and right-sided filling pressures. Patient did however have significant decreased cardiac output and cardiac index. Therefore his metoprolol was stopped. He states he may have felt somewhat better able to walk the halls with less dyspnea over the last 24 hours. Still awaiting further workup from hematology for possible multiple myeloma. 07/31 Patient seen and examined. Patient states he had an episode of feeling somewhat lightheaded after he came out of the bathroom. He denies any significant lightheadedness however. He has been mistakenly receiving IV fluids at 50 mL per hour over the last 24 hours. Patient had bone scan which showed no significant multiple myeloma however appears to be new infiltrates. 08/01/2021 Patient examined at the bedside. Patient denies CP or SOB. Vital signs are stable. He remains on oral lasix. PHYSICAL EXAM: VITAL SIGNS: Reviewed. GENERAL: Well-developed in no acute distress. HEENT: Head is normocephalic. Pupils are equal, round. Sclerae anicteric. Mucous membranes of the mouth are moist. Neck supple. No JVD or thyromegaly LUNGS: Respirations even and unlabored. Lungs diminished to auscultation bilaterally. HEART: Regular rate and rhythm. S1 and S2 heard. EXTREMITIES: Normal range of motion. No clubbing or cyanosis. Peripheral pulses intact. 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 Signing provider agrees with the documented findings, assessment, and plan of care. Objective - Vital Signs Vital signs: Vital Signs Temp 98.3 F 08/01/21 08:00 Pulse 94 08/01/21 12:00 Resp 16 08/01/21 12:00 BP 123/84 08/01/21 12:00 Pulse Ox 97 08/01/21 12:00 Intake & Output 07/31/21 08/01/21 08/01/21 18:59 06:59 18:59 Intake Total 834 236 Balance 834 236 Weight 78.2 kg Intake: Oral 834 236 Other: Voiding Method Toilet Toilet Urinal Urinal - Labs CBC & Chem 7: 08/01/21 07:18 08/01/21 07:18 Labs: Abnormal Lab Results - Last 24 Hours (Table) 07/26/21 07/31/21 07/31/21 Range/Units 06:50 16:23 20:01 WBC (3.8-10.6) k/uL RBC (4.30-5.90) m/uL Hgb (13.0-17.5) gm/dL Hct (39.0-53.0) % RDW (11.5-15.5) % Monocytes # (0-1.0) k/uL BUN (9-20) mg/dL Glucose (74-99) mg/dL POC Glucose (mg/dL) 199 H 260 H (75-99) mg/dL ALT (4-49) U/L Alkaline Phosphatase (38-126) U/L Total Protein (6.3-8.2) g/dL Albumin (3.5-5.0) g/dL Albumin (PEP) 3.41 L (3.80-4.90) g/dL Beta Globulins 0.58 L (0.60-1.30) g/dL Gamma Globulins 0.50 L (0.70-1.50) g/dL 08/01/21 08/01/21 08/01/21 Range/Units 06:07 07:18 07:18 WBC 11.6 H (3.8-10.6) k/uL RBC 3.91 L (4.30-5.90) m/uL Hgb 10.5 L (13.0-17.5) gm/dL Hct 33.8 L (39.0-53.0) % RDW 20.6 H (11.5-15.5) % Monocytes # 1.1 H (0-1.0) k/uL BUN 27 H (9-20) mg/dL Glucose 137 H (74-99) mg/dL POC Glucose (mg/dL) 158 H (75-99) mg/dL ALT 53 H (4-49) U/L Alkaline Phosphatase 324 H (38-126) U/L Total Protein 5.4 L (6.3-8.2) g/dL Albumin 3.2 L (3.5-5.0) g/dL Albumin (PEP) (3.80-4.90) g/dL Beta Globulins (0.60-1.30) g/dL Gamma Globulins (0.70-1.50) g/dL 08/01/21 Range/Units 11:27 WBC (3.8-10.6) k/uL RBC (4.30-5.90) m/uL Hgb (13.0-17.5) gm/dL Hct (39.0-53.0) % RDW (11.5-15.5) % Monocytes # (0-1.0) k/uL BUN (9-20) mg/dL Glucose (74-99) mg/dL POC Glucose (mg/dL) 219 H (75-99) mg/dL ALT (4-49) U/L Alkaline Phosphatase (38-126) U/L Total Protein (6.3-8.2) g/dL Albumin (3.5-5.0) g/dL Albumin (PEP) (3.80-4.90) g/dL Beta Globulins (0.60-1.30) g/dL Gamma Globulins (0.70-1.50) g/dL
--- NOTE | 2021-08-01 15:48 | NM ---
EXAMINATION TYPE: NM bone scan whole body DATE OF EXAM: 08/01/2021 COMPARISON: Bone survey 07/31/2021, CT 07/28/2021 HISTORY: Multiple myeloma, bone lesions Delayed whole-body scanning was performed following the injection of 23.2 mCi Tc 99m MDP. Images acq uired 6 hours post injection. FINDINGS: Mild uptake along the anterior ribs on the left could be posttraumatic, ribs 4 through 7 and possibly 9 or 10. Uptake within the hands, feet, hips, sternoclavicular joints and shoulders is likely degene rative. Soft tissue uptake is normal. Patient is likely post left knee arthroplasty, focal photopenic areas present. Uptake in the cervical spine is likely degenerative, likely due to facet arthropathy. Uptake in the maxilla and mandible likely due to periodontal disease. IMPRESSION: Correlate for trauma along the anterior ribs on the left.
[2021-08-01 16:08] LABS: Glucose,Whole Blood 189 mg/dL (75-99)
[2021-08-01 19:59] LABS: Glucose,Whole Blood 211 mg/dL (75-99)
[2021-08-01] MEDS: TAMSULOSIN 0.4 MG CAP.ER.24H PO SCH (20:27)
[2021-08-01] MEDS: LORATADINE 10 MG TAB PO SCH (20:27)
[2021-08-01] MEDS: TEMAZEPAM 15 MG CAP PO SCH (20:28)
[2021-08-02] MEDS: HYDROmorphone 0.5 MG/0.5 ML SYRINGE IVP PRN ×6 (01:29→21:26)
[2021-08-02 06:09] LABS: Glucose,Whole Blood 118 mg/dL (75-99)
[2021-08-02] MEDS: INSULIN ASPART (NovoLOG) 100 UNIT/ML VIAL SQ SCH ×4 (06:24→20:21)
[2021-08-02 08:02] LABS: Anisocytosis Moderate; Basophils # (A) 0.1 k/uL (0-0.2); Basophils % (A) 1 %; Eosinophils # (A) 0.2 k/uL (0-0.7); Eosinophils % (A) 2 %; HCT 35.1 % (39.0-53.0); HGB 10.6 gm/dL (13.0-17.5); Hypochromasia Marked; Lymphocytes # (A) 2.9 k/uL (1.0-4.8); Lymphocytes % (A) 26 %; MCH 26.7 pg (25.0-35.0); MCHC 30.2 g/dL (31.0-37.0); MCV 88.5 fL (80.0-100.0); Mean Platelet Volume 9.2; Microcytosis Slight; Monocytes % (A) 9 %; Neutrophils # (A) 6.9 k/uL (1.3-7.7); Neutrophils % (A) 60 %; Platelet Count 256 k/uL (150-450); Poikilocytosis Slight; RBC 3.96 m/uL (4.30-5.90); RDW 20.5 % (11.5-15.5); WBC 11.4 k/uL (3.8-10.6)
[2021-08-02 08:31] LABS: ALT 47 U/L (4-49); AST 29 U/L (17-59); African American GFR (CKD) >90 (>60 ml/min/1.73 sqM); Albumin 3.2 g/dL (3.5-5.0); Alkaline Phosphatase 297 U/L (38-126); Anion Gap 8 mmol/L; Blood Urea Nitrogen 27 mg/dL (9-20); Calcium 8.8 mg/dL (8.4-10.2); Carbon Dioxide 28 mmol/L (22-30); Chloride 102 mmol/L (98-107); Glucose 106 mg/dL (74-99); Non-African American GFR(CKD) 87 (>60 ml/min/1.73 sqM); Potassium 3.8 mmol/L (3.5-5.1); Sodium 138 mmol/L (137-145); Total Bilirubin 1.1 mg/dL (0.2-1.3); Total Protein 5.5 g/dL (6.3-8.2)
[2021-08-02] MEDS: CITALOPRAM HYDROBROMIDE 20 MG TAB PO SCH (08:46)
[2021-08-02] MEDS: methIMAzole 5 MG TAB PO SCH (08:46)
[2021-08-02] MEDS: ISOSORBIDE MONONITRATE ER 60 MG TAB.ER.24H PO SCH (08:47)
[2021-08-02] MEDS: PANTOPRAZOLE 40 MG TABLET PO SCH ×2 (08:47→20:21)
[2021-08-02] MEDS: ASPIRIN 81 MG PO SCH (08:47)
[2021-08-02] MEDS: polyethylene glycoL 3350 17 GM POWD.PACK PO SCH (08:47)
[2021-08-02] MEDS: predniSONE 10 MG TAB PO SCH (08:47)
[2021-08-02] MEDS: DOCUSATE 100 MG CAP PO SCH ×2 (08:47→20:21)
[2021-08-02] MEDS: ATORVASTATIN 10 MG TAB PO SCH (08:47)
[2021-08-02] MEDS: FUROSEMIDE 40 MG TAB PO SCH ×2 (08:47→17:32)
[2021-08-02] MEDS: FLUTICASONE 50MCG/SPRAY NASAL 16GM EA NOSTRIL SCH ×2 (08:48→20:21)
--- NOTE | 2021-08-02 11:30 | P.PN ---
Subjective Progress Note Date: 08/02/21 Principal diagnosis: Shortness of Breath Full hematological work-upmis resulted. No monoclonal proteins or lytic lesions identified but the picture is consistent with that of a light chain only myeloma. Another identifying piece is the lack of evidence for his anemia. We will set him up for bone marrow biopsy, this week. Will discuss in detail with patient and . I am meeting with them at 12:30 today Objective - Vital Signs Vital signs: Vital Signs Temp 97.9 F 08/02/21 08:00 Pulse 80 08/02/21 08:00 Resp 16 08/02/21 08:00 BP 103/63 08/02/21 08:00 Pulse Ox 96 08/02/21 08:00 Intake & Output 08/01/21 08/02/21 08/02/21 18:59 06:59 18:59 Intake Total 354 Balance 354 Weight 77.2 kg Intake: Oral 354 Other: Voiding Method Toilet Toilet Urinal Urinal - Exam Alert and Oriented Mild Distress when speaking Head: NCNT Neck: Supple Lungs: Increased effort Heart: Re, Ir Abdomen: Soft, Tender Ext: Dependent Edema pedal - Labs CBC & Chem 7: 08/02/21 07:09 08/02/21 07:09 Labs: Abnormal Lab Results - Last 24 Hours (Table) 08/01/21 08/01/21 08/01/21 Range/Units 11:27 16:07 19:57 WBC (3.8-10.6) k/uL RBC (4.30-5.90) m/uL Hgb (13.0-17.5) gm/dL Hct (39.0-53.0) % MCHC (31.0-37.0) g/dL RDW (11.5-15.5) % BUN (9-20) mg/dL Glucose (74-99) mg/dL POC Glucose (mg/dL) 219 H 189 H 211 H (75-99) mg/dL Alkaline Phosphatase (38-126) U/L Total Protein (6.3-8.2) g/dL Albumin (3.5-5.0) g/dL 08/02/21 08/02/21 08/02/21 Range/Units 06:07 07:09 07:09 WBC 11.4 H (3.8-10.6) k/uL RBC 3.96 L (4.30-5.90) m/uL Hgb 10.6 L (13.0-17.5) gm/dL Hct 35.1 L (39.0-53.0) % MCHC 30.2 L (31.0-37.0) g/dL RDW 20.5 H (11.5-15.5) % BUN 27 H (9-20) mg/dL Glucose 106 H (74-99) mg/dL POC Glucose (mg/dL) 118 H (75-99) mg/dL Alkaline Phosphatase 297 H (38-126) U/L Total Protein 5.5 L (6.3-8.2) g/dL Albumin 3.2 L (3.5-5.0) g/dL Assessment and Plan (1) Normocytic anemia Current Visit: Yes Status: Acute Code(s): D64.9 - ANEMIA, UNSPECIFIED SNOMED Code(s): 971790094 (2) Acute exacerbation of congestive heart failure Current Visit: No Status: Acute Code(s): I50.9 - HEART FAILURE, UNSPECIFIED SNOMED Code(s): 321953049 (3) Leukocytosis Current Visit: No Status: Acute Code(s): D72.829 - ELEVATED WHITE BLOOD CELL COUNT, UNSPECIFIED SNOMED Code(s): 824270448 (4) Type 2 diabetes mellitus with peripheral neuropathy Current Visit: No Status: Chronic Code(s): E11.42 - TYPE 2 DIABETES MELLITUS WITH DIABETIC POLYNEUROPATHY SNOMED Code(s): 54965223 Plan: Await completion of full hematological work-up and skeletal survey for recommendations CT contrast contraindication with metformin, message to nursing to assist in primary team recommendation for this. Continue monitoring daily CBC. Suspicious picture for Multiple Myeloma, awaiting final electrophoresis and immunofixation. no apparent bone lesions noted No monoclonal proteins, no obvious lytic lesions identified. Increased [place] Lambda Ratio. Case reviewed in full with Dr. 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 Awaiting our office to schedule while inpatient, discussed woth patient and .
[2021-08-02 12:00] LABS: Glucose,Whole Blood 165 mg/dL (75-99)
--- NOTE | 2021-08-02 12:31 | P.PN ---
Subjective Progress Note Date: 08/02/21 HISTORY OF PRESENT ILLNESS: This is a 71-year-old male with a past medical history significant for diabetes, hypertension, hyperlipidemia, and congestive heart failure. Patient follows in the office with Dr. Young. We have been asked to see the patient in consultation for abnormal troponins. Patient examined at the bedside. Patient was recently admitted to [facility] a few weeks ago for CHF. He states he was doing well post discharge until a couple days ago when he became short of breath. He reports having shortness of breath when walking around his house and climbing a flight of stairs to get the bathroom. He also reports mild chest pressure over the past two days with no other associated symptoms. The pain is not worse with deep inspiration or chest wall palpation. At the time of examination, the patient denies chest pain or pressure. EKG reveals sinus mechanism with right bundle branch block. No evidence of acute ischemia. Chest xray mild pleural reaction the lung bases. There is improvement in the pulmonary vascularity and clearing of most of the pleural fluid compared to last exam. Laboratory data: WBC 15.3. Hemoglobin 10.9. Platelet count 338. D-dimer 0.56. Sodium 133. Potassium 4.8. BUN 32. Creatinine 0.8. Lactic acid 2.2. Troponin 1.200. 1.370. 1.410. ProBNP 12,500 Current home cardiac medications include spironolactone 12.5 mg daily, metoprolol tartrate 25 mg twice a day, Lasix 40 mg twice a day, Lipitor 10 mg daily Most recent echocardiogram obtained in June 2021 revealed ejection fraction 50-55%, basal inferior LV wall hypokinesis, mild mitral regurgitation, mild tricuspid regurgitation. Previous echocardiogram completed in February 2021 revealed ejection fraction 60- 65%. Cardiac catheterization history: March 2021 revealing normal coronary arteries with minimal intimal plaque. Maximum medical therapy was recommended. Addendum entered and electronically signed by Glenroy Okeefe DO 07/25/21 17:12: Patient with symptoms consistent with angina and heart failure with previously mildly elevated troponins and normal coronaries cath 03/2021. 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 For microvascular dysfunction we will add Imdur. Patient also lightheaded at times and we will stop Aldactone, check orthostatics. Possibility of orthostatics intolerance from peripheral neuropathy with amyloid. We will check repeat limited echo with strain. 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 Continue diuretics. 07/26/2021 Patient examined this morning at the bedside. Patient continues to report shortness of breath with ambulation to the bathroom. He remains on IV diuretics. Repeat echocardiogram performed revealed ejection fraction 40-45%, severe LVH, cavity size decreased, basal inferior lateral hypokinesis, with possible amyloidosis. 07/27/2021 Patient examined at the bedside. Patient states he has mild chest pressure today. Patient continues to report shortness of breath with activity. He denies shortness of breath at rest. He remains on IV Lasix. Free kappa 37.51. Free lambda 1.00. Hematology is following. 07/28/2021 Patient examined at the bedside. Patient denies chest pain. He continues to re port shortness of breath with activity. He remains on IV Lasix. BUN 38. Creatinine 0.82. 07/30 Patient seen and examined. Patient underwent right heart catheterization yesterday which showed relatively normal left and right-sided filling pressures. Patient did however have significant decreased cardiac output and cardiac index. Therefore his metoprolol was stopped. He states he may have felt somewhat better able to walk the halls with less dyspnea over the last 24 hours. Still awaiting further workup from hematology for possible multiple myeloma. 07/31 Patient seen and examined. Patient states he had an episode of feeling somewhat lightheaded after he came out of the bathroom. He denies any significant lightheadedness however. He has been mistakenly receiving IV fluids at 50 mL per hour over the last 24 hours. Patient had bone scan which showed no significant multiple myeloma however appears to be new infiltrates. 08/01/2021 Patient examined at the bedside. Patient denies CP or SOB. Vital signs are stable. He remains on oral lasix. 08/02/2021 Patient examined at the bedside. Patient denies CP or SOB. Vital signs are stable. He remains on oral lasix. Patient states he is going to be scheduled for a bone marrow biopsy sometime this week. PHYSICAL EXAM: VITAL SIGNS: Reviewed. GENERAL: Well-developed in no acute distress. HEENT: Head is normocephalic. Pupils are equal, round. Sclerae anicteric. Mucous membranes of the mouth are moist. Neck supple. No JVD or thyromegaly LUNGS: Respirations even and unlabored. Lungs diminished to auscultation bilaterally. HEART: Regular rate and rhythm. S1 and S2 heard. EXTREMITIES: Normal range of motion. No clubbing or cyanosis. Peripheral pulses intact. 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 Patient scheduled for a bone marrow biopsy later this week No further inpatient recommendations from a cardiac standpoint We will sign off. Please call with questions or concerns. Nurse practitioner note has been reviewed by physician. Signing provider agrees with the documented findings, assessment, and plan of care. Objective - Vital Signs Vital signs: Vital Signs Temp 97.9 F 08/02/21 08:00 Pulse 80 08/02/21 08:00 Resp 16 08/02/21 08:00 BP 103/63 08/02/21 08:00 Pulse Ox 96 08/02/21 08:00 Intake & Output 08/01/21 08/02/21 08/02/21 18:59 06:59 18:59 Intake Total 354 Balance 354 Weight 77.2 kg Intake: Oral 354 Other: Voiding Method Toilet Toilet Urinal Urinal - Labs CBC & Chem 7: 08/02/21 07:09 08/02/21 07:09 Labs: Abnormal Lab Results - Last 24 Hours (Table) 08/01/21 08/01/21 08/02/21 Range/Units 16:07 19:57 06:07 WBC (3.8-10.6) k/uL RBC (4.30-5.90) m/uL Hgb (13.0-17.5) gm/dL Hct (39.0-53.0) % MCHC (31.0-37.0) g/dL RDW (11.5-15.5) % BUN (9-20) mg/dL Glucose (74-99) mg/dL POC Glucose (mg/dL) 189 H 211 H 118 H (75-99) mg/dL Alkaline Phosphatase (38-126) U/L Total Protein (6.3-8.2) g/dL Albumin (3.5-5.0) g/dL 08/02/21 08/02/21 08/02/21 Range/Units 07:09 07:09 11:58 WBC 11.4 H (3.8-10.6) k/uL RBC 3.96 L (4.30-5.90) m/uL Hgb 10.6 L (13.0-17.5) gm/dL Hct 35.1 L (39.0-53.0) % MCHC 30.2 L (31.0-37.0) g/dL RDW 20.5 H (11.5-15.5) % BUN 27 H (9-20) mg/dL Glucose 106 H (74-99) mg/dL POC Glucose (mg/dL) 165 H (75-99) mg/dL Alkaline Phosphatase 297 H (38-126) U/L Total Protein 5.5 L (6.3-8.2) g/dL Albumin 3.2 L (3.5-5.0) g/dL
[2021-08-02 16:28] LABS: Glucose,Whole Blood 221 mg/dL (75-99)
--- NOTE | 2021-08-02 17:05 | P.PN ---
Subjective Progress Note Date: 08/02/21 Gaetano Lorenz, is a year old male who presented to [facility] emergency room with a chief complaint of dizziness near syncope and shortness of breath. He was evaluated in the emergency room vital examination on presentation revealed a temperature of 97.9 pulse 57 respiration 18 blood pressure 91/68 pulse ox 99% on room air. Laboratory data revealed a white blood count of 15.1 hemoglobin 11.7 platelet count 376 sodium 133 BUN 32 creatinine 0.88 glucose 165 lactic acid 2.2 troponin level 1.2 coronary 5PCR was negative Testing in the emergency room revealed EKG revealed sinus bradycardia with first-degree AV block and right bundle branch block, chest x-ray revealed mild pleural reaction at the lung bases. Patient was admitted to medical floor for further evaluation and treatment Past medical history is significant for chronic diastolic congestive heart failure, underlying history of COPD with chronic hypoxic respiratory failure requiring home oxygen use, underlying history of hypertension, underlying history of degenerative disc disease with chronic back pain On review of systems Patient was seen and examined on the medical floor, he is alert and oriented x 3 in no distress, he denies any complaints there is no fever or chills no headache or dizziness no chest pain no shortness of breath no palpitation no cough no nausea or vomiting no abdominal pain no diarrhea no bl ood in the stools no burning with urination no frequency or urgency and no hematuria, there is no weakness or numbness in any of the extremities no change in vision speech or gait. On 07/26/2021 patient was seen and examined on the telemetry floor he is alert and oriented 3 in no apparent distress he is still complaining of shortness of breath with any activity, he can only walk a few steps before having trouble breathing, he is complaining of back pain, otherwise he denies any complaints th ere is no fever or chills no headache or dizziness no chest pain, no cough no nausea or vomiting no abdominal pain no diarrhea no blood in the stools no burning with urination no frequency or urgency and no hematuria On 07/27/2021 patient is alert and oriented 3. Patient is currently being followed by oncology services and cardiology services. At this time patient remained short of breath with activity. Patient denies chest pain. Patient denies nausea vomiting or diarrhea. Patient denies any urinary burning or frequency On 07/28/2021 patient's alert and oriented 3. Patient remained short of breath with activity. Cardiology oncology services are following further workup pending per oncology and cardiology services. Patient reports occasional shortness breath and chest pain. Patient denies nausea vomiting or diarrhea. Patient denies any urinary burning or frequency On 07/29/2021 patient's alert and oriented 3. RHC test and bone scan to be completed today. Patient remains with episodes of shortness of breath. On 07/30/2021 patient was seen and examined on the medical floor he is alert and oriented 3 in no apparent distress he is complaining of back pain and complai aubrie of shortness of breath with activity, otherwise he denies any complaints there is no fever or chills no headache or dizziness no chest pain, no nausea or vomiting no abdominal pain no diarrhea no blood in the stools no burning with urination no frequency or urgency and no hematuria, patient underwent cardiac catheterization yesterday he is followed closely by cardiology and hematology plan is for possible bone marrow biopsy on Sunday07/31/2021 patient's alert and oriented 3. Patient status post right heart cath plans for possible bone marrow biopsy tomorrow per hematology services. Patient still complaining of occasional shortness breath with activity. Patient denies chest pain. Patient denies nausea vomiting or diarrhea. Patient denies any urinary burning or frequency On 08/01/2021 patient's alert and oriented 3. Plans for bone marrow biopsy today per hematology services. Patient still complaining of intermittent episodes of shortness of breath. Patient denies chest pain. Patient denies nausea vomiting or diarrhea. Patient denies any urinary burning or frequency. On 08/02/2021atient was seen and examined on the medical floor, he is alert and oriented x 3 in no distress, he denies any complaints there is no fever or chills no headache or dizziness no chest pain no shortness of breath no palpitation no cough no nausea or vomiting no abdominal pain no diarrhea no blood in the stools no burning with urination no frequency or urgency and no hematuria, there is no weakness or numbness in any of the extremities no change in vision speech or gait. Patient is complaining of feeling dizzy when he stands up will check orthostatic blood pressure. At this time we are awaiting bone marrow biopsy. Objective - Vital Signs Vital signs: Vital Signs Temp 97.9 F 08/02/21 08:00 Pulse 80 08/02/21 08:00 Resp 16 08/02/21 08:00 BP 103/63 08/02/21 08:00 Pulse Ox 96 08/02/21 08:00 Intake & Output 08/01/21 08/02/21 08/02/21 18:59 06:59 18:59 Intake Total 354 Balance 354 Weight 77.2 kg Intake: Oral 354 Other: Voiding Method Toilet Urinal - Exam In general patient is alert and oriented x 3 in no distress HEENT head normocephalic and atraumatic Neck is supple no JVD no goiter no lymphadenopathy no carotid bruit Chest examination is clear to auscultation no crackles no wheezing Cardiac exam reveals regular heart sounds S1 and S2 no gallops no murmurs Abdomen is soft nontender no organomegaly with normal bowel sounds Extremity exam reveals no edema no cyanosis or clubbing Neurological examination reveals no gross focal deficits - Labs CBC & Chem 7: 08/02/21 07:09 08/02/21 07:09 Labs: Abnormal Lab Results - Last 24 Hours (Table) 07/26/21 08/01/21 08/01/21 Range/Units 06:50 11:27 16:07 WBC (3.8-10.6) k/uL RBC (4.30-5.90) m/uL Hgb (13.0-17.5) gm/dL Hct (39.0-53.0) % MCHC (31.0-37.0) g/dL RDW (11.5-15.5) % BUN (9-20) mg/dL Glucose (74-99) mg/dL POC Glucose (mg/dL) 219 H 189 H (75-99) mg/dL Alkaline Phosphatase (38-126) U/L Total Protein (6.3-8.2) g/dL Albumin (3.5-5.0) g/dL Albumin (PEP) 3.41 L (3.80-4.90) g/dL Beta Globulins 0.58 L (0.60-1.30) g/dL Gamma Globulins 0.50 L (0.70-1.50) g/dL 08/01/21 08/02/21 08/02/21 Range/Units 19:57 06:07 07:09 WBC 11.4 H (3.8-10.6) k/uL RBC 3.96 L (4.30-5.90) m/uL Hgb 10.6 L (13.0-17.5) gm/dL Hct 35.1 L (39.0-53.0) % MCHC 30.2 L (31.0-37.0) g/dL RDW 20.5 H (11.5-15.5) % BUN (9-20) mg/dL Glucose (74-99) mg/dL POC Glucose (mg/dL) 211 H 118 H (75-99) mg/dL Alkaline Phosphatase (38-126) U/L Total Protein (6.3-8.2) g/dL Albumin (3.5-5.0) g/dL Albumin (PEP) (3.80-4.90) g/dL Beta Globulins (0.60-1.30) g/dL Gamma Globulins (0.70-1.50) g/dL 08/02/21 Range/Units 07:09 WBC (3.8-10.6) k/uL RBC (4.30-5.90) m/uL Hgb (13.0-17.5) gm/dL Hct (39.0-53.0) % MCHC (31.0-37.0) g/dL RDW (11.5-15.5) % BUN 27 H (9-20) mg/dL Glucose 106 H (74-99) mg/dL POC Glucose (mg/dL) (75-99) mg/dL Alkaline Phosphatase 297 H (38-126) U/L Total Protein 5.5 L (6.3-8.2) g/dL Albumin 3.2 L (3.5-5.0) g/dL Albumin (PEP) (3.80-4.90) g/dL Beta Globulins (0.60-1.30) g/dL Gamma Globulins (0.70-1.50) g/dL Assessment and Plan Plan: Elevated troponin levels, possible non St elevation myocardial infarction, however patient had normal cardiac catheterization recently, he continues to come to the hospital with elevated troponin, 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 Cerda. 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 Oncology service is following At this time patient is admitted to telemetry floor Oncology and cardiology services following Bone marrow biopsy possibly to be schedule 08/01/2021 Right heart cath completed on 07/29/2021
[2021-08-02 20:05] LABS: Glucose,Whole Blood 159 mg/dL (75-99)
[2021-08-02] MEDS: LORATADINE 10 MG TAB PO SCH (20:20)
[2021-08-02] MEDS: TAMSULOSIN 0.4 MG CAP.ER.24H PO SCH (20:20)
[2021-08-02] MEDS: TEMAZEPAM 15 MG CAP PO SCH (20:21)
[2021-08-02] MEDS: IBUPROFEN 800 MG TAB PO PRN (23:44)
[2021-08-03] MEDS: HYDROmorphone 0.5 MG/0.5 ML SYRINGE IVP PRN ×6 (01:24→21:56)
[2021-08-03 06:09] LABS: Glucose,Whole Blood 122 mg/dL (75-99)
[2021-08-03] MEDS: INSULIN ASPART (NovoLOG) 100 UNIT/ML VIAL SQ SCH ×4 (06:28→21:04)
[2021-08-03 09:31] LABS: Anisocytosis Moderate; Basophils # (A) 0.1 k/uL (0-0.2); Basophils % (A) 1 %; Eosinophils # (A) 0.2 k/uL (0-0.7); Eosinophils % (A) 2 %; HCT 35.6 % (39.0-53.0); HGB 10.9 gm/dL (13.0-17.5); Hypochromasia Marked; Lymphocytes # (A) 2.8 k/uL (1.0-4.8); Lymphocytes % (A) 28 %; MCH 26.6 pg (25.0-35.0); MCHC 30.7 g/dL (31.0-37.0); MCV 86.5 fL (80.0-100.0); Mean Platelet Volume 9.2; Microcytosis Slight; Monocytes # (A) 0.9 k/uL (0-1.0); Monocytes % (A) 9 %; Neutrophils # (A) 5.6 k/uL (1.3-7.7); Neutrophils % (A) 57 %; Platelet Count 255 k/uL (150-450); Poikilocytosis Moderate; RBC 4.11 m/uL (4.30-5.90); RDW 20.5 % (11.5-15.5); WBC 9.9 k/uL (3.8-10.6)
[2021-08-03] MEDS: PANTOPRAZOLE 40 MG TABLET PO SCH ×2 (09:41→21:04)
[2021-08-03] MEDS: CITALOPRAM HYDROBROMIDE 20 MG TAB PO SCH (09:41)
[2021-08-03] MEDS: DOCUSATE 100 MG CAP PO SCH ×2 (09:41→21:04)
[2021-08-03] MEDS: ASPIRIN 81 MG PO SCH (09:41)
[2021-08-03] MEDS: ATORVASTATIN 10 MG TAB PO SCH (09:41)
[2021-08-03] MEDS: predniSONE 10 MG TAB PO SCH (09:42)
[2021-08-03] MEDS: ISOSORBIDE MONONITRATE ER 60 MG TAB.ER.24H PO SCH (09:42)
[2021-08-03] MEDS: FUROSEMIDE 40 MG TAB PO SCH ×2 (09:42→17:00)
[2021-08-03] MEDS: polyethylene glycoL 3350 17 GM POWD.PACK PO SCH (09:44)
[2021-08-03 09:58] LABS: Albumin 3.3 g/dL (3.5-5.0); Calcium 9.3 mg/dL (8.4-10.2); Total Bilirubin 1.2 mg/dL (0.2-1.3); Total Protein 5.7 g/dL (6.3-8.2)
[2021-08-03 11:36] LABS: Glucose,Whole Blood 117 mg/dL (75-99)
--- NOTE | 2021-08-03 12:10 | P.PN ---
Subjective Progress Note Date: 08/03/21 Gaetano Lorenz, is a year old male who presented to [facility] emergency room with a chief complaint of dizziness near syncope and shortness of breath. He was evaluated in the emergency room vital examination on presentation revealed a temperature of 97.9 pulse 57 respiration 18 blood pressure 91/68 pulse ox 99% on room air. Laboratory data revealed a white blood count of 15.1 hemoglobin 11.7 platelet count 376 sodium 133 BUN 32 creatinine 0.88 glucose 165 lactic acid 2.2 troponin level 1.2 coronary 5PCR was negative Testing in the emergency room revealed EKG revealed sinus bradycardia with first-degree AV block and right bundle branch block, chest x-ray revealed mild pleural reaction at the lung bases. Patient was admitted to medical floor for further evaluation and treatment Past medical history is significant for chronic diastolic congestive heart failure, underlying history of COPD with chronic hypoxic respiratory failure requiring home oxygen use, underlying history of hypertension, underlying history of degenerative disc disease with chronic back pain On review of systems Patient was seen and examined on the medical floor, he is alert and oriented x 3 in no distress, he denies any complaints there is no fever or chills no headache or dizziness no chest pain no shortness of breath no palpitation no cough no nausea or vomiting no abdominal pain no diarrhea no bl ood in the stools no burning with urination no frequency or urgency and no hematuria, there is no weakness or numbness in any of the extremities no change in vision speech or gait. On 07/26/2021 patient was seen and examined on the telemetry floor he is alert and oriented 3 in no apparent distress he is still complaining of shortness of breath with any activity, he can only walk a few steps before having trouble breathing, he is complaining of back pain, otherwise he denies any complaints th ere is no fever or chills no headache or dizziness no chest pain, no cough no nausea or vomiting no abdominal pain no diarrhea no blood in the stools no burning with urination no frequency or urgency and no hematuria On 07/27/2021 patient is alert and oriented 3. Patient is currently being followed by oncology services and cardiology services. At this time patient remained short of breath with activity. Patient denies chest pain. Patient denies nausea vomiting or diarrhea. Patient denies any urinary burning or frequency On 07/28/2021 patient's alert and oriented 3. Patient remained short of breath with activity. Cardiology oncology services are following further workup pending per oncology and cardiology services. Patient reports occasional shortness breath and chest pain. Patient denies nausea vomiting or diarrhea. Patient denies any urinary burning or frequency On 07/29/2021 patient's alert and oriented 3. RHC test and bone scan to be completed today. Patient remains with episodes of shortness of breath. On 07/30/2021 patient was seen and examined on the medical floor he is alert and oriented 3 in no apparent distress he is complaining of back pain and complai aubrie of shortness of breath with activity, otherwise he denies any complaints there is no fever or chills no headache or dizziness no chest pain, no nausea or vomiting no abdominal pain no diarrhea no blood in the stools no burning with urination no frequency or urgency and no hematuria, patient underwent cardiac catheterization yesterday he is followed closely by cardiology and hematology plan is for possible bone marrow biopsy on Sunday07/31/2021 patient's alert and oriented 3. Patient status post right heart cath plans for possible bone marrow biopsy tomorrow per hematology services. Patient still complaining of occasional shortness breath with activity. Patient denies chest pain. Patient denies nausea vomiting or diarrhea. Patient denies any urinary burning or frequency On 08/01/2021 patient's alert and oriented 3. Plans for bone marrow biopsy today per hematology services. Patient still complaining of intermittent episodes of shortness of breath. Patient denies chest pain. Patient denies nausea vomiting or diarrhea. Patient denies any urinary burning or frequency. On 08/02/2021atient was seen and examined on the medical floor, he is alert and oriented x 3 in no distress, he denies any complaints there is no fever or chills no headache or dizziness no chest pain no shortness of breath no palpitation no cough no nausea or vomiting no abdominal pain no diarrhea no blood in the stools no burning with urination no frequency or urgency and no hematuria, there is no weakness or numbness in any of the extremities no change in vision speech or gait. Patient is complaining of feeling dizzy when he stands up will check orthostatic blood pressure. At this time we are awaiting bone marrow biopsy. On 08/03/2021. Orders for bone marrow biopsy tomorrow. Per patient him and his have a meeting with oncology services today at noon. Patient is currently resting comfortably in bed. Vital signs remained stable. Patient denies chest pain. Patient denies nausea vomiting or diarrhea. Patient denies any urinary burning or frequency Objective - Vital Signs Vital signs: Vital Signs Temp 97.7 F 08/03/21 08:00 Pulse 84 08/03/21 08:00 Resp 16 08/03/21 08:00 BP 103/71 08/03/21 08:00 Pulse Ox 95 08/03/21 08:00 Intake & Output 08/02/21 08/03/21 08/03/21 18:59 06:59 18:59 Intake Total 240 10 10 Balance 240 10 10 Weight 65 kg Intake: IV 10 10 Invasive Line 3 10 10 Oral 240 0 Other: Voiding Method Toilet Toilet Toilet Urinal Urinal Urinal - Exam In general patient is alert and oriented x 3 in no distress HEENT head normocephalic and atraumatic Neck is supple no JVD no goiter no lymphadenopathy no carotid bruit Chest examination is clear to auscultation no crackles no wheezing Cardiac exam reveals regular heart sounds S1 and S2 no gallops no murmurs Abdomen is soft nontender no organomegaly with normal bowel sounds Extremity exam reveals no edema no cyanosis or clubbing Neurological examination reveals no gross focal deficits - Labs CBC & Chem 7: 08/03/21 09:08 08/03/21 09:08 Labs: Abnormal Lab Results - Last 24 Hours (Table) 08/02/21 08/02/21 08/03/21 Range/Units 16:27 20:04 06:07 RBC (4.30-5.90) m/uL Hgb (13.0-17.5) gm/dL Hct (39.0-53.0) % MCHC (31.0-37.0) g/dL RDW (11.5-15.5) % BUN (9-20) mg/dL Glucose (74-99) mg/dL POC Glucose (mg/dL) 221 H 159 H 122 H (75-99) mg/dL Alkaline Phosphatase (38-126) U/L Total Protein (6.3-8.2) g/dL Albumin (3.5-5.0) g/dL 11/10/21 11/10/21 11/10/21 Range/Units 09:08 09:08 11:34 RBC 4.11 L (4.30-5.90) m/uL Hgb 10.9 L (13.0-17.5) gm/dL Hct 35.6 L (39.0-53.0) % MCHC 30.7 L (31.0-37.0) g/dL RDW 20.5 H (11.5-15.5) % BUN 32 H (9-20) mg/dL Glucose 113 H (74-99) mg/dL POC Glucose (mg/dL) 117 H (75-99) mg/dL Alkaline Phosphatase 247 H (38-126) U/L Total Protein 5.7 L (6.3-8.2) g/dL Albumin 3.3 L (3.5-5.0) g/dL Assessment and Plan Plan: Elevated troponin levels, possible non St elevation myocardial infarction, however patient had normal cardiac catheterization recently, he continues to come to the hospital with elevated troponin, 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 Cerda. 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 Oncology service is following At this time patient is admitted to telemetry floor Oncology and cardiology services following Bone marrow biopsy possibly to be schedule 08/04/2021 Right heart cath completed on 07/29/2021
[2021-08-03 12:36] LABS: INR 1.4 (<1.2); Prothrombin Time 14.5 sec (9.0-12.0)
[2021-08-03 12:57] LABS: Reticulocyte % 2.2 % (0.5-2.0)
[2021-08-03] MEDS: FLUTICASONE 50MCG/SPRAY NASAL 16GM EA NOSTRIL SCH ×2 (16:05→21:05)
[2021-08-03 16:22] LABS: Glucose,Whole Blood 235 mg/dL (75-99)
--- NOTE | 2021-08-03 19:32 | P.PN ---
Subjective Progress Note Date: 08/03/21 Principal diagnosis: Shortness of Breath Long discussion with patient and patients regarding light chain only myeloma, next steps as bone marrow biopsy. We discussed how this is done and have asked IR to assist due to limited resources, times and practitioners at this time. IR is planning to perform in am tomorrow Objective - Vital Signs Vital signs: Vital Signs Temp 97.7 F 08/03/21 08:00 Pulse 84 08/03/21 08:00 Resp 16 08/03/21 08:00 BP 103/71 08/03/21 08:00 Pulse Ox 95 08/03/21 08:00 Intake & Output 08/02/21 08/03/21 08/03/21 18:59 06:59 18:59 Intake Total 240 10 10 Balance 240 10 10 Weight 65 kg Intake: IV 10 10 Invasive Line 3 10 10 Oral 240 0 Other: Voiding Method Toilet Toilet Toilet Urinal Urinal Urinal - Exam Alert and Oriented Mild Distress when speaking Head: NCNT Neck: Supple Lungs: Increased effort Heart: Re, Ir Abdomen: Soft, Tender Ext: Dependent Edema pedal - Labs CBC & Chem 7: 08/03/21 09:08 08/03/21 09:08 Labs: Abnormal Lab Results - Last 24 Hours (Table) 08/02/21 08/02/21 08/02/21 Range/Units 11:58 16:27 20:04 RBC (4.30-5.90) m/uL Hgb (13.0-17.5) gm/dL Hct (39.0-53.0) % MCHC (31.0-37.0) g/dL RDW (11.5-15.5) % BUN (9-20) mg/dL Glucose (74-99) mg/dL POC Glucose (mg/dL) 165 H 221 H 159 H (75-99) mg/dL Alkaline Phosphatase (38-126) U/L Total Protein (6.3-8.2) g/dL Albumin (3.5-5.0) g/dL 08/03/21 08/03/21 08/03/21 Range/Units 06:07 09:08 09:08 RBC 4.11 L (4.30-5.90) m/uL Hgb 10.9 L (13.0-17.5) gm/dL Hct 35.6 L (39.0-53.0) % MCHC 30.7 L (31.0-37.0) g/dL RDW 20.5 H (11.5-15.5) % BUN 32 H (9-20) mg/dL Glucose 113 H (74-99) mg/dL POC Glucose (mg/dL) 122 H (75-99) mg/dL Alkaline Phosphatase 247 H (38-126) U/L Total Protein 5.7 L (6.3-8.2) g/dL Albumin 3.3 L (3.5-5.0) g/dL Assessment and Plan (1) Normocytic anemia Current Visit: Yes Status: Acute Code(s): D64.9 - ANEMIA, UNSPECIFIED SNOMED Code(s): 552967251 (2) Acute exacerbation of congestive heart failure Current Visit: No Status: Acute Code(s): I50.9 - HEART FAILURE, UNSPECIFIED SNOMED Code(s): 464217757 (3) Leukocytosis Current Visit: No Status: Acute Code(s): D72.829 - ELEVATED WHITE BLOOD CELL COUNT, UNSPECIFIED SNOMED Code(s): 305742678 (4) Type 2 diabetes mellitus with peripheral neuropathy Current Visit: No Status: Chronic Code(s): E11.42 - TYPE 2 DIABETES MELLITUS WITH DIABETIC POLYNEUROPATHY SNOMED Code(s): 07301126 Plan: Await completion of full hematological work-up and skeletal survey for recommendations CT contrast contraindication with metformin, message to nursing to assist in primary team recommendation for this. Continue monitoring daily CBC. Suspicious picture for Multiple Myeloma, awaiting final electrophoresis and immunofixation. no apparent bone lesions noted No monoclonal proteins, no obvious lytic lesions identified. Increased [place] Lambda Ratio. Case reviewed in full with Dr. 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 Bone Marrow Biopsy planned for AM tomorrow Patient has chronic back pain which is likely exacerbated by this diagnosis. He use to follow with Dr. Jackson and take MSER 10mg daily, he states the injections work very good as well although he has noticed rapid decline since Ortho has stated not to take ER Morphine if he wanted to pursue injections. Patient is very concerned about this quality of life issue. Will plan BM biopsy in am He has been started on prednisone daily, unclear reason. With myeloma he will be likely started on pulse dexamethasone at high doses requiring close monitoring of GLucose ans diabetes control. Greater than 38 minutes spent with patient and
[2021-08-03 20:15] LABS: Glucose,Whole Blood 179 mg/dL (75-99)
[2021-08-03] MEDS: LORATADINE 10 MG TAB PO SCH (21:04)
[2021-08-03] MEDS: TEMAZEPAM 15 MG CAP PO SCH (21:04)
[2021-08-03] MEDS: TAMSULOSIN 0.4 MG CAP.ER.24H PO SCH (21:04)
[2021-08-04] MEDS: HYDROmorphone 0.5 MG/0.5 ML SYRINGE IVP PRN ×6 (02:01→22:14)
[2021-08-04 05:59] LABS: Glucose,Whole Blood 174 mg/dL (75-99)
[2021-08-04] MEDS: INSULIN ASPART (NovoLOG) 100 UNIT/ML VIAL SQ SCH ×4 (06:37→21:18)
[2021-08-04] MEDS ORDERED: MIDAZOLAM 2 MG/2 ML VIAL ONE (09:05)
[2021-08-04] MEDS ORDERED: PROPOFOL 10 MG/ML 20 ML VIAL IV ONE (09:05)
[2021-08-04 09:35] LABS: ALT 43 U/L (4-49); AST 27 U/L (17-59); African American GFR (CKD) >90 (>60 ml/min/1.73 sqM); Albumin 3.8 g/dL (3.5-5.0); Alkaline Phosphatase 242 U/L (38-126); Anion Gap 11 mmol/L; Blood Urea Nitrogen 28 mg/dL (9-20); Calcium 9.8 mg/dL (8.4-10.2); Carbon Dioxide 29 mmol/L (22-30); Chloride 100 mmol/L (98-107); Glucose 117 mg/dL (74-99); Non-African American GFR(CKD) 85 (>60 ml/min/1.73 sqM); Potassium 3.7 mmol/L (3.5-5.1); Sodium 140 mmol/L (137-145); Total Bilirubin 1.4 mg/dL (0.2-1.3); Total Protein 6.3 g/dL (6.3-8.2)
[2021-08-04] MEDS: predniSONE 10 MG TAB PO SCH (09:52)
[2021-08-04] MEDS: FUROSEMIDE 40 MG TAB PO SCH ×2 (09:53→17:18)
[2021-08-04] MEDS: DOCUSATE 100 MG CAP PO SCH ×2 (09:53→21:18)
[2021-08-04] MEDS: PANTOPRAZOLE 40 MG TABLET PO SCH ×2 (09:53→21:18)
[2021-08-04] MEDS: ATORVASTATIN 10 MG TAB PO SCH (09:53)
[2021-08-04] MEDS: ISOSORBIDE MONONITRATE ER 60 MG TAB.ER.24H PO SCH (09:53)
[2021-08-04] MEDS: ASPIRIN 81 MG PO SCH (09:53)
[2021-08-04] MEDS: methIMAzole 5 MG TAB PO SCH (09:53)
[2021-08-04] MEDS: CITALOPRAM HYDROBROMIDE 20 MG TAB PO SCH (09:53)
[2021-08-04] MEDS: polyethylene glycoL 3350 17 GM POWD.PACK PO SCH (09:55)
[2021-08-04] MEDS: FLUTICASONE 50MCG/SPRAY NASAL 16GM EA NOSTRIL SCH ×2 (09:56→21:19)
[2021-08-04 09:59] LABS: Anisocytosis Moderate; HCT 37.1 % (39.0-53.0); HGB 11.4 gm/dL (13.0-17.5); Hypochromasia Marked; MCH 26.7 pg (25.0-35.0); MCHC 30.7 g/dL (31.0-37.0); Mean Platelet Volume 9.3; Microcytosis Slight; Platelet Count 259 k/uL (150-450); Poikilocytosis Slight; RBC 4.26 m/uL (4.30-5.90); RDW 20.3 % (11.5-15.5); WBC 9.8 k/uL (3.8-10.6)
--- NOTE | 2021-08-04 10:10 | CT ---
EXAMINATION TYPE: CT biopsy bone marrow DATE OF EXAM: 08/04/2021 COMPARISON: None HISTORY: Request for a bone marrow biopsy possible myeloma CT DLP: [id number] mGycm The procedure is discussed with the patient, the risks, complications, benefits and alternatives, wer e discussed and any questions were answered. Informed consent was obtained. The patient is placed p jamir on the CT table, prepped and draped in the usual sterile fashion. [place] [facility] [place]. Utilizing 11-gauge core biopsy needle access into the left iliac bone was achieved with aspirate and single core sample obtained. Pathology pending. All elements of maximal barrier technique were util ized. The patient remained stable throughout the procedure with no immediate postprocedural complica tion. IMPRESSION: 1. Successful CT guided bone marrow biopsy
[2021-08-04 11:28] LABS: Glucose,Whole Blood 144 mg/dL (75-99)
[2021-08-04 15:48] LABS: Lymphocytes # (M) 2.55 k/uL (1.0-4.8); Monocytes # (M) 0.88 k/uL (0-1.0); Myelocytes % 1 %; Neutrophils # (M) 6.08 k/uL (1.3-7.7); Neutrophils % (M) 62 %; Nucleated Red Blood Cells 0 /100 WBC (0-0); Total Cells Counted 200
[2021-08-04 15:49] LABS: Ovalocytes Present
[2021-08-04 16:20] LABS: Glucose,Whole Blood 270 mg/dL (75-99)
--- NOTE | 2021-08-04 17:57 | P.PN ---
Subjective Progress Note Date: 08/04/21 Gaetano Lorenz, is a year old male who presented to [facility] emergency room with a chief complaint of dizziness near syncope and shortness of breath. He was evaluated in the emergency room vital examination on presentation revealed a temperature of 97.9 pulse 57 respiration 18 blood pressure 91/68 pulse ox 99% on room air. Laboratory data revealed a white blood count of 15.1 hemoglobin 11.7 platelet count 376 sodium 133 BUN 32 creatinine 0.88 glucose 165 lactic acid 2.2 troponin level 1.2 coronary 5PCR was negative Testing in the emergency room revealed EKG revealed sinus bradycardia with first-degree AV block and right bundle branch block, chest x-ray revealed mild pleural reaction at the lung bases. Patient was admitted to medical floor for further evaluation and treatment Past medical history is significant for chronic diastolic congestive heart failure, underlying history of COPD with chronic hypoxic respiratory failure requiring home oxygen use, underlying history of hypertension, underlying history of degenerative disc disease with chronic back pain On review of systems Patient was seen and examined on the medical floor, he is alert and oriented x 3 in no distress, he denies any complaints there is no fever or chills no headache or dizziness no chest pain no shortness of breath no palpitation no cough no nausea or vomiting no abdominal pain no diarrhea no bl ood in the stools no burning with urination no frequency or urgency and no hematuria, there is no weakness or numbness in any of the extremities no change in vision speech or gait. On 07/26/2021 patient was seen and examined on the telemetry floor he is alert and oriented 3 in no apparent distress he is still complaining of shortness of breath with any activity, he can only walk a few steps before having trouble breathing, he is complaining of back pain, otherwise he denies any complaints th ere is no fever or chills no headache or dizziness no chest pain, no cough no nausea or vomiting no abdominal pain no diarrhea no blood in the stools no burning with urination no frequency or urgency and no hematuria On 07/27/2021 patient is alert and oriented 3. Patient is currently being followed by oncology services and cardiology services. At this time patient remained short of breath with activity. Patient denies chest pain. Patient denies nausea vomiting or diarrhea. Patient denies any urinary burning or frequency On 07/28/2021 patient's alert and oriented 3. Patient remained short of breath with activity. Cardiology oncology services are following further workup pending per oncology and cardiology services. Patient reports occasional shortness breath and chest pain. Patient denies nausea vomiting or diarrhea. Patient denies any urinary burning or frequency On 07/29/2021 patient's alert and oriented 3. RHC test and bone scan to be completed today. Patient remains with episodes of shortness of breath. On 07/30/2021 patient was seen and examined on the medical floor he is alert and oriented 3 in no apparent distress he is complaining of back pain and complai aubrie of shortness of breath with activity, otherwise he denies any complaints there is no fever or chills no headache or dizziness no chest pain, no nausea or vomiting no abdominal pain no diarrhea no blood in the stools no burning with urination no frequency or urgency and no hematuria, patient underwent cardiac catheterization yesterday he is followed closely by cardiology and hematology plan is for possible bone marrow biopsy on Sunday07/31/2021 patient's alert and oriented 3. Patient status post right heart cath plans for possible bone marrow biopsy tomorrow per hematology services. Patient still complaining of occasional shortness breath with activity. Patient denies chest pain. Patient denies nausea vomiting or diarrhea. Patient denies any urinary burning or frequency On 08/01/2021 patient's alert and oriented 3. Plans for bone marrow biopsy today per hematology services. Patient still complaining of intermittent episodes of shortness of breath. Patient denies chest pain. Patient denies nausea vomiting or diarrhea. Patient denies any urinary burning or frequency. On 08/02/2021atient was seen and examined on the medical floor, he is alert and oriented x 3 in no distress, he denies any complaints there is no fever or chills no headache or dizziness no chest pain no shortness of breath no palpitation no cough no nausea or vomiting no abdominal pain no diarrhea no blood in the stools no burning with urination no frequency or urgency and no hematuria, there is no weakness or numbness in any of the extremities no change in vision speech or gait. Patient is complaining of feeling dizzy when he stands up will check orthostatic blood pressure. At this time we are awaiting bone marrow biopsy. On 08/03/2021. Orders for bone marrow biopsy tomorrow. Per patient him and his have a meeting with oncology services today at noon. Patient is currently resting comfortably in bed. Vital signs remained stable. Patient denies chest pain. Patient denies nausea vomiting or diarrhea. Patient denies any urinary burning or frequency. On 08/04/2021 patient was seen and examined on the telemetry floor, he is alert and oriented 3 in no apparent distress, he underwent bone marrow biopsy this morning, he is complaining of pain, he is also complaining of shortness of breath with any activity, otherwise he denies any complaints there is no fever or chills no headache or dizziness no chest pain no cough no nausea or vomiting no abdominal pain no diarrhea no blood in the stools no burning with urination no frequency or urgency and no hematuria, there is no weakness or numbness in any of the extremities there is no change in vision speech or gait. Objective - Vital Signs Vital signs: Vital Signs Temp 99.2 F 08/04/21 10:00 Pulse 77 08/04/21 12:30 Resp 16 08/04/21 12:30 BP 91/56 08/04/21 12:30 Pulse Ox 94 L 08/04/21 10:00 Intake & Output 08/03/21 08/04/21 08/04/21 18:59 06:59 18:59 Intake Total 378 30 10 Output Total 500 Balance 378 -470 10 Weight 77.2 kg Intake: IV 20 30 10 Invasive Line 3 20 20 Invasive Line 4 10 10 Oral 358 Output: Urine 500 Other: Voiding Method Toilet Toilet Toilet Urinal Urinal Urinal - Exam In general patient is alert and oriented x 3 in no distress HEENT head normocephalic and atraumatic Neck is supple no JVD no goiter no lymphadenopathy no carotid bruit Chest examination is clear to auscultation no crackles no wheezing Cardiac exam reveals regular heart sounds S1 and S2 no gallops no murmurs Abdomen is soft nontender no organomegaly with normal bowel sounds Extremity exam reveals no edema no cyanosis or clubbing Neurological examination reveals no gross focal deficits - Labs CBC & Chem 7: 08/04/21 08:13 08/04/21 08:13 Labs: Abnormal Lab Results - Last 24 Hours (Table) 08/03/21 08/03/21 08/04/21 Range/Units 16:20 20:14 05:58 RBC (4.30-5.90) m/uL Hgb (13.0-17.5) gm/dL Hct (39.0-53.0) % MCHC (31.0-37.0) g/dL RDW (11.5-15.5) % BUN (9-20) mg/dL Glucose (74-99) mg/dL POC Glucose (mg/dL) 235 H 179 H 174 H (75-99) mg/dL Total Bilirubin (0.2-1.3) mg/dL Alkaline Phosphatase (38-126) U/L 08/04/21 08/04/21 08/04/21 Range/Units 08:13 08:13 11:26 RBC 4.26 L (4.30-5.90) m/uL Hgb 11.4 L (13.0-17.5) gm/dL Hct 37.1 L (39.0-53.0) % MCHC 30.7 L (31.0-37.0) g/dL RDW 20.3 H (11.5-15.5) % BUN 28 H (9-20) mg/dL Glucose 117 H (74-99) mg/dL POC Glucose (mg/dL) 144 H (75-99) mg/dL Total Bilirubin 1.4 H (0.2-1.3) mg/dL Alkaline Phosphatase 242 H (38-126) U/L Assessment and Plan Plan: Elevated troponin levels, possible non St elevation myocardial infarction, however patient had normal cardiac catheterization recently, he continues to come to the hospital with elevated troponin, 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 Cerda. 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 Oncology service is following At this time patient is admitted to telemetry floor Oncology and cardiology services following Bone marrow biopsy possibly to be schedule 08/04/2021 Right heart cath completed on 07/29/2021
[2021-08-04 19:43] LABS: Glucose,Whole Blood 233 mg/dL (75-99)
[2021-08-04] MEDS: TAMSULOSIN 0.4 MG CAP.ER.24H PO SCH (21:18)
[2021-08-04] MEDS: TEMAZEPAM 15 MG CAP PO SCH (21:18)
[2021-08-04] MEDS: LORATADINE 10 MG TAB PO SCH (21:18)
[2021-08-05] MEDS: HYDROmorphone 0.5 MG/0.5 ML SYRINGE IVP PRN ×3 (02:22→10:12)
[2021-08-05 04:02] VITALS: RESP 16; TEMP 97.9
[2021-08-05 05:40] LABS: Glucose,Whole Blood 175 mg/dL (75-99)
[2021-08-05] MEDS: INSULIN ASPART (NovoLOG) 100 UNIT/ML VIAL SQ SCH (06:17)
[2021-08-05 09:14] LABS: Anisocytosis Moderate; Basophils # (A) 0.1 k/uL (0-0.2); Basophils % (A) 1 %; Eosinophils # (A) 0.2 k/uL (0-0.7); Eosinophils % (A) 2 %; HCT 36.4 % (39.0-53.0); HGB 10.8 gm/dL (13.0-17.5); Hypochromasia Marked; Lymphocytes # (A) 2.5 k/uL (1.0-4.8); Lymphocytes % (A) 27 %; MCHC 29.7 g/dL (31.0-37.0); MCV 87.5 fL (80.0-100.0); Mean Platelet Volume 9.6; Microcytosis Slight; Monocytes # (A) 0.9 k/uL (0-1.0); Monocytes % (A) 10 %; Neutrophils # (A) 5.5 k/uL (1.3-7.7); Neutrophils % (A) 58 %; Platelet Count 245 k/uL (150-450); Poikilocytosis Slight; RBC 4.15 m/uL (4.30-5.90); RDW 20.2 % (11.5-15.5); WBC 9.4 k/uL (3.8-10.6)
[2021-08-05 09:34] LABS: ALT 35 U/L (4-49); AST 23 U/L (17-59); African American GFR (CKD) >90 (>60 ml/min/1.73 sqM); Albumin 3.4 g/dL (3.5-5.0); Alkaline Phosphatase 192 U/L (38-126); Anion Gap 8 mmol/L; Blood Urea Nitrogen 27 mg/dL (9-20); Calcium 9.3 mg/dL (8.4-10.2); Carbon Dioxide 29 mmol/L (22-30); Chloride 100 mmol/L (98-107); Glucose 146 mg/dL (74-99); Magnesium 1.7 mg/dL (1.6-2.3); Non-African American GFR(CKD) 81 (>60 ml/min/1.73 sqM); Potassium 3.7 mmol/L (3.5-5.1); Sodium 137 mmol/L (137-145); Total Protein 5.7 g/dL (6.3-8.2)
[2021-08-05] MEDS: ATORVASTATIN 10 MG TAB PO SCH (09:42)
[2021-08-05] MEDS: predniSONE 10 MG TAB PO SCH (09:42)
[2021-08-05] MEDS: CITALOPRAM HYDROBROMIDE 20 MG TAB PO SCH (09:42)
[2021-08-05] MEDS: polyethylene glycoL 3350 17 GM POWD.PACK PO SCH (09:42)
[2021-08-05] MEDS: FUROSEMIDE 40 MG TAB PO SCH (09:42)
[2021-08-05] MEDS: FLUTICASONE 50MCG/SPRAY NASAL 16GM EA NOSTRIL SCH (09:42)
[2021-08-05] MEDS: DOCUSATE 100 MG CAP PO SCH (09:42)
[2021-08-05] MEDS: ISOSORBIDE MONONITRATE ER 60 MG TAB.ER.24H PO SCH (09:42)
[2021-08-05] MEDS: ASPIRIN 81 MG PO SCH (09:42)
[2021-08-05] MEDS: PANTOPRAZOLE 40 MG TABLET PO SCH (09:42)
--- NOTE | 2021-08-05 10:26 | P.DS ---
Providers Date of admission: 07/24/21 21:08 Expected date of discharge: 08/05/21 Attending physician: Haley Villa Consults: 07/25/21 18:54 Consult Physician Routine Consulting Provider: Finn Rojo Consult Reason/Comments: ? 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 Cerda. 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 Oncology service is following Hospital course: Gaetano Lorenz, is a year old male who presented to [facility] emergency room with a chief complaint of dizziness near syncope and shortness of breath. He was evaluated in the emergency room vital examination on presentation revealed a temperature of 97.9 pulse 57 respiration 18 blood pressure 91/68 pulse ox 99% on room air. Laboratory data revealed a white blood count of 15.1 hemoglobin 11.7 platelet count 376 sodium 133 BUN 32 creatinine 0.88 glucose 165 lactic acid 2.2 troponin level 1.2 coronary 5PCR was negative Testing in the emergency room revealed EKG revealed sinus bradycardia with first-degree AV block and right bundle branch block, chest x-ray revealed mild pleural reaction at the lung bases. Patient was admitted to medical floor for further evaluation and treatment Past medical history is significant for chronic diastolic congestive heart failure, underlying history of COPD with chronic hypoxic respiratory failure requiring home oxygen use, underlying history of hypertension, underlying history of degenerative disc disease with chronic back pain On review of systems Patient was seen and examined on the medical floor, he is alert and oriented x 3 in no distress, he denies any complaints there is no fever or chills no headache or dizziness no chest pain no shortness of breath no palpitation no cough no nausea or vomiting no abdominal pain no diarrhea no blood in the stools no burning with urination no frequency or urgency and no hematuria, there is no weakness or numbness in any of the extremities no change in vision speech or gait. On 07/26/2021 patient was seen and examined on the telemetry floor he is alert and oriented 3 in no apparent distress he is still complaining of shortness of breath with any activity, he can only walk a few steps before having trouble breathing, he is complaining of back pain, otherwise he denies any complaints there is no fever or chills no headache or dizziness no chest pain, no cough no nausea or vomiting no abdominal pain no diarrhea no blood in the stools no burning with urination no frequency or urgency and no hematuria On 07/27/2021 patient is alert and oriented 3. Patient is currently being followed by oncology services and cardiology services. At this time patient remained short of breath with activity. Patient denies chest pain. Patient denies nausea vomiting or diarrhea. Patient denies any urinary burning or frequency On 07/28/2021 patient's alert and oriented 3. Patient remained short of breath with activity. Cardiology oncology services are following further workup pending per oncology and cardiology services. Patient reports occasional shortness breath and chest pain. Patient denies nausea vomiting or diarrhea. Patient denies any urinary burning or frequency On 07/29/2021 patient's alert and oriented 3. RHC test and bone scan to be completed today. Patient remains with episodes of shortness of breath. On 07/30/2021 patient was seen and examined on the medical floor he is alert and oriented 3 in no apparent distress he is complaining of back pain and complaining of shortness of breath with activity, otherwise he denies any complaints there is no fever or chills no headache or dizziness no chest pain, no nausea or vomiting no abdominal pain no diarrhea no blood in the stools no burning with urination no frequency or urgency and no hematuria, patient underwent cardiac catheterization yesterday he is followed closely by cardiology and hematology plan is for possible bone marrow biopsy on Sunday07/31/2021 patient's alert and oriented 3. Patient status post right heart cath plans for possible bone marrow biopsy tomorrow per hematology services. Patient still complaining of occasional shortness breath with activity. Patient denies chest pain. Patient denies nausea vomiting or diarrhea. Patient denies any urinary burning or frequency On 08/01/2021 patient's alert and oriented 3. Plans for bone marrow biopsy today per hematology services. Patient still complaining of intermittent episodes of shortness of breath. Patient denies chest pain. Patient denies nausea vomiting or diarrhea. Patient denies any urinary burning or frequency. On 08/02/2021atient was seen and examined on the medical floor, he is alert and oriented x 3 in no distress, he denies any complaints there is no fever or chill s no headache or dizziness no chest pain no shortness of breath no palpitation no cough no nausea or vomiting no abdominal pain no diarrhea no blood in the stools no burning with urination no frequency or urgency and no hematuria, there is no weakness or numbness in any of the extremities no change in vision speech or gait. Patient is complaining of feeling dizzy when he stands up will check orthostatic blood pressure. At this time we are awaiting bone marrow biopsy. On 08/03/2021. Orders for bone marrow biopsy tomorrow. Per patient him and his have a meeting with oncology services today at noon. Patient is currently resting comfortably in bed. Vital signs remained stable. Patient denies chest pain. Patient denies nausea vomiting or diarrhea. Patient denies any urinary burning or frequency. On 08/04/2021 patient was seen and examined on the telemetry floor, he is alert and oriented 3 in no apparent distress, he underwent bone marrow biopsy this morning, he is complaining of pain, he is also complaining of shortness of breath with any activity, otherwise he denies any complaints there is no fever or chills no headache or dizziness no chest pain no cough no nausea or vomiting no abdominal pain no diarrhea no blood in the stools no burning with urination no frequency or urgency and no hematuria, there is no weakness or numbness in any of the extremities there is no change in vision speech or gait. Patient Condition at Discharge: Serious Plan - Discharge Summary Discharge Rx Participant: No New Discharge Prescriptions: New Aspirin 81 mg PO DAILY tab Docusate [Colace] 100 mg PO BID cap Isosorbide Mononitrate ER [Imdur] 60 mg PO DAILY tablet polyethylene glycoL 3350 [Miralax] 17 gm PO DAILY packet Continue Temazepam [Restoril] 30 mg PO HS Citalopram Hydrobromide [CeleXA] 40 mg PO DAILY Levocetirizine Dihydrochloride [Xyzal] 5 mg PO HS Tamsulosin [Flomax] 0.4 mg PO HS metFORMIN HCL [Glucophage XR] 500 mg PO BID Fluticasone Nasal [place] [Flonase Nasal [place]] 2 spr EA NOSTRIL BID Dicyclomine [Bentyl] 20 mg PO QID PRN PRN Reason: Gi Upset Diclofenac Sodium Gel [Voltaren Gel] 4 gm TOPICAL TID PRN PRN Reason: Pain Gabapentin 600 mg PO Q8H PRN PRN Reason: Pain Atorvastatin [Lipitor] 10 mg PO DAILY 30 Days #30 tab Omeprazole 40 mg PO BID Furosemide [Lasix] 40 mg PO BID@0900,1600 30 Days #60 tab methIMAzole [Tapazole] 5 mg PO Q48H 60 Days #30 tab predniSONE 10 mg PO DAILY Discontinued Loratadine-Pseudoeph 10-240 mg [Claritin-D 24 Hour] 1 tab PO DAILY PRN PRN Reason: Allergy Symptoms Spironolactone 12.5 mg PO DAILY Metoprolol Tartrate [Lopressor] 25 mg PO BID Ibuprofen [Motrin] 800 mg PO TID PRN PRN Reason: Pain Discharge Medication List Temazepam [Restoril] 30 mg PO HS 03/05/15 [History] Citalopram Hydrobromide [CeleXA] 40 mg PO DAILY 02/05/16 [History] Levocetirizine Dihydrochloride [Xyzal] 5 mg PO HS 07/13/16 [History] Tamsulosin [Flomax] 0.4 mg PO HS 07/13/16 [History] metFORMIN HCL [Glucophage XR] 500 mg PO BID 11/27/16 [History] Fluticasone Nasal [place] [Flonase Nasal [place]] 2 spr EA NOSTRIL BID 03/26/18 [History] Dicyclomine [Bentyl] 20 mg PO QID PRN 07/21/20 [History] Diclofenac Sodium Gel [Voltaren Gel] 4 gm TOPICAL TID PRN 01/06/21 [History] Gabapentin 600 mg PO Q8H PRN 03/20/21 [History] Omeprazole 40 mg PO BID 03/20/21 [History] Atorvastatin [Lipitor] 10 mg PO DAILY 30 Days #30 tab 03/25/21 [Rx] Furosemide [Lasix] 40 mg PO BID@0900,1600 30 Days #60 tab 07/08/21 [Rx] methIMAzole [Tapazole] 5 mg PO Q48H 60 Days #30 tab 07/08/21 [Rx] predniSONE 10 mg PO DAILY 07/24/21 [History] Aspirin 81 mg PO DAILY tab 08/05/21 [Rx] Docusate [Colace] 100 mg PO BID cap 08/05/21 [Rx] Isosorbide Mononitrate ER [Imdur] 60 mg PO DAILY tablet 08/05/21 [Rx] polyethylene glycoL 3350 [Miralax] 17 gm PO DAILY packet 08/05/21 [Rx] Follow up Appointment(s)/Referral(s): Siria Hastings MD [Primary Care Provider] - 1-2 days [facility] [facility] [NON-STAFF] - (Can help with housekeeping and Meals on Wheels if needed. Call to get established with them. ) Discharge/Stand Alone Forms: Who Do I Call?
[2021-08-05 10:56] VITALS: BP 102/71; PULSE 75
--- NOTE | 2021-08-05 14:22 | P.PN ---
Subjective Progress Note Date: 08/05/21 Principal diagnosis: Evaluate pt for possible amloidosis In f/u pt cont to be SOB on exertion, generalized weakness in the legs, both are stable but not improved. He can rest and recover but his endurance from 3 mo ago is significantly reduced. No other c/o. He wants to know if he can cont to get his steroids injections in the back for chronic pain Objective - Vital Signs Vital signs: Vital Signs Temp 97.9 F 08/05/21 04:00 Pulse 75 08/05/21 08:00 Resp 16 08/05/21 08:00 BP 102/71 08/05/21 08:00 Pulse Ox 95 08/05/21 08:00 Intake & Output 08/04/21 08/05/21 08/05/21 18:59 06:59 18:59 Intake Total 500 20 200 Balance 500 20 200 Weight 77 kg Intake: IV 20 20 20 Invasive Line 4 20 20 20 Oral 480 180 Other: Voiding Method Toilet Toilet Toilet Urinal Urinal Urinal - Constitutional General appearance: Present: average body habitus, cooperative, no acute distress - EENT Eyes: Present: anicteric sclerae, EOMI ENT: Present: hearing grossly normal - Respiratory Respiratory: bilateral: CTA - Cardiovascular Heart sounds: normal: S1, S2 - Gastrointestinal General gastrointestinal: Present: normal bowel sounds, soft - Integumentary Integumentary: Present: normal - Neurologic Neurologic: Present: CNII-XII intact - Musculoskeletal Musculoskeletal: Present: strength equal bilaterally - Psychiatric Psychiatric: Present: A&O x's 3, appropriate affect, intact judgment & insight - Labs CBC & Chem 7: 08/05/21 08:54 08/05/21 08:54 Labs: Abnormal Lab Results - Last 24 Hours (Table) 08/04/21 08/04/21 08/04/21 Range/Units 08:13 16:18 19:42 RBC (4.30-5.90) m/uL Hgb (13.0-17.5) gm/dL Hct (39.0-53.0) % MCHC (31.0-37.0) g/dL RDW (11.5-15.5) % Myelocytes # (Manual) 0.10 H (0) k/uL BUN (9-20) mg/dL Glucose (74-99) mg/dL POC Glucose (mg/dL) 270 H 233 H (75-99) mg/dL Alkaline Phosphatase (38-126) U/L Total Protein (6.3-8.2) g/dL Albumin (3.5-5.0) g/dL 08/05/21 08/05/21 08/05/21 Range/Units 05:39 08:54 08:54 RBC 4.15 L (4.30-5.90) m/uL Hgb 10.8 L (13.0-17.5) gm/dL Hct 36.4 L (39.0-53.0) % MCHC 29.7 L (31.0-37.0) g/dL RDW 20.2 H (11.5-15.5) % Myelocytes # (Manual) (0) k/uL BUN 27 H (9-20) mg/dL Glucose 146 H (74-99) mg/dL POC Glucose (mg/dL) 175 H (75-99) mg/dL Alkaline Phosphatase 192 H (38-126) U/L Total Protein 5.7 L (6.3-8.2) g/dL Albumin 3.4 L (3.5-5.0) g/dL Assessment and Plan (1) Normocytic anemia Status: Acute Code(s): D64.9 - ANEMIA, UNSPECIFIED SNOMED Code(s): 953456522 Plan: Labs suggestive of a frree light myeloma. Bone marrow biopsy results pending. Nothing acute from Hem/Onc. Plan is for pt to see Dr. Montes once marrow results are in Had a long discussion with pt about myeloma, disease, diagnosis, prognosis and how this impacts his current symptoms-at least in the last few months. >30 min spent Time with Patient: Greater than 30
== END 2021-08-05 12:23 | disposition home or self-care (01) | DRG 280 ==
LOC: EC 18:36 → 3SCARD 21:08
PROVIDERS: ADMIT Internal Medicine; ATTEND Internal Medicine
DX: I21.4 Non-ST elevation (NSTEMI) myocardial infarction (principal); I50.33 Acute on chronic diastolic (congestive) heart failure; C90.00 Multiple myeloma not having achieved remission; E85.9 Amyloidosis, unspecified; E85.4 Organ-limited amyloidosis; I43 Cardiomyopathy in diseases classified elsewhere; J96.11 Chronic respiratory failure with hypoxia; D64.9 Anemia, unspecified; D72.829 Elevated white blood cell count, unspecified; E11.42 Type 2 diabetes mellitus with diabetic polyneuropathy; E78.5 Hyperlipidemia, unspecified; G89.29 Other chronic pain; H91.90 Unspecified hearing loss, unspecified ear; I11.0 Hypertensive heart disease with heart failure; I45.10 Unspecified right bundle-branch block; I44.0 Atrioventricular block, first degree; J44.9 Chronic obstructive pulmonary disease, unspecified; Z20.822 Contact with and (suspected) exposure to COVID-19; Z99.81 Dependence on supplemental oxygen; Z85.3 Personal history of malignant neoplasm of breast; Z85.828 Personal history of other malignant neoplasm of skin; M54.9 Dorsalgia, unspecified; G43.B0 Ophthalmoplegic migraine, not intractable; G47.30 Sleep apnea, unspecified; Z99.89 Dependence on other enabling machines and devices; K21.9 Gastro-esophageal reflux disease without esophagitis; M19.90 Unspecified osteoarthritis, unspecified site; R00.1 Bradycardia, unspecified; Z97.4 Presence of external hearing-aid; Z79.84 Long term (current) use of oral hypoglycemic drugs; Z79.899 Other long term (current) drug therapy; Z87.442 Personal history of urinary calculi; Z87.891 Personal history of nicotine dependence; Z96.652 Presence of left artificial knee joint; Z98.890 Other specified postprocedural states; Z79.82 Long term (current) use of aspirin; Z79.52 Long term (current) use of systemic steroids
CPT/HCPCS: 36415; 38222; 71046; 74177; 77012; 77075; 78306; 80048; 80053; 81050; 82232; 82306; 82553; 82607; 82728; 82746; 82784; 82810; 83010; 83540; 83550; 83605; 83615; 83735; 83880; 83883; 83921; 84156; 84165; 84166; 84443; 84484; 85018; 85025; 85045; 85379; 85610; 85730; 86334; 86335; 87635; 93005; 93308; 93451; 94760; 96365; 96366; 96368; 99285

== ENCOUNTER 2021-08-08 10:44 | Emergency (ER) | payer MEDICARE ==
[2021-08-08 10:57] VITALS: TEMP 98
[2021-08-08] MEDS ORDERED: MORPHINE SULFATE 4 MG/ML SYRINGE IVP STA (11:18)
[2021-08-08 11:21] LABS: Glucose,Whole Blood 205 mg/dL (75-99)
[2021-08-08 11:43] LABS: Anisocytosis Moderate; Basophils # (A) 0.1 k/uL (0-0.2); Basophils % (A) 1 %; Eosinophils # (A) 0.1 k/uL (0-0.7); Eosinophils % (A) 1 %; HCT 36.2 % (39.0-53.0); HGB 10.8 gm/dL (13.0-17.5); Hypochromasia Marked; Lymphocytes # (A) 2.1 k/uL (1.0-4.8); Lymphocytes % (A) 20 %; MCH 26.2 pg (25.0-35.0); MCHC 29.9 g/dL (31.0-37.0); MCV 87.7 fL (80.0-100.0); Mean Platelet Volume 9.4; Microcytosis Slight; Monocytes % (A) 10 %; Neutrophils # (A) 6.8 k/uL (1.3-7.7); Neutrophils % (A) 65 %; Platelet Count 263 k/uL (150-450); Poikilocytosis Slight; RBC 4.13 m/uL (4.30-5.90); RDW 20.1 % (11.5-15.5); WBC 10.5 k/uL (3.8-10.6)
[2021-08-08 11:54] LABS: INR 1.4 (<1.2); Partial Thromboplastin Time 22.5 sec (22.0-30.0); Prothrombin Time 13.9 sec (9.0-12.0)
[2021-08-08 12:01] LABS: ALT 30 U/L (4-49); AST 33 U/L (17-59); African American GFR (CKD) >90 (>60 ml/min/1.73 sqM); Albumin 3.7 g/dL (3.5-5.0); Alkaline Phosphatase 346 U/L (38-126); Anion Gap 11 mmol/L; Blood Urea Nitrogen 21 mg/dL (9-20); Calcium 9.3 mg/dL (8.4-10.2); Carbon Dioxide 26 mmol/L (22-30); Chloride 99 mmol/L (98-107); Glucose 195 mg/dL (74-99); Non-African American GFR(CKD) 90 (>60 ml/min/1.73 sqM); Potassium 3.6 mmol/L (3.5-5.1); Sodium 136 mmol/L (137-145); Total Bilirubin 1.1 mg/dL (0.2-1.3)
--- NOTE | 2021-08-08 12:25 | XR ---
EXAMINATION TYPE: XR chest 2V DATE OF EXAM: 08/08/2021 COMPARISON: 07/24/2021 TECHNIQUE: PA and lateral views submitted. HISTORY: Chest pain FINDINGS: Heart size normal is bilateral infiltrate and small effusion. Coarsened interstitium. Biapical pleura l thickening. Diffuse osteopenia. Arthropathy of the shoulders. Degenerative changes of the spine. IMPRESSION: 1. COPD with bilateral infiltrate and small effusion. Correlate for pneumonia otherwise consider CHF.
--- NOTE | 2021-08-08 15:11 | ED ---
SOB HPI - General Chief Complaint: Shortness of Breath Stated Complaint: Chest Pain, Difficulty Breathing Time Seen by Provider: 08/08/21 10:59 Source: patient, EMS Mode of arrival: EMS Limitations: no limitations - History of Present Illness Initial Comments: The patient is a 71-year-old male with multiple medical conditions who presents to the emergency department with continued shortness of breath. Patient states that he has been short of breath since April. He is on home oxygen at [address] Cerda. He is on chronic steroids. He was recently hospitalized on through the of this month for his respiratory insufficiency. 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 He had a CT-guided bone marrow biopsy done on the . He was instructed at discharge that he needs to follow-up with oncology for the results of the biopsy. He was to call and make an appointment. Patient states that he has not called to make an appointment. He has had difficulty with his care at home. States he has b een unable to take care of himself at this time. Patient was offered homecare however he refused. He denies any new symptoms. No fevers or chest pain. Patient is requesting Dilaudid for pain control. He informs me that he enjoys being under the care of the nurse practitioner Fariba Desai as she provides him with the "pain medications" that he needs. He is complaining of his chronic back pain. Denies any new or worsening pain. No abdominal pain. No sick contacts. No other alleviating, precipitating or modifying factors - Related Data Home Medications Medication Instructions Recorded Confirmed Temazepam [Restoril] 30 mg PO HS 03/05/15 08/08/21 Citalopram Hydrobromide [CeleXA] 40 mg PO DAILY 02/05/16 08/08/21 Levocetirizine Dihydrochloride 5 mg PO HS 07/13/16 08/08/21 [Xyzal] Tamsulosin [Flomax] 0.4 mg PO HS 07/13/16 08/08/21 metFORMIN HCL [Glucophage XR] 500 mg PO HS 11/27/16 08/08/21 Fluticasone Nasal [place] [Flonase 2 spr EA NOSTRIL BID 03/26/18 08/08/21 Nasal [place]] Dicyclomine [Bentyl] 20 mg PO QID PRN 07/21/20 08/08/21 Diclofenac Sodium Gel [Voltaren 4 gm TOPICAL TID PRN 01/06/21 08/08/21 Gel] Gabapentin 600 mg PO Q8H PRN 03/20/21 08/08/21 Omeprazole 40 mg PO BID 03/20/21 08/08/21 predniSONE 10 mg PO DAILY 07/24/21 08/08/21 Insulin Glargine,Hum.rec.anlog See Protocol SQ DAILY PRN 08/08/21 08/08/21 [Toujeo Solostar] methIMAzole [Tapazole] 5 mg PO DAILY 08/08/21 08/08/21 Previous Rx's Medication Instructions Recorded Atorvastatin [Lipitor] 10 mg PO DAILY 30 Days #30 tab 03/25/21 Furosemide [Lasix] 40 mg PO BID@0900,1600 30 Days #60 07/08/21 tab Aspirin 81 mg PO DAILY tab 08/05/21 Docusate [Colace] 100 mg PO BID cap 08/05/21 Isosorbide Mononitrate ER [Imdur] 60 mg PO DAILY tablet 08/05/21 Allergies Allergy/AdvReac Type Severity Reaction Status Date / Time cephalexin monohydrate Allergy Rash/Hives Verified 08/08/21 10:57 [From Keflex] clarithromycin [From Biaxin] Allergy Unknown Verified 08/08/21 10:57 gentamicin [Gentamicin] Allergy Unknown Verified 08/08/21 10:57 naproxen Allergy Unknown Verified 08/08/21 10:57 Penicillins Allergy Anaphylaxis Verified 08/08/21 10:57 Sulfa (Sulfonamide Allergy Rash/Hives Verified 08/08/21 10:57 Antibiotics) promethazine AdvReac Nausea & Verified 08/08/21 10:57 Vomiting Review of Systems ROS Statement: Those systems with pertinent positive or pertinent negative responses have been documented in the HPI. ROS Other: All systems not noted in ROS Statement are negative. Past Medical History Past Medical History: Cancer, COPD, Diabetes Mellitus, GERD/Reflux, Hearing Disorder / Deafness, Hypertension, Osteoarthritis (OA), Prostate Disorder, Sleep Apnea/CPAP/BIPAP Additional Past Medical History / Comment(s): Optic migraines, diverticulosis, kidney stones, neuropathy hands & feet, low BACK PAIN. 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 CPAP use, bilateral hearing aid use, wears brace on bilateral legs. History of Any Multi-Drug Resistant Organisms: None Reported Date of last positivie culture/infection: none MDRO Source:: none Past Surgical History: Back Surgery, Breast Surgery, Hernia Repair, Joint Replacement Additional Past Surgical History / Comment(s): EGD . Laparoscopic Mireya Fundoplasty, CYSTOSCOPY AND LITHOTRIPSY LEfT URETERAL STENT-SINCE REMOVED. RIGHT BREAST BIOPSY, TOTAL LEFT KNEE REPLACEMENT, LEFT FOOT SURGERY, BILATERAL INGUINAL HERNIA REPAIR, PERCUTANEOUS NEPHROLITHOTOMY, BILATERAL hand surgery, ba ck procedure for nerve endings and cortisone injections, ESOPHGEAL DILATION, eye surgery to remove tumors, LUMPECTOMY RIGHT BREAST. Past Anesthesia/Blood Transfusion Reactions: No Reported Reaction Additional Past Anesthesia/Blood Transfusion Reaction / Comment(s): NEVER HAD ANY BLOOD TRANSFUSIONS. Past Psychological History: No Psychological Hx Reported Smoking Status: Former smoker Past Alcohol Use History: None Reported Past Drug Use History: None Reported - Past Family History Father Family Medical History: Cancer Mother Family Medical History: No Reported History Additional Family Medical History / Comment(s): . General Exam Limitations: no limitations General appearance: alert, in no apparent distress Head exam: Present: atraumatic, normocephalic, normal inspection Eye exam: Present: normal appearance, PERRL, EOMI. Absent: scleral icterus, conjunctival injection, periorbital swelling ENT exam: Present: normal exam, mucous membranes moist Neck exam: Present: normal inspection. Absent: tenderness, meningismus, lymphadenopathy Respiratory exam: Present: normal lung sounds bilaterally, other (no distress on his normal oxygen). Absent: respiratory distress, wheezes, rales, rhonchi, stridor Cardiovascular Exam: Present: regular rate, normal rhythm, normal heart sounds. Absent: systolic murmur, diastolic murmur, rubs, gallop, clicks GI/Abdominal exam: Present: soft, normal bowel sounds. Absent: distended, tenderness, guarding, rebound, rigid Extremities exam: Present: normal inspection, full ROM, normal capillary refill. Absent: tenderness, pedal edema, joint swelling, calf tenderness Back exam: Present: normal inspection Neurological exam: Present: alert, oriented X3, CN II-XII intact Psychiatric exam: Present: normal affect, normal mood Skin exam: Present: warm, dry, intact, normal color. Absent: rash Course Vital Signs 08/08/21 08/08/21 08/08/21 10:49 11:00 11:30 Temperature 98 F Pulse Rate 85 82 87 Respiratory 18 16 16 Rate Blood Pressure 115/73 115/73 113/75 O2 Sat by Pulse 98 97 95 Oximetry 08/08/21 08/08/21 08/08/21 12:00 12:30 13:00 Temperature Pulse Rate 85 80 69 Respiratory 16 16 16 Rate Blood Pressure 112/63 104/74 110/72 O2 Sat by Pulse 97 97 96 Oximetry 08/08/21 08/08/21 08/08/21 13:30 14:00 14:30 Temperature Pulse Rate 65 72 81 Respiratory 16 16 16 Rate Blood Pressure 100/72 102/69 97/56 O2 Sat by Pulse 96 94 L 95 Oximetry 08/08/21 15:00 Temperature Pulse Rate 81 Respiratory 16 Rate Blood Pressure 99/62 O2 Sat by Pulse 97 Oximetry Procedures - [place] Protocol (Time Out) Nurse: Paige Gambino Medical Decision Making - Medical Decision Making Upon arrival patient is placed in room 17. Laboratory studies are conducted. IV is established. Patient does maintain saturations of 95-97% on his 2 L. Patient is requesting narcotic pain medications. Patient is given one dose while we await his laboratory studies. I did review the patient's studies. Troponin is elevated at 0.212 however this appears to be coming down from the patient's previous lab value. BNP is also improved at 9630. Lactic acid 2.6. Glucose 195. Chest x-ray does demonstrate some increased pulmonary edema and pleural effusions however not any worse than what the patient was discharged home 3 days ago. He does not demonstrate any signs of respiratory distress inside the room. I did call and speak with Dr. Villa who states that the patient does have an outpatient follow-up with oncology in regards to his diagnosis and further treatment options. He requested the patient not be admitted to the hospital as he was recently hospitalized for a significant period of time and the patient refused at times to leave the hospital due to reported pain and request for narcotics. As laboratory studies appear stable at this time and patient does not demonstrate any increased work of breathing I do feel that the patient is stable for discharge. As he states he is having some difficulties at home with his care I request that case management see him and set up home care. Case management does attempt to set up home care for the patient however he refuses any assistance at home. I informed the patient that he could be admitted for possible rehab needs however the patient is refusing this treatment plan as well. Patient requesting additional narcotics however as this is chronic pain, I inform him that I can order his home medications. I i nformed the patient that he needs to follow up with oncology for further diagnosis and treatment plan. The patient states that he does have difficulty in arranging this follow-up and therefore I did call and speak with Kacy. He is given an appointment time with Dr. Montes on Sunday at 9 AM. Informed the patient that this is a very important appointment and he needs to be present for further care. Patient understood and informed me that he "will attempt to make the appointment." Discharge orders are placed and the patient is discharged home in stable condition - Lab Data Result diagrams: 08/08/21 11:08/08/21 11: Lab Results 08/08/21 08/08/21 08/08/21 Range/Units 11:19 11:27 11:27 WBC 10.5 (3.8-10.6) k/uL RBC 4.13 L (4.30-5.90) m/uL Hgb 10.8 L (13.0-17.5) gm/dL Hct 36.2 L (39.0-53.0) % MCV 87.7 (80.0-100.0) fL MCH 26.2 (25.0-35.0) pg MCHC 29.9 L (31.0-37.0) g/dL RDW 20.1 H (11.5-15.5) % Plt Count 263 (150-450) k/uL MPV 9.4 Neutrophils % 65 % Lymphocytes % 20 % Monocytes % 10 % Eosinophils % 1 % Basophils % 1 % Neutrophils # 6.8 (1.3-7.7) k/uL Lymphocytes # 2.1 (1.0-4.8) k/uL Monocytes # 1.0 (0-1.0) k/uL Eosinophils # 0.1 (0-0.7) k/uL Basophils # 0.1 (0-0.2) k/uL Hypochromasia Marked Poikilocytosis Slight Anisocytosis Moderate Microcytosis Slight PT 13.9 H (9.0-12.0) sec INR 1.4 H (<1.2) APTT 22.5 (22.0-30.0) sec Sodium (137-145) mmol/L Potassium (3.5-5.1) mmol/L Chloride (98-107) mmol/L Carbon Dioxide (22-30) mmol/L Anion Gap mmol/L BUN (9-20) mg/dL Creatinine (0.66-1.25) mg/dL Est GFR (CKD-EPI)AfAm (>60 ml/min/1.73 sqM) Est GFR (CKD-EPI)NonAf (>60 ml/min/1.73 sqM) Glucose (74-99) mg/dL POC Glucose (mg/dL) 205 H (75-99) mg/dL POC Glu [employer] Technician ID Rhonda Abdi Lactic Ac Sepsis Rflx Plasma Lactic Acid Elvin (0.7-2.0) mmol/L Calcium (8.4-10.2) mg/dL Total Bilirubin (0.2-1.3) mg/dL AST (17-59) U/L ALT (4-49) U/L Alkaline Phosphatase (38-126) U/L Troponin I (0.000-0.034) ng/mL NT-Pro-B Natriuret Pep pg/mL Total Protein (6.3-8.2) g/dL Albumin (3.5-5.0) g/dL 08/08/21 08/08/21 08/08/21 Range/Units 11:27 11:27 11:27 WBC (3.8-10.6) k/uL RBC (4.30-5.90) m/uL Hgb (13.0-17.5) gm/dL Hct (39.0-53.0) % MCV (80.0-100.0) fL MCH (25.0-35.0) pg MCHC (31.0-37.0) g/dL RDW (11.5-15.5) % Plt Count (150-450) k/uL MPV Neutrophils % % Lymphocytes % % Monocytes % % Eosinophils % % Basophils % % Neutrophils # (1.3-7.7) k/uL Lymphocytes # (1.0-4.8) k/uL Monocytes # (0-1.0) k/uL Eosinophils # (0-0.7) k/uL Basophils # (0-0.2) k/uL Hypochromasia Poikilocytosis Anisocytosis Microcytosis PT (9.0-12.0) sec INR (<1.2) APTT (22.0-30.0) sec Sodium 136 L (137-145) mmol/L Potassium 3.6 (3.5-5.1) mmol/L Chloride 99 (98-107) mmol/L Carbon Dioxide 26 (22-30) mmol/L Anion Gap 11 mmol/L BUN 21 H (9-20) mg/dL Creatinine 0.80 (0.66-1.25) mg/dL Est GFR (CKD-EPI)AfAm >90 (>60 ml/min/1.73 sqM) Est GFR (CKD-EPI)NonAf 90 (>60 ml/min/1.73 sqM) Glucose 195 H (74-99) mg/dL POC Glucose (mg/dL) (75-99) mg/dL POC Glu [employer] Systems Technician ID Lactic Ac Sepsis Rflx Plasma Lactic Acid Elvin 2.6 H* (0.7-2.0) mmol/L Calcium 9.3 (8.4-10.2) mg/dL Total Bilirubin 1.1 (0.2-1.3) mg/dL AST 33 (17-59) U/L ALT 30 (4-49) U/L Alkaline Phosphatase 346 H (38-126) U/L Troponin I 0.212 H* (0.000-0.034) ng/mL NT-Pro-B Natriuret Pep pg/mL Total Protein 6.0 L (6.3-8.2) g/dL Albumin 3.7 (3.5-5.0) g/dL 08/08/21 08/08/21 Range/Units 11:27 12:00 WBC (3.8-10.6) k/uL RBC (4.30-5.90) m/uL Hgb (13.0-17.5) gm/dL Hct (39.0-53.0) % MCV (80.0-100.0) fL MCH (25.0-35.0) pg MCHC (31.0-37.0) g/dL RDW (11.5-15.5) % Plt Count (150-450) k/uL MPV Neutrophils % % Lymphocytes % % Monocytes % % Eosinophils % % Basophils % % Neutrophils # (1.3-7.7) k/uL Lymphocytes # (1.0-4.8) k/uL Monocytes # (0-1.0) k/uL Eosinophils # (0-0.7) k/uL Basophils # (0-0.2) k/uL Hypochromasia Poikilocytosis Anisocytosis Microcytosis PT (9.0-12.0) sec INR (<1.2) APTT (22.0-30.0) sec Sodium (137-145) mmol/L Potassium (3.5-5.1) mmol/L Chloride (98-107) mmol/L Carbon Dioxide (22-30) mmol/L Anion Gap mmol/L BUN (9-20) mg/dL Creatinine (0.66-1.25) mg/dL Est GFR (CKD-EPI)AfAm (>60 ml/min/1.73 sqM) Est GFR (CKD-EPI)NonAf (>60 ml/min/1.73 sqM) Glucose (74-99) mg/dL POC Glucose (mg/dL) (75-99) mg/dL POC Glu [employer] Systems Technician ID Lactic Ac Sepsis Rflx Y Plasma Lactic Acid Elvin (0.7-2.0) mmol/L Calcium (8.4-10.2) mg/dL Total Bilirubin (0.2-1.3) mg/dL AST (17-59) U/L ALT (4-49) U/L Alkaline Phosphatase (38-126) U/L Troponin I (0.000-0.034) ng/mL NT-Pro-B Natriuret Pep 9630 pg/mL Total Protein (6.3-8.2) g/dL Albumin (3.5-5.0) g/dL - EKG Data EKG Comments: EKG demonstrates sinus rhythm with marked sinus arrhythmia. Rate of 77. MT inte rval 144. QRS 178. QTC of 531. Right bundle-branch block. No acute ST segment elevations Disposition Clinical Impression: Chronic respiratory insufficiency, Lumbar back pain, Elevated troponin, Chronic pain syndrome, Drug-seeking behavior Disposition: HOME SELF-CARE Condition: Stable Instructions (If sedation given, give patient instructions): Dyspnea (ED) Additional Instructions: You have an appointment on Sunday at [address] Montes. You must follow up to receive your bone marrow biopsy results. Is patient prescribed a controlled substance at d/c from ED?: No Referrals: Siria Hastings MD [Primary Care Provider] - 1-2 days Destin Montes MD [STAFF PHYSICIAN] - 1-2 days Time of Disposition: 15:13
[2021-08-08 15:28] VITALS: BP 99/62; PULSE 81; RESP 16
== END 2021-08-08 15:40 | disposition home or self-care (01) ==
LOC: EC 10:44
DX: R06.89 Other abnormalities of breathing (principal); R77.8 Other specified abnormalities of plasma proteins; M54.50 Low back pain, unspecified; R06.02 Shortness of breath; R07.9 Chest pain, unspecified; G89.4 Chronic pain syndrome; J44.9 Chronic obstructive pulmonary disease, unspecified; E11.9 Type 2 diabetes mellitus without complications; I10 Essential (primary) hypertension; K21.9 Gastro-esophageal reflux disease without esophagitis; H91.90 Unspecified hearing loss, unspecified ear; Z87.891 Personal history of nicotine dependence; Z76.5 Malingerer [conscious simulation]; Z79.51 Long term (current) use of inhaled steroids; Z79.899 Other long term (current) drug therapy; Z79.84 Long term (current) use of oral hypoglycemic drugs; Z88.0 Allergy status to penicillin; Z88.2 Allergy status to sulfonamides; Z88.8 Allergy status to other drugs, medicaments and biological substances; Z88.6 Allergy status to analgesic agent; Z88.1 Allergy status to other antibiotic agents
CPT/HCPCS: 99285; 96374; 36415; 93005; 83880; 80053; 83605; 84484; 85025; 85610; 85730; 71046; J2270